=== PATIENT | male | born 1945 | race Caucasian/White ===

== ENCOUNTER 2016-07-24 17:42 | Observation (INO) | payer MEDICARE, BC ==
[2016-07-24] MEDS ORDERED: ASPIRIN 81 MG CHEW PO STA (18:46)
[2016-07-24] MEDS ORDERED: LORazepam 2 MG/ML SYRINGE IV STA (18:46)
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
[2016-07-24 19:08] LABS: ALT 42 U/L (21-72); AST 37 U/L (17-59); Alkaline Phosphatase 90 U/L (38-126); Anion Gap 12 mmol/L; Blood Urea Nitrogen 18 mg/dL (9-20); Carbon Dioxide 24 mmol/L (22-30); Chloride 106 mmol/L (98-107); Glucose 122 mg/dL (74-99); INR 1.2 (<1.1); Magnesium 1.4 mg/dL (1.6-2.3); Non-African American GFR(MDRD) >60 (>60 ml/min/1.73 sqM); Potassium 4.1 mmol/L (3.5-5.1); Prothrombin Time 11.7 sec (9.0-12.0); Sodium 142 mmol/L (137-145); Total Bilirubin 0.6 mg/dL (0.2-1.3); Total Protein 7.5 g/dL (6.3-8.2)
[2016-07-24 19:11] LABS: Basophils % (A) 0 %; CH 30.7; CHCM 35.4; Eosinophils # (A) 0.1 k/uL (0-0.7); Eosinophils % (A) 1 %; HCT 40.1 % (39.0-53.0); HDW 2.95; HGB 13.6 gm/dL (13.0-17.5); Luc # (Auto) 0.12; Luc % (Auto) 2; Lymphocytes # (A) 1.4 k/uL (1.0-4.8); Lymphocytes % (A) 19 %; MCH 29.5 pg (25.0-35.0); MCHC 33.9 g/dL (31.0-37.0); Mean Platelet Volume 6.9; Monocytes # (A) 0.5 k/uL (0-1.0); Monocytes % (A) 6 %; Neutrophils # (A) 5.3 k/uL (1.3-7.7); Neutrophils % (A) 72 %; RBC 4.61 m/uL (4.30-5.90); RDW 15.8 % (11.5-15.5); WBC 7.4 k/uL (3.8-10.6); WBC (Perox) 7.22
--- NOTE | 2016-07-24 19:17 | XR ---
EXAMINATION TYPE: XR chest 2V DATE OF EXAM: 07/24/2016 7:10 PM COMPARISON: Prior chest x-ray first of July 2012 HISTORY: Chest pain and palpitations, COPD TECHNIQUE: Frontal and lateral views of the chest are obtained. FINDINGS: Patient is rotated and the exam is expiratory. Prominence of the central vascularity and i nterstitium is noted. No pneumothorax. Arch size may be accentuated by rotation. There are overlying cardiac leads. IMPRESSION: Expiratory rotated exam. Difficult to exclude pulmonary venous hypertension and intersti tial edema, follow-up as indicated
[2016-07-24 19:24] LABS: Creatine Kinase 36 U/L (55-170)
[2016-07-24 19:37] LABS: Creatine Kinase MB 0.5 ng/mL (0.0-2.4); Troponin I <0.012 ng/mL (0.000-0.034)
[2016-07-24] MEDS ORDERED: NITROGLYCERIN OINT 1 INCH/GM PACKET TOPICAL STA (21:08)
[2016-07-24] MEDS ORDERED: NITROGLYCERIN SL TABS 0.4 MG TAB SUBLINGUAL PRN (21:10)
[2016-07-25] MEDS ORDERED: MAGNESIUM OXIDE 250 MG TAB PO STA (01:06)
[2016-07-25] MEDS: HEPARIN SODIUM,PORCINE 5,000 UNIT/ML 1 ML VIAL SQ SCH ×4 (01:07→23:46)
[2016-07-25 01:23] LABS: Creatine Kinase 34 U/L (55-170)
[2016-07-25] MEDS ORDERED: ONDANSETRON 4 MG/2 ML VIAL IVP STA (01:28)
[2016-07-25] MEDS: MAGNESIUM OXIDE 400 MG TAB PO STA ×2 (01:28→01:30)
[2016-07-25 01:37] LABS: Creatine Kinase MB 0.4 ng/mL (0.0-2.4); Troponin I <0.012 ng/mL (0.000-0.034)
[2016-07-25 07:56] LABS: Cholesterol 131 mg/dL (<200); HDL Cholesterol 43 mg/dL (40-60); Triglycerides 62 mg/dL (<150)
[2016-07-25 08:09] LABS: Creatine Kinase 34 U/L (55-170)
[2016-07-25] MEDS: NITROGLYCERIN OINT 1 INCH/GM PACKET TOPICAL SCH ×5 (08:19→23:46)
[2016-07-25 08:23] LABS: Creatine Kinase MB 0.6 ng/mL (0.0-2.4); Troponin I <0.012 ng/mL (0.000-0.034)
[2016-07-25] MEDS ORDERED: ASPIRIN 325 MG TAB PO SCH (09:00)
--- NOTE | 2016-07-25 09:54 | ECHOF ---
Referral Reason:cp MEASUREMENTS -------- HEIGHT: 180.3 cm WEIGHT: 127.5 kg BP: 116/57 RVIDd: 4.5 cm (< 3.3) IVSd: 1.6 cm (0.6 - 1.1) LVIDd: 4.5 cm (3.9 - 5.3) LVPWd: 1.5 cm (0.6 - 1.1) IVSs: 1.9 cm LVIDs: 2.5 cm LVPWs: 1.9 cm Ao Diam: 2.8 cm (2.0 - 3.7) AV Cusp: 1.5 cm (1.5 - 2.6) LA Diam: 5.0 cm (2.7 - 3.8) MV EXCURSION: 10.412 mm (> 18.000) MV E Roge: 0.62 m/s MV DecT: 277 ms MV A Roge: 0.71 m/s MV E/A Ratio: 0.88 AR PHT: 203 ms RAP: 5.00 mmHg RVSP: 35.64 mmHg FINDINGS -------- Sinus rhythm. This was a technically difficult study with suboptimal views. There is moderate concentric left ventricular hypertrophy. Overall left ventricular systolic function is normal with, an EF between 55 - 60 %. The right ventricle is severely enlarged. The left atrium is mildly dilated. RA appears enlarged. Cannot exclude shunt in the intratrial septum. Dropout seen. Aortic valve is trileaflet and is mildly thickened. There is mild aortic regurgitation. The mitral valve leaflets are mildly thickened. There is trace mitral regurgitation. Mild tricuspid regurgitation present. The right ventricular systolic pressure, as measured by Doppler, is 35.64mmHg. The aortic root size is normal. The pericardium is normal. CONCLUSIONS -------- 1. Sinus rhythm. 2. There is mild aortic regurgitation. 3. The mitral valve leaflets are mildly thickened. 4. There is trace mitral regurgitation. 5. Mild tricuspid regurgitation present. 6. The right ventricular systolic pressure, as measured by Doppler, is 35.64mmHg. 7. The aortic root size is normal. 8. The pericardium is normal. 9. This was a technically difficult study with suboptimal views. 10. There is moderate concentric left ventricular hypertrophy. 11. Overall left ventricular systolic function is normal with, an EF between 55 - 60 %. 12. The right ventricle is severely enlarged. 13. The left atrium is mildly dilated. 14. RA appears enlarged. 15. Cannot exclude shunt in the intratrial septum. Dropout seen. 16. Aortic valve is trileaflet and is mildly thickened. WIDE AREA NETWORK ENGINEER: Dulce Nix RDCS
[2016-07-25] MEDS ORDERED: ALBUTEROL NEBULIZED 2.5 MG/3 ML INHALATION PRN (12:08)
[2016-07-25] MEDS ORDERED: ARTIFICIAL TEARS-HYPROMELLOSE DROPS 15 ML BTL BOTH EYES PRN (12:08)
[2016-07-25] MEDS: PHENYTOIN SODIUM EXTENDED 100 MG CAP PO SCH ×4 (13:07→23:47)
[2016-07-25] MEDS: POTASSIUM CHLORIDE ER 10 MEQ TAB.ER.PRT PO SCH ×2 (13:07→14:05)
[2016-07-25] MEDS: PANTOPRAZOLE 40 MG TABLET PO SCH ×2 (13:07→14:06)
[2016-07-25] MEDS: METHADONE 10 MG TAB PO SCH ×4 (13:07→21:35)
[2016-07-25] MEDS: MELOXICAM 7.5 MG TAB PO SCH ×2 (13:07→14:06)
[2016-07-25] MEDS: CYANOCOBALAMIN 500 MCG TAB PO SCH ×2 (13:08→14:07)
[2016-07-25] MEDS: FERROUS SULFATE 325 MG TAB PO SCH ×2 (13:08→14:06)
[2016-07-25] MEDS: CHOLECALCIFEROL 1,000 UNIT TAB PO SCH ×2 (13:08→14:17)
[2016-07-25] MEDS: FUROSEMIDE 40 MG TAB PO SCH ×3 (13:08→21:36)
[2016-07-25] MEDS: FINASTERIDE 5 MG TAB PO SCH ×2 (13:08→14:06)
[2016-07-25] MEDS: B COMPLEX-VIT C-VIT E-ZINC 1 EACH TAB PO SCH ×2 (13:08→14:06)
[2016-07-25 15:20] VITALS: BMI 38.0
[2016-07-25] MEDS: IPRATROPIUM-ALBUTEROL 3 ML NEB INHALATION SCH ×2 (16:09→19:35)
[2016-07-25 16:56] LABS: Glucose,Whole Blood 124 mg/dL (75-99)
--- NOTE | 2016-07-25 20:29 | CONS ---
DATE OF CONSULTATION: Mr. Sánchez is a 71-year-old male patient who presented with an erratic heartbeat. He is also complaining of vague discomfort in the chest and shakiness. Medications were reviewed and include: 1. Aspirin. 2. Diltiazem. 3. Lasix. 4. Insulin. 5. Isosorbide. 6. Losartan. 7. Meloxicam. 8. Methadone. 9. Pantoprazole. 10. Phenytoin. 11. Potassium. 12. Ipratropium. 13. Albuterol. 14. Cyanocobalamin. 15. Vitamin B. ALLERGIES: He has NUMEROUS ALLERGIES, including GoLYTELY and STEROIDS, METHYLPREDNISOLONE. REVIEW OF SYSTEMS: No fever, chills or rigors. No cough or expectoration. No nausea, vomiting or diarrhea, hematuria or dysuria. No strokes or seizures. No skin lesions or musculoskeletal complaints. PAST MEDICAL HISTORY: Apparently he has coronary artery disease. He has 2 minor heart attacks. We do not have clear-cut documentation of that. He has GERD. He has a history of TIA, diabetes, hypertension, dyslipidemia, prostate problems and sleep apnea, uses BiPAP. On examination, when he came in his blood pressure was 133/81 mmHg. Pulse rate was in the 90s. Head and neck examination was normal. Heart sounds S1, S2 normal. Lungs clear on auscultation. Extremities are warm. No edema. His blood pressure now is 156/67 mmHg. Twelve-lead ECG was reviewed and shows normal sinus rhythm and normal cardiac intervals. No arrhythmias noted. All his ECGs were reviewed, and no arrhythmias are noted. IMPRESSION: Erratic heartbeat and vague chest discomfort in this gentleman with a history of underlying coronary artery disease, hypertension, dyslipidemia, diabetes, adult-onset. SUGGEST: 1. Dobutamine stress echo tomorrow. 2. Hypertension management.
[2016-07-25] MEDS ORDERED: DILTIAZEM CD 240 MG CAP.ER.24H PO SCH (21:00)
[2016-07-25] MEDS ORDERED: INSULIN GLARGINE 100 UNIT/ML 10 ML VIAL SQ SCH (21:00)
[2016-07-25 21:13] LABS: Glucose,Whole Blood 131 mg/dL (75-99)
[2016-07-25] MEDS: ISOSORBIDE MONONITRATE ER 30 MG TAB.ER.24H PO SCH (21:36)
[2016-07-26] MEDS ORDERED: ALPRAZolam 0.5 MG TAB PO PRN (05:35)
[2016-07-26] MEDS: NITROGLYCERIN OINT 1 INCH/GM PACKET TOPICAL SCH ×2 (05:39→12:55)
[2016-07-26] MEDS: PHENYTOIN SODIUM EXTENDED 100 MG CAP PO SCH ×2 (05:46→12:55)
[2016-07-26] MEDS: IPRATROPIUM-ALBUTEROL 3 ML NEB INHALATION SCH ×2 (06:54→13:25)
[2016-07-26] MEDS ORDERED: DOBUTamine DRIP for NUC MED 500 MG in DEXTROSE/WATER 1 250ML.BAG IV ONE (07:00)
[2016-07-26 07:03] LABS: Glucose,Whole Blood 103 mg/dL (75-99)
[2016-07-26] MEDS ORDERED: ASPIRIN 325 MG TAB PO SCH (09:00)
--- NOTE | 2016-07-26 09:15 | HP ---
DATE OF ADMISSION: CHIEF COMPLAINT: Chest pain with irregular heartbeat. HISTORY OF PRESENT ILLNESS: Mr. Sánchez is a 71-year-old male with a known history of coronary artery disease, but no history of PCI, hypertension, hyperlipidemia, diabetes, history of CVA/TIA, and multiple other medical problems including sleep apnea on CPAP machine, came to the hospital with complaints of shakiness and heart beating fast. Patient also felt some chest pain and discomfort and patient also says that he is noted to have low blood pressure as well. Patient is a very poor historian. Patient otherwise denied any recent medical problems. Apparently, patient follows with the [facility]. The patient says that he had cardiac catheterization about 15 years ago, but no stent was placed. The patient is also on methadone and also history of chronic back pain benign prostatic hypertrophy. The patient denied any recent stress test. No recent illnesses. The complete review of systems could not be obtained from patient. Past medical history includes coronary artery disease, COPD, CVA/TIA, diabetes mellitus, GERD, hearing disorder/deafness, hyperlipidemia, hypertension, liver disease, memory impairment, history of NH, BPH, seizure disorder, obstructive sleep apnea on CPAP, hypothyroidism, history of heart murmur. PAST SURGICAL HISTORY: Cardiac catheterization, hernia repair, right great toe joint surgery, right shoulder surgery, right cataract surgery, double hernia repair and hydrocele repair. SOCIAL HISTORY: The patient is a former smoker. Quit smoking approximately 50 years ago. Smoke in the a very short time and little amount. ( ) alcohol. Denied any drugs or IVDU. FAMILY HISTORY: Mother had liver disease, pneumonia and alcoholism. Father had cancer. Allergies include DEPO-MEDROL, GABAPENTIN, POLYETHYLENE GLYCOL, POTASSIUM CHLORIDE FROM [employer], PREGABALIN. Home medication include: 1. Artificial tear drops. 2. Aspirin. 3. Cholecalciferol. 4. Cardizem CD. 5. Ferrous sulfate. 6. Finasteride. 7. Lasix. 8. Lantus. 9. Imdur. 10. Cozaar. 11. Meloxicam. 12. Methadone. 13. Pantoprazole. 14. Phenytoin. 15. Potassium chloride. 16. Combivent. 17. Albuterol inhaler. 18. Cyanocobalamin. 19. Vitamin B complex. PHYSICAL EXAMINATION: A 71-year-old male lying in bed. Awake, alert, oriented x2. Appears to in no apparent distress. VITALS: Blood pressure is 154/82, pulse is 94, respirations 16, temperature afebrile, pulse ox 95% on room air. HEENT: Atraumatic, normocephalic. Neck is supple. No JVD. CVS EXAM: S1, S2 heard. Systolic murmur positive. No gallop. No leg swelling. LUNGS: Bilateral air entry is present. No wheezing. No crackles. Nonlabored breathing. ABDOMEN: Soft, nontender. Bowel sounds present. CONTAINER FINISHING INSPECTOR: Awake, alert and oriented x3. Able to move all his extremities. EXTREMITIES: No edema. Pulses palpable bilaterally. No clubbing or cyanosis. PSYCHIATRIC: Cooperative. LABORATORY DATA: WBC 7.4, hemoglobin 13.6, platelets 105. INR 1.2. Sodium 142, potassium 4.1, chloride 106, bicarb is 24. BUN 18, creatinine 0.95. Magnesium 1.4. Troponin x3 is negative. LDL is 76. EKG showed normal sinus rhythm with sinus arrhythmia. Chest x-ray expiratory rotated exam. Difficult to exclude pulmonary venous hypertension and interstitial edema. Follow up as indicated. IMPRESSION: 1. Feeling of irregular heartbeat with chest discomfort. 2. History of coronary artery disease. 3. Uncontrolled hypertension. 4. Hyperlipidemia. 5. Hypothyroidism. 6. Seizure disorder. 7. Chronic back pain. 8. Insulin-dependent diabetes mellitus type 2. 9. Chronic obstructive pulmonary disease not in exacerbation. 10. Benign prostatic hypertrophy. 11. Deep venous thrombosis prophylaxis. DISCUSSION AND PLAN: Patient will be continued on telemonitoring. Serial EKGs and troponins. Will rule out acute coronary syndrome. Cardiology is planning for stress echo tomorrow. Otherwise, will continue current management. Further recommendations based on the clinical course. Most of the history was taken from medical records and staff.
[2016-07-26] MEDS ORDERED: BISACODYL 5 MG TABLET.DR PO PRN (09:22)
[2016-07-26] MEDS: PANTOPRAZOLE 40 MG TABLET PO SCH (09:24)
[2016-07-26] MEDS: ISOSORBIDE MONONITRATE ER 30 MG TAB.ER.24H PO SCH (09:24)
[2016-07-26] MEDS: FINASTERIDE 5 MG TAB PO SCH (09:24)
[2016-07-26] MEDS: FUROSEMIDE 40 MG TAB PO SCH (09:24)
[2016-07-26] MEDS: POTASSIUM CHLORIDE ER 10 MEQ TAB.ER.PRT PO SCH (09:24)
[2016-07-26] MEDS: METHADONE 10 MG TAB PO SCH ×2 (09:25→12:56)
[2016-07-26] MEDS: HEPARIN SODIUM,PORCINE 5,000 UNIT/ML 1 ML VIAL SQ SCH (09:25)
[2016-07-26] MEDS: MELOXICAM 7.5 MG TAB PO SCH (09:26)
--- NOTE | 2016-07-26 10:47 | ECHOS ---
DATE OF SERVICE: 07/26/2016 AGE: 71Y SEX: M HT: 72" WT: 279 lbs. Protocol Odell: Others: Dobutamine Stress Echo Stage: 2 Dur. of Exercise: 4:45 *Heart Rate Blood Pressure *Rest: 92 Rest: 154/53 * *Max. Achieved: 127 Maximum BP: 186/72 85% PMHR: 127 100% PMHR: 147 *METS: - INDICATIONS: Chest pain. MEDICATIONS: - The test is being done to evaluate symptoms of chest pain and shortness of breath. STRESS DATA: Baseline EKG showed a sinus rhythm with normal OR interval and QRS duration. Blood pressure at rest is 154/53 with a pulse rate of 92. Dobutamine was initiated at 10 mcg and was titrated to 20 mcg achieving a maximum heart rate pressure 127 with blood pressure of 186/72. EKGs taken during and after infusion did not reveal any changes to suggest ischemia. ECHO DATA: Baseline echo images show normal wall motion and thickening. Images taken at low-dose and high-dose of dobutamine showed augmentation of the wall motion thickening in all the segments. FINAL IMPRESSION: 1. Negative dobutamine stress. 2. Negative dobutamine stress echo.
[2016-07-26] MEDS ORDERED: LOSARTAN 50 MG TAB PO SCH (12:00)
[2016-07-26 12:10] LABS: Glucose,Whole Blood 182 mg/dL (75-99)
[2016-07-26 12:23] VITALS: BP 144/66; PULSE 68; RESP 18; TEMP 98
[2016-07-26] MEDS: B COMPLEX-VIT C-VIT E-ZINC 1 EACH TAB PO SCH (12:55)
[2016-07-26] MEDS: CYANOCOBALAMIN 500 MCG TAB PO SCH (12:55)
[2016-07-26] MEDS: FERROUS SULFATE 325 MG TAB PO SCH (12:56)
[2016-07-26] MEDS: CHOLECALCIFEROL 1,000 UNIT TAB PO SCH (12:56)
--- NOTE | 2016-07-27 20:01 | DS ---
DATE OF ADMISSION: 07/24/2016 DATE OF DISCHARGE: 07/26/2016 DISCHARGE DIAGNOSIS(ES): 1. Chest pain s/p negative stress test. Dobutamine stress echo. 2. Feeling of irregular heartbeat, discomfort, ruled out acute coronary syndrome at this time. 3. History of coronary artery disease. 4. Uncontrolled hypertension. 5. Hypertension. 6. Hyperlipidemia. 7. Hypothyroidism. 8. Seizure disorder. 9. Chronic back pain. 10. Insulin-dependent type 2 diabetes mellitus. 11. Chronic obstructive pulmonary disease not in exacerbation . 12. Benign prostatic hypertrophy. 13. Deep venous thrombosis prophylaxis with heparin subcu. DISCUSSION AND Plan: This 71 -year-old male was admitted to the hospital with complaints of shakiness and heart beating fast and also chest discomfort. Otherwise, the patient is a poor historian. The patient able to follow at [facility] in [place]. The patient telemonitored in the hospital. EKG showed normal sinus rhythm and serial troponins are negative. Patient seen by cardiology and recommend dobutamine stress echo which was done today. Dobutamine stress echo showed negative dobutamine stress and negative dobutamine stress echo as well. Otherwise, the patient is stable for discharge from cardiology standpoint and follow with primary care physician at the [facility] in [place]. DISCHARGE PHYSICAL EXAMINATION: 71 -year-old male lying in bed comfortably, awake, alert and oriented times three. Appears to be in no apparent distress. VITALS: Blood pressure is 144/66, pulse is 68, respiratory rate 18, temperature afebrile, pulse ox 94% on room air. LABORATORY DATA: Reviewed. Discharge physical examination done. Discharge medications include: 1. Artificial tears 2 drops both eyes t.i.d. 2. Aspirin 325 mg p.o. daily. 3. Vitamin D3 2000 units p.o. daily. 4. Cardizem CD 240 mg p.o. q.h.s. 5. Ferrous sulfate 325 mg p.o. daily. 6. Proscar 5 mg p.o. daily. 7. Lasix 40 mg p.o. b.i.d. 8. Lantus 45 units subcu at bedtime. 9. Imdur 30 mg p.o. b.i.d. 10. Losartan 100 p.o. at 12 o'clock. 11. Meloxicam 15 mg p.o. daily. 12. Methadone 10 mg p.o. q.i.d. 13. Pantoprazole 40 mg p.o. daily. 14. Phenytoin 100 mg p.o. q.6 hourly. 15. Potassium chloride 10 meq p.o. daily. 16. Combivent 1 puff inhalation t.i.d. 17. Albuterol inhaler 1 to 2 puffs q.6 hourly p.r.n. for short of breath. 18. Vitamin B12 2000 mcg p.o. daily. 19. Vitamin B complex 1 capsule p.o. daily. Patient will be discharged home in stable condition. Activity as tolerate. Heart healthy diet. Follow with the [facility] in [place] and home with self-care. NUVIA
== END 2016-07-26 14:10 | disposition home or self-care (01) ==
LOC: EC 17:42 → 3OBS 21:11
PROVIDERS: ADMIT Internal Medicine; ATTEND Internal Medicine
DX: R00.9 Unspecified abnormalities of heart beat (principal); I25.10 Atherosclerotic heart disease of native coronary artery without angina pectoris; I10 Essential (primary) hypertension; E78.5 Hyperlipidemia, unspecified; E03.9 Hypothyroidism, unspecified; G40.909 Epilepsy, unspecified, not intractable, without status epilepticus; G89.29 Other chronic pain; M54.9 Dorsalgia, unspecified; E11.9 Type 2 diabetes mellitus without complications; J44.9 Chronic obstructive pulmonary disease, unspecified; N40.0 Benign prostatic hyperplasia without lower urinary tract symptoms; I50.9 Heart failure, unspecified; K21.9 Gastro-esophageal reflux disease without esophagitis; I25.2 Old myocardial infarction; G47.30 Sleep apnea, unspecified; G62.9 Polyneuropathy, unspecified; K74.60 Unspecified cirrhosis of liver; R11.0 Nausea; M79.602 Pain in left arm; Z99.81 Dependence on supplemental oxygen; Z87.891 Personal history of nicotine dependence; Z86.73 Personal history of transient ischemic attack (TIA), and cerebral infarction without residual deficits; Z79.82 Long term (current) use of aspirin; Z79.4 Long term (current) use of insulin; Z79.891 Long term (current) use of opiate analgesic; Z79.899 Other long term (current) drug therapy; Z88.8 Allergy status to other drugs, medicaments and biological substances; Z80.9 Family history of malignant neoplasm, unspecified
CPT/HCPCS: 36415; 94640 ×2; 94760; 93005; 93017; 93306; 83880; 80061; 80053; 82550 ×2; 82553 ×2; 83735; 84484 ×2; 85025; 85610; 85730; 71020; 99285; 96374; 96375; 96372 ×2; G0378 ×3; C8928; S0138 ×2; J2060; J1250; J1644 ×2; J2405; Q9957; S0109 ×2; 93350

== ENCOUNTER 2016-08-09 08:12 | Day surgery (SDC) | payer MEDICARE, BC ==
[2016-08-08 12:33] VITALS: BMI 36.9
[~2016-08-09 08:12] MED LIST: LACTATED RINGERS 1,000 ML IV SCH; LIDOCAINE 1% 20 ML VIAL (10MG/ML) FOR IV START INTRADERMA PRN
[2016-08-09 08:57] VITALS: RESP 16; TEMP 98.1
[2016-08-09 09:07] LABS: Glucose,Whole Blood 96 mg/dL (75-99)
[2016-08-09] MEDS ORDERED: LIDOCAINE 1% INJ 10MG/ML (20 ML MDV) ONE (09:11)
[2016-08-09] MEDS ORDERED: PROPOFOL 10 MG/ML 20 ML VIAL IV ONE (09:11)
[2016-08-09 10:10] VITALS: BP 138/73; PULSE 67
--- NOTE | 2016-08-09 10:26 | P.PCN ---
Date of Procedure: 08/09/16 Procedure(s) Performed: Procedure: Esophagogastroduodenoscopy. Preoperative diagnosis: History of cirrhosis of the liver to assess for esophageal varices. Postoperative diagnosis: Small esophageal and gastric varices without stigmata of bleeding. Portal gastropathy. Preparation and sedation: Was provided by anesthesia. Brief clinical history: The patient is a 71-year-old male who was evaluated in the office and scheduled for this evaluation because of history of liver cirrhosis and to assess for esophageal varices. Apparently, he had a prior exam 2 or 3 years ago and he was noted to have small esophageal varices. He indicated to me today that he is having issues with dysphagia as well as. No weight loss bleeding or other alarm symptoms. Procedure: With the patient on his left lateral decubitus position and after informed consent and adequate sedation, I passed the Olympus-GIF 160 video upper endoscope through the cricopharyngeus down the esophagus. GE junction was around 42-43 cm from the incisors. The endoscope was then passed into the stomach which was insufflated with air and inspected in detail including the retroflex view in the cardia. Finally the endoscope was passed to the pylorus into the duodenum. Pyloric channel, duodenal bulb, post bulbar area and descending duodenum appeared within normal limits. The stomach showed mottling erythema and other mucosal changes of portal gastropathy but there was no ulcers or active bleeding. I noted small gastric varices in the fundus with no evidence or stigmata of bleeding. The esophagus did not show any erosions, ulcers, strictures or Cavanaugh's esophagus. The workup. Small short columns of varices without stigmata of bleeding in the distal esophagus. The patient tolerated the procedure well. Plan: The patient was reassured. He will follow up with you as planned, I recommended that he takes beta blockers. I will repeat his EGD in 2-3 years.
== END 2016-08-09 10:24 | disposition home or self-care (01) ==
LOC: ORWHC2ENDO 08:12
DX: K74.60 Unspecified cirrhosis of liver (principal); I85.10 Secondary esophageal varices without bleeding; I86.4 Gastric varices; K76.6 Portal hypertension; K31.89 Other diseases of stomach and duodenum; R13.10 Dysphagia, unspecified; I25.10 Atherosclerotic heart disease of native coronary artery without angina pectoris; I10 Essential (primary) hypertension; G47.33 Obstructive sleep apnea (adult) (pediatric); J44.9 Chronic obstructive pulmonary disease, unspecified; J45.909 Unspecified asthma, uncomplicated; K21.9 Gastro-esophageal reflux disease without esophagitis; I25.2 Old myocardial infarction; Z79.1 Long term (current) use of non-steroidal anti-inflammatories (NSAID); Z79.82 Long term (current) use of aspirin; Z79.4 Long term (current) use of insulin; Z79.899 Other long term (current) drug therapy
CPT/HCPCS: 43235; J2001; J2704; 99153

== ENCOUNTER 2016-08-18 11:12 | Emergency (ER) | payer MEDICARE, BC ==
[2016-08-18 11:24] VITALS: RESP 18
[2016-08-18] MEDS ORDERED: HYDROmorphone 1 MG/ML 1 ML SYRINGE IVP STA (11:56)
[2016-08-18] MEDS ORDERED: SODIUM CHLORIDE 0.9% 1,000 ML IV STA (11:56)
[2016-08-18] MEDS ORDERED: ONDANSETRON 4 MG/2 ML VIAL IVP STA (11:56)
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
[2016-08-18 12:29] LABS: Basophils # (A) 0.1 k/uL (0-0.2); Basophils % (A) 1 %; CH 31.4; CHCM 35.7; Eosinophils # (A) 0.3 k/uL (0-0.7); Eosinophils % (A) 2 %; HCT 42.8 % (39.0-53.0); HDW 3.14; HGB 14.5 gm/dL (13.0-17.5); Luc # (Auto) 0.24; Luc % (Auto) 2; Lymphocytes % (A) 18 %; MCH 29.8 pg (25.0-35.0); MCHC 33.8 g/dL (31.0-37.0); MCV 88.2 fL (80.0-100.0); Monocytes # (A) 0.7 k/uL (0-1.0); Monocytes % (A) 7 %; Neutrophils # (A) 7.6 k/uL (1.3-7.7); Neutrophils % (A) 70 %; RBC 4.85 m/uL (4.30-5.90); RDW 14.7 % (11.5-15.5); WBC 10.8 k/uL (3.8-10.6); WBC (Perox) 10.71
[2016-08-18] MEDS ORDERED: KETOROLAC 30 MG/ML 1 ML VIAL IVP STA (12:38)
[2016-08-18 12:39] LABS: INR 1.2 (<1.1); Prothrombin Time 11.7 sec (9.0-12.0)
[2016-08-18 12:41] LABS: ALT 49 U/L (21-72); AST 48 U/L (17-59); Alkaline Phosphatase 95 U/L (38-126); Anion Gap 15 mmol/L; Blood Urea Nitrogen 17 mg/dL (9-20); Carbon Dioxide 24 mmol/L (22-30); Chloride 105 mmol/L (98-107); Glucose 141 mg/dL (74-99); Magnesium 1.5 mg/dL (1.6-2.3); Non-African American GFR(MDRD) >60 (>60 ml/min/1.73 sqM); Sodium 144 mmol/L (137-145); Total Protein 7.7 g/dL (6.3-8.2)
[2016-08-18 12:59] LABS: Creatine Kinase 97 U/L (55-170)
[2016-08-18 13:12] LABS: Creatine Kinase MB 1.1 ng/mL (0.0-2.4); Troponin I <0.012 ng/mL (0.000-0.034)
--- NOTE | 2016-08-18 13:36 | XR ---
EXAMINATION TYPE: XR chest 2V DATE OF EXAM: 08/18/2016 1:00 PM COMPARISON: 07/24/2016 TECHNIQUE: PA and lateral views submitted. HISTORY: Chest pain FINDINGS: The lungs are clear and there is no pneumothorax, pleural effusion, or focal pneumonia. Heart is en larged. Arthropathy of the shoulder noted on the right. Poor inspiration limits technique. IMPRESSION: 1. No acute process. Stable cardiomegaly
[2016-08-18 14:14] LABS: Appearance,Urine Clear (Clear); Bilirubin,Urine Negative (Negative); Glucose,Urine (UA) Negative (Negative); Ketones,Urine Negative (Negative); Leukocyte Esterase,Urine Negative (Negative); Nitrite,Urine Negative (Negative); PH, Urine 5.5 (5.0-8.0); Protein,Urine Negative (Negative); Specific Gravity,Urine 1.013 (1.001-1.035); UA Billing (MACRO vs. MICRO) CHEM; Urobilinogen,Urine <2.0 mg/dL (<2.0)
[2016-08-18 14:59] VITALS: BP 147/67; PULSE 84; TEMP 96.9
== END 2016-08-18 14:59 | disposition home or self-care (01) ==
LOC: EC 11:12
DX: K52.9 Noninfective gastroenteritis and colitis, unspecified (principal); J44.9 Chronic obstructive pulmonary disease, unspecified; J45.909 Unspecified asthma, uncomplicated; G89.29 Other chronic pain; K74.60 Unspecified cirrhosis of liver; I10 Essential (primary) hypertension; E11.9 Type 2 diabetes mellitus without complications; G40.909 Epilepsy, unspecified, not intractable, without status epilepticus; K21.9 Gastro-esophageal reflux disease without esophagitis; I25.10 Atherosclerotic heart disease of native coronary artery without angina pectoris; Z98.61 Coronary angioplasty status; Z79.82 Long term (current) use of aspirin; Z79.899 Other long term (current) drug therapy; Z79.4 Long term (current) use of insulin; I25.2 Old myocardial infarction; Z86.73 Personal history of transient ischemic attack (TIA), and cerebral infarction without residual deficits; Z87.891 Personal history of nicotine dependence; Z88.8 Allergy status to other drugs, medicaments and biological substances
CPT/HCPCS: 36415; 93005; 80053; 82550; 82553; 83735; 84484; 85025; 85610; 85730; 81003; 71020; 99285; 96374; 96375; 96361; J2405; J1885; J1170

== ENCOUNTER 2016-09-21 09:02 | Inpatient (IN) | payer MEDICARE, BC ==
[2016-09-21] MEDS ORDERED: ASPIRIN 81 MG CHEW PO STA (09:34)
[2016-09-21] MEDS ORDERED: NITROGLYCERIN OINT 1 INCH/GM PACKET TOPICAL STA (09:34)
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
[2016-09-21 09:57] LABS: Basophils # (A) 0.1 k/uL (0-0.2); Basophils % (A) 1 %; CH 31.3; CHCM 35.2; Eosinophils # (A) 0.1 k/uL (0-0.7); Eosinophils % (A) 2 %; HCT 41.4 % (39.0-53.0); HDW 2.77; HGB 14.3 gm/dL (13.0-17.5); Luc # (Auto) 0.18; Luc % (Auto) 2; Lymphocytes # (A) 1.2 k/uL (1.0-4.8); Lymphocytes % (A) 14 %; MCH 30.8 pg (25.0-35.0); MCHC 34.5 g/dL (31.0-37.0); MCV 89.3 fL (80.0-100.0); Mean Platelet Volume 7.8; Monocytes # (A) 0.5 k/uL (0-1.0); Monocytes % (A) 6 %; Neutrophils # (A) 6.4 k/uL (1.3-7.7); Neutrophils % (A) 75 %; RBC 4.63 m/uL (4.30-5.90); RDW 14.1 % (11.5-15.5); WBC 8.5 k/uL (3.8-10.6); WBC (Perox) 8.74
--- NOTE | 2016-09-21 10:07 | XR ---
EXAMINATION TYPE: XR chest 2V DATE OF EXAM: 09/21/2016 10:02 AM COMPARISON: 08/18/2016 TECHNIQUE: PA and lateral views submitted. HISTORY: Chest pain FINDINGS: Heart is enlarged and hyperinflation suggestive of COPD. Hypertrophic change of the spine noted. Subs egmental changes are seen on the lateral view overlying the cardiac silhouette. IMPRESSION: 1. COPD and cardiomegaly. Suspect subsegmental atelectasis or infiltrate in the lateral view likely w ithin the lingular segment left upper lobe.
[2016-09-21 10:10] LABS: Partial Thromboplastin Time 24.3 sec (22.0-30.0)
[2016-09-21 10:17] LABS: Creatine Kinase 36 U/L (55-170)
[2016-09-21 10:20] LABS: ALT 34 U/L (21-72); AST 41 U/L (17-59); Alkaline Phosphatase 85 U/L (38-126); Anion Gap 11 mmol/L; Blood Urea Nitrogen 22 mg/dL (9-20); Calcium 8.9 mg/dL (8.4-10.2); Carbon Dioxide 27 mmol/L (22-30); Chloride 104 mmol/L (98-107); Glucose 102 mg/dL (74-99); Magnesium 1.4 mg/dL (1.6-2.3); Non-African American GFR(MDRD) >60 (>60 ml/min/1.73 sqM); Sodium 142 mmol/L (137-145); Total Bilirubin 0.9 mg/dL (0.2-1.3)
[2016-09-21 10:23] LABS: INR 1.2 (<1.1); Prothrombin Time 11.6 sec (9.0-12.0)
[2016-09-21 10:31] LABS: Creatine Kinase MB 0.6 ng/mL (0.0-2.4); Troponin I <0.012 ng/mL (0.000-0.034)
[2016-09-21] MEDS ORDERED: NITROGLYCERIN SL TABS 0.4 MG TAB SUBLINGUAL PRN (10:45)
[2016-09-21] MEDS ORDERED: MAGNESIUM SULFATE-D5W PMX 1 GM in DEXTROSE/WATER 1 100ML.BAG IVPB ONE (11:00)
[2016-09-21 11:58] LABS: Glucose,Whole Blood 97 mg/dL (75-99)
[2016-09-21] MEDS: NITROGLYCERIN OINT 1 INCH/GM PACKET TOPICAL SCH ×2 (12:00→18:23)
[2016-09-21] MEDS: METHADONE 10 MG TAB PO SCH ×3 (14:11→21:58)
[2016-09-21 15:08] LABS: Glucose,Whole Blood 80 mg/dL (75-99)
[2016-09-21 16:15] LABS: Creatine Kinase 32 U/L (55-170)
[2016-09-21 16:28] LABS: Creatine Kinase MB 0.4 ng/mL (0.0-2.4); Troponin I <0.012 ng/mL (0.000-0.034)
--- NOTE | 2016-09-21 16:52 | P.CRDCN ---
History of Present Illness Consult date: 09/21/16 Consult reason: chest pain History of present illness: 71-year-old gentleman with chronic pain on methadone comes to the hospital complaining of dizziness and low blood pressure and chest pain. His chest discomfort is vague atypical probably noncardiac. He also felt some fluttering in his heart. This symptomatology is very similar to the symptoms he had back in July of this year at that time he was ruled out for myocardial infarction and underwent a dobutamine echo that was negative for ischemia. At the time of my evaluation he appears comfortable at rest and is free of symptoms one set of troponin is negative EKG does not reveal ischemic changes. 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 He does not require invasive angiography. Review of Systems Constitutional: Denies chills. Denies fever. Eyes: Denies blurred vision. Denies pain. Ears, nose, mouth and throat: Denies headache. Denies sore throat. Cardiovascular: Has chest pain. Denies shortness of breath. Respiratory: Denies cough. Gastrointestinal: Denies abdominal pain. Denies diarrhea. Denies nausea. Denies vomiting. Musculoskeletal: Denies myalgias. Patient has joint pains Integumentary: Denies pruritus. Denies rash. Neurological: Denies numbness. Denies weakness. Psychiatric: Denies anxiety. Denies depression. Endocrine: Denies fatigue. Denies weight change. Genitourinary: Denies burning, hematuria, frequency of urination. Hematological: No anemia or excess bleeding. 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 HX PA X2; POSS CVA. hx ulcer, "MEMORY PROB R/T HX head injury" NEUROPATHY AVA FEET, CHRONIC BACK PAIN, occasional cervical pain, no. cpap, ON O2 2L NC AT Night & PRN. DIFF SWALLOWING, constipation, liver-cirrhosis, anemia, enlarged spleen, heart murmur, L cataract , seizures with last seizure-pt thinks last seizure July 2016-states he has "mini-mals-I go out and can't wake up". Last Myocardial Infarction Date:: 1989 History of Any Multi-Drug Resistant Organisms: None Reported Past Surgical History: Heart Catheterization, Hernia Repair, Orthopedic Surgery , Tonsillectomy Additional Past Surgical History / Comment(s): 08/09/16 EGD. Other surgical hx: past EGD/colonoscopy, RT GREAT TOE JOINT, RT SHOULDER rotator cuff repair. rt cataract, bilateral inguinal hernia repairs & hydrocele repair Past Anesthesia/Blood Transfusion Reactions: Motion Sickness, Postoperative Nausea & Vomiting (PONV) Additional Past Anesthesia/Blood Transfusion Reaction / Comment(s): no hx blood transfusion Past Psychological History: No Psychological Hx Reported, Depression Additional Psychological History / Comment(s): Pt has his son and his son's family living with him. They should be moving out soon. He has no home care. He uses a cane to ambulate or a walker or scooter. He drives. 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 Smoking Status: Former smoker Past Alcohol Use History: None Reported Additional Past Alcohol Use History / Comment(s): quit smoking approx 50 yrs ago ,smoked in -very short time and little amount Past Drug Use History: None Reported - Past Family History Mother Family Medical History: Liver Disease, Pneumonia Additional Family Medical History / Comment(s): alcoholism Father Family Medical History: Cancer Additional Family Medical History / Comment(s): Father had lung cancer with mets to brain. He was a nonsmoker but his spouse smoked in the house. Medications and Allergies Home Medications Medication Instructions Recorded Confirmed Type Artificial Tears-Hypromellose 2 drops BOTH EYES TID PRN 04/14/15 09/21/16 History [Artificial Tear Drops] Aspirin EC [Ecotrin] 325 mg PO DAILY 04/14/15 09/21/16 History Cholecalciferol [Vitamin D3] 1,000 unit PO DAILY 04/14/15 09/21/16 History Diltiazem Cd [Cardizem CD] 240 mg PO HS 04/14/15 09/21/16 History Ferrous Sulfate [Feosol] 325 mg PO DAILY 04/14/15 09/21/16 History Finasteride [Proscar] 5 mg PO DAILY 04/14/15 09/21/16 History Furosemide [Lasix] 40 mg PO BID 04/14/15 09/21/16 History Insulin Glargine [Lantus] 45 unit SQ HS 04/14/15 09/21/16 History Isosorbide Mononitrate ER [Imdur] 30 mg PO BID 04/14/15 09/21/16 History Losartan Potassium [Cozaar] 100 mg PO DAILY@1200 04/14/15 09/21/16 History Meloxicam 15 mg PO DAILY 04/14/15 09/21/16 History Methadone [Dolophine] 10 tab PO QID 04/14/15 09/21/16 History Pantoprazole Sodium 40 mg PO DAILY 04/14/15 09/21/16 History Phenytoin Sodium Extended 100 mg PO QID 04/14/15 09/21/16 History [Dilantin] Potassium Chloride [Klor-Con 10] 10 meq PO DAILY 04/14/15 09/21/16 History Ipratropium/Albuterol Sulfate 1 puff INHALATION RT-TID 01/01/16 09/21/16 History [Combivent Respimat Inhaler] Cyanocobalamin (Vitamin B-12) 2,000 mcg PO DAILY 07/24/16 09/21/16 History [Vitamin B-12] Vitamin B Complex 1 cap PO DAILY 07/24/16 09/21/16 History Allergies Allergy/AdvReac Type Severity Reaction Status Date / Time methylprednisolone acetate Allergy Severe face and Verified 09/21/16 10:16 [From Depo-Medrol] throat swelling cephalexin [From Keflex] Allergy Rash/Hives Verified 09/21/16 10:16 gabapentin [From Neurontin] Allergy TREMORS Verified 09/21/16 10:16 polyethylene glycol Allergy Confusion Verified 09/21/16 10:16 [From Golytely] polyethylene glycol 3350 Allergy Confusion Verified 09/21/16 10:16 [From Golytely] potassium chloride Allergy Confusion Verified 09/21/16 10:16 [From Golytely] pregabalin [From Lyrica] Allergy INTENSE Verified 09/21/16 10:16 BURNING THROUGH BODY sodium [From Golytely] Allergy Confusion Verified 09/21/16 10:16 sodium bicarbonate Allergy Confusion Verified 09/21/16 10:16 [From Golytely] sodium chloride Allergy Confusion Verified 09/21/16 10:16 [From Golytely] sodium sulfate Allergy Confusion Verified 09/21/16 10:16 [From Golytely] sodium sulfate anhydrous Allergy Confusion Verified 09/21/16 10:16 [From Golytely] Physical Exam Vitals: Vital Signs Temp Pulse Pulse Resp BP BP Pulse Ox 09/21/16 15:00 97.5 F L 68 18 150/67 94 L 09/21/16 13:45 97.6 F 68 18 121/60 97 09/21/16 12:59 98.0 F 80 16 96 09/21/16 11:56 73 14 149/69 100 09/21/16 10:59 98.1 F 64 14 144/65 99 Intake and Output 09/21/16 09/21/16 09/21/16 06:59 14:59 22:59 Other: Voiding Method Toilet # Voids 1 General: The patient is awake and alert, in no distress, and does not appear acutely ill. Skin: Skin is warm and dry and no rashes or lesions are noted. Eye: Pupils are equal, round and reactive to light, extra-ocular movements are intact; there is normal conjunctiva bilaterally. Ears, nose, mouth and throat: There are moist mucous membranes and no oral lesions. Neck: The neck is supple, there is no tenderness or JVD. Cardiovascular: There is a regular rate and rhythm. No murmur, rub or gallop is appreciated. Respiratory: Lungs are clear to auscultation, respirations are non-labored, breath sounds are equal. Gastrointestinal: Soft, non-distended, non-tender abdomen without masses or organomegaly noted. There is no rebound or guarding present. Bowel sounds are unremarkable. Back: There is no tenderness to palpation in the midline. There is no obvious deformity. Musculoskeletal: Normal ROM, no tenderness, There is no pedal edema. There is no calf tenderness or swelling. Extremities: No edema. Vascular: Femoral pulse is normal. Posterior tibial pulses are normal .Dorsalis pedis is palpable. Neurological: CN II-XII intact. There are no obvious motor or sensory deficits. Speech is normal. Psychiatric: Cooperative, appropriate mood & affect, normal judgment. Results 09/21/16 09:25 09/21/16 09:25 Cardiac Enzymes 09/21/16 Range/Units 15:28 CK-MB (CK-2) 0.4 (0.0-2.4) ng/mL Troponin I <0.012 (0.000-0.034) ng/mL Current Medications Generic Name Dose Route Start Last Admin Trade Name Freq PRN Reason Stop Dose Admin Aspirin 325 mg 09/22/16 09:00 Aspirin PO DAILY [facility] Methadone HCl 10 mg 09/21/16 13:00 09/21/16 14:11 Dolophine PO 10 mg QID [facility] Administration Nitroglycerin 1 inch 09/21/16 12:00 09/21/16 12:00 Nitro-Bid Oint TOPICAL Not Given Q6HR [facility] Nitroglycerin 0.4 mg 09/21/16 10:45 Nitrostat SUBLINGUAL Q5M PRN Chest Pain Intake and Output 09/21/16 09/21/16 09/21/16 06:59 14:59 22:59 Other: Voiding Method Toilet # Voids 1 EKG Interpretations (text) Normal sinus rhythm without acute ST-T wave changes Assessment and Plan Plan: Precordial chest pain Hypertension Patient chest discomfort is atypical I reviewed the dobutamine echo that he had was negative if cardiac enzymes are negative he does not require further cardiac workup at this time.
[2016-09-21 17:10] LABS: Glucose,Whole Blood 109 mg/dL (75-99)
[2016-09-21 21:50] LABS: Glucose,Whole Blood 83 mg/dL (75-99)
[2016-09-21 22:32] LABS: Creatine Kinase 32 U/L (55-170)
[2016-09-21] MEDS ORDERED: ARTIFICIAL TEARS-HYPROMELLOSE DROPS 15 ML BTL BOTH EYES PRN (22:34)
[2016-09-21 22:45] LABS: Creatine Kinase MB 0.4 ng/mL (0.0-2.4); Troponin I <0.012 ng/mL (0.000-0.034)
[2016-09-21] MEDS ORDERED: INSULIN GLARGINE 100 UNIT/ML 10 ML VIAL SQ SCH (22:45)
[2016-09-21] MEDS ORDERED: DILTIAZEM CD 240 MG CAP.ER.24H PO SCH (22:45)
[2016-09-22 01:39] LABS: Glucose,Whole Blood 93 mg/dL (75-99)
[2016-09-22] MEDS: HEPARIN SODIUM,PORCINE 5,000 UNIT/ML 1 ML VIAL SQ SCH ×2 (06:16→08:43)
[2016-09-22] MEDS: NITROGLYCERIN OINT 1 INCH/GM PACKET TOPICAL SCH ×3 (06:17→12:16)
[2016-09-22] MEDS: METHADONE 10 MG TAB PO SCH ×2 (06:26→12:16)
[2016-09-22 07:11] LABS: Magnesium 1.6 mg/dL (1.6-2.3)
[2016-09-22] MEDS: IPRATROPIUM-ALBUTEROL 3 ML NEB INHALATION SCH ×2 (07:19→13:02)
[2016-09-22] MEDS ORDERED: PANTOPRAZOLE 40 MG TABLET PO SCH (07:30)
[2016-09-22 08:42] VITALS: TEMP 98.5
[2016-09-22] MEDS: PHENYTOIN SODIUM EXTENDED 100 MG CAP PO SCH ×2 (08:43→12:17)
[2016-09-22] MEDS ORDERED: Magnesium Replacement Protocol 1 EACH MISC MISCELLANE PRN (08:56)
[2016-09-22] MEDS ORDERED: ISOSORBIDE MONONITRATE ER 30 MG TAB.ER.24H PO SCH (09:00)
[2016-09-22] MEDS ORDERED: CHOLECALCIFEROL 1,000 UNIT TAB PO SCH (09:00)
[2016-09-22] MEDS ORDERED: MELOXICAM 7.5 MG TAB PO SCH (09:00)
[2016-09-22] MEDS ORDERED: NON-FORMULARY DRUG (Aspirin Ec 325 MG) PO SCH (09:00)
[2016-09-22] MEDS ORDERED: METHADONE 10 MG TAB PO SCH (09:00)
[2016-09-22] MEDS ORDERED: FINASTERIDE 5 MG TAB PO SCH (09:00)
[2016-09-22] MEDS ORDERED: ASPIRIN 325 MG TAB PO SCH (09:00)
[2016-09-22] MEDS ORDERED: B COMPLEX-VIT C-VIT E-ZINC 1 EACH TAB PO SCH (09:00)
[2016-09-22] MEDS ORDERED: FERROUS SULFATE 325 MG TAB PO SCH (09:00)
[2016-09-22] MEDS ORDERED: CYANOCOBALAMIN 500 MCG TAB PO SCH (09:00)
[2016-09-22] MEDS ORDERED: FUROSEMIDE 40 MG TAB PO SCH (09:00)
[2016-09-22] MEDS ORDERED: POTASSIUM CHLORIDE ER 10 MEQ TAB.ER.PRT PO SCH (09:00)
--- NOTE | 2016-09-22 09:56 | P.PN ---
Subjective Principal diagnosis: Atypical chest pain This is a 71-year-old gentleman with history of chronic pain, on methadone, who presented to the hospital with symptoms of atypical chest discomfort with some fluttering in his chest. Patient presented with similar symptoms in July of this year at which time a dobutamine echocardiographic study was performed which was negative for any reversible ischemia. On this admission, his enzymes have been negative 3. EKG did not reveal any significant changes. At the time of my examination this morning he denied any further chest discomfort. Objective - Vital Signs Vital signs: Vital Signs Temp 98.5 F 09/22/16 08:40 Pulse 87 09/22/16 08:40 Resp 18 09/22/16 08:40 BP 180/81 09/22/16 08:40 Pulse Ox 92 L 09/22/16 08:40 Intake & Output 09/21/16 09/22/16 09/22/16 18:59 06:59 18:59 Intake Total 0 220 Balance 0 220 Weight 116.5 kg Intake: IV 0 NS 0 Oral 220 Other: Voiding Method Toilet Toilet # Voids 1 - Exam PHYSICAL EXAMINATION: HEENT: Head is atraumatic, normocephalic. Pupils equal, round. Neck is supple. There is no elevated jugular venous pressure. HEART EXAMINATION: Heart S1, S2 normal. No murmur or gallop heard. CHEST EXAMINATION: Lungs are clear to auscultation and precussion. No chest wall tenderness is noted on palpation or with deep breathing. ABDOMEN: Soft, nontender. Bowel sounds are heard. No organomegaly noted. EXTREMITIES: 2+ peripheral pulses with no evidence of peripheral edema and no calf tenderness noted. NEUROLOGIC patient is awake, alert and oriented -3. . - Labs CBC & Chem 7: 09/21/16 09:25 09/21/16 09:25 Labs: Abnormal Lab Results - Last 24 Hours (Table) 09/21/16 09/21/16 09/21/16 Range/Units 15:28 16:50 21:38 POC Glucose (mg/dL) 109 H (75-99) mg/dL Total Creatine Kinase 32 L 32 L (55-170) U/L Assessment and Plan (1) Atypical chest pain Status: Acute (2) HTN (hypertension) Status: Acute (3) COPD (chronic obstructive pulmonary disease) Status: Acute (4) TIA (transient ischemic attack) Status: Acute (5) Chronic pain Status: Acute (6) COPD (chronic obstructive pulmonary disease) Status: Acute (7) Diabetes Status: Acute (8) Sleep apnea Status: Acute (9) Anxiety Status: Acute Plan: From cardiology's perspective, patient may be able to be discharged home once cleared by the primary. He has been recommended to follow-up with his primary care doctor at the [place]. DNP note has been reviewed, I agree with a documented findings and plan of care. Patient was seen and examined.
--- NOTE | 2016-09-22 10:26 | HP ---
DATE OF ADMISSION: CHIEF COMPLAINT: Chest pain and dizziness. HISTORY OF PRESENT ILLNESS: Mr. Sánchez is a 71-year-old male with a known history of coronary artery disease with recent negative stress test/dobutamine echo and chronic pain on methadone 10 mg q.i.d., obstructive sleep apnea, COPD and multiple other medical problems, who came to the hospital with complaints of dizziness and was also found to have low blood pressure when he checked at home. It was 80/90 when he checked at home. His chest discomfort is vague, mainly retrosternal and no radiation, no associated nausea or vomiting. Patient felt dizziness. No diaphoresis. Patient came to the hospital for further elevation. Patient usually follows with [facility]. Patient did have eye injury while he was in the service. Currently, patient is chest pain free. Denied any fever or chills. No recent illnesses. No sick contacts at home. No recent travel. Serial EKGs and troponins have been negative. REVIEW OF SYSTEMS: CONSTITUTIONAL: No fever. No chills. No weakness or malaise. RESPIRATORY: No cough or sputum production. CARDIOVASCULAR: No chest pain now. No short of breath. No leg swelling. ABDOMEN: No nausea or vomiting, abdominal pain. GENITOURINARY: Negative. ENDOCRINE: Negative. PSYCHIATRIC: Anxious. SKIN: Negative. MUSCULOSKELETAL: Negative. All other fourteen-point review of systems negative except as above. PAST MEDICAL HISTORY: Asthma/COPD, coronary artery disease, congestive heart failure, cerebrovascular accident/transient ischemic attack history. No residual weakness. Diabetes mellitus, insulin-dependent type 2. Eye disorder, GERD, memory problems with history of head injury, history of ulcer, history of myocardial infarction x2, obstructive sleep apnea on CPAP, seizure disorder, cataracts, history of liver cirrhosis, diabetic neuropathy bilateral feet, chronic back pain and cervical pain. PAST SURGICAL HISTORY: Cardiac catheterization, hernia repair, orthopedic surgery, tonsillectomy, EGD, colonoscopy, right great toe joint surgery, right shoulder rotator cuff repair, right cataract surgery bilateral inguinal hernia repair and hydrocele repair. PSYCHOSOCIAL HISTORY: None. SOCIAL HISTORY: Patient has his son and his son's family living with him. Uses a cane to ambulate. The patient is a former smoker, quit smoking approximately 50 years ago. Smoked in the a very short time and little amount. FAMILY HISTORY: Mother had liver disease and pneumonia. Alcoholism. Father had lung cancer with metastasis to brain. HOME MEDICATIONS: 1. Artificial tears. 2. Aspirin. 3. Vitamin D3. 4. Cardizem CD. 5. Feosol. 6. Proscar. 7. Lasix. 8. Imdur. 9. Cozaar. 10. Meloxicam. 11. Methadone. 12. Protonix. 13. Dilantin. 14. Potassium chloride. 15. Combivent. 16. Vitamin B12. 17. Vitamin B complex. ALLERGIES: METHYLPREDNISONE ACETATE, DEPO-MEDROL, KEFLEX, GABAPENTIN, GOLYTELY, LYRICA, SODIUM BICARBONATE, SODIUM CHLORIDE, SODIUM SULFATE, SODIUM ( ). PHYSICAL EXAMINATION: A 71-year-old male lying in the bed, awake, alert, oriented x3. Appears to be in no apparent distress. VITALS: Blood pressure is 150/67, pulse is 68, respirations 18, temperature afebrile, pulse ox 94% on room air. HEENT: Atraumatic, normocephalic. Extraocular movement intact. No pallor, no icterus. Neck is supple. No JVD. CVS: S1, S2 heard. No murmurs, no gallop. LUNGS: Bilateral air entry present. No wheezing. No crackles. ABDOMEN: Soft, nontender. Bowel sounds are present. NIBBLER OPERATOR: Awake, alert, oriented x3 anxious. No focal deficit. EXTREMITIES: No edema. Pulses palpable bilaterally. No clubbing or cyanosis. PSYCHIATRIC: Cooperative. LABORATORY DATA: WBC 8.1, hemoglobin 14.3, platelets 124, INR 1.2. Sodium 142, potassium 4.0, chloride 104, bicarb 24, BUN 22, creatinine 1.05, blood sugar 102, magnesium 1.4. Troponin x2 negative. Albumin 3.8. EKG normal sinus rhythm. Chest x-ray: COPD and cardiomegaly. Suspected subsegmental atelectasis or infiltrate in the lateral view like within the lingular segment left upper lobe. IMPRESSION: 1. Atypical chest pain with recent negative Dobutamine echocardiogram. Will rule out acute coronary syndrome. 2. Hypomagnesemia. 3. Hypotension and dizziness. No complaints now. Blood pressure is stable now, improved. 4. Chronic pain syndrome on methadone. 5. History of coronary artery disease. 6. Chronic obstructive pulmonary disease/asthma, not in exacerbation. 7. History of cerebrovascular accident/transient ischemic attack. No residual weakness. 8. Diabetes type 2, insulin-dependent. 9. Hearing disorder. 10. Gastroesophageal reflux disease. 11. Hyperlipidemia. 12. Hypertension. 13. Liver cirrhosis. 14. Memory impairment. 15. History of myocardial infarction. 16. Prostate disorder. 17. Obstructive sleep apnea on CPAP at home. 18. Hypothyroidism. 19. Diabetic neuropathy. 20. History of ulcer. 21. Deep venous thrombosis prophylaxis. DISCUSSION AND PLAN: A 71-year-old male admitted to the hospital with chest pain, rule out ACS. Initially EKGs and troponins are negative. Cardiology saw the patient and will continue the home medications. Follow troponin trend. Further recommendations based on clinical course.
[2016-09-22] MEDS: MAGNESIUM SULFATE-D5W PMX 1 GM in DEXTROSE/WATER 1 100ML.BAG IVPB SCH ×2 (10:39→11:34)
[2016-09-22 11:28] VITALS: BMI 33.8
[2016-09-22] MEDS ORDERED: LOSARTAN 50 MG TAB PO SCH (12:00)
[2016-09-22 12:02] LABS: Glucose,Whole Blood 108 mg/dL (75-99)
[2016-09-22 12:15] VITALS: RESP 16
[2016-09-22 15:02] VITALS: BP 133/72; PULSE 80
--- NOTE | 2016-09-24 07:58 | DS ---
DATE OF ADMISSION: 09/21/2016 DATE OF DISCHARGE: 09/22/2016 DISCHARGE DIAGNOSES: 1. Atypical chest pain, ruled out acute coronary syndrome, recent negative dobutamine stress echo, troponins are negative at this time. 2. Hypomagnesemia. 3. Hypotension, dizziness. Blood pressure has been stable while in the hospital. No complaints now. 4. Chronic pain syndrome on methadone q.i.d.10 mg. 5. History of coronary artery disease. 6. Obstructive sleep apnea. 7. Chronic obstructive pulmonary disease not in exacerbation. 8. History of cerebrovascular accident/transient ischemic attack. No residual weakness. 9. Type 2 diabetes mellitus. 10. Hearing disorder. 11. Gastroesophageal reflux disease. 12. Hyperlipidemia. 13. Hypertension. 14. Liver cirrhosis. 15. Memory impairment. 16. History of myocardial infarction. 17. History of prostate disorder. 18. Obstructive sleep apnea on CPAP. 19. Hypothyroidism. 20. Diabetic neuropathy. 21. History of gastric ulcer. 22. Deep venous thrombosis prophylaxis. HOSPITAL COURSE: Mr. Sánchez is a 71 -year-old male with known history of multiple medical problems and comorbid conditions admitted to the hospital with complaints of dizziness and hypotension and chest pressure. The patient says that he was having low blood pressure with ( ) around 80. While in the hospital, the patient's blood pressure has been stable. The patient was monitored and ruled out acute coronary syndrome. Serial EKGs and troponins have been negative. Had a recent dobutamine stress echo done. Dobutamine stress test was done which was negative as well. The patient was seen by cardiology and recommended no further work-up and troponins are negative and troponins have been negative and blood pressure has been stable and the patient stable to be discharged home and the patient will follow at the [facility] and is on chronic pain management with methadone. Otherwise, patient is asymptomatic and is stable for discharge home today. DISCHARGE PHYSICAL EXAMINATION: A 71-year-old male lying in bed comfortably, awake, alert and oriented times three, appears to be in no apparent distress. VITALS: Blood pressure is 147/73, pulse is 80, respiration 16, temperature afebrile, pulse ox 95% on room air. Orthostatic and negative. Discharge physical examination done. LABORATORY DATA: Reviewed. Discharge medications include: 1. Artificial tears 2 drops 4, in both eyes p.r.n. t.i.d. 2. Aspirin 325 milligrams p.o. daily. 3. Vitamin D3 1000 units p.o. daily. 4. Cardizem CD 240 mg p.o. q.h.s. 5. Ferrous sulfate 320 mg p.o. daily. 6. Proscar 5 mg p.o. daily. 7. Lasix 40 mg p.o. b.i.d. 8. Lantus 45 units subcu at bedtime. 9. Imdur 30 mg p.o. b.i.d. 10. Losartan 100 mg p.o. daily. 11. Meloxicam 30 mg p.o. daily. 12. Methadone 10 mg p.o. q.i.d. 13. Protonix 40 mg p.o. daily. 14. Dilantin 100 mg q.i.d. 15. Potassium chloride 20 meq p.o. daily. 16. Combivent 1 puff inhalation t.i.d. 17. Cyanocobalamin. 18. Vitamin B12 2000 mcg p.o. daily. 19. Vitamin B complex 1 capsule daily. 20. Nitroglycerin 0.4 mg sublingual q.5 minutes p.r.n. for chest pain. Patient will be discharged home in stable condition. Activity as tolerated. Heart healthy diet. Follow-up with the primary care physician. Follow-up with physician at the [facility]. Home with self-care. Cardiac diet. Time taken more than 35 minutes including ( ) and coordinating care.
== END 2016-09-22 15:54 | disposition home or self-care (01) | DRG 313 ==
LOC: EC 09:02 → 6SEL 10:45
PROVIDERS: ADMIT Hospitalist; ATTEND Hospitalist
DX: R07.89 Other chest pain (principal); I25.2 Old myocardial infarction; I95.9 Hypotension, unspecified; I11.0 Hypertensive heart disease with heart failure; E11.40 Type 2 diabetes mellitus with diabetic neuropathy, unspecified; I50.9 Heart failure, unspecified; E83.42 Hypomagnesemia; G40.909 Epilepsy, unspecified, not intractable, without status epilepticus; E03.9 Hypothyroidism, unspecified; E78.5 Hyperlipidemia, unspecified; F41.9 Anxiety disorder, unspecified; G47.33 Obstructive sleep apnea (adult) (pediatric); G89.4 Chronic pain syndrome; H91.90 Unspecified hearing loss, unspecified ear; J44.9 Chronic obstructive pulmonary disease, unspecified; J45.909 Unspecified asthma, uncomplicated; K21.9 Gastro-esophageal reflux disease without esophagitis; K74.60 Unspecified cirrhosis of liver; N42.9 Disorder of prostate, unspecified; R01.1 Cardiac murmur, unspecified; M54.2 Cervicalgia; M54.9 Dorsalgia, unspecified; I25.10 Atherosclerotic heart disease of native coronary artery without angina pectoris; R41.3 Other amnesia; Z79.4 Long term (current) use of insulin; Z79.891 Long term (current) use of opiate analgesic; Z79.899 Other long term (current) drug therapy; Z79.82 Long term (current) use of aspirin; Z88.1 Allergy status to other antibiotic agents; Z88.8 Allergy status to other drugs, medicaments and biological substances; Z87.891 Personal history of nicotine dependence
CPT/HCPCS: 36415; 71020; 80053; 80061; 82550; 82553; 83735; 83880; 84484; 85025; 85610; 85730; 93005; 94640; 96365; 96366; 99291

== ENCOUNTER → 2016-10-12 | Outpatient (CLI) | payer OTHER ==
--- NOTE | 2016-10-13 08:09 | CT ---
EXAMINATION TYPE: CT chest wo con DATE OF EXAM: 10/12/2016 6:39 PM COMPARISON: NONE HISTORY: cough and history of COPD CT DLP: 516.3 mGycm, Automated exposure control for dose reduction was used. CONTRAST: None TECHNIQUE: Axial images were obtained at 5 mm thick sections. Reconstructed images are reviewed on [employer] computer in the coronal plane. FINDINGS: Portion of the thyroid visualized is normal. No suspicious lung nodules or focal infiltrates are present. Emphysematous changes are present. Trent es compatible some pulmonary fibrosis is present punctate densities at the posterior lateral left olivia g base measures 0.4 cm and appears to be a calcified granuloma. There is been progression of the pulm onary fibrosis. No enlarged mediastinal or hilar adenopathy is evident. The ascending aorta diameter at the level o f the main pulmonary artery is 3.8 cm. The main pulmonary artery diameter at the bifurcation is 3.1 cm. Coronary artery calcifications present. Limited CT sections are obtained through the upper abdomen. Abdomen is essentially unremarkable. IMPRESSIONS: 1. Pulmonary fibrosis. 2. COPD
== END | disposition home or self-care (01) ==
LOC: RADCTMAIN 17:59
PROVIDERS: ATTEND Internal Medicine
DX: J84.10 Pulmonary fibrosis, unspecified (principal); J44.9 Chronic obstructive pulmonary disease, unspecified
CPT/HCPCS: 71250

== ENCOUNTER 2016-10-19 22:35 | Emergency (ER) | payer MEDICARE, BC ==
[2016-10-19 22:55] VITALS: TEMP 98.3
[2016-10-20] MEDS ORDERED: KETOROLAC 30 MG/ML 1 ML VIAL IVP STA (00:23)
[2016-10-20 00:49] LABS: Basophils % (A) 0 %; Eosinophils # (A) 0.1 k/uL (0-0.7); Eosinophils % (A) 2 %; HCT 42.2 % (39.0-53.0); HDW 2.64; HGB 14.3 gm/dL (13.0-17.5); Luc # (Auto) 0.13; Luc % (Auto) 2; Lymphocytes # (A) 1.6 k/uL (1.0-4.8); Lymphocytes % (A) 21 %; MCH 31.1 pg (25.0-35.0); MCHC 33.9 g/dL (31.0-37.0); MCV 91.7 fL (80.0-100.0); Mean Platelet Volume 6.9; Monocytes # (A) 0.4 k/uL (0-1.0); Monocytes % (A) 6 %; Neutrophils # (A) 5.4 k/uL (1.3-7.7); Neutrophils % (A) 70 %; RDW 15.3 % (11.5-15.5); WBC 7.8 k/uL (3.8-10.6); WBC (Perox) 7.65
[2016-10-20 00:59] LABS: ALT 42 U/L (21-72); AST 35 U/L (17-59); Alkaline Phosphatase 71 U/L (38-126); Amylase 55 U/L (30-110); Anion Gap 9 mmol/L; Blood Urea Nitrogen 17 mg/dL (9-20); Calcium 9.3 mg/dL (8.4-10.2); Carbon Dioxide 25 mmol/L (22-30); Chloride 109 mmol/L (98-107); Glucose 113 mg/dL (74-99); Non-African American GFR(MDRD) >60 (>60 ml/min/1.73 sqM); Potassium 3.8 mmol/L (3.5-5.1); Sodium 143 mmol/L (137-145); Total Bilirubin 0.6 mg/dL (0.2-1.3); Total Protein 7.2 g/dL (6.3-8.2)
--- NOTE | 2016-10-20 01:09 | CT ---
EXAM: CT Abdomen and Pelvis Without Intravenous Contrast. CLINICAL HISTORY: Reason: Pain TECHNIQUE: Axial computed tomography images of the abdomen and pelvis without intravenous contrast. CTDI is 22.4 mGy and DLP is 1376.4 mGy-cm This CT exam was performed using one or more of the following dose reduction techniques: automated exposure control, adjustment of the mA and/or kV according to patient size, and/or use of iterative reconstruction technique. COMPARISON: 04/22/16 FINDINGS: Lower thorax: No acute findings. ABDOMEN: Liver: Cirrhotic appearance of the liver. Gallbladder and bile ducts: Tiny calcified gallstone is seen within the inferior gallbladder on series 3, image 65. No ductal dilation. Pancreas: Unremarkable. No ductal dilation. Spleen: Mild splenomegaly, unchanged. Adrenals: Unremarkable. No mass. Kidneys and ureters: Unremarkable. No obstructing stones. No hydronephrosis. PELVIS: Bladder: Unremarkable. No stones. Reproductive: Unremarkable as visualized. Appendix: No findings to suggest acute appendicitis. ABDOMEN + PELVIS: Stomach and bowel: Mild sigmoid diverticulosis, without diverticulitis. No obstruction. Peritoneum: Unremarkable. No significant fluid collection. No free air. Abdominal/pelvic wall: Small fat-containing umbilical hernia. Lymph nodes: Unremarkable. No enlarged lymph nodes. Vasculature: Unremarkable. No aortic aneurysm. Bones: No acute fracture. IMPRESSION: 1. Hepatic cirrhosis. 2. Mild splenomegaly, unchanged. 3. Cholelithiasis, without findings of acute cholecystitis.
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
[2016-10-20 02:58] VITALS: BP 151/68; PULSE 89; RESP 16
== END 2016-10-20 02:58 | disposition home or self-care (01) ==
LOC: EC 22:35
DX: S39.011A Strain of muscle, fascia and tendon of abdomen, initial encounter (principal); K74.60 Unspecified cirrhosis of liver; R16.1 Splenomegaly, not elsewhere classified; K80.20 Calculus of gallbladder without cholecystitis without obstruction; R94.31 Abnormal electrocardiogram [ECG] [EKG]; J45.909 Unspecified asthma, uncomplicated; I25.10 Atherosclerotic heart disease of native coronary artery without angina pectoris; I50.9 Heart failure, unspecified; J44.9 Chronic obstructive pulmonary disease, unspecified; E11.9 Type 2 diabetes mellitus without complications; K21.9 Gastro-esophageal reflux disease without esophagitis; E78.5 Hyperlipidemia, unspecified; I11.0 Hypertensive heart disease with heart failure; I25.2 Old myocardial infarction; G40.909 Epilepsy, unspecified, not intractable, without status epilepticus; E07.9 Disorder of thyroid, unspecified; G47.30 Sleep apnea, unspecified; D64.9 Anemia, unspecified; Z86.73 Personal history of transient ischemic attack (TIA), and cerebral infarction without residual deficits; Z95.5 Presence of coronary angioplasty implant and graft; Z88.1 Allergy status to other antibiotic agents; Z88.8 Allergy status to other drugs, medicaments and biological substances; Z79.4 Long term (current) use of insulin; Z79.51 Long term (current) use of inhaled steroids; Z79.82 Long term (current) use of aspirin; Z79.899 Other long term (current) drug therapy; Z87.891 Personal history of nicotine dependence; X58.XXXA Exposure to other specified factors, initial encounter
CPT/HCPCS: 99285 ×2; 96374 ×2; 36415; 93005; 80053; 82150; 83690; 85025; 74176; J1885; 99283

== ENCOUNTER 2016-10-20 19:54 | Emergency (ER) | payer MEDICARE, BC ==
[2016-10-20 20:00] VITALS: TEMP 98.1
[2016-10-20] MEDS ORDERED: SODIUM CHLORIDE 0.9% 500 ML IV STA (20:23)
[2016-10-20] MEDS ORDERED: LORazepam 2 MG/ML SYRINGE IV STA (20:23)
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
[2016-10-20 21:00] VITALS: BP 158/67; PULSE 100; RESP 16
== END 2016-10-20 21:00 | disposition home or self-care (01) ==
LOC: EC 19:54
DX: F41.9 Anxiety disorder, unspecified (principal); J45.909 Unspecified asthma, uncomplicated; I50.9 Heart failure, unspecified; J44.9 Chronic obstructive pulmonary disease, unspecified; I25.10 Atherosclerotic heart disease of native coronary artery without angina pectoris; E11.9 Type 2 diabetes mellitus without complications; K21.9 Gastro-esophageal reflux disease without esophagitis; I10 Essential (primary) hypertension; I25.2 Old myocardial infarction; D64.9 Anemia, unspecified; G40.909 Epilepsy, unspecified, not intractable, without status epilepticus; Z79.82 Long term (current) use of aspirin; Z87.891 Personal history of nicotine dependence; Z79.899 Other long term (current) drug therapy; Z79.4 Long term (current) use of insulin; Z88.1 Allergy status to other antibiotic agents; Z88.8 Allergy status to other drugs, medicaments and biological substances; Z87.438 Personal history of other diseases of male genital organs; Z86.69 Personal history of other diseases of the nervous system and sense organs; Z95.818 Presence of other cardiac implants and grafts
CPT/HCPCS: 99283; 96374; J2060

== ENCOUNTER 2016-12-11 17:22 | Inpatient (IN) | payer MEDICARE, BC ==
[2016-12-11 17:43] LABS: Glucose,Whole Blood 114 mg/dL (75-99)
--- NOTE | 2016-12-11 18:05 | ED ---
General Adult HPI - General Chief complaint: Shortness of Breath Stated complaint: LOKESH Time Seen by Provider: 12/11/16 18:01 Source: patient, family, RN notes reviewed, old records reviewed Mode of arrival: wheelchair Limitations: no limitations - History of Present Illness Initial comments: This is a 71 male to the ED with SOB, R side facial droop and neuro symptoms this all lasted for about past week. Possibly since . Is accompanied by blurred vision slurred speech and inability to close both eyes. Patient also per family is weak on his feet, unable to walk straight, dizzy. Patient himself denies any headache, denies any other complaints or patient's multiple medical coronary disease and multiple cardiac risk factors -: week(s) (1) Location: face Radiation: non-radiation Severity scale (1-10): 3 Improves with: none Worsens with: none Associated Symptoms: confusion - Related Data Home Medications Medication Instructions Recorded Confirmed Artificial Tears-Hypromellose 2 drops BOTH EYES TID PRN 04/14/15 12/11/16 [Artificial Tear Drops] Aspirin EC [Ecotrin] 325 mg PO DAILY 04/14/15 12/11/16 Cholecalciferol [Vitamin D3] 1,000 unit PO DAILY 04/14/15 12/11/16 Diltiazem Cd [Cardizem CD] 240 mg PO HS 04/14/15 12/11/16 Finasteride [Proscar] 5 mg PO DAILY 04/14/15 12/11/16 Furosemide [Lasix] 40 mg PO BID 04/14/15 12/11/16 Insulin Glargine [Lantus] 45 unit SQ HS 04/14/15 12/11/16 Isosorbide Mononitrate ER [Imdur] 30 mg PO DAILY 04/14/15 12/11/16 Losartan Potassium [Cozaar] 100 mg PO DAILY 04/14/15 12/11/16 Meloxicam 15 mg PO DAILY 04/14/15 12/11/16 Pantoprazole Sodium 40 mg PO DAILY 04/14/15 12/11/16 Phenytoin Sodium Extended 100 mg PO QID 04/14/15 12/11/16 [Dilantin] Potassium Chloride [Klor-Con 10] 10 meq PO DAILY 04/14/15 12/11/16 Ipratropium/Albuterol Sulfate 1 puff INHALATION RT-TID PRN 01/01/16 12/11/16 [Combivent Respimat Inhaler] Cyanocobalamin (Vitamin B-12) 2,000 mcg PO DAILY 07/24/16 12/11/16 [Vitamin B-12] Vitamin B Complex 1 cap PO DAILY 07/24/16 12/11/16 Albuterol Sulfate [Proventil Hfa] 1 puff INHALATION RT-QID PRN 12/11/16 12/11/16 Hydrocodone/Acetaminophen [[place] 1 tab PO TID PRN 12/11/16 12/11/16 10-325 Tablet] Magnesium Oxide [Mag-Ox] 400 mg PO DAILY 12/11/16 12/11/16 Ubidecarenone [Co Q-10] 100 mg PO DAILY 12/11/16 12/11/16 Previous Rx's Medication Instructions Recorded Nitroglycerin Sl Tabs [Nitrostat] 0.4 mg SUBLINGUAL Q5M PRN #50 tab 09/22/16 Allergies Allergy/AdvReac Type Severity Reaction Status Date / Time methylprednisolone acetate Allergy Severe Anaphylaxis Verified 12/11/16 18:35 [From Depo-Medrol] cephalexin [From Keflex] Allergy Rash/Hives Verified 12/11/16 17:31 duloxetine [From Cymbalta] AdvReac Intense Verified 12/11/16 19:04 [place] gabapentin [From Neurontin] AdvReac Tremors Verified 12/11/16 18:36 polyethylene glycol AdvReac Confusion Verified 12/11/16 18:35 [From Golytely] polyethylene glycol 3350 AdvReac Confusion Verified 12/11/16 18:35 [From Golytely] potassium chloride AdvReac Confusion Verified 12/11/16 18:35 [From Golytely] pregabalin [From Lyrica] AdvReac Intense Verified 12/11/16 18:36 [place] sodium [From Golytely] AdvReac Confusion Verified 12/11/16 18:35 sodium bicarbonate AdvReac Confusion Verified 12/11/16 18:35 [From Golytely] sodium chloride AdvReac Confusion Verified 12/11/16 18:35 [From Golytely] sodium sulfate AdvReac Confusion Verified 12/11/16 18:35 [From Golytely] sodium sulfate anhydrous AdvReac Confusion Verified 12/11/16 18:35 [From [employer]] Review of Systems ROS Statement: Those systems with pertinent positive or pertinent negative responses have been documented in the HPI. ROS Other: All systems not noted in ROS Statement are negative. Past Medical History Past Medical History: Asthma, Coronary Artery Disease (CAD), Heart Failure, COPD , CVA/TIA, Diabetes Mellitus, Eye Disorder, GERD/Reflux, Hearing Disorder / Deafness, Hyperlipidemia, Hypertension, Liver Disease, Memory Impairment, Myocardial Infarction ([place]), Pneumonia, Prostate Disorder, Seizure Disorder, Sleep Apnea/CPAP/BIPAP, Thyroid Disorder Additional Past Medical History / Comment(s): Pt concerned over wt loss of 50# over past 2 months-states he has an apetite and is eating but losing wt, EYES "BURNED" IN SERVICE-(gas can blew up). HX [place] X2; POSS CVA. hx ulcer, "MEMORY PROB R/T HX head injury" NEUROPATHY AVA FEET, CHRONIC BACK PAIN, occasional cervical pain, no. cpap, ON O2 2L NC AT Night & PRN. DIFF SWALLOWING, constipation, liver-cirrhosis, anemia, enlarged spleen, heart murmur, L cataract , seizures with last seizure-pt thinks last seizure July 2016-states he has "mini-mals-I go out and can't wake up". Last Myocardial Infarction Date:: 1989 History of Any Multi-Drug Resistant Organisms: None Reported Past Surgical History: Heart Catheterization, Hernia Repair, Orthopedic Surgery , Tonsillectomy Additional Past Surgical History / Comment(s): 08/09/16 EGD. Other surgical hx: past EGD/colonoscopy, RT GREAT TOE JOINT, RT SHOULDER rotator cuff repair. rt cataract, bilateral inguinal hernia repairs & hydrocele repair Past Anesthesia/Blood Transfusion Reactions: Motion Sickness, Postoperative Nausea & Vomiting (PONV) Additional Past Anesthesia/Blood Transfusion Reaction / Comment(s): no hx blood transfusion Past Psychological History: No Psychological Hx Reported, Depression Additional Psychological History / Comment(s): Pt has his son and his son's family living with him. They should be moving out soon. He has no home care. He uses a cane to ambulate or a walker or scooter. He drives. 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 Smoking Status: Former smoker Past Alcohol Use History: None Reported Additional Past Alcohol Use History / Comment(s): quit smoking approx 50 yrs ago ,smoked in -very short time and little amount Past Drug Use History: None Reported - Past Family History Mother Family Medical History: Liver Disease, Pneumonia Additional Family Medical History / Comment(s): alcoholism Father Family Medical History: Cancer Additional Family Medical History / Comment(s): Father had lung cancer with mets to brain. He was a nonsmoker but his spouse smoked in the house. General Exam - General Exam Comments Initial Comments: Dysphagia Limitations: no limitations General appearance: alert, in no apparent distress Head exam: Present: atraumatic, normocephalic, normal inspection Eye exam: Present: normal appearance, PERRL, EOMI. Absent: scleral icterus, conjunctival injection, periorbital swelling ENT exam: Present: normal exam, mucous membranes moist Neck exam: Present: normal inspection. Absent: tenderness, meningismus, lymphadenopathy Respiratory exam: Present: normal lung sounds bilaterally, wheezes, decreased breath sounds, prolonged expiratory. Absent: respiratory distress, rales, rhonchi, stridor Cardiovascular Exam: Present: regular rate, normal rhythm, normal heart sounds. Absent: systolic murmur, diastolic murmur, rubs, gallop, clicks GI/Abdominal exam: Present: soft, normal bowel sounds. Absent: distended, tenderness, guarding, rebound, rigid Extremities exam: Present: normal inspection, full ROM, normal capillary refill. Absent: tenderness, pedal edema, joint swelling, calf tenderness Back exam: Present: normal inspection Neurological exam: Present: alert, oriented X3, CN II-XII intact Psychiatric exam: Present: normal affect, normal mood Skin exam: Present: warm, dry, intact, normal color. 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 Process of the think this is new or but again don't know when EKG Findings - EKG Comments: EKG Findings:: EKG shows normal sinus rhythm, rate of 69, qrs of 94, qtc 409 Medical Decision Making - Medical Decision Making 71 year with new onset neurological changes, vision changes, speech changes symptoms since worsening, no known significant sudden onset patient 's continue with slurred speech and inability to close eyes and blurry vision at this time. Patient will be admitted with neurological evaluation, CT CTA is negative for significant acute disease here in the emergency room, patient will have neurological evaluation, not candidate for TPA secondary to nonacute onset her unknown time of onset - Lab Data Result diagrams: 12/11/16 17:50 12/11/16 17:50 Lab Results 12/11/16 12/11/16 12/11/16 Range/Units 17:40 17:50 17:50 WBC 8.9 (3.8-10.6) k/uL RBC 4.53 (4.30-5.90) m/uL Hgb 14.3 (13.0-17.5) gm/dL Hct 42.3 (39.0-53.0) % MCV 93.2 (80.0-100.0) fL MCH 31.5 (25.0-35.0) pg MCHC 33.7 (31.0-37.0) g/dL RDW 14.0 (11.5-15.5) % Plt Count 115 L (150-450) k/uL Neutrophils % 71 % Lymphocytes % 19 % Monocytes % 6 % Eosinophils % 1 % Basophils % 1 % Neutrophils # 6.3 (1.3-7.7) k/uL Lymphocytes # 1.7 (1.0-4.8) k/uL Monocytes # 0.5 (0-1.0) k/uL Eosinophils # 0.1 (0-0.7) k/uL Basophils # 0.1 (0-0.2) k/uL PT (9.0-12.0) sec INR (<1.1) APTT (22.0-30.0) sec Sodium (137-145) mmol/L Potassium (3.5-5.1) mmol/L Chloride (98-107) mmol/L Carbon Dioxide (22-30) mmol/L Anion Gap mmol/L BUN (9-20) mg/dL Creatinine (0.66-1.25) mg/dL Est GFR (MDRD) Af Amer (>60 ml/min/1.73 sqM) Est GFR (MDRD) Non-Af (>60 ml/min/1.73 sqM) Glucose (74-99) mg/dL POC Glucose (mg/dL) 114 H (75-99) mg/dL POC Glu Food Writer Eugenia Braswell Calcium (8.4-10.2) mg/dL Phosphorus (2.5-4.5) mg/dL Magnesium (1.6-2.3) mg/dL Total Bilirubin (0.2-1.3) mg/dL AST (17-59) U/L ALT (21-72) U/L Alkaline Phosphatase (38-126) U/L Total Creatine Kinase 35 L (55-170) U/L CK-MB (CK-2) 0.6 (0.0-2.4) ng/mL CK-MB (CK-2) Rel Index 1.7 Troponin I <0.012 (0.000-0.034) ng/mL Total Protein (6.3-8.2) g/dL Albumin (3.5-5.0) g/dL Urine Color Urine Appearance (Clear) Urine pH (5.0-8.0) Ur Specific [place] (1.001-1.035) Urine Protein (Negative) Urine Glucose (UA) (Negative) Urine Ketones (Negative) Urine Blood (Negative) Urine Nitrite (Negative) Urine Bilirubin (Negative) Urine Urobilinogen (<2.0) mg/dL Ur Leukocyte Esterase (Negative) 12/11/16 12/11/16 12/11/16 Range/Units 17:50 17:50 18:20 WBC (3.8-10.6) k/uL RBC (4.30-5.90) m/uL Hgb (13.0-17.5) gm/dL Hct (39.0-53.0) % MCV (80.0-100.0) fL MCH (25.0-35.0) pg MCHC (31.0-37.0) g/dL RDW (11.5-15.5) % Plt Count (150-450) k/uL Neutrophils % % Lymphocytes % % Monocytes % % Eosinophils % % Basophils % % Neutrophils # (1.3-7.7) k/uL Lymphocytes # (1.0-4.8) k/uL Monocytes # (0-1.0) k/uL Eosinophils # (0-0.7) k/uL Basophils # (0-0.2) k/uL PT 11.4 (9.0-12.0) sec INR 1.1 (<1.1) APTT 24.6 (22.0-30.0) sec Sodium 141 (137-145) mmol/L Potassium 4.6 (3.5-5.1) mmol/L Chloride 107 (98-107) mmol/L Carbon Dioxide 25 (22-30) mmol/L Anion Gap 9 mmol/L BUN 23 H (9-20) mg/dL Creatinine 0.77 (0.66-1.25) mg/dL Est GFR (MDRD) Af Amer >60 (>60 ml/min/1.73 sqM) Est GFR (MDRD) Non-Af >60 (>60 ml/min/1.73 sqM) Glucose 104 H (74-99) mg/dL POC Glucose (mg/dL) (75-99) mg/dL POC Glu Food Writer ID Calcium 9.5 (8.4-10.2) mg/dL Phosphorus 3.4 (2.5-4.5) mg/dL Magnesium 1.4 L (1.6-2.3) mg/dL Total Bilirubin 0.9 (0.2-1.3) mg/dL AST 29 (17-59) U/L ALT 28 (21-72) U/L Alkaline Phosphatase 75 (38-126) U/L Total Creatine Kinase (55-170) U/L CK-MB (CK-2) (0.0-2.4) ng/mL CK-MB (CK-2) Rel Index Troponin I (0.000-0.034) ng/mL Total Protein 7.6 (6.3-8.2) g/dL Albumin 3.9 (3.5-5.0) g/dL Urine Color Light Yellow Urine Appearance Clear (Clear) Urine pH 6.5 (5.0-8.0) Ur Specific [place] 1.006 (1.001-1.035) Urine Protein Negative (Negative) Urine Glucose (UA) Negative (Negative) Urine Ketones Negative (Negative) Urine Blood Negative (Negative) Urine Nitrite Negative (Negative) Urine Bilirubin Negative (Negative) Urine Urobilinogen <2.0 (<2.0) mg/dL Ur Leukocyte Esterase Negative (Negative) Disposition Clinical Impression: CVA (cerebral vascular accident), Dysphasia Disposition: ADMITTED IP TO THIS HOSP Condition: Fair
[2016-12-11] MEDS ORDERED: SODIUM CHLORIDE 0.9% 1,000 ML IV STA (18:16)
[2016-12-11 18:24] LABS: Basophils # (A) 0.1 k/uL (0-0.2); Basophils % (A) 1 %; CH 32.3; CHCM 34.7; Eosinophils # (A) 0.1 k/uL (0-0.7); Eosinophils % (A) 1 %; HCT 42.3 % (39.0-53.0); HDW 2.63; HGB 14.3 gm/dL (13.0-17.5); Luc # (Auto) 0.16; Luc % (Auto) 2; Lymphocytes # (A) 1.7 k/uL (1.0-4.8); Lymphocytes % (A) 19 %; MCH 31.5 pg (25.0-35.0); MCHC 33.7 g/dL (31.0-37.0); MCV 93.2 fL (80.0-100.0); Monocytes # (A) 0.5 k/uL (0-1.0); Monocytes % (A) 6 %; Neutrophils # (A) 6.3 k/uL (1.3-7.7); Neutrophils % (A) 71 %; RBC 4.53 m/uL (4.30-5.90); WBC 8.9 k/uL (3.8-10.6); WBC (Perox) 8.44
--- NOTE | 2016-12-11 18:37 | CT ---
EXAMINATION TYPE: CT brain wo con DATE OF EXAM: 12/11/2016 COMPARISON: 12/21/2011 HISTORY: RIGHT SIDE FACIAL DROOP AND SLURRED SPEECH. CT DLP: 1049 mGycm Automated exposure control for dose reduction was used. FINDINGS: There is mild cerebral cortical atrophy. There is some patchy hypodensity in the periventricular whit e matter. The calvarium is intact. IMPRESSION: Cerebral atrophy and chronic small vessel ischemia. No acute intracranial abnormality. There is some progression of the white matter changes compared to old exam.
[2016-12-11 18:40] LABS: Appearance,Urine Clear (Clear); Bilirubin,Urine Negative (Negative); Glucose,Urine (UA) Negative (Negative); Ketones,Urine Negative (Negative); Leukocyte Esterase,Urine Negative (Negative); Nitrite,Urine Negative (Negative); PH, Urine 6.5 (5.0-8.0); Protein,Urine Negative (Negative); Specific Gravity,Urine 1.006 (1.001-1.035); UA Billing (MACRO vs. MICRO) CHEM; Urobilinogen,Urine <2.0 mg/dL (<2.0)
[2016-12-11 18:41] LABS: ALT 28 U/L (21-72); AST 29 U/L (17-59); Alkaline Phosphatase 75 U/L (38-126); Anion Gap 9 mmol/L; Blood Urea Nitrogen 23 mg/dL (9-20); Calcium 9.5 mg/dL (8.4-10.2); Carbon Dioxide 25 mmol/L (22-30); Chloride 107 mmol/L (98-107); Creatine Kinase 35 U/L (55-170); Glucose 104 mg/dL (74-99); Magnesium 1.4 mg/dL (1.6-2.3); Non-African American GFR(MDRD) >60 (>60 ml/min/1.73 sqM); Phosphorous 3.4 mg/dL (2.5-4.5); Potassium 4.6 mmol/L (3.5-5.1); Sodium 141 mmol/L (137-145); Total Bilirubin 0.9 mg/dL (0.2-1.3); Total Protein 7.6 g/dL (6.3-8.2)
--- NOTE | 2016-12-11 18:48 | XR ---
EXAMINATION TYPE: XR chest 2V DATE OF EXAM: 12/11/2016 COMPARISON: 09/21/2016 HISTORY: Weakness TECHNIQUE: Frontal and lateral views of the chest are obtained. FINDINGS: There is some coarsening of interstitial pulmonary markings. There is no pleural effusion. There is a poor inspiration. IMPRESSION: Interstitial pulmonary infiltrates. Mild heart failure cannot be entirely excluded. Insp iration is worse than last exam.
[2016-12-11 18:52] LABS: Creatine Kinase MB 0.6 ng/mL (0.0-2.4); Troponin I <0.012 ng/mL (0.000-0.034)
[2016-12-11 18:56] LABS: INR 1.1 (<1.1); Partial Thromboplastin Time 24.6 sec (22.0-30.0); Prothrombin Time 11.4 sec (9.0-12.0)
[2016-12-11] MEDS ORDERED: RX INFO: IV CONTRAST WAS GIVEN 1 EACH MISC MISCELLANE PRN (19:04)
[2016-12-11] MEDS ORDERED: ASPIRIN 325 MG TAB PO STA (19:05)
--- NOTE | 2016-12-11 19:52 | CT ---
EXAMINATION TYPE: CT angio head neck DATE OF EXAM: 12/11/2016 7:42 PM COMPARISON: NONE HISTORY: Right side facial droop and slurred speech. CT DLP: 390.8 mGycm Automated exposure control for dose reduction was used. TECHNIQUE: Performed with IV Contrast, patient injected with 65 mL of Omnipaque 350. There are 3-D post processed images.. FINDINGS: There are some atherosclerotic calcifications at the aortic arch. 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 There is bilateral patency of the vertebral arteries. Left vertebral artery is larger than the right. The basilar artery fills mostly from the left side. There is a 1.5 cm low-density area in the right thyroid lobe. There is patency of the common internal and external carotid arteries. There is minimal calcification at the carotid artery bifurcations. There is patency of the anterior middle and posterior cerebral a rteries. There is normal contrast opacification of the venous sinuses. There is no sign of aneurysm o r neovascularity. I see no sign of hemodynamically significant stenosis. There is no mass effect. IMPRESSION: NORMAL CT ANGIOGRAM OF THE BRAIN. MINIMAL ATHEROSCLEROTIC CHANGES IN THE AORTIC ARCH AND CAROTID ARTERIES WITHOUT EVIDENCE OF HEMODYNAM ICALLY SIGNIFICANT STENOSIS. ABERRANT RIGHT SUBCLAVIAN ARTERY. SMALL HYPODENSE RIGHT THYROID LESION I S SOMEWHAT TRIANGULAR AND CONSISTENT WITH A CYST.
[2016-12-11 21:40] LABS: Glucose,Whole Blood 92 mg/dL (75-99)
[2016-12-11] MEDS ORDERED: ARTIFICIAL TEARS-HYPROMELLOSE DROPS 15 ML BTL BOTH EYES PRN (21:44)
[2016-12-11] MEDS ORDERED: Magnesium Replacement Protocol 1 EACH MISC MISCELLANE PRN ×2 (21:49→22:59)
[2016-12-11] MEDS ORDERED: Potassium Replacement Protocol 1 EACH MISC MISCELLANE PRN (21:49)
[2016-12-11] MEDS ORDERED: ALBUTEROL NEBULIZED 2.5 MG/3 ML INHALATION PRN (21:50)
[2016-12-11] MEDS ORDERED: IPRATROPIUM-ALBUTEROL 3 ML NEB INHALATION PRN (21:50)
[2016-12-11] MEDS: SODIUM CHLORIDE 0.9% 1,000 ML IV SCH (23:23)
[2016-12-11] MEDS: PHENYTOIN SODIUM EXTENDED 100 MG CAP PO SCH (23:24)
[2016-12-11] MEDS: FUROSEMIDE 40 MG TAB PO SCH (23:24)
[2016-12-11] MEDS: MAGNESIUM SULFATE-D5W PMX 1 GM in DEXTROSE/WATER 1 100ML.BAG IVPB SCH (23:24)
[2016-12-12] MEDS: MAGNESIUM SULFATE-D5W PMX 1 GM in DEXTROSE/WATER 1 100ML.BAG IVPB SCH ×2 (00:10→01:24)
[2016-12-12] MEDS: HYDROcodone/APAP 10-325MG 1 EACH TAB PO PRN ×3 (00:37→17:22)
[2016-12-12 03:41] LABS: Glucose,Whole Blood 105 mg/dL (75-99)
[2016-12-12 05:57] LABS: Glucose,Whole Blood 105 mg/dL (75-99)
[2016-12-12] MEDS: INSULIN LISPRO (humaLOG) 300 UNIT/3 ML VIAL SQ SCH ×4 (06:17→22:15)
[2016-12-12] MEDS: SODIUM CHLORIDE 0.9% 1,000 ML IV SCH ×2 (06:17→16:24)
[2016-12-12 06:54] LABS: Magnesium 2.1 mg/dL (1.6-2.3)
--- NOTE | 2016-12-12 08:17 | US ---
EXAMINATION TYPE: US carotid duplex BILAT DATE OF EXAM: 12/12/2016 COMPARISON: US CLINICAL HISTORY: Stenosis. Slurred speech, blurred vision EXAM MEASUREMENTS: RIGHT: Peak Systolic Velocity (PSV) cm/sec ----- Right CCA: 53.8 ----- Right ICA: 86.4 ----- Right ECA: 143.1 ICA/CCA ratio: 1.6 RIGHT: End Diastole cm/sec ----- Right CCA: 13.2 ----- Right ICA: 27.0 ----- Right ECA: 0.0 LEFT: Peak Systolic Velocity (PSV) cm/sec ----- Left CCA: 60.0 ----- Left ICA: 93.1 ----- Left ECA: 87.7 ICA/CCA ratio: 1.6 LEFT: End Diastole cm/sec ----- Left CCA: 16.0 ----- Left ICA: 32.9 ----- Left ECA: 9.2 VERTEBRALS (direction of flow): Right Vertebral: Antegrade Left Vertebral: Antegrade Bilateral intimal thickening, minimal plaque bilateral bulb, elevated velocity: right mid ECA, no sig nificant stenosis IMPRESSION: No hemodynamic significant stenosis of the proximal internal carotid arteries bilaterall y by Doppler criteria, and indirect measurement of carotid stenosis
[2016-12-12] MEDS: PHENYTOIN SODIUM EXTENDED 100 MG CAP PO SCH ×4 (08:34→22:27)
[2016-12-12] MEDS: CYANOCOBALAMIN 500 MCG TAB PO SCH (08:35)
[2016-12-12] MEDS: B COMPLEX-VIT C-VIT E-ZINC 1 EACH TAB PO SCH (08:35)
[2016-12-12] MEDS: FINASTERIDE 5 MG TAB PO SCH (08:35)
[2016-12-12] MEDS: PANTOPRAZOLE 40 MG TABLET PO SCH (08:35)
[2016-12-12] MEDS: CHOLECALCIFEROL 1,000 UNIT TAB PO SCH (08:35)
[2016-12-12] MEDS: MAGNESIUM OXIDE 400 MG TAB PO SCH (08:35)
[2016-12-12] MEDS: ASPIRIN 325 MG TAB PO SCH (08:39)
[2016-12-12] MEDS: FUROSEMIDE 40 MG TAB PO SCH ×2 (08:54→22:25)
[2016-12-12] MEDS ORDERED: LORazepam 2 MG/ML SYRINGE IV PRN (08:58)
[2016-12-12 09:20] LABS: Hemoglobin A1C 5.8 % (4.2-6.1)
--- NOTE | 2016-12-12 10:22 | ECHOF ---
Referral Reason:Stroke MEASUREMENTS -------- HEIGHT: 182.9 cm WEIGHT: 111.6 kg BP: 151/100 RVIDd: 3.9 cm (< 3.3) IVSd: 1.4 cm (0.6 - 1.1) LVIDd: 4.8 cm (3.9 - 5.3) LVPWd: 1.4 cm (0.6 - 1.1) IVSs: 1.7 cm LVIDs: 3.3 cm LVPWs: 1.6 cm LA Diam: 4.9 cm (2.7 - 3.8) LAESV Index (A-L): 42.24 ml/m MV EXCURSION: 21.518 mm (> 18.000) MV EF SLOPE: 73 mm/s (70 - 150) EPSS: 0.7 cm MV E Roge: 0.61 m/s MV DecT: 231 ms MV A Roge: 1.03 m/s MV E/A Ratio: 0.59 RAP: 5.00 mmHg RVSP: 17.74 mmHg FINDINGS -------- Undetermined rhythm. This was a techncally difficult study with suboptimal views, , Definity utilized for enhancement of images. There is mild concentric left ventricular hypertrophy. Overall left ventricular systolic function is low-normal with, an EF between 50 - 55 %. The right ventricle is moderately enlarged. LA is severely dilated >40 ml/m2 The right atrial size is normal. 1.5MG OF DEFINITY UTLIZED: 2 OR MORE WALL SEGMENTS NOT VISUALIZED. There is mild aortic valve sclerosis. There is no evidence of aortic regurgitation. Mild mitral annular calcification present. Mild mitral regurgitation is present. Mild tricuspid regurgitation present. There is no evidence of pulmonary hypertension. The right ventricular systolic pressure, as measured by Doppler, is 17.74mmHg. There is no pulmonic regurgitation present. The aortic root size is normal. There is no pericardial effusion. CONCLUSIONS -------- 1. This was a techncally difficult study with suboptimal views, , Definity utilized for enhancement of images. 2. Mild tricuspid regurgitation present. 3. There is no evidence of pulmonary hypertension. 4. The right ventricular systolic pressure, as measured by Doppler, is 17.74mmHg. 5. There is mild concentric left ventricular hypertrophy. 6. Overall left ventricular systolic function is low-normal with, an EF between 50 - 55 %. 7. The right ventricle is moderately enlarged. 8. LA is severely dilated >40 ml/m2 9. 1.5MG OF DEFINITY UTLIZED: 2 OR MORE WALL SEGMENTS NOT VISUALIZED. 10. There is mild aortic valve sclerosis. 11. Mild mitral annular calcification present. 12. Mild mitral regurgitation is present. ARCHIVIST ECONOMIC HISTORY: Cindy Sepulveda RDCS
[2016-12-12 11:45] LABS: Glucose,Whole Blood 117 mg/dL (75-99)
--- NOTE | 2016-12-12 13:07 | FL ---
EXAMINATION TYPE: FL barium swallow w video DATE OF EXAM: 12/12/2016 COMPARISON: NONE HISTORY: Food sticking TECHNIQUE: Fluoroscopy. FINDINGS: Fluoroscopic guidance was provided for the procedure performed in conjunction with the [facility] pathology department. Please see complete report forthcoming from the Speech Pathology departmen t. Various consistencies from thin liquid to solids were administered. Penetration was evident with nectar thick liquids and rare occasional additional consistencies. This was not persistent. No definite aspiration was evident although several episodes of clearing spontane ously by the patient was observed. There is probably within the vallecula. There is free spill from the hypopharynx into the esophagus w ith multiple consistencies. There is weak propulsion of the oral bolus. Please see complete report forthcoming from the speech pathology department. IMPRESSION: 1. Transient penetration with various consistencies. No definite aspiration was evident. 2. Pooling within the vallecula. 3. Poor propulsion of the bolus.
--- NOTE | 2016-12-12 13:12 | HP ---
DATE OF ADMISSION: The chief complaints are right-sided facial droop and as well as diplopia. HISTORY OF PRESENT ILLNESS: This 71-year-old gentleman with a past medical history of multiple medical problems such as asthma, CAD, COPD, CVA, TIA, diabetes mellitus type 2, history of GERD, a hearing disorder, history of hypertension, hyperlipidemia, history of the liver disorders, memory impairment, myocardial infarction, apparently has not been following a primary physician in the outpatient setting. Patient. The patient is noted to have a right-sided facial droop and patient also progressively weak and speech has become slurry and patient also had diplopia. Patient came to [facility], admitted for further evaluation and treatment. In the ER, the patient had a CAT scan of the brain and angiography which did not show any acute abnormality except cerebral atrophy, small vessel ischemia. The progress showed considered. The MRA was ordered. Neurology consult was sought. Patient admitted for further evaluation and treatment. There is no history of fever, chills or rigors. No history of headache, loss of consciousness or seizures. The patient was supposed to follow up with the primary physician in [place] for which the patient has not done. PAST MEDICAL HISTORY: Asthma, CAD, CHF, COPD, CVA, TIA, diabetes mellitus type 2, GERD, hypertension, hyperlipidemia, history of liver disorders, history of memory impairment, history of seizure disorder, sleep apnea, hypothyroidism. The medications prior to admission, the home medications are: 1. Vitamin B12 one p.o. daily. 2. Coenzyme Q 100 mg p.o. daily. 3. Klor-Con 10 mEq p.o. daily. 4. Dilantin 100 mg p.o. q.i.d. 5. Protonix 40 mg. 6. Nitrostat 0.4 sublingual. 7. Meloxicam 15 mg p.o. daily. 8. Magnesium oxide 400 mg daily. 9. Cozaar 100 mg p.o. daily. 10. Imdur 30 mg p.o. daily. 11. Combivent 1 puff t.i.d. p.r.n. 12. Lantus 40 units subQ q.h.s. 13. [place] 1 tablet t.i.d. p.r.n. 14. Lasix 40 mg p.o. b.i.d. 15. Proscar 5 mg p.o. daily. 16. Cardizem CD 240 mg q.h.s. 17. Vitamin B12 two thousand mcg p.o. daily. 18. Vitamin D3 one thousand units daily. 19. Ecotrin 325 mg daily. 20. Artificial tears 2 drops t.i.d. p.r.n. 21. Proventil 1 puff q.i.d. p.r.n. Allergies are multiple allergies DEPO-MEDROL, KEFLEX, CYMBALTA, NEURONTIN, GOLYTELY, LYRICA. FAMILY HISTORY: History of cancer in the family with mets to the brain. SOCIAL HISTORY: Previous history of smoking, no history of alcohol. REVIEW OF SYSTEMS: ENT: As mentioned earlier. CARDIOVASCULAR SYSTEM: No angina or palpitations. RESPIRATORY: As mentioned earlier. GI: No nausea. : No dysuria. NERVOUS SYSTEM: As mentioned earlier. ALLERGY/IMMUNOLOGY: As mentioned earlier. MUSCULOSKELETAL: As mentioned earlier. RHEUMATOLOGY: Negative. ENDOCRINE: As mentioned earlier. CONSTITUTIONAL: As mentioned earlier. DERMATOLOGY: Negative. PSYCHIATRY: As mentioned earlier. PHYSICAL EXAM: The patient is alert and oriented x3. The patient is dysarthric. Pulse 76, blood pressure 179/77, respirations 18, temperature 97 degrees, pulse ox 98% on 2 L. HEENT: Conjunctivae normal, oral mucosal moist. NECK: No jugular venous distention. No carotid bruit. No lymph node enlargement. CARDIOVASCULAR SYSTEM: S1, S2, muffled. RESPIRATORY: Breath sounds diminished at the bases. No rhonchi, no crackles. ABDOMEN: Soft, obese, nontender. No mass palpable. LEGS: No edema. No swelling. NERVOUS SYSTEM: Higher function as mentioned. Cranial nerves the sixth paralysis on the right side present, otherwise, deviation also present. Otherwise, minimal weakness mainly on the right side and some minimal right coordination also noted. SKIN: No ulcer, rash, bleed. LYMPHATICS: No lymph node enlargement in the neck, axillae or groin. JOINTS: No activity noted. LABS: Platelets are 115, glucose 104 and other labs are noted, magnesium 1.4. ASSESSMENT: 1. Diplopia and as well as a right lateral leg paralysis, possible acute stroke; rule out brainstem stroke. 2. Thrombocytopenia. 3. Increased random blood sugar. 4. Hypomagnesemia. 5. History of asthma, chronic obstructive pulmonary disease. 6. History of congestive heart failure. 7. History of coronary artery disease. 8. History of cerebrovascular accident, transient ischemic attack. 9. History of diabetes type 2. 10. History of gastroesophageal reflux disease. 11. Hard of hearing. 12. Hypertension. 13. Hyperlipidemia. 14. History of chronic liver disease. 15. History of memory impairment. 16. History of myocardial infarction. 17. History of seizure disorder. 18. History of sleep apnea on CPAP. 19. Hypothyroidism. 20. History of recent weight loss, about 50 pounds. 21. History of peripheral neuropathy. 22. Chronic hypoxic respiratory failure, on home oxygen nasal cannula. 23. History of seizure disorder. 24. History of prior noncompliance with followup. 25. History of depression, not otherwise specified. 26. Obesity with body mass index of 33.4. 27. Remote history of nicotine dependence. RECOMMENDATION: In this 71-year-old gentleman who presented with multiple complex medical issues, will monitor the patient closely. Continue with the current medication and symptomatic treatment. Continue with the rest of the home medications. Monitor blood sugars closely. Would also recommend MRI and complete neurovascular including 2-D echo and carotid Doppler. Neurology consultation. Guarded prognosis because of multiple complex medical issues. Further recommendations to follow. Also recommended the patient to follow up closely with the primary physician in the outpatient setting, also. Discussed with the patient who understands. NUVIA
--- NOTE | 2016-12-12 15:18 | MR ---
EXAMINATION TYPE: MR brain wo/w con DATE OF EXAM: 12/12/2016 COMPARISON: 04/24/2013 HISTORY: Rt side facial droop, slurred speech, weakness CONTRAST: Performed utilizing 20 mL intravenous MultiHance gadolinium contrast. TECHNIQUE: Multiplanar, multiecho imaging on a 3.0 Tammi magnet is performed through the brain. Stud y is performed within 24 hours of arrival to the hospital. The craniovertebral junction is normal. The pituitary is normal. Diffusion-weighted imaging is performed. No abnormal hyperintensity is present to suggest an acute i ntracranial infarct or acute ischemic change. There are scattered punctate areas of hyperintensity on T2 and Inversion Recovery weighted sequences which are non-specific but can be related to microvascular ischemic changes. Ventricles and sulci are prominent for the patient age. Cerebellar pontine angle and internal auditory canals appear unremarkable. Small amount fluid may be within the mastoid air cells. Correlate for mild mastoiditis. No abnormal enhancement is evident. IMPRESSIONS: 1. Multiple scattered punctate deep white matter changes compatible with chronic appearing white maximino er ischemic changes. Findings are similar to 2013. 2. Mild bilateral mastoiditis
[2016-12-12 15:27] VITALS: BMI 32.8
[2016-12-12 17:11] LABS: Glucose,Whole Blood 110 mg/dL (75-99)
--- NOTE | 2016-12-12 20:48 | PN ---
DATE OF SERVICE: 12/12/2016 This 71-year-old gentleman who was admitted with weakness and as well as right side facial droop and diplopia and dysarthria, is being closely monitored at this time. Multiple evaluations are being carried out. Brain MRA has been done today. Neurology evaluation in progress. MRI showed multiple scattered punctate, deep white matter changes compatible with chronic appearing white matter ischemic changes and mild bilateral mastoiditis with no evidence of any acute stroke. Carotid Doppler showed no hemodynamically significant stenosis. Video fluoroscopic swallow study was done, which showed a . No definite aspiration. Pooling within the vallecula. A 2-D echocardiogram read by cardiology showed severely dilated at 40 mL. Ejection fraction 50% to 55. Past medical history reviewed. REVIEW OF SYSTEMS: CARDIOVASCULAR: No angina or palpitations. RESPIRATORY: As mentioned earlier. GASTROINTESTINAL: As mentioned earlier. GENITOURINARY: No dysuria. CENTRAL NERVOUS SYSTEM: As mentioned earlier. Current medications are reviewed and include: 1. [place] 10 mg daily p.r.n. 3. DuoNeb q.i.d. and p.r.n. 4. Aspirin 320 mg daily. 5. Vitamin D3 1000 daily. 6. Vitamin B12 2000 daily. 7. Proscar 5 mg daily. 8. Lasix 40 mg b.i.d. 9. Humalog scale. 10. Ativan. 11. Magnesium oxide. 12. P.r.n. medications. PHYSICAL EXAMINATION: The patient is alert and oriented times two. Patient is dysarthric. Pulse is 66. Blood pressure 142/67, respirations 18, temperature 97.4, pulse ox 97% on 2 L. HEENT: Conjunctivae normal. Oral mucosa moist. NECK: No jugular venous distention. No carotid bruits. No lymph node enlargement. CARDIOVASCULAR: S1, S2 muffled. No S3, no S4. RESPIRATORY: Breath sounds diminished at the bases. No rhonchi. No crackles. ABDOMEN: Soft, nontender. No mass palpable. LEGS: No edema. No swelling. CENTRAL NERVOUS SYSTEM: Higher functions as mentioned earlier. Cranial nerves 6 n palsy on the right present. Weakness, dysarthria and dysphonia also present. right side and conjugate gaze dysfunction. SKIN: No ulcer, rash or bleeding. LABS: positive . Glucose 105. CBC noted. ASSESSMENT: 1. Diplopia and as well as right lateral gaze paralysis, possible sixth nerve palsy, acute stroke rule out brainstem stroke. 2. Thrombocytopenia. 3. Increased random blood sugar. 4. Hypomagnesemia. 5. History of asthma, chronic obstructive pulmonary disease. 6. History of congestive heart failure. 7. History of coronary artery disease. 8. History of cerebrovascular accident, transient ischemic attack. 9. History of diabetes type 2. 10. History of gastroesophageal reflux disease. 11. Hard of hearing. 12. Hypertension, essential. 13. Hyperlipidemia. 14. History of chronic liver disease. 15. History of memory impairment. 16. History of myocardial infarction. 17. History of seizure disorder. 18. History of sleep apnea on CPAP. 19. Hypothyroidism. 20. History of recent weight loss about 50 pounds. 21. History of peripheral neuropathy. 22. Chronic hypoxic respiratory failure on home oxygen nasal cannula. 23. History of seizure disorder. 24. History of prior noncompliance with follow-up. 25. History of depression, not otherwise specified. 26. Obesity with body mass index 33.5. 27. Remote history of nicotine dependence. RECOMMENDATIONS AND DISCUSSION: Recommend to continue current medications. Continue with monitoring and symptomatic treatment. Otherwise, at this time I would recommend to follow the patient closely, recommend MRI, neurovascular work-up, otherwise antiplatelets agents. Guarded prognosis because of multiple complex medical issues. See orders for further details. MTDD
[2016-12-12 21:01] LABS: Glucose,Whole Blood 123 mg/dL (75-99)
[2016-12-13] MEDS: HYDROcodone/APAP 10-325MG 1 EACH TAB PO PRN ×3 (00:48→17:27)
[2016-12-13 02:15] LABS: Glucose,Whole Blood 86 mg/dL (75-99)
[2016-12-13] MEDS: SODIUM CHLORIDE 0.9% 1,000 ML IV SCH ×3 (04:07→21:57)
--- NOTE | 2016-12-13 05:39 | CONS ---
DATE OF CONSULTATION: 12/12/2016 CHIEF COMPLAINT: Double vision and speech difficulties. HISTORY OF PRESENT ILLNESS: Mr. Sánchez is a pleasant 71-year-old male who is being evaluated by the neurology service per the request of Dr. Villagomez for the above-mentioned complaints. The patient states that he has been having some changes in his vision since . He reports some blurred vision, but also reports that he has been having significant double vision. Over the past few days, he also reports some slurring of his speech and occasional difficulty swallowing. Yesterday, his daughter noticed that his right face was weaker than his left side and this prompted his arrival to the emergency room with concerns of a stroke. In the emergency room, a CT scan of the brain was done, which showed small vessel ischemic changes and generalized atrophy. A CT angiogram of the brain and neck were done, which were normal. An MRI of the brain was done, which showed only small vessel ischemic changes with no acute findings. His carotid Doppler showed no hemodynamically significant stenosis. He did undergo a barium swallow study, which showed no signs of aspiration. His laboratory workup showed a normal fasting lipid panel, cardiac enzymes and comprehensive metabolic profile. His CBC was normal except for thrombocytopenia at 115,000. His urine drug screen was positive for barbiturates and opiates. The patient does take hydrocodone at home for chronic pain. The patient also reports a history of seizure disorder for several years. He reports being maintained on Dilantin. His serum Dilantin level is subtherapeutic at 6.5, although he takes this at 100 mg 4 times daily. He denies missing any doses. At the time of my evaluation, he is lying in his bed and appears to be in no acute distress. He denies any changes in his slurred speech or his double vision since his admission. PAST MEDICAL HISTORY: Chronic pain syndrome, asthma, coronary artery disease, congestive heart failure, chronic obstructive pulmonary disease, strokes, transient ischemic attacks, diabetes, gastroesophageal reflux disease, hypertension, dyslipidemia, seizure disorder, hypothyroidism, sleep apnea. SOCIAL HISTORY: The patient is a former smoker. He denies any alcohol or drug use. FAMILY HISTORY: Positive for cancer. HOME MEDICATIONS: Reviewed in the chart. ALLERGIES: DEPO-MEDROL, KEFLEX, CYMBALTA, NEURONTIN, LYRICA, GOLYTELY. REVIEW OF SYSTEMS: CONSTITUTIONAL: Positive for fatigue. EYES: As mentioned above. ENT: Positive for chronic diminished hearing. CARDIOVASCULAR: As mentioned above. RESPIRATORY: Positive for occasional shortness of breath. NEUROLOGICAL: As mentioned above. GASTROINTESTINAL: Negative. GENITOURINARY: Negative. PSYCHIATRIC: Negative. DERMATOLOGICAL: Negative. ENDOCRINE: Positive for diabetes and hypothyroidism. MUSCULOSKELETAL: Positive for occasional joint pain. PHYSICAL EXAM: Vital signs show a temperature of 97.3, pulse 72, respirations 18, blood pressure 143/76. GENERAL APPEARANCE: The patient is a well-developed, overweight, elderly male who appears to be in no acute distress. HEENT: Normocephalic, atraumatic, no facial asymmetry is seen. Extraocular muscles are intact, but diplopia worsens with right lateral gaze. Mild right eyelid ptosis is noticed. Neck is supple with no masses felt. CARDIOVASCULAR: Regular rate and rhythm. ABDOMEN: Nontender, nondistended. Extremities showed chronic vascular changes in both legs with moderate edema. NEUROLOGICAL EXAM: The patient is awake and oriented x3. Speech is mildly dysarthric. Language testing was normal. Strength is full in all 4 extremities. Cranial nerve testing showed mild right ptosis and diplopia as mentioned above. Diplopia does resolve with closure of either eye. No tremors or seizure-like activity is seen. IMPRESSION: 1. Diplopia. 2. Dysarthria. 3. Dysphagia. 4. Ptosis. 5. History of seizure disorder. 6. Subtherapeutic Dilantin level. RECOMMENDATIONS: The patient's symptoms are not consistent with any acute ischemic event as they have been present for several days now and they have been waxing and waning in intensity. The fact that he has diplopia with dysarthria and ptosis, neuromuscular junction disorder needs to be ruled out. I will order a myasthenia gravis panel. He does complain of generalized weakness, but he believes this is due to his reduced oral intake with his dysphagia. His swallow study was normal showing no aspiration. Speech therapy is following the patient. As for his seizure disorder history, he reports having significant difficulty keeping his Dilantin at a therapeutic a range. I had a lengthy discussion with him regarding switching oral antiepileptic medications. I will start him on Keppra 750 mg b.i.d. Once he has been on this dose for a couple of weeks, I will slowly wean him off of Dilantin. Continue neuro checks. An EEG has been ordered. I will continue to follow with you. Further recommendations to follow. Thank you for allowing me to participate in the care of your patient. If you have any questions, please feel free to contact me.
[2016-12-13 06:24] LABS: Basophils % (A) 1 %; CH 31.8; CHCM 34.2; Eosinophils # (A) 0.1 k/uL (0-0.7); Eosinophils % (A) 2 %; HCT 39.6 % (39.0-53.0); HDW 2.69; HGB 13.1 gm/dL (13.0-17.5); Luc # (Auto) 0.09; Luc % (Auto) 2; Lymphocytes # (A) 1.2 k/uL (1.0-4.8); Lymphocytes % (A) 25 %; MCH 30.9 pg (25.0-35.0); MCHC 33.1 g/dL (31.0-37.0); MCV 93.2 fL (80.0-100.0); Monocytes # (A) 0.3 k/uL (0-1.0); Monocytes % (A) 5 %; Neutrophils # (A) 3.3 k/uL (1.3-7.7); Neutrophils % (A) 66 %; RBC 4.25 m/uL (4.30-5.90); RDW 13.6 % (11.5-15.5); WBC (Perox) 5.26
[2016-12-13 06:32] LABS: Glucose,Whole Blood 95 mg/dL (75-99)
[2016-12-13] MEDS: INSULIN LISPRO (humaLOG) 300 UNIT/3 ML VIAL SQ SCH ×4 (06:34→21:52)
[2016-12-13 06:43] LABS: Anion Gap 8 mmol/L; Blood Urea Nitrogen 14 mg/dL (9-20); Calcium 9.1 mg/dL (8.4-10.2); Carbon Dioxide 24 mmol/L (22-30); Chloride 109 mmol/L (98-107); Cholesterol 143 mg/dL (<200); Glucose 86 mg/dL (74-99); HDL Cholesterol 44 mg/dL (40-60); Non-African American GFR(MDRD) >60 (>60 ml/min/1.73 sqM); Potassium 4.2 mmol/L (3.5-5.1); Sodium 141 mmol/L (137-145); Triglycerides 62 mg/dL (<150)
[2016-12-13 07:46] LABS: Manual Review Performed
[2016-12-13] MEDS: FINASTERIDE 5 MG TAB PO SCH (09:08)
[2016-12-13] MEDS: ASPIRIN 325 MG TAB PO SCH (09:08)
[2016-12-13] MEDS: B COMPLEX-VIT C-VIT E-ZINC 1 EACH TAB PO SCH (09:09)
[2016-12-13] MEDS: FUROSEMIDE 40 MG TAB PO SCH ×2 (09:09→21:56)
[2016-12-13] MEDS: CYANOCOBALAMIN 500 MCG TAB PO SCH (09:09)
[2016-12-13] MEDS: CHOLECALCIFEROL 1,000 UNIT TAB PO SCH (09:09)
[2016-12-13] MEDS: MAGNESIUM OXIDE 400 MG TAB PO SCH (09:10)
[2016-12-13] MEDS: PHENYTOIN SODIUM EXTENDED 100 MG CAP PO SCH ×4 (09:10→21:56)
[2016-12-13] MEDS: PANTOPRAZOLE 40 MG TABLET PO SCH (09:10)
[2016-12-13 11:35] LABS: Glucose,Whole Blood 114 mg/dL (75-99)
--- NOTE | 2016-12-13 15:33 | P.PN ---
Subjective Principal diagnosis: Double vision and dysarthria This is a pleasant 71-year-old male continuing to be evaluated by the neurology service. Since he has been having symptoms of vision changes, speech slurring, and difficulty swallowing. There was some concern before he was brought to the emergency room about some facial weakness on the left side. CT of the brain was done and showed some small vessel ischemic changes and generalized atrophy. But no evidence of acute cerebral infarct. A CTA of the brain and neck were normal. MRI of the brain continues to show only small vessel ischemic changes in no acute findings. His carotid Doppler showed no hemodynamically stable can stenosis. His barium swallow showed no signs of aspiration. He reported a seizure history for several years. He came in with a subtherapeutic Dilantin level. Because of this and for some compliance concerns we did start him on Keppra 750 mg twice a day and after couple weeks he will start weaning off Dilantin he has had no problems since starting Keppra. He denies any side effects. Objective - Vital Signs Vital signs: Vital Signs Temp 97.4 F L 12/13/16 08:00 Pulse 78 12/13/16 08:00 Resp 18 12/13/16 08:00 BP 158/84 12/13/16 08:00 Pulse Ox 94 L 12/13/16 08:00 Intake & Output 12/12/16 12/13/16 12/13/16 18:59 06:59 18:59 Intake Total 920 700 Output Total 400 450 Balance 520 250 Weight 109.8 kg 110 kg Intake: IV 800 700 Sodium Chloride 0.9% 1, 800 700 000 ml @ 100 mls/hr IV . Q10H [facility] Rx#:[id number] Oral 120 Output: Urine 400 450 Other: Voiding Method Urinal Urinal # Voids 2 2 - Constitutional General appearance: Present: average body habitus, cooperative, no acute distress - EENT Eyes: Present: EOMI, ptosis. Absent: abnormal pupil ENT: Present: hearing grossly normal - Neck Neck: Present: normal ROM. Absent: rigidity - Respiratory Respiratory: negative: prolonged expiration, prolonged inspiration - Cardiovascular Rhythm: regular - Gastrointestinal General gastrointestinal: Absent: distended, tenderness - Neurologic Neurologic Comment(s): He is awake alert and oriented 3. Speech is mildly dysarthric, but language is normal. There is no strength or sensory deficit in any extremity. No tremors or seizure-like activities are seen. Subjective diplopia remains, and resolves with closure of either eye. - Labs CBC & Chem 7: 12/13/16 05:55 12/13/16 05:55 Labs: Abnormal Lab Results - Last 24 Hours (Table) 12/12/16 12/12/16 12/13/16 Range/Units 16:48 21:00 05:55 RBC 4.25 L (4.30-5.90) m/uL Plt Count 90 L (150-450) k/uL Chloride (98-107) mmol/L POC Glucose (mg/dL) 110 H 123 H (75-99) mg/dL 12/13/16 12/13/16 Range/Units 05:55 11:34 RBC (4.30-5.90) m/uL Plt Count (150-450) k/uL Chloride 109 H (98-107) mmol/L POC Glucose (mg/dL) 114 H (75-99) mg/dL Microbiology - Last 24 Hours (Table) 12/11/16 18:20 Urine Culture - Final Urine,Clean Catch Assessment and Plan (1) Diplopia Status: Acute (2) Dysarthria Status: Acute (3) Ptosis Status: Acute (4) Seizure disorder Status: Chronic (5) Subtherapeutic serum dilantin level Status: Acute (6) Dysphasia Status: Acute Plan: Again we do not feel that the patient's symptoms are consistent with any cerebrovascular incident. The symptoms are more consistent with neuromuscular junction disorders. Myasthenia gravis would be most likely. We have ordered screening labs for this. Speech therapy will continue to follow the patient. As above we have started him on Keppra and we will likely be weaning off Dilantin in an outpatient setting. An EEG has just been accomplished and we will review those findings. We will continue to follow mostly in an outpatient setting. Barring any unforeseen abnormalities on his EEG he could be discharged. Next I have performed a history and physical on the above patient. I have reviewed the above note, and agree.
--- NOTE | 2016-12-13 16:20 | P.PN ---
Subjective This is a 71-year-old gentleman that comes in to the hospital with generalized weakness and diplopia and dysarthria for 3-4 weeks. Patient states that he has not been feeling well for about 6 months with some right-sided weakness has seen Dr. Amos Barajas who did order a MRI and MRA in the recent few weeks. Since patient states that he has been having worsening vision. Patient does have a right-sided cataract removal thereafter has some residual blindness however as described in the recent weeks has had more double vision. Patient states that his speech is more difficult especially after having a long conversation. Patient did have an MRI which showed scattered deep white matter changes Today continues to have right-sided weakness Denies having any headaches or chest pain difficulty in breathing abdominal pain urinary urgency or frequency or diarrhea. Objective - Vital Signs Vital signs: Vital Signs Temp 97.4 F L 12/13/16 08:00 Pulse 78 12/13/16 08:00 Resp 18 12/13/16 08:00 BP 158/84 12/13/16 08:00 Pulse Ox 94 L 12/13/16 08:00 Intake & Output 12/12/16 12/13/16 12/13/16 18:59 06:59 18:59 Intake Total 920 700 Output Total 400 450 Balance 520 250 Weight 109.8 kg 110 kg Intake: IV 800 700 Sodium [place]loride 0.9% 1, 800 700 000 ml @ 100 mls/hr IV . Q10H [facility] Rx#:[id number] Oral 120 Output: Urine 400 450 Other: Voiding Method Urinal Urinal # Voids 2 2 450 - Exam Physical exam Gen. appearance oriented 3 in no distress Neck is supple no JVD Lungs good air entry clear to auscultation no rhonchi or wheezing Heart S1-S2 heard regular rate and rhythm no murmurs appreciated Abdomen is soft nontender no organomegaly bowel sounds are intact Neurologically extraocular movements are intact. Pupils equal round and reactive light and ablation. Right side upper and lower extremity strength is about 3-5 Left-sided strength is about 5 out of 5 Deep tendon reflexes are within normal limits Patient appears to have a predominant dysarthria which apparently is worse with progressive conversation and double vision. Skin no abnormalities appreciated - Labs CBC & Chem 7: 12/13/16 05:55 12/13/16 05:55 Labs: Abnormal Lab Results - Last 24 Hours (Table) 12/12/16 12/12/16 12/13/16 Range/Units 16:48 21:00 05:55 RBC 4.25 L (4.30-5.90) m/uL Plt Count 90 L (150-450) k/uL [place] (98-107) mmol/L POC Glucose (mg/dL) 110 H 123 H (75-99) mg/dL 12/13/16 12/13/16 Range/Units 05:55 11:34 RBC (4.30-5.90) m/uL Plt Count (150-450) k/uL Chloride 109 H (98-107) mmol/L POC Glucose (mg/dL) 114 H (75-99) mg/dL Microbiology - Last 24 Hours (Table) 12/11/16 18:20 Urine Culture - Final Urine,Clean Catch Assessment and Plan Plan: #1 rule out neuromuscular weakness including myasthenia gravis with progressive worsening of diplopia and dysarthria in the recent times #2 diabetes mellitus type 2 #3 history of CVA #4 CAD #5 history of CHF with preserved EF #6 pulmonary fibrosis #7 dyslipidemia #8 previous history of tobacco use and COPD Plan We'll repeat a CT chest. Patient did undergo a and T acetylcholinesterase antibody test. Patient has a history of smoking if that is negative we'll need to consider looking into any underlying lung lesions look of paraneoplastic syndromes as well as We'll defer to for further testing
[2016-12-13] MEDS: DOCUSATE 100 MG CAP PO SCH ×2 (17:27→21:56)
--- NOTE | 2016-12-13 18:39 | CT ---
EXAMINATION TYPE: CT chest wo con DATE OF EXAM: 12/13/2016 COMPARISON: 10/12/2016 HISTORY: Shortness of breath CT DLP: 765 mGycm Automated exposure control for dose reduction was used. FINDINGS: Airways: There is tracheomegaly and diffuse mild-moderate cylindrical bronchiectasis. Lung parenchyma: There there is attenuation of upper lobe vasculature with hyperinflation and several zones of peripheral end-stage honeycomb lung. There is no groundglass opacity to suggest active alve olitis. No fara lung consolidation or atelectasis. No pulmonary edema. No pulmonary nodules. Pleural and pericardial spaces: Negative Mediastinum: Retroesophageal right subclavian artery noted, congenital variant anatomy. No mediastina l or hilar adenopathy. Pulmonary arterial prominence, which can correlate with pulmonary hypertension . Redemonstrated mild cardiomegaly and prominent coronary arterial calcifications. Visualized subdiaphragmatic structures: Prominent cirrhosis changes noted, in addition to prominent s plenomegaly. IMPRESSION: 1. NO ACUTE PROCESS. 2. PULMONARY FIBROSIS WITH PULMONARY ARTERIAL FINDINGS WHICH CAN CORRELATE WITH PULMONARY HYPERTENSIO N. 3. CORONARY CALCIFICATIONS.
[2016-12-13 21:01] LABS: Glucose,Whole Blood 114 mg/dL (75-99)
[2016-12-14] MEDS: HYDROcodone/APAP 10-325MG 1 EACH TAB PO PRN ×3 (00:45→15:13)
[2016-12-14 04:30] VITALS: TEMP 98.2
[2016-12-14 05:41] LABS: Glucose,Whole Blood 98 mg/dL (75-99)
[2016-12-14] MEDS: INSULIN LISPRO (humaLOG) 300 UNIT/3 ML VIAL SQ SCH ×2 (05:50→12:33)
--- NOTE | 2016-12-14 08:56 | EEG ---
DATE OF SERVICE: 12/13/2016 REASON FOR TESTING: Stroke and history of seizures. AGE: 71Y CURRENT ANTIEPILEPTIC MEDICATIONS: Dilantin and Keppra. DESCRIPTION OF THE PROCEDURE: This EEG was performed using a 21-channel digital electroencephalograph, following the international 10 to 20 system. DESCRIPTION OF THE RECORDING: From the beginning of the tracing, and with the patient's eyes closed, the background rhythm was mostly consisting of 8 Hz alpha frequency in the posterior occipital leads. No obvious asymmetry is seen. Occasional muscle and movement artifacts are noticed. Photic stimulation was performed with a minimal driving response seen. No pathological waves were elicited. Hyperventilation was not performed. The patient remains awake throughout the tracing. No epileptiform discharges were seen. His EKG lead showed an irregularly irregular rhythm. INTERPRETATION: This awake EEG can be considered within normal limits except his EKG lead showed an irregularly irregular rhythm. No epileptiform discharges were seen. The absence of epileptiform discharge does not rule out the diagnosis of epilepsy, therefore, clinical correlation is recommended.
[2016-12-14] MEDS: SODIUM CHLORIDE 0.9% 1,000 ML IV SCH (09:26)
[2016-12-14] MEDS: CHOLECALCIFEROL 1,000 UNIT TAB PO SCH (09:27)
[2016-12-14] MEDS: PANTOPRAZOLE 40 MG TABLET PO SCH (09:27)
[2016-12-14] MEDS: ASPIRIN 325 MG TAB PO SCH (09:27)
[2016-12-14] MEDS: B COMPLEX-VIT C-VIT E-ZINC 1 EACH TAB PO SCH (09:27)
[2016-12-14] MEDS: PHENYTOIN SODIUM EXTENDED 100 MG CAP PO SCH ×2 (09:27→12:47)
[2016-12-14] MEDS: CYANOCOBALAMIN 500 MCG TAB PO SCH (09:27)
[2016-12-14] MEDS: MAGNESIUM OXIDE 400 MG TAB PO SCH (09:27)
[2016-12-14] MEDS: FUROSEMIDE 40 MG TAB PO SCH (09:27)
[2016-12-14] MEDS: DOCUSATE 100 MG CAP PO SCH (09:27)
[2016-12-14] MEDS: FINASTERIDE 5 MG TAB PO SCH (09:28)
[2016-12-14 09:40] VITALS: RESP 16
[2016-12-14 12:41] LABS: Glucose,Whole Blood 102 mg/dL (75-99)
--- NOTE | 2016-12-14 12:44 | P.DS ---
Providers Date of admission: 12/11/16 19:07 Attending physician: Erasto Villagomez Consults: 12/11/16 19:05 Consult Physician Routine Consulting Provider: Nida Buckley Consult Reason/Comments: cva Do you want consulting provider notified?: Yes Primary care physician: Stated None Hospital Course: This is a 71-year-old gentleman that comes in to the hospital with generalized weakness and diplopia and dysarthria for 3-4 weeks. Patient states that he has not been feeling well for about 6 months with some right-sided weakness has seen Dr. Amos Barajas who did order a MRI and MRA in the recent few weeks. Since patient states that he has been having worsening vision. Patient does have a right-sided cataract removal thereafter has some residual blindness however as described in the recent weeks has had more double vision. Patient states that his speech is more difficult especially after having a long conversation. Patient did have an MRI which showed scattered deep white matter changes Today continues to have right-sided weakness Denies having any headaches or chest pain difficulty in breathing abdominal pain urinary urgency or frequency or diarrhea. - Exam Physical exam Gen. appearance oriented 3 in no distress Neck is supple no JVD Lungs good air entry clear to auscultation no rhonchi or wheezing Heart S1-S2 heard regular rate and rhythm no murmurs appreciated Abdomen is soft nontender no organomegaly bowel sounds are intact Neurologically extraocular movements are intact. Pupils equal round and reactive light and ablation. Right side upper and lower extremity strength is about 3-5 Left-sided strength is about 5 out of 5 Deep tendon reflexes are within normal limits Patient appears to have a predominant dysarthria which apparently is worse with progressive conversation and double vision. Skin no abnormalities appreciated \ Assessment and Plan Plan: #1 rule out neuromuscular weakness including myasthenia gravis with progressive worsening of diplopia and dysarthria in the recent times #2 diabetes mellitus type 2 #3 history of CVA #4 CAD #5 history of CHF with preserved EF #6 pulmonary fibrosis #7 dyslipidemia #8 previous history of tobacco use and COPD Plan We'll repeat a CT chest. Patient did undergo a n acetylcholinesterase antibody test. He is noted to have pulmonary fibrosis on the CT of the chest. Is discharged home to follow-up with the cholinesterase antibody test Home with home care walker discussed safety precautions with the patient and the family driving restrictions as patient has diplopia at this time Patient Condition at Discharge: Fair Plan - Discharge Summary New Discharge Prescriptions: New levETIRAcetam [Keppra] 750 mg PO Q12HR #30 tab Continue Artificial Tears-Hypromellose [Artificial Tear Drops] 2 drops BOTH EYES TID PRN PRN Reason: Dry Eye(S) Potassium Chloride [Klor-Con 10] 10 meq PO DAILY Furosemide [Lasix] 40 mg PO BID Aspirin EC [Ecotrin] 325 mg PO DAILY Cholecalciferol [Vitamin D3] 1,000 unit PO DAILY Insulin Glargine [Lantus] 45 unit SQ HS Phenytoin Sodium Extended [Dilantin] 100 mg PO QID Pantoprazole Sodium 40 mg PO DAILY Meloxicam 15 mg PO DAILY Losartan Potassium [Cozaar] 100 mg PO DAILY Diltiazem Cd [Cardizem CD] 240 mg PO HS Isosorbide Mononitrate ER [Imdur] 30 mg PO DAILY Finasteride [Proscar] 5 mg PO DAILY Ipratropium/Albuterol Sulfate [Combivent Respimat Inhaler] 1 puff INHALATION RT-TID PRN PRN Reason: Shortness Of Breath Cyanocobalamin (Vitamin B-12) [Vitamin B-12] 2,000 mcg PO DAILY Vitamin B Complex 1 cap PO DAILY Nitroglycerin Sl Tabs [Nitrostat] 0.4 mg SUBLINGUAL Q5M PRN #50 tab PRN Reason: Chest Pain Albuterol Sulfate [Proventil Hfa] 1 puff INHALATION RT-QID PRN PRN Reason: Shortness Of Breath Ubidecarenone [Co Q-10] 100 mg PO DAILY Magnesium Oxide [Mag-Ox] 400 mg PO DAILY Hydrocodone/Acetaminophen [[place] 10-325 Tablet] 1 tab PO TID PRN PRN Reason: Pain Discharge Medication List Artificial Tears-Hypromellose [Artificial Tear Drops] 2 drops BOTH EYES TID PRN 04/14/15 [History] Aspirin EC [Ecotrin] 325 mg PO DAILY 04/14/15 [History] Cholecalciferol [Vitamin D3] 1,000 unit PO DAILY 04/14/15 [History] Diltiazem Cd [Cardizem CD] 240 mg PO HS 04/14/15 [History] Finasteride [Proscar] 5 mg PO DAILY 04/14/15 [History] Furosemide [Lasix] 40 mg PO BID 04/14/15 [History] Insulin Glargine [Lantus] 45 unit SQ HS 04/14/15 [History] Isosorbide Mononitrate ER [Imdur] 30 mg PO DAILY 04/14/15 [History] Losartan Potassium [Cozaar] 100 mg PO DAILY 04/14/15 [History] Meloxicam 15 mg PO DAILY 04/14/15 [History] Pantoprazole Sodium 40 mg PO DAILY 04/14/15 [History] Phenytoin Sodium Extended [Dilantin] 100 mg PO QID 04/14/15 [History] Potassium Chloride [Klor-Con 10] 10 meq PO DAILY 04/14/15 [History] Ipratropium/Albuterol Sulfate [Combivent Respimat Inhaler] 1 puff INHALATION RT- TID PRN 01/01/16 [History] Cyanocobalamin (Vitamin B-12) [Vitamin B-12] 2,000 mcg PO DAILY 07/24/16 [ History] Vitamin B Complex 1 cap PO DAILY 07/24/16 [History] Nitroglycerin Sl Tabs [Nitrostat] 0.4 mg SUBLINGUAL Q5M PRN #50 tab 09/22/16 [Rx ] Albuterol Sulfate [Proventil Hfa] 1 puff INHALATION RT-QID PRN 12/11/16 [History ] Hydrocodone/Acetaminophen [[place] 10-325 Tablet] 1 tab PO TID PRN 12/11/16 [ History] Magnesium Oxide [Mag-Ox] 400 mg PO DAILY 12/11/16 [History] Ubidecarenone [Co Q-10] 100 mg PO DAILY 12/11/16 [History] levETIRAcetam [Keppra] 750 mg PO Q12HR #30 tab 12/14/16 [Rx] Follow up Appointment(s)/Referral(s): Nida Buckley MD [STAFF PHYSICIAN] - 1 Week None,Stated [Primary Care Provider] - 1-2 days [facility] Visiting Nurse, [NON-STAFF] - Discharge Disposition: HOME WITH HOME HEALTH SERVICES
[2016-12-14 12:54] VITALS: BP 158/76; PULSE 73
--- NOTE | 2016-12-14 16:04 | P.PN ---
Subjective Principal diagnosis: Double vision and dysarthria This is a pleasant 71-year-old male continuing to be evaluated by the neurology service. Since he has been having symptoms of vision changes, speech slurring, and difficulty swallowing. There was some concern before he was brought to the emergency room about some facial weakness on the left side. CT of the brain was done and showed some small vessel ischemic changes and generalized atrophy. But no evidence of acute cerebral infarct. A CTA of the brain and neck were normal. MRI of the brain continues to show only small vessel ischemic changes in no acute findings. His carotid Doppler showed no hemodynamically stable can stenosis. His barium swallow showed no signs of aspiration. He reported a seizure history for several years. He came in with a subtherapeutic Dilantin level. Because of this and for some compliance concerns we did start him on Keppra 750 mg twice a day and after couple weeks he will start weaning off Dilantin he has had no problems since starting Keppra. He denies any side effects. Objective - Vital Signs Vital signs: Vital Signs Temp 98.2 F 12/14/16 04:00 Pulse 73 12/14/16 12:00 Resp 16 12/14/16 12:00 BP 158/76 12/14/16 12:00 Pulse Ox 96 12/14/16 12:00 Intake & Output 12/13/16 12/14/16 12/14/16 18:59 06:59 18:59 Intake Total 1040 240 Output Total 300 2050 Balance -300 -1010 240 Weight 109 kg Intake: IV 800 Sodium Chloride 0.9% 1, 800 000 ml @ 100 mls/hr IV . Q10H [facility] Rx#:[id number] Oral 240 240 Output: Urine 300 2050 Other: Voiding Method Urinal Urinal Urinal # Voids 1 1 1 # Bowel Movements 0 - Constitutional General appearance: Present: average body habitus, cooperative, no acute distress - EENT Eyes: Present: PERRLA, ptosis. Absent: abnormal pupil ENT: Present: hearing grossly normal - Neck Neck: Present: normal ROM. Absent: rigidity - Respiratory Respiratory: negative: prolonged expiration, prolonged inspiration - Cardiovascular Rhythm: regularly irregular - Gastrointestinal General gastrointestinal: Absent: distended, tenderness - Neurologic Neurologic Comment(s): Is alert awake and oriented 3. Speech is mildly dysarthric. Strength is 5 minus in bilateral upper and lower extremities. There is no tremors or seizure- like activity seen. There is some mild ptosis. - Labs CBC & Chem 7: 12/13/16 05:55 12/13/16 05:55 Labs: Abnormal Lab Results - Last 24 Hours (Table) 12/13/16 12/14/16 Range/Units 21:00 12:20 POC Glucose (mg/dL) 114 H 102 H (75-99) mg/dL Assessment and Plan (1) Diplopia Status: Acute (2) Dysarthria Status: Acute (3) Ptosis Status: Acute (4) Seizure disorder Status: Chronic (5) Subtherapeutic serum dilantin level Status: Acute (6) Dysphasia Status: Acute Plan: Again we do not feel that the patient's symptoms are consistent with any cerebrovascular incident. The symptoms are more consistent with neuromuscular junction disorders. Myasthenia gravis would be most likely. We have ordered screening labs for this. Speech therapy will continue to follow the patient. As above we have started him on Keppra and we recommend weaning off Dilantin in an outpatient setting. He told me today that he is actually a patient of Dr. Mckeon And he will follow-up with him. An EEG showed no abnormal activity. I have performed a history and physical on the above patient. I have reviewed the above note, and agree.
[2016-12-14 16:57] LABS: Glucose,Whole Blood 127 mg/dL (75-99)
== END 2016-12-14 18:55 | disposition home health service (06) | DRG 57 ==
LOC: EC 17:22 → 6SEL 19:07
PROVIDERS: ADMIT Hospitalist; ATTEND Hospitalist
DX: G70.00 Myasthenia gravis without (acute) exacerbation (principal); J96.11 Chronic respiratory failure with hypoxia; E11.42 Type 2 diabetes mellitus with diabetic polyneuropathy; D69.6 Thrombocytopenia, unspecified; I11.0 Hypertensive heart disease with heart failure; I50.9 Heart failure, unspecified; J84.10 Pulmonary fibrosis, unspecified; R13.10 Dysphagia, unspecified; E83.42 Hypomagnesemia; J44.9 Chronic obstructive pulmonary disease, unspecified; G40.909 Epilepsy, unspecified, not intractable, without status epilepticus; E03.9 Hypothyroidism, unspecified; E66.9 Obesity, unspecified; E78.5 Hyperlipidemia, unspecified; G47.30 Sleep apnea, unspecified; G89.4 Chronic pain syndrome; H54.0 Blindness, both eyes; H70.93 Unspecified mastoiditis, bilateral; H53.2 Diplopia; H91.90 Unspecified hearing loss, unspecified ear; I25.10 Atherosclerotic heart disease of native coronary artery without angina pectoris; I25.2 Old myocardial infarction; K21.9 Gastro-esophageal reflux disease without esophagitis; K74.60 Unspecified cirrhosis of liver; R47.02 Dysphasia; R29.810 Facial weakness; H02.409 Unspecified ptosis of unspecified eyelid; R47.1 Dysarthria and anarthria; F32.9 Major depressive disorder, single episode, unspecified; R01.1 Cardiac murmur, unspecified; M54.9 Dorsalgia, unspecified; N42.9 Disorder of prostate, unspecified; Z68.33 Body mass index [BMI] 33.0-33.9, adult; Z79.4 Long term (current) use of insulin; Z79.82 Long term (current) use of aspirin; Z79.899 Other long term (current) drug therapy; Z87.891 Personal history of nicotine dependence; Z88.1 Allergy status to other antibiotic agents; Z88.8 Allergy status to other drugs, medicaments and biological substances
CPT/HCPCS: 36415; 70450; 70496; 70498; 70553; 71020; 71250; 74230; 80048; 80053; 80061; 80185; 80306; 81003; 82550; 82553; 83036; 83519; 83735; 84100; 84484; 85025; 85610; 85730; 87086; 93005; 93306; 93880; 95819; 96360; 99285

== ENCOUNTER 2017-04-04 19:57 | Inpatient (IN) | payer MEDICARE, BC ==
[2017-04-04] MEDS ORDERED: ONDANSETRON 4 MG/2 ML VIAL IM STA (20:28)
[2017-04-04] MEDS ORDERED: PANTOPRAZOLE 40 MG/10 ML VIAL IVP STA (20:28)
[2017-04-04] MEDS ORDERED: SODIUM CHLORIDE 0.9% 1,000 ML IV STA (20:28)
[2017-04-04] MEDS ORDERED: HYDROmorphone 0.5 MG/0.5 ML SYRINGE IVP STA (20:28)
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
[2017-04-04] MEDS: RX INFO: IV CONTRAST WAS GIVEN 1 EACH MISC MISCELLANE PRN ×2 (20:58→20:59)
[2017-04-04 21:11] LABS: Basophils % (A) 0 %; CH 29.5; CHCM 32.8; Eosinophils % (A) 1 %; HCT 35.9 % (39.0-53.0); HDW 3.28; HGB 11.8 gm/dL (13.0-17.5); Hypochromasia Slight; Luc # (Auto) 0.11; Luc % (Auto) 3; Lymphocytes # (A) 0.5 k/uL (1.0-4.8); Lymphocytes % (A) 13 %; MCH 29.6 pg (25.0-35.0); MCHC 32.8 g/dL (31.0-37.0); MCV 90.1 fL (80.0-100.0); Mean Platelet Volume 8.1; Monocytes # (A) 0.4 k/uL (0-1.0); Monocytes % (A) 10 %; Neutrophils # (A) 2.8 k/uL (1.3-7.7); Neutrophils % (A) 73 %; RBC 3.99 m/uL (4.30-5.90); RDW 14.9 % (11.5-15.5); WBC 3.8 k/uL (3.8-10.6); WBC (Perox) 3.84
[2017-04-04 21:16] LABS: INR 1.1 (<1.2); Prothrombin Time 11.3 sec (9.0-12.0)
[2017-04-04 21:18] LABS: ALT 42 U/L (21-72); AST 26 U/L (17-59); Alkaline Phosphatase 86 U/L (38-126); Amylase 47 U/L (30-110); Anion Gap 2 mmol/L; Blood Urea Nitrogen 22 mg/dL (9-20); Calcium 8.4 mg/dL (8.4-10.2); Carbon Dioxide 28 mmol/L (22-30); Chloride 104 mmol/L (98-107); Glucose 169 mg/dL (74-99); Non-African American GFR(MDRD) >60 (>60 ml/min/1.73 sqM); Potassium 3.7 mmol/L (3.5-5.1); Sodium 134 mmol/L (137-145); Total Bilirubin 0.5 mg/dL (0.2-1.3); Total Protein 7.7 g/dL (6.3-8.2)
[2017-04-04 21:35] LABS: Partial Thromboplastin Time 21.6 sec (22.0-30.0)
[2017-04-04] MEDS ORDERED: HYDROmorphone 1 MG/ML 1 ML SYRINGE IVP STA (22:52)
--- NOTE | 2017-04-04 23:02 | CT ---
EXAMINATION TYPE: CT abdomen pelvis w con DATE OF EXAM: 04/04/2017 COMPARISON: 10/20/2016 HISTORY: Rectal bleeding today. CT DLP: 1685.1 mGycm Automated exposure control for dose reduction was used. TECHNIQUE: Helical acquisition of images was performed from the lung bases through the pelvis. CONTRAST: Performed without Oral Contrast and with IV Contrast, patient injected with 100 mL of Omnipaque 300. FINDINGS: Lung bases are clear of consolidation. There is no pleural effusion. There is mild subpleural interst itial density. There is a moderate amount of ascites fluid. Spleen is enlarged. Spleen measures 18 cm. Liver is some what irregular consistent with cirrhosis. Gallbladder wall is slightly thickened. Bile ducts are not dilated. There is no sign of a pancreatic mass. There is no adrenal mass. Kidneys have normal size and contour. There is no hydronephrosis. Bladder d istends smoothly. There is no evidence of a pelvic mass. There are some spondylotic changes in the nicolas mbar spine. Abdominal aorta is atheromatous. I see no focal bone destruction. Appendix is not seen. T here is no sign of appendicitis. IMPRESSION: CHANGES IN THE LIVER CONSISTENT WITH CIRRHOSIS. SPLENOMEGALY. THIS IS NOT CHANGED COMPARED TO OLD EXA M. THERE IS NEW MODERATE ASCITES FLUID. THERE IS MINIMAL GALLBLADDER WALL THICKENING. NO DILATED DUCT S. STABLE SMALL UMBILICAL HERNIA CONTAINS OMENTAL FAT. STABLE FIBROTIC CHANGES AT THE LUNG BASES.
[2017-04-04] MEDS ORDERED: ONDANSETRON 4 MG/2 ML VIAL IVP PRN (23:21)
[2017-04-04] MEDS ORDERED: NALOXONE 0.4 MG/ML 1 ML VIAL IV PRN (23:21)
[2017-04-04] MEDS ORDERED: ACETAMINOPHEN TAB 325 MG TAB PO PRN (23:21)
[2017-04-04] MEDS ORDERED: ARTIFICIAL TEARS-HYPROMELLOSE DROPS 15 ML BTL BOTH EYES PRN (23:24)
[2017-04-04] MEDS ORDERED: POLYETHYLENE GLYCOL 3350 17 GM POWD.PACK PO PRN (23:24)
[2017-04-04] MEDS ORDERED: SENNOSIDES 8.6 MG TAB PO PRN (23:24)
[2017-04-04] MEDS ORDERED: NITROGLYCERIN SL TABS 0.4 MG TAB SUBLINGUAL PRN (23:24)
[2017-04-05 00:59] VITALS: BMI 31.6
[2017-04-05] MEDS: PYRIDOSTIGMINE 60 MG TAB PO SCH ×6 (01:07→21:46)
[2017-04-05] MEDS: predniSONE 20 MG TAB PO SCH ×3 (01:40→21:47)
[2017-04-05] MEDS: MORPHINE SULFATE ER 15 MG TABLET PO SCH ×3 (01:40→21:48)
[2017-04-05] MEDS: HYDROmorphone 1 MG/ML 1 ML SYRINGE IV PRN (06:38)
[2017-04-05 07:23] LABS: Glucose,Whole Blood 219 mg/dL (75-99)
[2017-04-05 07:41] LABS: ALT 42 U/L (21-72); AST 25 U/L (17-59); Alkaline Phosphatase 67 U/L (38-126); Anion Gap 2 mmol/L; Blood Urea Nitrogen 19 mg/dL (9-20); Calcium 7.9 mg/dL (8.4-10.2); Carbon Dioxide 28 mmol/L (22-30); Chloride 103 mmol/L (98-107); Glucose 172 mg/dL (74-99); Non-African American GFR(MDRD) >60 (>60 ml/min/1.73 sqM); Sodium 133 mmol/L (137-145); Total Bilirubin 0.8 mg/dL (0.2-1.3)
[2017-04-05 07:56] LABS: Basophils % (A) 0 %; CH 30.2; CHCM 33.2; Eosinophils % (A) 0 %; HCT 35.2 % (39.0-53.0); HDW 3.19; HGB 11.4 gm/dL (13.0-17.5); Luc # (Auto) 0.04; Luc % (Auto) 2; Lymphocytes # (A) 0.4 k/uL (1.0-4.8); Lymphocytes % (A) 17 %; MCH 29.5 pg (25.0-35.0); MCHC 32.3 g/dL (31.0-37.0); MCV 91.2 fL (80.0-100.0); Mean Platelet Volume 7.7; Monocytes # (A) 0.2 k/uL (0-1.0); Monocytes % (A) 8 %; Neutrophils # (A) 1.7 k/uL (1.3-7.7); Neutrophils % (A) 74 %; RBC 3.86 m/uL (4.30-5.90); RDW 15.7 % (11.5-15.5); WBC 2.3 k/uL (3.8-10.6); WBC (Perox) 2.25
[2017-04-05] MEDS ORDERED: ENOXAPARIN 40 MG/0.4 ML SYRINGE SQ SCH (09:00)
[2017-04-05] MEDS ORDERED: predniSONE 20 MG TAB PO SCH (09:00)
[2017-04-05] MEDS ORDERED: MORPHINE SULFATE ER 15 MG TABLET PO SCH (09:00)
[2017-04-05] MEDS ORDERED: FAMOTIDINE 20 MG TAB PO SCH (09:00)
[2017-04-05] MEDS ORDERED: NON-FORMULARY DRUG (Ubidecarenone [Co Q-10] 100 MG) PO SCH (09:00)
[2017-04-05] MEDS: CYANOCOBALAMIN 500 MCG TAB PO SCH (09:50)
[2017-04-05] MEDS: ASPIRIN 325 MG TAB PO SCH ×2 (09:51→12:50)
[2017-04-05] MEDS: B COMPLEX-VIT C-VIT E-ZINC 1 EACH TAB PO SCH (09:52)
[2017-04-05] MEDS: ASCORBIC ACID 500 MG TAB PO SCH (09:52)
[2017-04-05] MEDS: DOCUSATE 100 MG CAP PO SCH ×2 (09:52→21:47)
[2017-04-05] MEDS: CALCIUM CARB-VIT D 500MG-200UN 1 EACH TAB PO SCH ×2 (09:53→21:51)
[2017-04-05] MEDS: FUROSEMIDE 40 MG TAB PO SCH (09:54)
[2017-04-05] MEDS: ISOSORBIDE DINITRATE 10 MG TAB PO SCH ×3 (09:54→21:46)
[2017-04-05] MEDS: FINASTERIDE 5 MG TAB PO SCH (09:54)
[2017-04-05] MEDS: MAGNESIUM OXIDE 400 MG TAB PO SCH (09:55)
[2017-04-05] MEDS: lamoTRIgine 25 MG TAB PO SCH ×2 (09:55→21:47)
[2017-04-05] MEDS: LOSARTAN 50 MG TAB PO SCH (09:55)
[2017-04-05] MEDS: PANTOPRAZOLE 40 MG/10 ML VIAL IV SCH (09:56)
[2017-04-05] MEDS: MELOXICAM 7.5 MG TAB PO SCH (09:56)
[2017-04-05] MEDS: POTASSIUM CHLORIDE ER 10 MEQ TAB.ER.PRT PO SCH ×2 (09:57→21:47)
[2017-04-05] MEDS: MULTIVITAMINS, THERA 1 EACH TAB PO SCH (09:57)
[2017-04-05] MEDS: SULFAMETHOX-TMP 800-160MG 1 EACH TAB PO SCH (09:59)
--- NOTE | 2017-04-05 10:31 | P.CONS ---
History of Present Illness - Reason for Consult Consult date: 04/05/17 GI bleed Requesting physician: Josr Osorio - History of Present Illness 71-year-old gentleman with a history of myasthenia gravis receives IVIG infusions at [facility] since December 2016, esophageal/gastric varices, thrombocytopenia, nonalcoholic liver cirrhosis, ID, diabetes mellitus, hypertension, hyperlipidemia, hypothyroidism. He presents with painless rectal bleeding. 2 days ago patient had increased amount of nonbloody diarrhea. Yesterday he thought he was going to have more diarrhea however he witnessed bright red blood per rectum multiple times without stool. Last bloody movement/ discharge was last night. Admission hemoglobin 11.8 presently 11.4. Platelet 51,000. INR 1.1. MCV 90. BUN 19. Creatinine 0.7. Denies excessive usage of aspirin and antiplatelet or NSAIDs. No alcohol. No history of hepatitis. Previous hemoglobin August-12/20/16 13-14 range. Platelets 106-124. Additionally he reports a 50 pound weight loss over the last several months with intermittent swelling to his lower extremities as well as his abdomen. No history of paracentesis. CT abdomen and pelvis with contrast reported liver consistent with cirrhosis. Splenomegaly. Moderate amount of ascites fluid. Bile ducts not dilated. No pancreatic mass. LFTs amylase lipase within normal limits. Albumin 2.5. EGD evaluation August 2016 for history of liver cirrhosis identified small esophageal and gastric varices without stigmata of bleeding and portal gastropathy. Last colonoscopy performed at the [place] several years ago possible polyp removal. Home medications include but not limited to prednisone twice daily, Zantac twice daily, Mestinon, MS Contin, meloxicam, Lasix 40 mg daily, enteric-coated full strength aspirin. Review of Systems Constitutional: Denies fever, chills, sweats, weight gain, or loss. HEENT: Negative for migraines, blurred vision or loss, earaches, drainage, tinnitus, oral mucosal lesions, dysphagia, or odynophagia. Cardiac: ID. Hypertension. Hyperlipidemia. CHF. Negative for chest pain, arrhythmias, or palpitation. Respiratory: Negative for shortness of breath, hemoptysis, cough, or sputum production. Gastrointestinal: See HPI for pertinent findings. Genitourinary: Negative for hematuria, urgency, frequency, polyuria, dysuria, or penile discharge. Musculoskeletal: Negative for muscle aches, swelling, arthritis, and arthralgias. Neurologic: Myasthenia gravis. Negative for stroke or TIA. Endocrine: Diabetes mellitus. Hypothyroidism. Skin: Negative for rash or itching. Psychiatric: Negative history for depression and anxiety All systems: negative (See HPI) Past Medical History Past Medical History: Asthma, Coronary Artery Disease (CAD), Heart Failure, COPD , CVA/TIA, Diabetes Mellitus, Eye Disorder, GERD/Reflux, Hearing Disorder / Deafness, Hyperlipidemia, Hypertension, Liver Disease, Memory Impairment, Myocardial Infarction (ID), Pneumonia, Prostate Disorder, Seizure Disorder, Sleep Apnea/CPAP/BIPAP, Thyroid Disorder Additional Past Medical History / Comment(s): Pt concerned over wt loss of 50# over past 2 months-states he has an apetite and is eating but losing wt, EYES "BURNED" IN SERVICE-(gas can blew up). HX ID X2; POSS CVA. hx ulcer, "MEMORY PROB R/T HX head injury" NEUROPATHY AVA FEET, CHRONIC BACK PAIN, occasional cervical pain, no. cpap, ON O2 2L NC AT Night & PRN. DIFF SWALLOWING, constipation, liver-cirrhosis, anemia, enlarged spleen, heart murmur, L cataract , seizures with last seizure-pt thinks last seizure July 2016-states he has "mini-mals-I go out and can't wake up". Last Myocardial Infarction Date:: 1989 History of Any Multi-Drug Resistant Organisms: None Reported Past Surgical History: Heart Catheterization, Hernia Repair, Orthopedic Surgery , Tonsillectomy Additional Past Surgical History / Comment(s): 08/09/16 EGD. Other surgical hx: past EGD/colonoscopy, RT GREAT TOE JOINT, RT SHOULDER rotator cuff repair. rt cataract, bilateral inguinal hernia repairs & hydrocele repair Past Anesthesia/Blood Transfusion Reactions: Motion Sickness, Postoperative Nausea & Vomiting (PONV) Additional Past Anesthesia/Blood Transfusion Reaction / Comm: no hx blood transfusion Past Psychological History: Depression Smoking Status: Former smoker Past Alcohol Use History: None Reported Additional Past Alcohol Use History / Comment(s): quit smoking approx 50 yrs ago ,smoked in -very short time and little amount Past Drug Use History: None Reported - Past Family History Mother Family Medical History: Liver Disease, Pneumonia Additional Family Medical History / Comment(s): alcoholism Father Family Medical History: Cancer Additional Family Medical History / Comment(s): Father had lung cancer with mets to brain. He was a nonsmoker but his spouse smoked in the house. Medications and Allergies Home Medications Medication Instructions Recorded Confirmed Type Artificial Tears-Hypromellose 2 drops BOTH EYES TID PRN 04/14/15 04/04/17 History [Artificial Tear Drops] Aspirin EC [Ecotrin] 325 mg PO DAILY 04/14/15 04/04/17 History Diltiazem Cd [Cardizem CD] 240 mg PO HS 04/14/15 04/04/17 History Finasteride [Proscar] 5 mg PO DAILY 04/14/15 04/04/17 History Furosemide [Lasix] 40 mg PO QAM 04/14/15 04/04/17 History Insulin Glargine [Lantus] 45 unit SQ HS 04/14/15 04/04/17 History Meloxicam 15 mg PO DAILY 04/14/15 04/04/17 History Pantoprazole Sodium 40 mg PO DAILY 04/14/15 04/04/17 History Potassium Chloride [Klor-Con 10] 10 meq PO BID 04/14/15 04/04/17 History Cyanocobalamin (Vitamin B-12) 2,000 mcg PO DAILY 07/24/16 04/04/17 History [Vitamin B-12] Vitamin B Complex 1 cap PO DAILY 07/24/16 04/04/17 History Nitroglycerin Sl Tabs [Nitrostat] 0.4 mg SUBLINGUAL Q5M PRN #50 tab 09/22/1609/16 Rx Ubidecarenone [Co Q-10] 100 mg PO DAILY 12/11/16 04/04/17 History levETIRAcetam [Keppra] 750 mg PO Q12HR #30 tab 12/14/16 04/04/17 Rx Ascorbic Acid [Vitamin C] 1,000 mg PO DAILY 04/04/17 04/04/17 History Calcium Carbonate/Vitamin D3 2 tab PO BID 04/04/17 04/04/17 History [Calcium 600-Vit D3 400 Caplet] Docusate [Colace] 100 mg PO BID 04/04/17 04/04/17 History Isosorbide Dinitrate 30 mg PO TID 04/04/17 04/04/17 History Losartan [Cozaar] 50 mg PO DAILY 04/04/17 04/04/17 History Magnesium Oxide [Mag-Ox] 250 mg PO DAILY 04/04/17 04/04/17 History Morphine Sulfate ER [Ms Contin 15 mg PO BID 04/04/17 04/04/17 History 15Mg] Multivitamins, Thera [Multivitamin 1 tab PO DAILY 04/04/17 04/04/17 History (formulary)] Polyethylene Glycol 3350 [Miralax] 17 gm PO TID PRN 04/04/17 04/04/17 History Pyridostigmine [place] [Mestinon] 60 mg PO Q4H 04/04/17 04/04/17 History Ranitidine HCl [Zantac] 150 mg PO BID 04/04/17 04/04/17 History Sennosides [Senna] 17.2 mg PO BID PRN 04/04/17 04/04/17 History Sulfamethox-Tmp 800-160Mg [Bactrim 1 tab PO MOWEFR 04/04/17 04/04/17 History DS 800-160 mg] lamoTRIgine [LaMICtal] 25 mg PO BID 04/04/17 04/04/17 History predniSONE 20 mg PO BID 04/04/17 04/04/17 History Allergies Allergy/AdvReac Type Severity Reaction Status Date / Time methylprednisolone acetate Allergy Severe Anaphylaxis Verified 04/04/17 21:25 [From Depo-Medrol] cephalexin [From Keflex] Allergy Rash/Hives Verified 04/04/17 21:25 duloxetine [From Cymbalta] AdvReac Intense Verified 04/04/17 21:25 Flushing gabapentin [From Neurontin] AdvReac Tremors Verified 04/04/17 21:25 polyethylene glycol AdvReac Confusion Verified 04/04/17 21:25 [From Golytely] polyethylene glycol 3350 AdvReac Confusion Verified 04/04/17 21:25 [From Golytely] potassium chloride AdvReac Confusion Verified 04/04/17 21:25 [From Golytely] pregabalin [From Lyrica] AdvReac Intense Verified 04/04/17 21:25 Flushing sodium [From Golytely] AdvReac Confusion Verified 04/04/17 21:25 sodium bicarbonate AdvReac Confusion Verified 04/04/17 21:25 [From Golytely] sodium chloride AdvReac Confusion Verified 04/04/17 21:25 [From Golytely] sodium sulfate AdvReac Confusion Verified 04/04/17 21:25 [From Golytely] sodium sulfate anhydrous AdvReac Confusion Verified 04/04/17 21:25 [From Golytely] Physical Exam Vitals: Vital Signs Temp Pulse Pulse Resp BP BP Pulse Ox 04/05/17 08:33 98.1 F 60 19 158/78 96 04/05/17 00:33 97.8 F 64 18 144/66 98 04/04/17 23:54 99.0 F 69 22 160/51 98 04/04/17 23:00 66 22 148/70 96 04/04/17 22:00 61 22 153/70 96 04/04/17 21:01 69 20 156/64 95 04/04/17 20:00 99.8 F H 84 20 137/70 97 Intake and Output 04/04/17 04/05/17 04/05/17 22:59 06:59 14:59 Intake Total 1327 Output Total 500 Balance 827 Intake: Oral 1327 Output: Urine 500 Other: Voiding Method Toilet # Voids 200 1 Weight 105.687 kg 108 kg General appearance: The patient is alert, oriented, in no acute distress. HET: Head is normocephalic and atraumatic. Pupils are equal and reactive. Oropharynx is clear without lesions. Neck: Supple without lymphadenopathy. Trachea midline. Heart: S1 S2. Regular rate and rhythm. Lungs: No crackles or wheezes are heard. Abdomen: Soft, distended with mild ascites not tense, nondistended with bowel sounds. No peritoneal signs. No palpable organomegaly or masses. Extremities: Normal skin color and turgor. No cyanosis, rash, ulceration, clubbing, or edema. Radial and pedal pulses are 2/4 bilaterally. Neurological: No focal deficits. Strength and sensation are grossly intact. Rectal: Nonthrombosed external tag. Suspect internal small palpable hemorrhoid. No blood on finger. No palpable masses. Results CBC & Chem 7: 04/05/17 06:54 04/05/17 06:54 Labs: Abnormal Lab Results - Last 24 Hours (Table) 04/04/17 04/04/17 04/04/17 Range/Units 20:45 20:45 20:45 WBC (3.8-10.6) k/uL RBC 3.99 L (4.30-5.90) m/uL Hgb 11.8 L (13.0-17.5) gm/dL Hct 35.9 L (39.0-53.0) % RDW (11.5-15.5) % Plt Count 72 L (150-450) k/uL Lymphocytes # 0.5 L (1.0-4.8) k/uL APTT 21.6 L (22.0-30.0) sec Sodium 134 L (137-145) mmol/L BUN 22 H (9-20) mg/dL Glucose 169 H (74-99) mg/dL POC Glucose (mg/dL) (75-99) mg/dL Calcium (8.4-10.2) mg/dL Albumin 2.8 L (3.5-5.0) g/dL 04/05/17 04/05/17 04/05/17 Range/Units 06:54 06:54 07:18 WBC 2.3 L (3.8-10.6) k/uL RBC 3.86 L (4.30-5.90) m/uL Hgb 11.4 L (13.0-17.5) gm/dL Hct 35.2 L (39.0-53.0) % RDW 15.7 H (11.5-15.5) % Plt Count 51 L (150-450) k/uL Lymphocytes # 0.4 L (1.0-4.8) k/uL APTT (22.0-30.0) sec Sodium 133 L (137-145) mmol/L BUN (9-20) mg/dL Glucose 172 H (74-99) mg/dL POC Glucose (mg/dL) 219 H (75-99) mg/dL Calcium 7.9 L (8.4-10.2) mg/dL Albumin 2.5 L (3.5-5.0) g/dL CT scan - abdomen: report reviewed (Reviewed by Dr. Wilcox) Assessment and Plan (1) GI bleed Narrative/Plan: Suspect perirectal hemorrhoidal in nature exacerbated by thrombocytopenia however colonic possible upper source cannot be entirely excluded. EGD August 2016 identified small esophageal and gastric varices without bleeding and portal gastropathy. Status: Acute (2) Ascites Narrative/Plan: Suspected underlying portal hypertension with history of liver cirrhosis without history of paracentesis Status: Acute (3) Liver cirrhosis Status: Acute (4) Myasthenia gravis Status: Acute (5) Splenomegaly Status: Acute (6) Thrombocytopenia Status: Chronic (7) Esophageal and gastric varices Status: Acute (8) Anemia Narrative/Plan: Acute blood loss component Status: Acute Plan: 1. Upon review of previous medical records and chemistries platelet count has decreased by 50% since December 2016. Possible combination of underlying liver disease platelet sequestration from splenomegaly as well as immunosuppression from myasthenia gravis medications could be contributing to his worsening thrombocytopenia. 2. Will obtain alpha-fetoprotein marker and hepatitis screen for review. Full liquid diet. Requested ultrasound of the abdomen to assess degree of ascites for possible paracentesis with full fluid analysis/cytology. 3. In regards to rectal bleeding and history of small esophageal gastric varices seen via EGD in August 2016 will discuss in further detail timing of inpatient EGD colonoscopy; patient may require platelet transfusion prior to endoscopic evaluation. Patient could benefit from paracentesis for comfort prior to endoscopic evaluation. 4. Protonix 40 mg IV daily. Continue with Lasix 40 mg daily. Will add Aldactone 50 mg daily. Will follow closely with you. Continue to monitor CBC/ BUN/creatinine daily. 5. Case discussed with interventional radiologist Dr. Hagan platelet transfusion will not be needed for paracentesis. Thank you for this kind referral and the opportunity to participate in the care of your patient. This consultation was discussed with Dr. Wilcox. The impression and plan of care have been directed as dictated.
[2017-04-05 11:43] LABS: Glucose,Whole Blood 319 mg/dL (75-99)
--- NOTE | 2017-04-05 13:08 | P.HPIM ---
History of Present Illness H&P Date: 04/05/17 Chief Complaint: Rectal bleeding Mr. Duke Sánchez is a 71-year-old male well-known to my practice who presented to [facility] emergency room with a chief complaint of rectal bleeding. Patient describes large amount of red blood from the rectum for several hours prior to presentation, he states that on the day before he was at [facility] receiving IVIG infusion for myasthenia gravis, after he came back he started having severe diarrhea and on the next day he started having severe rectal bleeding, he presented to emergency room at [facility], hemoglobin was 11.8 he was admitted to medical floor, for further evaluation and treatment. During the emergency room stay patient was complaining of mild diffuse pain in the abdomen he underwent a computed tomography scan of the abdomen and pelvis with contrast that revealed evidence of liver cirrhosis and splenomegaly with evidence of moderate ascites and small stable umbilical hernia. Past Medical History Past Medical History: Asthma, Coronary Artery Disease (CAD), Heart Failure, COPD , CVA/TIA, Diabetes Mellitus, Eye Disorder, GERD/Reflux, Hearing Disorder / Deafness, Hyperlipidemia, Hypertension, Liver Disease, Memory Impairment, Myocardial Infarction ([place]), Pneumonia, Prostate Disorder, Seizure Disorder, Sleep Apnea/CPAP/BIPAP, Thyroid Disorder Additional Past Medical History / Comment(s): Pt concerned over wt loss of 50# over past 2 months-states he has an apetite and is eating but losing wt, EYES "BURNED" IN SERVICE-(gas can blew up). HX TX X2; POSS CVA. hx ulcer, "MEMORY PROB R/T HX head injury" NEUROPATHY AVA FEET, CHRONIC BACK PAIN, occasional cervical pain, no. cpap, ON O2 2L [place] AT Night & PRN. DIFF SWALLOWING, constipation, liver-cirrhosis, anemia, enlarged spleen, heart murmur, L cataract , seizures with last seizure-pt thinks last seizure July 2016-states he has "mini-mals-I go out and can't wake up". Last Myocardial Infarction Date:: 1989 History of Any Multi-Drug Resistant Organisms: None Reported Past Surgical History: Heart Catheterization, Hernia Repair, Orthopedic Surgery , Tonsillectomy Additional Past Surgical History / Comment(s): 08/09/16 EGD. Other surgical hx: past EGD/colonoscopy, RT GREAT TOE JOINT, RT SHOULDER rotator cuff repair. rt cataract, bilateral inguinal hernia repairs & hydrocele repair Past Anesthesia/Blood Transfusion Reactions: Motion Sickness, Postoperative Nausea & Vomiting (PONV) Additional Past Anesthesia/Blood Transfusion Reaction / Comment(s): no hx blood transfusion Past Psychological History: Depression Smoking Status: Former smoker Past Alcohol Use History: None Reported Additional Past Alcohol Use History / Comment(s): quit smoking approx 50 yrs ago ,smoked in -very short time and little amount Past Drug Use History: None Reported - Past Family History Mother Family Medical History: Liver Disease, Pneumonia Additional Family Medical History / Comment(s): alcoholism Father Family Medical History: Cancer Additional Family Medical History / Comment(s): Father had lung cancer with mets to brain. He was a nonsmoker but his spouse smoked in the house. Medications and Allergies Home Medications Medication Instructions Recorded Confirmed Type Artificial Tears-Hypromellose 2 drops BOTH EYES TID PRN 04/14/15 04/04/17 History [Artificial Tear Drops] Aspirin EC [Ecotrin] 325 mg PO DAILY 04/14/15 04/04/17 History Diltiazem Cd [Cardizem CD] 240 mg PO HS 04/14/15 04/04/17 History Finasteride [Proscar] 5 mg PO DAILY 04/14/15 04/04/17 History Furosemide [Lasix] 40 mg PO QAM 04/14/15 04/04/17 History Insulin Glargine [Lantus] 45 unit SQ HS 04/14/15 04/04/17 History Meloxicam 15 mg PO DAILY 04/14/15 04/04/17 History Pantoprazole Sodium 40 mg PO DAILY 04/14/15 04/04/17 History Potassium Chloride [Klor-Con 10] 10 meq PO BID 04/14/15 04/04/17 History Cyanocobalamin (Vitamin B-12) 2,000 mcg PO DAILY 07/24/16 04/04/17 History [Vitamin B-12] Vitamin B Complex 1 cap PO DAILY 07/24/16 04/04/17 History Nitroglycerin Sl Tabs [Nitrostat] 0.4 mg SUBLINGUAL Q5M PRN #50 tab 09/22/1609/16 Rx Ubidecarenone [Co Q-10] 100 mg PO DAILY 12/11/16 04/04/17 History levETIRAcetam [Keppra] 750 mg PO Q12HR #30 tab 12/14/16 04/04/17 Rx Ascorbic Acid [Vitamin C] 1,000 mg PO DAILY 04/04/17 04/04/17 History Calcium Carbonate/Vitamin D3 2 tab PO BID 04/04/17 04/04/17 History [Calcium 600-Vit D3 400 Caplet] Docusate [Colace] 100 mg PO BID 04/04/17 04/04/17 History Isosorbide Dinitrate 30 mg PO TID 04/04/17 04/04/17 History Losartan [Cozaar] 50 mg PO DAILY 04/04/17 04/04/17 History Magnesium Oxide [Mag-Ox] 250 mg PO DAILY 04/04/17 04/04/17 History Morphine Sulfate ER [Ms Contin 15 mg PO BID 04/04/17 04/04/17 History 15Mg] Multivitamins, Thera [Multivitamin 1 tab PO DAILY 04/04/17 04/04/17 History (formulary)] Polyethylene Glycol 3350 [Miralax] 17 gm PO TID PRN 04/04/17 04/04/17 History Pyridostigmine [place] [Mestinon] 60 mg PO Q4H 04/04/17 04/04/17 History Ranitidine HCl [Zantac] 150 mg PO BID 04/04/17 04/04/17 History Sennosides [Senna] 17.2 mg PO BID PRN 04/04/17 04/04/17 History Sulfamethox-Tmp 800-160Mg [Bactrim 1 tab PO MOWEFR 04/04/17 04/04/17 History DS 800-160 mg] lamoTRIgine [LaMICtal] 25 mg PO BID 04/04/17 04/04/17 History predniSONE 20 mg PO BID 04/04/17 04/04/17 History Allergies Allergy/AdvReac Type Severity Reaction Status Date / Time methylprednisolone acetate Allergy Severe Anaphylaxis Verified 04/04/17 21:25 [From Depo-Medrol] cephalexin [From Keflex] Allergy Rash/Hives Verified 04/04/17 21:25 duloxetine [From Cymbalta] AdvReac Intense Verified 04/04/17 21:25 Flushing gabapentin [From Neurontin] AdvReac Tremors Verified 04/04/17 21:25 polyethylene glycol AdvReac Confusion Verified 04/04/17 21:25 [From Golytely] polyethylene glycol 3350 AdvReac Confusion Verified 04/04/17 21:25 [From Golytely] potassium chloride AdvReac Confusion Verified 04/04/17 21:25 [From Golytely] pregabalin [From Lyrica] AdvReac Intense Verified 04/04/17 21:25 Flushing sodium [From Golytely] AdvReac Confusion Verified 04/04/17 21:25 sodium bicarbonate AdvReac Confusion Verified 04/04/17 21:25 [From Golytely] sodium chloride AdvReac Confusion Verified 04/04/17 21:25 [From Golytely] sodium sulfate AdvReac Confusion Verified 04/04/17 21:25 [From Golytely] sodium sulfate anhydrous AdvReac Confusion Verified 04/04/17 21:25 [From Golytely] Physical Exam Vitals: Vital Signs Temp Pulse Pulse Resp BP BP Pulse Ox 04/05/17 10:26 60 04/05/17 08:33 98.1 F 60 19 158/78 96 04/05/17 00:33 97.8 F 64 18 144/66 98 04/04/17 23:54 99.0 F 69 22 160/51 98 04/04/17 23:00 66 22 148/70 96 04/04/17 22:00 61 22 153/70 96 04/04/17 21:01 69 20 156/64 95 04/04/17 20:00 99.8 F H 84 20 137/70 97 Intake and Output 04/04/17 04/05/17 04/05/17 22:59 06:59 14:59 Intake Total 1327 Output Total 500 Balance 827 Intake: Oral 1327 Output: Urine 500 Other: Voiding Method Toilet Toilet Urinal # Voids 200 1 Weight 105.687 kg 108 kg In general patient is alert and oriented in no apparent distress HEENT head normocephalic and atraumatic Neck is supple no JVD no goiter no lymphadenopathy Chest exam reveals a few scattered crackles no wheezing Cardiac exam reveals regular heart sounds no gallops no murmurs Abdomen is soft nontender no organomegaly with normal bowel sounds, abdomen is not tense, there is clinical evidence of mild synovitis Extremity exam reveals 2+ edema with chronic stasis changes and superficial laceration with scab on the left lower pretibial area Results CBC & Chem 7: 04/05/17 06:54 04/05/17 06:54 Labs: Abnormal Lab Results - Last 24 Hours (Table) 04/04/17 04/04/17 04/04/17 Range/Units 20:45 20:45 20:45 WBC (3.8-10.6) k/uL RBC 3.99 L (4.30-5.90) m/uL Hgb 11.8 L (13.0-17.5) gm/dL Hct 35.9 L (39.0-53.0) % RDW (11.5-15.5) % Plt Count 72 L (150-450) k/uL Lymphocytes # 0.5 L (1.0-4.8) k/uL APTT 21.6 L (22.0-30.0) sec Sodium 134 L (137-145) mmol/L BUN 22 H (9-20) mg/dL Glucose 169 H (74-99) mg/dL POC Glucose (mg/dL) (75-99) mg/dL Calcium (8.4-10.2) mg/dL Albumin 2.8 L (3.5-5.0) g/dL 04/05/17 04/05/17 04/05/17 Range/Units 06:54 06:54 07:18 WBC 2.3 L (3.8-10.6) k/uL RBC 3.86 L (4.30-5.90) m/uL Hgb 11.4 L (13.0-17.5) gm/dL Hct 35.2 L (39.0-53.0) % RDW 15.7 H (11.5-15.5) % Plt Count 51 L (150-450) k/uL Lymphocytes # 0.4 L (1.0-4.8) k/uL APTT (22.0-30.0) sec Sodium 133 L (137-145) mmol/L BUN (9-20) mg/dL Glucose 172 H (74-99) mg/dL POC Glucose (mg/dL) 219 H (75-99) mg/dL Calcium 7.9 L (8.4-10.2) mg/dL Albumin 2.5 L (3.5-5.0) g/dL 04/05/17 Range/Units 11:39 WBC (3.8-10.6) k/uL RBC (4.30-5.90) m/uL Hgb (13.0-17.5) gm/dL Hct (39.0-53.0) % RDW (11.5-15.5) % Plt Count (150-450) k/uL Lymphocytes # (1.0-4.8) k/uL APTT (22.0-30.0) sec Sodium (137-145) mmol/L BUN (9-20) mg/dL Glucose (74-99) mg/dL POC Glucose (mg/dL) 319 H (75-99) mg/dL Calcium (8.4-10.2) mg/dL Albumin (3.5-5.0) g/dL Thrombosis Risk Factor Assmnt - Choose All That Apply Any of the Below Risk Factors Present?: Yes Each Factor Represents 1 point: Abnormal pulmonary function (COPD), Obesity ( BMI >25), Swollen legs (current) Other Risk Factors: Yes Each Risk Factor Represents 2 Points: Age 61-74 years Other congenital or acquired thrombophilia - If yes, enter type in comment: No Thrombosis Risk Factor Assessment Total Risk Factor Score: 5 Thrombosis Risk Factor Assessment Level: High Risk Assessment and Plan Plan: #1 gastrointestinal bleeding likely lower GI tract bleeding, per patient last colon[facility] was done [facility] ago #2 evidence of liver cirrhosis with ascites, patient had an EGD in August 2016 that revealed small esophageal and gastric paralysis without bleeding at that time #3 thrombocytopenia, platelet count on presentation 72,000 likely related to medication and splenomegaly #4 underlying history of asthenia gravis #5 anemia At this time patient is admitted to medical floor will monitor hemoglobin closely. Gastroenterology consultation was requested for possible EGD and colonoscopy will follow closely
--- NOTE | 2017-04-05 13:15 | US ---
EXAMINATION TYPE: US abdomen limited DATE OF EXAM: 04/05/2017 COMPARISON: NONE CLINICAL HISTORY: ascites evaluation for paracentesis. Mild to moderate ascites noted. IMPRESSION: Ascites is present.
[2017-04-05] MEDS: INSULIN LISPRO (humaLOG) 300 UNIT/3 ML VIAL SQ SCH ×3 (13:21→21:50)
[2017-04-05 13:38] LABS: Hemoglobin A1C 6.8 % (4.2-6.1)
[2017-04-05 17:07] LABS: Glucose,Whole Blood 226 mg/dL (75-99)
[2017-04-05] MEDS: SPIRONOLACTONE 25 MG TAB PO SCH (17:18)
[2017-04-05 20:21] LABS: Glucose,Whole Blood 228 mg/dL (75-99)
[2017-04-05] MEDS: DILTIAZEM CD 240 MG CAP.ER.24H PO SCH (21:47)
[2017-04-05] MEDS: INSULIN GLARGINE 100 UNIT/ML 10 ML VIAL SQ SCH (21:47)
[2017-04-06] MEDS: PYRIDOSTIGMINE 60 MG TAB PO SCH ×6 (01:25→21:31)
[2017-04-06 07:14] LABS: Glucose,Whole Blood 139 mg/dL (75-99)
[2017-04-06] MEDS: INSULIN LISPRO (humaLOG) 300 UNIT/3 ML VIAL SQ SCH ×4 (07:32→21:32)
[2017-04-06] MEDS: predniSONE 20 MG TAB PO SCH ×2 (07:37→21:33)
[2017-04-06] MEDS: SPIRONOLACTONE 25 MG TAB PO SCH (07:37)
[2017-04-06] MEDS: PANTOPRAZOLE 40 MG/10 ML VIAL IV SCH (07:37)
[2017-04-06] MEDS: CYANOCOBALAMIN 500 MCG TAB PO SCH ×2 (07:38→07:45)
[2017-04-06] MEDS: MULTIVITAMINS, THERA 1 EACH TAB PO SCH (07:39)
[2017-04-06] MEDS: B COMPLEX-VIT C-VIT E-ZINC 1 EACH TAB PO SCH (07:39)
[2017-04-06] MEDS: ASCORBIC ACID 500 MG TAB PO SCH (07:39)
[2017-04-06] MEDS: POTASSIUM CHLORIDE ER 10 MEQ TAB.ER.PRT PO SCH ×2 (07:39→21:33)
[2017-04-06] MEDS: lamoTRIgine 25 MG TAB PO SCH ×2 (07:39→21:33)
[2017-04-06] MEDS: MELOXICAM 7.5 MG TAB PO SCH (07:40)
[2017-04-06] MEDS: FINASTERIDE 5 MG TAB PO SCH (07:40)
[2017-04-06 07:43] LABS: Anisocytosis Slight; Basophils % (A) 0 %; CH 30.3; CHCM 32.7; Eosinophils % (A) 0 %; HCT 38.9 % (39.0-53.0); HDW 3.15; HGB 12.2 gm/dL (13.0-17.5); Hypochromasia Slight; Luc # (Auto) 0.08; Luc % (Auto) 2; Lymphocytes # (A) 0.7 k/uL (1.0-4.8); Lymphocytes % (A) 17 %; MCH 29.3 pg (25.0-35.0); MCHC 31.5 g/dL (31.0-37.0); MCV 93.1 fL (80.0-100.0); Mean Platelet Volume 7.1; Monocytes # (A) 0.3 k/uL (0-1.0); Monocytes % (A) 7 %; Neutrophils % (A) 73 %; RBC 4.18 m/uL (4.30-5.90); RDW 16.2 % (11.5-15.5); WBC 4.1 k/uL (3.8-10.6); WBC (Perox) 4.28
[2017-04-06] MEDS: FUROSEMIDE 40 MG TAB PO SCH (07:43)
[2017-04-06] MEDS: ISOSORBIDE DINITRATE 10 MG TAB PO SCH ×3 (07:44→21:33)
[2017-04-06] MEDS: LOSARTAN 50 MG TAB PO SCH (07:44)
[2017-04-06] MEDS: MAGNESIUM OXIDE 400 MG TAB PO SCH (07:44)
[2017-04-06] MEDS: DOCUSATE 100 MG CAP PO SCH ×2 (07:46→21:32)
[2017-04-06] MEDS: CALCIUM CARB-VIT D 500MG-200UN 1 EACH TAB PO SCH ×2 (07:46→21:32)
[2017-04-06] MEDS: MORPHINE SULFATE ER 15 MG TABLET PO SCH ×2 (07:49→21:31)
[2017-04-06 07:59] LABS: Anion Gap 4 mmol/L; Blood Urea Nitrogen 17 mg/dL (9-20); Calcium 8.9 mg/dL (8.4-10.2); Carbon Dioxide 23 mmol/L (22-30); Chloride 106 mmol/L (98-107); Glucose 125 mg/dL (74-99); Non-African American GFR(MDRD) >60 (>60 ml/min/1.73 sqM); Potassium 4.5 mmol/L (3.5-5.1); Sodium 133 mmol/L (137-145)
--- NOTE | 2017-04-06 10:16 | P.PN ---
Subjective Progress Note Date: 04/06/17 Principal diagnosis: Gi bleed hx of cirrhosis 71-year-old gentleman with a history of myasthenia gravis IVIG infusions, chronic prednisone usage, nonalcoholic liver cirrhosis, gastric and esophageal varices, presents with rectal bleeding. No recurrence of bleeding since admission. Diagnostic paracentesis scheduled today. Platelet 64,000. White count 4.1. Hemoglobin 12.2. BUN 17. Creatinine 0.7. Objective - Vital Signs Vital signs: Vital Signs Temp 97.0 F L 04/06/17 07:00 Pulse 60 04/06/17 07:00 Resp 16 04/06/17 07:00 BP 150/66 04/06/17 07:00 Pulse Ox 97 04/06/17 07:00 Intake & Output 04/05/17 04/06/17 04/06/17 18:59 06:59 18:59 Intake Total 1327 590 Output Total 500 750 Balance 827 -160 Intake: Oral 1327 590 Output: Urine 500 750 Other: Voiding Method Toilet Toilet Toilet Urinal Urinal Urinal # Voids 2 1 # Bowel Movements 1 - Exam General appearance: The patient is alert, oriented, in no acute distress. HET: Head is normocephalic and atraumatic. Pupils are equal and reactive. Oropharynx is clear without lesions. Neck: Supple without lymphadenopathy. Trachea midline. Heart: S1 S2. Regular rate and rhythm. Lungs: No crackles or wheezes are heard. Abdomen: Soft, mildly bloated with ascites with bowel sounds. No peritoneal signs. No palpable organomegaly or masses. Extremities: +2 bilateral lower extremity edema. Neurological: No focal deficits. Strength and sensation are grossly intact. - Labs CBC & Chem 7: 04/06/17 07:10 04/06/17 07:10 Labs: Abnormal Lab Results - Last 24 Hours (Table) 04/05/17 04/05/17 04/05/17 Range/Units 06:54 11:39 17:04 RBC (4.30-5.90) m/uL Hgb (13.0-17.5) gm/dL Hct (39.0-53.0) % RDW (11.5-15.5) % Plt Count (150-450) k/uL Lymphocytes # (1.0-4.8) k/uL Sodium (137-145) mmol/L Glucose (74-99) mg/dL POC Glucose (mg/dL) 319 H 226 H (75-99) mg/dL Hemoglobin A1c 6.8 H (4.2-6.1) % 04/05/17 04/06/17 04/06/17 Range/Units 20:19 07:10 07:10 RBC 4.18 L (4.30-5.90) m/uL Hgb 12.2 L (13.0-17.5) gm/dL Hct 38.9 L (39.0-53.0) % RDW 16.2 H (11.5-15.5) % Plt Count 64 L (150-450) k/uL Lymphocytes # 0.7 L (1.0-4.8) k/uL Sodium 133 L (137-145) mmol/L Glucose 125 H (74-99) mg/dL POC Glucose (mg/dL) 228 H (75-99) mg/dL Hemoglobin A1c (4.2-6.1) % 04/06/17 Range/Units 07:13 RBC (4.30-5.90) m/uL Hgb (13.0-17.5) gm/dL Hct (39.0-53.0) % RDW (11.5-15.5) % Plt Count (150-450) k/uL Lymphocytes # (1.0-4.8) k/uL Sodium (137-145) mmol/L Glucose (74-99) mg/dL POC Glucose (mg/dL) 139 H (75-99) mg/dL Hemoglobin A1c (4.2-6.1) % Assessment and Plan (1) GI bleed Narrative/Plan: Suspect perirectal hemorrhoidal in nature exacerbated by thrombocytopenia however colonic possible upper source cannot be entirely excluded. EGD August 2016 identified small esophageal and gastric varices without bleeding and portal gastropathy. Status: Acute (2) Ascites Narrative/Plan: Suspected underlying portal hypertension with history of liver cirrhosis without history of paracentesis Status: Acute (3) Liver cirrhosis Status: Acute (4) Myasthenia gravis Status: Acute (5) Splenomegaly Status: Acute (6) Thrombocytopenia Status: Chronic (7) Esophageal and gastric varices Status: Acute (8) Anemia Narrative/Plan: Acute blood loss component Status: Acute Plan: 1. Diagnostic paracentesis today. Continue diuretic therapy. 2. We'll proceed with EGD colonoscopy tomorrow afternoon for evaluation of rectal bleeding and re-surveillance epigastric/gastric varices. Dr. Wilcox reviewed CBC this morning; platelet transfusion prior to endoscopic evaluation not indicated at this time. The chilling hood operator has discussed the risks, benefits and alternative therapies for the above-mentioned procedure and for both sedation/analgesia as well as necessary blood product administration, if indicated, as they pertain to this patient. The patient has indicated understanding and acceptance of the risks and procedures discussed. Assessment and plan of care discussed with Dr. Wilcox.
[2017-04-06] MEDS ORDERED: BISACODYL 5 MG TABLET.DR PO STA (10:17)
--- NOTE | 2017-04-06 10:37 | P.PN ---
Subjective Progress Note Date: 04/06/17 Principal diagnosis: Mr. Duke Sánchez is a 71-year-old male well-known to my practice who presented to [facility] emergency room with a chief complaint of rectal bleeding. Patient describes large amount of red blood from the rectum for several hours prior to presentation, he states that on the day before he was at [facility] receiving IVIG infusion for myasthenia gravis, after he came back he started having severe diarrhea and on the next day he started having severe rectal bleeding, he presented to emergency room at [facility], hemoglobin was 11.8 he was admitted to medical floor, for further evaluation and treatment. During the emergency room stay patient was complaining of mild diffuse pain in the abdomen he underwent a computed tomography scan of the abdomen and pelvis with contrast that revealed evidence of liver cirrhosis and splenomegaly with evidence of moderate ascites and small stable umbilical hernia. 04/06/2017 patient is still reporting some fluid in his abdomen as well as shortness of breath. Also having some lower extremity edema. He did have a hard stool yesterday evening and this morning with no blood present. He denies any chest pain. Denies any nausea or vomiting. Denies any burning with urination. Objective - Vital Signs Vital signs: Vital Signs Temp 97.0 F L 04/06/17 07:00 Pulse 60 04/06/17 07:00 Resp 16 04/06/17 07:00 BP 150/66 04/06/17 07:00 Pulse Ox 97 04/06/17 07:00 Intake & Output 04/05/17 04/06/17 04/06/17 18:59 06:59 18:59 Intake Total 1327 590 Output Total 500 750 Balance 827 -160 Intake: Oral 1327 590 Output: Urine 500 750 Other: Voiding Method Toilet Toilet Toilet Urinal Urinal Urinal # Voids 2 1 # Bowel Movements 1 - Exam Head normocephalic Neck supple Lungs clear to auscultation bilaterally no wheezing or crackles Heart regular rate and rhythm S1-S2, no rub or gallop Abdomen is soft nontender nondistended positive bowel sounds fluid wave present Extremities edema bilateral lower extremities Neuro alert and orientated to 3 - Labs CBC & Chem 7: 04/06/17 07:10 04/06/17 07:10 Labs: Abnormal Lab Results - Last 24 Hours (Table) 04/05/17 04/05/17 04/05/17 Range/Units 06:54 11:39 17:04 RBC (4.30-5.90) m/uL Hgb (13.0-17.5) gm/dL Hct (39.0-53.0) % RDW (11.5-15.5) % Plt Count (150-450) k/uL Lymphocytes # (1.0-4.8) k/uL Sodium (137-145) mmol/L Glucose (74-99) mg/dL POC Glucose (mg/dL) 319 H 226 H (75-99) mg/dL Hemoglobin A1c 6.8 H (4.2-6.1) % 04/05/17 04/06/17 04/06/17 Range/Units 20:19 07:10 07:10 RBC 4.18 L (4.30-5.90) m/uL Hgb 12.2 L (13.0-17.5) gm/dL Hct 38.9 L (39.0-53.0) % RDW 16.2 H (11.5-15.5) % Plt Count 64 L (150-450) k/uL Lymphocytes # 0.7 L (1.0-4.8) k/uL Sodium 133 L (137-145) mmol/L Glucose 125 H (74-99) mg/dL POC Glucose (mg/dL) 228 H (75-99) mg/dL Hemoglobin A1c (4.2-6.1) % 04/06/17 Range/Units 07:13 RBC (4.30-5.90) m/uL Hgb (13.0-17.5) gm/dL Hct (39.0-53.0) % RDW (11.5-15.5) % Plt Count (150-450) k/uL Lymphocytes # (1.0-4.8) k/uL Sodium (137-145) mmol/L Glucose (74-99) mg/dL POC Glucose (mg/dL) 139 H (75-99) mg/dL Hemoglobin A1c (4.2-6.1) % Assessment and Plan Plan: 1. Acute GI bleed: Likely secondary to perirectal hemorrhoids exacerbated by thrombocytopenia. EGD August 2016 identified small esophageal and gastric varices without bleeding and portal gastropathy. Bleeding has resolved. Hemoglobin 12.2. GI service is following. Discussed case with GI service. Patient scheduled for EGD and colonoscopy tomorrow 2. Acute blood loss anemia secondary to GI bleed. Hemoglobin is stable. 3. Liver cirrhosis with abdominal ascites with suspected underlying portal hypertension. Patient is scheduled for paracentesis today. Cultures have been ordered of the fluid 4. Thrombocytopenia likely secondary to hepatosplenomegaly and medications. Platelet count is up to 64. 5. History of myasthenia gravis 6. History of esophageal and gastric varices. Patient is scheduled for EGD tomorrow 7. Constipation continue Colace I performed an examination of the patient and discussed their management with the physician Manager Of Selection And Assessment. I have reviewed the Physician Manager Of Selection And Assessment's notes and agree with the documented findings and plan of care
[2017-04-06] MEDS ORDERED: MINERAL OIL-WHITE PETROLATUM 120 GM JAR TOPICAL PRN (10:40)
[2017-04-06 11:14] LABS: Glucose,Whole Blood 156 mg/dL (75-99)
[2017-04-06] MEDS ORDERED: MAGNESIUM CITRATE 296 ML BOTTLE PO ONE (14:00)
--- NOTE | 2017-04-06 15:01 | US ---
EXAMINATION TYPE: US paracentesis abd w/image DATE OF EXAM: 04/06/2017 COMPARISON: NONE HISTORY: Ascites. PROCEDURE: Maximal barrier technique was utilized. The skin overlying a suitable pocket of fluid was localized with ultrasound and the overlying skin was prepped and draped. Ultrasound was utilized with sterile technique. Lidocaine was used for local anesthesia and a skin damaris made with a scalpel. Catheter 5F w as advanced under direct ultrasound guidance into a suitable pocket of fluid and approximately 0.065 liters of serous fluid were removed. Catheter was withdrawn and hemostasis achieved. There is no im mediate complication; the patient is discharged in stable condition. IMPRESSION: STATUS POST ULTRASOUND GUIDED PARACENTESIS FOR DIAGNOSTIC PURPOSES OF ASCITES. THIS PRO CEDURE WAS PERFORMED BY THE UNDERSIGNED.
[2017-04-06] MEDS: HYDROmorphone 1 MG/ML 1 ML SYRINGE IV PRN (15:12)
[2017-04-06 16:55] LABS: RBC, Body Fluid 172 /uL
[2017-04-06 17:10] LABS: Glucose,Whole Blood 133 mg/dL (75-99)
[2017-04-06] MEDS: INSULIN GLARGINE 100 UNIT/ML 10 ML VIAL SQ SCH (21:31)
[2017-04-06 21:32] LABS: Glucose,Whole Blood 120 mg/dL (75-99)
[2017-04-06] MEDS: DILTIAZEM CD 240 MG CAP.ER.24H PO SCH (21:32)
[2017-04-07 00:59] LABS: Glucose, BF Source Ascites
[2017-04-07] MEDS: PYRIDOSTIGMINE 60 MG TAB PO SCH ×6 (03:06→21:52)
[2017-04-07 07:07] LABS: Glucose,Whole Blood 96 mg/dL (75-99)
[2017-04-07] MEDS: INSULIN LISPRO (humaLOG) 300 UNIT/3 ML VIAL SQ SCH ×4 (07:41→21:50)
[2017-04-07 07:52] LABS: Basophils % (A) 0 %; CH 29.4; CHCM 31.9; Eosinophils % (A) 0 %; HCT 38.2 % (39.0-53.0); HDW 3.37; HGB 12.4 gm/dL (13.0-17.5); Hypochromasia Moderate; Luc # (Auto) 0.08; Luc % (Auto) 3; Lymphocytes # (A) 0.7 k/uL (1.0-4.8); Lymphocytes % (A) 21 %; MCH 29.8 pg (25.0-35.0); MCHC 32.3 g/dL (31.0-37.0); MCV 92.2 fL (80.0-100.0); Monocytes # (A) 0.2 k/uL (0-1.0); Monocytes % (A) 6 %; Neutrophils # (A) 2.3 k/uL (1.3-7.7); Neutrophils % (A) 70 %; RBC 4.15 m/uL (4.30-5.90); RDW 15.1 % (11.5-15.5); WBC 3.3 k/uL (3.8-10.6); WBC (Perox) 3.67
[2017-04-07] MEDS: ISOSORBIDE DINITRATE 10 MG TAB PO SCH ×3 (08:09→21:52)
[2017-04-07] MEDS: CALCIUM CARB-VIT D 500MG-200UN 1 EACH TAB PO SCH ×2 (08:12→21:50)
[2017-04-07] MEDS: B COMPLEX-VIT C-VIT E-ZINC 1 EACH TAB PO SCH (08:12)
[2017-04-07] MEDS: ASCORBIC ACID 500 MG TAB PO SCH (08:12)
[2017-04-07] MEDS: DOCUSATE 100 MG CAP PO SCH ×2 (08:13→21:50)
[2017-04-07] MEDS: FINASTERIDE 5 MG TAB PO SCH (08:13)
[2017-04-07] MEDS: MULTIVITAMINS, THERA 1 EACH TAB PO SCH (08:13)
[2017-04-07] MEDS: MAGNESIUM OXIDE 400 MG TAB PO SCH (08:13)
[2017-04-07] MEDS: POTASSIUM CHLORIDE ER 10 MEQ TAB.ER.PRT PO SCH ×2 (08:13→21:50)
[2017-04-07] MEDS: SULFAMETHOX-TMP 800-160MG 1 EACH TAB PO SCH (08:14)
[2017-04-07 08:16] LABS: ALT 44 U/L (21-72); AST 28 U/L (17-59); Alkaline Phosphatase 54 U/L (38-126); Anion Gap 6 mmol/L; Blood Urea Nitrogen 23 mg/dL (9-20); Calcium 8.6 mg/dL (8.4-10.2); Carbon Dioxide 23 mmol/L (22-30); Chloride 105 mmol/L (98-107); Glucose 78 mg/dL (74-99); Non-African American GFR(MDRD) >60 (>60 ml/min/1.73 sqM); Sodium 134 mmol/L (137-145); Total Bilirubin 0.8 mg/dL (0.2-1.3); Total Protein 7.2 g/dL (6.3-8.2)
[2017-04-07] MEDS: PANTOPRAZOLE 40 MG/10 ML VIAL IV SCH (08:17)
[2017-04-07] MEDS: LOSARTAN 50 MG TAB PO SCH ×2 (08:18→08:38)
[2017-04-07] MEDS: lamoTRIgine 25 MG TAB PO SCH ×2 (08:18→21:51)
[2017-04-07] MEDS: predniSONE 20 MG TAB PO SCH ×3 (08:18→21:50)
[2017-04-07] MEDS: FUROSEMIDE 40 MG TAB PO SCH (08:18)
[2017-04-07] MEDS: SPIRONOLACTONE 25 MG TAB PO SCH ×2 (08:18→08:38)
[2017-04-07] MEDS: MORPHINE SULFATE ER 15 MG TABLET PO SCH ×2 (08:19→20:19)
[2017-04-07 12:03] LABS: Glucose,Whole Blood 77 mg/dL (75-99)
[2017-04-07] MEDS ORDERED: IV FLUID CONTINUATION 1,000 ML IV ONE (13:09)
[2017-04-07] MEDS ORDERED: PROPOFOL 10 MG/ML 20 ML VIAL IV ONE (13:16)
--- NOTE | 2017-04-07 13:49 | P.PCN ---
Date of Procedure: 04/07/17 Procedure(s) Performed: Procedures: 1. Esophagogastroduodenoscopy. 2. Total colonoscopy. Preoperative diagnosis: GI bleeding. Postoperative diagnosis: 1. Lisbeth esophagitis. 2. Small distal esophageal and gastric varices without stigmata of bleeding. 3. Grade 2 internal hemorrhoids not bleeding at the time of this exam, otherwise, colonoscopy to the cecum reveals poor preparation but no obvious pathology or bleeding. Preparation: GoLYTELY prep. Sedation: Was provided by anesthesia. Brief clinical history: The patient is a 71-year-old male with history of myasthenia gravis receives IVIG infusions at [facility] since December 2016 , esophageal/gastric varices, thrombocytopenia, nonalcoholic liver cirrhosis, [place] , diabetes mellitus, hypertension, hyperlipidemia, hypothyroidism. He presents with painless rectal bleeding. 2 days prior to admission the patient had increased amount of nonbloody diarrhea. The day prior to admission he thought he was going to have more diarrhea however he witnessed bright red blood per rectum multiple times without stool. Last bloody movement/discharge was last night. Admission hemoglobin 11.8 presently 11.4. Platelet 51,000. INR 1.1. MCV 90. BUN 19. Creatinine 0.7. Denies excessive usage of aspirin and antiplatelet or NSAIDs. No alcohol. No history of hepatitis. Previous hemoglobin August-12/20/16 13-14 range. Platelets 106-124. Additionally he reports a 50 pound weight loss over the last several months with intermittent swelling to his lower extremities as well as his abdomen. No history of paracentesis. CT of the abdomen and pelvis with contrast reported liver consistent with cirrhosis. Splenomegaly. Moderate amount of ascites fluid. Bile ducts not dilated. No pancreatic mass.LFTs amylase lipase within normal limits. Albumin 2.5. EGD evaluation August 2016 for history of liver cirrhosis identified small esophageal and gastric varices without stigmata of bleeding and portal gastropathy. Last colonoscopy performed at the [facility] several years ago possible polyp removal. Home medications include but not limited to prednisone twice daily, Zantac twice daily, Mestinon, MS Contin, meloxicam, Lasix 40 mg daily, enteric-coated full strength aspirin. Other details are summarized in the history and physical and dictated consultations and progress notes. This evaluation is to assess for a source of GI bleeding and to follow up on his gastric and esophageal varices. Procedure: With the patient on his left lateral decubitus position and after informed consent and adequate sedation, I passed the Olympus-GIF 160 video upper endoscope through the cricopharyngeus down the esophagus. GE junction was around 42-43 cm from the incisors. The endoscope was then passed into the stomach which was insufflated with air and inspected in detail including the retroflex view in the cardia. Finally the endoscope was passed to the pylorus into the duodenum. Pyloric channel, duodenal bulb, post bulbar area and descending duodenum appeared within normal limits. The stomach showed minimal mottling and erythema and other mucosal changes of portal gastropathy but there was no ulcers or active bleeding. I noted small gastric varices in the fundus with no evidence or stigmata of bleeding. The esophagus did not show any erosions, ulcers, strictures or Cavanaugh's esophagus. Small short columns of varices without stigmata of bleeding in the distal esophagus. Also noted in the esophagus where scattered sticky white exudates consistent with Lisbeth esophagitis. The endoscope was withdrawn then I proceeded with the colonoscopy. Perianal area did not show any fissures or fistulas. There were no masses felt on digital rectal examination. The Olympus CFQ 160L video colonoscope was then inserted in the rectum and the usual fashion and advanced to the cecum. The preparation was less than ideal and there was significant amount of normal colored fecal material and fecal debris scattered along the length of the bowel wall. Where visualized, the mucosa appeared healthy and there were no polyps or tumors or other obvious diverticular disease. I retroflexed endoscope in the rectum before the endoscope was withdrawn. Somewhat prominent rectal veins were noted and internal hemorrhoids not showing any bleeding. The patient tolerated the procedure well. Plan: The patient was reassured. Will allow diet and start a two-week course of Diflucan 100 mg daily. Discussed dietary measures and local care for hemorrhoids. Further plans based on his course. I will discuss with you and follow with you with interest.
--- NOTE | 2017-04-07 14:36 | P.PN ---
Subjective Mr. Duke Sánchez is a 71-year-old male well-known to my practice who presented to [facility] emergency room with a chief complaint of rectal bleeding. Patient describes large amount of red blood from the rectum for several hours prior to presentation, he states that on the day before he was at [facility] receiving IVIG infusion for myasthenia gravis, after he came back he started having severe diarrhea and on the next day he started having severe rectal bleeding, he presented to emergency room at [facility], hemoglobin was 11.8 he was admitted to medical floor, for further evaluation and treatment. During the emergency room stay patient was complaining of mild diffuse pain in the abdomen he underwent a computed tomography scan of the abdomen and pelvis with contrast that revealed evidence of liver cirrhosis and splenomegaly with evidence of moderate ascites and small stable umbilical hernia. 04/06/2017 patient is still reporting some fluid in his abdomen as well as shortness of breath. Also having some lower extremity edema. He did have a hard stool yesterday evening and this morning with no blood present. He denies any chest pain. Denies any nausea or vomiting. Denies any burning with urination. On 04/07/2017 Patient is alert and oriented in no distress, he underwent EGD and colonoscopy today, results are reviewed, no active bleeding at this time, hemoglobin stable at 12.4 Objective - Vital Signs Vital signs: Vital Signs Temp 97.6 F 04/07/17 07:00 Pulse 59 L 04/07/17 07:00 Resp 20 04/07/17 07:00 BP 148/66 04/07/17 07:00 Pulse Ox 99 04/07/17 07:00 Intake & Output 04/06/17 04/07/17 04/07/17 18:59 06:59 18:59 Intake Total 200 150 Output Total 1 Balance 199 150 Weight 107.2 kg Intake: IV 150 Oral 200 Output: Urine 1 Other: Voiding Method Toilet Toilet Toilet Urinal Urinal Urinal # Voids 4 1 # Bowel Movements 2 3 - Exam HEENT head normocephalic and atraumatic Neck is supple no JVD no goiter no lymphadenopathy Chest exam reveals a few scattered rhonchi bilaterally no wheezing Cardiac exam reveals regular heart sounds S1 and S2 no gallops no murmurs Abdomen soft nontender no organomegaly with normal bowel sounds Extremity exam reveals no edema no cyanosis or clubbing - Labs CBC & Chem 7: 04/07/17 07:24 04/07/17 07:24 Labs: Abnormal Lab Results - Last 24 Hours (Table) 04/06/17 04/06/17 04/07/17 Range/Units 17:04 21:31 07:24 WBC (3.8-10.6) k/uL RBC (4.30-5.90) m/uL Hgb (13.0-17.5) gm/dL Hct (39.0-53.0) % Plt Count (150-450) k/uL Lymphocytes # (1.0-4.8) k/uL Sodium 134 L (137-145) mmol/L BUN 23 H (9-20) mg/dL POC Glucose (mg/dL) 133 H 120 H (75-99) mg/dL Albumin 2.7 L (3.5-5.0) g/dL 04/07/17 Range/Units 07:24 WBC 3.3 L (3.8-10.6) k/uL RBC 4.15 L (4.30-5.90) m/uL Hgb 12.4 L (13.0-17.5) gm/dL Hct 38.2 L (39.0-53.0) % Plt Count 61 L (150-450) k/uL Lymphocytes # 0.7 L (1.0-4.8) k/uL Sodium (137-145) mmol/L BUN (9-20) mg/dL POC Glucose (mg/dL) (75-99) mg/dL Albumin (3.5-5.0) g/dL Microbiology - Last 24 Hours (Table) 04/06/17 14:59 Gram Stain - Preliminary Ascites Fluid Body Fluid Culture - Preliminary 04/06/17 14:59 Anaerobic Culture - Preliminary Ascites Fluid Assessment and Plan Plan: #1 gastrointestinal bleeding likely lower GI tract bleeding, per patient last colonoscopy was done at the [facility] 7 years ago. Patient underwent EGD and colonoscopy today, results were reviewed. #2 evidence of liver cirrhosis with ascites, patient had an EGD in August 2016 that revealed small esophageal and gastric paralysis without bleeding at that time #3 thrombocytopenia, platelet count on presentation 72,000 likely related to medication and splenomegaly #4 underlying history of asthenia gravis #5 anemia Last night patient had significant rectal bleeding most likely related to hemorrhoids., EGD and colonoscopy without any active bleeding Will monitor for 24 more hours if stable possible discharge to home tomorrow
[2017-04-07 17:02] LABS: Glucose,Whole Blood 156 mg/dL (75-99)
[2017-04-07 20:13] LABS: Glucose,Whole Blood 113 mg/dL (75-99)
[2017-04-07] MEDS ORDERED: HYDROCORTISONE SUPPOSITORY 25 MG SUPP RECTAL ONE (21:00)
[2017-04-07] MEDS: DILTIAZEM CD 240 MG CAP.ER.24H PO SCH (21:50)
[2017-04-07] MEDS: INSULIN GLARGINE 100 UNIT/ML 10 ML VIAL SQ SCH (21:51)
[2017-04-08] MEDS: PYRIDOSTIGMINE 60 MG TAB PO SCH ×6 (02:46→20:06)
[2017-04-08 07:01] LABS: Glucose,Whole Blood 118 mg/dL (75-99)
[2017-04-08] MEDS: INSULIN LISPRO (humaLOG) 300 UNIT/3 ML VIAL SQ SCH ×4 (07:37→20:14)
[2017-04-08] MEDS: SPIRONOLACTONE 25 MG TAB PO SCH (07:38)
[2017-04-08] MEDS: FINASTERIDE 5 MG TAB PO SCH (07:38)
[2017-04-08] MEDS: PANTOPRAZOLE 40 MG/10 ML VIAL IV SCH (07:38)
[2017-04-08] MEDS: ASCORBIC ACID 500 MG TAB PO SCH (07:39)
[2017-04-08] MEDS: predniSONE 20 MG TAB PO SCH ×2 (07:39→20:08)
[2017-04-08] MEDS: LOSARTAN 50 MG TAB PO SCH (07:39)
[2017-04-08] MEDS: ISOSORBIDE DINITRATE 10 MG TAB PO SCH ×2 (07:39→18:06)
[2017-04-08] MEDS: FUROSEMIDE 40 MG TAB PO SCH (07:40)
[2017-04-08] MEDS: CALCIUM CARB-VIT D 500MG-200UN 1 EACH TAB PO SCH ×2 (07:40→20:08)
[2017-04-08] MEDS: B COMPLEX-VIT C-VIT E-ZINC 1 EACH TAB PO SCH (07:40)
[2017-04-08] MEDS: CYANOCOBALAMIN 500 MCG TAB PO SCH (07:40)
[2017-04-08] MEDS: FLUCONAZOLE 100 MG TAB PO SCH (07:40)
[2017-04-08 07:41] LABS: Basophils % (A) 0 %; CH 30.4; CHCM 33.2; Eosinophils % (A) 0 %; HCT 36.3 % (39.0-53.0); HDW 3.19; HGB 11.6 gm/dL (13.0-17.5); Luc # (Auto) 0.05; Luc % (Auto) 2; Lymphocytes # (A) 0.4 k/uL (1.0-4.8); Lymphocytes % (A) 19 %; MCH 29.3 pg (25.0-35.0); MCHC 31.9 g/dL (31.0-37.0); MCV 91.9 fL (80.0-100.0); Mean Platelet Volume 7.5; Monocytes # (A) 0.1 k/uL (0-1.0); Monocytes % (A) 6 %; Neutrophils # (A) 1.5 k/uL (1.3-7.7); Neutrophils % (A) 72 %; RBC 3.95 m/uL (4.30-5.90); RDW 15.9 % (11.5-15.5); WBC (Perox) 2.13
[2017-04-08] MEDS: lamoTRIgine 25 MG TAB PO SCH ×2 (07:41→20:07)
[2017-04-08] MEDS: DOCUSATE 100 MG CAP PO SCH ×2 (07:41→20:07)
[2017-04-08] MEDS: MULTIVITAMINS, THERA 1 EACH TAB PO SCH (07:41)
[2017-04-08] MEDS: MAGNESIUM OXIDE 400 MG TAB PO SCH (07:42)
[2017-04-08] MEDS: HYDROmorphone 1 MG/ML 1 ML SYRINGE IV PRN ×4 (07:42→16:30)
[2017-04-08] MEDS: POTASSIUM CHLORIDE ER 10 MEQ TAB.ER.PRT PO SCH ×2 (07:42→20:08)
[2017-04-08 07:44] LABS: ALT 38 U/L (21-72); AST 29 U/L (17-59); Alkaline Phosphatase 56 U/L (38-126); Anion Gap 1 mmol/L; Blood Urea Nitrogen 21 mg/dL (9-20); Calcium 8.3 mg/dL (8.4-10.2); Carbon Dioxide 28 mmol/L (22-30); Chloride 103 mmol/L (98-107); Glucose 105 mg/dL (74-99); Non-African American GFR(MDRD) >60 (>60 ml/min/1.73 sqM); Potassium 4.2 mmol/L (3.5-5.1); Sodium 132 mmol/L (137-145); Total Bilirubin 0.6 mg/dL (0.2-1.3); Total Protein 6.6 g/dL (6.3-8.2)
[2017-04-08] MEDS: MORPHINE SULFATE ER 15 MG TABLET PO SCH ×2 (07:47→20:12)
[2017-04-08 11:38] LABS: Glucose,Whole Blood 299 mg/dL (75-99)
--- NOTE | 2017-04-08 12:38 | P.PN ---
Subjective Mr. Duke Sánchez is a 71-year-old male well-known to my practice who presented to [facility] emergency room with a chief complaint of rectal bleeding. Patient describes large amount of red blood from the rectum for several hours prior to presentation, he states that on the day before he was at [facility] receiving IVIG infusion for myasthenia gravis, after he came back he started having severe diarrhea and on the next day he started having severe rectal bleeding, he presented to emergency room at [facility], hemoglobin was 11.8 he was admitted to medical floor, for further evaluation and treatment. During the emergency room stay patient was complaining of mild diffuse pain in the abdomen he underwent a computed tomography scan of the abdomen and pelvis with contrast that revealed evidence of liver cirrhosis and splenomegaly with evidence of moderate ascites and small stable umbilical hernia. 04/06/2017 patient is still reporting some fluid in his abdomen as well as shortness of breath. Also having some lower extremity edema. He did have a hard stool yesterday evening and this morning with no blood present. He denies any chest pain. Denies any nausea or vomiting. Denies any burning with urination. On 04/07/2017 Patient is alert and oriented in no distress, he underwent EGD and colonoscopy today, results are reviewed, no active bleeding at this time, hemoglobin stable at 12.4 On 04/08/2017 patient was seen and examined he states that he had diarrhea with large amount of blood last night no bleeding today Patient is complaining of abdominal pressure and discomfort, otherwise no complaints, labs are significant for low white blood count of 2.0 and low platelets of 60 Objective - Vital Signs Vital signs: Vital Signs Temp 97.5 F L 04/08/17 07:00 Pulse 69 04/08/17 08:00 Resp 18 04/08/17 08:00 BP 133/67 04/08/17 07:00 Pulse Ox 97 04/08/17 07:00 Intake & Output 04/07/17 04/08/17 04/08/17 18:59 06:59 18:59 Intake Total 150 350 Balance 150 350 Weight 103.8 kg 103.8 kg Intake: IV 150 Oral 350 Other: Voiding Method Toilet Toilet Toilet Urinal Urinal Urinal # Voids 1 1 - Exam HEENT head normocephalic and atraumatic Neck is supple no JVD no goiter no lymphadenopathy Chest exam reveals a few scattered rhonchi bilaterally no wheezing Cardiac exam reveals regular heart sounds S1 and S2 no gallops no murmurs Abdomen soft nontender no organomegaly with normal bowel sounds Extremity exam reveals no edema no cyanosis or clubbing - Labs CBC & Chem 7: 04/08/17 06:57 04/08/17 06:57 Labs: Abnormal Lab Results - Last 24 Hours (Table) 04/07/17 04/07/17 04/08/17 Range/Units 17:00 20:12 06:57 WBC 2.0 L* (3.8-10.6) k/uL RBC 3.95 L (4.30-5.90) m/uL Hgb 11.6 L (13.0-17.5) gm/dL Hct 36.3 L (39.0-53.0) % RDW 15.9 H (11.5-15.5) % Plt Count 60 L (150-450) k/uL Lymphocytes # 0.4 L (1.0-4.8) k/uL Sodium (137-145) mmol/L BUN (9-20) mg/dL Glucose (74-99) mg/dL POC Glucose (mg/dL) 156 H 113 H (75-99) mg/dL Calcium (8.4-10.2) mg/dL Albumin (3.5-5.0) g/dL 04/08/17 04/08/17 04/08/17 Range/Units 06:57 07:00 11:36 WBC (3.8-10.6) k/uL RBC (4.30-5.90) m/uL Hgb (13.0-17.5) gm/dL Hct (39.0-53.0) % RDW (11.5-15.5) % Plt Count (150-450) k/uL Lymphocytes # (1.0-4.8) k/uL Sodium 132 L (137-145) mmol/L BUN 21 H (9-20) mg/dL Glucose 105 H (74-99) mg/dL POC Glucose (mg/dL) 118 H 299 H (75-99) mg/dL Calcium 8.3 L (8.4-10.2) mg/dL Albumin 2.4 L (3.5-5.0) g/dL Microbiology - Last 24 Hours (Table) 04/06/17 14:59 Gram Stain - Preliminary Ascites Fluid Body Fluid Culture - Preliminary Assessment and Plan Plan: #1 gastrointestinal bleeding likely lower GI tract bleeding, per patient last colonoscopy was done at the [place] 7 years ago. Patient underwent EGD and colonoscopy today, results were reviewed. #2 evidence of liver cirrhosis with ascites, patient had an EGD in August 2016 that revealed small esophageal and gastric paralysis without bleeding at that time #3 thrombocytopenia, platelet count on presentation 72,000 likely related to medication and splenomegaly #4 underlying history of asthenia gravis #5 anemia, now with evidence of leukopenia and thrombocytopenia, will consult Dr. WELCH Last night patient had significant rectal bleeding most likely related to hemorrhoids., EGD and colonoscopy without any active bleeding Will monitor for 24 more hours if stable possible discharge to home tomorrow
[2017-04-08 17:20] LABS: Glucose,Whole Blood 220 mg/dL (75-99)
[2017-04-08 19:57] LABS: Glucose,Whole Blood 226 mg/dL (75-99)
[2017-04-08] MEDS: DILTIAZEM CD 240 MG CAP.ER.24H PO SCH (20:07)
[2017-04-08] MEDS: INSULIN GLARGINE 100 UNIT/ML 10 ML VIAL SQ SCH (20:13)
--- NOTE | 2017-04-08 20:13 | CONS ---
CONSULTATION REASON FOR CONSULTATION: Pancytopenia. CHIEF COMPLAINT: Rectal bleeding. HISTORY: Mr. Sánchez is a very pleasant 71 years old gentleman who is known to have myasthenia gravis. He has been treated at [facility] with IVIG infusion. He was admitted to the hospital this time because of an episode of rectal bleeding that started after his last IVIG treatment. He noticed a significant amount of red blood in the stools after a bowel movement, so he presented to the emergency department. He had a hemoglobin of 11.8 g upon admission. He was evaluated by Dr. Wilcox. He underwent upper and lower endoscopy, which revealed evidence of esophageal varices and also internal hemorrhoids without any active bleeding. Upon admission, his total white cells also were 4.1, subsequently they dropped down to 2.0. The patient also had on this admission and ultrasound-guided paracentesis and cytology is still pending. The patient is known to have myasthenia gravis as stated above. Also, he was told before in the past that he has nonalcoholic liver cirrhosis. He feels tired. He has some diplopia from his myasthenia gravis, difficulty swallowing, and generalized weakness. He denies any nausea or vomiting. His appetite is fair and his weight has remained relatively stable. He has exertional dyspnea. No significant cough. No nausea or vomiting. He had an episode of hematochezia. No melena. No hematuria, hemoptysis, hematemesis or epistaxis. No fever or chills. PAST MEDICAL HISTORY: As stated above. He has a history of myasthenia gravis, nonalcoholic liver cirrhosis, and he is diabetic. He has coronary artery disease, heart failure, COPD, CVA, gastroesophageal reflux disease, hyperlipidemia, hypertension, myocardial infarction and hypothyroidism. He had heart caths in the past. Hernia repair. Orthopedic surgery, tonsillectomy, EGD and colonoscopy. He had right shoulder rotator cuff repair, right great toe surgery, bilateral inguinal hernia, hydrocele repair. History of depression. FAMILY HISTORY: Family history for malignancy: his father had brain cancer. REVIEW OF SYSTEMS: As stated above in the history of present illness. MEDICATION: Medication and Allergies are reviewed in his electronic medical record. PHYSICAL EXAMINATION: He is alert. He is oriented x3. Does not appear to be in distress at this time. Well developed, well nourished. His vital signs are temperature 97.5 afebrile, pulse is 69, respiration 18, blood pressure 133/68. HEENT: Normocephalic, atraumatic. No obvious icterus. NECK: Supple. CHEST: Equal expansion bilaterally. LUNGS: Clear to auscultation. HEART: Regular rhythm. ABDOMEN: Soft. He has mild ascites. His spleen is significantly enlarged. EXTREMITIES: Revealed evidence of venostasis and 1+ edema. The left leg is wrapped. LYMPHATIC: No peripheral enlarged cervical supraclavicular node. MUSCULOSKELETAL: No percussion tenderness detected on spine or sternum. LABORATORY DATA: WBC of 2.0, hemoglobin 11.6, hematocrit 36.3, platelets 60. Sodium 132, potassium 4.2, chloride 103, CO2 is 28, BUN is 21, creatinine 0.89. AST and ALT and alkaline phosphatase are within normal limits. Total bilirubin is 0.6. IMPRESSION: 1. Pancytopenia. This is likely related to peripheral sequestration from portal hypertension in this gentleman who is known to have nonalcoholic liver cirrhosis. His pancytopenia has been fluctuating. 2. Liver cirrhosis. 3. Ascites, likely secondary to above. He did undergo a paracentesis during this admission. 4. Myasthenia gravis and other comorbidities. RECOMMENDATION: 1. We will await the cytology from the peritoneal fluid. 2. We will obtain serum B12, folate, and iron studies to make sure there is no evidence of deficiency. 3. Monitor blood count and we will monitor blood count and coags. 4. If his blood counts remain stable he could be released home from hematology- oncology standpoint. The above was discussed with the patient. I have answered all his questions. Thank you very much for asking me to participate in the care of this nice gentleman. MMODL / IJN: [id number] /
[2017-04-09] MEDS: PYRIDOSTIGMINE 60 MG TAB PO SCH ×4 (02:00→12:59)
[2017-04-09] MEDS: ISOSORBIDE DINITRATE 10 MG TAB PO SCH ×2 (02:00→10:17)
[2017-04-09 07:02] LABS: Basophils % (A) 0 %; CHCM 33.4; Eosinophils % (A) 0 %; HCT 32.5 % (39.0-53.0); HDW 3.28; HGB 10.5 gm/dL (13.0-17.5); Luc # (Auto) 0.04; Luc % (Auto) 2; Lymphocytes # (A) 0.3 k/uL (1.0-4.8); Lymphocytes % (A) 16 %; MCH 29.1 pg (25.0-35.0); MCHC 32.5 g/dL (31.0-37.0); MCV 89.7 fL (80.0-100.0); Mean Platelet Volume 7.4; Monocytes # (A) 0.2 k/uL (0-1.0); Monocytes % (A) 9 %; Neutrophils # (A) 1.6 k/uL (1.3-7.7); Neutrophils % (A) 73 %; RBC 3.62 m/uL (4.30-5.90); RDW 15.9 % (11.5-15.5); WBC 2.2 k/uL (3.8-10.6)
[2017-04-09 07:14] LABS: ALT 39 U/L (21-72); AST 24 U/L (17-59); Alkaline Phosphatase 60 U/L (38-126); Anion Gap 1 mmol/L; Blood Urea Nitrogen 21 mg/dL (9-20); Calcium 8.4 mg/dL (8.4-10.2); Carbon Dioxide 26 mmol/L (22-30); Chloride 104 mmol/L (98-107); Glucose 134 mg/dL (74-99); Non-African American GFR(MDRD) >60 (>60 ml/min/1.73 sqM); Potassium 4.6 mmol/L (3.5-5.1); Sodium 131 mmol/L (137-145); Total Bilirubin 0.6 mg/dL (0.2-1.3); Total Protein 6.1 g/dL (6.3-8.2)
[2017-04-09 07:17] LABS: Glucose,Whole Blood 143 mg/dL (75-99)
[2017-04-09] MEDS: INSULIN LISPRO (humaLOG) 300 UNIT/3 ML VIAL SQ SCH ×2 (07:27→12:57)
[2017-04-09] MEDS: HYDROmorphone 1 MG/ML 1 ML SYRINGE IV PRN ×3 (07:28→13:30)
[2017-04-09] MEDS: MORPHINE SULFATE ER 15 MG TABLET PO SCH (07:41)
[2017-04-09 07:55] VITALS: BP 119/59; TEMP 97.8
[2017-04-09] MEDS: ASCORBIC ACID 500 MG TAB PO SCH (10:16)
[2017-04-09] MEDS: MULTIVITAMINS, THERA 1 EACH TAB PO SCH (10:17)
[2017-04-09] MEDS: FINASTERIDE 5 MG TAB PO SCH (10:18)
[2017-04-09] MEDS: SPIRONOLACTONE 25 MG TAB PO SCH (10:18)
[2017-04-09] MEDS: FUROSEMIDE 40 MG TAB PO SCH (10:19)
[2017-04-09] MEDS: B COMPLEX-VIT C-VIT E-ZINC 1 EACH TAB PO SCH (10:19)
[2017-04-09] MEDS: FLUCONAZOLE 100 MG TAB PO SCH (10:19)
[2017-04-09] MEDS: lamoTRIgine 25 MG TAB PO SCH (10:20)
[2017-04-09] MEDS: CALCIUM CARB-VIT D 500MG-200UN 1 EACH TAB PO SCH (10:20)
[2017-04-09] MEDS: LOSARTAN 50 MG TAB PO SCH (10:20)
[2017-04-09] MEDS: predniSONE 20 MG TAB PO SCH (10:20)
[2017-04-09] MEDS: CYANOCOBALAMIN 500 MCG TAB PO SCH (10:21)
[2017-04-09] MEDS: POTASSIUM CHLORIDE ER 10 MEQ TAB.ER.PRT PO SCH (10:21)
[2017-04-09] MEDS: DOCUSATE 100 MG CAP PO SCH (10:21)
[2017-04-09] MEDS: PANTOPRAZOLE 40 MG/10 ML VIAL IV SCH (10:22)
[2017-04-09] MEDS: MAGNESIUM OXIDE 400 MG TAB PO SCH (10:23)
[2017-04-09 11:36] LABS: Glucose,Whole Blood 312 mg/dL (75-99)
[2017-04-09 11:38] VITALS: PULSE 75; RESP 18
--- NOTE | 2017-04-09 14:35 | P.DS ---
Providers Date of admission: 04/04/17 23:21 Expected date of discharge: 04/09/17 Attending physician: Josr Osorio Consults: 04/04/17 23:22 Consult Physician Urgent Consulting Provider: Vazquez Wilcox Consult Reason/Comments: gi bleed, abd pain Do you want consulting provider notified?: Yes 04/08/17 12:23 Consult Physician Routine Consulting Provider: Dwight Vergara Consult Reason/Comments: leukopenia and thrombocytopenia Do you want consulting provider notified?: Yes Primary care physician: [facility] Course: Diagnoses on discharge: #1 gastrointestinal bleeding likely lower GI tract bleeding, per patient last colonoscopy was done at the [place] 7 years ago. Patient underwent EGD and colonoscopy today, results were reviewed. #2 evidence of liver cirrhosis with ascites, patient had an EGD in August 2016 that revealed small esophageal and gastric paralysis without bleeding at that time #3 thrombocytopenia, platelet count on presentation 72,000 likely related to medication and splenomegaly #4 underlying history of myasthenia gravis #5 anemia, now with evidence of leukopenia and thrombocytopenia, Hospital course: Mr. Duke Sánchez is a 71-year-old male well-known to my practice who presented to [facility] emergency room with a chief complaint of rectal bleeding. Patient describes large amount of red blood from the rectum for several hours prior to presentation, he states that on the day before he was at [facility] receiving IVIG infusion for myasthenia gravis, after he came back he started having severe diarrhea and on the next day he started having severe rectal bleeding, he presented to emergency room at [facility], hemoglobin was 11.8 he was admitted to medical floor, for further evaluation and treatment. During the emergency room stay patient was complaining of mild diffuse pain in the abdomen he underwent a computed tomography scan of the abdomen and pelvis with contrast that revealed evidence of liver cirrhosis and splenomegaly with evidence of moderate ascites and small stable umbilical hernia. 04/06/2017 patient is still reporting some fluid in his abdomen as well as shortness of breath. Also having some lower extremity edema. He did have a hard stool yesterday evening and this morning with no blood present. He denies any chest pain. Denies any nausea or vomiting. Denies any burning with urination. On 04/07/2017 Patient is alert and oriented in no distress, he underwent EGD and colonoscopy today, results are reviewed, no active bleeding at this time, hemoglobin stable at 12.4 On 04/08/2017 patient was seen and examined he states that he had diarrhea with large amount of blood last night no bleeding today Patient is complaining of abdominal pressure and discomfort, otherwise no complaints, labs are significant for low white blood count of 2.0 and low platelets of 60 04/09/2017 patient was seen and examined he is alert and oriented 3 no further bleeding since he was seen yesterday patient had a bowel movement this morning that was brown in color without any bleed, white blood count and platelet count remained low, patient was seen by Dr. Hoang, pancytopenia is related to liver cirrhosis and possibly to myasthenia gravis medications, no need for intervention at this point. Patient will be discharged home today he will be followed in our office in 1-2 days will recheck labs in the office as outpatient. Patient was instructed to return to the hospital if having any significant rectal bleeding. Patient Condition at Discharge: Fair Plan - Discharge Summary New Discharge Prescriptions: New Finasteride [Proscar] 5 mg PO DAILY tab Spironolactone [Aldactone] 50 mg PO DAILY tab Continue Artificial Tears-Hypromellose [Artificial Tear Drops] 2 drops BOTH EYES TID PRN PRN Reason: Dry Eye(S) Potassium Chloride [Klor-Con 10] 10 meq PO BID Furosemide [Lasix] 40 mg PO QAM Aspirin EC [Ecotrin] 325 mg PO DAILY Insulin Glargine [Lantus] 45 unit SQ HS Diltiazem Cd [Cardizem CD] 240 mg PO HS Finasteride [Proscar] 5 mg PO DAILY Cyanocobalamin (Vitamin B-12) [Vitamin B-12] 2,000 mcg PO DAILY Vitamin B Complex 1 cap PO DAILY Nitroglycerin Sl Tabs [Nitrostat] 0.4 mg SUBLINGUAL Q5M PRN #50 tab PRN Reason: Chest Pain Ubidecarenone [Co Q-10] 100 mg PO DAILY levETIRAcetam [Keppra] 750 mg PO Q12HR #30 tab predniSONE 20 mg PO BID lamoTRIgine [LaMICtal] 25 mg PO BID Sulfamethox-Tmp 800-160Mg [Bactrim DS 800-160 mg] 1 tab PO MOWEFR Sennosides [Senna] 17.2 mg PO BID PRN PRN Reason: Constipation Ranitidine HCl [Zantac] 150 mg PO BID Pyridostigmine [place] [Mestinon] 60 mg PO Q4H Polyethylene Glycol 3350 [Miralax] 17 gm PO TID PRN PRN Reason: Constipation Multivitamins, Thera [Multivitamin (formulary)] 1 tab PO DAILY Morphine Sulfate ER [Ms Contin] 15 mg PO BID Losartan [Cozaar] 50 mg PO DAILY Isosorbide Dinitrate 30 mg PO TID Docusate [Colace] 100 mg PO BID Calcium Carbonate/Vitamin D3 [Calcium 600-Vit D3 400 Caplet] 2 tab PO BID Magnesium Oxide [Mag-Ox] 250 mg PO DAILY Ascorbic Acid [Vitamin C] 1,000 mg PO DAILY Discontinued Pantoprazole Sodium 40 mg PO DAILY Meloxicam 15 mg PO DAILY Discharge Medication List Artificial Tears-Hypromellose [Artificial Tear Drops] 2 drops BOTH EYES TID PRN 04/14/15 [History] Aspirin EC [Ecotrin] 325 mg PO DAILY 04/14/15 [History] Diltiazem Cd [Cardizem CD] 240 mg PO HS 04/14/15 [History] Finasteride [Proscar] 5 mg PO DAILY 04/14/15 [History] Furosemide [Lasix] 40 mg PO QAM 04/14/15 [History] Insulin Glargine [Lantus] 45 unit SQ HS 04/14/15 [History] Potassium Chloride [Klor-Con 10] 10 meq PO BID 04/14/15 [History] Cyanocobalamin (Vitamin B-12) [Vitamin B-12] 2,000 mcg PO DAILY 07/24/16 [ History] Vitamin B Complex 1 cap PO DAILY 07/24/16 [History] Nitroglycerin Sl Tabs [Nitrostat] 0.4 mg SUBLINGUAL Q5M PRN #50 tab 09/22/16 [Rx ] Ubidecarenone [Co Q-10] 100 mg PO DAILY 12/11/16 [History] levETIRAcetam [Keppra] 750 mg PO Q12HR #30 tab 12/14/16 [Rx] Ascorbic Acid [Vitamin C] 1,000 mg PO DAILY 04/04/17 [History] Calcium Carbonate/Vitamin D3 [Calcium 600-Vit D3 400 Caplet] 2 tab PO BID [History] Docusate [Colace] 100 mg PO BID 04/04/17 [History] Isosorbide Dinitrate 30 mg PO TID 04/04/17 [History] Losartan [Cozaar] 50 mg PO DAILY 04/04/17 [History] Magnesium Oxide [Mag-Ox] 250 mg PO DAILY 04/04/17 [History] Morphine Sulfate ER [Ms Contin] 15 mg PO BID 04/04/17 [History] Multivitamins, Thera [Multivitamin (formulary)] 1 tab PO DAILY 04/04/17 [History ] Polyethylene Glycol 3350 [Miralax] 17 gm PO TID PRN 04/04/17 [History] Pyridostigmine [place] [Mestinon] 60 mg PO Q4H 04/04/17 [History] Ranitidine HCl [Zantac] 150 mg PO BID 04/04/17 [History] Sennosides [Senna] 17.2 mg PO BID PRN 04/04/17 [History] Sulfamethox-Tmp 800-160Mg [Bactrim DS 800-160 mg] 1 tab PO MOWEFR 04/04/17 [ History] lamoTRIgine [LaMICtal] 25 mg PO BID 04/04/17 [History] predniSONE 20 mg PO BID 04/04/17 [History] Finasteride [Proscar] 5 mg PO DAILY tab 04/09/17 [Rx] Spironolactone [Aldactone] 50 mg PO DAILY tab 04/09/17 [Rx] Follow up Appointment(s)/Referral(s): Josr Osorio MD [Primary Care Provider] - 1-2 days [facility] Vis[facility] Nurse, [NON-STAFF] - 1 Week
== END 2017-04-09 16:21 | disposition home or self-care (01) | DRG 378 ==
LOC: EC 19:57 → 5MS5E 23:21
PROVIDERS: ADMIT Internal Medicine; ATTEND Internal Medicine
PROC: 0DJ08ZZ Inspection of Upper Intestinal Tract, Via Natural or Artificial Opening Endoscopic (ICD-10-PCS; principal; 2017-04-04)
PROC: 0DJD8ZZ Inspection of Lower Intestinal Tract, Via Natural or Artificial Opening Endoscopic (ICD-10-PCS; 2017-04-04)
PROC: 0W9G3ZZ Drainage of Peritoneal Cavity, Percutaneous Approach (ICD-10-PCS; 2017-04-04)
DX: K92.2 Gastrointestinal hemorrhage, unspecified (principal); R18.8 Other ascites; D61.818 Other pancytopenia; B37.81 Candidal esophagitis; I11.0 Hypertensive heart disease with heart failure; I50.9 Heart failure, unspecified; K76.6 Portal hypertension; E11.42 Type 2 diabetes mellitus with diabetic polyneuropathy; D69.6 Thrombocytopenia, unspecified; J44.9 Chronic obstructive pulmonary disease, unspecified; R16.1 Splenomegaly, not elsewhere classified; K74.60 Unspecified cirrhosis of liver; D64.9 Anemia, unspecified; I25.10 Atherosclerotic heart disease of native coronary artery without angina pectoris; F32.9 Major depressive disorder, single episode, unspecified; K21.9 Gastro-esophageal reflux disease without esophagitis; H91.90 Unspecified hearing loss, unspecified ear; E78.5 Hyperlipidemia, unspecified; G40.909 Epilepsy, unspecified, not intractable, without status epilepticus; K42.9 Umbilical hernia without obstruction or gangrene; E03.9 Hypothyroidism, unspecified; E11.65 Type 2 diabetes mellitus with hyperglycemia; G47.30 Sleep apnea, unspecified; G70.00 Myasthenia gravis without (acute) exacerbation; I85.00 Esophageal varices without bleeding; I86.4 Gastric varices; K64.1 Second degree hemorrhoids; R63.4 Abnormal weight loss; Z88.8 Allergy status to other drugs, medicaments and biological substances; Z80.8 Family history of malignant neoplasm of other organs or systems; Z86.73 Personal history of transient ischemic attack (TIA), and cerebral infarction without residual deficits; Z80.1 Family history of malignant neoplasm of trachea, bronchus and lung; Z87.891 Personal history of nicotine dependence; Z79.52 Long term (current) use of systemic steroids; Z79.4 Long term (current) use of insulin; Z79.899 Other long term (current) drug therapy; Z79.82 Long term (current) use of aspirin; Z81.1 Family history of alcohol abuse and dependence; Z98.41 Cataract extraction status, right eye; Z87.19 Personal history of other diseases of the digestive system; I25.2 Old myocardial infarction; Z87.01 Personal history of pneumonia (recurrent); Z90.49 Acquired absence of other specified parts of digestive tract
CPT/HCPCS: 36415; 43235; 45378; 49083; 74177; 76705; 80048; 80053; 80074; 82042; 82105; 82150; 82945; 83036; 83690; 85025; 85610; 85730; 86850; 86900; 86901; 87070; 87075; 87205; 88108; 88305; 89050; 93005; 96361; 96372; 96374; 96375; 96376; 99285

== ENCOUNTER 2017-08-02 16:42 | Inpatient (IN) | payer MEDICARE, BC ==
[2017-08-02] MEDS ORDERED: SODIUM CHLORIDE 0.9% 1,000 ML IV STA (17:21)
--- NOTE | 2017-08-02 17:26 | ED ---
General Adult HPI - General Chief complaint: Chest Pain Stated complaint: Chest Pain Time Seen by Provider: 08/02/17 17:21 Source: patient, family, RN notes reviewed, old records reviewed Mode of arrival: wheelchair Limitations: physical limitation - History of Present Illness Initial comments: This is a 72-year-old male the ER for the patient's chest pain. Patient does have severe chest pain anterior chest pain. Heaviness. Patient has history of heart disease history of CAD. Patient denies nausea vomiting, occasional diaphoresis with episodic. Denies fevers. No recent travel history or sick contacts. Patient denies any shortness of breath currently but does still complain of chest pain - Related Data Home Medications Medication Instructions Recorded Confirmed Aspirin EC [Ecotrin] 325 mg PO DAILY 04/14/15 08/02/17 Diltiazem Cd [Cardizem CD] 240 mg PO HS 04/14/15 08/02/17 Finasteride [Proscar] 5 mg PO DAILY 04/14/15 08/02/17 Furosemide [Lasix] 40 mg PO QAM 04/14/15 08/02/17 Insulin Glargine [Lantus] 45 unit SQ HS 04/14/15 08/02/17 Potassium Chloride [Klor-Con 10] 10 meq PO BID 04/14/15 08/02/17 Cyanocobalamin (Vitamin B-12) 2,000 mcg PO DAILY 07/24/16 08/02/17 [Vitamin B-12] Vitamin B Complex 1 cap PO DAILY 07/24/16 08/02/17 Ubidecarenone [Co Q-10] 100 mg PO DAILY 12/11/16 08/02/17 Ascorbic Acid [Vitamin C] 1,000 mg PO DAILY 04/04/17 08/02/17 Calcium Carbonate/Vitamin D3 2 tab PO BID 04/04/17 08/02/17 [Calcium 600-Vit D3 400 Caplet] Docusate [Colace] 100 mg PO BID PRN 04/04/17 08/02/17 Losartan [Cozaar] 50 mg PO DAILY@1400 04/04/17 08/02/17 Morphine Sulfate ER [Ms Contin] 15 mg PO BID 04/04/17 08/02/17 Multivitamins, Thera [Multivitamin 1 tab PO DAILY 04/04/17 08/02/17 (formulary)] Polyethylene Glycol 3350 [Miralax] 17 gm PO TID PRN 04/04/17 08/02/17 Pyridostigmine [place] [Mestinon] 60 mg PO Q4H 04/04/17 08/02/17 Ranitidine HCl [Zantac] 150 mg PO BID 04/04/17 08/02/17 Sennosides [Senna] 8.6 mg PO BID PRN 04/04/17 08/02/17 Isosorbide Mononitrate ER [Imdur] 30 mg PO DAILY 08/02/17 08/02/17 Magnesium Oxide [Mag-Ox] 400 mg PO DAILY 08/02/17 08/02/17 Pantoprazole Sodium [Protonix] 40 mg PO DAILY 08/02/17 08/02/17 Spironolactone [Aldactone] 25 mg PO QID 08/02/17 08/02/17 lamiVUDine [Epivir] 200 mg PO DAILY 08/02/17 08/02/17 lamoTRIgine [LaMICtal] 100 mg PO BID 08/02/17 08/02/17 predniSONE 15 mg PO DAILY 08/02/17 08/02/17 Previous Rx's Medication Instructions Recorded Nitroglycerin Sl Tabs [Nitrostat] 0.4 mg SUBLINGUAL Q5M PRN #50 tab 09/22/16 Allergies Allergy/AdvReac Type Severity Reaction Status Date / Time methylprednisolone acetate Allergy Severe Anaphylaxis Verified 08/02/17 17:32 [From Depo-Medrol] cephalexin [From Keflex] Allergy Rash/Hives Verified 08/02/17 17:32 duloxetine [From Cymbalta] AdvReac Intense Verified 08/02/17 17:32 Flushing gabapentin [From Neurontin] AdvReac Tremors Verified 08/02/17 17:32 polyethylene glycol AdvReac Confusion Verified 08/02/17 17:32 [From Golytely] polyethylene glycol 3350 AdvReac Confusion Verified 08/02/17 17:32 [From Golytely] potassium chloride AdvReac Confusion Verified 08/02/17 17:32 [From Golytely] pregabalin [From Lyrica] AdvReac Intense Verified 08/02/17 17:32 Flushing sodium [From Golytely] AdvReac Confusion Verified 01/31/18 17:32 sodium bicarbonate AdvReac Confusion Verified 08/02/17 17:32 [From Golytely] sodium chloride AdvReac Confusion Verified 08/02/17 17:32 [From Golytely] sodium sulfate AdvReac Confusion Verified 08/02/17 17:32 [From Golytely] sodium sulfate anhydrous AdvReac Confusion Verified 08/02/17 17:32 [From Golytely] Review of Systems ROS Statement: Those systems with pertinent positive or pertinent negative responses have been documented in the HPI. ROS Other: All systems not noted in ROS Statement are negative. Past Medical History Past Medical History: Asthma, Coronary Artery Disease (CAD), Heart Failure, COPD , CVA/TIA, Diabetes Mellitus, Eye Disorder, GERD/Reflux, Hearing Disorder / Deafness, Hyperlipidemia, Hypertension, Liver Disease, Memory Impairment, Myocardial Infarction (DC), Pneumonia, Prostate Disorder, Seizure Disorder, Sleep Apnea/CPAP/BIPAP, Thyroid Disorder Additional Past Medical History / Comment(s): Pt concerned over wt loss of 50# over past 2 months-states he has an apetite and is eating but losing wt, EYES "BURNED" IN SERVICE-(gas can blew up). HX DC X2; POSS CVA. hx ulcer, "MEMORY PROB R/T HX head injury" NEUROPATHY AVA FEET, CHRONIC BACK PAIN, occasional cervical pain, no. cpap, ON O2 2L NC AT Night & PRN. DIFF SWALLOWING, constipation, liver-cirrhosis, anemia, enlarged spleen, heart murmur, L cataract , seizures with last seizure-pt thinks last seizure July 2016-states he has "mini-mals-I go out and can't wake up". Last Myocardial Infarction Date:: 1989 History of Any Multi-Drug Resistant Organisms: None Reported Past Surgical History: Heart Catheterization, Hernia Repair, Orthopedic Surgery , Tonsillectomy Additional Past Surgical History / Comment(s): 08/09/16 EGD. Other surgical hx: past EGD/colonoscopy, RT GREAT TOE JOINT, RT SHOULDER rotator cuff repair. rt cataract, bilateral inguinal hernia repairs & hydrocele repair Past Anesthesia/Blood Transfusion Reactions: Motion Sickness, Postoperative Nausea & Vomiting (PONV) Additional Past Anesthesia/Blood Transfusion Reaction / Comment(s): no hx blood transfusion Past Psychological History: Depression Smoking Status: Former smoker Past Alcohol Use History: None Reported Past Drug Use History: None Reported - Past Family History Mother Family Medical History: Liver Disease, Pneumonia Additional Family Medical History / Comment(s): alcoholism Father Family Medical History: Cancer Additional Family Medical History / Comment(s): Father had lung cancer with mets to brain. He was a nonsmoker but his spouse smoked in the house. General Exam Limitations: physical limitation General appearance: alert, in no apparent distress Head exam: Present: atraumatic, normocephalic, normal inspection Eye exam: Present: normal appearance, PERRL, EOMI. Absent: scleral icterus, conjunctival injection, periorbital swelling ENT exam: Present: normal exam, mucous membranes moist Neck exam: Present: normal inspection. Absent: tenderness, meningismus, lymphadenopathy Respiratory exam: Present: normal lung sounds bilaterally. Absent: respiratory distress, wheezes, rales, rhonchi, stridor Cardiovascular Exam: Present: normal rhythm, tachycardia, normal heart sounds. Absent: systolic murmur, diastolic murmur, rubs, gallop, clicks GI/Abdominal exam: Present: soft, normal bowel sounds. Absent: distended, tenderness, guarding, rebound, rigid Extremities exam: Present: normal inspection, full ROM, normal capillary refill. Absent: tenderness, pedal edema, joint swelling, calf tenderness Back exam: Present: normal inspection Neurological exam: Present: alert, oriented X3, CN II-XII intact Psychiatric exam: Present: normal affect, normal mood Skin exam: Present: warm, dry, intact, normal color. Absent: rash Course Vital Signs 08/02/17 08/02/17 08/02/17 16:49 18:03 18:36 Temperature 98.6 F Pulse Rate 112 H 71 103 H Respiratory 18 16 16 Rate Blood Pressure 131/78 154/75 136/72 O2 Sat by Pulse 97 97 98 Oximetry - Reevaluation(s) Reevaluation #1: 08/02/17 19:32 Patient states he is having continued chest pain here in the emergency room and throughout ER stay EKG Findings - EKG Comments: EKG Findings:: EKG shows sinus rhythm rate of 97, CO 1:30, QRS 92, QTC 411 Medical Decision Making - Medical Decision Making 72 male the ER with history of CAD, no chest pain. Patient has negative chest x -ray negative troponin, EKG normal Patient be admitted for cardiac observation anticoagulation. - Lab Data Result diagrams: 08/02/17 17:40 01/31/18 17:40 Lab Results 08/02/17 08/02/17 08/02/17 Range/Units 17:40 17:40 17:40 WBC 8.4 (3.8-10.6) k/uL RBC 4.25 L (4.30-5.90) m/uL Hgb 11.0 L (13.0-17.5) gm/dL Hct 34.9 L (39.0-53.0) % MCV 82.2 (80.0-100.0) fL MCH 25.8 (25.0-35.0) pg MCHC 31.4 (31.0-37.0) g/dL RDW 18.0 H (11.5-15.5) % Plt Count 133 L (150-450) k/uL Neutrophils % 89 % Lymphocytes % 6 % Monocytes % 4 % Eosinophils % 0 % Basophils % 0 % Neutrophils # 7.4 (1.3-7.7) k/uL Lymphocytes # 0.5 L (1.0-4.8) k/uL Monocytes # 0.4 (0-1.0) k/uL Eosinophils # 0.0 (0-0.7) k/uL Basophils # 0.0 (0-0.2) k/uL Hypochromasia Moderate Poikilocytosis Slight Anisocytosis Slight PT (9.0-12.0) sec INR (<1.2) APTT (22.0-30.0) sec Sodium 132 L (137-145) mmol/L Potassium 4.9 (3.5-5.1) mmol/L Chloride 101 (98-107) mmol/L Carbon Dioxide 24 (22-30) mmol/L Anion Gap 7 mmol/L BUN 14 (9-20) mg/dL Creatinine 0.93 (0.66-1.25) mg/dL Est GFR (MDRD) Af Amer >60 (>60 ml/min/1.73 sqM) Est GFR (MDRD) Non-Af >60 (>60 ml/min/1.73 sqM) Glucose 219 H (74-99) mg/dL Calcium 9.7 (8.4-10.2) mg/dL Magnesium 1.6 (1.6-2.3) mg/dL Total Bilirubin 0.8 (0.2-1.3) mg/dL AST 27 (17-59) U/L ALT 34 (21-72) U/L Alkaline Phosphatase 63 (38-126) U/L Total Creatine Kinase 22 L (55-170) U/L CK-MB (CK-2) 0.7 (0.0-2.4) ng/mL CK-MB (CK-2) Rel Index 3.2 Troponin I <0.012 (0.000-0.034) ng/mL Total Protein 6.7 (6.3-8.2) g/dL Albumin 3.5 (3.5-5.0) g/dL Lipase 52 (23-300) U/L 08/02/17 Range/Units 17:40 WBC (3.8-10.6) k/uL RBC (4.30-5.90) m/uL Hgb (13.0-17.5) gm/dL Hct (39.0-53.0) % MCV (80.0-100.0) fL MCH (25.0-35.0) pg MCHC (31.0-37.0) g/dL RDW (11.5-15.5) % Plt Count (150-450) k/uL Neutrophils % % Lymphocytes % % Monocytes % % Eosinophils % % Basophils % % Neutrophils # (1.3-7.7) k/uL Lymphocytes # (1.0-4.8) k/uL Monocytes # (0-1.0) k/uL Eosinophils # (0-0.7) k/uL Basophils # (0-0.2) k/uL Hypochromasia Poikilocytosis Anisocytosis PT 10.3 (9.0-12.0) sec INR 1.1 (<1.2) APTT 21.0 L (22.0-30.0) sec Sodium (137-145) mmol/L Potassium (3.5-5.1) mmol/L Chloride (98-107) mmol/L Carbon Dioxide (22-30) mmol/L Anion Gap mmol/L BUN (9-20) mg/dL Creatinine (0.66-1.25) mg/dL Est GFR (MDRD) Af Amer (>60 ml/min/1.73 sqM) Est GFR (MDRD) Non-Af (>60 ml/min/1.73 sqM) Glucose (74-99) mg/dL Calcium (8.4-10.2) mg/dL Magnesium (1.6-2.3) mg/dL Total Bilirubin (0.2-1.3) mg/dL AST (17-59) U/L ALT (21-72) U/L Alkaline Phosphatase (38-126) U/L Total Creatine Kinase (55-170) U/L CK-MB (CK-2) (0.0-2.4) ng/mL CK-MB (CK-2) Rel Index Troponin I (0.000-0.034) ng/mL Total Protein (6.3-8.2) g/dL Albumin (3.5-5.0) g/dL Lipase (23-300) U/L - Radiology Data Radiology results: report reviewed (Chest x-rays negative for acute disease), image reviewed Critical Care Time Critical Care Time: Yes Total Critical Care Time: 31 Disposition Clinical Impression: COPD (chronic obstructive pulmonary disease), Chest pain, Unstable angina pectoris Disposition: ADMITTED IP TO THIS [facility] Condition: Undetermined Referrals: Josr Osorio MD [Primary Care Provider] - 1-2 days
[2017-08-02 18:02] LABS: Anisocytosis Slight; Basophils % (A) 0 %; Eosinophils % (A) 0 %; HCT 34.9 % (39.0-53.0); Hypochromasia Moderate; Lymphocytes # (A) 0.5 k/uL (1.0-4.8); Lymphocytes % (A) 6 %; MCH 25.8 pg (25.0-35.0); MCHC 31.4 g/dL (31.0-37.0); MCV 82.2 fL (80.0-100.0); Mean Platelet Volume 7.7; Monocytes # (A) 0.4 k/uL (0-1.0); Monocytes % (A) 4 %; Neutrophils # (A) 7.4 k/uL (1.3-7.7); Neutrophils % (A) 89 %; Platelet Count 133 k/uL (150-450); Poikilocytosis Slight; RBC 4.25 m/uL (4.30-5.90); WBC 8.4 k/uL (3.8-10.6)
[2017-08-02 18:07] LABS: Creatine Kinase 22 U/L (55-170)
[2017-08-02 18:09] LABS: ALT 34 U/L (21-72); AST 27 U/L (17-59); Albumin 3.5 g/dL (3.5-5.0); Alkaline Phosphatase 63 U/L (38-126); Anion Gap 7 mmol/L; Blood Urea Nitrogen 14 mg/dL (9-20); Calcium 9.7 mg/dL (8.4-10.2); Carbon Dioxide 24 mmol/L (22-30); Chloride 101 mmol/L (98-107); Glucose 219 mg/dL (74-99); Lipase 52 U/L (23-300); Magnesium 1.6 mg/dL (1.6-2.3); Potassium 4.9 mmol/L (3.5-5.1); Sodium 132 mmol/L (137-145); Total Bilirubin 0.8 mg/dL (0.2-1.3); Total Protein 6.7 g/dL (6.3-8.2)
[2017-08-02 18:18] LABS: INR 1.1 (<1.2); Prothrombin Time 10.3 sec (9.0-12.0)
[2017-08-02 18:19] LABS: Creatine Kinase MB 0.7 ng/mL (0.0-2.4); Troponin I <0.012 ng/mL (0.000-0.034)
--- NOTE | 2017-08-02 18:21 | XR ---
EXAMINATION TYPE: XR chest 2V DATE OF EXAM: 08/02/2017 COMPARISON: 12/11/2016 HISTORY: Chest pain TECHNIQUE: Frontal and lateral views of the chest are obtained. FINDINGS: There is extensive reticular nodular infiltrates throughout the lungs. Heart size is rosalee l. There is no gross heart failure. There are chest leads. There is suboptimal inspiration. Bony thor ax appears intact. IMPRESSION: Advanced pulmonary fibrosis. Normal heart. No gross heart failure. No significant change compared to last exam.
[2017-08-02] MEDS ORDERED: MORPHINE SULFATE 2 MG/ML SYRINGE IVP STA (18:26)
[2017-08-02] MEDS ORDERED: NITROGLYCERIN SL TABS 0.4 MG TAB SUBLINGUAL PRN ×2 (19:29→22:03)
[2017-08-02] MEDS ORDERED: MORPHINE SULFATE 2 MG/ML SYRINGE IV PRN (19:29)
[2017-08-02] MEDS ORDERED: HEPARIN SODIUM,PORCINE 5,000 UNIT/ML 1 ML VIAL IV PRN (19:29)
[2017-08-02] MEDS ORDERED: HEPARIN SODIUM,PORCINE 5,000 UNIT/ML 1 ML VIAL IV ONE (19:29)
[2017-08-02] MEDS ORDERED: HEPARIN SOD,PORK IN 0.45% NACL 25,000 UNIT in 0.45% NACL 1 500ML.BAG IV SCH (19:30)
[2017-08-02 21:44] LABS: Glucose,Whole Blood 255 mg/dL (75-99)
[2017-08-02] MEDS ORDERED: POLYETHYLENE GLYCOL 3350 17 GM POWD.PACK PO PRN (22:03)
[2017-08-02] MEDS ORDERED: SENNOSIDES 8.6 MG TAB PO PRN (22:03)
[2017-08-02] MEDS ORDERED: DOCUSATE 100 MG CAP PO PRN (22:03)
[2017-08-02] MEDS ORDERED: INSULIN DETEMIR 100 UNIT/ML 10 ML VIAL SQ SCH (22:15)
[2017-08-02] MEDS ORDERED: INSULIN ASPART 100 UNIT/ML 1 ML 10 ML VIAL SQ ONE (23:09)
[2017-08-02] MEDS: POTASSIUM CHLORIDE ER 10 MEQ TAB.ER.PRT PO SCH (23:29)
[2017-08-02] MEDS: DILTIAZEM CD 240 MG CAP.ER.24H PO SCH (23:29)
[2017-08-02] MEDS: FAMOTIDINE 20 MG TAB PO SCH (23:29)
[2017-08-02] MEDS: MULTIVITAMINS, THERA 1 EACH TAB PO SCH (23:29)
[2017-08-02] MEDS: SPIRONOLACTONE 25 MG TAB PO SCH (23:29)
[2017-08-02] MEDS: lamoTRIgine 100 MG TAB PO SCH (23:29)
[2017-08-02] MEDS: METOPROLOL TARTRATE 25 MG TAB PO SCH (23:32)
[2017-08-02] MEDS: MORPHINE SULFATE ER 15 MG TABLET PO SCH (23:39)
[2017-08-03 00:04] LABS: Creatine Kinase 21 U/L (55-170)
[2017-08-03 00:17] LABS: Creatine Kinase MB 0.7 ng/mL (0.0-2.4); Troponin I <0.012 ng/mL (0.000-0.034)
[2017-08-03 05:44] LABS: Mean Platelet Volume 7.6; Platelet Count 126 k/uL (150-450)
[2017-08-03 05:52] LABS: Cholesterol 144 mg/dL (<200); HDL Cholesterol 69 mg/dL (40-60); LDL Cholesterol,Calculated 66 mg/dL (0-99); Triglycerides 46 mg/dL (<150)
[2017-08-03 06:03] LABS: Glucose,Whole Blood 69 mg/dL (75-99)
[2017-08-03 06:06] LABS: Creatine Kinase <20 U/L (55-170)
[2017-08-03 06:19] LABS: Creatine Kinase MB 0.5 ng/mL (0.0-2.4); Troponin I <0.012 ng/mL (0.000-0.034)
[2017-08-03 06:28] LABS: Glucose,Whole Blood 128 mg/dL (75-99)
[2017-08-03] MEDS ORDERED: REGADENOSON 0.4 MG/5 ML SYRINGE IV ONE (08:22)
[2017-08-03] MEDS ORDERED: AMINOPHYLLINE 500 MG/20 ML VIAL IV PRN (08:22)
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
[2017-08-03] MEDS: INSULIN ASPART 100 UNIT/ML 1 ML 10 ML VIAL SQ SCH ×7 (08:35→21:53)
[2017-08-03] MEDS: MORPHINE SULFATE ER 15 MG TABLET PO SCH ×2 (08:49→23:48)
[2017-08-03] MEDS ORDERED: ASPIRIN 325 MG TAB PO SCH (09:00)
--- NOTE | 2017-08-03 10:30 | P.HPIM ---
History of Present Illness H&P Date: 08/03/17 Chief Complaint: Chest pain This is a 72-year-old male with a known history of myocardial infarction, coronary artery disease, congestive heart failure, COPD, CVA, diabetes mellitus , hyperlipidemia, hypertension, liver cirrhosis and myasthenia gravis. Patient presents to the emergency room with complaints of chest pain and palpitations on the left side of his chest that radiated into his left shoulder and down his arm. Also was diaphoretic and short of breath. Patient reports that pain had woken up during the night. Patient had been admitted to the observation floor for and cardiology was consulted for chest pain. EKG had shown sinus rhythm with frequent PVCs. Troponins were negative 3 sets. Patient is scheduled for stress test. Patient reports he had a heart catheterization about 10 years ago and was told he did have some coronary artery disease but no stents were placed. Patient also reports having a fall in his bath about 3 weeks ago and complaining of lower back pain that radiates into the right side. X-ray of the lumbar spine has been ordered. Patient also having epigastric discomfort. Lipase was normal at 52 and LFTs are within normal range. Patient had EGD and colonoscopy completed on April 2017 showing candidiasis esophagitis, small distal esophageal and gastric varices without bleeding. And grade 2 internal hemorrhoids. Review of Systems Please refer to HPI otherwise unremarkable Past Medical History Past Medical History: Asthma, Coronary Artery Disease (CAD), Heart Failure, COPD , CVA/TIA, Diabetes Mellitus, Eye Disorder, GERD/Reflux, Hearing Disorder / Deafness, Hyperlipidemia, Hypertension, Liver Disease, Memory Impairment, Myocardial Infarction (NH), Pneumonia, Prostate Disorder, Seizure Disorder, Sleep Apnea/CPAP/BIPAP, Thyroid Disorder Additional Past Medical History / Comment(s): Pt concerned over wt loss of 50# over past 2 months-states he has an apetite and is eating but losing wt, EYES "BURNED" IN SERVICE-(gas can blew up). HX NH X2; POSS CVA. hx ulcer, "MEMORY PROB R/T HX head injury" NEUROPATHY AVA FEET, CHRONIC BACK PAIN, occasional cervical pain, no. cpap, ON O2 2L NC AT Night & PRN. DIFF SWALLOWING, constipation, liver-cirrhosis, anemia, enlarged spleen, heart murmur, L cataract , seizures with last seizure-pt thinks last seizure July 2016-states he has "mini-mals-I go out and can't wake up". Last Myocardial Infarction Date:: 1989 History of Any Multi-Drug Resistant Organisms: None Reported Past Surgical History: Heart Catheterization, Hernia Repair, Orthopedic Surgery , Tonsillectomy Additional Past Surgical History / Comment(s): 08/09/16 EGD. Other surgical hx: past EGD/colonoscopy 05/19, RT GREAT TOE JOINT, RT SHOULDER rotator cuff repair. rt cataract, bilateral inguinal hernia repairs & hydrocele repair Past Anesthesia/Blood Transfusion Reactions: Motion Sickness, Postoperative Nausea & Vomiting (PONV) Additional Past Anesthesia/Blood Transfusion Reaction / Comment(s): no hx blood transfusion Past Psychological History: Depression Additional Psychological History / Comment(s): Pt lives alone. He uses a cane to ambulate or a walker or scooter. He drives. 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 Smoking Status: Former smoker Past Alcohol Use History: None Reported Additional Past Alcohol Use History / Comment(s): quit smoking approx 50 yrs ago ,smoked in -very short time and little amount Past Drug Use History: None Reported - Past Family History Mother Family Medical History: Liver Disease, Pneumonia Additional Family Medical History / Comment(s): alcoholism Father Family Medical History: Cancer Additional Family Medical History / Comment(s): Father had lung cancer with mets to brain. He was a nonsmoker but his spouse smoked in the house. Medications and Allergies Home Medications Medication Instructions Recorded Confirmed Type Aspirin EC [Ecotrin] 325 mg PO DAILY 04/14/15 08/02/17 History Diltiazem Cd [Cardizem CD] 240 mg PO HS 04/14/15 08/02/17 History Finasteride [Proscar] 5 mg PO DAILY 04/14/15 08/02/17 History Furosemide [Lasix] 40 mg PO QAM 04/14/15 08/02/17 History Insulin Glargine [Lantus] 45 unit SQ HS 04/14/15 08/02/17 History Potassium Chloride [Klor-Con 10] 10 meq PO BID 04/14/15 08/02/17 History Cyanocobalamin (Vitamin B-12) 2,000 mcg PO DAILY 07/24/16 08/02/17 History [Vitamin B-12] Vitamin B Complex 1 cap PO DAILY 07/24/16 08/02/17 History Nitroglycerin Sl Tabs [Nitrostat] 0.4 mg SUBLINGUAL Q5M PRN #50 tab 09/22/16 Rx Ubidecarenone [Co Q-10] 100 mg PO DAILY 12/11/16 08/02/17 History Ascorbic Acid [Vitamin C] 1,000 mg PO DAILY 04/04/17 08/02/17 History Calcium Carbonate/Vitamin D3 2 tab PO BID 04/04/17 08/02/17 History [Calcium 600-Vit D3 400 Caplet] Docusate [Colace] 100 mg PO BID PRN 04/04/17 08/02/17 History Losartan [Cozaar] 50 mg PO DAILY@1400 04/04/17 08/02/17 History Morphine Sulfate ER [Ms Contin] 15 mg PO BID 04/04/17 08/02/17 History Multivitamins, Thera [Multivitamin 1 tab PO DAILY 04/04/17 08/02/17 History (formulary)] Polyethylene Glycol 3350 [Miralax] 17 gm PO TID PRN 04/04/17 08/02/17 History Pyridostigmine [place] [Mestinon] 60 mg PO Q4H 04/04/17 08/02/17 History Ranitidine HCl [Zantac] 150 mg PO BID 04/04/17 08/02/17 History Sennosides [Senna] 8.6 mg PO BID PRN 04/04/17 08/02/17 History Insulin Aspart [NovoLOG] See Protocol SQ ACHS 08/02/17 08/02/17 History Insulin Aspart [Novolog] 3 unit SQ PC-TID 08/02/17 08/02/17 History Isosorbide Mononitrate ER [Imdur] 30 mg PO DAILY 08/02/17 08/02/17 History Magnesium Oxide [Mag-Ox] 400 mg PO DAILY 08/02/17 08/02/17 History Pantoprazole Sodium [Protonix] 40 mg PO DAILY 08/02/17 08/02/17 History Spironolactone [Aldactone] 25 mg PO QID 08/02/17 08/02/17 History lamiVUDine [Epivir] 200 mg PO DAILY 08/02/17 08/02/17 History lamoTRIgine [LaMICtal] 100 mg PO BID 08/02/17 08/02/17 History predniSONE 15 mg PO DAILY 08/02/17 08/02/17 History Allergies Allergy/AdvReac Type Severity Reaction Status Date / Time methylprednisolone acetate Allergy Severe Anaphylaxis Verified 08/02/17 21:21 [From Depo-Medrol] cephalexin [From Keflex] Allergy Rash/Hives Verified 08/02/17 21:21 duloxetine [From Cymbalta] AdvReac Intense Verified 08/02/17 21:21 Flushing gabapentin [From Neurontin] AdvReac Tremors Verified 08/02/17 21:21 polyethylene glycol AdvReac Confusion Verified 08/02/17 21:21 [From Golytely] polyethylene glycol 3350 AdvReac Confusion Verified 08/02/17 21:21 [From Golytely] potassium chloride AdvReac Confusion Verified 08/02/17 21:21 [From Golytely] pregabalin [From Lyrica] AdvReac Intense Verified 08/02/17 21:21 [place] sodium [From Golytely] AdvReac Confusion Verified 08/02/17 21:21 sodium bicarbonate AdvReac Confusion Verified 08/02/17 21:21 [From Golytely] sodium chloride AdvReac Confusion Verified 08/02/17 21:21 [From Golytely] sodium sulfate AdvReac Confusion Verified 08/02/17 21:21 [From Golytely] sodium sulfate anhydrous AdvReac Confusion Verified 08/02/17 21:21 [From Golytely] Physical Exam Vitals: Vital Signs Temp Pulse Pulse Resp BP BP Pulse Ox 08/03/17 07:33 97.7 F 56 L 16 117/57 99 08/03/17 04:00 64 16 08/03/17 03:49 98.2 F 63 16 105/52 99 08/03/17 00:00 95 16 08/02/17 23:27 98.5 F 95 16 121/58 92 L 08/02/17 20:45 88 16 08/02/17 20:37 97.7 F 88 16 157/74 99 08/02/17 20:12 68 18 137/60 98 08/02/17 18:36 103 H 16 136/72 98 08/02/17 18:03 71 16 154/75 97 08/02/17 16:49 98.6 F 112 H 18 131/78 97 Intake and Output 08/02/17 08/03/17 08/03/17 22:59 06:59 14:59 Intake Total 480 1007.469 Balance 480 1007.469 Intake: Intake, IV Titration 480 457.469 Amount Heparin Sod,Pork in 0.45% 80 357.469 NaCl 25,000 unit In 0.45 % NaCl 1 500ml.bag @ 9.58 UNITS/KG/HR 19.98 mls/hr IV .Q24H MOISES Rx#: [id number] Sodium Chloride 0.9% 1, 400 100 000 ml @ 100 mls/hr IV . Q10H STA Rx#:[id number] Oral 550 Other: Voiding Method Toilet Toilet Toilet # Voids 3 Weight 102.92 kg Head normocephalic Neck supple Lungs clear to auscultation bilaterally no wheezing or crackles Heart regular rate and rhythm S1-S2, no rub or gallop Abdomen is soft epigastric tenderness nondistended positive bowel sounds no hepatosplenomegaly Extremities no edema Neuro alert and orientated to 3 Back: Tender with palpation of the lumbar muscles along the right side of the spine. No tenderness with palpation of the actual spine. No bruising or discoloration noted Results CBC & Chem 7: 08/03/17 05:17 08/02/17 17:40 Labs: Abnormal Lab Results - Last 24 Hours (Table) 08/02/17 08/02/17 08/02/17 Range/Units 17:40 17:40 17:40 RBC 4.25 L (4.30-5.90) m/uL Hgb 11.0 L (13.0-17.5) gm/dL Hct 34.9 L (39.0-53.0) % RDW 18.0 H (11.5-15.5) % Plt Count 133 L (150-450) k/uL Lymphocytes # 0.5 L (1.0-4.8) k/uL APTT (22.0-30.0) sec Sodium 132 L (137-145) mmol/L Glucose 219 H (74-99) mg/dL POC Glucose (mg/dL) (75-99) mg/dL Total Creatine Kinase 22 L (55-170) U/L HDL Cholesterol (40-60) mg/dL 08/02/17 08/02/17 08/02/17 Range/Units 17:40 21:42 23:19 RBC (4.30-5.90) m/uL Hgb (13.0-17.5) gm/dL Hct (39.0-53.0) % RDW (11.5-15.5) % Plt Count (150-450) k/uL Lymphocytes # (1.0-4.8) k/uL APTT 21.0 L (22.0-30.0) sec Sodium (137-145) mmol/L Glucose (74-99) mg/dL POC Glucose (mg/dL) 255 H (75-99) mg/dL Total Creatine Kinase 21 L (55-170) U/L HDL Cholesterol (40-60) mg/dL 08/03/17 08/03/17 08/03/17 Range/Units 05:17 05:17 05:17 RBC (4.30-5.90) m/uL Hgb (13.0-17.5) gm/dL Hct (39.0-53.0) % RDW (11.5-15.5) % Plt Count 126 L (150-450) k/uL Lymphocytes # (1.0-4.8) k/uL APTT (22.0-30.0) sec Sodium (137-145) mmol/L Glucose (74-99) mg/dL POC Glucose (mg/dL) (75-99) mg/dL Total Creatine Kinase <20 L (55-170) U/L HDL Cholesterol 69 H (40-60) mg/dL 08/03/17 08/03/17 08/03/17 Range/Units 05:17 05:48 06:24 RBC (4.30-5.90) m/uL Hgb (13.0-17.5) gm/dL Hct (39.0-53.0) % RDW (11.5-15.5) % Plt Count (150-450) k/uL Lymphocytes # (1.0-4.8) k/uL APTT 32.1 H (22.0-30.0) sec Sodium (137-145) mmol/L Glucose (74-99) mg/dL POC Glucose (mg/dL) 69 L 128 H (75-99) mg/dL Total Creatine Kinase (55-170) U/L HDL Cholesterol (40-60) mg/dL Thrombosis Risk Factor Assmnt - Choose All That Apply Each Factor Represents 1 point: Abnormal pulmonary function (COPD), Swollen legs (current) Each Risk Factor Represents 2 Points: Age 61-74 years Thrombosis Risk Factor Assessment Total Risk Factor Score: 4 Thrombosis Risk Factor Assessment Level: Moderate Risk Assessment and Plan Assessment: 1. Chest pain: Patient scheduled for stress test today by cardiology. Troponins were negative 3 sets. EKG showing a sinus rhythm with PVCs. Chest x -ray shows advanced pulmonary fibrosis no acute changes. Also check a d-dimer 2. History of myasthenia gravis 3. Epigastric abdominal pain. Lipase and LFTs are normal. Patient had EGD and colonoscopy April 2017. Results show leno esophagitis and small distal esophageal and gastric varices without bleeding. Patient is on Pepcid at home 20 mg twice a day 4. History of coronary artery disease and previous myocardial infarction 5. Essential hypertension 6. Diabetes mellitus, insulin-dependent 7. Hyponatremia on admission sodium 132. Repeat sodium level ordered 8. History of CVA 9. Thrombocytopenia: Platelets of 126. Prostatic chronic for patient. He does have a known history of liver cirrhosis patient reports due to medications and fatty liver. Monitor closely patient on IV heparin GI prophylaxis Pepcid and DVT prophylaxis IV heparin Time with Patient: Greater than 30 (Greater than 50% of the total time spent in counseling and coordination of care. I performed an examination of the patient and discussed their management with the physician Bilingual Teacher Assistant. I have reviewed the Physician Bilingual Teacher Assistant's notes and agree with the documented findings and plan of care)
[2017-08-03 11:01] LABS: ALT 26 U/L (21-72); AST 24 U/L (17-59); Albumin 2.9 g/dL (3.5-5.0); Alkaline Phosphatase 53 U/L (38-126); Anion Gap 5 mmol/L; Blood Urea Nitrogen 17 mg/dL (9-20); Calcium 9.3 mg/dL (8.4-10.2); Carbon Dioxide 26 mmol/L (22-30); Chloride 103 mmol/L (98-107); Glucose 66 mg/dL (74-99); Potassium 4.4 mmol/L (3.5-5.1); Sodium 134 mmol/L (137-145); Total Bilirubin 0.8 mg/dL (0.2-1.3); Total Protein 5.9 g/dL (6.3-8.2)
[2017-08-03 11:22] VITALS: BMI 30.6
--- NOTE | 2017-08-03 11:54 | NM ---
EXAMINATION TYPE: NM stress lexiscan cardiolite DATE OF EXAM: 08/03/2017 COMPARISON: NONE HISTORY: Chest pain TECHNIQUE: After the intravenous administration of 11 mCi Tc 99m Sestamibi - Cardiolite resting SPEC T images acquired 45 minutes post injection. The patient received 0.4mg Lexiscan, 30 mCi Tc 99m Sestamibi - Stress images obtained 30 minutes post injection FINDINGS: Review of stress and rest SPECT images demonstrates a small single segment defect within the apical l ateral segment on rest images with mild increase in intensity and extension into an additional latera l wall segment (2 segments total) on the stress images. Gated analysis shows normal wall motion with an estimated left ventricular ejection fraction of 70 %. TID of 1.15. IMPRESSION: 1. Small single segment fixed defect of the lateral wall with minimal increase in size and intensity on stress images suggestive of minimal keke-infarct ischemia. 2. Estimated left ventricular ejection fraction of 70%.
[2017-08-03 12:02] LABS: Anisocytosis Slight; Basophils % (A) 0 %; Eosinophils # (A) 0.1 k/uL (0-0.7); Eosinophils % (A) 0 %; HCT 36.2 % (39.0-53.0); HGB 10.9 gm/dL (13.0-17.5); Hypochromasia Moderate; Lymphocytes # (A) 1.7 k/uL (1.0-4.8); Lymphocytes % (A) 15 %; MCH 25.7 pg (25.0-35.0); MCV 85.5 fL (80.0-100.0); Mean Platelet Volume 7.7; Monocytes # (A) 0.8 k/uL (0-1.0); Monocytes % (A) 7 %; Neutrophils % (A) 76 %; Platelet Count 148 k/uL (150-450); Poikilocytosis Slight; RBC 4.24 m/uL (4.30-5.90); RDW 18.5 % (11.5-15.5); WBC 11.9 k/uL (3.8-10.6)
[2017-08-03] MEDS: ASPIRIN 325 MG TAB PO SCH (12:05)
[2017-08-03] MEDS: CALCIUM CARB-VIT D 500MG-200UN 1 EACH TAB PO SCH ×2 (12:06→21:28)
[2017-08-03] MEDS: ATORVASTATIN 80 MG TAB PO SCH (12:06)
[2017-08-03] MEDS: FAMOTIDINE 20 MG TAB PO SCH ×2 (12:06→21:28)
[2017-08-03] MEDS: CYANOCOBALAMIN 500 MCG TAB PO SCH (12:06)
[2017-08-03] MEDS: FINASTERIDE 5 MG TAB PO SCH (12:07)
[2017-08-03] MEDS: ASCORBIC ACID 500 MG TAB PO SCH (12:07)
[2017-08-03] MEDS: PANTOPRAZOLE 40 MG TABLET PO SCH (12:07)
[2017-08-03] MEDS: B COMPLEX-VIT C-VIT E-ZINC 1 EACH TAB PO SCH (12:07)
[2017-08-03] MEDS: SPIRONOLACTONE 25 MG TAB PO SCH ×4 (12:07→21:55)
[2017-08-03 12:08] LABS: Glucose,Whole Blood 76 mg/dL (75-99)
[2017-08-03] MEDS: MULTIVITAMINS, THERA 1 EACH TAB PO SCH (12:08)
[2017-08-03] MEDS: FUROSEMIDE 40 MG TAB PO SCH (12:08)
[2017-08-03] MEDS: ISOSORBIDE MONONITRATE ER 30 MG TAB.ER.24H PO SCH (12:08)
[2017-08-03] MEDS: METOPROLOL TARTRATE 25 MG TAB PO SCH ×2 (12:08→21:28)
[2017-08-03] MEDS: lamoTRIgine 100 MG TAB PO SCH ×2 (12:08→21:28)
[2017-08-03] MEDS: MAGNESIUM OXIDE 400 MG TAB PO SCH (12:09)
[2017-08-03] MEDS: predniSONE 5 MG TAB PO SCH (12:09)
[2017-08-03] MEDS: POTASSIUM CHLORIDE ER 10 MEQ TAB.ER.PRT PO SCH ×2 (12:09→21:55)
[2017-08-03] MEDS: LAMIVUDINE PO SCH (13:08)
[2017-08-03] MEDS: NON-FORMULARY DRUG (Ubidecarenone [Co Q-10] 100 MG) PO SCH (13:08)
[2017-08-03] MEDS ORDERED: ASPIRIN 325 MG TAB PO STA (13:14)
[2017-08-03] MEDS ORDERED: ALPRAZolam 0.5 MG TAB PO PRN (13:14)
[2017-08-03] MEDS ORDERED: ATORVASTATIN 80 MG TAB PO STA (13:14)
[2017-08-03] MEDS ORDERED: NITROGLYCERIN SL TABS 0.4 MG TAB SUBLINGUAL PRN (13:14)
[2017-08-03] MEDS ORDERED: ALPRAZolam 0.25 MG TAB PO PRN (13:14)
[2017-08-03] MEDS ORDERED: SODIUM CHLORIDE 0.9% 1,000 ML in EMPTY BAG 1 BAG IV ONE (13:14)
--- NOTE | 2017-08-03 13:47 | XR ---
Lumbar spine HISTORY: Back pain 3 views of the lumbar spine correlated to previous exam 05/30/2016 There is a levoscoliosis centered at L3. Loss of disc height present at the intervertebral levels, va cuum phenomenon again noted at L2-3, L3-4. Lumbar vertebral bodies show preserved height. Bone minera lization is stable. There is multilevel spondylosis. Sclerosis present in the posterior elements comp atible with facet arthropathy. Atherosclerotic vascular calcifications noted in the aorta. Suspect in terstitial lung disease at the lung bases. IMPRESSION: Scoliosis, degenerative disc disease, facet arthropathy. Interstitial lung disease. Perip heral vascular disease.
[2017-08-03] MEDS: PYRIDOSTIGMINE 60 MG TAB PO SCH ×3 (14:37→21:56)
[2017-08-03] MEDS: LOSARTAN 50 MG TAB PO SCH (14:37)
[2017-08-03 17:26] LABS: Glucose,Whole Blood 233 mg/dL (75-99)
[2017-08-03 20:48] LABS: Glucose,Whole Blood 214 mg/dL (75-99)
[2017-08-03] MEDS: DILTIAZEM CD 240 MG CAP.ER.24H PO SCH (21:28)
[2017-08-03] MEDS: INSULIN DETEMIR 100 UNIT/ML 10 ML VIAL SQ SCH (21:43)
[2017-08-04] MEDS: PYRIDOSTIGMINE 60 MG TAB PO SCH ×6 (03:19→23:59)
[2017-08-04 06:57] LABS: Glucose,Whole Blood 116 mg/dL (75-99)
[2017-08-04 07:41] LABS: Mean Platelet Volume 7.8; Platelet Count 155 k/uL (150-450)
[2017-08-04] MEDS: INSULIN ASPART 100 UNIT/ML 1 ML 10 ML VIAL SQ SCH ×7 (08:28→21:10)
[2017-08-04] MEDS: ASPIRIN 325 MG TAB PO SCH (08:29)
[2017-08-04] MEDS: lamoTRIgine 100 MG TAB PO SCH ×2 (08:29→21:08)
[2017-08-04] MEDS: predniSONE 5 MG TAB PO SCH (08:29)
[2017-08-04] MEDS: POTASSIUM CHLORIDE ER 10 MEQ TAB.ER.PRT PO SCH ×2 (08:29→23:59)
[2017-08-04] MEDS: ISOSORBIDE MONONITRATE ER 30 MG TAB.ER.24H PO SCH (08:30)
[2017-08-04] MEDS: FAMOTIDINE 20 MG TAB PO SCH ×2 (08:30→21:08)
[2017-08-04] MEDS: SPIRONOLACTONE 25 MG TAB PO SCH ×3 (08:30→17:20)
[2017-08-04] MEDS: METOPROLOL TARTRATE 25 MG TAB PO SCH ×2 (08:31→21:08)
[2017-08-04] MEDS: FINASTERIDE 5 MG TAB PO SCH (08:31)
[2017-08-04] MEDS: ATORVASTATIN 80 MG TAB PO SCH (08:32)
[2017-08-04] MEDS: FUROSEMIDE 40 MG TAB PO SCH (08:33)
[2017-08-04] MEDS: MAGNESIUM OXIDE 400 MG TAB PO SCH (08:33)
[2017-08-04] MEDS: PANTOPRAZOLE 40 MG TABLET PO SCH (08:35)
[2017-08-04 08:36] LABS: Anisocytosis Slight; Basophils % (A) 0 %; Eosinophils # (A) 0.1 k/uL (0-0.7); Eosinophils % (A) 1 %; HCT 34.7 % (39.0-53.0); HGB 10.6 gm/dL (13.0-17.5); Hypochromasia Moderate; Lymphocytes # (A) 1.4 k/uL (1.0-4.8); Lymphocytes % (A) 15 %; MCH 25.7 pg (25.0-35.0); MCHC 30.5 g/dL (31.0-37.0); MCV 84.2 fL (80.0-100.0); Mean Platelet Volume 7.3; Monocytes # (A) 0.6 k/uL (0-1.0); Monocytes % (A) 6 %; Neutrophils # (A) 7.4 k/uL (1.3-7.7); Neutrophils % (A) 77 %; Platelet Count 155 k/uL (150-450); Poikilocytosis Slight; RBC 4.12 m/uL (4.30-5.90); RDW 17.5 % (11.5-15.5); WBC 9.7 k/uL (3.8-10.6)
[2017-08-04] MEDS: MORPHINE SULFATE ER 15 MG TABLET PO SCH ×2 (08:43→21:19)
[2017-08-04 08:49] LABS: ALT 29 U/L (21-72); AST 21 U/L (17-59); Albumin 3.2 g/dL (3.5-5.0); Alkaline Phosphatase 59 U/L (38-126); Anion Gap 8 mmol/L; Blood Urea Nitrogen 21 mg/dL (9-20); Carbon Dioxide 25 mmol/L (22-30); Chloride 100 mmol/L (98-107); Glucose 103 mg/dL (74-99); Potassium 4.6 mmol/L (3.5-5.1); Sodium 133 mmol/L (137-145); Total Bilirubin 0.8 mg/dL (0.2-1.3); Total Protein 6.4 g/dL (6.3-8.2)
--- NOTE | 2017-08-04 10:09 | P.PN ---
Subjective Progress Note Date: 08/04/17 Mr. Sánchez is a pleasant 72-year-old male being seen today in follow- up for initial consultation for complaints of chest pain. He states he has had no further episodes of chest pain since admission. Lexiscan stress test was performed yesterday reveals a small single segment fixed defect of the lateral wall with minimal increase in size and intensity on stress images suggestive of minimal keke-infarct ischemia. These results have been discussed with the patient in detail and cardiac catheterization has been recommended. I have discussed the risks, benefits and alternative therapies for the above-mentioned procedure and for both sedation/analgesia as well as necessary blood product administration, if indicated, as they pertain to this patient. The patient has indicated understanding and acceptance of the risks and procedures discussed. Creatinine 1.12. Has been NPO since midnight. Objective - Vital Signs Vital signs: Vital Signs Temp 98.0 F 08/04/17 07:47 Pulse 63 08/04/17 07:47 Resp 18 08/04/17 07:47 BP 119/51 08/04/17 07:47 Pulse Ox 96 08/04/17 07:47 Intake & Output 08/03/17 08/04/17 08/04/17 18:59 06:59 18:59 Intake Total 450 Balance 450 Weight 102.512 kg 102.512 kg Intake: Oral 450 Other: Voiding Method Toilet Toilet Toilet # Voids 1 - Exam Blood pressure 119/51 heart rate 63 afebrile GENERAL: This is a 72-year-old male in no apparent distress at the time of my examination. HEENT: Head is atraumatic, normocephalic. Pupils are equal, round. Sclerae anicteric. Conjunctivae are clear. Mucous membranes of the mouth are moist. Neck is supple. There is no jugular venous distention. No carotid bruit is heard. LUNGS: Clear to auscultation no wheezes, rales or rhonchi. No chest wall tenderness is noted on palpation or with deep breathing. HEART: Regular rate and rhythm with systolic ejection murmur, no rubs or gallops. S1 and S2 heard. ABDOMEN: Soft, nontender. Bowel sounds are heard. No organomegaly noted. EXTREMITIES: No evidence of peripheral edema and no calf tenderness noted. VASCULAR: Radial and dorsalis pedis pulses palpated, no evidence of clubbing. NEUROLOGIC: Patient is awake, alert and oriented x3. - Labs CBC & Chem 7: 08/04/17 06:12 08/04/17 06:12 Labs: Abnormal Lab Results - Last 24 Hours (Table) 08/02/17 08/03/17 08/03/17 Range/Units 23:19 05:17 11:47 WBC 11.9 H (3.8-10.6) k/uL RBC 4.24 L (4.30-5.90) m/uL Hgb 10.9 L (13.0-17.5) gm/dL Hct 36.2 L (39.0-53.0) % MCHC 30.0 L (31.0-37.0) g/dL RDW 18.5 H (11.5-15.5) % Plt Count 148 L (150-450) k/uL Neutrophils # 9.0 H (1.3-7.7) k/uL Sodium 134 L (137-145) mmol/L BUN (9-20) mg/dL Glucose 66 L (74-99) mg/dL POC Glucose (mg/dL) (75-99) mg/dL Hemoglobin A1c 8.0 H (4.0-6.0) % Total Protein 5.9 L (6.3-8.2) g/dL Albumin 2.9 L (3.5-5.0) g/dL HDL Cholesterol 69 H (40-60) mg/dL 08/03/17 08/03/17 08/04/17 Range/Units 17:22 20:46 06:12 WBC (3.8-10.6) k/uL RBC (4.30-5.90) m/uL Hgb (13.0-17.5) gm/dL Hct (39.0-53.0) % MCHC (31.0-37.0) g/dL RDW (11.5-15.5) % Plt Count (150-450) k/uL Neutrophils # (1.3-7.7) k/uL Sodium 133 L (137-145) mmol/L BUN 21 H (9-20) mg/dL Glucose 103 H (74-99) mg/dL POC Glucose (mg/dL) 233 H 214 H (75-99) mg/dL Hemoglobin A1c (4.0-6.0) % Total Protein (6.3-8.2) g/dL Albumin 3.2 L (3.5-5.0) g/dL HDL Cholesterol (40-60) mg/dL 08/04/17 08/04/17 Range/Units 06:12 06:56 WBC (3.8-10.6) k/uL RBC 4.12 L (4.30-5.90) m/uL Hgb 10.6 L (13.0-17.5) gm/dL Hct 34.7 L (39.0-53.0) % MCHC 30.5 L (31.0-37.0) g/dL RDW 17.5 H (11.5-15.5) % Plt Count (150-450) k/uL Neutrophils # (1.3-7.7) k/uL Sodium (137-145) mmol/L BUN (9-20) mg/dL Glucose (74-99) mg/dL POC Glucose (mg/dL) 116 H (75-99) mg/dL Hemoglobin A1c (4.0-6.0) % Total Protein (6.3-8.2) g/dL Albumin (3.5-5.0) g/dL HDL Cholesterol (40-60) mg/dL Assessment and Plan Assessment: ASSESSMENT 1. Chest pain, atypical 2. History of known coronary artery disease 3. HYpertension 4. Dyslipidemia 5. Diabetes mellitus 6. COPD 7. Dyslipidemia PLAN Proceed with cardiac catheterization as was discussed with the patient. Questions have been answered appropriately and he is in agreement to move forward. Further recommendations will be based upon clinical course. Nurse Practitioner note has been reviewed, I agree with a documented findings and plan of care. Patient was seen and examined.
[2017-08-04 12:07] LABS: Glucose,Whole Blood 163 mg/dL (75-99)
--- NOTE | 2017-08-04 12:30 | P.PN ---
Subjective Progress Note Date: 08/04/17 This is a 72-year-old male with a known history of myocardial infarction, coronary artery disease, congestive heart failure, COPD, CVA, diabetes mellitus , hyperlipidemia, hypertension, liver cirrhosis and myasthenia gravis. Patient presents to the emergency room with complaints of chest pain and palpitations on the left side of his chest that radiated into his left shoulder and down his arm. Also was diaphoretic and short of breath. Patient reports that pain had woken up during the night. Patient had been admitted to the observation floor for and cardiology was consulted for chest pain. EKG had shown sinus rhythm with frequent PVCs. Troponins were negative 3 sets. Patient is scheduled for stress test. Patient reports he had a heart catheterization about 10 years ago and was told he did have some coronary artery disease but no stents were placed. Patient also reports having a fall in his bath about 3 weeks ago and complaining of lower back pain that radiates into the right side. X-ray of the lumbar spine has been ordered. Patient also having epigastric discomfort. Lipase was normal at 52 and LFTs are within normal range. Patient had EGD and colonoscopy completed on April 2017 showing candidiasis esophagitis, small distal esophageal and gastric varices without bleeding. And grade 2 internal hemorrhoids. 08/04/2017 patient had abnormal stress test yesterday. He is scheduled heart catheterization today. He denies any further episodes of chest pain. Did admit to having some dizziness earlier today when To use the restroom. That has now resolved. Objective - Vital Signs Vital signs: Vital Signs Temp 97.7 F 08/04/17 11:48 Pulse 54 L 08/04/17 11:48 Resp 18 08/04/17 11:48 BP 120/57 08/04/17 11:48 Pulse Ox 94 L 08/04/17 11:48 Intake & Output 08/03/17 08/04/17 08/04/17 18:59 06:59 18:59 Intake Total 450 Balance 450 Weight 102.512 kg 102.512 kg Intake: Oral 450 Other: Voiding Method Toilet Toilet Toilet # Voids 1 - Exam Head normocephalic Neck supple Lungs clear to auscultation bilaterally no wheezing or crackles Heart regular rate and rhythm S1-S2, no rub or gallop Abdomen is soft mild epigastric tenderness nondistended positive bowel sounds no hepatosplenomegaly Extremities no edema Neuro alert and orientated to 3 - Labs CBC & Chem 7: 08/04/17 06:12 08/04/17 06:12 Labs: Abnormal Lab Results - Last 24 Hours (Table) 08/02/17 08/03/17 08/03/17 Range/Units 23:19 17:22 20:46 RBC (4.30-5.90) m/uL Hgb (13.0-17.5) gm/dL Hct (39.0-53.0) % MCHC (31.0-37.0) g/dL RDW (11.5-15.5) % Sodium (137-145) mmol/L BUN (9-20) mg/dL Glucose (74-99) mg/dL POC Glucose (mg/dL) 233 H 214 H (75-99) mg/dL Hemoglobin A1c 8.0 H (4.0-6.0) % Albumin (3.5-5.0) g/dL 08/04/17 08/04/17 08/04/17 Range/Units 06:12 06:12 06:56 RBC 4.12 L (4.30-5.90) m/uL Hgb 10.6 L (13.0-17.5) gm/dL Hct 34.7 L (39.0-53.0) % MCHC 30.5 L (31.0-37.0) g/dL RDW 17.5 H (11.5-15.5) % Sodium 133 L (137-145) mmol/L BUN 21 H (9-20) mg/dL Glucose 103 H (74-99) mg/dL POC Glucose (mg/dL) 116 H (75-99) mg/dL Hemoglobin A1c (4.0-6.0) % Albumin 3.2 L (3.5-5.0) g/dL 08/04/17 Range/Units 12:05 RBC (4.30-5.90) m/uL Hgb (13.0-17.5) gm/dL Hct (39.0-53.0) % MCHC (31.0-37.0) g/dL RDW (11.5-15.5) % Sodium (137-145) mmol/L BUN (9-20) mg/dL Glucose (74-99) mg/dL POC Glucose (mg/dL) 163 H (75-99) mg/dL Hemoglobin A1c (4.0-6.0) % Albumin (3.5-5.0) g/dL Assessment and Plan Assessment: 1. Chest pain: Positive stress test. Patient scheduled for heart catheterization today. Troponins were negative 3 sets. EKG showing a sinus rhythm with PVCs. Chest x-ray shows advanced pulmonary fibrosis no acute changes. D-dimer normal range. 2. History of myasthenia gravis 3. Epigastric abdominal pain. Appears to be improving. Continue with his pepcid. Lipase and LFTs are normal. Patient had EGD and colonoscopy April 2017. Results show leno esophagitis and small distal esophageal and gastric varices without bleeding. Patient is on Pepcid at home 20 mg twice a day 4. History of coronary artery disease and previous myocardial infarction 5. Essential hypertension 6. Diabetes mellitus, insulin-dependent 7. Hyponatremia on admission sodium 132. slowly improving sodium level 133 8. History of CVA 9. Thrombocytopenia: Platelets 126 now up to 155. appears to be chronic for patient. He does have a known history of liver cirrhosis patient reports due to medications and fatty liver.
--- NOTE | 2017-08-04 13:47 | EST ---
EXERCISE STRESS DATE OF SERVICE: 08/03/2017 AGE: 72 SEX: Male HT: 6' WT: 226 pounds PROTOCOL: LEXISCAN CARDIOLITE STAGE: DURATION OF EXERCISE: HEART RATE REST: 62 BLOOD PRESSURE REST: 102/51 MAXIMUM HEART RATE ACHIEVED: 70 MAXIMUM BLOOD PRESSURE: 123/51 85% MPHR: 126 100% MPHR: 148 METS: INDICATION OF THE STUDY: Chest pain. CLINICAL INFORMATION: STRESS DATA: Pretesting physical examination showed a heart rate of 62, pressure is 102/51 mmHg. Baseline EKG showed sinus rhythm. A 0.4 mg of Lexiscan was given physician for 15 seconds per protocol. The max heart rate was 62 beats per minute and maximum pressure was 102/51 mmHg. Clinically the patient developed chest pressure and back discomfort as well. The EKG did not show any significant ST or T-wave abnormalities consistent with ischemia. CONCLUSION: 1. Nondiagnostic electrocardiogram stress testing in response to Lexiscan. 2. Please follow up on the Cardiolite portion on separate report from radiology department. MMODL / IJN: [id number] /
[2017-08-04] MEDS: LAMIVUDINE PO SCH (17:03)
[2017-08-04 17:09] LABS: Glucose,Whole Blood 247 mg/dL (75-99)
[2017-08-04] MEDS: ASCORBIC ACID 500 MG TAB PO SCH (17:16)
[2017-08-04] MEDS: CYANOCOBALAMIN 500 MCG TAB PO SCH (17:16)
[2017-08-04] MEDS: CALCIUM CARB-VIT D 500MG-200UN 1 EACH TAB PO SCH ×2 (17:17→21:09)
[2017-08-04] MEDS: MULTIVITAMINS, THERA 1 EACH TAB PO SCH (17:17)
[2017-08-04] MEDS: B COMPLEX-VIT C-VIT E-ZINC 1 EACH TAB PO SCH (17:18)
[2017-08-04] MEDS: LOSARTAN 50 MG TAB PO SCH (17:19)
[2017-08-04] MEDS: NON-FORMULARY DRUG (Ubidecarenone [Co Q-10] 100 MG) PO SCH (20:24)
[2017-08-04 21:06] LABS: Glucose,Whole Blood 160 mg/dL (75-99)
[2017-08-04] MEDS: DILTIAZEM CD 240 MG CAP.ER.24H PO SCH (21:10)
[2017-08-04] MEDS: INSULIN DETEMIR 100 UNIT/ML 10 ML VIAL SQ SCH (21:11)
[2017-08-05 05:48] VITALS: RESP 18
[2017-08-05 06:49] LABS: Glucose,Whole Blood 75 mg/dL (75-99)
[2017-08-05 07:17] LABS: Glucose,Whole Blood 90 mg/dL (75-99)
[2017-08-05 07:26] LABS: Platelet Count 156 k/uL (150-450)
[2017-08-05] MEDS: MORPHINE SULFATE ER 15 MG TABLET PO SCH (08:29)
[2017-08-05] MEDS: ASPIRIN 325 MG TAB PO SCH (08:30)
[2017-08-05] MEDS: lamoTRIgine 100 MG TAB PO SCH (08:31)
[2017-08-05] MEDS: ISOSORBIDE MONONITRATE ER 30 MG TAB.ER.24H PO SCH (08:31)
[2017-08-05] MEDS: ATORVASTATIN 80 MG TAB PO SCH (08:31)
[2017-08-05] MEDS: METOPROLOL TARTRATE 25 MG TAB PO SCH (08:31)
[2017-08-05] MEDS: SPIRONOLACTONE 25 MG TAB PO SCH ×3 (08:33→12:54)
[2017-08-05] MEDS: predniSONE 5 MG TAB PO SCH (08:33)
[2017-08-05] MEDS: INSULIN ASPART 100 UNIT/ML 1 ML 10 ML VIAL SQ SCH ×4 (08:38→14:23)
[2017-08-05 09:31] VITALS: TEMP 97.7
[2017-08-05] MEDS ORDERED: LIDOCAINE 2% INJ 20 MG/ML (20 ML MDV) ONE (09:44)
[2017-08-05] MEDS ORDERED: MIDAZOLAM 2 MG/2 ML VIAL ONE (09:44)
[2017-08-05] MEDS ORDERED: HEPARIN SODIUM 1,000 UN/ML (10ML VL) ONE (09:44)
[2017-08-05] MEDS ORDERED: VERAPAMIL 2.5 MG/ML 2 ML AMP ONE (09:44)
[2017-08-05] MEDS ORDERED: IV FLUID CONTINUATION 1,000 ML IV ONE (09:53)
[2017-08-05] MEDS: MIDAZOLAM 2 MG/2 ML VIAL IV ONE ×2 (09:54→09:58)
[2017-08-05] MEDS ORDERED: HEPARIN SODIUM 1,000 UN/ML (10ML VL) IV ONE (10:11)
[2017-08-05] MEDS ORDERED: IOHEXOL 350 MG/ML 125ML BOTTLE INJ ONE (10:22)
[2017-08-05] MEDS ORDERED: RX INFO: IV CONTRAST WAS GIVEN 1 EACH MISC MISCELLANE PRN (10:28)
[2017-08-05] MEDS ORDERED: SODIUM CHLORIDE 0.9% 1,000 ML IV SCH (10:30)
--- NOTE | 2017-08-05 10:46 | LTR ---
DATE OF SERVICE: 08/05/[address] Osorio: Mr. Duke Sánchez underwent heart catheterization and view of abnormal stress test. The heart catheterization revealed normal coronaries. I want to thank you for allowing us to participate in his care. Sincerely, VIPUL / MALDONADO: [id number] /
--- NOTE | 2017-08-05 10:52 | CC ---
CARDIAC CATHETERIZATION REPORT DATE OF SERVICE: 08/05/2017 PERFORMING PHYSICIAN: Nicholas Garcia MD, snap attacher. PROCEDURE PERFORMED: 1. Selective right and left coronary angiogram. 2. Left heart catheterization. INDICATION: This is a pleasant 72-year-old gentleman who sees Dr. Osorio as an outpatient and does not follow with any chapter relations administrator who presented to the hospital with chest discomfort and underwent myocardial perfusion imaging stress test and that revealed ischemia. In view of that, a heart catheterization was recommended. APPROACH: Right radial artery. COMPLICATION: None. LEVEL OF SEDATION: Moderate with sedation length of 14 minutes. PROCEDURE DESCRIPTION: After obtaining an informed consent, the patient was brought to the cardiac incinerator plant laborer. The right radial artery was cannulated using micropuncture technique, and the micropuncture wire passed easily then I placed a 6-Moroccan sheath in the right radial artery. Subsequently I gave the patient 2 mg of verapamil IA and 10,000 units of heparin IV. After that I did selective right and left coronary angiogram using JR4 and JL3.5 catheters. I did also left heart catheterization using 6-Moroccan pigtail catheter. The procedure was completed without any complication. SELECTIVE CORONARY ANGIOGRAM: 1. The RCA is a large caliber vessel, and it is a dominant vessel. The RCA is angiographically normal. It distally bifurcates into PDA and PLV branches, both are angiographically normal. 2. The left main is angiographically normal. It bifurcates into left circumflex, ramus intermedius, and left anterior descending artery. 3. The left circumflex is a large caliber vessel. It is a nondominant vessel. The left circumflex system is normal. In the midportion, it gives rise into a large OM branch which seems to be angiographically normal. 4. The ramus intermedius is a large caliber vessel and seems to be angiographically normal. 5. The LAD; the proximal LAD is angiographically normal. It gives rise into the first diagonal branch which seems to be normal. The mid LAD is normal and the LAD distally is normal as well. HEMODYNAMICS: The left ventricular end-diastolic pressure was 12 mmHg and no gradient was identified across the aortic valve. CONCLUSION: 1. Normal coronary angiogram. 2. Normal left ventricular end-diastolic pressure. POSTPROCEDURE MANAGEMENT: Maximize medical treatment and follow up with the patient. MMODL / IJN: [id number] /
--- NOTE | 2017-08-05 11:25 | P.DS ---
Providers Date of admission: 08/03/17 16:11 Attending physician: Josr Osorio Consults: 08/02/17 19:29 Consult Physician Urgent Consulting Provider: Iveth Handley Consult Reason/Comments: cp Do you want consulting provider notified?: Yes Primary care physician: Josr [facility] Course: 1. Chest pain: Positive stress test by left heart catheterization showed normal coronary arteries. Troponins were negative 3 sets. EKG showing a sinus rhythm with PVCs. Chest x -ray shows advanced pulmonary fibrosis no acute changes. D-dimer normal range. 2. History of myasthenia gravis 3. Epigastric abdominal pain. Appears to be improving. Continue with his pepcid. Lipase and LFTs are normal. Patient had EGD and colonoscopy April 2017. Results show leno esophagitis and small distal esophageal and gastric varices without bleeding. Patient is on Pepcid at home 20 mg twice a day 4. History of coronary artery disease and previous myocardial infarction 5. Essential hypertension 6. Diabetes mellitus, insulin-dependent 7. Hyponatremia on admission sodium 132. slowly improving sodium level 133 8. History of CVA Patient will be discharged home in a stable condition. Follow-up with his PCP in 2-3 days. Patient Condition at Discharge: Undetermined Plan - Discharge Summary Discharge Rx Participant: No New Discharge Prescriptions: No Action Potassium Chloride [Klor-Con 10] 10 meq PO BID Furosemide [Lasix] 40 mg PO QAM Aspirin EC [Ecotrin] 325 mg PO DAILY Insulin Glargine [Lantus] 45 unit SQ HS Diltiazem Cd [Cardizem CD] 240 mg PO HS Finasteride [Proscar] 5 mg PO DAILY Cyanocobalamin (Vitamin B-12) [Vitamin B-12] 2,000 mcg PO DAILY Vitamin B Complex 1 cap PO DAILY Nitroglycerin Sl Tabs [Nitrostat] 0.4 mg SUBLINGUAL Q5M PRN #50 tab PRN Reason: Chest Pain Ubidecarenone [Co Q-10] 100 mg PO DAILY Sennosides [Senna] 8.6 mg PO BID PRN PRN Reason: Constipation Ranitidine HCl [Zantac] 150 mg PO BID Pyridostigmine [place] [Mestinon] 60 mg PO Q4H Polyethylene Glycol 3350 [Miralax] 17 gm PO TID PRN PRN Reason: Constipation Multivitamins, Thera [Multivitamin (formulary)] 1 tab PO DAILY Morphine Sulfate ER [Ms Contin] 15 mg PO BID Losartan [Cozaar] 50 mg PO DAILY@1400 Docusate [Colace] 100 mg PO BID PRN PRN Reason: Constipation Calcium Carbonate/Vitamin D3 [Calcium 600-Vit D3 400 Caplet] 2 tab PO BID Ascorbic Acid [Vitamin C] 1,000 mg PO DAILY Isosorbide Mononitrate ER [Imdur] 30 mg PO DAILY lamiVUDine [Epivir] 200 mg PO DAILY Magnesium Oxide [Mag-Ox] 400 mg PO DAILY Pantoprazole Sodium [Protonix] 40 mg PO DAILY predniSONE 15 mg PO DAILY Spironolactone [Aldactone] 25 mg PO QID lamoTRIgine [LaMICtal] 100 mg PO BID Insulin Aspart [NovoLOG] See Protocol SQ ACHS Insulin Aspart [Novolog] 3 unit SQ PC-TID Discharge Medication List Aspirin EC [Ecotrin] 325 mg PO DAILY 04/14/15 [History] Diltiazem Cd [Cardizem CD] 240 mg PO HS 04/14/15 [History] Finasteride [Proscar] 5 mg PO DAILY 04/14/15 [History] Furosemide [Lasix] 40 mg PO QAM 04/14/15 [History] Insulin Glargine [Lantus] 45 unit SQ HS 04/14/15 [History] Potassium Chloride [Klor-Con 10] 10 meq PO BID 04/14/15 [History] Cyanocobalamin (Vitamin B-12) [Vitamin B-12] 2,000 mcg PO DAILY 07/24/16 [ History] Vitamin B Complex 1 cap PO DAILY 07/24/16 [History] Nitroglycerin Sl Tabs [Nitrostat] 0.4 mg SUBLINGUAL Q5M PRN #50 tab 09/22/16 [Rx ] Ubidecarenone [Co Q-10] 100 mg PO DAILY 12/11/16 [History] Ascorbic Acid [Vitamin C] 1,000 mg PO DAILY 04/04/17 [History] Calcium Carbonate/Vitamin D3 [Calcium 600-Vit D3 400 Caplet] 2 tab PO BID [History] Docusate [Colace] 100 mg PO BID PRN 04/04/17 [History] Losartan [Cozaar] 50 mg PO DAILY@1400 04/04/17 [History] Morphine Sulfate ER [Ms Contin] 15 mg PO BID 04/04/17 [History] Multivitamins, Thera [Multivitamin (formulary)] 1 tab PO DAILY 04/04/17 [History ] Polyethylene Glycol 3350 [Miralax] 17 gm PO TID PRN 04/04/17 [History] Pyridostigmine [place] [Mestinon] 60 mg PO Q4H 04/04/17 [History] Ranitidine HCl [Zantac] 150 mg PO BID 04/04/17 [History] Sennosides [Senna] 8.6 mg PO BID PRN 04/04/17 [History] Insulin Aspart [NovoLOG] See Protocol SQ ACHS 08/02/17 [History] Insulin Aspart [Novolog] 3 unit SQ PC-TID 08/02/17 [History] Isosorbide Mononitrate ER [Imdur] 30 mg PO DAILY 08/02/17 [History] Magnesium Oxide [Mag-Ox] 400 mg PO DAILY 08/02/17 [History] Pantoprazole Sodium [Protonix] 40 mg PO DAILY 08/02/17 [History] Spironolactone [Aldactone] 25 mg PO QID 08/02/17 [History] lamiVUDine [Epivir] 200 mg PO DAILY 08/02/17 [History] lamoTRIgine [LaMICtal] 100 mg PO BID 08/02/17 [History] predniSONE 15 mg PO DAILY 08/02/17 [History] Follow up Appointment(s)/Referral(s): Nicholas Garcia MD [STAFF PHYSICIAN] - 3 Weeks Josr Osorio MD [Primary Care Provider] - 1-2 days
[2017-08-05] MEDS: LAMIVUDINE PO SCH (11:50)
[2017-08-05] MEDS: NON-FORMULARY DRUG (Ubidecarenone [Co Q-10] 100 MG) PO SCH (11:51)
[2017-08-05] MEDS: MULTIVITAMINS, THERA 1 EACH TAB PO SCH (11:52)
[2017-08-05] MEDS: ASCORBIC ACID 500 MG TAB PO SCH (11:52)
[2017-08-05] MEDS: FUROSEMIDE 40 MG TAB PO SCH (11:52)
[2017-08-05] MEDS: FAMOTIDINE 20 MG TAB PO SCH (11:52)
[2017-08-05] MEDS: POTASSIUM CHLORIDE ER 10 MEQ TAB.ER.PRT PO SCH (11:52)
[2017-08-05] MEDS: B COMPLEX-VIT C-VIT E-ZINC 1 EACH TAB PO SCH (11:52)
[2017-08-05] MEDS: MAGNESIUM OXIDE 400 MG TAB PO SCH (11:52)
[2017-08-05] MEDS: CYANOCOBALAMIN 500 MCG TAB PO SCH (11:52)
[2017-08-05] MEDS: CALCIUM CARB-VIT D 500MG-200UN 1 EACH TAB PO SCH (11:52)
[2017-08-05] MEDS: PYRIDOSTIGMINE 60 MG TAB PO SCH ×3 (11:53→14:26)
[2017-08-05] MEDS: FINASTERIDE 5 MG TAB PO SCH (11:53)
[2017-08-05 11:59] LABS: Glucose,Whole Blood 186 mg/dL (75-99)
[2017-08-05] MEDS: PANTOPRAZOLE 40 MG TABLET PO SCH (12:26)
[2017-08-05 13:43] VITALS: BP 119/58; PULSE 63
[2017-08-05] MEDS: LOSARTAN 50 MG TAB PO SCH (14:26)
[2017-08-05 17:05] LABS: Glucose,Whole Blood 165 mg/dL (75-99)
== END 2017-08-05 17:13 | disposition home or self-care (01) | DRG 287 ==
LOC: EC 16:42 → 3OBS 19:29 → OBSVTOIN 08-03 16:11
PROVIDERS: ADMIT Internal Medicine; ATTEND Internal Medicine
PROC: B2111ZZ Fluoroscopy of Multiple Coronary Arteries using Low Osmolar Contrast (ICD-10-PCS; 2017-08-05)
PROC: 4A023N7 Measurement of Cardiac Sampling and Pressure, Left Heart, Percutaneous Approach (ICD-10-PCS; principal; 2017-08-05 09:30)
DX: R07.89 Other chest pain (principal); E87.1 Hypo-osmolality and hyponatremia; I85.00 Esophageal varices without bleeding; D69.6 Thrombocytopenia, unspecified; E11.42 Type 2 diabetes mellitus with diabetic polyneuropathy; G70.00 Myasthenia gravis without (acute) exacerbation; I11.0 Hypertensive heart disease with heart failure; I50.9 Heart failure, unspecified; J84.10 Pulmonary fibrosis, unspecified; I25.10 Atherosclerotic heart disease of native coronary artery without angina pectoris; G40.909 Epilepsy, unspecified, not intractable, without status epilepticus; E78.5 Hyperlipidemia, unspecified; F32.9 Major depressive disorder, single episode, unspecified; G47.30 Sleep apnea, unspecified; H91.90 Unspecified hearing loss, unspecified ear; I25.2 Old myocardial infarction; I49.3 Ventricular premature depolarization; I86.4 Gastric varices; J44.9 Chronic obstructive pulmonary disease, unspecified; K21.9 Gastro-esophageal reflux disease without esophagitis; K64.1 Second degree hemorrhoids; K74.60 Unspecified cirrhosis of liver; N42.9 Disorder of prostate, unspecified; R01.1 Cardiac murmur, unspecified; R63.4 Abnormal weight loss; M54.5 Low back pain; R94.39 Abnormal result of other cardiovascular function study; G89.29 Other chronic pain; R41.3 Other amnesia; Z79.4 Long term (current) use of insulin; Z79.82 Long term (current) use of aspirin; Z79.899 Other long term (current) drug therapy; Z79.52 Long term (current) use of systemic steroids; Z87.891 Personal history of nicotine dependence; Z86.73 Personal history of transient ischemic attack (TIA), and cerebral infarction without residual deficits; Z88.1 Allergy status to other antibiotic agents; Z88.8 Allergy status to other drugs, medicaments and biological substances
CPT/HCPCS: 36415; 71046; 72100; 78452; 80053; 80061; 82550; 82553; 83036; 83690; 83735; 84484; 85025; 85049; 85379; 85610; 85730; 93005; 93017; 93458; 96361; 96365; 96375; 96376; 99291

== ENCOUNTER 2018-04-29 18:35 | Emergency (ER) | payer MEDICARE, BC ==
[2018-04-29 18:52] VITALS: BP 130/67; PULSE 74; RESP 18; TEMP 98.1
[2018-04-29] MEDS ORDERED: ORPHENADRINE 30 MG/ML 2 ML VIAL IM STA (19:14)
[2018-04-29] MEDS ORDERED: HYDROmorphone 1 MG/ML 1 ML SYRINGE IM STA (19:15)
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
--- NOTE | 2018-04-29 19:53 | XR ---
EXAMINATION TYPE: XR lumbar spine 2 or 3V DATE OF EXAM: 04/29/2018 COMPARISON: August 03, 2017 HISTORY: Pain after falling TECHNIQUE: 3 views FINDINGS: There is mild levoscoliosis. There is degenerative disc space narrowing from L2 to L5 with spurring and vacuum disc. There is no compression fracture. Posterior elements are intact. Sacroiliac joints are intact. IMPRESSION: Spondylotic changes with mild levoscoliosis. No fracture. No change.
--- NOTE | 2018-04-29 19:54 | XR ---
EXAMINATION TYPE: XR thoracic spine 2V DATE OF EXAM: 04/29/2018 COMPARISON: NONE HISTORY: Pain TECHNIQUE: 3 views FINDINGS: Thoracic vertebra have normal alignment. Posterior elements are intact. There is no paraspi nal mass. Thoracic aorta is atheromatous. There is no compression fracture. IMPRESSION: Negative thoracic spine exam. No fracture.
--- NOTE | 2018-04-29 19:55 | XR ---
EXAMINATION TYPE: XR pelvis AP view DATE OF EXAM: 04/29/2018 COMPARISON: 07/29/2013 HISTORY: Pain TECHNIQUE: Single view FINDINGS: Pelvic ring is intact. Proximal femurs and hip joints appear normal. Sacroiliac joints are intact. IMPRESSION: Negative exam. No fracture.
== END 2018-04-29 21:00 | disposition home or self-care (01) ==
LOC: EC 18:35
DX: G89.29 Other chronic pain (principal); M54.5 Low back pain; M51.36 Other intervertebral disc degeneration, lumbar region; M43.16 Spondylolisthesis, lumbar region; R01.1 Cardiac murmur, unspecified; M79.604 Pain in right leg; M79.605 Pain in left leg; J44.9 Chronic obstructive pulmonary disease, unspecified; H91.90 Unspecified hearing loss, unspecified ear; I25.2 Old myocardial infarction; E11.42 Type 2 diabetes mellitus with diabetic polyneuropathy; I11.0 Hypertensive heart disease with heart failure; I50.9 Heart failure, unspecified; N42.9 Disorder of prostate, unspecified; I25.10 Atherosclerotic heart disease of native coronary artery without angina pectoris; K21.9 Gastro-esophageal reflux disease without esophagitis; G40.909 Epilepsy, unspecified, not intractable, without status epilepticus; F32.9 Major depressive disorder, single episode, unspecified; Z87.891 Personal history of nicotine dependence; Z88.1 Allergy status to other antibiotic agents; Z88.8 Allergy status to other drugs, medicaments and biological substances; Z79.4 Long term (current) use of insulin; Z79.52 Long term (current) use of systemic steroids; Z79.82 Long term (current) use of aspirin; Z79.891 Long term (current) use of opiate analgesic; Z79.899 Other long term (current) drug therapy; Z99.81 Dependence on supplemental oxygen; Z95.9 Presence of cardiac and vascular implant and graft, unspecified; W19.XXXA Unspecified fall, initial encounter
CPT/HCPCS: 99284; 96372 ×2; 72070; 72100; 72170; J2360; J1170

== ENCOUNTER 2018-08-29 17:23 | Emergency (ER) | payer MEDICARE, BC ==
[2018-08-29] MEDS ORDERED: HYDROmorphone 2 MG/ML 1 ML SYRINGE IM STA (18:01)
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
--- NOTE | 2018-08-29 18:29 | XR ---
EXAMINATION TYPE: XR foot complete RT DATE OF EXAM: 08/29/2018 COMPARISON: NONE HISTORY: Foot pain TECHNIQUE: 3 views FINDINGS: There is a plantar calcaneal spur. There is soft tissue swelling of the forefoot. Metatarsa ls appear intact. I see no fracture. The toes appear intact. IMPRESSION: Soft tissue swelling. No fracture seen.
--- NOTE | 2018-08-29 18:31 | XR ---
EXAMINATION TYPE: XR ankle complete RT DATE OF EXAM: 08/29/2018 COMPARISON: NONE HISTORY: Pain after falling TECHNIQUE: 3 views FINDINGS: Ankle mortise is anatomic. There is mild soft tissue swelling around the ankle. There is no ndisplaced oblique fracture distal fibula. There is a plantar calcaneal spur. IMPRESSION: Acute nondisplaced fracture distal fibula.
[2018-08-29 19:47] VITALS: BP 124/52; PULSE 73; RESP 18; TEMP 98
== END 2018-08-29 19:47 | disposition home or self-care (01) ==
LOC: EC 17:23
DX: S82.831A Other fracture of upper and lower end of right fibula, initial encounter for closed fracture (principal); I25.10 Atherosclerotic heart disease of native coronary artery without angina pectoris; I11.0 Hypertensive heart disease with heart failure; I50.9 Heart failure, unspecified; K21.9 Gastro-esophageal reflux disease without esophagitis; I25.2 Old myocardial infarction; G40.909 Epilepsy, unspecified, not intractable, without status epilepticus; E11.40 Type 2 diabetes mellitus with diabetic neuropathy, unspecified; N40.0 Benign prostatic hyperplasia without lower urinary tract symptoms; G47.30 Sleep apnea, unspecified; Z99.89 Dependence on other enabling machines and devices; Z87.891 Personal history of nicotine dependence; Z86.73 Personal history of transient ischemic attack (TIA), and cerebral infarction without residual deficits; Z95.818 Presence of other cardiac implants and grafts; Z96.698 Presence of other orthopedic joint implants; Z79.4 Long term (current) use of insulin; Z79.52 Long term (current) use of systemic steroids; Z79.899 Other long term (current) drug therapy; Z88.8 Allergy status to other drugs, medicaments and biological substances; Z88.1 Allergy status to other antibiotic agents; W01.0XXA Fall on same level from slipping, tripping and stumbling without subsequent striking against object, initial encounter
CPT/HCPCS: 73610; 73630; 99283; 29515; 96372; J1170

== ENCOUNTER 2018-10-25 10:45 | Inpatient (IN) | payer MEDICARE, BC ==
[2018-10-25] MEDS ORDERED: IPRATROPIUM-ALBUTEROL 3 ML NEB INHALATION STA (11:09)
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
[2018-10-25 11:28] LABS: Anisocytosis Slight; Basophils % (A) 0 %; Eosinophils # (A) 0.1 k/uL (0-0.7); Eosinophils % (A) 1 %; HCT 32.6 % (39.0-53.0); HGB 9.9 gm/dL (13.0-17.5); Hypochromasia Moderate; Lymphocytes # (A) 0.5 k/uL (1.0-4.8); Lymphocytes % (A) 3 %; MCH 23.7 pg (25.0-35.0); MCHC 30.2 g/dL (31.0-37.0); MCV 78.3 fL (80.0-100.0); Mean Platelet Volume 7.7; Microcytosis Slight; Monocytes # (A) 0.5 k/uL (0-1.0); Monocytes % (A) 3 %; Neutrophils # (A) 13.6 k/uL (1.3-7.7); Neutrophils % (A) 92 %; Platelet Count 151 k/uL (150-450); RBC 4.17 m/uL (4.30-5.90); RDW 18.2 % (11.5-15.5); WBC 14.8 k/uL (3.8-10.6)
[2018-10-25 11:39] LABS: Albumin 3.6 g/dL (3.5-5.0); Calcium 9.5 mg/dL (8.4-10.2); Total Bilirubin 1.4 mg/dL (0.2-1.3); Total Protein 6.5 g/dL (6.3-8.2)
[2018-10-25 11:48] LABS: Magnesium 1.3 mg/dL (1.6-2.3); Potassium 5.7 mmol/L (3.5-5.1)
--- NOTE | 2018-10-25 12:00 | XR ---
EXAMINATION TYPE: XR chest 2V DATE OF EXAM: 10/25/2018 COMPARISON: Prior chest x-ray 05/13/2018 HISTORY: Difficulty breathing TECHNIQUE: Frontal and lateral views of the chest are obtained. FINDINGS: The interstitium is increased as on prior exam. No pneumothorax or pleural effusion. Cardi ac mediastinal silhouette, pulmonary vascularity and eyad are stable. There are overlying cardiac soledad ds. Retrocardiac increased density is suspected. IMPRESSION: Suspect interstitial lung disease. Difficult to exclude basilar pneumonia.
[2018-10-25 12:01] LABS: Prothrombin Time 10.4 sec (9.0-12.0)
[2018-10-25 12:11] LABS: Partial Thromboplastin Time 19.9 sec (22.0-30.0)
[2018-10-25] MEDS ORDERED: MAGNESIUM SULFATE-D5W PMX 1 GM in DEXTROSE/WATER 1 100ML.BAG IVPB ONE (12:16)
[2018-10-25] MEDS ORDERED: PNEUMONIA PROTOCOL UTILIZED 1 EACH MISC PO PRN (12:18)
[2018-10-25] MEDS ORDERED: LEVOFLOXACIN 750MG-D5W PMX 750 MG in DEXTROSE/WATER 1 150ML.BAG IVPB STA (12:18)
[2018-10-25] MEDS ORDERED: IPRATROPIUM-ALBUTEROL 3 ML NEB INHALATION PRN (12:18)
[2018-10-25] MEDS: SODIUM CHLORIDE 0.9% 1,000 ML IV SCH ×2 (12:38→21:08)
[2018-10-25] MEDS ORDERED: NITROGLYCERIN SL TABS 0.4 MG TAB SUBLINGUAL PRN (14:08)
[2018-10-25] MEDS ORDERED: diphenhydrAMINE 25 MG CAP PO PRN (14:08)
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
[2018-10-25] MEDS: IPRATROPIUM-ALBUTEROL 3 ML NEB INHALATION SCH ×2 (15:18→19:28)
[2018-10-25] MEDS: MORPHINE PAIN PUMP INTRATHECA SCH (15:28)
[2018-10-25] MEDS: PYRIDOSTIGMINE 60 MG TAB PO SCH ×2 (16:17→20:26)
[2018-10-25] MEDS: ARTIFICIAL TEARS-HYPROMELLOSE DROPS 15 ML BTL BOTH EYES SCH ×2 (16:17→21:07)
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
[2018-10-25 16:48] LABS: Glucose,Whole Blood 269 mg/dL (75-99)
[2018-10-25 17:34] LABS: Appearance,Urine Clear (Clear); Bilirubin,Urine Negative (Negative); Blood,Urine Negative (Negative); Color,Urine Yellow; Glucose,Urine (UA) Negative (Negative); Ketones,Urine Negative (Negative); Leukocyte Esterase,Urine Negative (Negative); Nitrite,Urine Negative (Negative); PH, Urine 5.5 (5.0-8.0); Protein,Urine Negative (Negative); Specific Gravity,Urine 1.015 (1.001-1.035); Urobilinogen,Urine <2.0 mg/dL (<2.0)
[2018-10-25] MEDS: INSULIN ASPART (NovoLOG) 100 UNIT/ML VIAL SQ SCH ×2 (17:36→21:06)
[2018-10-25] MEDS ORDERED: SODIUM CHLORIDE 0.9% 500 ML 250 ML IV ONE (17:40)
[2018-10-25] MEDS: predniSONE 20 MG TAB PO SCH (17:45)
[2018-10-25] MEDS ORDERED: methylPREDNISolone SOD SUCCI 125 MG/2 ML VIAL IV SCH (18:00)
[2018-10-25 19:49] LABS: Iron Saturation 0.31 (15.00-50.00)
[2018-10-25 20:30] LABS: Glucose,Whole Blood 157 mg/dL (75-99)
[2018-10-25] MEDS ORDERED: predniSONE 10 MG TAB PO SCH (21:00)
[2018-10-25] MEDS ORDERED: INSULIN DETEMIR (LEVEMIR) 100 UNIT/ML SYR SQ SCH (21:00)
[2018-10-25] MEDS ORDERED: SPIRONOLACTONE 25 MG TAB PO SCH (21:00)
[2018-10-25] MEDS: guaiFENesin 600 MG TABLET.ER PO SCH (21:05)
[2018-10-25] MEDS: FAMOTIDINE 20 MG TAB PO SCH (21:05)
[2018-10-25] MEDS: CALCIUM CARB-VIT D 500MG-200UN 1 EACH TAB PO SCH (21:05)
[2018-10-25] MEDS: lamoTRIgine 100 MG TAB PO SCH (21:07)
[2018-10-26] MEDS: PYRIDOSTIGMINE 60 MG TAB PO SCH ×6 (00:05→21:40)
[2018-10-26] MEDS ORDERED: guaiFENesin-DM 100-10MG/5ML 10 ML CUP PO PRN (05:43)
[2018-10-26 07:26] LABS: Glucose,Whole Blood 305 mg/dL (75-99)
[2018-10-26] MEDS: INSULIN ASPART (NovoLOG) 100 UNIT/ML VIAL SQ SCH ×4 (08:24→21:39)
[2018-10-26] MEDS: ENOXAPARIN 40 MG/0.4 ML SYRINGE SQ SCH (08:25)
[2018-10-26] MEDS: predniSONE 20 MG TAB PO SCH (08:27)
[2018-10-26] MEDS: PANTOPRAZOLE 40 MG TABLET PO SCH (08:27)
[2018-10-26] MEDS: FINASTERIDE 5 MG TAB PO SCH (08:27)
[2018-10-26] MEDS: CHOLECALCIFEROL 1,000 UNIT TAB PO SCH (08:27)
[2018-10-26] MEDS: ASPIRIN 325 MG TAB PO SCH (08:27)
[2018-10-26] MEDS: MAGNESIUM OXIDE 400 MG TAB PO SCH (08:27)
[2018-10-26] MEDS: SENNOSIDES 8.6 MG TAB PO SCH (08:27)
[2018-10-26] MEDS: CALCIUM CARB-VIT D 500MG-200UN 1 EACH TAB PO SCH ×2 (08:27→21:40)
[2018-10-26] MEDS: LOSARTAN 50 MG TAB PO SCH (08:27)
[2018-10-26] MEDS: FAMOTIDINE 20 MG TAB PO SCH ×2 (08:27→21:40)
[2018-10-26] MEDS: ARTIFICIAL TEARS-HYPROMELLOSE DROPS 15 ML BTL BOTH EYES SCH ×3 (08:28→21:40)
[2018-10-26] MEDS: LEVOFLOXACIN 750 MG TAB PO SCH (08:29)
[2018-10-26] MEDS: LAMIVUDINE 300 MG PO SCH (08:31)
[2018-10-26] MEDS: guaiFENesin 600 MG TABLET.ER PO SCH ×2 (08:37→21:40)
[2018-10-26] MEDS: ISOSORBIDE MONONITRATE ER 30 MG TAB.ER.24H PO SCH (08:37)
[2018-10-26] MEDS: lamoTRIgine 100 MG TAB PO SCH ×2 (08:37→21:40)
[2018-10-26] MEDS: FUROSEMIDE 40 MG TAB PO SCH (08:37)
[2018-10-26] MEDS: SODIUM CHLORIDE 0.9% 1,000 ML IV SCH ×2 (08:38→16:57)
[2018-10-26] MEDS ORDERED: NON-FORMULARY DRUG (Vitamin B Complex [Vitamin B Complex] 1 CAP) PO SCH (09:00)
[2018-10-26] MEDS ORDERED: NON-FORMULARY DRUG (Ubidecarenone [Co Q-10] 100 MG) PO SCH (09:00)
--- NOTE | 2018-10-26 09:04 | XR ---
EXAMINATION TYPE: XR chest 2V DATE OF EXAM: 10/26/2018 COMPARISON: Prior chest x-ray 10/25/2018 HISTORY: Pneumonia TECHNIQUE: Frontal and lateral views of the chest are obtained. FINDINGS: Findings are similar to prior exam. Patient is rotated. Cardiac mediastinal silhouette, pu lmonary vascularity and eyad are stable. Interstitium is increased. No focal airspace disease, pneumo thorax, or pleural effusion is evident. IMPRESSION: There is some improved aeration at the posterior costophrenic angles.
[2018-10-26] MEDS: IPRATROPIUM-ALBUTEROL 3 ML NEB INHALATION SCH ×4 (09:06→20:29)
[2018-10-26 09:49] LABS: ALT 33 U/L (21-72); AST 33 U/L (17-59); Albumin 3.7 g/dL (3.5-5.0); Alkaline Phosphatase 84 U/L (38-126); Anion Gap 11 mmol/L; Blood Urea Nitrogen 22 mg/dL (9-20); Calcium 9.4 mg/dL (8.4-10.2); Carbon Dioxide 21 mmol/L (22-30); Chloride 99 mmol/L (98-107); Glucose 280 mg/dL (74-99); Magnesium 1.5 mg/dL (1.6-2.3); Potassium 5.4 mmol/L (3.5-5.1); Sodium 131 mmol/L (137-145); Total Bilirubin 0.8 mg/dL (0.2-1.3); Total Protein 6.5 g/dL (6.3-8.2)
[2018-10-26 10:11] LABS: Anisocytosis Slight; HCT 33.3 % (39.0-53.0); HGB 9.9 gm/dL (13.0-17.5); Hypochromasia Marked; MCHC 29.7 g/dL (31.0-37.0); MCV 80.9 fL (80.0-100.0); Platelet Count 162 k/uL (150-450); RBC 4.12 m/uL (4.30-5.90); RDW 17.5 % (11.5-15.5); WBC 10.5 k/uL (3.8-10.6)
[2018-10-26 10:48] LABS: Lymphocytes # (M) 0.32 k/uL (1.0-4.8); Monocytes # (M) 0.11 k/uL (0-1.0); Neutrophils # (M) 10.08 k/uL (1.3-7.7); Neutrophils % (M) 96 %; Nucleated Red Blood Cells 0 /100 WBC (0-0); Total Cells Counted 100
[2018-10-26 11:54] LABS: Glucose,Whole Blood 170 mg/dL (75-99)
[2018-10-26] MEDS ORDERED: SODIUM POLYSTYRENE SULFONATE 15 GM/60 ML BOTTLE PO STA (11:59)
--- NOTE | 2018-10-26 12:14 | P.PN ---
Subjective Progress Note Date: 10/26/18 This is a 73-year-old male with a known past medical history of myasthenia gravis, interstitial lung disease, CVA, diabetes mellitus, liver cirrhosis, stomach ulcers, myocardial infarction, hypothyroidism, obstructive sleep apnea and memory impairment. Patient presents to the ER with complaints of shortness of breath and productive cough. He is coughing up thick yellowish to green sputum for about a week. Patient did have a low-grade temp of 99.5. Patient also reports worsening shortness of breath. EKG had shown sinus tachycardia with a heart rate of 103 chest x-ray report suspected interstitial lung disease difficult to exclude pneumonia. WBC elevated at 14.8. Hemoglobin 9.9 sodium 132 potassium is 5.7 BUN 22 creatinine 1.17 blood sugar 229 lactic acid 2.4 magnesium is 1.3 influenza screen negative. Patient started on Levaquin for possible pneumonia. Patient also complaining of diarrhea. He had 3 watery stools yesterday with lower abdominal discomfort. Check stool for C. diff. aniceto may reports having fevers chills and sweats. Also reporting nausea. Also worsening heartburn symptoms. Troponin was negative. Denies any burning with urination. Pulmonary services on consult. 10/26/2018 patient is complaining of productive cough. Sputum culture pending. Still having elevated lactic acid of 3.8. Did receive a fluid bolus yesterday for the elevated lactic acid. Chest x-ray did show some improved aeration. He currently remains on Levaquin and has been placed on prednisone by pulmonary service. Patient's white count has normalized from 14.8-10.5. Did have elevated blood sugar earlier this morning likely steroid related. Potassium is 5.4 magnesium is 1.5 and iron level is less than 2. Per nursing staff stools are formed and unable to collect stool for C. diff. patient reports that his chronic pain is better Objective - Vital Signs Vital signs: Vital Signs Temp 98 F 10/26/18 07:00 Pulse 80 10/26/18 09:23 Resp 12 10/26/18 07:00 BP 140/47 10/26/18 07:00 Pulse Ox 99 10/26/18 07:00 Intake & Output 10/25/18 10/26/18 10/26/18 18:59 06:59 18:59 Intake Total 1580 Balance 1580 Weight 111.13 kg Intake: Intake, IV Titration 600 Amount Sodium Chloride 0.9% 1, 600 000 ml @ 100 mls/hr IV . Q10H [facility] Rx#:[id number] Oral 980 Other: Voiding Method Toilet Urinal # Voids 1 3 - Exam Head normocephalic Neck supple Lungs coarse breath sounds and wheezing with crackles at bases Heart regular rate and rhythm S1-S2, no rub or gallop Abdomen is soft nontender nondistended positive bowel sounds no hepatosplenomegaly Extremities right foot in boot. Left leg chronic stasis changes. Cellulitis changes have improved Neuro alert and orientated to 3 - Labs CBC & Chem 7: 10/26/18 08:52 10/26/18 08:52 Labs: Abnormal Lab Results - Last 24 Hours (Table) 10/25/18 10/25/18 10/25/18 Range/Units 11:10 11:10 12:30 RBC (4.30-5.90) m/uL Hgb (13.0-17.5) gm/dL Hct (39.0-53.0) % MCH (25.0-35.0) pg MCHC (31.0-37.0) g/dL RDW (11.5-15.5) % Neutrophils # (Manual) (1.3-7.7) k/uL Lymphocytes # (Manual) (1.0-4.8) k/uL APTT 19.9 L (22.0-30.0) sec Sodium (137-145) mmol/L Potassium (3.5-5.1) mmol/L Carbon Dioxide (22-30) mmol/L BUN (9-20) mg/dL Glucose (74-99) mg/dL POC Glucose (mg/dL) (75-99) mg/dL Plasma Lactic Acid Pawan 2.4 H* (0.7-2.0) mmol/L Magnesium (1.6-2.3) mg/dL Iron <2 L (65-175) ug/dL Iron Saturation 0.31 L (15.00-50.00) 10/25/18 10/25/18 10/25/18 Range/Units 16:14 16:47 20:11 RBC (4.30-5.90) m/uL Hgb (13.0-17.5) gm/dL Hct (39.0-53.0) % MCH (25.0-35.0) pg MCHC (31.0-37.0) g/dL RDW (11.5-15.5) % Neutrophils # (Manual) (1.3-7.7) k/uL Lymphocytes # (Manual) (1.0-4.8) k/uL APTT (22.0-30.0) sec Sodium (137-145) mmol/L Potassium (3.5-5.1) mmol/L Carbon Dioxide (22-30) mmol/L BUN (9-20) mg/dL Glucose (74-99) mg/dL POC Glucose (mg/dL) 269 H 157 H (75-99) mg/dL Plasma Lactic Acid Pawan 2.8 H* (0.7-2.0) mmol/L Magnesium (1.6-2.3) mg/dL Iron (65-175) ug/dL Iron Saturation (15.00-50.00) 10/26/18 10/26/18 10/26/18 Range/Units 07:15 08:52 08:52 RBC 4.12 L (4.30-5.90) m/uL Hgb 9.9 L (13.0-17.5) gm/dL Hct 33.3 L (39.0-53.0) % MCH 24.0 L (25.0-35.0) pg MCHC 29.7 L (31.0-37.0) g/dL RDW 17.5 H (11.5-15.5) % Neutrophils # (Manual) 10.08 H (1.3-7.7) k/uL Lymphocytes # (Manual) 0.32 L (1.0-4.8) k/uL APTT (22.0-30.0) sec Sodium 131 L (137-145) mmol/L Potassium 5.4 H (3.5-5.1) mmol/L Carbon Dioxide 21 L (22-30) mmol/L BUN 22 H (9-20) mg/dL Glucose 280 H (74-99) mg/dL POC Glucose (mg/dL) 305 H (75-99) mg/dL Plasma Lactic Acid Pawan (0.7-2.0) mmol/L Magnesium 1.5 L (1.6-2.3) mg/dL Iron (65-175) ug/dL Iron Saturation (15.00-50.00) 10/26/18 10/26/18 Range/Units 08:52 11:52 RBC (4.30-5.90) m/uL Hgb (13.0-17.5) gm/dL Hct (39.0-53.0) % MCH (25.0-35.0) pg MCHC (31.0-37.0) g/dL RDW (11.5-15.5) % Neutrophils # (Manual) (1.3-7.7) k/uL Lymphocytes # (Manual) (1.0-4.8) k/uL APTT (22.0-30.0) sec Sodium (137-145) mmol/L Potassium (3.5-5.1) mmol/L Carbon Dioxide (22-30) mmol/L BUN (9-20) mg/dL Glucose (74-99) mg/dL POC Glucose (mg/dL) 170 H (75-99) mg/dL Plasma Lactic Acid Pawan 3.8 H* (0.7-2.0) mmol/L Magnesium (1.6-2.3) mg/dL Iron (65-175) ug/dL Iron Saturation (15.00-50.00) Microbiology - Last 24 Hours (Table) 10/25/18 11:10 Gram Stain - Preliminary Sputum Assessment and Plan Assessment: 1. Cough with shortness of breath possibly related to community-acquired pneumonia: Chest x-ray shows suspected interstitial lung disease. Difficult to exclude pneumonia. Patient did have a temp of 99.5 white count 14.8 and his been started on Levaquin in the ER. Influenza screen negative. Continue nebulizer treatments. Pulmonary service following. Chest x-ray showing improvement 2. Sepsis present on admission likely due to pneumonia patient does have elevated white count, tachycardic, lactic acid elevated at 2.4. Blood cultures pending. Lactic acid remains elevated at 3.8. Consult infectious disease. 3. Chronic hypoxemic respiratory failure home O2 dependent. With known history of interstitial lung disease and pulmonary fibrosis 4. Iron deficiency anemia: Iron levels low less than 2. Start patient on oral iron 5. Hyperkalemia : Potassium level remains elevated even though Aldactone is been discontinued. We'll give Kayexalate 15 g by mouth 1 6. Hyponatremia sodium 132. Continue with IV fluid hydration 7. Mild dehydration BUN elevated at 22 continue IV fluids 8. Hypomagnesemia magnesium 1.3 on admission. Patient receiving magnesium supplement. Repeat labs in a.m. 9. Mild Left leg cellulitis: Resolved with antibiotics 10. Old Right leg fracture. Currently in an orthopedic boot. [facility] outpatient 11. History of myasthenia gravis 12. History of interstitial lung disease 13. History of nonalcoholic liver cirrhosis And esophageal varices 14. Diabetes mellitus type 2: Patient has had a few elevated blood sugars. The highest is 305. Patient has been placed on prednisone likely contributing factor to elevated blood sugars. We will increase the Levemir to 47 units and continue sliding scale coverage. Check A1c. Last blood sugar 170 15. Chronic pain syndrome continue with morphine pump 16. History of obstructive sleep apnea 17. Hypomagnesemia: Magnesium 1.5. Give magnesium supplement 18. Diarrhea resolved. Unable to collect stool for C. diff. GI prophylaxis Pepcid and DVT prophylaxis Lovenox
[2018-10-26] MEDS: FERROUS SULFATE 325 MG TAB PO SCH ×2 (12:19→21:40)
[2018-10-26] MEDS: MORPHINE PAIN PUMP INTRATHECA SCH (12:19)
[2018-10-26] MEDS ORDERED: MAGNESIUM SULFATE-D5W PMX 1 GM in DEXTROSE/WATER 1 100ML.BAG IVPB ONE (13:00)
--- NOTE | 2018-10-26 14:05 | PN ---
PROGRESS NOTE DATE OF SERVICE: 10/26/2018 This is a 73-year-old male that we saw yesterday in consultation. DIAGNOSES: Including interstitial lung disease with purulent tracheobronchitis and possible bronchopneumonia, chronic respiratory failure secondary to interstitial lung disease, a prior history of tobacco use, CAD, chronic congestive heart failure, CVA, diabetes, hypertension, myocardial infarction, sleep apnea syndrome maintained on CPAP, chronic back pain, chronic liver disease, esophageal varices, seizure disorder, and a previous history of VRE infection. . Today, the patient was doing a bit better. Still very short of breath, lots of chest congestion and cough. He is not producing a lot of phlegm. The patient was maintained on appropriate medications. His influenza screen was negative. The patient apparently sees a tobacco sprayer in [place] at the [place]. Current vital signs are reviewed, temperature 98, heart rate 88, respiratory rate 12, blood pressure 140/47 mean 78, 2 L saturation 99%. Appears in no acute distress. HEENT: Examination is grossly unremarkable. Mucous membranes are moist. No oral lesions. NECK: Supple. Full range of motion. No adenopathy or thyromegaly. Neck veins are flat. CARDIOVASCULAR: Examination reveals a regular rhythm and rate. Heart rate 80. S1, S2 normal. No S3, S4, or murmur. Heart sounds are distant. LUNGS: Reveal some diffuse coarse rhonchi and crackles. Breath sounds are diminished. He is restricted in his breathing. No wheezes. ABDOMEN: Soft. Bowel sounds are heard. EXTREMITIES: Reveal a boot on the right foot. The left lower extremity has some edema with pitting. It is mildly erythematous. LABS: Reviewed. White count 10.5, hemoglobin 9.9, hematocrit 33.3, platelet count 262,000. Sodium 131, potassium 5.4, chloride 99, CO2 of 21, anion gap is 11, BUN and creatinine were 22 and 0.89. His calcium was 9.4. Lactic acid was 3.8, and his magnesium was 1.5. Urine was negative. Microbiology is negative. MEDICATIONS: Reviewed. The patient is on appropriate medications including cough syrup with codeine and Tessalon Perles. In addition, the patient is receiving Levaquin as an antibiotic and also receiving prednisone 40 mg a day. He is also on breathing treatments with albuterol and Atrovent q.i.d. and p.r.n. ASSESSMENT: 1. Acute hypoxemic respiratory failure secondary to underlying interstitial lung disease/pulmonary fibrosis, complicated by acute purulent tracheobronchitis and/or bronchopneumonia. 2. History of interstitial lung disease/pulmonary fibrosis with chronic hypoxemic respiratory failure. 3. Previous history of tobacco use. 4. History of coronary artery disease. 5. History of chronic congestive heart failure. 6. Cerebrovascular accident. 7. Diabetes mellitus type 2 with diabetic neuropathy. 8. Hypertension. 9. Hyperlipidemia. 10.History of myocardial infarction. 11.History of sleep apnea syndrome, maintained on CPAP. 12.Chronic back pain. 13.History of chronic liver disease with esophageal varices. 14.History of seizure disorder. 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 PLAN: The patient is on appropriate medications. He is getting breathing treatments, prednisone and also cough medications. He is also getting antibiotics. Will continue to follow. Prognosis is guarded. The patient will follow up with his private tobacco sprayer once he gets discharged from the hospital. MMODL / IJN: [id number] /
[2018-10-26] MEDS: PROMETHAZ-COD 6.25-10 MG/5 ML 5 ML CUP PO PRN (14:28)
[2018-10-26] MEDS ORDERED: SODIUM FERRIC GLUCONAT-SUCROSE 125 MG in SODIUM CHLORIDE 0.9% 100 ML IVPB ONE (16:00)
[2018-10-26 17:12] LABS: Glucose,Whole Blood 198 mg/dL (75-99)
[2018-10-26] MEDS: BENZONATATE 100 MG CAP PO SCH ×2 (17:14→21:40)
[2018-10-26 18:35] LABS: Hemoglobin A1C 7.9 % (4.0-6.0)
[2018-10-26 20:37] LABS: Glucose,Whole Blood 221 mg/dL (75-99)
[2018-10-26] MEDS: INSULIN DETEMIR (LEVEMIR) 100 UNIT/ML SYR SQ SCH (21:40)
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
[2018-10-27] MEDS: PYRIDOSTIGMINE 60 MG TAB PO SCH ×6 (00:55→20:32)
[2018-10-27] MEDS: SODIUM CHLORIDE 0.9% 1,000 ML IV SCH ×2 (04:54→13:42)
[2018-10-27] MEDS: PROMETHAZ-COD 6.25-10 MG/5 ML 5 ML CUP PO PRN ×2 (06:23→20:35)
[2018-10-27 07:29] LABS: Glucose,Whole Blood 85 mg/dL (75-99)
[2018-10-27 08:21] LABS: Anisocytosis Slight; Basophils % (A) 0 %; Eosinophils % (A) 0 %; HCT 30.8 % (39.0-53.0); HGB 9.2 gm/dL (13.0-17.5); Hypochromasia Marked; Lymphocytes # (A) 0.9 k/uL (1.0-4.8); Lymphocytes % (A) 9 %; MCH 23.7 pg (25.0-35.0); MCHC 29.8 g/dL (31.0-37.0); MCV 79.7 fL (80.0-100.0); Mean Platelet Volume 7.1; Microcytosis Slight; Monocytes # (A) 0.5 k/uL (0-1.0); Monocytes % (A) 5 %; Neutrophils # (A) 8.1 k/uL (1.3-7.7); Neutrophils % (A) 85 %; Platelet Count 178 k/uL (150-450); RBC 3.87 m/uL (4.30-5.90); RDW 18.4 % (11.5-15.5); WBC 9.6 k/uL (3.8-10.6)
[2018-10-27] MEDS: INSULIN ASPART (NovoLOG) 100 UNIT/ML VIAL SQ SCH ×4 (08:24→21:59)
[2018-10-27 08:32] LABS: ALT 31 U/L (21-72); AST 24 U/L (17-59); Albumin 3.3 g/dL (3.5-5.0); Alkaline Phosphatase 75 U/L (38-126); Anion Gap 3 mmol/L; Blood Urea Nitrogen 26 mg/dL (9-20); Calcium 10.1 mg/dL (8.4-10.2); Carbon Dioxide 29 mmol/L (22-30); Chloride 104 mmol/L (98-107); Glucose 68 mg/dL (74-99); Magnesium 1.7 mg/dL (1.6-2.3); Potassium 5.2 mmol/L (3.5-5.1); Sodium 136 mmol/L (137-145); Total Bilirubin 0.5 mg/dL (0.2-1.3)
[2018-10-27] MEDS: ASPIRIN 325 MG TAB PO SCH (08:33)
[2018-10-27] MEDS: PANTOPRAZOLE 40 MG TABLET PO SCH (08:34)
[2018-10-27] MEDS: ISOSORBIDE MONONITRATE ER 30 MG TAB.ER.24H PO SCH (08:34)
[2018-10-27] MEDS: FAMOTIDINE 20 MG TAB PO SCH ×2 (08:34→21:59)
[2018-10-27] MEDS: guaiFENesin 600 MG TABLET.ER PO SCH ×2 (08:34→21:59)
[2018-10-27] MEDS: CHOLECALCIFEROL 1,000 UNIT TAB PO SCH (08:34)
[2018-10-27] MEDS: BENZONATATE 100 MG CAP PO SCH ×3 (08:35→22:00)
[2018-10-27] MEDS: SENNOSIDES 8.6 MG TAB PO SCH (08:35)
[2018-10-27] MEDS: LOSARTAN 50 MG TAB PO SCH (08:35)
[2018-10-27] MEDS: predniSONE 20 MG TAB PO SCH (08:35)
[2018-10-27] MEDS: lamoTRIgine 100 MG TAB PO SCH ×2 (08:35→21:59)
[2018-10-27] MEDS: FUROSEMIDE 40 MG TAB PO SCH (08:36)
[2018-10-27] MEDS: FERROUS SULFATE 325 MG TAB PO SCH ×2 (08:36→21:59)
[2018-10-27] MEDS: MAGNESIUM OXIDE 400 MG TAB PO SCH (08:36)
[2018-10-27] MEDS: FINASTERIDE 5 MG TAB PO SCH (08:36)
[2018-10-27] MEDS: CALCIUM CARB-VIT D 500MG-200UN 1 EACH TAB PO SCH ×2 (08:36→21:59)
[2018-10-27] MEDS: ENOXAPARIN 40 MG/0.4 ML SYRINGE SQ SCH (08:39)
[2018-10-27] MEDS: LEVOFLOXACIN 750 MG TAB PO SCH (08:40)
[2018-10-27] MEDS: ARTIFICIAL TEARS-HYPROMELLOSE DROPS 15 ML BTL BOTH EYES SCH ×3 (08:46→22:04)
[2018-10-27] MEDS: IPRATROPIUM-ALBUTEROL 3 ML NEB INHALATION SCH ×4 (09:04→21:09)
[2018-10-27 11:43] LABS: Glucose,Whole Blood 137 mg/dL (75-99)
--- NOTE | 2018-10-27 11:53 | P.PN ---
Subjective Progress Note Date: 10/27/18 This is a 73-year-old male with a known past medical history of myasthenia gravis, interstitial lung disease, CVA, diabetes mellitus, liver cirrhosis, stomach ulcers, myocardial infarction, hypothyroidism, obstructive sleep apnea and memory impairment. Patient presents to the ER with complaints of shortness of breath and productive cough. He is coughing up thick yellowish to green sputum for about a week. Patient did have a low-grade temp of 99.5. Patient also reports worsening shortness of breath. EKG had shown sinus tachycardia with a heart rate of 103 chest x-ray report suspected interstitial lung disease difficult to exclude pneumonia. WBC elevated at 14.8. Hemoglobin 9.9 sodium 132 potassium is 5.7 BUN 22 creatinine 1.17 blood sugar 229 lactic acid 2.4 magnesium is 1.3 influenza screen negative. Patient started on Levaquin for possible pneumonia. Patient also complaining of diarrhea. He had 3 watery stools yesterday with lower abdominal discomfort. Check stool for C. diff. aniceto may reports having fevers chills and sweats. Also reporting nausea. Also worsening heartburn symptoms. Troponin was negative. Denies any burning with urination. Pulmonary services on consult. 10/26/2018 patient is complaining of productive cough. Sputum culture pending. Still having elevated lactic acid of 3.8. Did receive a fluid bolus yesterday for the elevated lactic acid. Chest x-ray did show some improved aeration. He currently remains on Levaquin and has been placed on prednisone by pulmonary service. Patient's white count has normalized from 14.8-10.5. Did have elevated blood sugar earlier this morning likely steroid related. Potassium is 5.4 magnesium is 1.5 and iron level is less than 2. Per nursing staff stools are formed and unable to collect stool for C. diff. patient reports that his chronic pain is better On 10/27/2018 patient was seen and examined on the medical floor medication and lab results were reviewed, he is alert and oriented 3 in no apparent distress he is still complaining of cough and shortness of breath otherwise he denies any complaints there is no fever or chills no headache or dizziness no chest pain no nausea or vomiting no abdominal pain no diarrhea no burning with urination no frequency or urgency and no hematuria. Objective - Vital Signs Vital signs: Vital Signs Temp 98.1 F 10/27/18 07:00 Pulse 69 10/27/18 09:15 Resp 17 10/27/18 08:40 BP 118/67 10/27/18 07:00 Pulse Ox 100 10/27/18 07:00 Intake & Output 10/26/18 10/27/18 10/27/18 18:59 06:59 18:59 Other: Voiding Method Toilet Toilet Urinal # Voids 2 2 # Bowel Movements 1 - Exam Head normocephalic and atraumatic Neck supple no JVD no goiter Lungs coarse breath sounds and wheezing with crackles at bases Heart regular rate and rhythm S1-S2, no rub or gallop Abdomen is soft nontender nondistended positive bowel sounds no hepatosplenomegaly Extremities right foot in boot. Left leg chronic stasis changes. Cellulitis changes have improved Neuro alert and orientated to 3 no gross focal deficit - Labs CBC & Chem 7: 10/27/18 07:28 10/27/18 07:28 Labs: Abnormal Lab Results - Last 24 Hours (Table) 10/26/18 10/26/18 10/26/18 Range/Units 08:52 11:52 16:50 RBC (4.30-5.90) m/uL Hgb (13.0-17.5) gm/dL Hct (39.0-53.0) % MCV (80.0-100.0) fL MCH (25.0-35.0) pg MCHC (31.0-37.0) g/dL RDW (11.5-15.5) % Neutrophils # (1.3-7.7) k/uL Lymphocytes # (1.0-4.8) k/uL Sodium (137-145) mmol/L Potassium (3.5-5.1) mmol/L BUN (9-20) mg/dL Glucose (74-99) mg/dL POC Glucose (mg/dL) 170 H 198 H (75-99) mg/dL Hemoglobin A1c 7.9 H (4.0-6.0) % Total Protein (6.3-8.2) g/dL Albumin (3.5-5.0) g/dL 10/26/18 10/27/18 10/27/18 Range/Units 20:25 07:28 07:28 RBC 3.87 L (4.30-5.90) m/uL Hgb 9.2 L (13.0-17.5) gm/dL Hct 30.8 L (39.0-53.0) % MCV 79.7 L (80.0-100.0) fL MCH 23.7 L (25.0-35.0) pg MCHC 29.8 L (31.0-37.0) g/dL RDW 18.4 H (11.5-15.5) % Neutrophils # 8.1 H (1.3-7.7) k/uL Lymphocytes # 0.9 L (1.0-4.8) k/uL Sodium 136 L (137-145) mmol/L Potassium 5.2 H (3.5-5.1) mmol/L BUN 26 H (9-20) mg/dL Glucose 68 L (74-99) mg/dL POC Glucose (mg/dL) 221 H (75-99) mg/dL Hemoglobin A1c (4.0-6.0) % Total Protein 6.0 L (6.3-8.2) g/dL Albumin 3.3 L (3.5-5.0) g/dL 10/27/18 Range/Units 11:41 RBC (4.30-5.90) m/uL Hgb (13.0-17.5) gm/dL Hct (39.0-53.0) % MCV (80.0-100.0) fL MCH (25.0-35.0) pg MCHC (31.0-37.0) g/dL RDW (11.5-15.5) % Neutrophils # (1.3-7.7) k/uL Lymphocytes # (1.0-4.8) k/uL Sodium (137-145) mmol/L Potassium (3.5-5.1) mmol/L BUN (9-20) mg/dL Glucose (74-99) mg/dL POC Glucose (mg/dL) 137 H (75-99) mg/dL Hemoglobin A1c (4.0-6.0) % Total Protein (6.3-8.2) g/dL Albumin (3.5-5.0) g/dL Microbiology - Last 24 Hours (Table) 10/25/18 11:10 Gram Stain - Final Sputum Sputum Culture - Final 10/25/18 11:10 Blood Culture - Preliminary Blood No Growth after 24 hours Assessment and Plan Plan: 1. Cough with shortness of breath possibly related to community-acquired pneumonia: Chest x-ray shows suspected interstitial lung disease. Difficult to exclude pneumonia. Patient did have a temp of 99.5 white count 14.8 and his been started on Levaquin in the ER. Influenza screen negative. Continue nebulizer treatments. Pulmonary service following. Chest x-ray showing improvement 2. Sepsis present on admission likely due to pneumonia patient does have elevated white count, tachycardic, lactic acid elevated at 2.4. Blood cultures pending. Lactic acid remains elevated at 3.8. Consult infectious disease. 3. Chronic hypoxemic respiratory failure home O2 dependent. With known history of interstitial lung disease and pulmonary fibrosis 4. Iron deficiency anemia: Iron levels low less than 2. Start patient on oral iron, also given a dose of IV iron will arrange for EGD and colonoscopy as outpatient after the end of this acute illness. 5. Hyperkalemia : Potassium level remains elevated even though Aldactone is been discontinued. We'll give Kayexalate 15 g by mouth 1 6. Hyponatremia sodium 132. Continue with IV fluid hydration 7. Mild dehydration BUN elevated at 22 continue IV fluids 8. Hypomagnesemia magnesium 1.3 on admission. Patient receiving magnesium supplement. Repeat labs in a.m. 9. Mild Left leg cellulitis: Resolved with antibiotics 10. Old Right leg fracture. Currently in an orthopedic boot. [facility] outpatient 11. History of myasthenia gravis, diagnosed here by Dr. Buckley and also seen in [place] in that regard 12. History of interstitial lung disease 13. History of nonalcoholic liver cirrhosis And esophageal varices 14. Diabetes mellitus type 2: Patient has had a few elevated blood sugars. The highest is 305. Patient has been placed on prednisone likely contributing factor to elevated blood sugars. We will increase the Levemir to 47 units and continue sliding scale coverage. Check A1c. Last blood sugar 170 15. Chronic pain syndrome continue with morphine pump 16. History of obstructive sleep apnea 17. Hypomagnesemia: Magnesium 1.5. Give magnesium supplement 18. Diarrhea resolved. Unable to collect stool for C. diff.
[2018-10-27] MEDS ORDERED: SODIUM FERRIC GLUCONAT-SUCROSE 125 MG in SODIUM CHLORIDE 0.9% 100 ML IVPB ONE (12:00)
[2018-10-27] MEDS: LAMIVUDINE 300 MG PO SCH (12:36)
[2018-10-27] MEDS: MORPHINE PAIN PUMP INTRATHECA SCH (13:42)
--- NOTE | 2018-10-27 13:55 | PN ---
PROGRESS NOTE DATE OF SERVICE: 10/27/2018 This is a very pleasant 73-year-old gentleman who was seen a couple days ago in consultation. He has a history of interstitial lung disease as well as purulent tracheobronchitis, possible bronchopneumonia, chronic respiratory failure, prior history of tobacco use, CAD, chronic congestive heart failure, CVA, diabetes, hypertension, myocardial infarction, sleep apnea syndrome, and esophageal varices among other things. The patient is doing a bit better. Much less short of breath. The patient is still complaining of cough. His cough is being controlled with a combination of codeine-containing cough syrup, corticosteroids, breathing treatments, and Tessalon Perles. Current vital signs are reviewed. His temperature is 98.1, heart rate 69, respiratory rate is 17, blood pressure is 118/67 mean 84 and room air saturation is 100%. Appears in no acute distress. HEENT: Examination is grossly unremarkable. Mucous membranes are moist. No oral lesions. NECK: Supple. Full range of motion. No adenopathy or thyromegaly. Neck veins are flat. CARDIOVASCULAR: Examination reveals regular rhythm and rate. Heart rate 69. Heart sounds are distant. S1, S2 normal. Lungs reveal coarse bibasilar crackles. He is restricted in his breathing. There is diffuse coarse bilateral rhonchi as well. ABDOMEN: Soft. Bowel sounds are heard. EXTREMITIES: Intact. There is no cyanosis or clubbing. There is a boot on the right foot. There is some edema of the left lower extremity. LABS: Reviewed. White count 9.6, hemoglobin 9.2, hematocrit 30.8, platelet count 178,000. Sodium, potassium are 136 and 5.2 respectively. Chloride is 104, CO2 is 29, and anion gap is 3. BUN and creatinine were 26 and 0.91. Albumin 3.3. Microbiology is noted. Blood and sputum were negative. No recent x-ray to report. The last chest x-ray was done on 10/26. It shows some improvement in aeration. ASSESSMENT: 1. Acute hypoxemic respiratory failure secondary to underlying interstitial lung disease/pulmonary fibrosis complicated by acute purulent tracheobronchitis and/or bronchopneumonia. 2. Chronic hypoxemic respiratory failure secondary to pulmonary fibrosis. 3. Previous history of tobacco use. 4. History of coronary artery disease. 5. History of chronic congestive heart failure. 6. Cerebrovascular accident. 7. Diabetes mellitus, type 2, with diabetic neuropathy. 8. Hypertension. 9. Hyperlipidemia. 10.History of myocardial infarction. 11.History of sleep apnea syndrome, maintained on CPAP. 12.Chronic back pain. 13.History of chronic liver disease with esophageal varices. 14.History of seizure disorder. 15.Urinary tract infection in the past, secondary to vancomycin-resistant enterococci. PLAN: The patient is doing relatively well. His major complaint is still that of cough. He is producing a small amount of phlegm. Generally speaking, he does feel better though. He remains on oxygen, bronchodilators, steroids, antibiotics and antitussives. Will continue to follow. MMODL / IJN: [id number] /
--- NOTE | 2018-10-27 15:07 | PN ---
PROGRESS NOTE DATE OF SERVICE: 10/27/2018. REASON FOR FOLLOWUP: Pneumonia. INTERVAL HISTORY: The patient is currently afebrile. The patient has been breathing more comfortably. The patient did have a significant sputum production. No hemoptysis. Denies having any chest pain. No abdominal pain and no diarrhea. EXAMINATION: Blood pressure is 118/57 with a pulse of 60, temperature 98.1. He is 100% on room air. General description is an elderly male lying in bed in no distress. Respiratory system: Unlabored breathing. Clear to auscultation anteriorly. Heart S1, S2. Regular rate and rhythm. Abdomen soft, no tenderness. LABS: Hemoglobin 9.1, white count 9.3, BUN of 26, creatinine 0.91. Sputum has been usual respiratory brian. DIAGNOSTIC IMPRESSION AND PLAN: Patient admitted to the hospital with difficulty breathing in this patient did have a bibasilar infiltrate, elevated lactic acid, more likely community-acquired pneumonia. Sputum has been negative for resistant pathogen. Patient is currently on Levaquin to continue ten day course of therapy. Continue supportive care. MMODL / IJN: [id number] /
[2018-10-27 16:44] LABS: Glucose,Whole Blood 261 mg/dL (75-99)
[2018-10-27 20:30] LABS: Glucose,Whole Blood 170 mg/dL (75-99)
[2018-10-27] MEDS: INSULIN DETEMIR (LEVEMIR) 100 UNIT/ML SYR SQ SCH (22:00)
[2018-10-28] MEDS: PYRIDOSTIGMINE 60 MG TAB PO SCH ×6 (01:11→19:24)
[2018-10-28] MEDS: SODIUM CHLORIDE 0.9% 1,000 ML IV SCH ×3 (01:12→21:34)
[2018-10-28 06:50] LABS: Glucose,Whole Blood 89 mg/dL (75-99)
[2018-10-28] MEDS: INSULIN ASPART (NovoLOG) 100 UNIT/ML VIAL SQ SCH ×5 (07:28→23:19)
[2018-10-28 07:53] LABS: Albumin 3.7 g/dL (3.5-5.0); Calcium 10.4 mg/dL (8.4-10.2); Magnesium 1.5 mg/dL (1.6-2.3); Potassium 4.9 mmol/L (3.5-5.1); Total Bilirubin 0.5 mg/dL (0.2-1.3); Total Protein 6.4 g/dL (6.3-8.2)
[2018-10-28] MEDS: ASPIRIN 325 MG TAB PO SCH (08:13)
[2018-10-28] MEDS: ENOXAPARIN 40 MG/0.4 ML SYRINGE SQ SCH (08:14)
[2018-10-28] MEDS: BENZONATATE 100 MG CAP PO SCH ×3 (08:18→23:12)
[2018-10-28] MEDS: PANTOPRAZOLE 40 MG TABLET PO SCH (08:19)
[2018-10-28] MEDS: ISOSORBIDE MONONITRATE ER 30 MG TAB.ER.24H PO SCH (08:19)
[2018-10-28] MEDS: predniSONE 20 MG TAB PO SCH (08:19)
[2018-10-28] MEDS: CALCIUM CARB-VIT D 500MG-200UN 1 EACH TAB PO SCH ×2 (08:19→23:10)
[2018-10-28] MEDS: FERROUS SULFATE 325 MG TAB PO SCH ×2 (08:19→23:10)
[2018-10-28] MEDS: FAMOTIDINE 20 MG TAB PO SCH ×2 (08:19→23:10)
[2018-10-28] MEDS: lamoTRIgine 100 MG TAB PO SCH ×2 (08:19→23:11)
[2018-10-28] MEDS: MAGNESIUM OXIDE 400 MG TAB PO SCH (08:20)
[2018-10-28] MEDS: guaiFENesin 600 MG TABLET.ER PO SCH ×2 (08:20→23:10)
[2018-10-28] MEDS: LOSARTAN 50 MG TAB PO SCH (08:20)
[2018-10-28] MEDS: FUROSEMIDE 40 MG TAB PO SCH (08:20)
[2018-10-28] MEDS: FINASTERIDE 5 MG TAB PO SCH (08:21)
[2018-10-28] MEDS: SENNOSIDES 8.6 MG TAB PO SCH (08:21)
[2018-10-28] MEDS: LAMIVUDINE 300 MG PO SCH (08:22)
[2018-10-28] MEDS: CHOLECALCIFEROL 1,000 UNIT TAB PO SCH (08:27)
[2018-10-28] MEDS: LEVOFLOXACIN 750 MG TAB PO SCH (08:28)
[2018-10-28] MEDS: ARTIFICIAL TEARS-HYPROMELLOSE DROPS 15 ML BTL BOTH EYES SCH ×3 (08:29→23:13)
[2018-10-28 08:33] LABS: Anisocytosis Slight; Basophils % (A) 0 %; Eosinophils % (A) 0 %; HCT 34.4 % (39.0-53.0); HGB 10.1 gm/dL (13.0-17.5); Hypochromasia Marked; Lymphocytes # (A) 0.9 k/uL (1.0-4.8); Lymphocytes % (A) 9 %; MCH 23.5 pg (25.0-35.0); MCHC 29.3 g/dL (31.0-37.0); MCV 80.3 fL (80.0-100.0); Mean Platelet Volume 6.9; Microcytosis Slight; Monocytes # (A) 0.5 k/uL (0-1.0); Monocytes % (A) 5 %; Neutrophils # (A) 8.9 k/uL (1.3-7.7); Neutrophils % (A) 85 %; Platelet Count 201 k/uL (150-450); RBC 4.28 m/uL (4.30-5.90); RDW 17.9 % (11.5-15.5); WBC 10.5 k/uL (3.8-10.6)
[2018-10-28] MEDS: IPRATROPIUM-ALBUTEROL 3 ML NEB INHALATION SCH ×4 (09:07→20:48)
[2018-10-28 11:21] LABS: Glucose,Whole Blood 169 mg/dL (75-99)
--- NOTE | 2018-10-28 11:53 | P.PN ---
Subjective Progress Note Date: 10/28/18 Principal diagnosis: Shortness of breath, coughing, yellow phlegm production, chills This is 73-year-old white male patient of Dr. Osorio, with past medical history of interstitial lung disease/pulmonary fibrosis, with chronic hypoxemic respiratory failure we goes to the [place] [facility] for healthcare, and patient was evaluated at the [facility] for his underlying interstitial lung disease. He never had a lung biopsy done, but based on his PFT he was told he has a severe restrictive defect, and no evidence of COPD. Medical history includes a coronary artery disease, chronic congestive heart failure, diabetes mellitus, GERD, hypertension, hyperlipidemia, previous history of myocardial infarction, seizure disorder, obstructive sleep apnea on CPAP therapy, and patient is a former smoker. Patient presented to the hospital on 10/25/2018 with complaints of increased difficulty in breathing, coughing, production of yellow phlegm, chills, but no fevers, patient had been sick for approximately 2 weeks. No chest pain or hemoptysis, he is feeling more fa tigued, and is complaining of increased swelling in his lower extremities. Chest x-ray was completed and showed aspect of interstitial lung disease increased interstitium, basilar pneumonia was difficult to exclude. Patient has been afebrile, he is on 3 L of oxygen with a pulse ox of 95%, hemodynamically patient is stable, lung sounds reveal coarse rhonchi, and wheezes. Lab work showed a white blood cell count of 14.8, hemoglobin of 9.9, sodium of 132, potassium is 5.7, chloride is 102, BUN was 22 and creatinine was 1.17, asthma lactic acid was slightly elevated at 2.4, wheezing level was 1.3, AST was 67, ALT was 39, alkaline phosphatase was 72, troponin was negative 1. Patient was started on Levaquin for antibiotic coverage, nebulized bronchodilators, he is on maintenance prednisone dose of 10 mg at bedtime. We were asked to see the patient in consultation for dyspnea likely related to underlying tracheobronchitis, and underlying pneumonia was difficult to exclude. On 10/28/2018 patient is seen in follow-up on medical surgical floor. Today he seen sitting up in the recliner, in no acute distress, he states he still coughs a lot especially when he is laying down, and he is bringing up some yellow phlegm, but overall she sounds last bronchospastic on today's exam, and he s tates he is feeling better. Remains on 2 L of oxygen. Pulse ox is 97%, he is afebrile, hemodynamically stable, lung sounds reveal some scattered expiratory wheezes, and some rhonchi, but less congested and bronchospastic, pneumatic coverage in the form of Levaquin, no fever or chills. Objective - Vital Signs Vital signs: Vital Signs Temp 98.1 F 10/28/18 07:00 Pulse 73 10/28/18 11:43 Resp 15 10/28/18 08:32 BP 110/63 10/28/18 07:00 Pulse Ox 97 10/28/18 07:00 Intake & Output 10/27/18 10/28/18 10/28/18 18:59 06:59 18:59 Intake Total 280 490 Balance 280 490 Intake: Intake, IV Titration 100 Amount Sodium Ferric Gluconat- 100 Sucrose 125 mg In Sodium Chloride 0.9% 100 ml @ 100 mls/hr IVPB ONCE ONE Rx#:[id number] Oral 180 490 Other: Voiding Method Toilet # Voids 3 3 - Exam GENERAL EXAM: Alert, pleasant, 73-year-old white male on 3 L of oxygen, comfortable in no apparent distress. HEAD: Normocephalic/atraumatic. EYES: Normal reaction of pupils, equal size. Conjunctiva pink, sclera white. NOSE: Clear with pink turbinates. THROAT: No erythema or exudates. NECK: No masses, no JVD, no thyroid enlargement, no adenopathy. CHEST: No chest wall deformity. Symmetrical expansion. LUNGS: Equal air entry with diffuse rhonchi and wheezes CVS: Regular rate and rhythm, normal S1 and S2, no gallops, no murmurs, no rubs ABDOMEN: Soft, nontender. No hepatosplenomegaly, normal bowel sounds, no guarding or rigidity. EXTREMITIES: No clubbing, no edema, no cyanosis, 2+ pulses and upper and lower extremities. MUSCULOSKELETAL: Muscle strength and tone normal. SPINE: No scoliosis or deformity SKIN: No rashes CENTRAL NERVOUS SYSTEM: Alert and oriented -3. No focal deficits, tone is normal in all 4 extremities. PSYCHIATRIC: Alert and oriented -3. Appropriate affect. Intact judgment and insight. - Labs CBC & Chem 7: 10/28/18 07:19 10/28/18 07:19 Labs: Abnormal Lab Results - Last 24 Hours (Table) 10/27/18 10/27/18 10/28/18 Range/Units 16:43 20:28 07:19 RBC 4.28 L (4.30-5.90) m/uL Hgb 10.1 L (13.0-17.5) gm/dL Hct 34.4 L (39.0-53.0) % MCH 23.5 L (25.0-35.0) pg MCHC 29.3 L (31.0-37.0) g/dL RDW 17.9 H (11.5-15.5) % Neutrophils # 8.9 H (1.3-7.7) k/uL Lymphocytes # 0.9 L (1.0-4.8) k/uL Sodium (137-145) mmol/L BUN (9-20) mg/dL POC Glucose (mg/dL) 261 H 170 H (75-99) mg/dL Calcium (8.4-10.2) mg/dL Magnesium (1.6-2.3) mg/dL 10/28/18 10/28/18 Range/Units 07:19 11:20 RBC (4.30-5.90) m/uL Hgb (13.0-17.5) gm/dL Hct (39.0-53.0) % MCH (25.0-35.0) pg MCHC (31.0-37.0) g/dL RDW (11.5-15.5) % Neutrophils # (1.3-7.7) k/uL Lymphocytes # (1.0-4.8) k/uL Sodium 134 L (137-145) mmol/L BUN 25 H (9-20) mg/dL POC Glucose (mg/dL) 169 H (75-99) mg/dL Calcium 10.4 H (8.4-10.2) mg/dL Magnesium 1.5 L (1.6-2.3) mg/dL Microbiology - Last 24 Hours (Table) 10/25/18 11:10 Blood Culture - Preliminary Blood No Growth after 48 hours 10/25/18 11:10 Gram Stain - Final Sputum Sputum Culture - Final Assessment and Plan Plan: Assessment: #1. Acute purulent tracheobronchitis, chest x-ray showed interstitial changes, basilar pneumonia is difficult to exclude, community acquired pneumonia #2. History of interstitial lung disease/pulmonary fibrosis with history of chronic hypoxemic respiratory failure #3. Former history of smoking #4. History of coronary artery disease #5. History of chronic congestive heart failure, unspecified #6. CVA/TIA #7. Diabetes mellitus type 2 with diabetic neuropathy #8. Hypertension, hyperlipidemia #9. History of myocardial infarction #10. Obstructive sleep apnea on CPAP therapy #11. Chronic back pain #12. History of chronic liver disease, and esophageal varices #13. Seizure disorder #14. 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 History of myasthenia gravis, on [place] Plan: Continue current antibiotic coverage, cultures remain negative thus far, no fever or chills, patient still bronchospastic and congested, and tinea with oral prednisone, and nebulized treatments, encouraged patient to sit up in the chair, ambulate, we'll obtain a follow-up chest x-ray for tomorrow morning, continue to follow. I performed a history & physical examination of the patient and discussed their management with my nurse practitioner, Livier Barnard. I reviewed the nurse practitioner's note and agree with the documented findings and plan of care. Lung sounds are positive for diffuse wheezes and rhonchi throughout the lung avalos. The findings and the impression was discussed with the patient. I attest to the documentation by the nurse practitioner. Time with Patient: Less than 30
[2018-10-28] MEDS: MORPHINE PAIN PUMP INTRATHECA SCH (13:17)
[2018-10-28] MEDS ORDERED: SODIUM FERRIC GLUCONAT-SUCROSE 125 MG in SODIUM CHLORIDE 0.9% 100 ML IVPB ONE (13:56)
--- NOTE | 2018-10-28 14:00 | P.PN ---
Subjective Progress Note Date: 10/28/18 This is a 73-year-old male with a known past medical history of myasthenia gravis, interstitial lung disease, CVA, diabetes mellitus, liver cirrhosis, stomach ulcers, myocardial infarction, hypothyroidism, obstructive sleep apnea and memory impairment. Patient presents to the ER with complaints of shortness of breath and productive cough. He is coughing up thick yellowish to green sputum for about a week. Patient did have a low-grade temp of 99.5. Patient also reports worsening shortness of breath. EKG had shown sinus tachycardia with a heart rate of 103 chest x-ray report suspected interstitial lung disease difficult to exclude pneumonia. WBC elevated at 14.8. Hemoglobin 9.9 sodium 132 potassium is 5.7 BUN 22 creatinine 1.17 blood sugar 229 lactic acid 2.4 magnesium is 1.3 influenza screen negative. Patient started on Levaquin for possible pneumonia. Patient also complaining of diarrhea. He had 3 watery stools yesterday with lower abdominal discomfort. Check stool for C. diff. aniceto may reports having fevers chills and sweats. Also reporting nausea. Also worsening heartburn symptoms. Troponin was negative. Denies any burning with urination. Pulmonary services on consult. 10/26/2018 patient is complaining of productive cough. Sputum culture pending. Still having elevated lactic acid of 3.8. Did receive a fluid bolus yesterday for the elevated lactic acid. Chest x-ray did show some improved aeration. He currently remains on Levaquin and has been placed on prednisone by pulmonary service. Patient's white count has normalized from 14.8-10.5. Did have elevated blood sugar earlier this morning likely steroid related. Potassium is 5.4 magnesium is 1.5 and iron level is less than 2. Per nursing staff stools are formed and unable to collect stool for C. diff. patient reports that his chronic pain is better On 10/27/2018 patient was seen and examined on the medical floor medication and lab results were reviewed, he is alert and oriented 3 in no apparent distress he is still complaining of cough and shortness of breath otherwise he denies any complaints there is no fever or chills no headache or dizziness no chest pain no nausea or vomiting no abdominal pain no diarrhea no burning with urination no frequency or urgency and no hematuria. On 10/28/2018 patient was seen and examined on the medical floor, he is alert and oriented 3 in no apparent distress he is still complaining of severe cough and shortness of breath otherwise he denies any complaints there is no fever or chills no headache or dizziness no chest pain no nausea or vomiting no abdominal pain no diarrhea no burning with urination no frequency or urgency and no hematuria. Objective - Vital Signs Vital signs: Vital Signs Temp 98.1 F 10/28/18 07:00 Pulse 75 10/28/18 11:55 Resp 15 10/28/18 08:32 BP 110/63 10/28/18 07:00 Pulse Ox 97 10/28/18 07:00 Intake & Output 10/27/18 10/28/18 10/28/18 18:59 06:59 18:59 Intake Total 280 490 Balance 280 490 Intake: Intake, IV Titration 100 Amount Sodium Ferric Gluconat- 100 Sucrose 125 mg In Sodium Chloride 0.9% 100 ml @ 100 mls/hr IVPB ONCE ONE Rx#:[id number] Oral 180 490 Other: Voiding Method Toilet # Voids 3 3 2 # Bowel Movements 2 - Exam Head normocephalic and atraumatic Neck supple no JVD no goiter Lungs coarse breath sounds and wheezing with crackles at bases Heart regular rate and rhythm S1-S2, no rub or gallop Abdomen is soft nontender nondistended positive bowel sounds no hepatosplenomegaly Extremities right foot in boot. Left leg chronic stasis changes. Cellulitis changes have improved Neuro alert and orientated to 3 no gross focal deficit - Labs CBC & Chem 7: 10/28/18 07:19 10/28/18 07:19 Labs: Abnormal Lab Results - Last 24 Hours (Table) 10/27/18 10/27/18 10/28/18 Range/Units 16:43 20:28 07:19 RBC 4.28 L (4.30-5.90) m/uL Hgb 10.1 L (13.0-17.5) gm/dL Hct 34.4 L (39.0-53.0) % MCH 23.5 L (25.0-35.0) pg MCHC 29.3 L (31.0-37.0) g/dL RDW 17.9 H (11.5-15.5) % Neutrophils # 8.9 H (1.3-7.7) k/uL Lymphocytes # 0.9 L (1.0-4.8) k/uL Sodium (137-145) mmol/L BUN (9-20) mg/dL POC Glucose (mg/dL) 261 H 170 H (75-99) mg/dL Calcium (8.4-10.2) mg/dL Magnesium (1.6-2.3) mg/dL 10/28/18 10/28/18 Range/Units 07:19 11:20 RBC (4.30-5.90) m/uL Hgb (13.0-17.5) gm/dL Hct (39.0-53.0) % MCH (25.0-35.0) pg MCHC (31.0-37.0) g/dL RDW (11.5-15.5) % Neutrophils # (1.3-7.7) k/uL Lymphocytes # (1.0-4.8) k/uL Sodium 134 L (137-145) mmol/L BUN 25 H (9-20) mg/dL POC Glucose (mg/dL) 169 H (75-99) mg/dL Calcium 10.4 H (8.4-10.2) mg/dL Magnesium 1.5 L (1.6-2.3) mg/dL Microbiology - Last 24 Hours (Table) 10/25/18 11:10 Blood Culture - Preliminary Blood No Growth after 72 hours Assessment and Plan Plan: 1. Cough with shortness of breath possibly related to community-acquired pneumonia: Chest x-ray shows suspected interstitial lung disease. Difficult to exclude pneumonia. Patient did have a temp of 99.5 white count 14.8 and his been started on Levaquin in the ER. Influenza screen negative. Continue nebulizer treatments. Pulmonary service following. Chest x-ray showing improvement 2. Sepsis present on admission likely due to pneumonia patient does have elevated white count, tachycardic, lactic acid elevated at 2.4. Blood cultures pending. Lactic acid remains elevated at 3.8. Consult infectious disease. 3. Chronic hypoxemic respiratory failure home O2 dependent. With known history of interstitial lung disease and pulmonary fibrosis 4. Iron deficiency anemia: Iron levels low less than 2. Start patient on oral iron, also given a dose of IV iron will arrange for EGD and colonoscopy as outpatient after the end of this acute illness. 5. Hyperkalemia : Potassium level remains elevated even though Aldactone is been discontinued. We'll give Kayexalate 15 g by mouth 1 6. Hyponatremia sodium 132. Continue with IV fluid hydration 7. Mild dehydration BUN elevated at 22 continue IV fluids 8. Hypomagnesemia magnesium 1.3 on admission. Patient receiving magnesium supplement. Repeat labs in a.m. 9. Mild Left leg cellulitis: Resolved with antibiotics 10. Old Right leg fracture. Currently in an orthopedic boot. [facility] outpatient 11. History of myasthenia gravis, diagnosed here by Dr. Buckley and also seen in [place] in that regard 12. History of interstitial lung disease 13. History of nonalcoholic liver cirrhosis And esophageal varices 14. Diabetes mellitus type 2: Patient has had a few elevated blood sugars. The highest is 305. Patient has been placed on prednisone likely contributing factor to elevated blood sugars. We will increase the Levemir to 47 units and continue sliding scale coverage. Check A1c. Last blood sugar 170 15. Chronic pain syndrome continue with morphine pump 16. History of obstructive sleep apnea 17. Hypomagnesemia: Magnesium 1.5. Give magnesium supplement 18. Diarrhea resolved. Unable to collect stool for C. diff.
[2018-10-28] MEDS: PROMETHAZ-COD 6.25-10 MG/5 ML 5 ML CUP PO PRN ×2 (15:34→23:12)
[2018-10-28 16:48] LABS: Glucose,Whole Blood 304 mg/dL (75-99)
[2018-10-28] MEDS: BENZOCAINE/MENTHOL LOZENG 1 EACH LOZENGE MUCOUS MEM PRN (19:27)
[2018-10-28 20:35] LABS: Glucose,Whole Blood 315 mg/dL (75-99)
[2018-10-28 22:17] LABS: Anisocytosis Slight; Basophils % (A) 0 %; Eosinophils % (A) 0 %; HCT 30.3 % (39.0-53.0); HGB 8.9 gm/dL (13.0-17.5); Hypochromasia Marked; Lymphocytes # (A) 0.3 k/uL (1.0-4.8); Lymphocytes % (A) 4 %; MCH 24.5 pg (25.0-35.0); MCHC 29.5 g/dL (31.0-37.0); Mean Platelet Volume 7.4; Monocytes # (A) 0.4 k/uL (0-1.0); Monocytes % (A) 5 %; Neutrophils # (A) 8.2 k/uL (1.3-7.7); Neutrophils % (A) 90 %; Platelet Count 160 k/uL (150-450); RBC 3.65 m/uL (4.30-5.90); RDW 17.8 % (11.5-15.5); WBC 9.1 k/uL (3.8-10.6)
--- NOTE | 2018-10-28 22:34 | PN ---
PROGRESS NOTE DATE OF SERVICE: 10/28/2018. REASON FOR FOLLOWUP: Pneumonia. INTERVAL HISTORY: The patient is currently afebrile. The patient has been breathing comfortably. The patient did have occasional coughing spells. However has been mostly dry. No chest pain. No nausea, vomiting. No abdominal pain or any diarrhea. PHYSICAL EXAMINATION: Blood pressure is 110/62 with a pulse of 95, temperature 98.4. He is 99% on 2 L nasal cannula. General description is an elderly female lying in a chair in no distress. Respiratory system: Unlabored breathing with decreased breath sounds in the base, with no wheeze. Heart S1, S2. Regular rate and rhythm. ABDOMEN: Soft, no tenderness. LABS: Hemoglobin is 10.8, white count 10.5 BUN of 25, creatinine 0.97. Electrolytes have been normal. DIAGNOSTIC IMPRESSION AND PLAN: Patient admitted to the hospital with pneumonia likely community acquired. Sputum has been negative for resistant pathogen. The patient did have KEFLEX ALLERGY, overall doing well on Levaquin. He will continue to finish his course of therapy. Continue supportive care. MMODL / IJN: [id number] /
[2018-10-28] MEDS: INSULIN DETEMIR (LEVEMIR) 100 UNIT/ML SYR SQ SCH (23:11)
[2018-10-28] MEDS: BENZOCAINE 20% HEMORRHOIDAL OINT 28GM RECTAL PRN (23:23)
[2018-10-29] MEDS ORDERED: BENZOCAINE 20% HEMORRHOIDAL OINT 28GM RECTAL SCH
[2018-10-29] MEDS: PYRIDOSTIGMINE 60 MG TAB PO SCH ×6 (01:19→19:30)
[2018-10-29] MEDS: BENZOCAINE/MENTHOL LOZENG 1 EACH LOZENGE MUCOUS MEM PRN ×2 (01:22→19:30)
[2018-10-29 03:41] LABS: Anisocytosis Slight; Basophils % (A) 0 %; Eosinophils % (A) 0 %; HCT 29.7 % (39.0-53.0); HGB 8.7 gm/dL (13.0-17.5); Hypochromasia Marked; Lymphocytes # (A) 0.7 k/uL (1.0-4.8); Lymphocytes % (A) 8 %; MCH 23.5 pg (25.0-35.0); MCHC 29.4 g/dL (31.0-37.0); MCV 79.9 fL (80.0-100.0); Mean Platelet Volume 7.3; Microcytosis Slight; Monocytes # (A) 0.5 k/uL (0-1.0); Monocytes % (A) 5 %; Neutrophils % (A) 86 %; Platelet Count 172 k/uL (150-450); RBC 3.72 m/uL (4.30-5.90); RDW 18.2 % (11.5-15.5); WBC 9.3 k/uL (3.8-10.6)
[2018-10-29 03:50] LABS: ALT 34 U/L (21-72); AST 23 U/L (17-59); Alkaline Phosphatase 90 U/L (38-126); Anion Gap 6 mmol/L; Blood Urea Nitrogen 23 mg/dL (9-20); Calcium 9.9 mg/dL (8.4-10.2); Carbon Dioxide 25 mmol/L (22-30); Chloride 102 mmol/L (98-107); Glucose 221 mg/dL (74-99); Potassium 4.6 mmol/L (3.5-5.1); Sodium 133 mmol/L (137-145); Total Bilirubin 0.3 mg/dL (0.2-1.3); Total Protein 5.5 g/dL (6.3-8.2)
[2018-10-29] MEDS: SODIUM CHLORIDE 0.9% 1,000 ML IV SCH ×2 (05:37→17:16)
[2018-10-29 07:48] LABS: Glucose,Whole Blood 188 mg/dL (75-99)
[2018-10-29 07:54] LABS: Anisocytosis Slight; Basophils % (A) 0 %; Eosinophils % (A) 0 %; HCT 32.2 % (39.0-53.0); HGB 9.5 gm/dL (13.0-17.5); Hypochromasia Marked; Lymphocytes % (A) 10 %; MCH 24.2 pg (25.0-35.0); MCHC 29.6 g/dL (31.0-37.0); MCV 81.7 fL (80.0-100.0); Mean Platelet Volume 7.4; Monocytes # (A) 0.4 k/uL (0-1.0); Monocytes % (A) 4 %; Neutrophils # (A) 8.7 k/uL (1.3-7.7); Neutrophils % (A) 85 %; Platelet Count 205 k/uL (150-450); RBC 3.95 m/uL (4.30-5.90); WBC 10.3 k/uL (3.8-10.6)
[2018-10-29] MEDS: IPRATROPIUM-ALBUTEROL 3 ML NEB INHALATION SCH ×4 (08:43→20:26)
--- NOTE | 2018-10-29 08:45 | XR ---
EXAMINATION TYPE: XR chest 2V DATE OF EXAM: 10/29/2018 COMPARISON: 10/26/2018 TECHNIQUE: PA and lateral views submitted. HISTORY: Possible pneumonia FINDINGS: A coarsened interstitium is stable. There is left lower lobe infiltrate. Heart is enlarged. Arthropat hy of the shoulders. No pneumothorax. Atherosclerotic change aorta. IMPRESSION: 1. Left lower lobe infiltrate with findings suggestive of chronic interstitial lung disease. Superimp osed pneumonitis not excluded correlate clinically.
[2018-10-29] MEDS: FAMOTIDINE 20 MG TAB PO SCH ×2 (09:00→20:27)
[2018-10-29] MEDS: FINASTERIDE 5 MG TAB PO SCH (09:00)
[2018-10-29] MEDS: FERROUS SULFATE 325 MG TAB PO SCH ×2 (09:00→20:26)
[2018-10-29] MEDS: CALCIUM CARB-VIT D 500MG-200UN 1 EACH TAB PO SCH ×2 (09:01→20:27)
[2018-10-29] MEDS: guaiFENesin 600 MG TABLET.ER PO SCH ×2 (09:01→20:27)
[2018-10-29] MEDS: SENNOSIDES 8.6 MG TAB PO SCH (09:01)
[2018-10-29] MEDS: lamoTRIgine 100 MG TAB PO SCH ×2 (09:01→20:26)
[2018-10-29] MEDS: PANTOPRAZOLE 40 MG TABLET PO SCH (09:01)
[2018-10-29] MEDS: CHOLECALCIFEROL 1,000 UNIT TAB PO SCH (09:01)
[2018-10-29] MEDS: LOSARTAN 50 MG TAB PO SCH (09:02)
[2018-10-29] MEDS: BENZONATATE 100 MG CAP PO SCH ×3 (09:02→20:26)
[2018-10-29] MEDS: FUROSEMIDE 40 MG TAB PO SCH (09:02)
[2018-10-29] MEDS: predniSONE 20 MG TAB PO SCH (09:02)
[2018-10-29] MEDS: BENZOCAINE 20% HEMORRHOIDAL OINT 28GM RECTAL PRN (09:02)
[2018-10-29] MEDS: ISOSORBIDE MONONITRATE ER 30 MG TAB.ER.24H PO SCH (09:02)
[2018-10-29] MEDS: INSULIN ASPART (NovoLOG) 100 UNIT/ML VIAL SQ SCH ×4 (09:03→21:35)
[2018-10-29] MEDS: LAMIVUDINE 300 MG PO SCH (09:04)
[2018-10-29] MEDS: ASPIRIN 325 MG TAB PO SCH (09:04)
[2018-10-29] MEDS: ENOXAPARIN 40 MG/0.4 ML SYRINGE SQ SCH (09:05)
[2018-10-29] MEDS: ARTIFICIAL TEARS-HYPROMELLOSE DROPS 15 ML BTL BOTH EYES SCH ×3 (09:10→20:26)
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
[2018-10-29] MEDS: PROMETHAZ-COD 6.25-10 MG/5 ML 5 ML CUP PO PRN ×2 (11:11→19:30)
[2018-10-29] MEDS ORDERED: HYDROCORTISONE SUPPOSITORY 25 MG SUPP RECTAL SCH ×2 (11:15→21:00)
--- NOTE | 2018-10-29 11:41 | P.PN ---
Subjective Progress Note Date: 10/29/18 This is a 73-year-old male with a known past medical history of myasthenia gravis, interstitial lung disease, CVA, diabetes mellitus, liver cirrhosis, stomach ulcers, myocardial infarction, hypothyroidism, obstructive sleep apnea and memory impairment. Patient presents to the ER with complaints of shortness of breath and productive cough. He is coughing up thick yellowish to green sputum for about a week. Patient did have a low-grade temp of 99.5. Patient also reports worsening shortness of breath. EKG had shown sinus tachycardia with a heart rate of 103 chest x-ray report suspected interstitial lung disease difficult to exclude pneumonia. WBC elevated at 14.8. Hemoglobin 9.9 sodium 132 potassium is 5.7 BUN 22 creatinine 1.17 blood sugar 229 lactic acid 2.4 magnesium is 1.3 influenza screen negative. Patient started on Levaquin for possible pneumonia. Patient also complaining of diarrhea. He had 3 watery stools yesterday with lower abdominal discomfort. Check stool for C. diff. aniceto may reports having fevers chills and sweats. Also reporting nausea. Also worsening heartburn symptoms. Troponin was negative. Denies any burning with urination. Pulmonary services on consult. 10/26/2018 patient is complaining of productive cough. Sputum culture pending. Still having elevated lactic acid of 3.8. Did receive a fluid bolus yesterday for the elevated lactic acid. Chest x-ray did show some improved aeration. He currently remains on Levaquin and has been placed on prednisone by pulmonary service. Patient's white count has normalized from 14.8-10.5. Did have elevated blood sugar earlier this morning likely steroid related. Potassium is 5.4 magnesium is 1.5 and iron level is less than 2. Per nursing staff stools are formed and unable to collect stool for C. diff. patient reports that his chronic pain is better On 10/27/2018 patient was seen and examined on the medical floor medication and lab results were reviewed, he is alert and oriented 3 in no apparent distress he is still complaining of cough and shortness of breath otherwise he denies any complaints there is no fever or chills no headache or dizziness no chest pain no nausea or vomiting no abdominal pain no diarrhea no burning with urination no frequency or urgency and no hematuria. On 10/28/2018 patient was seen and examined on the medical floor, he is alert and oriented 3 in no apparent distress he is still complaining of severe cough and shortness of breath otherwise he denies any complaints there is no fever or chills no headache or dizziness no chest pain no nausea or vomiting no abdominal pain no diarrhea no burning with urination no frequency or urgency and no hematuria. 10/29/2018 patient reporting today still having a cough. He's had some improvement in his breathing. Also complaining of rectal bleeding. Was seen by surgical service. They've added Anusol for hemorrhoids. The patient is refusing any endoscopy. Hemoglobin is stable at 9.5. He did receive a dose of IV iron during this admission. Patient denies any chest pain. Denies any nausea or vomiting. Denies any burning with urination. Objective - Vital Signs Vital signs: Vital Signs Temp 97.7 F 10/29/18 07:00 Pulse 84 10/29/18 08:00 Resp 16 10/29/18 08:00 BP 125/69 10/29/18 07:00 Pulse Ox 99 10/29/18 07:00 Intake & Output 10/28/18 10/29/18 10/29/18 18:59 06:59 18:59 Intake Total 930 960 Balance 930 960 Intake: Oral 930 960 Other: Voiding Method Toilet Toilet # Voids 2 4 # Bowel Movements 2 2 - Exam Head normocephalic Neck supple Lungs coarse breath sounds and wheezing with crackles at bases Heart regular rate and rhythm S1-S2, no rub or gallop Abdomen is soft nontender nondistended positive bowel sounds no hepatosplenomegaly Extremities right foot in boot. Left leg chronic stasis changes. Cellulitis changes have improved Neuro alert and orientated to 3 - Labs CBC & Chem 7: 10/29/18 07:38 10/29/18 03:19 Labs: Abnormal Lab Results - Last 24 Hours (Table) 10/28/18 10/28/18 10/28/18 Range/Units 16:47 20:29 22:04 RBC 3.65 L (4.30-5.90) m/uL Hgb 8.9 L (13.0-17.5) gm/dL Hct 30.3 L (39.0-53.0) % MCV (80.0-100.0) fL MCH 24.5 L (25.0-35.0) pg MCHC 29.5 L (31.0-37.0) g/dL RDW 17.8 H (11.5-15.5) % Neutrophils # 8.2 H (1.3-7.7) k/uL Lymphocytes # 0.3 L (1.0-4.8) k/uL Sodium (137-145) mmol/L BUN (9-20) mg/dL Glucose (74-99) mg/dL POC Glucose (mg/dL) 304 H 315 H (75-99) mg/dL Total Protein (6.3-8.2) g/dL Albumin (3.5-5.0) g/dL 10/29/18 10/29/18 10/29/18 Range/Units 03:19 03:19 07:31 RBC 3.72 L (4.30-5.90) m/uL Hgb 8.7 L (13.0-17.5) gm/dL Hct 29.7 L (39.0-53.0) % MCV 79.9 L (80.0-100.0) fL MCH 23.5 L (25.0-35.0) pg MCHC 29.4 L (31.0-37.0) g/dL RDW 18.2 H (11.5-15.5) % Neutrophils # 8.0 H (1.3-7.7) k/uL Lymphocytes # 0.7 L (1.0-4.8) k/uL Sodium 133 L (137-145) mmol/L BUN 23 H (9-20) mg/dL Glucose 221 H (74-99) mg/dL POC Glucose (mg/dL) 188 H (75-99) mg/dL Total Protein 5.5 L (6.3-8.2) g/dL Albumin 3.0 L (3.5-5.0) g/dL 10/29/18 Range/Units 07:38 RBC 3.95 L (4.30-5.90) m/uL Hgb 9.5 L (13.0-17.5) gm/dL Hct 32.2 L (39.0-53.0) % MCV (80.0-100.0) fL MCH 24.2 L (25.0-35.0) pg MCHC 29.6 L (31.0-37.0) g/dL RDW 18.0 H (11.5-15.5) % Neutrophils # 8.7 H (1.3-7.7) k/uL Lymphocytes # (1.0-4.8) k/uL Sodium (137-145) mmol/L BUN (9-20) mg/dL Glucose (74-99) mg/dL POC Glucose (mg/dL) (75-99) mg/dL Total Protein (6.3-8.2) g/dL Albumin (3.5-5.0) g/dL Microbiology - Last 24 Hours (Table) 10/25/18 11:10 Blood Culture - Preliminary Blood No Growth after 72 hours Assessment and Plan Assessment: 1. Cough with shortness of breath possibly related to community-acquired pneumonia: Chest x-ray shows suspected interstitial lung disease. Difficult to exclude pneumonia. Patient did have a temp of 99.5 white count 14.8 and his been started on Levaquin in the ER. Influenza screen negative. Continue nebulizer treatments. Pulmonary service following. Chest x-ray from this morning shows left lower lobe infiltrate with interstitial lung disease. Sputum culture normal respiratory brian 2. Sepsis present on admission likely due to pneumonia patient does have elevated white count, tachycardic, lactic acid elevated at 2.4. Lactic acid remains elevated at 3.8. . Blood culture negative 3. Chronic hypoxemic respiratory failure home O2 dependent. With known history of interstitial lung disease and pulmonary fibrosis 4. Iron deficiency anemia: Iron levels low less than 2. Patient did receive a dose of IV iron. Continue oral iron 5. Hyperkalemia : Aldactone is been discontinued during this admission. Potassium level improved 6. Hyponatremia sodium 132. Continue with IV fluid hydration 7. Mild dehydration BUN elevated at 22 continue IV fluids 8. Hypomagnesemia magnesium 1.3 on admission. Patient receiving magnesium supplement. Repeat labs in a.m. 9. Mild Left leg cellulitis: Resolved with antibiotics 10. Old Right leg fracture. Currently in an orthopedic boot. [facility] 11. History of myasthenia gravis 12. History of interstitial lung disease 13. History of nonalcoholic liver cirrhosis And esophageal varices 14. Diabetes mellitus type 2: Patient has had a few elevated blood sugars. The highest is 305. Patient has been placed on prednisone likely contributing factor to elevated blood sugars. We will increase the Levemir to 47 units and continue sliding scale coverage. A1c 7.9 last blood sugar 188 15. Chronic pain syndrome continue with morphine pump 16. History of obstructive sleep apnea 17. Hypomagnesemia: Magnesium 1.5. Will increase oral magnesium to twice a day. Recheck magnesium level in a.m. 18. Diarrhea resolved. Unable to collect stool for C. diff. 19. Rectal bleeding likely related to hemorrhoids. Has been evaluated by surgical service they have added Anusol suppositories. Hemoglobin remains stable. Patient has refused any endoscopy at this time Consult PT OT GI prophylaxis Pepcid and DVT prophylaxis Lovenox I performed an examination of the patient and discussed their management with the physician Air Director. I have reviewed the Physician Air Director's notes and agree with the documented findings and plan of care
[2018-10-29 11:56] LABS: Glucose,Whole Blood 78 mg/dL (75-99)
[2018-10-29] MEDS: LEVOFLOXACIN 750 MG TAB PO SCH (12:47)
[2018-10-29] MEDS: MORPHINE PAIN PUMP INTRATHECA SCH (12:49)
--- NOTE | 2018-10-29 15:41 | P.PN ---
Subjective Progress Note Date: 10/29/18 Principal diagnosis: Shortness of breath, coughing, yellow phlegm production, chills This is 73-year-old white male patient of Dr. Osorio, with past medical history of interstitial lung disease/pulmonary fibrosis, with chronic hypoxemic respiratory failure we goes to the [facility], and patient was evaluated at the [facility] for his underlying interstitial lung disease. He never had a lung biopsy done, but based on his PFT he was told he has a severe restrictive defect, and no evidence of COPD. Medical history includes a coronary artery disease, chronic congestive heart failure, diabetes mellitus, GERD, hypertension, hyperlipidemia, previous history of myocardial infarction, seizure disorder, obstructive sleep apnea on CPAP therapy, and patient is a former smoker. Patient presented to the hospital on 10/25/2018 with complaints of increased difficulty in breathing, coughing, production of yellow phlegm, chills, but no fevers, patient had been sick for approximately 2 weeks. No chest pain or hemoptysis, he is feeling more fa tigued, and is complaining of increased swelling in his lower extremities. Chest x-ray was completed and showed aspect of interstitial lung disease increased interstitium, basilar pneumonia was difficult to exclude. Patient has been afebrile, he is on 3 L of oxygen with a pulse ox of 95%, hemodynamically patient is stable, lung sounds reveal coarse rhonchi, and wheezes. Lab work showed a white blood cell count of 14.8, hemoglobin of 9.9, sodium of 132, potassium is 5.7, chloride is 102, BUN was 22 and creatinine was 1.17, asthma lactic acid was slightly elevated at 2.4, wheezing level was 1.3, AST was 67, ALT was 39, alkaline phosphatase was 72, troponin was negative 1. Patient was started on Levaquin for antibiotic coverage, nebulized bronchodilators, he is on maintenance prednisone dose of 10 mg at bedtime. We were asked to see the patient in consultation for dyspnea likely related to underlying tracheobronchitis, and underlying pneumonia was difficult to exclude. On 10/28/2018 patient is seen in follow-up on medical surgical floor. Today he seen sitting up in the recliner, in no acute distress, he states he still coughs a lot especially when he is laying down, and he is bringing up some yellow phlegm, but overall she sounds last bronchospastic on today's exam, and he s tates he is feeling better. Remains on 2 L of oxygen. Pulse ox is 97%, he is afebrile, hemodynamically stable, lung sounds reveal some scattered expiratory wheezes, and some rhonchi, but less congested and bronchospastic, pneumatic coverage in the form of Levaquin, no fever or chills. On 10/29/2018 patient is seen in follow-up on medical surgical floor. She is sitting up in the recliner, in no acute distress, lung sounds are positive for coarse rales at the bases, with some scattered wheezes, oral last bronchospastic, he is on 2 L of oxygen his pulse ox is 99%, still has some coughing spells, not bringing up any phlegm. Repeat chest x-ray showed left lower lobe infiltrate. Patient is on Levaquin, blood and sputum culture showed no growth. Today's blood work showed a white blood cell count of 10.3, hemoglobin of 9.5, BMP was unremarkable. He developed some dark red blood per rectum, apparently has a history of hemorrhoids with previous colonoscopy, surgery is following, hemoglobin is stable, hemodynamically patient is stable, he declined any endoscopic studies, will continue with current medical treatment, continue with IV steroids antibiotics and breathing treatments. Over all patient is stable, he is improving from pulmonary perspective Objective - Vital Signs Vital signs: Vital Signs Temp 97.7 F 10/29/18 07:00 Pulse 112 H 10/29/18 12:13 Resp 16 10/29/18 08:00 BP 125/69 10/29/18 07:00 Pulse Ox 99 10/29/18 07:00 Intake & Output 10/28/18 10/29/18 10/29/18 18:59 06:59 18:59 Intake Total 930 960 Balance 930 960 Intake: Oral 930 960 Other: Voiding Method Toilet Toilet # Voids 2 4 # Bowel Movements 2 2 - Exam GENERAL EXAM: Alert, pleasant, 73-year-old white male on 2 L of oxygen, comfortable in no apparent distress. HEAD: Normocephalic/atraumatic. EYES: Normal reaction of pupils, equal size. Conjunctiva pink, sclera white. NOSE: Clear with pink turbinates. THROAT: No erythema or exudates. NECK: No masses, no JVD, no thyroid enlargement, no adenopathy. CHEST: No chest wall deformity. Symmetrical expansion. LUNGS: Equal air entry with diffuse rhonchi and wheezes CVS: Regular rate and rhythm, normal S1 and S2, no gallops, no murmurs, no rubs ABDOMEN: Soft, nontender. No hepatosplenomegaly, normal bowel sounds, no guarding or rigidity. EXTREMITIES: No clubbing, no edema, no cyanosis, 2+ pulses and upper and lower extremities. MUSCULOSKELETAL: Muscle strength and tone normal. SPINE: No scoliosis or deformity SKIN: No rashes CENTRAL NERVOUS SYSTEM: Alert and oriented -3. No focal deficits, tone is normal in all 4 extremities. PSYCHIATRIC: Alert and oriented -3. Appropriate affect. Intact judgment and insight. - Labs CBC & Chem 7: 10/29/18 07:38 10/29/18 03:19 Labs: Abnormal Lab Results - Last 24 Hours (Table) 10/28/18 10/28/18 10/28/18 Range/Units 16:47 20:29 22:04 RBC 3.65 L (4.30-5.90) m/uL Hgb 8.9 L (13.0-17.5) gm/dL Hct 30.3 L (39.0-53.0) % MCV (80.0-100.0) fL MCH 24.5 L (25.0-35.0) pg MCHC 29.5 L (31.0-37.0) g/dL RDW 17.8 H (11.5-15.5) % Neutrophils # 8.2 H (1.3-7.7) k/uL Lymphocytes # 0.3 L (1.0-4.8) k/uL Sodium (137-145) mmol/L BUN (9-20) mg/dL Glucose (74-99) mg/dL POC Glucose (mg/dL) 304 H 315 H (75-99) mg/dL Total Protein (6.3-8.2) g/dL Albumin (3.5-5.0) g/dL 10/29/18 10/29/18 10/29/18 Range/Units 03:19 03:19 07:31 RBC 3.72 L (4.30-5.90) m/uL Hgb 8.7 L (13.0-17.5) gm/dL Hct 29.7 L (39.0-53.0) % MCV 79.9 L (80.0-100.0) fL MCH 23.5 L (25.0-35.0) pg MCHC 29.4 L (31.0-37.0) g/dL RDW 18.2 H (11.5-15.5) % Neutrophils # 8.0 H (1.3-7.7) k/uL Lymphocytes # 0.7 L (1.0-4.8) k/uL Sodium 133 L (137-145) mmol/L BUN 23 H (9-20) mg/dL Glucose 221 H (74-99) mg/dL POC Glucose (mg/dL) 188 H (75-99) mg/dL Total Protein 5.5 L (6.3-8.2) g/dL Albumin 3.0 L (3.5-5.0) g/dL 10/29/18 Range/Units 07:38 RBC 3.95 L (4.30-5.90) m/uL Hgb 9.5 L (13.0-17.5) gm/dL Hct 32.2 L (39.0-53.0) % MCV (80.0-100.0) fL MCH 24.2 L (25.0-35.0) pg MCHC 29.6 L (31.0-37.0) g/dL RDW 18.0 H (11.5-15.5) % Neutrophils # 8.7 H (1.3-7.7) k/uL Lymphocytes # (1.0-4.8) k/uL Sodium (137-145) mmol/L BUN (9-20) mg/dL Glucose (74-99) mg/dL POC Glucose (mg/dL) (75-99) mg/dL Total Protein (6.3-8.2) g/dL Albumin (3.5-5.0) g/dL Microbiology - Last 24 Hours (Table) 10/25/18 11:10 Blood Culture - Preliminary Blood No Growth after 96 hours Assessment and Plan Plan: Assessment: #1. Acute purulent tracheobronchitis, chest x-ray showed interstitial changes, basilar pneumonia is difficult to exclude, community acquired pneumonia #2. History of interstitial lung disease/pulmonary fibrosis with history of chronic hypoxemic respiratory failure #3. Former history of smoking #4. History of coronary artery disease #5. History of chronic congestive heart failure, unspecified #6. CVA/TIA #7. Diabetes mellitus type 2 with diabetic neuropathy #8. Hypertension, hyperlipidemia #9. History of myocardial infarction #10. Obstructive sleep apnea on CPAP therapy #11. Chronic back pain #12. History of chronic liver disease, and esophageal varices #13. Seizure disorder #14. 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 History of myasthenia gravis, on M[place]on Plan: Continue current medical treatment, current antibiotics, culture data has been reviewed and remains negative, patient is less bronchospastic, he is ambulating to the bathroom, tolerating activity fairly well, hemodynamically stable, did have a couple episodes of dark red bloods per rectum, possibly related to hemorrhoids. Follow-up chest x-ray has been reviewed with Dr. Khan shows a left lower lobe infiltrate background of chronic interstitial lung disease. Clinically patient is improving I performed a history & physical examination of the patient and discussed their management with my nurse practitioner, Livier Barnard. I reviewed the nurse practitioner's note and agree with the documented findings and plan of care. Lung sounds are positive for diffuse wheezes and rhonchi throughout the lung avalos. The findings and the impression was discussed with the patient. I attest to the documentation by the nurse practitioner. Time with Patient: Less than 30
[2018-10-29 16:49] LABS: Glucose,Whole Blood 267 mg/dL (75-99)
[2018-10-29 17:48] LABS: Anisocytosis Slight; HCT 30.7 % (39.0-53.0); HGB 9.1 gm/dL (13.0-17.5); Hypochromasia Marked; MCH 24.5 pg (25.0-35.0); MCHC 29.8 g/dL (31.0-37.0); MCV 82.3 fL (80.0-100.0); Mean Platelet Volume 6.7; Platelet Count 204 k/uL (150-450); RBC 3.73 m/uL (4.30-5.90); RDW 19.1 % (11.5-15.5); WBC 13.1 k/uL (3.8-10.6)
[2018-10-29] MEDS: MAGNESIUM OXIDE 400 MG TAB PO SCH (20:27)
[2018-10-29 21:04] LABS: Glucose,Whole Blood 349 mg/dL (75-99)
[2018-10-29] MEDS: INSULIN DETEMIR (LEVEMIR) 100 UNIT/ML SYR SQ SCH (21:36)
--- NOTE | 2018-10-29 23:49 | PN ---
PROGRESS NOTE DATE OF SERVICE: 10/29/2018. REASON FOR FOLLOWUP: Pneumonia. INTERVAL HISTORY: The patient is currently afebrile, has been breathing comfortably. Denies any chest pain. He did have some cough not bringing up sputum, no abdominal pain. Did have some bright red blood with bowel movement. EXAMINATION: Blood pressure is 108/53 with a pulse of 109. Temperature 97.9. He is 94% on 2 L nasal cannula. General description is an elderly male lying in bed in no distress. Respiratory system: Unlabored breathing. Decreased breath sounds in the bases. No wheeze. Heart S1, S2. Regular rate and rhythm. Abdomen soft, no tenderness. LABS: Hemoglobin is 9.1, white count of 13.1. DIAGNOSTIC IMPRESSION AND PLAN: Patient with difficulty breathing, cough, concern for pneumonia, possibly community acquired. Sputum has negative for resistant pathogen. Currently covered with Levaquin to finish his course of therapy. Continue supportive care. MMODL / IJN: [id number] /
[2018-10-30] MEDS: PYRIDOSTIGMINE 60 MG TAB PO SCH ×6 (00:21→21:37)
[2018-10-30] MEDS: SODIUM CHLORIDE 0.9% 1,000 ML IV SCH ×2 (03:06→13:08)
[2018-10-30 07:22] LABS: Glucose,Whole Blood 141 mg/dL (75-99)
[2018-10-30 07:58] LABS: Anisocytosis Slight; Basophils % (A) 0 %; Eosinophils % (A) 0 %; HCT 28.6 % (39.0-53.0); HGB 8.5 gm/dL (13.0-17.5); Hypochromasia Marked; Lymphocytes % (A) 8 %; MCH 24.2 pg (25.0-35.0); MCHC 29.7 g/dL (31.0-37.0); MCV 81.4 fL (80.0-100.0); Mean Platelet Volume 7.2; Microcytosis Slight; Monocytes # (A) 0.5 k/uL (0-1.0); Monocytes % (A) 4 %; Neutrophils # (A) 11.3 k/uL (1.3-7.7); Neutrophils % (A) 87 %; Platelet Count 202 k/uL (150-450); RBC 3.52 m/uL (4.30-5.90); WBC 13.1 k/uL (3.8-10.6)
[2018-10-30 08:19] LABS: Magnesium 1.4 mg/dL (1.6-2.3); Potassium 4.5 mmol/L (3.5-5.1); Total Bilirubin 0.4 mg/dL (0.2-1.3); Total Protein 5.4 g/dL (6.3-8.2)
[2018-10-30] MEDS: PANTOPRAZOLE 40 MG TABLET PO SCH (08:45)
[2018-10-30] MEDS: MAGNESIUM OXIDE 400 MG TAB PO SCH ×2 (08:45→21:38)
[2018-10-30] MEDS: predniSONE 20 MG TAB PO SCH (08:45)
[2018-10-30] MEDS: lamoTRIgine 100 MG TAB PO SCH ×2 (08:45→21:39)
[2018-10-30] MEDS: SENNOSIDES 8.6 MG TAB PO SCH (08:46)
[2018-10-30] MEDS: BENZONATATE 100 MG CAP PO SCH ×3 (08:46→21:38)
[2018-10-30] MEDS: INSULIN ASPART (NovoLOG) 100 UNIT/ML VIAL SQ SCH ×6 (08:46→21:40)
[2018-10-30] MEDS: FAMOTIDINE 20 MG TAB PO SCH ×2 (08:46→21:39)
[2018-10-30] MEDS: guaiFENesin 600 MG TABLET.ER PO SCH ×2 (08:46→21:38)
[2018-10-30] MEDS: FERROUS SULFATE 325 MG TAB PO SCH ×2 (08:46→21:39)
[2018-10-30] MEDS: FINASTERIDE 5 MG TAB PO SCH (08:46)
[2018-10-30] MEDS: LOSARTAN 50 MG TAB PO SCH (08:46)
[2018-10-30] MEDS: CALCIUM CARB-VIT D 500MG-200UN 1 EACH TAB PO SCH ×2 (08:46→21:47)
[2018-10-30] MEDS: ISOSORBIDE MONONITRATE ER 30 MG TAB.ER.24H PO SCH (08:46)
[2018-10-30] MEDS: CHOLECALCIFEROL 1,000 UNIT TAB PO SCH (08:46)
[2018-10-30] MEDS: FUROSEMIDE 40 MG TAB PO SCH (08:46)
[2018-10-30] MEDS: ASPIRIN 325 MG TAB PO SCH (08:50)
[2018-10-30] MEDS: ENOXAPARIN 40 MG/0.4 ML SYRINGE SQ SCH (08:50)
[2018-10-30] MEDS: LAMIVUDINE 300 MG PO SCH (08:53)
[2018-10-30] MEDS: ARTIFICIAL TEARS-HYPROMELLOSE DROPS 15 ML BTL BOTH EYES SCH ×3 (08:54→21:41)
[2018-10-30] MEDS: IPRATROPIUM-ALBUTEROL 3 ML NEB INHALATION SCH ×4 (10:49→21:26)
[2018-10-30 11:49] LABS: Glucose,Whole Blood 195 mg/dL (75-99)
--- NOTE | 2018-10-30 12:04 | P.PN ---
<Ethel Chou - Last Filed: 10/30/18 12:02> Subjective Progress Note Date: 10/30/18 CHIEF COMPLAINT: Rectal bleeding HISTORY OF PRESENT ILLNESS: Patient examined at the bedside. He reports an episode of bright red blood this morning in the toilet a few hours prior to my examination. He also reports recent bowel movement with no blood. Denies abdominal pain. Hemoglobin yesterday 9.5. Repeat 9.1 and 8.5. Patient refusing aspirin and lovenox. Patient unable to take Anusol due to allergy. He continues to use topical cream. PHYSICAL EXAM: VITAL SIGNS: Reviewed. GENERAL: Well-developed in no acute distress. HEENT: No sclera icterus. Extraocular movements grossly intact. Moist buccal mucosa. Head is atraumatic, normocephalic. ABDOMEN: Soft. Nondistended. Nontender. NEUROLOGIC: Alert and oriented. Cranial nerves II through XII grossly intact. ASSESSMENT: 1. Rectal bleeding, suspect secondary to hemorrhoids PLAN: 1. Patient states he is not interested in having any endoscopic studies at this time 2. Continue current diet 3. Monitor hemoglobin 4. Patient unable to take Anusol. Continue topical cream Nurse practitioner note has been reviewed by physician. Signing provider agrees with the documented findings, assessment, and plan of care. Objective - Vital Signs Vital signs: Vital Signs Temp 97.5 F L 10/30/18 08:05 Pulse 96 10/30/18 11:02 Resp 16 10/30/18 08:05 BP 103/61 10/30/18 08:05 Pulse Ox 97 10/30/18 08:05 Intake & Output 10/29/18 10/30/18 10/30/18 18:59 06:59 18:59 Intake Total 700 Balance 700 Weight 112.9 kg Intake: Oral 700 Other: Voiding Method Toilet Toilet # Voids 3 2 1 # Bowel Movements 2 1 - Labs CBC & Chem 7: 10/30/18 05:10 10/30/18 07:27 Labs: Abnormal Lab Results - Last 24 Hours (Table) 10/29/18 10/29/18 10/29/18 Range/Units 16:47 17:26 21:03 WBC 13.1 H (3.8-10.6) k/uL RBC 3.73 L (4.30-5.90) m/uL Hgb 9.1 L (13.0-17.5) gm/dL Hct 30.7 L (39.0-53.0) % MCH 24.5 L (25.0-35.0) pg MCHC 29.8 L (31.0-37.0) g/dL RDW 19.1 H (11.5-15.5) % Neutrophils # (1.3-7.7) k/uL Sodium (137-145) mmol/L BUN (9-20) mg/dL Glucose (74-99) mg/dL POC Glucose (mg/dL) 267 H 349 H (75-99) mg/dL Magnesium (1.6-2.3) mg/dL Total Protein (6.3-8.2) g/dL Albumin (3.5-5.0) g/dL 10/30/18 10/30/18 10/30/18 Range/Units 05:10 07:14 07:27 WBC 13.1 H (3.8-10.6) k/uL RBC 3.52 L (4.30-5.90) m/uL Hgb 8.5 L (13.0-17.5) gm/dL Hct 28.6 L (39.0-53.0) % MCH 24.2 L (25.0-35.0) pg MCHC 29.7 L (31.0-37.0) g/dL RDW 19.0 H (11.5-15.5) % Neutrophils # 11.3 H (1.3-7.7) k/uL Sodium 132 L (137-145) mmol/L BUN 30 H (9-20) mg/dL Glucose 103 H (74-99) mg/dL POC Glucose (mg/dL) 141 H (75-99) mg/dL Magnesium 1.4 L (1.6-2.3) mg/dL Total Protein 5.4 L (6.3-8.2) g/dL Albumin 3.0 L (3.5-5.0) g/dL 10/30/18 Range/Units 11:47 WBC (3.8-10.6) k/uL RBC (4.30-5.90) m/uL Hgb (13.0-17.5) gm/dL Hct (39.0-53.0) % MCH (25.0-35.0) pg MCHC (31.0-37.0) g/dL RDW (11.5-15.5) % Neutrophils # (1.3-7.7) k/uL Sodium (137-145) mmol/L BUN (9-20) mg/dL Glucose (74-99) mg/dL POC Glucose (mg/dL) 195 H (75-99) mg/dL Magnesium (1.6-2.3) mg/dL Total Protein (6.3-8.2) g/dL Albumin (3.5-5.0) g/dL Microbiology - Last 24 Hours (Table) 10/25/18 11:10 Blood Culture - Preliminary Blood No Growth after 96 hours <Natanael Garrido - Last Filed: 10/30/18 16:53> Subjective Patient had bleeding once again today. He states that usually when he is coughing while having a bowel movement. I stressed to the patient that he spend as little time on the toilet as possible. Continue topical cream. No surgical intervention planned at this time. We'll sign off. Follow-up as outpatient. Objective - Vital Signs Vital signs: Vital Signs Temp 98.4 F 10/30/18 15:12 Pulse 84 10/30/18 15:49 Resp 18 10/30/18 15:12 BP 100/53 10/30/18 15:12 Pulse Ox 98 10/30/18 15:12 Intake & Output 10/29/18 10/30/18 10/30/18 18:59 06:59 18:59 Intake Total 700 240 Balance 700 240 Weight 112.9 kg 112.9 kg Intake: Oral 700 240 Other: Voiding Method Toilet Toilet # Voids 3 2 3 # Bowel Movements 2 3 - Labs CBC & Chem 7: 10/30/18 05:10 10/30/18 07:27 Labs: Abnormal Lab Results - Last 24 Hours (Table) 10/29/18 10/29/18 10/30/18 Range/Units 17:26 21:03 05:10 WBC 13.1 H 13.1 H (3.8-10.6) k/uL RBC 3.73 L 3.52 L (4.30-5.90) m/uL Hgb 9.1 L 8.5 L (13.0-17.5) gm/dL Hct 30.7 L 28.6 L (39.0-53.0) % MCH 24.5 L 24.2 L (25.0-35.0) pg MCHC 29.8 L 29.7 L (31.0-37.0) g/dL RDW 19.1 H 19.0 H (11.5-15.5) % Neutrophils # 11.3 H (1.3-7.7) k/uL Sodium (137-145) mmol/L BUN (9-20) mg/dL Glucose (74-99) mg/dL POC Glucose (mg/dL) 349 H (75-99) mg/dL Magnesium (1.6-2.3) mg/dL Total Protein (6.3-8.2) g/dL Albumin (3.5-5.0) g/dL 10/30/18 10/30/18 10/30/18 Range/Units 07:14 07:27 11:47 WBC (3.8-10.6) k/uL RBC (4.30-5.90) m/uL Hgb (13.0-17.5) gm/dL Hct (39.0-53.0) % MCH (25.0-35.0) pg MCHC (31.0-37.0) g/dL RDW (11.5-15.5) % Neutrophils # (1.3-7.7) k/uL Sodium 132 L (137-145) mmol/L BUN 30 H (9-20) mg/dL Glucose 103 H (74-99) mg/dL POC Glucose (mg/dL) 141 H 195 H (75-99) mg/dL Magnesium 1.4 L (1.6-2.3) mg/dL Total Protein 5.4 L (6.3-8.2) g/dL Albumin 3.0 L (3.5-5.0) g/dL Microbiology - Last 24 Hours (Table) 10/25/18 11:10 Blood Culture - Preliminary Blood No Growth after 120 hours
--- NOTE | 2018-10-30 12:40 | P.PN ---
Subjective Progress Note Date: 10/30/18 This is a 73-year-old male with a known past medical history of myasthenia gravis, interstitial lung disease, CVA, diabetes mellitus, liver cirrhosis, stomach ulcers, myocardial infarction, hypothyroidism, obstructive sleep apnea and memory impairment. Patient presents to the ER with complaints of shortness of breath and productive cough. He is coughing up thick yellowish to green sputum for about a week. Patient did have a low-grade temp of 99.5. Patient also reports worsening shortness of breath. EKG had shown sinus tachycardia with a heart rate of 103 chest x-ray report suspected interstitial lung disease difficult to exclude pneumonia. WBC elevated at 14.8. Hemoglobin 9.9 sodium 132 potassium is 5.7 BUN 22 creatinine 1.17 blood sugar 229 lactic acid 2.4 magnesium is 1.3 influenza screen negative. Patient started on Levaquin for possible pneumonia. Patient also complaining of diarrhea. He had 3 watery stools yesterday with lower abdominal discomfort. Check stool for C. diff. aniceto may reports having fevers chills and sweats. Also reporting nausea. Also worsening heartburn symptoms. Troponin was negative. Denies any burning with urination. Pulmonary services on consult. 10/26/2018 patient is complaining of productive cough. Sputum culture pending. Still having elevated lactic acid of 3.8. Did receive a fluid bolus yesterday for the elevated lactic acid. Chest x-ray did show some improved aeration. He currently remains on Levaquin and has been placed on prednisone by pulmonary service. Patient's white count has normalized from 14.8-10.5. Did have elevated blood sugar earlier this morning likely steroid related. Potassium is 5.4 magnesium is 1.5 and iron level is less than 2. Per nursing staff stools are formed and unable to collect stool for C. diff. patient reports that his chronic pain is better On 10/27/2018 patient was seen and examined on the medical floor medication and lab results were reviewed, he is alert and oriented 3 in no apparent distress he is still complaining of cough and shortness of breath otherwise he denies any complaints there is no fever or chills no headache or dizziness no chest pain no nausea or vomiting no abdominal pain no diarrhea no burning with urination no frequency or urgency and no hematuria. On 10/28/2018 patient was seen and examined on the medical floor, he is alert and oriented 3 in no apparent distress he is still complaining of severe cough and shortness of breath otherwise he denies any complaints there is no fever or chills no headache or dizziness no chest pain no nausea or vomiting no abdominal pain no diarrhea no burning with urination no frequency or urgency and no hematuria. 10/29/2018 patient reporting today still having a cough. He's had some improvement in his breathing. Also complaining of rectal bleeding. Was seen by surgical service. They've added Anusol for hemorrhoids. The patient is refusing any endoscopy. Hemoglobin is stable at 9.5. He did receive a dose of IV iron during this admission. Patient denies any chest pain. Denies any nausea or vomiting. Denies any burning with urination. 10/30/2018 patient still reporting cough and not feeling well. Patient still coughing up yellowish to clear sputum. Shortness of breath with activity. Still requiring oxygen. At home he reports that he is just the oxygen as needed. Denies any chest pain. Denies any nausea or vomiting. Did report a bowel movement with some blood earlier today. I cannot tolerate the Anusol suppositories. He is currently using hemorrhoid cream. Patient also requesting that his vitamin B12 and vitamin C be restarted Objective - Vital Signs Vital signs: Vital Signs Temp 97.5 F L 10/30/18 08:05 Pulse 96 10/30/18 11:02 Resp 16 10/30/18 08:05 BP 103/61 10/30/18 08:05 Pulse Ox 97 10/30/18 08:05 Intake & Output 10/29/18 10/30/18 10/30/18 18:59 06:59 18:59 Intake Total 700 Balance 700 Weight 112.9 kg Intake: Oral 700 Other: Voiding Method Toilet Toilet # Voids 3 2 1 # Bowel Movements 2 1 - Exam Head normocephalic Neck supple Lungs coarse breath sounds Heart regular rate and rhythm S1-S2, no rub or gallop Abdomen is soft nontender nondistended positive bowel sounds no hepatosple nomegaly Extremities right foot in boot. Left leg chronic stasis changes. Cellulitis changes have improved Neuro alert and orientated to 3 - Labs CBC & Chem 7: 10/30/18 05:10 10/30/18 07:27 Labs: Abnormal Lab Results - Last 24 Hours (Table) 10/29/18 10/29/18 10/29/18 Range/Units 16:47 17:26 21:03 WBC 13.1 H (3.8-10.6) k/uL RBC 3.73 L (4.30-5.90) m/uL Hgb 9.1 L (13.0-17.5) gm/dL Hct 30.7 L (39.0-53.0) % MCH 24.5 L (25.0-35.0) pg MCHC 29.8 L (31.0-37.0) g/dL RDW 19.1 H (11.5-15.5) % Neutrophils # (1.3-7.7) k/uL Sodium (137-145) mmol/L BUN (9-20) mg/dL Glucose (74-99) mg/dL POC Glucose (mg/dL) 267 H 349 H (75-99) mg/dL Magnesium (1.6-2.3) mg/dL Total Protein (6.3-8.2) g/dL Albumin (3.5-5.0) g/dL 10/30/18 10/30/18 10/30/18 Range/Units 05:10 07:14 07:27 WBC 13.1 H (3.8-10.6) k/uL RBC 3.52 L (4.30-5.90) m/uL Hgb 8.5 L (13.0-17.5) gm/dL Hct 28.6 L (39.0-53.0) % MCH 24.2 L (25.0-35.0) pg MCHC 29.7 L (31.0-37.0) g/dL RDW 19.0 H (11.5-15.5) % Neutrophils # 11.3 H (1.3-7.7) k/uL Sodium 132 L (137-145) mmol/L BUN 30 H (9-20) mg/dL Glucose 103 H (74-99) mg/dL POC Glucose (mg/dL) 141 H (75-99) mg/dL Magnesium 1.4 L (1.6-2.3) mg/dL Total Protein 5.4 L (6.3-8.2) g/dL Albumin 3.0 L (3.5-5.0) g/dL 10/30/18 Range/Units 11:47 WBC (3.8-10.6) k/uL RBC (4.30-5.90) m/uL Hgb (13.0-17.5) gm/dL Hct (39.0-53.0) % MCH (25.0-35.0) pg MCHC (31.0-37.0) g/dL RDW (11.5-15.5) % Neutrophils # (1.3-7.7) k/uL Sodium (137-145) mmol/L BUN (9-20) mg/dL Glucose (74-99) mg/dL POC Glucose (mg/dL) 195 H (75-99) mg/dL Magnesium (1.6-2.3) mg/dL Total Protein (6.3-8.2) g/dL Albumin (3.5-5.0) g/dL Microbiology - Last 24 Hours (Table) 10/25/18 11:10 Blood Culture - Preliminary Blood No Growth after 96 hours Assessment and Plan Assessment: 1. Cough with shortness of breath possibly related to community-acquired pneumonia: Chest x-ray shows suspected interstitial lung disease. Difficult to exclude pneumonia. Patient did have a temp of 99.5 white count 14.8 and his been started on Levaquin in the ER. Influenza screen negative. Continue nebulizer treatments. Pulmonary service following. Chest x-ray from this morning shows left lower lobe infiltrate with interstitial lung disease. Sputum culture normal respiratory brian 2. Sepsis present on admission likely due to pneumonia patient does have elevated white count, tachycardic, lactic acid elevated at 2.4. Lactic acid remains elevated at 3.8. . Blood culture negative 3. Chronic hypoxemic respiratory failure home O2 dependent. With known history of interstitial lung disease and pulmonary fibrosis 4. Iron deficiency anemia: Iron levels low less than 2. Patient did receive a dose of IV iron. Continue oral iron 5. Hyperkalemia : Aldactone is been discontinued during this admission. Potassium level improved 6. Hyponatremia sodium 132. Continue with IV fluid hydration 7. Mild dehydration BUN elevated at 22. Improved 9. Mild Left leg cellulitis: Resolved with antibiotics 10. Old Right leg fracture. Currently in an orthopedic boot. [facility] 11. History of myasthenia gravis 12. History of interstitial lung disease 13. History of nonalcoholic liver cirrhosis And esophageal varices 14. Diabetes mellitus type 2: Patient has had a few elevated blood sugars. The highest is 305. Patient has been placed on prednisone likely contributing factor to elevated blood sugars. We will increase the Levemir to 47 units and continue sliding scale coverage. A1c 7.9 last blood sugar 188 15. Chronic pain syndrome continue with morphine pump 16. History of obstructive sleep apnea 17. Hypomagnesemia: Magnesium 1.5. Will increase oral magnesium to twice a day. Recheck magnesium level in a.m. 18. Diarrhea resolved. Unable to collect stool for C. diff. 19. Rectal bleeding likely related to hemorrhoids. Patient seen by surgical service. Has ALLERGY to Anusol suppositories. Continue with topical hemorrhoid cream. Patient has refused any endoscopy at this time 20. Resume patient's vitamin B12 and vitamin C supplements Consult PT OT GI prophylaxis Pepcid and DVT prophylaxis Lovenox I performed an examination of the patient and discussed their management with [facility] Plater Helper. I have reviewed the Physician Plater Helper's notes and agree with the documented findings and plan of care
[2018-10-30] MEDS: PROMETHAZ-COD 6.25-10 MG/5 ML 5 ML CUP PO PRN ×2 (13:07→21:51)
[2018-10-30] MEDS: LEVOFLOXACIN 750 MG TAB PO SCH (13:12)
[2018-10-30] MEDS: MORPHINE PAIN PUMP INTRATHECA SCH (13:28)
--- NOTE | 2018-10-30 13:55 | P.PN ---
Subjective Progress Note Date: 10/30/18 Principal diagnosis: Shortness of breath, coughing, yellow phlegm production, chills This is 73-year-old white male patient of Dr. Osorio, with past medical history of interstitial lung disease/pulmonary fibrosis, with chronic hypoxemic respiratory failure we goes to the [place] system for healthcare, and patient was evaluated at the [facility] for his underlying interstitial lung disease. He never had a lung biopsy done, but based on his PFT he was told he has a severe restrictive defect, and no evidence of COPD. Medical history includes a coronary artery disease, chronic congestive heart failure, diabetes mellitus, GERD, hypertension, hyperlipidemia, previous history of myocardial infarction, seizure disorder, obstructive sleep apnea on CPAP therapy, and patient is a former smoker. Patient presented to the hospital on 10/25/2018 with complaints of increased difficulty in breathing, coughing, production of yellow phlegm, chills, but no fevers, patient had been sick for approximately 2 weeks. No chest pain or hemoptysis, he is feeling more fa tigued, and is complaining of increased swelling in his lower extremities. Chest x-ray was completed and showed aspect of interstitial lung disease increased interstitium, basilar pneumonia was difficult to exclude. Patient has been afebrile, he is on 3 L of oxygen with a pulse ox of 95%, hemodynamically patient is stable, lung sounds reveal coarse rhonchi, and wheezes. Lab work showed a white blood cell count of 14.8, hemoglobin of 9.9, sodium of 132, potassium is 5.7, chloride is 102, BUN was 22 and creatinine was 1.17, asthma lactic acid was slightly elevated at 2.4, wheezing level was 1.3, AST was 67, ALT was 39, alkaline phosphatase was 72, troponin was negative 1. Patient was started on Levaquin for antibiotic coverage, nebulized bronchodilators, he is on maintenance prednisone dose of 10 mg at bedtime. We were asked to see the patient in consultation for dyspnea likely related to underlying tracheobronchitis, and underlying pneumonia was difficult to exclude. On 10/28/2018 patient is seen in follow-up on medical surgical floor. Today he seen sitting up in the recliner, in no acute distress, he states he still coughs a lot especially when he is laying down, and he is bringing up some yellow phlegm, but overall she sounds last bronchospastic on today's exam, and he s tates he is feeling better. Remains on 2 L of oxygen. Pulse ox is 97%, he is afebrile, hemodynamically stable, lung sounds reveal some scattered expiratory wheezes, and some rhonchi, but less congested and bronchospastic, pneumatic coverage in the form of Levaquin, no fever or chills. On 10/29/2018 patient is seen in follow-up on medical surgical floor. She is sitting up in the recliner, in no acute distress, lung sounds are positive for coarse rales at the bases, with some scattered wheezes, oral last bronchospastic, he is on 2 L of oxygen his pulse ox is 99%, still has some coughing spells, not bringing up any phlegm. Repeat chest x-ray showed left lower lobe infiltrate. Patient is on Levaquin, blood and sputum culture showed no growth. Today's blood work showed a white blood cell count of 10.3, hemoglobin of 9.5, BMP was unremarkable. He developed some dark red blood per rectum, apparently has a history of hemorrhoids with previous colonoscopy, surgery is following, hemoglobin is stable, hemodynamically patient is stable, he declined any endoscopic studies, will continue with current medical treatment, continue with IV steroids antibiotics and breathing treatments. Over all patient is stable, he is improving from pulmonary perspective On 10/30/2018 patient is seen in follow-up on medical surgical floor. He is up in the chair, in no acute distress, his breathing continues to improve, patient is coughing less. Less dyspneic. Vital signs are stable, patient's hemoglobin is trending down, down to 8.5 from 9.1 on yesterday's labs. No fever or chills. Lung sounds reveal some scattered expiratory wheezes, some coarse crackles at the bases. Patient did have an episode of bright red blood this morning in the toilet surgeries following. Objective - Vital Signs Vital signs: Vital Signs Temp 97.5 F L 10/30/18 08:05 Pulse 96 10/30/18 11:02 Resp 16 10/30/18 08:05 BP 103/61 10/30/18 08:05 Pulse Ox 97 10/30/18 08:05 Intake & Output 10/29/18 10/30/18 10/30/18 18:59 06:59 18:59 Intake Total 700 Balance 700 Weight 112.9 kg Intake: Oral 700 Other: Voiding Method Toilet Toilet # Voids 3 2 1 # Bowel Movements 2 1 - Exam GENERAL EXAM: Alert, pleasant, 73-year-old white male on 2 L of oxygen, comfortable in no apparent distress. HEAD: Normocephalic/atraumatic. EYES: Normal reaction of pupils, equal size. Conjunctiva pink, sclera white. NOSE: Clear with pink turbinates. THROAT: No erythema or exudates. NECK: No masses, no JVD, no thyroid enlargement, no adenopathy. CHEST: No chest wall deformity. Symmetrical expansion. LUNGS: Equal air entry with diffuse rhonchi and wheezes CVS: Regular rate and rhythm, normal S1 and S2, no gallops, no murmurs, no rubs ABDOMEN: Soft, nontender. No hepatosplenomegaly, normal bowel sounds, no guarding or rigidity. EXTREMITIES: No clubbing, no edema, no cyanosis, 2+ pulses and upper and lower extremities. MUSCULOSKELETAL: Muscle strength and tone normal. SPINE: No scoliosis or deformity SKIN: No rashes CENTRAL NERVOUS SYSTEM: Alert and oriented -3. No focal deficits, tone is normal in all 4 extremities. PSYCHIATRIC: Alert and oriented -3. Appropriate affect. Intact judgment and insight. - Labs CBC & Chem 7: 10/30/18 05:10 10/30/18 07:27 Labs: Abnormal Lab Results - Last 24 Hours (Table) 10/29/18 10/29/18 10/29/18 Range/Units 16:47 17:26 21:03 WBC 13.1 H (3.8-10.6) k/uL RBC 3.73 L (4.30-5.90) m/uL Hgb 9.1 L (13.0-17.5) gm/dL Hct 30.7 L (39.0-53.0) % MCH 24.5 L (25.0-35.0) pg MCHC 29.8 L (31.0-37.0) g/dL RDW 19.1 H (11.5-15.5) % Neutrophils # (1.3-7.7) k/uL Sodium (137-145) mmol/L BUN (9-20) mg/dL Glucose (74-99) mg/dL POC Glucose (mg/dL) 267 H 349 H (75-99) mg/dL Magnesium (1.6-2.3) mg/dL Total Protein (6.3-8.2) g/dL Albumin (3.5-5.0) g/dL 10/30/18 10/30/18 10/30/18 Range/Units 05:10 07:14 07:27 WBC 13.1 H (3.8-10.6) k/uL RBC 3.52 L (4.30-5.90) m/uL Hgb 8.5 L (13.0-17.5) gm/dL Hct 28.6 L (39.0-53.0) % MCH 24.2 L (25.0-35.0) pg MCHC 29.7 L (31.0-37.0) g/dL RDW 19.0 H (11.5-15.5) % Neutrophils # 11.3 H (1.3-7.7) k/uL Sodium 132 L (137-145) mmol/L BUN 30 H (9-20) mg/dL Glucose 103 H (74-99) mg/dL POC Glucose (mg/dL) 141 H (75-99) mg/dL Magnesium 1.4 L (1.6-2.3) mg/dL Total Protein 5.4 L (6.3-8.2) g/dL Albumin 3.0 L (3.5-5.0) g/dL 10/30/18 Range/Units 11:47 WBC (3.8-10.6) k/uL RBC (4.30-5.90) m/uL Hgb (13.0-17.5) gm/dL Hct (39.0-53.0) % MCH (25.0-35.0) pg MCHC (31.0-37.0) g/dL RDW (11.5-15.5) % Neutrophils # (1.3-7.7) k/uL Sodium (137-145) mmol/L BUN (9-20) mg/dL Glucose (74-99) mg/dL POC Glucose (mg/dL) 195 H (75-99) mg/dL Magnesium (1.6-2.3) mg/dL Total Protein (6.3-8.2) g/dL Albumin (3.5-5.0) g/dL Microbiology - Last 24 Hours (Table) 10/25/18 11:10 Blood Culture - Preliminary Blood No Growth after 120 hours Assessment and Plan Plan: Assessment: #1. Acute purulent tracheobronchitis, chest x-ray showed interstitial changes, basilar pneumonia is difficult to exclude, community acquired pneumonia #2. History of interstitial lung disease/pulmonary fibrosis with history of chronic hypoxemic respiratory failure #3. Former history of smoking #4. History of coronary artery disease #5. History of chronic congestive heart failure, unspecified #6. CVA/TIA #7. Diabetes mellitus type 2 with diabetic neuropathy #8. Hypertension, hyperlipidemia #9. History of myocardial infarction #10. Obstructive sleep apnea on CPAP therapy #11. Chronic back pain #12. History of chronic liver disease, and esophageal varices #13. Seizure disorder #14. 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 History of myasthenia gravis, on Mestinon Plan: Continue with breathing treatments, oral prednisone, and antibiotics. From pulmonary perspective patient is improving, less coughing, less wheezing, less dyspnea. Vital signs are stable. Sputum culture showed normal respiratory brian. Patient is having some rectal bleeding, surgery is following. I performed a history & physical examination of the patient and discussed their management with my nurse practitioner, Livier Barnard. I reviewed the nurse practitioner's note and agree with the documented findings and plan of care. Lung sounds are positive for diffuse wheezes and rhonchi throughout the lung avalos. The findings and the impression was discussed with the patient. I attest to the documentation by the nurse practitioner. Time with Patient: Less than 30
[2018-10-30] MEDS ORDERED: MAGNESIUM SULFATE-D5W PMX 1 GM in DEXTROSE/WATER 1 100ML.BAG IVPB ONE (15:00)
[2018-10-30 15:48] VITALS: BMI 33.7
[2018-10-30 17:09] LABS: Glucose,Whole Blood 289 mg/dL (75-99)
[2018-10-30 20:43] LABS: Glucose,Whole Blood 268 mg/dL (75-99)
[2018-10-30] MEDS: INSULIN DETEMIR (LEVEMIR) 100 UNIT/ML SYR SQ SCH (21:39)
--- NOTE | 2018-10-30 23:01 | PN ---
PROGRESS NOTE DATE OF SERVICE: 10/30/2018. REASON FOR FOLLOWUP: Pneumonia. INTERVAL HISTORY: The patient is currently afebrile, has been breathing slightly comfortably. He continues to have a cough with green sputum. No nausea. No abdominal pain. Did have some bleeding per rectum. On examination, blood pressure 103/60 with a pulse of 84, temperature is 97.8. He is 99% on 2 L nasal cannula. General description is an elderly male up in the bed in no distress. Respiratory system: Unlabored breathing. Some coarse breath sounds bilaterally. No wheeze. Heart S1, S2. Regular rate and rhythm. Abdomen soft, no tenderness. LABS: BUN of 30, creatinine is 1.11. Blood cultures and sputum cultures have been negative. DIAGNOSTIC IMPRESSION AND PLAN: Patient admitted to the hospital with difficulty in breathing. Did have a component of pneumonia likely community acquired. Currently on continue finish course of therapy. Monitor clinical course closely. Continue supportive care. MMODL / IJN: [id number] /
[2018-10-31] MEDS: PYRIDOSTIGMINE 60 MG TAB PO SCH ×6 (00:34→20:59)
[2018-10-31] MEDS: BENZOCAINE/MENTHOL LOZENG 1 EACH LOZENGE MUCOUS MEM PRN ×2 (00:35→19:24)
[2018-10-31] MEDS: BENZOCAINE 20% HEMORRHOIDAL OINT 28GM RECTAL PRN (05:45)
[2018-10-31 07:14] LABS: Glucose,Whole Blood 81 mg/dL (75-99)
[2018-10-31] MEDS: FAMOTIDINE 20 MG TAB PO SCH ×2 (07:44→20:59)
[2018-10-31] MEDS: ISOSORBIDE MONONITRATE ER 30 MG TAB.ER.24H PO SCH (07:44)
[2018-10-31] MEDS: lamoTRIgine 100 MG TAB PO SCH ×2 (07:44→21:08)
[2018-10-31] MEDS: FERROUS SULFATE 325 MG TAB PO SCH ×2 (07:44→20:59)
[2018-10-31] MEDS: LOSARTAN 50 MG TAB PO SCH (07:44)
[2018-10-31] MEDS: MAGNESIUM OXIDE 400 MG TAB PO SCH ×2 (07:45→20:59)
[2018-10-31] MEDS: CALCIUM CARB-VIT D 500MG-200UN 1 EACH TAB PO SCH ×2 (07:45→20:59)
[2018-10-31] MEDS: FUROSEMIDE 40 MG TAB PO SCH (07:45)
[2018-10-31] MEDS: ASPIRIN 325 MG TAB PO SCH (07:45)
[2018-10-31] MEDS: ASCORBIC ACID 500 MG TAB PO SCH (07:45)
[2018-10-31] MEDS: CHOLECALCIFEROL 1,000 UNIT TAB PO SCH (07:45)
[2018-10-31] MEDS: FINASTERIDE 5 MG TAB PO SCH (07:45)
[2018-10-31] MEDS: PANTOPRAZOLE 40 MG TABLET PO SCH (07:45)
[2018-10-31] MEDS: guaiFENesin 600 MG TABLET.ER PO SCH ×2 (07:45→20:59)
[2018-10-31] MEDS: ENOXAPARIN 40 MG/0.4 ML SYRINGE SQ SCH (07:46)
[2018-10-31] MEDS: BENZONATATE 100 MG CAP PO SCH ×3 (07:46→21:08)
[2018-10-31] MEDS: SENNOSIDES 8.6 MG TAB PO SCH (07:46)
[2018-10-31] MEDS: predniSONE 20 MG TAB PO SCH (07:46)
[2018-10-31] MEDS: CYANOCOBALAMIN 500 MCG TAB PO SCH (07:46)
[2018-10-31] MEDS: LAMIVUDINE 300 MG PO SCH (07:47)
[2018-10-31] MEDS: LEVOFLOXACIN 750 MG TAB PO SCH (07:47)
[2018-10-31] MEDS: INSULIN ASPART (NovoLOG) 100 UNIT/ML VIAL SQ SCH ×8 (07:48→21:00)
[2018-10-31] MEDS: ARTIFICIAL TEARS-HYPROMELLOSE DROPS 15 ML BTL BOTH EYES SCH ×3 (07:48→21:01)
[2018-10-31] MEDS: IPRATROPIUM-ALBUTEROL 3 ML NEB INHALATION SCH ×4 (08:57→21:30)
[2018-10-31 09:49] LABS: Anisocytosis Moderate; Basophils % (A) 0 %; Eosinophils # (A) 0.1 k/uL (0-0.7); Eosinophils % (A) 1 %; HCT 27.5 % (39.0-53.0); HGB 8.4 gm/dL (13.0-17.5); Hypochromasia Marked; Lymphocytes % (A) 9 %; MCH 24.7 pg (25.0-35.0); MCHC 30.6 g/dL (31.0-37.0); MCV 80.9 fL (80.0-100.0); Microcytosis Slight; Monocytes # (A) 0.4 k/uL (0-1.0); Monocytes % (A) 4 %; Neutrophils # (A) 8.9 k/uL (1.3-7.7); Neutrophils % (A) 86 %; Platelet Count 188 k/uL (150-450); RBC 3.39 m/uL (4.30-5.90); RDW 20.4 % (11.5-15.5); WBC 10.4 k/uL (3.8-10.6)
[2018-10-31 10:18] LABS: Calcium 9.4 mg/dL (8.4-10.2); Magnesium 1.5 mg/dL (1.6-2.3); Potassium 4.1 mmol/L (3.5-5.1); Total Bilirubin 0.5 mg/dL (0.2-1.3); Total Protein 5.3 g/dL (6.3-8.2)
[2018-10-31 11:31] LABS: Glucose,Whole Blood 118 mg/dL (75-99)
[2018-10-31] MEDS ORDERED: Magnesium Replacement Protocol 1 EACH MISC MISCELLANE PRN (11:38)
[2018-10-31] MEDS: MAGNESIUM SULFATE-D5W PMX 1 GM in DEXTROSE/WATER 1 100ML.BAG IVPB SCH ×2 (11:51→13:43)
--- NOTE | 2018-10-31 11:53 | P.PN ---
Subjective Progress Note Date: 10/31/18 This is a 73-year-old male with a known past medical history of myasthenia gravis, interstitial lung disease, CVA, diabetes mellitus, liver cirrhosis, stomach ulcers, myocardial infarction, hypothyroidism, obstructive sleep apnea and memory impairment. Patient presents to the ER with complaints of shortness of breath and productive cough. He is coughing up thick yellowish to green sputum for about a week. Patient did have a low-grade temp of 99.5. Patient also reports worsening shortness of breath. EKG had shown sinus tachycardia with a heart rate of 103 chest x-ray report suspected interstitial lung disease difficult to exclude pneumonia. WBC elevated at 14.8. Hemoglobin 9.9 sodium 132 potassium is 5.7 BUN 22 creatinine 1.17 blood sugar 229 lactic acid 2.4 magnesium is 1.3 influenza screen negative. Patient started on Levaquin for possible pneumonia. Patient also complaining of diarrhea. He had 3 watery stools yesterday with lower abdominal discomfort. Check stool for C. diff. aniceto may reports having fevers chills and sweats. Also reporting nausea. Also worsening heartburn symptoms. Troponin was negative. Denies any burning with urination. Pulmonary services on consult. 10/26/2018 patient is complaining of productive cough. Sputum culture pending. Still having elevated lactic acid of 3.8. Did receive a fluid bolus yesterday for the elevated lactic acid. Chest x-ray did show some improved aeration. He currently remains on Levaquin and has been placed on prednisone by pulmonary service. Patient's white count has normalized from 14.8-10.5. Did have elevated blood sugar earlier this morning likely steroid related. Potassium is 5.4 magnesium is 1.5 and iron level is less than 2. Per nursing staff stools are formed and unable to collect stool for C. diff. patient reports that his chronic pain is better On 10/27/2018 patient was seen and examined on the medical floor medication and lab results were reviewed, he is alert and oriented 3 in no apparent distress he is still complaining of cough and shortness of breath otherwise he denies any complaints there is no fever or chills no headache or dizziness no chest pain no nausea or vomiting no abdominal pain no diarrhea no burning with urination no frequency or urgency and no hematuria. On 10/28/2018 patient was seen and examined on the medical floor, he is alert and oriented 3 in no apparent distress he is still complaining of severe cough and shortness of breath otherwise he denies any complaints there is no fever or chills no headache or dizziness no chest pain no nausea or vomiting no abdominal pain no diarrhea no burning with urination no frequency or urgency and no hematuria. 10/29/2018 patient reporting today still having a cough. He's had some improvement in his breathing. Also complaining of rectal bleeding. Was seen by surgical service. They've added Anusol for hemorrhoids. The patient is refusing any endoscopy. Hemoglobin is stable at 9.5. He did receive a dose of IV iron during this admission. Patient denies any chest pain. Denies any nausea or vomiting. Denies any burning with urination. 10/30/2018 patient still reporting cough and not feeling well. Patient still coughing up yellowish to clear sputum. Shortness of breath with activity. Still requiring oxygen. At home he reports that he is just the oxygen as needed. Denies any chest pain. Denies any nausea or vomiting. Did report a bowel movement with some blood earlier today. I cannot tolerate the Anusol suppositories. He is currently using hemorrhoid cream. Patient also requesting that his vitamin B12 and vitamin C be restarted On 10/31/2018 patient is still reporting cough not feeling well. Patient is alert and oriented 3. Patient reports that he doesn't feel quite ready to go home. remains on Levaquin and prednisone. Hemoglobin 8.4. Surgical services are following for hemorrhoids. At this time patient denies chest pain. Patient is still having some shortness of breath. Patient denies nausea vomiting or diarrhea. Patient denies any urinary burning or frequency. Objective - Vital Signs Vital signs: Vital Signs Temp 97.7 F 10/31/18 07:49 Pulse 84 10/31/18 09:07 Resp 16 10/31/18 02:10 BP 132/52 10/31/18 07:49 Pulse Ox 99 10/31/18 07:49 Intake & Output 10/30/18 10/31/18 10/31/18 18:59 06:59 18:59 Intake Total 240 Balance 240 Weight 112.9 kg 114 kg Intake: Oral 240 Other: Voiding Method Toilet Toilet # Voids 3 4 3 # Bowel Movements 3 2 - Exam Head normocephalic Neck supple Lungs coarse breath sounds Heart regular rate and rhythm S1-S2, no rub or gallop Abdomen is soft nontender nondistended positive bowel sounds no hepatosplenomegaly Extremities right foot in boot. Left leg chronic stasis changes. Cellulitis changes have improved Neuro alert and orientated to 3 - Labs CBC & Chem 7: 10/31/18 09:09 10/31/18 09:09 Labs: Abnormal Lab Results - Last 24 Hours (Table) 10/30/18 10/30/18 10/30/18 Range/Units 11:47 16:48 20:41 RBC (4.30-5.90) m/uL Hgb (13.0-17.5) gm/dL Hct (39.0-53.0) % MCH (25.0-35.0) pg MCHC (31.0-37.0) g/dL RDW (11.5-15.5) % Neutrophils # (1.3-7.7) k/uL Sodium (137-145) mmol/L BUN (9-20) mg/dL POC Glucose (mg/dL) 195 H 289 H 268 H (75-99) mg/dL Magnesium (1.6-2.3) mg/dL Total Protein (6.3-8.2) g/dL Albumin (3.5-5.0) g/dL 10/31/18 10/31/18 10/31/18 Range/Units 09:09 09:09 11:30 RBC 3.39 L (4.30-5.90) m/uL Hgb 8.4 L (13.0-17.5) gm/dL Hct 27.5 L (39.0-53.0) % MCH 24.7 L (25.0-35.0) pg MCHC 30.6 L (31.0-37.0) g/dL RDW 20.4 H (11.5-15.5) % Neutrophils # 8.9 H (1.3-7.7) k/uL Sodium 134 L (137-145) mmol/L BUN 35 H (9-20) mg/dL POC Glucose (mg/dL) 118 H (75-99) mg/dL Magnesium 1.5 L (1.6-2.3) mg/dL Total Protein 5.3 L (6.3-8.2) g/dL Albumin 3.0 L (3.5-5.0) g/dL Microbiology - Last 24 Hours (Table) 10/25/18 11:10 Blood Culture - Preliminary Blood No Growth after 120 hours Assessment and Plan Assessment: 1. Cough with shortness of breath possibly related to community-acquired pneumonia: Chest x-ray shows suspected interstitial lung disease. Difficult to exclude pneumonia. Patient did have a temp of 99.5 white count 14.8 and his been started on Levaquin in the ER. Influenza screen negative. Continue nebulizer treatments. Pulmonary service following. Chest x-ray from this morning shows left lower lobe infiltrate with interstitial lung disease. Sputum culture normal respiratory brian 2. Sepsis present on admission likely due to pneumonia patient does have elevated white count, tachycardic, lactic acid elevated at 2.4. Lactic acid remains elevated at 3.8. . Blood culture negative 3. Chronic hypoxemic respiratory failure home O2 dependent. With known history of interstitial lung disease and pulmonary fibrosis 4. Iron deficiency anemia: Iron levels low less than 2. Patient did receive a dose of IV iron. Continue oral iron. hemoglobin 8.4. We'll continue to monitor. 5. Hyperkalemia : Aldactone is been discontinued during this admission. Potassium level improved 6. Hyponatremia sodium 132. Continue with IV fluid hydration 7. Mild dehydration BUN elevated at 22. Improved 9. Mild Left leg cellulitis: Resolved with antibiotics 10. Old Right leg fracture. Currently in an orthopedic boot. [facility] outpatient 11. History of myasthenia gravis 12. History of interstitial lung disease 13. History of nonalcoholic liver cirrhosis And esophageal varices 14. Diabetes mellitus type 2: Patient has had a few elevated blood sugars. The highest is 305. Patient has been placed on prednisone likely contributing factor to elevated blood sugars. We will increase the Levemir to 47 units and continue sliding scale coverage. A1c 7.9 last blood sugar 188 15. Chronic pain syndrome continue with morphine pump 16. History of obstructive sleep apnea 17. Hypomagnesemia: Magnesium 1.5. Will increase oral magnesium to twice a day. Recheck magnesium level in a.m. 18. Diarrhea resolved. Unable to collect stool for C. diff. 19. Rectal bleeding likely related to hemorrhoids. Patient seen by surgical service. Has ALLERGY to Anusol suppositories. Continue with topical hemorrhoid cream. Patient has refused any endoscopy at this time, 20. Resume patient's vitamin B12 and vitamin C supplements Consult PT OT GI prophylaxis Pepcid and DVT prophylaxis Lovenox I performed an examination of the patient and discussed their management with the Nurse Practitioner. I have reviewed the Nurse Practitioner's notes and agree with the documented findings and plan of care
[2018-10-31] MEDS: MORPHINE PAIN PUMP INTRATHECA SCH (13:45)
--- NOTE | 2018-10-31 14:00 | PN ---
PROGRESS NOTE DATE OF SERVICE: 10/31/2018. REASON FOR FOLLOWUP: Pneumonia. INTERVAL HISTORY: The patient is currently afebrile. Patient has been breathing comfortably. Denies having any chest pain. Occasional cough. No abdominal pain or any worsening bleeding per rectum. PHYSICAL EXAMINATION: Blood pressure is 132/52 with a pulse of 80, temperature 97.3, 99% on room air. General description is an elderly male, up in the bed in no distress. RESPIRATORY SYSTEM: Unlabored breathing. Some coarse breath sounds at the bases, no wheeze. HEART: S1, S2. Regular rate and rhythm. ABDOMEN: Soft, no tenderness. LABS: Hemoglobin 8.4, white count 10.4, BUN of 35, creatinine 1.10. DIAGNOSTIC IMPRESSION AND PLAN: Patient within the hospital with pneumonia, community-acquired. His sputum has been negative for resistant pathogen. Currently on Levaquin because of his cephalexin allergy to finish a course of therapy. Continue supportive care. MMODL / IJN: [id number] /
[2018-10-31] MEDS: PROMETHAZ-COD 6.25-10 MG/5 ML 5 ML CUP PO PRN (15:10)
[2018-10-31 17:05] LABS: Glucose,Whole Blood 269 mg/dL (75-99)
--- NOTE | 2018-10-31 19:00 | P.PN ---
Subjective Progress Note Date: 10/31/18 Principal diagnosis: Acute purulent tracheobronchitis. This is 73-year-old white male patient of Dr. Osorio, with past medical history of interstitial lung disease/pulmonary fibrosis, with chronic hypoxemic respiratory failure we goes to the [place] [facility] for healthcare, and patient was evaluated at the [facility] for his underlying interstitial lung disease. He never had a lung biopsy done, but based on his PFT he was told he has a severe restrictive defect, and no evidence of COPD. Medical history includes a coronary artery disease, chronic congestive heart failure, diabetes mellitus, GERD, hypertension, hyperlipidemia, previous history of myocardial infarction, seizure disorder, obstructive sleep apnea on CPAP therapy, and patient is a former smoker. Patient presented to the hospital on 10/25/2018 with complaints of increased difficulty in breathing, coughing, production of yellow phlegm, chills, but no fevers, patient had been sick for approximately 2 weeks. No chest pain or hemoptysis, he is feeling more fatigued, and is complaining of increased swelling in his lower extremities. Chest x-ray was completed and showed aspect of interstitial lung disease increased interstitium, basilar pneumonia was difficult to exclude. Patient has been afebrile, he is on 3 L of oxygen with a pulse ox of 95%, hemodynamically patient is stable, lung sounds reveal coarse rhonchi, and wheezes. Lab work showed a white blood cell count of 14.8, hemoglobin of 9.9, sodium of 132, potassium is 5.7, chloride is 102, BUN was 22 and creatinine was 1.17, asthma lactic acid was slightly elevated at 2.4, wheezing level was 1.3, AST was 67, ALT was 39, alkaline phosphatase was 72, troponin was negative 1. Patient was started on Levaquin for antibiotic coverage, nebulized bronchodilators, he is on maintenance prednisone dose of 10 mg at bedtime. We were asked to see the patient in consultation for dyspnea likely related to underlying tracheobronch itis, and underlying pneumonia was difficult to exclude. On 10/28/2018 patient is seen in follow-up on medical surgical floor. Today he seen sitting up in the recliner, in no acute distress, he states he still coughs a lot especially when he is laying down, and he is bringing up some yellow phlegm, but overall she sounds last bronchospastic on today's exam, and he states he is feeling better. Remains on 2 L of oxygen. Pulse ox is 97%, he is afebrile, hemodynamically stable, lung sounds reveal some scattered expiratory wheezes, and some rhonchi, but less congested and bronchospastic, pneumatic coverage in the form of Levaquin, no fever or chills. On 10/29/2018 patient is seen in follow-up on medical surgical floor. She is sitting up in the recliner, in no acute distress, lung sounds are positive for coarse rales at the bases, with some scattered wheezes, oral last bronchospastic, he is on 2 L of oxygen his pulse ox is 99%, still has some coughing spells, not bringing up any phlegm. Repeat chest x-ray showed left lower lobe infiltrate. Patient is on Levaquin, blood and sputum culture showed no growth. Today's blood work showed a white blood cell count of 10.3, hemoglobin of 9.5, BMP was unremarkable. He developed some dark red blood per rectum, apparently has a history of hemorrhoids with previous colonoscopy, surgery is following, hemoglobin is stable, hemodynamically patient is stable, he declined any endoscopic studies, will continue with current medical treatment, continue with IV steroids antibiotics and breathing treatments. Overall patient is stable, he is improving from pulmonary perspective On 10/30/2018 patient is seen in follow-up on medical surgical floor. He is up in the chair, in no acute distress, his breathing continues to improve, patient is coughing less. Less dyspneic. Vital signs are stable, patient's hemoglobin is trending down, down to 8.5 from 9.1 on yesterday's labs. No fever or chills. Lung sounds reveal some scattered expiratory wheezes, some coarse crackles at the bases. Patient did have an episode of bright red blood this morning in the toilet surgeries following. The patient is seen today the first 2018 in follow-up on the regular medical floor. He is currently sitting up in a chair at the bedside. Awake and alert in no acute distress. He states he is still not quite back to his baseline. Continues with significant coughing. He is maintaining good O2 saturations in the 90s on 2 L/m per nasal cannula. He has been afebrile. Hemodynamically stable. White count 10.4. Hemoglobin 8.4. Creatinine 1.10. He is continued on bronchodilators, prednisone, promethazine with codeine, Tessalon Perles. He has completed his course of antibiotics. Objective - Vital Signs Vital signs: Vital Signs Temp 97.6 F 10/31/18 13:48 Pulse 90 10/31/18 16:38 Resp 16 10/31/18 02:10 BP 125/63 10/31/18 13:48 Pulse Ox 97 10/31/18 13:48 Intake & Output 10/30/18 10/31/18 10/31/18 18:59 06:59 18:59 Intake Total 240 Balance 240 Weight 112.9 kg 114 kg Intake: Oral 240 Other: Voiding Method Toilet Toilet # Voids 3 4 3 # Bowel Movements 3 2 - Exam GENERAL EXAM: Alert, pleasant, 73-year-old white male on 2 L of oxygen, comfortable in no apparent distress. HEAD: Normocephalic/atraumatic. EYES: Normal reaction of pupils, equal size. Conjunctiva pink, sclera white. NOSE: Clear with pink turbinates. THROAT: No erythema or exudates. NECK: No masses, no JVD, no thyroid enlargement, no adenopathy. CHEST: No chest wall deformity. Symmetrical expansion. LUNGS: Equal air entry with few scattered rhonchi and wheezes CVS: Regular rate and rhythm, normal S1 and S2, no gallops, no murmurs, no rubs ABDOMEN: Soft, nontender. No hepatosplenomegaly, normal bowel sounds, no guarding or rigidity. EXTREMITIES: No clubbing, no edema, no cyanosis, 2+ pulses and upper and lower extremities. MUSCULOSKELETAL: Muscle strength and tone normal. SPINE: No scoliosis or deformity SKIN: No rashes CENTRAL NERVOUS SYSTEM: No focal deficits, tone is normal in all 4 extremities. PSYCHIATRIC: Alert and oriented -3. Appropriate affect. Intact judgment and insight. - Labs CBC & Chem 7: 10/31/18 09:09 10/31/18 09:09 Labs: Abnormal Lab Results - Last 24 Hours (Table) 10/30/18 10/31/18 10/31/18 Range/Units 20:41 09:09 09:09 RBC 3.39 L (4.30-5.90) m/uL Hgb 8.4 L (13.0-17.5) gm/dL Hct 27.5 L (39.0-53.0) % MCH 24.7 L (25.0-35.0) pg MCHC 30.6 L (31.0-37.0) g/dL RDW 20.4 H (11.5-15.5) % Neutrophils # 8.9 H (1.3-7.7) k/uL Sodium 134 L (137-145) mmol/L BUN 35 H (9-20) mg/dL POC Glucose (mg/dL) 268 H (75-99) mg/dL Magnesium 1.5 L (1.6-2.3) mg/dL Total Protein 5.3 L (6.3-8.2) g/dL Albumin 3.0 L (3.5-5.0) g/dL 10/31/18 10/31/18 Range/Units 11:30 17:03 RBC (4.30-5.90) m/uL Hgb (13.0-17.5) gm/dL Hct (39.0-53.0) % MCH (25.0-35.0) pg MCHC (31.0-37.0) g/dL RDW (11.5-15.5) % Neutrophils # (1.3-7.7) k/uL Sodium (137-145) mmol/L BUN (9-20) mg/dL POC Glucose (mg/dL) 118 H 269 H (75-99) mg/dL Magnesium (1.6-2.3) mg/dL Total Protein (6.3-8.2) g/dL Albumin (3.5-5.0) g/dL Microbiology - Last 24 Hours (Table) 10/25/18 11:10 Blood Culture - Final Blood No Growth after 144 hours Assessment and Plan Assessment: Assessment: #1. Acute purulent tracheobronchitis, chest x-ray showed interstitial changes, basilar pneumonia is difficult to exclude, community acquired pneumonia #2. History of interstitial lung disease/pulmonary fibrosis with history of chronic hypoxemic respiratory failure #3. Former history of smoking #4. History of coronary artery disease #5. History of chronic congestive heart failure, unspecified #6. CVA/TIA #7. Diabetes mellitus type 2 with diabetic neuropathy #8. Hypertension, hyperlipidemia #9. History of myocardial infarction #10. Obstructive sleep apnea on CPAP therapy #11. Chronic back pain #12. History of chronic liver disease, and esophageal varices #13. Seizure disorder #14. 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 History of myasthenia gravis, on Mestinon Plan: The patient was seen and evaluated by Dr. Khan. He is improved today as compared to yesterday. The patient is feeling as though he is not back to his baseline. He is somewhat reluctant to be discharged with concerns he will return. We'll see how the next 24 hours ago. We'll continue with the current treatment plans. He's completed his course of antibiotics. We'll continue to follow and make further recommendations based on his clinical status. I, the cosigning physician, performed a history & physical examination of the patient. Lungs sounds with few scattered rhonchi, end extremity wheezing. Maintaining good O2 saturations in the 90s on 2 L/m per nasal cannula. I discussed the assessment and plan of care with my nurse practitioner, Damaris Britt. I attest to the above note as dictated by her.
[2018-10-31 20:48] LABS: Glucose,Whole Blood 230 mg/dL (75-99)
[2018-10-31] MEDS: INSULIN DETEMIR (LEVEMIR) 100 UNIT/ML SYR SQ SCH (21:00)
[2018-11-01] MEDS: PYRIDOSTIGMINE 60 MG TAB PO SCH ×7 (00:30→23:23)
[2018-11-01] MEDS: BENZOCAINE/MENTHOL LOZENG 1 EACH LOZENGE MUCOUS MEM PRN ×3 (00:31→20:42)
[2018-11-01 07:08] LABS: Glucose,Whole Blood 72 mg/dL (75-99)
[2018-11-01] MEDS: IPRATROPIUM-ALBUTEROL 3 ML NEB INHALATION SCH ×4 (08:27→20:49)
[2018-11-01] MEDS: INSULIN ASPART (NovoLOG) 100 UNIT/ML VIAL SQ SCH ×7 (08:51→20:43)
[2018-11-01] MEDS: CYANOCOBALAMIN 500 MCG TAB PO SCH (09:46)
[2018-11-01] MEDS: CHOLECALCIFEROL 1,000 UNIT TAB PO SCH (09:46)
[2018-11-01] MEDS: CALCIUM CARB-VIT D 500MG-200UN 1 EACH TAB PO SCH ×2 (09:46→20:42)
[2018-11-01] MEDS: ASPIRIN 325 MG TAB PO SCH (09:46)
[2018-11-01] MEDS: PROMETHAZ-COD 6.25-10 MG/5 ML 5 ML CUP PO PRN ×2 (09:46→16:59)
[2018-11-01] MEDS: BENZONATATE 100 MG CAP PO SCH ×3 (09:46→20:42)
[2018-11-01 09:49] LABS: Anisocytosis Moderate; Basophils % (A) 0 %; Eosinophils % (A) 0 %; HCT 27.8 % (39.0-53.0); HGB 8.6 gm/dL (13.0-17.5); Hypochromasia Moderate; Lymphocytes % (A) 10 %; MCH 25.1 pg (25.0-35.0); MCHC 30.8 g/dL (31.0-37.0); MCV 81.4 fL (80.0-100.0); Mean Platelet Volume 6.6; Microcytosis Slight; Monocytes # (A) 0.5 k/uL (0-1.0); Monocytes % (A) 5 %; Neutrophils # (A) 8.2 k/uL (1.3-7.7); Neutrophils % (A) 84 %; Platelet Count 180 k/uL (150-450); RBC 3.42 m/uL (4.30-5.90); RDW 21.3 % (11.5-15.5); WBC 9.8 k/uL (3.8-10.6)
[2018-11-01 09:58] LABS: Albumin 3.1 g/dL (3.5-5.0); Calcium 9.4 mg/dL (8.4-10.2); Magnesium 1.7 mg/dL (1.6-2.3); Potassium 4.1 mmol/L (3.5-5.1); Total Bilirubin 0.4 mg/dL (0.2-1.3); Total Protein 5.5 g/dL (6.3-8.2)
[2018-11-01] MEDS: ENOXAPARIN 40 MG/0.4 ML SYRINGE SQ SCH (10:07)
[2018-11-01] MEDS: ISOSORBIDE MONONITRATE ER 30 MG TAB.ER.24H PO SCH (10:08)
[2018-11-01] MEDS: FUROSEMIDE 40 MG TAB PO SCH (10:08)
[2018-11-01] MEDS: guaiFENesin 600 MG TABLET.ER PO SCH ×2 (10:08→20:42)
[2018-11-01] MEDS: LAMIVUDINE 300 MG PO SCH (10:08)
[2018-11-01] MEDS: LOSARTAN 50 MG TAB PO SCH (10:08)
[2018-11-01] MEDS: lamoTRIgine 100 MG TAB PO SCH ×2 (10:08→20:42)
[2018-11-01] MEDS: FERROUS SULFATE 325 MG TAB PO SCH ×2 (10:08→20:43)
[2018-11-01] MEDS: FINASTERIDE 5 MG TAB PO SCH (10:08)
[2018-11-01] MEDS: FAMOTIDINE 20 MG TAB PO SCH ×2 (10:08→20:42)
[2018-11-01] MEDS: SENNOSIDES 8.6 MG TAB PO SCH (10:09)
[2018-11-01] MEDS: MAGNESIUM OXIDE 400 MG TAB PO SCH ×2 (10:09→20:42)
[2018-11-01] MEDS: predniSONE 20 MG TAB PO SCH (10:15)
[2018-11-01] MEDS: ARTIFICIAL TEARS-HYPROMELLOSE DROPS 15 ML BTL BOTH EYES SCH ×3 (10:17→20:44)
[2018-11-01 11:50] LABS: Glucose,Whole Blood 152 mg/dL (75-99)
--- NOTE | 2018-11-01 13:11 | P.PN ---
Subjective Progress Note Date: 11/01/18 This is a 73-year-old male with a known past medical history of myasthenia gravis, interstitial lung disease, CVA, diabetes mellitus, liver cirrhosis, stomach ulcers, myocardial infarction, hypothyroidism, obstructive sleep apnea and memory impairment. Patient presents to the ER with complaints of shortness of breath and productive cough. He is coughing up thick yellowish to green sputum for about a week. Patient did have a low-grade temp of 99.5. Patient also reports worsening shortness of breath. EKG had shown sinus tachycardia with a heart rate of 103 chest x-ray report suspected interstitial lung disease difficult to exclude pneumonia. WBC elevated at 14.8. Hemoglobin 9.9 sodium 132 potassium is 5.7 BUN 22 creatinine 1.17 blood sugar 229 lactic acid 2.4 magnesium is 1.3 influenza screen negative. Patient started on Levaquin for possible pneumonia. Patient also complaining of diarrhea. He had 3 watery stools yesterday with lower abdominal discomfort. Check stool for C. diff. aniceto may reports having fevers chills and sweats. Also reporting nausea. Also worsening heartburn symptoms. Troponin was negative. Denies any burning with urination. Pulmonary services on consult. 10/26/2018 patient is complaining of productive cough. Sputum culture pending. Still having elevated lactic acid of 3.8. Did receive a fluid bolus yesterday for the elevated lactic acid. Chest x-ray did show some improved aeration. He currently remains on Levaquin and has been placed on prednisone by pulmonary service. Patient's white count has normalized from 14.8-10.5. Did have elevated blood sugar earlier this morning likely steroid related. Potassium is 5.4 magnesium is 1.5 and iron level is less than 2. Per nursing staff stools are formed and unable to collect stool for C. diff. patient reports that his chronic pain is better On 10/27/2018 patient was seen and examined on the medical floor medication and lab results were reviewed, he is alert and oriented 3 in no apparent distress he is still complaining of cough and shortness of breath otherwise he denies any complaints there is no fever or chills no headache or dizziness no chest pain no nausea or vomiting no abdominal pain no diarrhea no burning with urination no frequency or urgency and no hematuria. On 10/28/2018 patient was seen and examined on the medical floor, he is alert and oriented 3 in no apparent distress he is still complaining of severe cough and shortness of breath otherwise he denies any complaints there is no fever or chills no headache or dizziness no chest pain no nausea or vomiting no abdominal pain no diarrhea no burning with urination no frequency or urgency and no hematuria. 10/29/2018 patient reporting today still having a cough. He's had some improvement in his breathing. Also complaining of rectal bleeding. Was seen by surgical service. They've added Anusol for hemorrhoids. The patient is refusing any endoscopy. Hemoglobin is stable at 9.5. He did receive a dose of IV iron during this admission. Patient denies any chest pain. Denies any nausea or vomiting. Denies any burning with urination. 10/30/2018 patient still reporting cough and not feeling well. Patient still coughing up yellowish to clear sputum. Shortness of breath with activity. Still requiring oxygen. At home he reports that he is just the oxygen as needed. Denies any chest pain. Denies any nausea or vomiting. Did report a bowel movement with some blood earlier today. I cannot tolerate the Anusol suppositories. He is currently using hemorrhoid cream. Patient also requesting that his vitamin B12 and vitamin C be restarted On 10/31/2018 patient is still reporting cough not feeling well. Patient is alert and oriented 3. Patient reports that he doesn't feel quite ready to go h ome. remains on Levaquin and prednisone. Hemoglobin 8.4. Surgical services are following for hemorrhoids. At this time patient denies chest pain. Patient is still having some shortness of breath. Patient denies nausea vomiting or diarrhea. Patient denies any urinary burning or frequency. 11/01/2018 patient stating that he does not feel ready for discharge. Still having productive cough some shortness of breath. Blood sugar was 77. Insulin has been adjusted. Patient requesting a B12 level be checked due to his low energy level. Patient now refusing to walk due to his right leg injury. He reports that he was supposed to see Dr. Houston in the outpatient setting and had missed the appointment due to his hospitalization. Dr. Houston will be consulted. Patient is complaining of bilateral lower leg pain. Venous Dopplers will be ordered. Also note patient is still reporting some blood spotting in his stool. Objective - Vital Signs Vital signs: Vital Signs Temp 97.7 F 11/01/18 07:33 Pulse 82 11/01/18 12:12 Resp 15 11/01/18 07:33 BP 144/66 11/01/18 07:33 Pulse Ox 99 11/01/18 07:33 Intake & Output 10/31/18 11/01/18 11/01/18 18:59 06:59 18:59 Intake Total 240 1020 Output Total 1000 Balance -760 1020 Weight 115 kg Intake: Oral 240 1020 Output: Urine 1000 Other: Voiding Method Toilet # Voids 3 2 - Exam Head normocephalic Neck supple Lungs coarse breath sounds Heart regular rate and rhythm S1-S2, no rub or gallop Abdomen is soft nontender nondistended positive bowel sounds no hepatosplenomegaly Extremities chronic stasis changes bilateral lower extremities. Bilateral lower extremity edema. Neuro alert and orientated to 3 - Labs CBC & Chem 7: 11/01/18 09:19 11/01/18 09:19 Labs: Abnormal Lab Results - Last 24 Hours (Table) 10/31/18 10/31/18 11/01/18 Range/Units 17:03 20:45 07:06 RBC (4.30-5.90) m/uL Hgb (13.0-17.5) gm/dL Hct (39.0-53.0) % MCHC (31.0-37.0) g/dL RDW (11.5-15.5) % Neutrophils # (1.3-7.7) k/uL Sodium (137-145) mmol/L BUN (9-20) mg/dL Glucose (74-99) mg/dL POC Glucose (mg/dL) 269 H 230 H 72 L (75-99) mg/dL Total Protein (6.3-8.2) g/dL Albumin (3.5-5.0) g/dL 11/01/18 11/01/18 11/01/18 Range/Units 09:19 09:19 11:49 RBC 3.42 L (4.30-5.90) m/uL Hgb 8.6 L (13.0-17.5) gm/dL Hct 27.8 L (39.0-53.0) % MCHC 30.8 L (31.0-37.0) g/dL RDW 21.3 H (11.5-15.5) % Neutrophils # 8.2 H (1.3-7.7) k/uL Sodium 133 L (137-145) mmol/L BUN 30 H (9-20) mg/dL Glucose 132 H (74-99) mg/dL POC Glucose (mg/dL) 152 H (75-99) mg/dL Total Protein 5.5 L (6.3-8.2) g/dL Albumin 3.1 L (3.5-5.0) g/dL Microbiology - Last 24 Hours (Table) 10/25/18 11:10 Blood Culture - Final Blood No Growth after 144 hours Assessment and Plan Assessment: 1. Community-acquired pneumonia with cough and shortness of breath: Chest x-ray shows suspected interstitial lung disease. Difficult to exclude pneumonia. Patient did have a temp of 99.5 white count 14.8 and his been started on Levaquin in the ER. Influenza screen negative. Continue nebulizer treatments. Sputum culture normal respiratory brian. continue Levaquin. Infectious dise ase following 2. Sepsis present on admission likely due to pneumonia patient does have elevated white count, tachycardic, lactic acid elevated at 2.4. Lactic acid remains elevated at 3.8. . Blood culture negative 3. Chronic hypoxemic respiratory failure home O2 dependent. With known history of interstitial lung disease and pulmonary fibrosis 4. Iron deficiency anemia: Iron levels low less than 2. Patient did receive a dose of IV iron. Continue oral iron 5. Hyperkalemia : Potassium level improved. Resume patient's Aldactone 6. Hyponatremia sodium 132. Continue with IV fluid hydration 7. Mild dehydration BUN elevated at 22. Improved 9. Mild Left leg cellulitis: Resolved with antibiotics 10. Old Right leg fracture. Currently in an orthopedic boot. [facility] outpatient 11. History of myasthenia gravis 12. History of interstitial lung disease 13. History of nonalcoholic liver cirrhosis And esophageal varices 14. Diabetes mellitus type 2: Patient has had a few elevated blood sugars. The highest is 305. Patient has been placed on prednisone likely contributing factor to elevated blood sugars. We will increase the Levemir to 47 units and continue sliding scale coverage. A1c 7.9. episodes of hypoglycemia. discontinue patient's 3 units at bedtime. Decrease his Levemir from 47-45 units. Continue to monitor 15. Chronic pain syndrome continue with morphine pump 16. History of obstructive sleep apnea 17. Hypomagnesemia: Magnesium level I.7 continue with his oral magnesium. 18. Diarrhea resolved. Unable to collect stool for C. diff. 19. Rectal bleeding likely related to hemorrhoids. Patient seen by surgical service. Has ALLERGY to Anusol suppositories. Continue with topical hemorrhoid cream. Patient has refused any endoscopy at this time Plan Consult Dr. Houston regarding patient's right leg fracture. Await his recommendations regarding activity level Check venous Doppler for lower extremity edema. Resume patient's Aldactone 50 mg twice a day Check vitamin B12 level Insulin adjusted for hypoglycemia GI prophylaxis Pepcid and DVT prophylaxis Lovenox I performed an examination of the patient and discussed their management with the physician Patient Accounts Coordinator. I have reviewed the Physician Patient Accounts Coordinator's notes and agree with the documented findings and plan of care
[2018-11-01] MEDS: PANTOPRAZOLE 40 MG TABLET PO SCH (13:13)
[2018-11-01] MEDS: ASCORBIC ACID 500 MG TAB PO SCH (13:13)
--- NOTE | 2018-11-01 14:47 | XR ---
Right ankle HISTORY: Fracture 3 views of the right ankle correlated to previous exam 08/29/2017 Oblique distal metaphyseal right fibular fracture is noted as on prior exam. Persistent lucency may r epresent nonunion. There is soft tissue swelling present. No dislocation. There is a plantar calcanea l spur. IMPRESSION: Distal fibular fracture, soft tissue swelling.
--- NOTE | 2018-11-01 14:51 | XR ---
Right knee HISTORY: Fibular fracture 4 views of the right knee, comparison prior exam dated 11/06/2013 Mild osteoarthritic changes present with marginal spurring in the medial compartment, patellofemoral joint. Alignment, bone mineralization are maintained. Small suprapatellar joint effusion is suspected . Joint space loss at the patellofemoral joint. IMPRESSION: Osteoarthritis.
--- NOTE | 2018-11-01 15:31 | PN ---
PROGRESS NOTE DATE OF SERVICE: 11/01/2018 REASON FOR FOLLOWUP: Pneumonia. INTERVAL HISTORY: The patient is currently afebrile, has been breathing comfortably. Denies having any chest pain or any cough. No abdominal pain, no diarrhea. PHYSICAL EXAMINATION: Blood pressure is 144/56, pulse of 71 temperature 97.7, he is 99% on room air. The patient is an elderly male, up in the bed in no distress. RESPIRATORY SYSTEM: Unlabored breathing, occasional wheeze. HEART: S1, S2. Regular rate and rhythm. ABDOMEN: Soft, on tenderness. LABS: Hemoglobin 8.4 with a white count of 9.2, BUN of 30, creatinine 1.03. DIAGNOSTIC IMPRESSION AND PLAN: Patient admitted to the hospital with pneumonia. This patient did have underlying obstructive lung disease. Sputum has been resistant pathogen. Did have KEFLEX allergy. Currently on Levaquin to continue for another 3 days to finish a 10-day course of therapy. Continue supportive care. MMODL / IJN: [id number] /
[2018-11-01 16:59] LABS: Glucose,Whole Blood 381 mg/dL (75-99)
[2018-11-01] MEDS: LEVOFLOXACIN 500 MG TAB PO SCH (16:59)
[2018-11-01] MEDS: MORPHINE PAIN PUMP INTRATHECA SCH (17:31)
--- NOTE | 2018-11-01 17:49 | P.PN ---
Subjective Progress Note Date: 11/01/18 Principal diagnosis: Shortness of breath, coughing, yellow phlegm production, chills This is 73-year-old white male patient of Dr. Osorio, with past medical history of interstitial lung disease/pulmonary fibrosis, with chronic hypoxemic respiratory failure we goes [facility], and patient was evaluated at the [facility] for his underlying interstitial lung disease. He never had a lung biopsy done, but based on his PFT he was told he has a severe restrictive defect, and no evidence of COPD. Medical history includes a coronary artery disease, chronic congestive heart failure, diabetes mellitus, GERD, hypertension, hyperlipidemia, previous history of myocardial infarction, seizure disorder, obstructive sleep apnea on CPAP therapy, and patient is a former smoker. Patient presented to the hospital on 10/25/2018 with complaints of increased difficulty in breathing, coughing, production of yellow phlegm, chills, but no fevers, patient had been sick for approximately 2 weeks. No chest pain or hemoptysis, he is feeling more fa tigued, and is complaining of increased swelling in his lower extremities. Chest x-ray was completed and showed aspect of interstitial lung disease increased interstitium, basilar pneumonia was difficult to exclude. Patient has been afebrile, he is on 3 L of oxygen with a pulse ox of 95%, hemodynamically patient is stable, lung sounds reveal coarse rhonchi, and wheezes. Lab work showed a white blood cell count of 14.8, hemoglobin of 9.9, sodium of 132, potassium is 5.7, chloride is 102, BUN was 22 and creatinine was 1.17, asthma lactic acid was slightly elevated at 2.4, wheezing level was 1.3, AST was 67, ALT was 39, alkaline phosphatase was 72, troponin was negative 1. Patient was started on Levaquin for antibiotic coverage, nebulized bronchodilators, he is on maintenance prednisone dose of 10 mg at bedtime. We were asked to see the patient in consultation for dyspnea likely related to underlying tracheobronchitis, and underlying pneumonia was difficult to exclude. On 10/28/2018 patient is seen in follow-up on medical surgical floor. Today he seen sitting up in the recliner, in no acute distress, he states he still coughs a lot especially when he is laying down, and he is bringing up some yellow phlegm, but overall she sounds last bronchospastic on today's exam, and he s tates he is feeling better. Remains on 2 L of oxygen. Pulse ox is 97%, he is afebrile, hemodynamically stable, lung sounds reveal some scattered expiratory wheezes, and some rhonchi, but less congested and bronchospastic, pneumatic coverage in the form of Levaquin, no fever or chills. On 10/29/2018 patient is seen in follow-up on medical surgical floor. She is sitting up in the recliner, in no acute distress, lung sounds are positive for coarse rales at the bases, with some scattered wheezes, oral last bronchospastic, he is on 2 L of oxygen his pulse ox is 99%, still has some coughing spells, not bringing up any phlegm. Repeat chest x-ray showed left lower lobe infiltrate. Patient is on Levaquin, blood and sputum culture showed no growth. Today's blood work showed a white blood cell count of 10.3, hemoglobin of 9.5, BMP was unremarkable. He developed some dark red blood per rectum, apparently has a history of hemorrhoids with previous colonoscopy, surgery is following, hemoglobin is stable, hemodynamically patient is stable, he declined any endoscopic studies, will continue with current medical treatment, continue with IV steroids antibiotics and breathing treatments. Over all patient is stable, he is improving from pulmonary perspective On 10/30/2018 patient is seen in follow-up on medical surgical floor. He is up in the chair, in no acute distress, his breathing continues to improve, patient is coughing less. Less dyspneic. Vital signs are stable, patient's hemoglobin is trending down, down to 8.5 from 9.1 on yesterday's labs. No fever or chills. Lung sounds reveal some scattered expiratory wheezes, some coarse crackles at the bases. Patient did have an episode of bright red blood this morning in the toilet surgeries following. On 11/01/2018 patient seen in follow-up on medical surgical floor. He sitting up in the recliner, in no acute distress, he states he still has some residual chest congestion, he is able to bring up some whitish colored sputum, with some dark specks in it, but no overt hemoptysis. He is on 2 L of oxygen with a pulse ox of 96%, afebrile, hemodynamically stable, lung sounds are positive for some coarse rhonchi, blood and sputum cultures have shown no growth so far. Patient is on antibiotic coverage, including Levaquin. No fever or chills Objective - Vital Signs Vital signs: Vital Signs Temp 97.3 F L 11/01/18 15:07 Pulse 76 11/01/18 16:29 Resp 18 11/01/18 16:29 BP 99/52 11/01/18 15:07 Pulse Ox 96 11/01/18 15:07 Intake & Output 10/31/18 11/01/18 11/01/18 18:59 06:59 18:59 Intake Total 240 1020 Output Total 1000 Balance -760 1020 Weight 115 kg Intake: Oral 240 1020 Output: Urine 1000 Other: Voiding Method Toilet # Voids 3 2 # Bowel Movements 1 - Exam GENERAL EXAM: Alert, pleasant, 73-year-old white male on 2 L of oxygen, comfortable in no apparent distress. HEAD: Normocephalic/atraumatic. EYES: Normal reaction of pupils, equal size. Conjunctiva pink, sclera white. NOSE: Clear with pink turbinates. THROAT: No erythema or exudates. NECK: No masses, no JVD, no thyroid enlargement, no adenopathy. CHEST: No chest wall deformity. Symmetrical expansion. LUNGS: Equal air entry with diffuse rhonchi CVS: Regular rate and rhythm, normal S1 and S2, no gallops, no murmurs, no rubs ABDOMEN: Soft, nontender. No hepatosplenomegaly, normal bowel sounds, no guarding or rigidity. EXTREMITIES: No clubbing, no edema, no cyanosis, 2+ pulses and upper and lower extremities. MUSCULOSKELETAL: Muscle strength and tone normal. SPINE: No scoliosis or deformity SKIN: No rashes CENTRAL NERVOUS SYSTEM: Alert and oriented -3. No focal deficits, tone is normal in all 4 extremities. PSYCHIATRIC: Alert and oriented -3. Appropriate affect. Intact judgment and insight. - Labs CBC & Chem 7: 11/01/18 09:19 11/01/18 09:19 Labs: Abnormal Lab Results - Last 24 Hours (Table) 10/31/18 11/01/18 11/01/18 Range/Units 20:45 07:06 09:19 RBC 3.42 L (4.30-5.90) m/uL Hgb 8.6 L (13.0-17.5) gm/dL Hct 27.8 L (39.0-53.0) % MCHC 30.8 L (31.0-37.0) g/dL RDW 21.3 H (11.5-15.5) % Neutrophils # 8.2 H (1.3-7.7) k/uL Sodium (137-145) mmol/L BUN (9-20) mg/dL Glucose (74-99) mg/dL POC Glucose (mg/dL) 230 H 72 L (75-99) mg/dL Total Protein (6.3-8.2) g/dL Albumin (3.5-5.0) g/dL 11/01/18 11/01/18 11/01/18 Range/Units 09:19 11:49 16:58 RBC (4.30-5.90) m/uL Hgb (13.0-17.5) gm/dL Hct (39.0-53.0) % MCHC (31.0-37.0) g/dL RDW (11.5-15.5) % Neutrophils # (1.3-7.7) k/uL Sodium 133 L (137-145) mmol/L BUN 30 H (9-20) mg/dL Glucose 132 H (74-99) mg/dL POC Glucose (mg/dL) 152 H 381 H (75-99) mg/dL Total Protein 5.5 L (6.3-8.2) g/dL Albumin 3.1 L (3.5-5.0) g/dL Assessment and Plan Plan: Assessment: #1. Acute purulent tracheobronchitis, chest x-ray showed interstitial changes, basilar pneumonia is difficult to exclude, community acquired pneumonia #2. History of interstitial lung disease/pulmonary fibrosis with history of chronic hypoxemic respiratory failure #3. Former history of smoking #4. History of coronary artery disease #5. History of chronic congestive heart failure, unspecified #6. CVA/TIA #7. Diabetes mellitus type 2 with diabetic neuropathy #8. Hypertension, hyperlipidemia #9. History of myocardial infarction #10. Obstructive sleep apnea on CPAP therapy #11. Chronic back pain #12. History of chronic liver disease, and esophageal varices #13. Seizure disorder #14. 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 History of myasthenia gravis, on M[place]on Plan: Continue with current antibiotic coverage, oral prednisone, nebulized bronchodilators, Mucinex, hemodynamically patient is stable, no fever or chills, cultures have been reviewed. We'll add a flutter valve, from pulmonary perspective patient is improving, follow on as needed basis. I performed a history & physical examination of the patient and discussed their management with my nurse practitioner, Livier Barnard. I reviewed the nurse jannie poe's note and agree with the documented findings and plan of care. Lung sounds are positive for diffuse wheezes and rhonchi throughout the lung avalos. The findings and the impression was discussed with the patient. I attest to the documentation by the nurse practitioner. Time with Patient: Less than 30
--- NOTE | 2018-11-01 18:40 | US ---
EXAMINATION TYPE: US venous doppler duplex LE BI DATE OF EXAM: 11/01/2018 6:15 PM COMPARISON: NONE CLINICAL HISTORY: leg edema and pain. Pain and edema. SIDE PERFORMED: Bilateral TECHNIQUE: The lower extremity deep venous system is examined utilizing real time linear array sonog javier with graded compression, doppler sonography and color-flow sonography. VESSELS IMAGED: External Iliac Vein (EIV) Common Femoral Vein Deep Femoral Vein Greater Saphenous Vein * Femoral Vein Popliteal Vein Small Saphenous Vein * Proximal Calf Veins (* superficial vessels) Right Leg: Negative for DVT Left Leg: Negative for DVT No evidence of DVT bilateral legs. Patient unable to tolerate compression at right distal femoral vei n. IMPRESSION: No evidence of deep venous thrombosis in both legs.
[2018-11-01 20:15] LABS: Glucose,Whole Blood 273 mg/dL (75-99)
[2018-11-01] MEDS: SPIRONOLACTONE 25 MG TAB PO SCH (20:43)
[2018-11-01] MEDS ORDERED: INSULIN DETEMIR (LEVEMIR) 100 UNIT/ML SYR SQ SCH (21:00)
[2018-11-02] MEDS: PYRIDOSTIGMINE 60 MG TAB PO SCH ×5 (05:24→20:21)
[2018-11-02] MEDS: BENZOCAINE/MENTHOL LOZENG 1 EACH LOZENGE MUCOUS MEM PRN ×2 (05:26→20:20)
[2018-11-02 06:53] LABS: Glucose,Whole Blood 70 mg/dL (75-99)
[2018-11-02] MEDS: IPRATROPIUM-ALBUTEROL 3 ML NEB INHALATION SCH ×4 (07:57→19:09)
[2018-11-02 08:47] LABS: Anisocytosis Moderate; Basophils % (A) 0 %; Eosinophils % (A) 0 %; HCT 27.6 % (39.0-53.0); HGB 8.4 gm/dL (13.0-17.5); Hypochromasia Marked; Lymphocytes # (A) 0.9 k/uL (1.0-4.8); Lymphocytes % (A) 10 %; MCH 25.2 pg (25.0-35.0); MCHC 30.5 g/dL (31.0-37.0); MCV 82.7 fL (80.0-100.0); Microcytosis Slight; Monocytes # (A) 0.5 k/uL (0-1.0); Monocytes % (A) 5 %; Neutrophils # (A) 7.6 k/uL (1.3-7.7); Neutrophils % (A) 84 %; Platelet Count 179 k/uL (150-450); RBC 3.34 m/uL (4.30-5.90); WBC 9.1 k/uL (3.8-10.6)
[2018-11-02 08:59] LABS: Albumin 3.1 g/dL (3.5-5.0); Calcium 9.5 mg/dL (8.4-10.2); Magnesium 1.6 mg/dL (1.6-2.3); Potassium 4.2 mmol/L (3.5-5.1); Total Bilirubin 0.5 mg/dL (0.2-1.3); Total Protein 5.4 g/dL (6.3-8.2)
[2018-11-02] MEDS: INSULIN ASPART (NovoLOG) 100 UNIT/ML VIAL SQ SCH ×6 (09:09→20:21)
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
[2018-11-02] MEDS: guaiFENesin 600 MG TABLET.ER PO SCH ×2 (09:21→20:21)
[2018-11-02] MEDS: predniSONE 20 MG TAB PO SCH (09:21)
[2018-11-02] MEDS: FINASTERIDE 5 MG TAB PO SCH (09:21)
[2018-11-02] MEDS: MAGNESIUM OXIDE 400 MG TAB PO SCH ×2 (09:21→20:20)
[2018-11-02] MEDS: ASCORBIC ACID 500 MG TAB PO SCH (09:21)
[2018-11-02] MEDS: FERROUS SULFATE 325 MG TAB PO SCH ×2 (09:22→20:21)
[2018-11-02] MEDS: SPIRONOLACTONE 25 MG TAB PO SCH ×2 (09:22→20:20)
[2018-11-02] MEDS: ASPIRIN 325 MG TAB PO SCH (09:22)
[2018-11-02] MEDS: SENNOSIDES 8.6 MG TAB PO SCH (09:22)
[2018-11-02] MEDS: PANTOPRAZOLE 40 MG TABLET PO SCH (09:22)
[2018-11-02] MEDS: FUROSEMIDE 40 MG TAB PO SCH (09:22)
[2018-11-02] MEDS: FAMOTIDINE 20 MG TAB PO SCH ×2 (09:22→20:21)
[2018-11-02] MEDS: LOSARTAN 50 MG TAB PO SCH (09:22)
[2018-11-02] MEDS: ISOSORBIDE MONONITRATE ER 30 MG TAB.ER.24H PO SCH (09:22)
[2018-11-02] MEDS: CHOLECALCIFEROL 1,000 UNIT TAB PO SCH (09:22)
[2018-11-02] MEDS: CYANOCOBALAMIN 500 MCG TAB PO SCH (09:23)
[2018-11-02] MEDS: BENZONATATE 100 MG CAP PO SCH ×3 (09:23→20:20)
[2018-11-02] MEDS: CALCIUM CARB-VIT D 500MG-200UN 1 EACH TAB PO SCH ×2 (09:23→20:21)
[2018-11-02] MEDS: lamoTRIgine 100 MG TAB PO SCH ×2 (09:23→20:20)
[2018-11-02] MEDS: ENOXAPARIN 40 MG/0.4 ML SYRINGE SQ SCH (09:25)
[2018-11-02] MEDS: LAMIVUDINE 300 MG PO SCH (09:26)
[2018-11-02] MEDS: ARTIFICIAL TEARS-HYPROMELLOSE DROPS 15 ML BTL BOTH EYES SCH ×3 (09:29→20:22)
--- NOTE | 2018-11-02 11:41 | P.PN ---
Subjective Progress Note Date: 11/02/18 This is a 73-year-old male with a known past medical history of myasthenia gravis, interstitial lung disease, CVA, diabetes mellitus, liver cirrhosis, stomach ulcers, myocardial infarction, hypothyroidism, obstructive sleep apnea and memory impairment. Patient presents to the ER with complaints of shortness of breath and productive cough. He is coughing up thick yellowish to green sputum for about a week. Patient did have a low-grade temp of 99.5. Patient also reports worsening shortness of breath. EKG had shown sinus tachycardia with a heart rate of 103 chest x-ray report suspected interstitial lung disease difficult to exclude pneumonia. WBC elevated at 14.8. Hemoglobin 9.9 sodium 132 potassium is 5.7 BUN 22 creatinine 1.17 blood sugar 229 lactic acid 2.4 magnesium is 1.3 influenza screen negative. Patient started on Levaquin for possible pneumonia. Patient also complaining of diarrhea. He had 3 watery stools yesterday with lower abdominal discomfort. Check stool for C. diff. aniceto may reports having fevers chills and sweats. Also reporting nausea. Also worsening heartburn symptoms. Troponin was negative. Denies any burning with urination. Pulmonary services on consult. 10/26/2018 patient is complaining of productive cough. Sputum culture pending. Still having elevated lactic acid of 3.8. Did receive a fluid bolus yesterday for the elevated lactic acid. Chest x-ray did show some improved aeration. He currently remains on Levaquin and has been placed on prednisone by pulmonary service. Patient's white count has normalized from 14.8-10.5. Did have elevated blood sugar earlier this morning likely steroid related. Potassium is 5.4 magnesium is 1.5 and iron level is less than 2. Per nursing staff stools are formed and unable to collect stool for C. diff. patient reports that his chronic pain is better On 10/27/2018 patient was seen and examined on the medical floor medication and lab results were reviewed, he is alert and oriented 3 in no apparent distress he is still complaining of cough and shortness of breath otherwise he denies any complaints there is no fever or chills no headache or dizziness no chest pain no nausea or vomiting no abdominal pain no diarrhea no burning with urination no frequency or urgency and no hematuria. On 10/28/2018 patient was seen and examined on the medical floor, he is alert and oriented 3 in no apparent distress he is still complaining of severe cough and shortness of breath otherwise he denies any complaints there is no fever or chills no headache or dizziness no chest pain no nausea or vomiting no abdominal pain no diarrhea no burning with urination no frequency or urgency and no hematuria. 10/29/2018 patient reporting today still having a cough. He's had some improvement in his breathing. Also complaining of rectal bleeding. Was seen by surgical service. They've added Anusol for hemorrhoids. The patient is refusing any endoscopy. Hemoglobin is stable at 9.5. He did receive a dose of IV iron during this admission. Patient denies any chest pain. Denies any nausea or vomiting. Denies any burning with urination. 10/30/2018 patient still reporting cough and not feeling well. Patient still coughing up yellowish to clear sputum. Shortness of breath with activity. Still requiring oxygen. At home he reports that he is just the oxygen as needed. Denies any chest pain. Denies any nausea or vomiting. Did report a bowel movement with some blood earlier today. I cannot tolerate the Anusol suppositories. He is currently using hemorrhoid cream. Patient also requesting that his vitamin B12 and vitamin C be restarted On 10/31/2018 patient is still reporting cough not feeling well. Patient is alert and oriented 3. Patient reports that he doesn't feel quite ready to go h ome. remains on Levaquin and prednisone. Hemoglobin 8.4. Surgical services are following for hemorrhoids. At this time patient denies chest pain. Patient is still having some shortness of breath. Patient denies nausea vomiting or diarrhea. Patient denies any urinary burning or frequency. 11/01/2018 patient stating that he does not feel ready for discharge. Still having productive cough some shortness of breath. Blood sugar was 77. Insulin has been adjusted. Patient requesting a B12 level be checked due to his low energy level. Patient now refusing to walk due to his right leg injury. He reports that he was supposed to see Dr. Houston in the outpatient setting and had missed the appointment due to his hospitalization. Dr. Houston will be consulted. Patient is complaining of bilateral lower leg pain. Venous Dopplers will be ordered. Also note patient is still reporting some blood spotting in his stool. 11/02/2018 patient still complaining of productive cough with yellowish phlegm. Still having some spotting of blood in his bowel movements. He was seen by orthopedics regarding his right leg fracture. The recommending that he follows up with Dr. Houston in 3-4 weeks. Venous Doppler was negative for DVT bilaterally. Orthostatic did repeat x-rays a ankle x-ray on the right shows a distal fibular fracture and soft tissue swelling which is normal for the patient. The recommending the patient continues using his walking boot. Hemoglobin 8.4. Patient did have hypoglycemia this morning with a blood sugar in the 70s. He denies any chest pain or nausea or vomiting. Reports that he is not ready for discharge. Pulmonary has signed Objective - Vital Signs Vital signs: Vital Signs Temp 98.1 F 11/02/18 07:12 Pulse 83 11/02/18 08:55 Resp 16 11/02/18 00:54 BP 118/55 11/02/18 07:12 Pulse Ox 97 11/02/18 07:12 Intake & Output 11/01/18 11/02/18 11/02/18 18:59 06:59 18:59 Intake Total 1020 1560 Balance 1020 1560 Weight 115.5 kg Intake: Oral 1020 1560 Other: # Voids 2 # Bowel Movements 1 - Exam Head normocephalic Neck supple Lungs coarse breath sounds with mild wheezing Heart regular rate and rhythm S1-S2, no rub or gallop Abdomen is soft nontender nondistended positive bowel sounds no hepatosplenomegaly Extremities chronic stasis changes bilateral lower extremities. Bilateral lower extremity edema. Neuro alert and orientated to 3 - Labs CBC & Chem 7: 11/02/18 08:04 11/02/18 08:04 Labs: Abnormal Lab Results - Last 24 Hours (Table) 11/01/18 11/01/18 11/01/18 Range/Units 11:49 16:58 20:14 RBC (4.30-5.90) m/uL Hgb (13.0-17.5) gm/dL Hct (39.0-53.0) % MCHC (31.0-37.0) g/dL RDW (11.5-15.5) % Lymphocytes # (1.0-4.8) k/uL Sodium (137-145) mmol/L BUN (9-20) mg/dL POC Glucose (mg/dL) 152 H 381 H 273 H (75-99) mg/dL Total Protein (6.3-8.2) g/dL Albumin (3.5-5.0) g/dL 11/02/18 11/02/18 11/02/18 Range/Units 06:52 08:04 08:04 RBC 3.34 L (4.30-5.90) m/uL Hgb 8.4 L (13.0-17.5) gm/dL Hct 27.6 L (39.0-53.0) % MCHC 30.5 L (31.0-37.0) g/dL RDW 22.0 H (11.5-15.5) % Lymphocytes # 0.9 L (1.0-4.8) k/uL Sodium 134 L (137-145) mmol/L BUN 31 H (9-20) mg/dL POC Glucose (mg/dL) 70 L (75-99) mg/dL Total Protein 5.4 L (6.3-8.2) g/dL Albumin 3.1 L (3.5-5.0) g/dL Assessment and Plan Assessment: 1. Community-acquired pneumonia with cough and shortness of breath: Chest x-ray shows suspected interstitial lung disease. Difficult to exclude pneumonia. Patient did have a temp of 99.5 white count 14.8 and his been started on Levaquin in the ER. Influenza screen negative. Continue nebulizer treatments. Sputum culture normal respiratory brian. continue Levaquin. Infectious diseas e following. Pulmonary has signed off 2. Sepsis present on admission likely due to pneumonia patient does have elevated white count, tachycardic, lactic acid elevated at 2.4. Lactic acid remains elevated at 3.8. . Blood culture negative 3. Chronic hypoxemic respiratory failure home O2 dependent. With known history of interstitial lung disease and pulmonary fibrosis 4. Iron deficiency anemia: Iron levels low less than 2. Patient did receive a dose of IV iron. Continue oral iron 5. Hyperkalemia : Potassium level improved. Resume patient's Aldactone 6. Hyponatremia sodium 132. Continue with IV fluid hydration 7. Mild dehydration BUN elevated at 22. Improved 9. Mild Left leg cellulitis: Resolved with antibiotics 10. Right distal fibular fracture: Followed by orthopedics. Patient's follow- up with Dr. Houston in 3-4 weeks. Continue with walking boot. 11. History of myasthenia gravis 12. History of interstitial lung disease 13. History of nonalcoholic liver cirrhosis And esophageal varices 14. Diabetes mellitus type 2: Patient is having fluctuating blood sugars. And episodes of hypoglycemia. discontinue the novolog 3 units with each meal 15. Chronic pain syndrome continue with morphine pump 16. History of obstructive sleep apnea 17. Hypomagnesemia: Magnesium level I.7 continue with his oral magnesium. 18. Rectal bleeding likely related to hemorrhoids. Patient seen by surgical service. Has ALLERGY to Anusol suppositories. Continue with topical hemorrhoid cream. Patient has refused any endoscopy at this time 19. Moderate protein calorie malnutrition add Glucerna shakes. This should help also with patient's lower extremity edema. 20. Bilateral lower extremity edema. Venous Dopplers were negative for DVTs bilaterally. Aldactone was restarted yesterday. Again we'll be adding Glucerna shakes. And continue to keep legs elevated. GI prophylaxis Pepcid and DVT prophylaxis Lovenox I performed an examination of the patient and discussed their management with the physician Medical Record Assistant. I have reviewed the Physician Medical Record Assistant's notes and agree with the documented findings and plan of care
[2018-11-02 11:44] LABS: Glucose,Whole Blood 127 mg/dL (75-99)
[2018-11-02] MEDS: MORPHINE PAIN PUMP INTRATHECA SCH (11:50)
[2018-11-02] MEDS: LEVOFLOXACIN 500 MG TAB PO SCH (12:13)
[2018-11-02] MEDS: PROMETHAZ-COD 6.25-10 MG/5 ML 5 ML CUP PO PRN (12:21)
--- NOTE | 2018-11-02 14:38 | PN ---
PROGRESS NOTE DATE OF SERVICE: 11/02/2018 REASON FOR FOLLOWUP: Pneumonia. INTERVAL HISTORY: The patient is currently afebrile, has been breathing comfortably. Patient denies having any chest pain. He did have some cough with some sputum production. No hemoptysis. No nausea, vomiting and no diarrhea. PHYSICAL EXAMINATION: Blood pressure 118/55 with a pulse of 80, temperature 98.1, he is 97% on 2 L nasal cannula. General description is an elderly male, up in the chair in no distress. RESPIRATORY SYSTEM: Unlabored breathing, coarse breath sounds bilaterally. HEART: S1, S2. Regular rate and rhythm. ABDOMEN: Soft, no tenderness. LABS: Hemoglobin 8.4, white count 9.1, BUN of 31, creatinine 1.02. Sputum has been negative. Blood culture negative. DIAGNOSTIC IMPRESSION AND PLAN: Patient admitted to the hospital with chronic obstructive pulmonary disease exacerbation with underlying pneumonia. Patient is currently covered with Levaquin to finish a total 10-week course of therapy because of his underlying COPD and structural lung disease. Continue supportive care. MMODL / IJN: [id number] /
[2018-11-02 17:13] LABS: Glucose,Whole Blood 248 mg/dL (75-99)
[2018-11-02 20:15] LABS: Glucose,Whole Blood 284 mg/dL (75-99)
[2018-11-02] MEDS ORDERED: INSULIN DETEMIR (LEVEMIR) 100 UNIT/ML SYR SQ SCH (21:00)
[2018-11-03] MEDS: BENZOCAINE 20% HEMORRHOIDAL OINT 28GM RECTAL PRN
[2018-11-03] MEDS: PYRIDOSTIGMINE 60 MG TAB PO SCH ×4 (00:02→12:49)
[2018-11-03] MEDS: BENZOCAINE/MENTHOL LOZENG 1 EACH LOZENGE MUCOUS MEM PRN ×2 (04:48→13:33)
[2018-11-03 05:51] LABS: Glucose,Whole Blood 77 mg/dL (75-99)
[2018-11-03 07:13] LABS: Glucose,Whole Blood 88 mg/dL (75-99)
[2018-11-03] MEDS: IPRATROPIUM-ALBUTEROL 3 ML NEB INHALATION SCH ×2 (08:12→11:45)
[2018-11-03 08:38] VITALS: BP 147/66; RESP 16; TEMP 97.9
--- NOTE | 2018-11-03 08:51 | XR ---
EXAMINATION TYPE: XR chest 2V DATE OF EXAM: 11/03/2018 HISTORY: pneumonia. REFERENCE: Previous study dated 10/29/2018. FINDINGS: There continues to be some left lower lobe airspace disease. This has improved. The right l katina is clear. Pleural spaces are clear. The heart is not enlarged. IMPRESSION: IMPROVING LEFT LOWER LOBE INFILTRATE.
[2018-11-03] MEDS: INSULIN ASPART (NovoLOG) 100 UNIT/ML VIAL SQ SCH ×4 (09:34→12:49)
[2018-11-03] MEDS: BENZONATATE 100 MG CAP PO SCH (09:35)
[2018-11-03] MEDS: FERROUS SULFATE 325 MG TAB PO SCH (09:35)
[2018-11-03] MEDS: CHOLECALCIFEROL 1,000 UNIT TAB PO SCH (09:35)
[2018-11-03] MEDS: PANTOPRAZOLE 40 MG TABLET PO SCH (09:35)
[2018-11-03] MEDS: ASPIRIN 325 MG TAB PO SCH (09:36)
[2018-11-03] MEDS: SENNOSIDES 8.6 MG TAB PO SCH (09:36)
[2018-11-03] MEDS: SPIRONOLACTONE 25 MG TAB PO SCH (09:36)
[2018-11-03] MEDS: ASCORBIC ACID 500 MG TAB PO SCH (09:36)
[2018-11-03] MEDS: CYANOCOBALAMIN 500 MCG TAB PO SCH (09:36)
[2018-11-03] MEDS: CALCIUM CARB-VIT D 500MG-200UN 1 EACH TAB PO SCH (09:36)
[2018-11-03] MEDS: MAGNESIUM OXIDE 400 MG TAB PO SCH (09:37)
[2018-11-03] MEDS: LAMIVUDINE 300 MG PO SCH (09:37)
[2018-11-03] MEDS: ISOSORBIDE MONONITRATE ER 30 MG TAB.ER.24H PO SCH (09:37)
[2018-11-03] MEDS: FUROSEMIDE 40 MG TAB PO SCH (09:37)
[2018-11-03] MEDS: FINASTERIDE 5 MG TAB PO SCH (09:37)
[2018-11-03] MEDS: FAMOTIDINE 20 MG TAB PO SCH (09:37)
[2018-11-03] MEDS: guaiFENesin 600 MG TABLET.ER PO SCH (09:38)
[2018-11-03] MEDS: LOSARTAN 50 MG TAB PO SCH (09:38)
[2018-11-03] MEDS: predniSONE 20 MG TAB PO SCH (09:38)
[2018-11-03] MEDS: lamoTRIgine 100 MG TAB PO SCH (09:38)
[2018-11-03] MEDS: ARTIFICIAL TEARS-HYPROMELLOSE DROPS 15 ML BTL BOTH EYES SCH (09:44)
[2018-11-03] MEDS: ENOXAPARIN 40 MG/0.4 ML SYRINGE SQ SCH (09:45)
[2018-11-03 11:48] VITALS: PULSE 84
[2018-11-03 11:54] LABS: Glucose,Whole Blood 122 mg/dL (75-99)
--- NOTE | 2018-11-03 12:38 | P.DS ---
Providers Date of admission: 10/25/18 12:18 Expected date of discharge: 11/03/18 Attending physician: Josr Osorio Consults: 10/25/18 14:46 Consult Physician Routine Consulting Provider: David Zarco Consult Reason/Comments: possible pneumonia Do you want consulting provider notified?: Yes 10/26/18 10:40 Consult Physician Routine Consulting Provider: Emma Ron Consult Reason/Comments: lactic acid 3.8 Do you want consulting provider notified?: Yes 10/28/18 21:57 Consult Physician Routine Consulting Provider: Natanael Garrido Consult Reason/Comments: rectal bleeding, possibly from hemorrhoids Do you want consulting provider notified?: Yes, Notify in am 11/01/18 12:54 Consult Physician Routine Consulting Provider: Scotty Houston Consult Reason/Comments: knows patient and old right leg fracture Do you want consulting provider notified?: Yes Primary care physician: [facility] Course: Diagnosis on discharge: 1. Community-acquired pneumonia with cough and shortness of breath: Chest x-ray shows suspected interstitial lung disease. Difficult to exclude pneumonia. Patient did have a temp of 99.5 white count 14.8 and his been started on Levaquin in the ER. Influenza screen negative. Continue nebulizer treatments. Sputum culture normal respiratory brian. continue Levaquin. Infectious disease following. Pulmonary has signed off 2. Sepsis present on admission likely due to pneumonia patient does have elevated white count, tachycardic, lactic acid elevated at 2.4. Lactic acid remains elevated at 3.8. . Blood culture negative 3. Chronic hypoxemic respiratory failure home O2 dependent. With known history of interstitial lung disease and pulmonary fibrosis 4. Iron deficiency anemia: Iron levels low less than 2. Patient did receive a dose of IV iron. Continue oral iron 5. Hyperkalemia : Potassium level improved. Resume patient's Aldactone 6. Hyponatremia sodium 132. Continue with IV fluid hydration 7. Mild dehydration BUN elevated at 22. Improved 9. Mild Left leg cellulitis: Resolved with antibiotics 10. Right distal fibular fracture: Followed by orthopedics. Patient's follow- up with Dr. Houston in 3-4 weeks. Continue with walking boot. 11. History of myasthenia gravis 12. History of interstitial lung disease 13. History of nonalcoholic liver cirrhosis And esophageal varices 14. Diabetes mellitus type 2: Patient is having fluctuating blood sugars. And episodes of hypoglycemia. discontinue the novolog 3 units with each meal 15. Chronic pain syndrome continue with morphine pump 16. History of obstructive sleep apnea 17. Hypomagnesemia: Magnesium level I.7 continue with his oral magnesium. 18. Rectal bleeding likely related to hemorrhoids. Patient seen by surgical service. Has ALLERGY to Anusol suppositories. Continue with topical hemorrhoid cream. Patient has refused any endoscopy at this time 19. Moderate protein calorie malnutrition add Glucerna shakes. This should help also with patient's lower extremity edema. 20. Bilateral lower extremity edema. Venous Dopplers were negative for DVTs bilaterally. Aldactone was restarted yesterday. Again we'll be adding Glucerna shakes. And continue to keep legs elevated. Hospital course: This is a 73-year-old male with a known past medical history of myasthenia gravis, interstitial lung disease, CVA, diabetes mellitus, liver cirrhosis, stomach ulcers, myocardial infarction, hypothyroidism, obstructive sleep apnea and memory impairment. Patient presents to the ER with complaints of shortness of breath and productive cough. He is coughing up thick yellowish to green sputum for about a week. Patient did have a low-grade temp of 99.5. Patient also reports worsening shortness of breath. EKG had shown sinus tachycardia with a heart rate of 103 chest x-ray report suspected interstitial lung disease difficult to exclude pneumonia. WBC elevated at 14.8. Hemoglobin 9.9 sodium 132 potassium is 5.7 BUN 22 creatinine 1.17 blood sugar 229 lactic acid 2.4 magnesium is 1.3 influenza screen negative. Patient started on Levaquin for possible pneumonia. Patient also complaining of diarrhea. He had 3 watery stools yesterday with lower abdominal discomfort. Check stool for C. diff. patient reports having fevers chills and sweats. Also reporting nausea. Also worsening heartburn symptoms. Troponin was negative. Denies any burning with urination. Pulmonary services on consult. 10/26/2018 patient is complaining of productive cough. Sputum culture pending. Still having elevated lactic acid of 3.8. Did receive a fluid bolus yesterday for the elevated lactic acid. Chest x-ray did show some improved aeration. He currently remains on Levaquin and has been placed on prednisone by pulmonary service. Patient's white count has normalized from 14.8-10.5. Did have elevated blood sugar earlier this morning likely steroid related. Potassium is 5.4 magnesium is 1.5 and iron level is less than 2. Per nursing staff stools are formed and unable to collect stool for C. diff. patient reports that his chronic pain is better On 10/27/2018 patient was seen and examined on the medical floor medication and lab results were reviewed, he is alert and oriented 3 in no apparent distress he is still complaining of cough and shortness of breath otherwise he denies any complaints there is no fever or chills no headache or dizziness no chest pain no nausea or vomiting no abdominal pain no diarrhea no burning with urination no frequency or urgency and no hematuria. On 10/28/2018 patient was seen and examined on the medical floor, he is alert and oriented 3 in no apparent distress he is still complaining of severe cough and shortness of breath otherwise he denies any complaints there is no fever or chills no headache or dizziness no chest pain no nausea or vomiting no abdominal pain no diarrhea no burning with urination no frequency or urgency and no hematuria. 10/29/2018 patient reporting today still having a cough. He's had some improvement in his breathing. Also complaining of rectal bleeding. Was seen by surgical service. They've added Anusol for hemorrhoids. The patient is refusing any endoscopy. Hemoglobin is stable at 9.5. He did receive a dose of IV iron during this admission. Patient denies any chest pain. Denies any nausea or vomiting. Denies any burning with urination. 10/30/2018 patient still reporting cough and not feeling well. Patient still coughing up yellowish to clear sputum. Shortness of breath with activity. Still requiring oxygen. At home he reports that he is just the oxygen as needed. Denies any chest pain. Denies any nausea or vomiting. Did report a bowel movement with some blood earlier today. I cannot tolerate the Anusol suppositories. He is currently using hemorrhoid cream. Patient also requesting that his vitamin B12 and vitamin C be restarted On 10/31/2018 patient is still reporting cough not feeling well. Patient is alert and oriented 3. Patient reports that he doesn't feel quite ready to go home. remains on Levaquin and prednisone. Hemoglobin 8.4. Surgical services are following for hemorrhoids. At this time patient denies chest pain. Patient is still having some shortness of breath. Patient denies nausea vomiting or diarrhea. Patient denies any urinary burning or frequency. 11/01/2018 patient stating that he does not feel ready for discharge. Still having productive cough some shortness of breath. Blood sugar was 77. Insulin has been adjusted. Patient requesting a B12 level be checked due to his low energy level. Patient now refusing to walk due to his right leg injury. He reports that he was supposed to see Dr. Houston in the outpatient setting and had missed the appointment due to his hospitalization. Dr. Houston will be consulted. Patient is complaining of bilateral lower leg pain. Venous Dopplers will be ordered. Also note patient is still reporting some blood spotting in his stool. 11/02/2018 patient still complaining of productive cough with yellowish phlegm. Still having some spotting of blood in his bowel movements. He was seen by orthopedics regarding his right leg fracture. The recommending that he follows up with Dr. Houston in 3-4 weeks. Venous Doppler was negative for DVT bilaterally. Orthostatic did repeat x-rays a ankle x-ray on the right shows a distal fibular fracture and soft tissue swelling which is normal for the patient. The recommending the patient continues using his walking boot. Hemoglobin 8.4. Patient did have hypoglycemia this morning with a blood sugar in the 70s. He denies any chest pain or nausea or vomiting. Reports that he is not ready for discharge. Pulmonary has signed On 11/03/2018 patient was seen and examined on the medical floor he is alert and oriented 3 in no apparent distress he is still complaining of cough and some shortness of breath otherwise no complaints at this time there is no fever or chills no headache or dizziness no chest pain no nausea or vomiting no abdominal pain no burning was urination no frequency or urgency and no hematuria, patient has some diarrhea. He feels ready to go home patient will be discharged home today he was given a prescription for prednisone taper and for Levaquin for 5 more days he will be seen in our office on Monday for further evaluation and treatment Plan - Discharge Summary Discharge Rx Participant: No New Discharge Prescriptions: New Ipratropium-Albuterol Nebulize [Duoneb 0.5 mg-3 mg/3 ml Soln] 3 ml INHALATION RT-QID ampul.neb Ferrous Sulfate [Iron (65 MG Elemental)] 325 mg PO BID tab Levofloxacin [Levaquin] 500 mg PO Q24H tab Diphenoxylate HCl/Atropine [Lomotil 2.5-0.025 mg Tablet] 1 tab PO QID 3 Days #15 tab guaiFENesin [Mucinex] 1,200 mg PO Q12HR tablet.er INSULIN ASPART (NovoLOG) [NovoLOG (formulary)] 3 unit SQ AC-TID vial predniSONE 40 mg PO DAILY tab Cyanocobalamin [Vitamin B-12] 500 mcg PO DAILY@1200 tab Ascorbic Acid [Vitamin C] 500 mg PO DAILY@1200 tab Continue Furosemide [Lasix] 40 mg PO QAM Insulin Glargine [Lantus] 45 unit SQ HS Finasteride [Proscar] 5 mg PO DAILY Nitroglycerin Sl Tabs [Nitrostat] 0.4 mg SUBLINGUAL Q5M PRN #50 tab PRN Reason: Chest Pain Ubidecarenone [Co Q-10] 100 mg PO DAILY Sennosides [Senna] 8.6 mg PO DAILY Ranitidine HCl [Zantac] 150 mg PO BID Pyridostigmine [place] [Mestinon] 60 mg PO Q4H Losartan [Cozaar] 50 mg PO DAILY Calcium Carbonate/Vitamin D3 [Calcium 600-Vit D3 400 Caplet] 2 tab PO BID Isosorbide Mononitrate ER [Imdur] 90 mg PO DAILY Magnesium Oxide [Mag-Ox] 400 mg PO DAILY Pantoprazole Sodium [Protonix] 40 mg PO DAILY lamoTRIgine [LaMICtal] 100 mg PO BID Insulin Aspart [NovoLOG] See Protocol SQ AC-TID Garlic 1 tab PO DAILY Spironolactone 50 mg PO BID Cholecalciferol [Vitamin D3 (25 Mcg = 1000 Iu)] 1,000 unit PO DAILY Albuterol Sulfate [Proair Hfa] 1 - 2 puff INHALATION RT-QID PRN PRN Reason: Shortness Of Breath lamiVUDine [Lamivudine] 300 mg PO DAILY Lidocaine 5% Patch [Lidoderm 5% Patch] 1 patch TRANSDERM DAILY PRN PRN Reason: Pain Docusate [Colace] 100 mg PO DAILY diphenhydrAMINE [Benadryl] 25 mg PO TID PRN PRN Reason: Allergy Symptoms Aspirin 325 mg PO DAILY Artificial Tears-Hypromellose [Artificial Tear Drops] 2 drops BOTH EYES TID Morphine Pain Pump 1 dose INTRATHECA DIRECTED Vitamin B Complex 1 cap PO DAILY Discontinued predniSONE 10 mg PO HS Discharge Medication List Finasteride [Proscar] 5 mg PO DAILY 04/14/15 [History] Furosemide [Lasix] 40 mg PO QAM 04/14/15 [History] Insulin Glargine [Lantus] 45 unit SQ HS 04/14/15 [History] Nitroglycerin Sl Tabs [Nitrostat] 0.4 mg SUBLINGUAL Q5M PRN #50 tab 09/22/16 [Rx] Ubidecarenone [Co Q-10] 100 mg PO DAILY 12/11/16 [History] Calcium Carbonate/Vitamin D3 [Calcium 600-Vit D3 400 Caplet] 2 tab PO BID 04/04/17 [History] Losartan [Cozaar] 50 mg PO DAILY 04/04/17 [History] Pyridostigmine [place] [Mestinon] 60 mg PO Q4H 04/04/17 [History] Ranitidine HCl [Zantac] 150 mg PO BID 04/04/17 [History] Sennosides [Senna] 8.6 mg PO DAILY 04/04/17 [History] Insulin Aspart [NovoLOG] See Protocol SQ AC-TID 08/02/17 [History] Isosorbide Mononitrate ER [Imdur] 90 mg PO DAILY 08/02/17 [History] Magnesium Oxide [Mag-Ox] 400 mg PO DAILY 08/02/17 [History] Pantoprazole Sodium [Protonix] 40 mg PO DAILY 08/02/17 [History] lamoTRIgine [LaMICtal] 100 mg PO BID 08/02/17 [History] Garlic 1 tab PO DAILY 05/09/18 [History] Spironolactone 50 mg PO BID 08/29/18 [History] Albuterol Sulfate [Proair Hfa] 1 - 2 puff INHALATION RT-QID PRN 10/25/18 [History] Artificial Tears-Hypromellose [Artificial Tear Drops] 2 drops BOTH EYES TID 10/25/18 [History] Aspirin 325 mg PO DAILY 10/25/18 [History] Cholecalciferol [Vitamin D3 (25 Mcg = 1000 Iu)] 1,000 unit PO DAILY 10/25/18 [History] Docusate [Colace] 100 mg PO DAILY 10/25/18 [History] Lidocaine 5% Patch [Lidoderm 5% Patch] 1 patch TRANSDERM DAILY PRN 10/25/18 [History] Morphine Pain Pump 1 dose INTRATHECA DIRECTED 10/25/18 [History] Vitamin B Complex 1 cap PO DAILY 10/25/18 [History] diphenhydrAMINE [Benadryl] 25 mg PO TID PRN 10/25/18 [History] lamiVUDine [Lamivudine] 300 mg PO DAILY 10/25/18 [History] Ascorbic Acid [Vitamin C] 500 mg PO DAILY@1200 tab 11/03/18 [Rx] Cyanocobalamin [Vitamin B-12] 500 mcg PO DAILY@1200 tab 11/03/18 [Rx] Diphenoxylate HCl/Atropine [Lomotil 2.5-0.025 mg Tablet] 1 tab PO QID 3 Days #15 tab 11/03/18 [Rx] Ferrous Sulfate [Iron (65 MG Elemental)] 325 mg PO BID tab 11/03/18 [Rx] INSULIN ASPART (NovoLOG) [NovoLOG (formulary)] 3 unit SQ AC-TID vial 11/03/18 [Rx] Ipratropium-Albuterol Nebulize [Duoneb 0.5 mg-3 mg/3 ml Soln] 3 ml INHALATION RT-QID ampul.neb 11/03/18 [Rx] Levofloxacin [Levaquin] 500 mg PO Q24H tab 11/03/18 [Rx] guaiFENesin [Mucinex] 1,200 mg PO Q12HR tablet.er 11/03/18 [Rx] predniSONE 40 mg PO DAILY tab 11/03/18 [Rx] Follow up Appointment(s)/Referral(s): Natanael Garrido MD [Medical Doctor] - 3 Weeks David Zarco DO [Doctor of Osteopathic Medicine] - 11/20/18 1:45 pm Josr Osorio MD [Primary Care Provider] - 1-2 days Patient Instructions/Handouts: Heart Failure (DC), Type 2 Diabetes in Adults: New Diagnosis (DC), COPD (Chronic Obstructive Pulmonary Disease) (DC) Activity/Diet/Wound Care/Special Instructions: [place] [facility] #[phone] Pt has home meds in [email or web address]
[2018-11-03] MEDS ORDERED: DIPHENOX-ATROP 2.5-0.025 MG 1 EACH TAB PO STA (13:12)
[2018-11-03] MEDS: LEVOFLOXACIN 500 MG TAB PO SCH (13:35)
== END 2018-11-03 15:30 | disposition home or self-care (01) | DRG 871 ==
LOC: EC 10:45 → 3NMEDONC 12:18 → 4SSUR 14:20
PROVIDERS: ADMIT Internal Medicine; ATTEND Internal Medicine
DX: A41.9 Sepsis, unspecified organism (principal); J18.9 Pneumonia, unspecified organism; J96.21 Acute and chronic respiratory failure with hypoxia; E44.0 Moderate protein-calorie malnutrition; E87.1 Hypo-osmolality and hyponatremia; J44.0 Chronic obstructive pulmonary disease with (acute) lower respiratory infection; J44.1 Chronic obstructive pulmonary disease with (acute) exacerbation; J96.11 Chronic respiratory failure with hypoxia; L03.116 Cellulitis of left lower limb; I85.00 Esophageal varices without bleeding; E11.40 Type 2 diabetes mellitus with diabetic neuropathy, unspecified; E11.649 Type 2 diabetes mellitus with hypoglycemia without coma; E11.65 Type 2 diabetes mellitus with hyperglycemia; E87.5 Hyperkalemia; G70.00 Myasthenia gravis without (acute) exacerbation; I11.0 Hypertensive heart disease with heart failure; E83.42 Hypomagnesemia; E86.0 Dehydration; G40.909 Epilepsy, unspecified, not intractable, without status epilepticus; D50.9 Iron deficiency anemia, unspecified; E03.9 Hypothyroidism, unspecified; E78.5 Hyperlipidemia, unspecified; F32.9 Major depressive disorder, single episode, unspecified; G47.33 Obstructive sleep apnea (adult) (pediatric); G89.4 Chronic pain syndrome; H91.90 Unspecified hearing loss, unspecified ear; I25.10 Atherosclerotic heart disease of native coronary artery without angina pectoris; I25.2 Old myocardial infarction; I50.9 Heart failure, unspecified; J84.10 Pulmonary fibrosis, unspecified; K21.9 Gastro-esophageal reflux disease without esophagitis; K64.8 Other hemorrhoids; K74.60 Unspecified cirrhosis of liver; T38.0X5A Adverse effect of glucocorticoids and synthetic analogues, initial encounter; R01.1 Cardiac murmur, unspecified; M54.9 Dorsalgia, unspecified; R19.7 Diarrhea, unspecified; J20.9 Acute bronchitis, unspecified; N40.0 Benign prostatic hyperplasia without lower urinary tract symptoms; S82.831D Other fracture of upper and lower end of right fibula, subsequent encounter for closed fracture with routine healing; S82.61XD Displaced fracture of lateral malleolus of right fibula, subsequent encounter for closed fracture with routine healing; Z79.4 Long term (current) use of insulin; Z79.82 Long term (current) use of aspirin; Z79.899 Other long term (current) drug therapy; Z88.1 Allergy status to other antibiotic agents; Z88.8 Allergy status to other drugs, medicaments and biological substances; Z87.11 Personal history of peptic ulcer disease; Z87.440 Personal history of urinary (tract) infections; Z87.891 Personal history of nicotine dependence; Z99.81 Dependence on supplemental oxygen; Z87.01 Personal history of pneumonia (recurrent); Z86.73 Personal history of transient ischemic attack (TIA), and cerebral infarction without residual deficits; Z98.42 Cataract extraction status, left eye; Z98.41 Cataract extraction status, right eye; Z96.1 Presence of intraocular lens; Z80.1 Family history of malignant neoplasm of trachea, bronchus and lung; Z80.8 Family history of malignant neoplasm of other organs or systems; Z83.79 Family history of other diseases of the digestive system
CPT/HCPCS: 36415; 71046; 80053; 81003; 82607; 82728; 83036; 83540; 83550; 83605; 83735; 84132; 84484; 85025; 85027; 85610; 85730; 87040; 87070; 87205; 87502; 93005; 93970; 94640; 94667; 94760; 96365; 96367; 99285

== ENCOUNTER → 2018-12-24 | Outpatient (CLI) | payer MEDICARE, BC ==
--- NOTE | 2018-12-24 12:13 | US ---
EXAMINATION TYPE: US venous doppler duplex LE RT DATE OF EXAM: 12/24/2018 10:31 AM COMPARISON: US 2019 CLINICAL HISTORY: pain right knee M25.561. Right leg pain and swelling x 5 months SIDE PERFORMED: Right TECHNIQUE: The lower extremity deep venous system is examined utilizing real time linear array sonog javier with graded compression, doppler sonography and color-flow sonography. VESSELS IMAGED: External Iliac Vein (EIV) Common Femoral Vein Deep Femoral Vein Greater Saphenous Vein * Femoral Vein Popliteal Vein Small Saphenous Vein * Proximal Calf Veins (* superficial vessels) Grayscale, color doppler, spectral doppler imaging performed of the deep veins of the right lower ext remity. There is normal flow, compressibility, vascular waveforms. Right Leg: Appears negative for DVT IMPRESSION: No sonographic evidence of deep venous thrombosis within the right lower extremity. Resul ts called to [place] at [facility] at end of exam. 11:10am
== END | disposition home or self-care (01) ==
LOC: RADUSWWP 10:28
PROVIDERS: ATTEND Orthopaedic Surgery
DX: M79.662 Pain in left lower leg (principal); M17.11 Unilateral primary osteoarthritis, right knee

== ENCOUNTER → 2019-04-17 | Outpatient (CLI) | payer MEDICARE, BC ==
--- NOTE | 2019-04-17 14:42 | XR ---
EXAMINATION TYPE: XR chest 2V DATE OF EXAM: 04/17/2019 COMPARISON: Prior chest x-ray 11/03/2018 HISTORY: Cough and shortness of breath TECHNIQUE: Frontal and lateral views of the chest are obtained. FINDINGS: Interstitium is increased. Reticular densities are again noted especially at the left lung base. There is persistent elevation of right hemidiaphragm. Aorta is dense and appears ectatic. Patie nt is rotated. There is no focal air space opacity, pleural effusion, or pneumothorax seen. The card iac silhouette size is stable. The osseous structures are intact. IMPRESSION: Findings are similar to prior exam. Findings consistent with interstitial lung disease. Additional findings above.
== END | disposition home or self-care (01) ==
LOC: RADXRMAIN 13:30
PROVIDERS: ATTEND Internal Medicine
DX: J98.4 Other disorders of lung (principal)
CPT/HCPCS: 71046

== ENCOUNTER 2019-05-09 18:28 | Inpatient (IN) | payer MEDICARE, BC ==
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
[2019-05-09 19:28] LABS: Albumin 3.7 g/dL (3.5-5.0); Magnesium 1.3 mg/dL (1.6-2.3); Potassium 4.6 mmol/L (3.5-5.1); Total Bilirubin 0.8 mg/dL (0.2-1.3); Total Protein 6.4 g/dL (6.3-8.2)
--- NOTE | 2019-05-09 19:28 | XR ---
EXAMINATION TYPE: XR chest 2V DATE OF EXAM: 05/09/2019 COMPARISON: 04/17/2019 HISTORY: Difficulty breathing TECHNIQUE: Frontal and lateral views of the chest are obtained. FINDINGS: There is general coarsening interstitial infiltrate throughout the lungs. Heart size is no rmal. There is no pleural effusion. There are chest leads. IMPRESSION: Moderate pulmonary interstitial fibrosis unchanged. Normal heart.
[2019-05-09 19:43] LABS: Partial Thromboplastin Time 25.4 sec (22.0-30.0)
[2019-05-09 19:54] LABS: Anisocytosis Slight; Basophils % (A) 0 %; Eosinophils % (A) 1 %; HCT 29.3 % (39.0-53.0); HGB 8.8 gm/dL (13.0-17.5); Hypochromasia Marked; Lymphocytes # (A) 0.9 k/uL (1.0-4.8); Lymphocytes % (A) 13 %; MCH 23.2 pg (25.0-35.0); MCHC 29.9 g/dL (31.0-37.0); MCV 77.8 fL (80.0-100.0); Mean Platelet Volume 7.5; Microcytosis Slight; Monocytes # (A) 0.5 k/uL (0-1.0); Monocytes % (A) 7 %; Neutrophils # (A) 5.2 k/uL (1.3-7.7); Neutrophils % (A) 76 %; Platelet Count 114 k/uL (150-450); RBC 3.77 m/uL (4.30-5.90); WBC 6.9 k/uL (3.8-10.6)
[2019-05-09] MEDS ORDERED: SODIUM CHLORIDE 0.9% 1,000 ML IV ONE (20:28)
[2019-05-09] MEDS: MAGNESIUM SULFATE-D5W PMX 1 GM in DEXTROSE/WATER 1 100ML.BAG IVPB SCH ×2 (20:51→22:13)
[2019-05-09 21:38] LABS: Glucose,Whole Blood 197 mg/dL (75-99)
[2019-05-09] MEDS ORDERED: NITROGLYCERIN SL TABS 0.4 MG TAB SUBLINGUAL PRN (23:45)
[2019-05-10] MEDS ORDERED: IPRATROPIUM-ALBUTEROL 3 ML NEB INHALATION PRN (00:03)
[2019-05-10] MEDS: PYRIDOSTIGMINE 60 MG TAB PO SCH ×7 (00:30→23:25)
[2019-05-10] MEDS: INSULIN DETEMIR (LEVEMIR) 100 UNIT/ML SYR SQ SCH ×2 (00:30→20:10)
[2019-05-10] MEDS: ACETAMINOPHEN TAB 500 MG TAB PO PRN ×2 (00:32→20:09)
[2019-05-10 06:59] LABS: Glucose,Whole Blood 149 mg/dL (75-99)
[2019-05-10] MEDS: ALBUTEROL NEBULIZED 2.5 MG/3 ML INHALATION PRN (07:18)
[2019-05-10] MEDS: CYANOCOBALAMIN 500 MCG TAB PO SCH (07:26)
[2019-05-10] MEDS: CHOLECALCIFEROL 1,000 UNIT TAB PO SCH (07:26)
[2019-05-10] MEDS: FAMOTIDINE 20 MG TAB PO SCH ×2 (07:26→20:09)
[2019-05-10] MEDS: SPIRONOLACTONE 25 MG TAB PO SCH (07:26)
[2019-05-10] MEDS: ISOSORBIDE MONONITRATE ER 30 MG TAB.ER.24H PO SCH (07:26)
[2019-05-10] MEDS: LOSARTAN 50 MG TAB PO SCH (07:26)
[2019-05-10] MEDS: PANTOPRAZOLE 40 MG TABLET PO SCH (07:26)
[2019-05-10] MEDS: MULTIVITAMINS, THERA 1 EACH TAB PO SCH (07:27)
[2019-05-10] MEDS: FINASTERIDE 5 MG TAB PO SCH (07:27)
[2019-05-10] MEDS: MAGNESIUM OXIDE 400 MG TAB PO SCH (07:27)
[2019-05-10] MEDS: FUROSEMIDE 40 MG TAB PO SCH ×2 (07:27→20:09)
[2019-05-10] MEDS: INSULIN ASPART (NovoLOG) 100 UNIT/ML VIAL SQ SCH ×6 (07:27→17:37)
[2019-05-10] MEDS: lamoTRIgine 100 MG TAB PO SCH ×2 (07:27→20:10)
[2019-05-10] MEDS: Lamivudine [Lamivudine] 300 MG PO SCH (07:34)
[2019-05-10] MEDS ORDERED: VITAMIN E 1000 UNIT PO SCH (09:00)
[2019-05-10] MEDS ORDERED: predniSONE 10 MG TAB PO SCH (09:00)
[2019-05-10 10:04] LABS: Anisocytosis Slight; Basophils % (A) 0 %; Eosinophils % (A) 1 %; HCT 26.6 % (39.0-53.0); HGB 7.7 gm/dL (13.0-17.5); Hypochromasia Marked; Lymphocytes # (A) 0.6 k/uL (1.0-4.8); Lymphocytes % (A) 12 %; MCH 22.8 pg (25.0-35.0); MCV 78.7 fL (80.0-100.0); Mean Platelet Volume 7.3; Microcytosis Slight; Monocytes # (A) 0.4 k/uL (0-1.0); Monocytes % (A) 8 %; Neutrophils # (A) 3.6 k/uL (1.3-7.7); Neutrophils % (A) 76 %; RBC 3.38 m/uL (4.30-5.90); RDW 16.5 % (11.5-15.5); WBC 4.8 k/uL (3.8-10.6)
[2019-05-10 10:11] LABS: ALT 21 U/L (21-72); AST 28 U/L (17-59); African American GFR (CKD) >90 (>60 ml/min/1.73 sqM); Albumin 3.1 g/dL (3.5-5.0); Alkaline Phosphatase 67 U/L (38-126); Anion Gap 5 mmol/L; Blood Urea Nitrogen 21 mg/dL (9-20); Calcium 8.6 mg/dL (8.4-10.2); Carbon Dioxide 30 mmol/L (22-30); Chloride 99 mmol/L (98-107); Glucose 165 mg/dL (74-99); Non-African American GFR(CKD) 80 (>60 ml/min/1.73 sqM); Potassium 3.8 mmol/L (3.5-5.1); Sodium 134 mmol/L (137-145); Total Bilirubin 0.7 mg/dL (0.2-1.3); Total Protein 5.5 g/dL (6.3-8.2)
[2019-05-10 11:00] LABS: Platelet Count 93 k/uL (150-450)
[2019-05-10 11:07] LABS: Hypersegmented Neutrophils Present; Poikilocytosis (M) Present
[2019-05-10 11:08] LABS: Toxic Granulation Present
[2019-05-10 11:25] LABS: Glucose,Whole Blood 194 mg/dL (75-99)
[2019-05-10] MEDS: SODIUM CHLORIDE 0.9% 1,000 ML IV SCH (11:48)
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
[2019-05-10] MEDS: LEVOFLOXACIN 500MG-D5W PMX 500 MG in DEXTROSE/WATER 1 100ML.BAG IVPB SCH (11:57)
[2019-05-10] MEDS: guaiFENesin 600 MG TABLET.ER PO PRN (14:30)
--- NOTE | 2019-05-10 14:56 | P.CNPUL ---
History of Present Illness Consult date: 05/10/19 Reason for consult: dyspnea, pulmonary fibrosis History of present illness: 73-year-old male patient with pulmonary fibrosis and chronic hypoxic respiratory failure was not wearing oxygen on and off at home at 2 L per minute nasal cannula. He also has multiple medical problems and comorbidities including history of myasthenia gravis. The patient was last seen by our services back in October 2018 for shortness of breath and cough and sputum production and that time he was diagnosed having an acute stroke a bronchitis/pneumonia. He was treated and he was discharged home. He comes in with similar complaints of worsening shortness of breath a few weeks duration. His lungs are quite congested this point in time. He is still wearing oxygen 2 L per minute nasal cannula. He did express some chills at home. No documented fever. No nausea or vomiting. He felt weak. His chronic increased edema lower extremities bilaterally. He is a nonsmoker for now. 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 He has had also multiple other comorbidities including obstructive sleep apnea. He has a preserved LV function with an ejection fraction of 50-55% and the patient has normal coronaries. Diabetes mellitus and hypertension and hyperlipidemia among his chronic medical problems and comorbidities. He has been diagnosed having obstructive sleep apnea, yet he has not used his CPAP treatment for many years. His chest x-ray showing chronic ILD. Superimposed pneumonia is hard to exclude. Currently the patient is on Levaquin. He is also on a 10 mg of prednisone which she has been taking for many years. He is ALLERGIC to systemic steroids in the form of IV or IM steroid injections. Review of Systems Constitutional: Denies chills, Denies fever, the patient endorses some chills at the level recommended fever. No weight loss. Eyes: denies blurred vision, denies pain, the patient's photophobia and the pa tient is wearing glasses. Ears, nose, mouth and throat: Denies headache, Denies sore throat, the patient has impaired hearing Cardiovascular: Denies chest pain, Denies shortness of breath Respiratory: Reports congestion, Reports cough with sputum, Reports dyspnea, Reports home oxygen, Reports respiratory infections, Reports wheezing, Denies cough Gastrointestinal: Denies abdominal pain, Denies diarrhea, Denies nausea, Denies vomiting, the patient has chronic liver disease and cirrhosis, drug induced and the patient has been diagnosed having gastric ulcers and small gastric status with serial bases. Musculoskeletal: Denies myalgias, the patient is chronic muscle weakness rates to myasthenia gravis, the patient also has chronic back pain and he has a pain pump inserted. Cervical pain and the patient has had heel and fracture of the L hip Integumentary: Denies pruritus, Denies rash Neurological: Denies numbness, chronic muscle weakness rates to myasthenia gravis and occasional difficulties with swallowing and memory impairment, has issues with gait and mobility and balance. Psychiatric: Denies anxiety, Denies depression Endocrine: Denies fatigue, Denies weight change Past Medical History Past Medical History: COPD, CVA/TIA, Diabetes Mellitus, Eye Disorder, GERD/Reflux, Hearing Disorder / Deafness, Hyperlipidemia, Hypertension, Liver Disease, Memory Impairment, Pneumonia, Prostate Disorder, Seizure Disorder, Sleep Apnea/CPAP/BIPAP, Thyroid Disorder Additional Past Medical History / Comment(s): Pulmonary fibrosis, COPD, diabetes mellitus, photophobia, impaired hearing, hyperlipidemia, hypertension, liver cirrhosis, BPH, peripheral neuropathy, chronic back pain, chronic cervical pain, difficulty with swallowing, myasthenia gravis, chronic constipation, chronic anemia, history of esophageal and gastric varices related to chronic liver disease, splenomegaly, obstructive sleep apnea and the patient has not been utilizing CPAP treatment. Last Myocardial Infarction Date:: 1989 History of Any Multi-Drug Resistant Organisms: VRE Date of last positivie culture/infection: 05/09/18 MDRO Source:: VRE URINE Past Surgical History: Heart Catheterization, Hernia Repair, Orthopedic Surgery, Tonsillectomy Additional Past Surgical History / Comment(s): EGDs/colonoscopies, RT GREAT TOE JOINT replaced, RT SHOULDER rotator cuff repair. rt and left cataract removals with lens implants, bilateral inguinal hernia repairs & hydrocele repair Past Anesthesia/Blood Transfusion Reactions: Motion Sickness Additional Past Anesthesia/Blood Transfusion Reaction / Comment(s): no hx blood transfusion Past Psychological History: Depression Additional Psychological History / Comment(s): Pt now has his son and son's spouse and 6 children living with him. He uses a cane to ambulate or a walker or scooter. He drives but his car is broken down. He has his son push him in a wheelchair to [employer]. 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 He has home o xygen and a glucometer. Smoking Status: Former smoker Past Alcohol Use History: None Reported Additional Past Alcohol Use History / Comment(s): quit smoking approx 50 yrs ago,smoked in -very short time and little amount Past Drug Use History: None Reported - Past Family History Mother Family Medical History: Liver Disease, Pneumonia Additional Family Medical History / Comment(s): alcoholism Father Family Medical History: Cancer Additional Family Medical History / Comment(s): Father had lung cancer with mets to brain. He was a nonsmoker but his spouse smoked in the house. Medications and Allergies Home Medications Medication Instructions Recorded Confirmed Type Finasteride [Proscar] 5 mg PO DAILY 04/14/15 05/09/19 History Furosemide [Lasix] 40 mg PO BID 04/14/15 05/09/19 History Insulin Glargine [Lantus] 45 unit SQ HS 04/14/15 05/09/19 History Nitroglycerin Sl Tabs [Nitrostat] 0.4 mg SUBLINGUAL Q5M PRN #50 tab 09/22/16 05/09/19 Rx Losartan [Cozaar] 50 mg PO DAILY 04/04/17 05/09/19 History Pyridostigmine [place] [Mestinon] 60 mg PO Q4H 04/04/17 05/09/19 History Ranitidine HCl [Zantac] 150 mg PO BID 04/04/17 05/09/19 History Insulin Aspart [NovoLOG] See Protocol SQ AC-TID 08/02/17 05/09/19 History Isosorbide Mononitrate ER [Imdur] 90 mg PO DAILY 08/02/17 05/09/19 History Magnesium Oxide [Mag-Ox] 400 mg PO DAILY 08/02/17 05/09/19 History Pantoprazole Sodium [Protonix] 40 mg PO DAILY 08/02/17 05/09/19 History lamoTRIgine [LaMICtal] 100 mg PO BID 08/02/17 05/09/19 History Spironolactone 75 mg PO DAILY 08/29/18 05/09/19 History Albuterol Sulfate [Proair Hfa] 1 puff INHALATION RT-Q4H PRN 10/25/18 05/09/19 History Cholecalciferol [Vitamin D3 (25 1,000 unit PO DAILY 10/25/18 05/09/19 History Mcg = 1000 Iu)] Morphine Pain Pump 1 dose INTRATHECA CONTINUOUS 10/25/18 05/09/19 History lamiVUDine [Lamivudine] 300 mg PO DAILY 10/25/18 05/09/19 History INSULIN ASPART (NovoLOG) [NovoLOG 3 unit SQ AC-TID vial 11/03/18 05/09/19 Rx (formulary)] Cyanocobalamin [Vitamin B-12] 500 mcg PO DAILY 05/09/19 05/09/19 History Loperamide [Imodium] 4 mg PO TID PRN 05/09/19 05/09/19 History Multivitamins, Thera [Multivitamin 1 tab PO DAILY 05/09/19 05/09/19 History (formulary)] Vitamin E 1,000 unit PO DAILY 05/09/19 05/09/19 History predniSONE 10 mg PO DAILY 05/09/19 05/09/19 History Allergies Allergy/AdvReac Type Severity Reaction Status Date / Time methylprednisolone acetate Allergy Severe Anaphylaxis Verified 05/09/19 21:21 [From Depo-Medrol] cephalexin [From Keflex] Allergy Rash/Hives Verified 05/09/19 21:21 cyclobenzaprine Allergy Unknown Verified 05/09/19 21:21 [From Flexeril] metformin Allergy Unknown Verified 05/09/19 21:21 methylprednisolone Allergy Rash/Hives Verified 05/09/19 21:21 [From Depo-Medrol] tolterodine [From Detrol] Allergy Unknown Verified 05/09/19 21:21 duloxetine [From Cymbalta] AdvReac Intense Verified 05/09/19 21:21 Flushing gabapentin [From Neurontin] AdvReac Tremors Verified 05/09/19 21:21 polyethylene glycol AdvReac Confusion Verified 05/09/19 21:21 [From Golytely] polyethylene glycol 3350 AdvReac Confusion Verified 05/09/19 21:21 [From Golytely] potassium chloride AdvReac Confusion Verified 05/09/19 21:21 [From Golytely] pregabalin [From Lyrica] AdvReac Intense Verified 05/09/19 21:21 Flushing sodium [From Golytely] AdvReac Confusion Verified 05/09/19 21:21 sodium bicarbonate AdvReac Confusion Verified 05/09/19 21:21 [From Golytely] sodium chloride AdvReac Confusion Verified 05/09/19 21:21 [From Golytely] sodium sulfate AdvReac Confusion Verified 05/09/19 21:21 [From Golytely] sodium sulfate anhydrous AdvReac Confusion Verified 05/09/19 21:21 [From Golytely] Physical Exam Vitals: Vital Signs Temp Pulse Pulse Pulse Pulse Pulse Pulse 05/10/19 13:33 77 97 114 H 05/10/19 11:42 98 F 93 05/10/19 07:43 100 05/10/19 07:33 100 05/10/19 04:42 97.9 F 105 H 05/09/19 22:31 98.3 F 76 05/09/19 20:40 88 05/09/19 19:30 80 05/09/19 18:30 97.8 F 79 Resp BP BP Pulse Ox Pulse Ox Pulse Ox Pulse Ox 05/10/19 13:33 99 93 L 87 L 05/10/19 11:42 16 107/52 98 05/10/19 07:43 05/10/19 07:33 05/10/19 04:42 18 155/67 94 L 05/09/19 22:31 18 143/65 96 05/09/19 20:40 18 128/61 98 05/09/19 19:30 18 128/61 97 05/09/19 18:30 22 135/53 97 Intake and Output 05/09/19 05/10/19 05/10/19 22:59 06:59 14:59 Intake Total 783 024 5724 Output Total 450 1900 Balance -150 800 20 Intake: Intake, IV Titration 300 800 340 Amount Levofloxacin 500Mg-D5w 100 Pmx 500 mg In Dextrose/ Water 1 100ml.bag @ 100 mls/hr IVPB Q24H [facility] Rx#: [id number] Magnesium Sulfate-D5w Pmx 200 1 gm In Dextrose/Water 1 100ml.bag @ 100 mls/hr IVPB Q1H [facility] Rx#: [id number] Sodium Chloride 0.9% 1, 100 800 000 ml @ 100 mls/hr IV . Q10H ONE Rx#:[id number] Sodium Chloride 0.9% 1, 240 000 ml @ 20 mls/hr IV . Q24H [facility] Rx#:[id number] Oral 1580 Output: Urine 450 1900 Other: Voiding Method Toilet Toilet Urinal Urinal # Voids 1 3 Weight 119.748 kg GENERAL EXAM: Alert, pleasant, 73-year-old white male on 3 L of oxygen, comfortable in no apparent distress. HEAD: Normocephalic/atraumatic. EYES: Normal reaction of pupils, equal size. Conjunctiva pink, sclera white. NOSE: Clear with pink turbinates. THROAT: No erythema or exudates. NECK: No masses, no JVD, no thyroid enlargement, no adenopathy. CHEST: No chest wall deformity. Symmetrical expansion. LUNGS: Equal air entry with diffuse rhonchi and wheezes CVS: Regular rate and rhythm, normal S1 and S2, no gallops, no murmurs, no rubs ABDOMEN: Soft, nontender. No hepatosplenomegaly, normal bowel sounds, no guarding or rigidity. EXTREMITIES: No clubbing, no edema, no cyanosis, 2+ pulses and upper and lower extremities. MUSCULOSKELETAL: Muscle strength and tone normal. SPINE: No scoliosis or deformity SKIN: No rashes CENTRAL NERVOUS SYSTEM: Alert and oriented -3. No focal deficits, tone is normal in all 4 extremities. PSYCHIATRIC: Alert and oriented -3. Appropriate affect. Intact judgment and insight. Results - Laboratory Findings CBC and BMP: 05/10/19 09:34 05/10/19 09:34 PT/INR, D-dimer PT 11.0 sec (9.0-12.0) 05/09/19 17:06 INR 1.0 (<1.2) 05/09/19 17:06 Abnormal lab findings: Abnormal Labs 05/09/19 05/09/19 05/09/19 17:06 17:06 21:37 RBC 3.77 L Hgb 8.8 L Hct 29.3 L MCV 77.8 L MCH 23.2 L MCHC 29.9 L RDW 17.0 H Plt Count 114 L Lymphocytes # 0.9 L Sodium 133 L BUN 24 H Glucose 161 H POC Glucose (mg/dL) 197 H Magnesium 1.3 L ALT 20 L Total Protein Albumin 05/10/19 05/10/19 05/10/19 06:57 09:34 09:34 RBC 3.38 L Hgb 7.7 L Hct 26.6 L MCV 78.7 L MCH 22.8 L MCHC 29.0 L RDW 16.5 H Plt Count 93 L Lymphocytes # 0.6 L Sodium 134 L BUN 21 H Glucose 165 H POC Glucose (mg/dL) 149 H Magnesium ALT Total Protein 5.5 L Albumin 3.1 L 05/10/19 11:24 RBC Hgb Hct MCV MCH MCHC RDW Plt Count Lymphocytes # Sodium BUN Glucose POC Glucose (mg/dL) 194 H Magnesium ALT Total Protein Albumin - Diagnostic Findings Chest x-ray: image reviewed Assessment and Plan Plan: #1. Acute shortness of breath secondary to an acute tracheobronchitis on top of chronic pulmonary fibrosis which is possibly in the form of an IPF. A superimposed pneumonia is hard to exclude as the patient's chronic interstitial changes related to pulmonary fibrosis. #2. IPF with chronic hypoxic respiratory failure #3. COPD #4. Normal coronaries based on a cardiac catheterization #5. History of chronic congestive heart failure, unspecified, likely of a diastolic dysfunction #6. CVA/TIA #7. Diabetes mellitus type 2 with diabetic neuropathy #8. Hypertension #9. Hyperlipidemia #10. Obstructive sleep apnea not on CPAP therapy #11. Chronic back pain #12. History of chronic liver disease, and esophageal varices #13. Seizure disorder #14. 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 Continue Levaquin. Continue bronchodilators. We'll continue to follow and make further recommendations based on his progress. Sputum Culture was collected.
--- NOTE | 2019-05-10 15:13 | P.CNPUL ---
History of Present Illness Consult date: 05/10/19 Reason for consult: dyspnea, chest pain, hypoxemia, pneumonia, obstructive sleep apnea Chief complaint: Shortness of breath History of present illness: This is a 73-year-old morbidly obese male with history of obstructive sleep apnea and myasthenia gravis, patient has a history of pulmonary fibrosis and chronic hypoxic respiratory failure has been on oxygen 2 L nasal cannula, he has chronic lower extremity edema, came into the hospital with progressive shortness of breath for last 2 days getting worse symptoms actually started more than a week ago and lower extremity edema was getting worse does have thick sputum production which is still issues green in color his chest x-ray revealed bilateral pulmonary fibrosis occult pneumonia cannot be excluded patient is on broad-spectrum antibiotics breathing treatment and steroids feels slightly better than before Review of Systems All systems: negative Past Medical History Past Medical History: COPD, CVA/TIA, Diabetes Mellitus, Eye Disorder, GERD/Reflux, Hearing Disorder / Deafness, Hyperlipidemia, Hypertension, Liver Disease, Memory Impairment, Pneumonia, Prostate Disorder, Seizure Disorder, Sleep Apnea/CPAP/BIPAP, Thyroid Disorder Additional Past Medical History / Comment(s): Pulmonary fibrosis, COPD, diabetes mellitus, photophobia, impaired hearing, hyperlipidemia, hypertension, liver cirrhosis, BPH, peripheral neuropathy, chronic back pain, chronic cervical pain, difficulty with swallowing, myasthenia gravis, chronic constipation, chronic anemia, history of esophageal and gastric varices related to chronic liver disease, splenomegaly, obstructive sleep apnea and the patient has not been utilizing CPAP treatment. Last Myocardial Infarction Date:: 1989 History of Any Multi-Drug Resistant Organisms: VRE Date of last positivie culture/infection: 05/09/18 MDRO Source:: VRE URINE Past Surgical History: Heart Catheterization, Hernia Repair, Orthopedic Surgery, Tonsillectomy Additional Past Surgical History / Comment(s): EGDs/colonoscopies, RT GREAT TOE JOINT replaced, RT SHOULDER rotator cuff repair. rt and left cataract removals with lens implants, bilateral inguinal hernia repairs & hydrocele repair Past Anesthesia/Blood Transfusion Reactions: Motion Sickness Additional Past Anesthesia/Blood Transfusion Reaction / Comment(s): no hx blood transfusion Past Psychological History: Depression Additional Psychological History / Comment(s): Pt now has his son and son's spouse and 6 children living with him. He uses a cane to ambulate or a walker or scooter. He drives but his car is broken down. He has his son push him in a wheelchair to appts. 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 He has home oxygen and a glucometer. Smoking Status: Former smoker Past Alcohol Use History: None Reported Additional Past Alcohol Use History / Comment(s): quit smoking approx 50 yrs ago,smoked in -very short time and little amount Past Drug Use History: None Reported - Past Family History Mother Family Medical History: Liver Disease, Pneumonia Additional Family Medical History / Comment(s): alcoholism Father Family Medical History: Cancer Additional Family Medical History / Comment(s): Father had lung cancer with mets to brain. He was a nonsmoker but his spouse smoked in the house. Medications and Allergies Home Medications Medication Instructions Recorded Confirmed Type Finasteride [Proscar] 5 mg PO DAILY 04/14/15 05/09/19 History Furosemide [Lasix] 40 mg PO BID 04/14/15 05/09/19 History Insulin Glargine [Lantus] 45 unit SQ HS 04/14/15 05/09/19 History Nitroglycerin Sl Tabs [Nitrostat] 0.4 mg SUBLINGUAL Q5M PRN #50 tab 09/22/16 05/09/19 Rx Losartan [Cozaar] 50 mg PO DAILY 04/04/17 05/09/19 History Pyridostigmine [place] [Mestinon] 60 mg PO Q4H 04/04/17 05/09/19 History Ranitidine HCl [Zantac] 150 mg PO BID 04/04/17 05/09/19 History Insulin Aspart [NovoLOG] See Protocol SQ AC-TID 08/02/17 05/09/19 History Isosorbide Mononitrate ER [Imdur] 90 mg PO DAILY 08/02/17 05/09/19 History Magnesium Oxide [Mag-Ox] 400 mg PO DAILY 08/02/17 05/09/19 History Pantoprazole Sodium [Protonix] 40 mg PO DAILY 08/02/17 05/09/19 History lamoTRIgine [LaMICtal] 100 mg PO BID 08/02/17 05/09/19 History Spironolactone 75 mg PO DAILY 08/29/18 05/09/19 History Albuterol Sulfate [Proair Hfa] 1 puff INHALATION RT-Q4H PRN 10/25/18 05/09/19 History Cholecalciferol [Vitamin D3 (25 1,000 unit PO DAILY 10/25/18 05/09/19 History Mcg = 1000 Iu)] Morphine Pain Pump 1 dose INTRATHECA CONTINUOUS 10/25/18 05/09/19 History lamiVUDine [Lamivudine] 300 mg PO DAILY 10/25/18 05/09/19 History INSULIN ASPART (NovoLOG) [NovoLOG 3 unit SQ AC-TID vial 11/03/18 05/09/19 Rx (formulary)] Cyanocobalamin [Vitamin B-12] 500 mcg PO DAILY 05/09/19 05/09/19 History Loperamide [Imodium] 4 mg PO TID PRN 05/09/19 05/09/19 History Multivitamins, Thera [Multivitamin 1 tab PO DAILY 05/09/19 05/09/19 History (formulary)] Vitamin E 1,000 unit PO DAILY 05/09/19 05/09/19 History predniSONE 10 mg PO DAILY 05/09/19 05/09/19 History Allergies Allergy/AdvReac Type Severity Reaction Status Date / Time methylprednisolone acetate Allergy Severe Anaphylaxis Verified 05/09/19 21:21 [From Depo-Medrol] cephalexin [From Keflex] Allergy Rash/Hives Verified 05/09/19 21:21 cyclobenzaprine Allergy Unknown Verified 05/09/19 21:21 [From Flexeril] metformin Allergy Unknown Verified 05/09/19 21:21 methylprednisolone Allergy Rash/Hives Verified 05/09/19 21:21 [From Depo-Medrol] tolterodine [From Detrol] Allergy Unknown Verified 05/09/19 21:21 duloxetine [From Cymbalta] AdvReac Intense Verified 05/09/19 21:21 Flushing gabapentin [From Neurontin] AdvReac Tremors Verified 05/09/19 21:21 polyethylene glycol AdvReac Confusion Verified 05/09/19 21:21 [From Golytely] polyethylene glycol 3350 AdvReac Confusion Verified 05/09/19 21:21 [From Golytely] potassium chloride AdvReac Confusion Verified 05/09/19 21:21 [From Golytely] pregabalin [From Lyrica] AdvReac Intense Verified 05/09/19 21:21 Flushing sodium [From Golytely] AdvReac Confusion Verified 05/09/19 21:21 sodium bicarbonate AdvReac Confusion Verified 05/09/19 21:21 [From Golytely] sodium chloride AdvReac Confusion Verified 05/09/19 21:21 [From Golytely] sodium sulfate AdvReac Confusion Verified 05/09/19 21:21 [From Golytely] sodium sulfate anhydrous AdvReac Confusion Verified 05/09/19 21:21 [From Golytely] Physical Exam Vitals: Vital Signs Temp Pulse Pulse Pulse Pulse Pulse Pulse 05/10/19 13:33 77 97 114 H 05/10/19 11:42 98 F 93 05/10/19 07:43 100 05/10/19 07:33 100 05/10/19 04:42 97.9 F 105 H 05/09/19 22:31 98.3 F 76 05/09/19 20:40 88 05/09/19 19:30 80 05/09/19 18:30 97.8 F 79 Resp BP BP Pulse Ox Pulse Ox Pulse Ox Pulse Ox 05/10/19 13:33 99 93 L 87 L 05/10/19 11:42 16 107/52 98 05/10/19 07:43 05/10/19 07:33 05/10/19 04:42 18 155/67 94 L 05/09/19 22:31 18 143/65 96 05/09/19 20:40 18 128/61 98 05/09/19 19:30 18 128/61 97 05/09/19 18:30 22 135/53 97 Intake and Output 05/10/19 05/10/19 05/10/19 06:59 14:59 22:59 Intake Total 800 1920 Output Total 1900 Balance 800 20 Intake: Intake, IV Titration 800 340 Amount Levofloxacin 500Mg-D5w 100 Pmx 500 mg In Dextrose/ Water 1 100ml.bag @ 100 mls/hr IVPB Q24H [facility] Rx#: [id number] Sodium Chloride 0.9% 1, 800 000 ml @ 100 mls/hr IV . Q10H ONE Rx#:[id number] Sodium Chloride 0.9% 1, 240 000 ml @ 20 mls/hr IV . Q24H [facility] Rx#:[id number] Oral 1580 Output: Urine 1900 Other: Voiding Method Toilet Toilet Urinal Urinal # Voids 3 - Constitutional General appearance: cooperative, disheveled, mild distress, morbidly obese, no acute distress - EENT Eyes: PERRLA, poor dentition Ears: bilateral: normal - Neck Carotids: bilateral: upstroke normal - Respiratory Respiratory: bilateral: diminished, rales (Bilateral dry), negative: CTA, dullness, rhonchi, wheezing, prolonged expiration - Cardiovascular Rhythm: regular Heart sounds: normal: S1, S2 - Gastrointestinal General gastrointestinal: absent bowel sounds - Integumentary Integumentary: normal turgor - Neurologic Neurologic: CNII-XII intact - Musculoskeletal Musculoskeletal: gait normal, generalized weakness, strength equal bilaterally - Psychiatric Psychiatric: A&O x's 3, appropriate affect, intact judgment & insight Results - Laboratory Findings CBC and BMP: 05/10/19 09:34 05/10/19 09:34 PT/INR, D-dimer PT 11.0 sec (9.0-12.0) 05/09/19 17:06 INR 1.0 (<1.2) 05/09/19 17:06 Abnormal lab findings: Abnormal Labs 05/09/19 05/09/19 05/09/19 17:06 17:06 21:37 RBC 3.77 L Hgb 8.8 L Hct 29.3 L MCV 77.8 L MCH 23.2 L MCHC 29.9 L RDW 17.0 H Plt Count 114 L Lymphocytes # 0.9 L Sodium 133 L BUN 24 H Glucose 161 H POC Glucose (mg/dL) 197 H Magnesium 1.3 L ALT 20 L Total Protein Albumin 05/10/19 05/10/19 05/10/19 06:57 09:34 09:34 RBC 3.38 L Hgb 7.7 L Hct 26.6 L MCV 78.7 L MCH 22.8 L MCHC 29.0 L RDW 16.5 H Plt Count 93 L Lymphocytes # 0.6 L Sodium 134 L BUN 21 H Glucose 165 H POC Glucose (mg/dL) 149 H Magnesium ALT Total Protein 5.5 L Albumin 3.1 L 05/10/19 11:24 RBC Hgb Hct MCV MCH MCHC RDW Plt Count Lymphocytes # Sodium BUN Glucose POC Glucose (mg/dL) 194 H Magnesium ALT Total Protein Albumin - Diagnostic Findings Chest x-ray: report reviewed, image reviewed Assessment and Plan Assessment: Acute on chronic hypoxic respiratory failure Pulmonary fibrosis Purulent tracheobronchitis Bilateral lower extremity edema Diastolic heart failure acute on chronic Morbid obesity Obstructive sleep apnea Myasthenia gravis stable on Pyridostigmine Hypertension hypertensive cardiovascular disease Thrombocytopenia History of chronic liver disease Plan: Continue prednisone Gentle diuresis Broad-spectrum antibiotics Continue supportive care Breathing treatments Other recommendations pending plan of care as per clinical response of the patient Time with Patient: Greater than 30
[2019-05-10] MEDS: predniSONE 20 MG TAB PO SCH (16:15)
[2019-05-10 16:56] LABS: % Iron Saturation 2.37 (15.00-50.00); Ferritin 15.1 ng/mL (22.0-322.0)
[2019-05-10 17:27] LABS: Glucose,Whole Blood 183 mg/dL (75-99)
[2019-05-10 19:53] LABS: Glucose,Whole Blood 303 mg/dL (75-99)
[2019-05-11] MEDS: PYRIDOSTIGMINE 60 MG TAB PO SCH ×6 (04:53→23:49)
[2019-05-11 07:00] LABS: Glucose,Whole Blood 193 mg/dL (75-99)
[2019-05-11 07:50] LABS: ALT 25 U/L (21-72); AST 36 U/L (17-59); African American GFR (CKD) >90 (>60 ml/min/1.73 sqM); Albumin 3.8 g/dL (3.5-5.0); Alkaline Phosphatase 77 U/L (38-126); Anion Gap 6 mmol/L; Blood Urea Nitrogen 24 mg/dL (9-20); Calcium 9.6 mg/dL (8.4-10.2); Carbon Dioxide 29 mmol/L (22-30); Chloride 99 mmol/L (98-107); Glucose 156 mg/dL (74-99); Non-African American GFR(CKD) 83 (>60 ml/min/1.73 sqM); Potassium 4.8 mmol/L (3.5-5.1); Sodium 134 mmol/L (137-145); Total Protein 6.5 g/dL (6.3-8.2)
[2019-05-11 08:05] LABS: Anisocytosis Slight; Basophils % (A) 0 %; Eosinophils % (A) 0 %; Hypochromasia Marked; Lymphocytes # (A) 0.7 k/uL (1.0-4.8); Lymphocytes % (A) 8 %; MCH 23.5 pg (25.0-35.0); MCHC 30.7 g/dL (31.0-37.0); MCV 76.4 fL (80.0-100.0); Microcytosis Slight; Monocytes # (A) 0.4 k/uL (0-1.0); Monocytes % (A) 5 %; Neutrophils # (A) 7.6 k/uL (1.3-7.7); Neutrophils % (A) 85 %; Platelet Count 116 k/uL (150-450); RBC 4.06 m/uL (4.30-5.90)
[2019-05-11 08:18] LABS: HGB 9.5 gm/dL (13.0-17.5)
[2019-05-11] MEDS: Lamivudine [Lamivudine] 300 MG PO SCH (08:33)
[2019-05-11] MEDS: ISOSORBIDE MONONITRATE ER 30 MG TAB.ER.24H PO SCH (08:34)
[2019-05-11] MEDS: FUROSEMIDE 40 MG TAB PO SCH ×2 (08:34→22:49)
[2019-05-11] MEDS: CYANOCOBALAMIN 500 MCG TAB PO SCH (08:34)
[2019-05-11] MEDS: predniSONE 20 MG TAB PO SCH (08:34)
[2019-05-11] MEDS: INSULIN ASPART (NovoLOG) 100 UNIT/ML VIAL SQ SCH ×6 (08:35→17:39)
[2019-05-11] MEDS: lamoTRIgine 100 MG TAB PO SCH ×2 (08:36→22:50)
[2019-05-11] MEDS: FINASTERIDE 5 MG TAB PO SCH (08:36)
[2019-05-11] MEDS: SPIRONOLACTONE 25 MG TAB PO SCH (08:38)
[2019-05-11] MEDS: LOSARTAN 50 MG TAB PO SCH (08:38)
[2019-05-11] MEDS: MAGNESIUM OXIDE 400 MG TAB PO SCH (08:38)
[2019-05-11] MEDS: FAMOTIDINE 20 MG TAB PO SCH ×2 (08:38→22:49)
[2019-05-11] MEDS: PANTOPRAZOLE 40 MG TABLET PO SCH (08:38)
[2019-05-11] MEDS: MULTIVITAMINS, THERA 1 EACH TAB PO SCH (08:38)
[2019-05-11] MEDS: CHOLECALCIFEROL 1,000 UNIT TAB PO SCH (08:40)
--- NOTE | 2019-05-11 10:08 | P.CONS ---
History of Present Illness - Reason for Consult Consult date: 05/10/19 Bilateral cellulitis and multiple antibiotic ALLERGY Requesting physician: Josr Osorio - Chief Complaint Shortness of breath worsening over the last 1 week - History of Present Illness Patient is a 73 year male with a past medical history significant for pulmonary fibrosis patient is currently on home O2 at 2 L/m patient presenting to the ER at [facility] she complained of increasing shortness of breath patient to have a chronic difficulty breathing however the last 4 days the patient has been more short of breath with minimal exertion and even at rest the patient also have a mild to moderate cough and bring up some yellowish sputum and no hemoptysis patient denies having any chest pain denies any high- grade fever rigors or chills no nausea no vomiting no choking of food abdominal pain or any diarrhea with these symptoms for the patient presented to the ER, on presentation the patient was if the Remeron and remains to be afebrile patient did have a normal white count, the patient did have a chest x-ray shows moderate pulmonary is to treat fibrosis unchanged normal heart the patient had been started on her Levaquin patient also noticed to have more swelling in bilateral lower extremity with some erythema to the right leg with concern for bilateral extremity cellulitis patient to do have history of some malaise and ALLERGY inf ection it was consulted for further recommendation regarding antibiotic therapy patient becomes a little swelling in his lower extremity symptoms chronic for him with some recent worsening patient did have mild aching pain in the leg more of a dull aching about 5-10 and no radiation, currently with no open wound or any drainage Review of Systems Positive point has been mentioned in the HPI rest of the systems are negative Past Medical History Past Medical History: COPD, CVA/TIA, Diabetes Mellitus, Eye Disorder, GERD/Reflux, Hearing Disorder / Deafness, Hyperlipidemia, Hypertension, Liver Disease, Memory Impairment, Pneumonia, Prostate Disorder, Seizure Disorder, Sleep Apnea/CPAP/BIPAP, Thyroid Disorder Additional Past Medical History / Comment(s): Pulmonary fibrosis, COPD, diabetes mellitus, photophobia, impaired hearing, hyperlipidemia, hypertension, liver cirrhosis, BPH, peripheral neuropathy, chronic back pain, chronic cervical pain, difficulty with swallowing, myasthenia gravis, chronic constipation, chronic anemia, history of esophageal and gastric varices related to chronic liver di sease, splenomegaly, obstructive sleep apnea and the patient has not been utilizing CPAP treatment. Last Myocardial Infarction Date:: 1989 History of Any Multi-Drug Resistant Organisms: VRE Year Discovered:: 05/09/18 MDRO Source:: VRE URINE Past Surgical History: Heart Catheterization, Hernia Repair, Orthopedic Surgery, Tonsillectomy Additional Past Surgical History / Comment(s): EGDs/colonoscopies, RT GREAT TOE JOINT replaced, RT SHOULDER rotator cuff repair. rt and left cataract removals with lens implants, bilateral inguinal hernia repairs & hydrocele repair Past Anesthesia/Blood Transfusion Reactions: Motion Sickness Additional Past Anesthesia/Blood Transfusion Reaction / Comm: no hx blood transfusion Past Psychological History: Depression Additional Psychological History / Comment(s): Pt now has his son and son's spouse and 6 children living with him. He uses a cane to ambulate or a walker or scooter. He drives but his car is broken down. He has his son push him in a wheelchair to appts. 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 He has home oxygen and a glucometer. Smoking Status: Former smoker Past Alcohol Use History: None Reported Additional Past Alcohol Use History / Comment(s): quit smoking approx 50 yrs ago,smoked in [employer]-very short time and little amount Past Drug Use History: None Reported - Past Family History Mother Family Medical History: Liver Disease, Pneumonia Additional Family Medical History / Comment(s): alcoholism Father Family Medical History: Cancer Additional Family Medical History / Comment(s): Father had lung cancer with mets to brain. He was a nonsmoker but his spouse smoked in the house. Medications and Allergies Home Medications Medication Instructions Recorded Confirmed Type Finasteride [Proscar] 5 mg PO DAILY 04/14/15 05/09/19 History Furosemide [Lasix] 40 mg PO BID 04/14/15 05/09/19 History Insulin Glargine [Lantus] 45 unit SQ HS 04/14/15 05/09/19 History Nitroglycerin Sl Tabs [Nitrostat] 0.4 mg SUBLINGUAL Q5M PRN #50 tab 09/22/16 05/09/19 Rx Losartan [Cozaar] 50 mg PO DAILY 04/04/17 05/09/19 History Pyridostigmine [place] [Mestinon] 60 mg PO Q4H 04/04/17 05/09/19 History Ranitidine HCl [Zantac] 150 mg PO BID 04/04/17 05/09/19 History Insulin Aspart [NovoLOG] See Protocol SQ AC-TID 08/02/17 05/09/19 History Isosorbide Mononitrate ER [Imdur] 90 mg PO DAILY 08/02/17 05/09/19 History Magnesium Oxide [Mag-Ox] 400 mg PO DAILY 08/02/17 05/09/19 History Pantoprazole Sodium [Protonix] 40 mg PO DAILY 08/02/17 05/09/19 History lamoTRIgine [LaMICtal] 100 mg PO BID 08/02/17 05/09/19 History Spironolactone 75 mg PO DAILY 08/29/18 05/09/19 History Albuterol Sulfate [Proair Hfa] 1 puff INHALATION RT-Q4H PRN 10/25/18 05/09/19 History Cholecalciferol [Vitamin D3 (25 1,000 unit PO DAILY 10/25/18 05/09/19 History Mcg = 1000 Iu)] Morphine Pain Pump 1 dose INTRATHECA CONTINUOUS 10/25/18 05/09/19 History lamiVUDine [Lamivudine] 300 mg PO DAILY 10/25/18 05/09/19 History INSULIN ASPART (NovoLOG) [NovoLOG 3 unit SQ AC-TID vial 11/03/18 05/09/19 Rx (formulary)] Cyanocobalamin [Vitamin B-12] 500 mcg PO DAILY 05/09/19 05/09/19 History Loperamide [Imodium] 4 mg PO TID PRN 05/09/19 05/09/19 History Multivitamins, Thera [Multivitamin 1 tab PO DAILY 05/09/19 05/09/19 History (formulary)] Vitamin E 1,000 unit PO DAILY 05/09/19 05/09/19 History predniSONE 10 mg PO DAILY 05/09/19 05/09/19 History Allergies Allergy/AdvReac Type Severity Reaction Status Date / Time methylprednisolone acetate Allergy Severe Anaphylaxis Verified 05/09/19 21:21 [From Depo-Medrol] cephalexin [From Keflex] Allergy Rash/Hives Verified 05/09/19 21:21 cyclobenzaprine Allergy Unknown Verified 05/09/19 21:21 [From Flexeril] metformin Allergy Unknown Verified 05/09/19 21:21 methylprednisolone Allergy Rash/Hives Verified 05/09/19 21:21 [From Depo-Medrol] tolterodine [From Detrol] Allergy Unknown Verified 05/09/19 21:21 duloxetine [From Cymbalta] AdvReac Intense Verified 05/09/19 21:21 Flushing gabapentin [From Neurontin] AdvReac Tremors Verified 05/09/19 21:21 polyethylene glycol AdvReac Confusion Verified 05/09/19 21:21 [From Golytely] polyethylene glycol 3350 AdvReac Confusion Verified 05/09/19 21:21 [From Golytely] potassium chloride AdvReac Confusion Verified 05/09/19 21:21 [From Golytely] pregabalin [From Lyrica] AdvReac Intense Verified 05/09/19 21:21 Flushing sodium [From Golytely] AdvReac Confusion Verified 05/09/19 21:21 sodium bicarbonate AdvReac Confusion Verified 05/09/19 21:21 [From Golytely] sodium chloride AdvReac Confusion Verified 05/09/19 21:21 [From Golytely] sodium sulfate AdvReac Confusion Verified 05/09/19 21:21 [From Golytely] sodium sulfate anhydrous AdvReac Confusion Verified 05/09/19 21:21 [From Golytely] Physical Exam Vitals: Vital Signs Temp Pulse Pulse Pulse Pulse Pulse Pulse 05/11/19 05:15 97.9 F 84 05/10/19 21:09 97.8 F 68 05/10/19 16:00 91 93 05/10/19 13:33 77 97 91 114 H 05/10/19 11:42 98 F 93 Resp BP Pulse Ox Pulse Ox Pulse Ox Pulse Ox Pulse Ox 05/11/19 05:15 20 111/55 95 05/10/19 21:09 18 129/63 97 05/10/19 16:00 16 05/10/19 13:33 99 93 L 93 L 87 L 05/10/19 11:42 16 107/52 98 Intake and Output 05/10/19 05/11/19 05/11/19 22:59 06:59 14:59 Output Total 700 800 Balance -700 -800 Output: Urine 700 800 Other: Voiding Method Toilet Toilet Urinal Urinal # Voids 2 GENERAL DESCRIPTION: Elderly male up in the chair no distress. No tachypnea or accessory muscle of respiration use. HEENT: Shows Pallor , no scleral icterus. Oral mucous membrane is dry. No pharyngeal erythema or thrush NECK: Trachea central, no thyromegaly. LUNGS: Unlabored breathing. Decreased breath on the base. No wheeze or crackle. HEART: S1, S2, regular rate and rhythm. No loud murmur ABDOMEN: Soft, no tenderness , guarding or rigidity, no organomegaly EXTREMITIES: Bilaterally symmetric diffuse swelling minimal redness slightly warm to touch SKIN: No rash, no masses palpable. NEUROLOGICAL: The patient is awake, alert, oriented x3, mood and affect normal. Results CBC & Chem 7: 05/11/19 07:25 05/11/19 07:25 Labs: Abnormal Lab Results - Last 24 Hours (Table) 05/10/19 05/10/19 05/10/19 Range/Units 09:34 09:34 09:34 RBC 3.38 L (4.30-5.90) m/uL Hgb 7.7 L (13.0-17.5) gm/dL Hct 26.6 L (39.0-53.0) % MCV 78.7 L (80.0-100.0) fL MCH 22.8 L (25.0-35.0) pg MCHC 29.0 L (31.0-37.0) g/dL RDW 16.5 H (11.5-15.5) % Plt Count 93 L (150-450) k/uL Lymphocytes # 0.6 L (1.0-4.8) k/uL Sodium 134 L (137-145) mmol/L BUN 21 H (9-20) mg/dL Glucose 165 H (74-99) mg/dL POC Glucose (mg/dL) (75-99) mg/dL Hemoglobin A1c (4.0-6.0) % Iron 8 L (65-175) ug/dL % Saturation 2.37 L (15.00-50.00) Ferritin 15.1 L (22.0-322.0) ng/mL Total Protein 5.5 L (6.3-8.2) g/dL Albumin 3.1 L (3.5-5.0) g/dL 05/10/19 05/10/19 05/10/19 Range/Units 09:34 11:24 17:26 RBC (4.30-5.90) m/uL Hgb (13.0-17.5) gm/dL Hct (39.0-53.0) % MCV (80.0-100.0) fL MCH (25.0-35.0) pg MCHC (31.0-37.0) g/dL RDW (11.5-15.5) % Plt Count (150-450) k/uL Lymphocytes # (1.0-4.8) k/uL Sodium (137-145) mmol/L BUN (9-20) mg/dL Glucose (74-99) mg/dL POC Glucose (mg/dL) 194 H 183 H (75-99) mg/dL Hemoglobin A1c 8.0 H (4.0-6.0) % Iron (65-175) ug/dL % Saturation (15.00-50.00) Ferritin (22.0-322.0) ng/mL Total Protein (6.3-8.2) g/dL Albumin (3.5-5.0) g/dL 05/10/19 05/11/19 05/11/19 Range/Units 19:51 06:58 07:25 RBC 4.06 L (4.30-5.90) m/uL Hgb 9.5 L D (13.0-17.5) gm/dL Hct 31.0 L (39.0-53.0) % MCV 76.4 L (80.0-100.0) fL MCH 23.5 L (25.0-35.0) pg MCHC 30.7 L (31.0-37.0) g/dL RDW 17.0 H (11.5-15.5) % Plt Count 116 L (150-450) k/uL Lymphocytes # 0.7 L (1.0-4.8) k/uL Sodium (137-145) mmol/L BUN (9-20) mg/dL Glucose (74-99) mg/dL POC Glucose (mg/dL) 303 H 193 H (75-99) mg/dL Hemoglobin A1c (4.0-6.0) % Iron (65-175) ug/dL % Saturation (15.00-50.00) Ferritin (22.0-322.0) ng/mL Total Protein (6.3-8.2) g/dL Albumin (3.5-5.0) g/dL 05/11/19 Range/Units 07:25 RBC (4.30-5.90) m/uL Hgb (13.0-17.5) gm/dL Hct (39.0-53.0) % MCV (80.0-100.0) fL MCH (25.0-35.0) pg MCHC (31.0-37.0) g/dL RDW (11.5-15.5) % Plt Count (150-450) k/uL Lymphocytes # (1.0-4.8) k/uL Sodium 134 L (137-145) mmol/L BUN 24 H (9-20) mg/dL Glucose 156 H (74-99) mg/dL POC Glucose (mg/dL) (75-99) mg/dL Hemoglobin A1c (4.0-6.0) % Iron (65-175) ug/dL % Saturation (15.00-50.00) Ferritin (22.0-322.0) ng/mL Total Protein (6.3-8.2) g/dL Albumin (3.5-5.0) g/dL Assessment and Plan Assessment: 1-patient presented to hospital with increased shortness of breath with minimal exertion this patient did have a mild cough bringing up some yellow sputum however x-rays were negative for any acute infiltrate in this patient who did have history of pulmonary fibrosis with concern for possible tracheobronchitis, underlying pneumonia less likely in view of patient with no fever or elevated white count 2-patient with diffuse swelling in both lower extremity with mild erythema to the right leg likely related to Fluid overload underlying cellulitis is less likely but not entirely excluded 3-Patient with multiple antibiotic ALLERGIES that would limit the number of a ntibiotic safe to use (1) Bilateral lower leg cellulitis Current Visit: Yes Status: Acute Code(s): L03.116 - CELLULITIS OF LEFT LOWER LIMB; L03.115 - CELLULITIS OF RIGHT LOWER LIMB SNOMED Code(s): 303746097 Plan: 1-we will add clindamycin 600 g IV every 8 hours 2-Levaquin 500 one daily for underlying trigger bronchitis 3-Michael wrap to the leg from just above the toe to below the knee 4-add probiotic We will follow on clinical condition and cultures to further adjust medication if needed Thank you for this consultation will follow this patient with you Time with Patient: Greater than 30
[2019-05-11 11:40] LABS: Glucose,Whole Blood 297 mg/dL (75-99)
[2019-05-11] MEDS: LEVOFLOXACIN 500MG-D5W PMX 500 MG in DEXTROSE/WATER 1 100ML.BAG IVPB SCH (12:16)
--- NOTE | 2019-05-11 12:41 | PN ---
PROGRESS NOTE DATE OF SERVICE: 05/11/2019 REASON FOR FOLLOWUP: Possible tracheobronchitis and lower extremity cellulitis. INTERVAL HISTORY: The patient is currently afebrile. The patient is breathing comfortably. The patient denies having any chest pain. Still has shortness of breath and cough with occasional sputum. No hemoptysis. Swelling of the leg has slightly decreased. No pain in the leg. PHYSICAL EXAMINATION: Blood pressure 111/55 with a pulse of 84, temperature 97.9. He is 95% on room air. General description is an elderly male up in the bed in no distress. Respiratory system: Unlabored breathing. Coarse breath sounds bilaterally. No wheeze. Heart S1, S2. Regular rate and rhythm. Abdomen: Distant bowel sounds. Legs do have swelling with minimal redness. No open wound or any drainage. LABS: Hemoglobin 9.5, white count of 9.0, BUN of 24, creatinine 0.91. IMPRESSION/PLAN: 1. Admitted hospital with increasing shortness of breath and the patient did have some cough, bringing up some sputum, possible tracheobronchitis. X-rays were negative for any pneumonia. Currently covered with Levaquin. 2. Left lower extremity swelling with concern for possible cellulitis. The patient is currently covered with clindamycin along with Michael wrap to keep the swelling down. Continue supportive care. MMODL / IJN: [id number] /
--- NOTE | 2019-05-11 12:52 | P.PN ---
Subjective Progress Note Date: 05/11/19 This is a 73-year-old male patient of Dr. Osorio who presents with worsening shortness of breath over the last couple days. He does mention that he noticed symptoms weeks ago but the last few days have been especially worse. Patient states that the shortness breath is exacerbated by exertion, he has some relief at rest. Patient has had a productive cough, with thick, yellow sputum. He states that he used [id number] cough suppressant which did give him some relief. Today he is sitting up in chair, in no acute distress. He is wearing 2 L of oxygen and states that he wears this at home as needed. He reports having chills at home and states that he has to wear several blankets at night. He also thinks he might have had a low-grade temp but has been afebrile since admission. He denies any chest pain, palpitations. He denies any nausea, vomiting, diarrhea. He denies any urinary frequency or burning. Past medical history includes: Myasthenia gravis, interstitial lung disease, CVA/TIA, diabetes mellitus, liver cirrhosis, myocardial infarction, hypothyroidism, obstructive sleep apnea, GERD with reflux, hearing disorder/deafness, hypertension hyperlipidemia, seizure disorder. On 05/11/2019 patient was seen and examined on the medical floor he is alert and oriented 3 in no apparent distress he is complaining of pain in his upper back, lower back, and both legs. He has a pain pump implanted however he states that his pain is not well controlled he is also still complaining of cough and shortness of breath especially with activity otherwise he denies any complaints there is no fever or chills no headache or dizziness no chest pain no nausea or vomiting no abdominal pain no diarrhea no burning was urination no frequency or urgency no hematuria. Objective - Vital Signs Vital signs: Vital Signs Temp 97.9 F 05/11/19 05:15 Pulse 84 05/11/19 05:15 Resp 20 05/11/19 05:15 BP 111/55 05/11/19 05:15 Pulse Ox 95 05/11/19 05:15 Intake & Output 05/10/19 05/11/19 05/11/19 18:59 06:59 18:59 Intake Total 1920 Output Total 1900 1500 Balance 20 -1500 Intake: Intake, IV Titration 340 Amount Levofloxacin 500Mg-D5w 100 Pmx 500 mg In Dextrose/ Water 1 100ml.bag @ 100 mls/hr IVPB Q24H MOISES Rx#: [id number] Sodium Chloride 0.9% 1, 240 000 ml @ 20 mls/hr IV . Q24H MOISES Rx#:[id number] Oral 1580 Output: Urine 1900 1500 Other: Voiding Method Toilet Toilet Toilet Urinal Urinal Urinal # Voids 3 2 - Exam In general patient is alert and oriented 3 in no apparent distress HEENT head normocephalic and atraumatic Neck is supple no JVD no goiter no lymphadenopathy Chest exam reveals a few scattered crackles no wheezing Cardiac exam reveals regular heart sounds no gallops no murmurs Abdomen is soft nontender no organomegaly with normal bowel sounds Extremity exam reveals 2+ edema with mild erythema and warmth in the pretibial areas Neurological examination reveals no gross focal deficit - Labs CBC & Chem 7: 05/11/19 07:25 05/11/19 07:25 Labs: Abnormal Lab Results - Last 24 Hours (Table) 05/10/19 05/10/19 05/10/19 Range/Units 09:34 09:34 17:26 RBC (4.30-5.90) m/uL Hgb (13.0-17.5) gm/dL Hct (39.0-53.0) % MCV (80.0-100.0) fL MCH (25.0-35.0) pg MCHC (31.0-37.0) g/dL RDW (11.5-15.5) % Plt Count (150-450) k/uL Lymphocytes # (1.0-4.8) k/uL Sodium (137-145) mmol/L BUN (9-20) mg/dL Glucose (74-99) mg/dL POC Glucose (mg/dL) 183 H (75-99) mg/dL Hemoglobin A1c 8.0 H (4.0-6.0) % Iron 8 L (65-175) ug/dL % Saturation 2.37 L (15.00-50.00) Ferritin 15.1 L (22.0-322.0) ng/mL 05/10/19 05/11/19 05/11/19 Range/Units 19:51 06:58 07:25 RBC 4.06 L (4.30-5.90) m/uL Hgb 9.5 L D (13.0-17.5) gm/dL Hct 31.0 L (39.0-53.0) % MCV 76.4 L (80.0-100.0) fL MCH 23.5 L (25.0-35.0) pg MCHC 30.7 L (31.0-37.0) g/dL RDW 17.0 H (11.5-15.5) % Plt Count 116 L (150-450) k/uL Lymphocytes # 0.7 L (1.0-4.8) k/uL Sodium (137-145) mmol/L BUN (9-20) mg/dL Glucose (74-99) mg/dL POC Glucose (mg/dL) 303 H 193 H (75-99) mg/dL Hemoglobin A1c (4.0-6.0) % Iron (65-175) ug/dL % Saturation (15.00-50.00) Ferritin (22.0-322.0) ng/mL 05/11/19 05/11/19 Range/Units 07:25 11:39 RBC (4.30-5.90) m/uL Hgb (13.0-17.5) gm/dL Hct (39.0-53.0) % MCV (80.0-100.0) fL MCH (25.0-35.0) pg MCHC (31.0-37.0) g/dL RDW (11.5-15.5) % Plt Count (150-450) k/uL Lymphocytes # (1.0-4.8) k/uL Sodium 134 L (137-145) mmol/L BUN 24 H (9-20) mg/dL Glucose 156 H (74-99) mg/dL POC Glucose (mg/dL) 297 H (75-99) mg/dL Hemoglobin A1c (4.0-6.0) % Iron (65-175) ug/dL % Saturation (15.00-50.00) Ferritin (22.0-322.0) ng/mL Assessment and Plan Plan: 1. Dyspnea related to acute exacerbation of interstitial lung disease. Pulmonary service was consulted. Patient is on prednisone due to ALLERGY to Solu-Medrol. Chest x-ray obtained in ER, impression is moderate pulmonary interstitial fibrosis is unchanged. 2. Acute tracheobronchitis. Will start Levaquin. Sputum ordered. Mucinex added. 3. Lateral lower extremity cellulitis. Consulted ID services. Will wait for recommendations 4. History of interstitial lung disease/pulmonary fibrosis history of chronic hypoxemic respiratory failure. Patient is maintained on home O2 5. Iron deficiency anemia. Will order iron studies. Patient has required IV iron transfusions in the past 6. History of diastolic congestive heart failure. Last echo completed December 2016. EF between 50 and 55%. Patient maintained on Lasix and Aldactone. 7. History of CAD. Patient underwent cardiac catheterization in August 2017, conclusion normal coronary artery angiogram, normal left ventricle end-diastolic pressure. 8. History of myasthenia gravis. Maintained on pyridostigmine. Follows with neurology outpatient. 9. History of diabetes mellitus type 2. Last hemoglobin A1c of 7.9 (from 10/26/18). Resume home insulin. Add sliding scale coverage 10. Hypertension essential. Resume home medications with parameters. 11. History of nonalcoholic liver cirrhosis 12. Chronic pain syndrome with morphine pump. Patient follows with Dr. Jernigan 13. History of obstructive sleep apnea. Unable to tolerate home CPAP, patient wears 2 L O2 as needed at home 14. History of seizure disorder. Maintain on Lamictal. Last seizure 2018 per patient. 15. History of GERD with reflux. Maintained on Pepcid and Protonix 16. History of former smoker 17. thrombocytopenia likely secondary to history of liver cirrhosis. Platelet count 94 18. Patient is complaining of uncontrolled pain in his upper back lower back and bilateral lower extremities at this time will add [place], patient should return to his pain specialist as outpatient for adjustment of his pain pump or further management of his chronic pain. DVT prophylaxis SCDs due to thrombocytopenia and anemia. GI prophylaxis Pepcid Protonix
[2019-05-11] MEDS: SODIUM CHLORIDE 0.9% 1,000 ML IV SCH (14:43)
[2019-05-11] MEDS: CLINDAMYCIN 600 MG in DEXTROSE 5% IN WATER 50 ML IVPB SCH ×6 (14:44→23:50)
--- NOTE | 2019-05-11 15:50 | PN ---
PROGRESS NOTE DATE OF SERVICE: 05/11/2019 He continues to have shortness of breath at this time. He has a cough with some wheezing. PHYSICAL EXAMINATION: Blood pressure is 122/58, respiratory rate is 16, pulse rate of 74, temperature 98.2 degrees Fahrenheit. HEENT is unremarkable. Chest reveals expiratory wheeze. Cardiovascular system reveals an S1, S2. Abdomen is soft. There is no pedal edema. White count is 9, hemoglobin of 9.5, sodium 134, potassium 4.8, chloride 99, bicarb 29, BUN 24, creatinine 0.91. IMPRESSION: 1. Interstitial lung disease with chronic respiratory failure with acute exacerbation. 2. Myasthenia gravis. 3. Possible occult asthma. 4. Obstructive sleep apnea. 5. Seizure disorder. 6. Congestive heart failure and coronary artery disease. At this point in time, would continue bronchodilators, clindamycin, oral steroids and Levaquin. Depending on how he does we should make further changes to his care. MMODL / IJN: [id number] /
[2019-05-11] MEDS: HYDROcodone/APAP 7.5-325MG 1 EACH TAB PO PRN ×2 (16:07→23:49)
[2019-05-11 17:38] LABS: Glucose,Whole Blood 283 mg/dL (75-99)
[2019-05-11] MEDS: LOPERAMIDE 2 MG CAP PO PRN (17:41)
[2019-05-11 19:40] LABS: Glucose,Whole Blood 268 mg/dL (75-99)
[2019-05-11] MEDS: INSULIN DETEMIR (LEVEMIR) 100 UNIT/ML SYR SQ SCH (22:49)
[2019-05-12] MEDS: PYRIDOSTIGMINE 60 MG TAB PO SCH ×5 (04:17→21:43)
[2019-05-12 06:59] LABS: Glucose,Whole Blood 85 mg/dL (75-99)
[2019-05-12] MEDS: INSULIN ASPART (NovoLOG) 100 UNIT/ML VIAL SQ SCH ×6 (07:36→17:49)
[2019-05-12] MEDS: CLINDAMYCIN 600 MG in DEXTROSE 5% IN WATER 50 ML IVPB SCH ×4 (08:03→15:22)
[2019-05-12] MEDS: MAGNESIUM OXIDE 400 MG TAB PO SCH (08:04)
[2019-05-12] MEDS: MULTIVITAMINS, THERA 1 EACH TAB PO SCH (08:04)
[2019-05-12] MEDS: CYANOCOBALAMIN 500 MCG TAB PO SCH (08:04)
[2019-05-12] MEDS: ISOSORBIDE MONONITRATE ER 30 MG TAB.ER.24H PO SCH (08:04)
[2019-05-12] MEDS: LOSARTAN 50 MG TAB PO SCH (08:04)
[2019-05-12] MEDS: FUROSEMIDE 40 MG TAB PO SCH ×2 (08:04→21:42)
[2019-05-12] MEDS: predniSONE 20 MG TAB PO SCH (08:04)
[2019-05-12] MEDS: PANTOPRAZOLE 40 MG TABLET PO SCH (08:04)
[2019-05-12] MEDS: CHOLECALCIFEROL 1,000 UNIT TAB PO SCH (08:04)
[2019-05-12] MEDS: Lamivudine [Lamivudine] 300 MG PO SCH (08:05)
[2019-05-12] MEDS: FAMOTIDINE 20 MG TAB PO SCH ×2 (08:05→21:42)
[2019-05-12] MEDS: FINASTERIDE 5 MG TAB PO SCH (08:05)
[2019-05-12] MEDS: SPIRONOLACTONE 25 MG TAB PO SCH (08:05)
[2019-05-12] MEDS: lamoTRIgine 100 MG TAB PO SCH ×2 (08:11→21:42)
[2019-05-12 08:45] LABS: Anisocytosis Slight; Basophils % (A) 0 %; Eosinophils % (A) 0 %; HGB 8.2 gm/dL (13.0-17.5); Hypochromasia Marked; Lymphocytes # (A) 1.1 k/uL (1.0-4.8); Lymphocytes % (A) 16 %; MCHC 30.2 g/dL (31.0-37.0); MCV 76.4 fL (80.0-100.0); Mean Platelet Volume 5.9; Microcytosis Slight; Monocytes # (A) 0.5 k/uL (0-1.0); Monocytes % (A) 7 %; Neutrophils % (A) 73 %; Platelet Count 106 k/uL (150-450); RBC 3.54 m/uL (4.30-5.90); RDW 16.7 % (11.5-15.5); WBC 6.9 k/uL (3.8-10.6)
[2019-05-12 09:01] LABS: Albumin 3.1 g/dL (3.5-5.0); Calcium 9.4 mg/dL (8.4-10.2); Potassium 4.2 mmol/L (3.5-5.1); Total Bilirubin 0.7 mg/dL (0.2-1.3); Total Protein 5.6 g/dL (6.3-8.2)
[2019-05-12 10:56] LABS: Glucose,Whole Blood 251 mg/dL (75-99)
[2019-05-12] MEDS: LEVOFLOXACIN 500MG-D5W PMX 500 MG in DEXTROSE/WATER 1 100ML.BAG IVPB SCH (12:39)
[2019-05-12] MEDS: HYDROcodone/APAP 7.5-325MG 1 EACH TAB PO PRN (12:42)
--- NOTE | 2019-05-12 12:48 | P.PN ---
Subjective Progress Note Date: 05/12/19 This is a 73-year-old male patient of Dr. Osorio who presents with worsening shortness of breath over the last couple days. He does mention that he noticed symptoms weeks ago but the last few days have been especially worse. Patient states that the shortness breath is exacerbated by exertion, he has some relief at rest. Patient has had a productive cough, with thick, yellow sputum. He states that he used [id number] cough suppressant which did give him some relief. Today he is sitting up in chair, in no acute distress. He is wearing 2 L of oxygen and states that he wears this at home as needed. He reports having chills at home and states that he has to wear several blankets at night. He also thinks he might have had a low-grade temp but has been afebrile since admission. He denies any chest pain, palpitations. He denies any nausea, vomiting, diarrhea. He denies any urinary frequency or burning. Past medical history includes: Myasthenia gravis, interstitial lung disease, CVA/TIA, diabetes mellitus, liver cirrhosis, myocardial infarction, hypothyroidism, obstructive sleep apnea, GERD with reflux, hearing disorder/deafness, hypertension hyperlipidemia, seizure disorder. On 05/11/2019 patient was seen and examined on the medical floor he is alert and oriented 3 in no apparent distress he is complaining of pain in his upper back, lower back, and both legs. He has a pain pump implanted however he states that his pain is not well controlled he is also still complaining of cough and shortness of breath especially with activity otherwise he denies any complaints there is no fever or chills no headache or dizziness no chest pain no nausea or vomiting no abdominal pain no diarrhea no burning was urination no frequency or urgency no hematuria.. On 05/12/2019 patient was seen and examined on the medical floor he is complaining of rectal bleeding that he relates to hemorrhoids he is complaining of back pain and he is still complaining of cough and shortness of breath and wheezing. Otherwise he denies any complaints there is no fever or chills no headache or dizziness no chest pain nausea or vomiting no abdominal pain no diarrhea no burning was urination no frequency or urgency no hematuria. Objective - Vital Signs Vital signs: Vital Signs Temp 97.7 F 05/12/19 11:00 Pulse 71 05/12/19 11:00 Resp 16 05/12/19 11:00 BP 103/54 05/12/19 11:00 Pulse Ox 95 05/12/19 11:00 Intake & Output 05/11/19 05/12/19 05/12/19 18:59 06:59 18:59 Intake Total 520 Output Total 400 Balance 520 -400 Intake: Intake, IV Titration 100 Amount Clindamycin 600 mg In 100 Dextrose 5% in Water 50 ml @ 50 mls/hr IVPB Q8HR [facility] Rx#:[id number] Oral 420 Output: Urine 400 Other: Voiding Method Toilet Toilet Urinal Urinal # Voids 2 420 # Bowel Movements 2 - Exam In general patient is alert and oriented 3 in no apparent distress HEENT head normocephalic and atraumatic Neck is supple no JVD no goiter no lymphadenopathy Chest exam reveals a few scattered crackles no wheezing Cardiac exam reveals regular heart sounds no gallops no murmurs Abdomen is soft nontender no organomegaly with normal bowel sounds Extremity exam reveals 2+ edema with mild erythema and warmth in the pretibial areas Neurological examination reveals no gross focal deficit - Labs CBC & Chem 7: 05/12/19 07:47 05/12/19 07:47 Labs: Abnormal Lab Results - Last 24 Hours (Table) 05/11/19 05/11/19 05/12/19 Range/Units 17:22 19:39 07:47 RBC 3.54 L (4.30-5.90) m/uL Hgb 8.2 L (13.0-17.5) gm/dL Hct 27.0 L (39.0-53.0) % MCV 76.4 L (80.0-100.0) fL MCH 23.0 L (25.0-35.0) pg MCHC 30.2 L (31.0-37.0) g/dL RDW 16.7 H (11.5-15.5) % Plt Count 106 L (150-450) k/uL Sodium (137-145) mmol/L BUN (9-20) mg/dL Glucose (74-99) mg/dL POC Glucose (mg/dL) 283 H 268 H (75-99) mg/dL Total Protein (6.3-8.2) g/dL Albumin (3.5-5.0) g/dL 11/10/19 11/10/19 Range/Units 07:47 10:54 RBC (4.30-5.90) m/uL Hgb (13.0-17.5) gm/dL Hct (39.0-53.0) % MCV (80.0-100.0) fL MCH (25.0-35.0) pg MCHC (31.0-37.0) g/dL RDW (11.5-15.5) % Plt Count (150-450) k/uL Sodium 134 L (137-145) mmol/L BUN 33 H (9-20) mg/dL Glucose 64 L (74-99) mg/dL POC Glucose (mg/dL) 251 H (75-99) mg/dL Total Protein 5.6 L (6.3-8.2) g/dL Albumin 3.1 L (3.5-5.0) g/dL Assessment and Plan Plan: 1. Dyspnea related to acute exacerbation of interstitial lung disease. Pulmonary service was consulted. Patient is on prednisone due to ALLERGY to Solu-Medrol. Chest x-ray obtained in ER, impression is moderate pulmonary interstitial fibrosis is unchanged. 2. Acute tracheobronchitis. Will start Levaquin. Sputum ordered. Mucinex added. 3. Lateral lower extremity cellulitis. Consulted ID services. Will wait for recommendations 4. History of interstitial lung disease/pulmonary fibrosis history of chronic hypoxemic respiratory failure. Patient is maintained on home O2 5. Iron deficiency anemia. Will order iron studies. Patient has required IV iron transfusions in the past, patient is having rectal bleeding at this time, which is mild and he relates it to hemorrhoids, will give local treatment, patient had a colonoscopy 2 weeks ago at the [facility] in [place] will try to obtain records. 6. History of diastolic congestive heart failure. Last echo completed December 2016. EF between 50 and 55%. Patient maintained on Lasix and Aldactone. 7. History of CAD. Patient underwent cardiac catheterization in August 2017, conclusion normal coronary artery angiogram, normal left ventricle end-diastolic pressure. 8. History of myasthenia gravis. Maintained on pyridostigmine. Follows with neurology outpatient. 9. History of diabetes mellitus type 2. Last hemoglobin A1c of 7.9 (from 10/26/18). Resume home insulin. Add sliding scale coverage 10. Hypertension essential. Resume home medications with parameters. 11. History of nonalcoholic liver cirrhosis 12. Chronic pain syndrome with morphine pump. Patient follows with Dr. Jernigan 13. History of obstructive sleep apnea. Unable to tolerate home CPAP, patient wears 2 L O2 as needed at home 14. History of seizure disorder. Maintain on Lamictal. Last seizure 2018 per patient. 15. History of GERD with reflux. Maintained on Pepcid and Protonix 16. History of former smoker 17. thrombocytopenia likely secondary to history of liver cirrhosis. Platelet count 94 18. Patient is complaining of uncontrolled pain in his upper back lower back and bilateral lower extremities at this time will add [place], patient should return to his pain specialist as outpatient for adjustment of his pain pump or further management of his chronic pain. DVT prophylaxis SCDs due to thrombocytopenia and anemia. GI prophylaxis Pepcid Protonix
[2019-05-12] MEDS: guaiFENesin 600 MG TABLET.ER PO PRN (12:52)
[2019-05-12] MEDS: SODIUM CHLORIDE 0.9% 1,000 ML IV SCH (13:52)
[2019-05-12] MEDS: HYDROCORTISONE 2.5% RECTAL CREAM 30 GM TUBE RECTAL SCH ×2 (13:54→21:43)
[2019-05-12] MEDS: ALBUTEROL NEBULIZED 2.5 MG/3 ML INHALATION PRN (15:54)
--- NOTE | 2019-05-12 17:39 | PN ---
PROGRESS NOTE DATE OF SERVICE: 05/12/2019 REASON FOR FOLLOW UP: Lower extremity cellulitis and tracheobronchitis. INTERVAL HISTORY: The patient is currently afebrile. The patient seems to be breathing more comfortably. The patient's cough has decreased in intensity and has been mostly dry in nature now. No nausea, vomiting, abdominal pain and no diarrhea. PHYSICAL EXAMINATION: Blood pressure is 103/54, pulse of 71, temperature 97.7, he is 95% on 2 L nasal cannula. General description is an elderly male up in the bed in no distress. Respiratory system: Unlabored breathing with decreased intensity in the breath sounds. No wheeze. Heart is S1, S2 regular rate and rhythm. Abdomen soft. No tenderness. Legs did have swelling and redness that has improved. LABS: Hemoglobin 8.1 with a white count of 6.9, BUN of 33, creatinine 1.01. DIAGNOSTIC IMPRESSION AND PLAN: 1. Patient admitted to the hospital with difficulty breathing in this patient who did have a component of chronic obstructive pulmonary disease associated with tracheobronchitis. negative for any pneumonia. Currently covered with Levaquin, steroids and bronchodilators and overall improvement in respiratory symptoms. 2. Lower extremity cellulitis, currently covered with of a CEPHALEXIN ALLERGY to continue along with Michael wrap for compression. 3. Continue supportive care. MMODL / IJN: [id number] /
[2019-05-12 17:45] LABS: Glucose,Whole Blood 179 mg/dL (75-99)
[2019-05-12] MEDS: LOPERAMIDE 2 MG CAP PO PRN (17:48)
--- NOTE | 2019-05-12 21:26 | PN ---
PROGRESS NOTE DATE OF VISIT: May 12, 2019. He continues to have some shortness of breath, but is less short of breath. Overall, he is sleeping and easily arousable. On physical examination his blood pressure 103/54, respiratory rate of 16, pulse rate of 71, temperature 97.7, O2 saturation on 2 L by nasal cannula is 95%. HEENT is unremarkable. Chest reveals scattered crackles. Cardiovascular system reveals an S1, S2. Abdomen is soft. There is no pedal edema. LABORATORY DATA: White count of 6.9, hemoglobin of 8.2. Sodium 134, potassium 4.2, chloride 103, bicarb 27, BUN 33, creatinine 1.01. IMPRESSION: At this time is: 1. Interstitial lung disease with chronic respiratory failure with an acute exacerbation. 2. Myasthenia gravis. 3. Obstructive sleep apnea. 4. Seizure disorder. 5. Congestive heart failure and coronary artery disease. Continue bronchodilators, antibiotics, steroids, Levaquin, increase his activity level. His prognosis is fair. MMODL / IJN: [id number] /
[2019-05-12] MEDS: LACTOBACILLUS ACIDOPH & BULGAR 1 EACH PACKET PO SCH (21:43)
[2019-05-12] MEDS: INSULIN DETEMIR (LEVEMIR) 100 UNIT/ML SYR SQ SCH (21:54)
[2019-05-12 22:03] LABS: Glucose,Whole Blood 208 mg/dL (75-99)
[2019-05-13] MEDS: CLINDAMYCIN 600 MG in DEXTROSE 5% IN WATER 50 ML IVPB SCH ×6 (01:16→16:13)
[2019-05-13] MEDS: PYRIDOSTIGMINE 60 MG TAB PO SCH ×6 (01:16→21:30)
[2019-05-13] MEDS: guaiFENesin 600 MG TABLET.ER PO PRN ×3 (01:16→21:30)
[2019-05-13] MEDS: HYDROcodone/APAP 7.5-325MG 1 EACH TAB PO PRN ×2 (01:17→09:05)
[2019-05-13 06:50] LABS: Glucose,Whole Blood 169 mg/dL (75-99)
[2019-05-13] MEDS: INSULIN ASPART (NovoLOG) 100 UNIT/ML VIAL SQ SCH ×6 (07:59→17:43)
[2019-05-13] MEDS: ISOSORBIDE MONONITRATE ER 30 MG TAB.ER.24H PO SCH (07:59)
[2019-05-13] MEDS: LOSARTAN 50 MG TAB PO SCH (08:00)
[2019-05-13] MEDS: predniSONE 20 MG TAB PO SCH (08:00)
[2019-05-13] MEDS: LACTOBACILLUS ACIDOPH & BULGAR 1 EACH PACKET PO SCH ×2 (08:00→23:47)
[2019-05-13] MEDS: SPIRONOLACTONE 25 MG TAB PO SCH (08:00)
[2019-05-13] MEDS: MAGNESIUM OXIDE 400 MG TAB PO SCH (08:00)
[2019-05-13] MEDS: FINASTERIDE 5 MG TAB PO SCH (08:00)
[2019-05-13] MEDS: MULTIVITAMINS, THERA 1 EACH TAB PO SCH (08:01)
[2019-05-13] MEDS: FAMOTIDINE 20 MG TAB PO SCH ×2 (08:01→21:30)
[2019-05-13] MEDS: PANTOPRAZOLE 40 MG TABLET PO SCH (08:01)
[2019-05-13] MEDS: CHOLECALCIFEROL 1,000 UNIT TAB PO SCH (08:01)
[2019-05-13] MEDS: FUROSEMIDE 40 MG TAB PO SCH ×2 (08:02→21:30)
[2019-05-13] MEDS: lamoTRIgine 100 MG TAB PO SCH ×2 (08:02→21:30)
[2019-05-13] MEDS: Lamivudine [Lamivudine] 300 MG PO SCH (08:02)
[2019-05-13] MEDS: CYANOCOBALAMIN 500 MCG TAB PO SCH (08:56)
[2019-05-13] MEDS: HYDROCORTISONE 2.5% RECTAL CREAM 30 GM TUBE RECTAL SCH ×2 (09:00→21:37)
[2019-05-13 09:31] LABS: Anisocytosis Slight; Basophils % (A) 0 %; Eosinophils % (A) 0 %; HCT 28.9 % (39.0-53.0); HGB 8.4 gm/dL (13.0-17.5); Hypochromasia Marked; Lymphocytes # (A) 0.8 k/uL (1.0-4.8); Lymphocytes % (A) 14 %; MCH 22.4 pg (25.0-35.0); MCHC 29.2 g/dL (31.0-37.0); MCV 76.8 fL (80.0-100.0); Mean Platelet Volume 6.8; Microcytosis Slight; Monocytes # (A) 0.4 k/uL (0-1.0); Monocytes % (A) 7 %; Neutrophils # (A) 4.2 k/uL (1.3-7.7); Neutrophils % (A) 76 %; Platelet Count 113 k/uL (150-450); RBC 3.76 m/uL (4.30-5.90); WBC 5.6 k/uL (3.8-10.6)
[2019-05-13 09:44] LABS: Albumin 3.4 g/dL (3.5-5.0); Calcium 9.4 mg/dL (8.4-10.2); Potassium 4.9 mmol/L (3.5-5.1); Total Bilirubin 0.7 mg/dL (0.2-1.3); Total Protein 5.9 g/dL (6.3-8.2)
--- NOTE | 2019-05-13 10:40 | P.PN ---
<Stephania West P - Last Filed: 05/13/19 10:27> Subjective Progress Note Date: 05/13/19 This is a 73-year-old male patient of Dr. Osorio who presents with worsening shortness of breath over the last couple days. He does mention that he noticed symptoms weeks ago but the last few days have been especially worse. Patient states that the shortness breath is exacerbated by exertion, he has some relief at rest. Patient has had a productive cough, with thick, yellow sputum. He states that he used [id number] cough suppressant which did give him some relief. Today he is sitting up in chair, in no acute distress. He is wearing 2 L of oxygen and states that he wears this at home as needed. He reports having chills at home and states that he has to wear several blankets at night. He also thinks he might have had a low-grade temp but has been afebrile since admission. He denies any chest pain, palpitations. He denies any nausea, vomiting, diarrhea. He denies any urinary frequency or burning. Past medical history includes: Myasthenia gravis, interstitial lung disease, CVA/TIA, diabetes mellitus, liver cirrhosis, myocardial infarction, hypothyroidism, obstructive sleep apnea, GERD with reflux, hearing disorder/deafness, hypertension hyperlipidemia, seizure disorder. On 05/11/2019 patient was seen and examined on the medical floor he is alert and oriented 3 in no apparent distress he is complaining of pain in his upper back, lower back, and both legs. He has a pain pump implanted however he states that his pain is not well controlled he is also still complaining of cough and shortness of breath especially with activity otherwise he denies any complaints there is no fever or chills no headache or dizziness no chest pain no nausea or vomiting no abdominal pain no diarrhea no burning was urination no frequency or urgency no hematuria.. On 05/12/2019 patient was seen and examined on the medical floor he is complaining of rectal bleeding that he relates to hemorrhoids he is complaining of back pain and he is still complaining of cough and shortness of breath and wheezing. Otherwise he denies any complaints there is no fever or chills no headache or dizziness no chest pain nausea or vomiting no abdominal pain no diarrhea no burning was urination no frequency or urgency no hematuria. On 05/13/2019 patient is feeling slightly improved today. Patient still complaining of some shortness of breath and cough. Patient maintained on Mucinex. Patient is alert and oriented 3. Stool for occult blood has been ordered. Patient having cough with positive sputum production. Patient denies chest pain. Patient denies nausea vomiting or diarrhea. Patient denies any urinary burning or frequency Objective - Vital Signs Vital signs: Vital Signs Temp 97.6 F 05/13/19 05:34 Pulse 67 05/13/19 05:34 Resp 16 05/13/19 05:34 BP 106/88 05/13/19 05:34 Pulse Ox 100 05/13/19 05:34 Intake & Output 05/12/19 05/13/19 05/13/19 18:59 06:59 18:59 Intake Total 150 50 Output Total 400 700 Balance -250 -650 Intake: Intake, IV Titration 150 50 Amount Clindamycin 600 mg In 50 50 Dextrose 5% in Water 50 ml @ 50 mls/hr IVPB Q8HR [facility] Rx#:[id number] Levofloxacin 500Mg-D5w 100 Pmx 500 mg In Dextrose/ Water 1 100ml.bag @ 100 mls/hr IVPB Q24H [facility] Rx#: [id number] Output: Urine 400 700 Other: Voiding Method Toilet Toilet Urinal Urinal # Voids 2 2 # Bowel Movements 2 - Exam In general patient is alert and oriented 3 in no apparent distress HEENT head normocephalic and atraumatic Neck is supple no JVD no goiter no lymphadenopathy Chest exam reveals a few scattered crackles no wheezing Cardiac exam reveals regular heart sounds no gallops no murmurs Abdomen is soft nontender no organomegaly with normal bowel sounds Extremity exam reveals 2+ edema with mild erythema and warmth in the pretibial areas Neurological examination reveals no gross focal deficit - Labs CBC & Chem 7: 05/13/19 08:41 05/13/19 08:41 Labs: Abnormal Lab Results - Last 24 Hours (Table) 05/12/19 05/12/19 05/12/19 Range/Units 10:54 17:34 21:55 RBC (4.30-5.90) m/uL Hgb (13.0-17.5) gm/dL Hct (39.0-53.0) % MCV (80.0-100.0) fL MCH (25.0-35.0) pg MCHC (31.0-37.0) g/dL RDW (11.5-15.5) % Plt Count (150-450) k/uL Lymphocytes # (1.0-4.8) k/uL Sodium (137-145) mmol/L BUN (9-20) mg/dL Creatinine (0.66-1.25) mg/dL Glucose (74-99) mg/dL POC Glucose (mg/dL) 251 H 179 H 208 H (75-99) mg/dL Total Protein (6.3-8.2) g/dL Albumin (3.5-5.0) g/dL 05/13/19 05/13/19 05/13/19 Range/Units 06:48 08:41 08:41 RBC 3.76 L (4.30-5.90) m/uL Hgb 8.4 L (13.0-17.5) gm/dL Hct 28.9 L (39.0-53.0) % MCV 76.8 L (80.0-100.0) fL MCH 22.4 L (25.0-35.0) pg MCHC 29.2 L (31.0-37.0) g/dL RDW 17.0 H (11.5-15.5) % Plt Count 113 L (150-450) k/uL Lymphocytes # 0.8 L (1.0-4.8) k/uL Sodium 134 L (137-145) mmol/L BUN 39 H (9-20) mg/dL Creatinine 1.37 H (0.66-1.25) mg/dL Glucose 148 H (74-99) mg/dL POC Glucose (mg/dL) 169 H (75-99) mg/dL Total Protein 5.9 L (6.3-8.2) g/dL Albumin 3.4 L (3.5-5.0) g/dL Microbiology - Last 24 Hours (Table) 05/12/19 20:39 Gram Stain - Preliminary Sputum Sputum Culture - Preliminary Assessment and Plan Assessment: 1. Dyspnea related to acute exacerbation of interstitial lung disease. Pulmonary service was consulted. Patient is on prednisone due to ALLERGY to Solu-Medrol. Chest x-ray obtained in ER, impression is moderate pulmonary interstitial fibrosis is unchanged. 2. Acute tracheobronchitis. Will start Levaquin. Sputum ordered. Mucinex added. 3. Lateral lower extremity cellulitis. Consulted ID services. Will wait for recommendations. Per ID patient has been started on clindamycin 4. History of interstitial lung disease/pulmonary fibrosis history of chronic hypoxemic respiratory failure. Patient is maintained on home O2 5. Iron deficiency anemia. Will order iron studies. Patient has required IV iron transfusions in the past. patient is having rectal bleeding at this time, which is mild and he relates it to hemorrhoids, will give local treatment, patient had a colonoscopy 2 weeks ago at the [facility] in [place] will try to obtain records. 6. History of diastolic congestive heart failure. Last echo completed December 2016. EF between 50 and 55%. Patient maintained on Lasix and Aldactone. 7. History of CAD. Patient underwent cardiac catheterization in August 2017, conclusion normal coronary artery angiogram, normal left ventricle end-diastolic pressure. 8. History of myasthenia gravis. Maintained on pyridostigmine. Follows with neurology outpatient. 9. History of diabetes mellitus type 2. Last hemoglobin A1c of 7.9 (from 10/26/18). Resume home insulin. Add sliding scale coverage 10. Hypertension essential. Resume home medications with parameters. 11. History of nonalcoholic liver cirrhosis 12. Chronic pain syndrome with morphine pump. Patient follows with Dr. Jernigan 13. History of obstructive sleep apnea. Unable to tolerate home CPAP, patient wears 2 L O2 as needed at home 14. History of seizure disorder. Maintain on Lamictal. Last seizure 2018 per patient. 15. History of GERD with reflux. Maintained on Pepcid and Protonix 16. History of former smoker 17. thrombocytopenia likely secondary to history of liver cirrhosis. Platelet count 94 18. Patient is complaining of uncontrolled pain in his upper back lower back and bilateral lower extremities at this time will add [place], patient should return to his pain specialist as outpatient for adjustment of his pain pump or f urther management of his chronic pain. 18. Acute kidney injury. Creatinine elevated at 1.37 we'll continue to monitor at this time DVT prophylaxis SCDs due to thrombocytopenia and anemia. GI prophylaxis Pepcid Protonix I performed an examination of the patient and discussed their management with the Nurse Practitioner. I have reviewed the Nurse Practitioner's notes and agree with the documented findings and plan of care <Josr Osorio - Last Filed: 05/16/19 10:03> Objective - Vital Signs Vital signs: Vital Signs Temp 98.4 F 05/16/19 04:31 Pulse 66 05/16/19 04:31 Resp 16 05/16/19 04:31 BP 127/61 05/16/19 04:31 Pulse Ox 100 05/16/19 04:31 Intake & Output 05/15/19 05/16/19 05/16/19 18:59 06:59 18:59 Intake Total 1080 1080 Output Total 700 Balance 380 1080 Intake: Oral 1080 1080 Output: Urine 700 Other: Voiding Method Toilet Toilet Toilet Urinal Urinal Urinal # Voids 4 3 # Bowel Movements 2 - Labs CBC & Chem 7: 05/16/19 07:20 05/16/19 02:24 Labs: Abnormal Lab Results - Last 24 Hours (Table) 05/15/19 05/15/19 05/15/19 Range/Units 11: 17:17 20:32 RBC (4.30-5.90) m/uL Hgb (13.0-17.5) gm/dL Hct (39.0-53.0) % MCV (80.0-100.0) fL MCH (25.0-35.0) pg MCHC (31.0-37.0) g/dL RDW (11.5-15.5) % Plt Count (150-450) k/uL Lymphocytes # (1.0-4.8) k/uL Sodium (137-145) mmol/L Chloride (98-107) mmol/L BUN (9-20) mg/dL Glucose (74-99) mg/dL POC Glucose (mg/dL) 312 H 262 H 309 H (75-99) mg/dL Total Protein (6.3-8.2) g/dL 05/16/19 05/16/19 05/16/19 Range/Units 02:24 02:24 06:57 RBC 3.66 L (4.30-5.90) m/uL Hgb 8.3 L (13.0-17.5) gm/dL Hct 28.5 L (39.0-53.0) % MCV 77.9 L (80.0-100.0) fL MCH 22.8 L (25.0-35.0) pg MCHC 29.3 L (31.0-37.0) g/dL RDW 16.3 H (11.5-15.5) % Plt Count 120 L (150-450) k/uL Lymphocytes # 0.4 L (1.0-4.8) k/uL Sodium 129 L (137-145) mmol/L Chloride 97 L (98-107) mmol/L BUN 47 H (9-20) mg/dL Glucose 250 H (74-99) mg/dL POC Glucose (mg/dL) 244 H (75-99) mg/dL Total Protein 6.1 L (6.3-8.2) g/dL 05/16/19 Range/Units 07:20 RBC 3.77 L (4.30-5.90) m/uL Hgb 8.2 L (13.0-17.5) gm/dL Hct 28.4 L (39.0-53.0) % MCV 75.4 L (80.0-100.0) fL MCH 21.8 L (25.0-35.0) pg MCHC 28.9 L (31.0-37.0) g/dL RDW 16.8 H (11.5-15.5) % Plt Count 117 L (150-450) k/uL Lymphocytes # 0.4 L (1.0-4.8) k/uL Sodium (137-145) mmol/L Chloride (98-107) mmol/L BUN (9-20) mg/dL Glucose (74-99) mg/dL POC Glucose (mg/dL) (75-99) mg/dL Total Protein (6.3-8.2) g/dL Assessment and Plan Assessment: continue hydrocortisone cream for hemorrhoids
[2019-05-13 11:05] LABS: Glucose,Whole Blood 193 mg/dL (75-99)
[2019-05-13] MEDS: LEVOFLOXACIN 500MG-D5W PMX 500 MG in DEXTROSE/WATER 1 100ML.BAG IVPB SCH (12:31)
[2019-05-13] MEDS: LOPERAMIDE 2 MG CAP PO PRN ×2 (13:21→23:48)
--- NOTE | 2019-05-13 15:17 | PN ---
PROGRESS NOTE DATE OF SERVICE: 05/13/2019 REASON FOR FOLLOWUP: 1. Possible tracheobronchitis. 2. Lower extremity cellulitis. INTERVAL HISTORY: The patient is currently afebrile. The patient is breathing comfortably. Cough has decreased in intensity and is less now. No chest pain. No nausea, vomiting, abdominal pain. Still has swelling in the leg. The patient refused his Michael wrap as apparently it was hurting him. PHYSICAL EXAMINATION: Blood pressure 109/55 with a pulse of 61, temperature 98.4, he is 96% on room air. General description is an elderly male, up in the chair in no distress. RESPIRATORY SYSTEM: Unlabored breathing, coarse breath sounds, bilaterally, occasional wheeze. HEART: S1, S2. Regular rate and rhythm. ABDOMEN: Soft. Bilateral leg with swelling, minimal redness, slightly warm to touch. No open wound or drainage. LABS: Hemoglobin 8.4, white count of 5.6, BUN of 39, creatinine is 1.37. DIAGNOSTIC IMPRESSION AND PLAN: 1. Patient in the hospital with difficulty breathing, which is likely multifactorial, possible tracheobronchitis. The patient is currently covered with steroids, bronchodilators and Levaquin. 2. Patient with lower extremity cellulitis, mild. Currently covered with daptomycin because of his allergy. Will monitor his clinical course closely. Continue supportive care. MMODL / IJN: [id number] /
[2019-05-13] MEDS: SODIUM CHLORIDE 0.9% 1,000 ML IV SCH (15:41)
[2019-05-13 17:06] LABS: Glucose,Whole Blood 308 mg/dL (75-99)
[2019-05-13 20:35] LABS: Glucose,Whole Blood 224 mg/dL (75-99)
[2019-05-13] MEDS: INSULIN DETEMIR (LEVEMIR) 100 UNIT/ML SYR SQ SCH (21:29)
[2019-05-14] MEDS: PYRIDOSTIGMINE 60 MG TAB PO SCH ×7 (00:43→23:49)
[2019-05-14] MEDS: CLINDAMYCIN 600 MG in DEXTROSE 5% IN WATER 50 ML IVPB SCH ×6 (00:43→16:18)
[2019-05-14] MEDS: HYDROcodone/APAP 7.5-325MG 1 EACH TAB PO PRN ×2 (03:11→13:26)
[2019-05-14 06:44] LABS: Glucose,Whole Blood 139 mg/dL (75-99)
[2019-05-14 07:51] LABS: Anisocytosis Slight; Basophils % (A) 1 %; Eosinophils % (A) 0 %; HCT 29.7 % (39.0-53.0); HGB 8.7 gm/dL (13.0-17.5); Hypochromasia Marked; Lymphocytes # (A) 0.9 k/uL (1.0-4.8); Lymphocytes % (A) 14 %; MCH 22.5 pg (25.0-35.0); MCHC 29.4 g/dL (31.0-37.0); MCV 76.6 fL (80.0-100.0); Mean Platelet Volume 6.3; Microcytosis Slight; Monocytes # (A) 0.5 k/uL (0-1.0); Monocytes % (A) 8 %; Neutrophils # (A) 4.8 k/uL (1.3-7.7); Neutrophils % (A) 75 %; Platelet Count 108 k/uL (150-450); RBC 3.88 m/uL (4.30-5.90); RDW 16.9 % (11.5-15.5); WBC 6.5 k/uL (3.8-10.6)
[2019-05-14 08:02] LABS: Albumin 3.7 g/dL (3.5-5.0); Calcium 9.7 mg/dL (8.4-10.2); Potassium 4.9 mmol/L (3.5-5.1); Total Bilirubin 0.9 mg/dL (0.2-1.3); Total Protein 6.4 g/dL (6.3-8.2)
[2019-05-14] MEDS: INSULIN ASPART (NovoLOG) 100 UNIT/ML VIAL SQ SCH ×6 (08:36→18:06)
[2019-05-14] MEDS: PANTOPRAZOLE 40 MG TABLET PO SCH (08:37)
[2019-05-14] MEDS: ISOSORBIDE MONONITRATE ER 30 MG TAB.ER.24H PO SCH (08:37)
[2019-05-14] MEDS: MAGNESIUM OXIDE 400 MG TAB PO SCH (08:38)
[2019-05-14] MEDS: FUROSEMIDE 40 MG TAB PO SCH ×2 (08:38→21:55)
[2019-05-14] MEDS: predniSONE 20 MG TAB PO SCH (08:38)
[2019-05-14] MEDS: SPIRONOLACTONE 25 MG TAB PO SCH (08:39)
[2019-05-14] MEDS: MULTIVITAMINS, THERA 1 EACH TAB PO SCH (08:39)
[2019-05-14] MEDS: FAMOTIDINE 20 MG TAB PO SCH ×2 (08:39→21:56)
[2019-05-14] MEDS: CYANOCOBALAMIN 500 MCG TAB PO SCH (08:41)
[2019-05-14] MEDS: LACTOBACILLUS ACIDOPH & BULGAR 1 EACH PACKET PO SCH ×2 (08:42→21:57)
[2019-05-14] MEDS: FINASTERIDE 5 MG TAB PO SCH (08:42)
[2019-05-14] MEDS: lamoTRIgine 100 MG TAB PO SCH ×2 (08:43→21:57)
[2019-05-14] MEDS: CHOLECALCIFEROL 1,000 UNIT TAB PO SCH (08:44)
[2019-05-14] MEDS: LOSARTAN 50 MG TAB PO SCH (08:44)
[2019-05-14] MEDS: Lamivudine [Lamivudine] 300 MG PO SCH (08:44)
[2019-05-14] MEDS: HYDROCORTISONE 2.5% RECTAL CREAM 30 GM TUBE RECTAL SCH ×2 (08:47→21:00)
--- NOTE | 2019-05-14 09:45 | CDI ---
Documentation Clarification Form Date: 05/14/2019 9:29:10 AM From: Genevieve JOYCELYN Fernandez, CCDS Admit Date: 05/11/2019 5:13:00 PM Patient Name: Duke Sánchez Visit Number: [id number] Discharge Date: ATTENTION: The Clinical Documentation Specialists (CDI) and [facility] Coding Staff appreciate your assistance in clarifying documentation. Please respond to the clarification below the line at the bottom and electronically sign. The CDI & [facility] Coding staff will review the response and follow-up if needed. Please note: Queries are made part of the Legal Health Record. If you have any questions, please contact the author of this message via ITS. Dr. Josr Osorio: There is conflicting documentation regarding the acuity of CHF. Per the History & Physical: "History of diastolic congestive heart failure." Per the Pulmonary consult: "Diastolic heart failure acute on chronic." History/Risk Factors: Chronic hypoxic respiratory failure, Pulmonary fibrosis, Chronic Diastolic CHF, Morbid obesity, TALIA, Myasthenia gravis, Hypertension & Hypertensive cardiovascular disease, Chronic liver disease. Clinical Indicators: Presented with SOB, productive cough with thick, yellow sputum, Bilateral lower extremities 4+ edema. Diagnosed with pulmonary fibrosis, Acute on chronic hypoxic respiratory failure & Acute bronchitis. Wears 2L O2 at home prn VS: P 79, R 22 (cough), BP 135/53, PO 97 RA - 97 2Lnc BNP: 241 Echocardiogram Results: No current. Previous from 12/12/2016: EF 50-55%, systolic low normal, Mild aortic valve sclerosis, Mild MR. Chest X Ray 05/09: Moderate pulmonary interstitial fibrosis, unchanged, normal heart. Treatment: po Lasix 40 mg 05/10. IV antibiotics: Levaquin, Clindamycin. INH Albuterol, O2 2Lnc, IV MagSulfate. In your professional opinion, can you please clarify the acuity of the patient's documented diastolic CHF if known? Acute Chronic Acute on Chronic Unable to Determine Other, please specify (Last Revision: October 2017) chronic diastolic CHF MTDD
--- NOTE | 2019-05-14 09:51 | P.PN ---
<Stephania West P - Last Filed: 05/14/19 09:48> Subjective Progress Note Date: 05/14/19 This is a 73-year-old male patient of Dr. Osorio who presents with worsening shortness of breath over the last couple days. He does mention that he noticed symptoms weeks ago but the last few days have been especially worse. Patient states that the shortness breath is exacerbated by exertion, he has some relief at rest. Patient has had a productive cough, with thick, yellow sputum. He states that he used [id number] cough suppressant which did give him some relief. Today he is sitting up in chair, in no acute distress. He is wearing 2 L of oxygen and states that he wears this at home as needed. He reports having chills at home and states that he has to wear several blankets at night. He also thinks he might have had a low-grade temp but has been afebrile since admission. He denies any chest pain, palpitations. He denies any nausea, vomiting, diarrhea. He denies any urinary frequency or burning. Past medical history includes: Myasthenia gravis, interstitial lung disease, CVA/TIA, diabetes mellitus, liver cirrhosis, myocardial infarction, hypothyroidism, obstructive sleep apnea, GERD with reflux, hearing disorder/deafness, hypertension hyperlipidemia, seizure disorder. On 05/11/2019 patient was seen and examined on the medical floor he is alert and oriented 3 in no apparent distress he is complaining of pain in his upper back, lower back, and both legs. He has a pain pump implanted however he states that his pain is not well controlled he is also still complaining of cough and shortness of breath especially with activity otherwise he denies any complaints there is no fever or chills no headache or dizziness no chest pain no nausea or vomiting no abdominal pain no diarrhea no burning was urination no frequency or urgency no hematuria.. On 05/12/2019 patient was seen and examined on the medical floor he is complaining of rectal bleeding that he relates to hemorrhoids he is complaining of back pain and he is still complaining of cough and shortness of breath and wheezing. Otherwise he denies any complaints there is no fever or chills no headache or dizziness no chest pain nausea or vomiting no abdominal pain no diarrhea no burning was urination no frequency or urgency no hematuria. On 05/13/2019 patient is feeling slightly improved today. Patient still complaining of some shortness of breath and cough. Patient maintained on Mucinex. Patient is alert and oriented 3. Stool for occult blood has been ordered. Patient having cough with positive sputum production. Patient denies chest pain. Patient denies nausea vomiting or diarrhea. Patient denies any urinary burning or frequency 05/14/2019 patient is still having some shortness of breath with sputum produc tion. Patient reports that he is having some blood in stool likely from hemorrhoids. Patient reports he had colonoscopy approximately 3 weeks ago [place]. Stool for occult blood have been ordered. Patient remains on antibiotics per ID and pulmonary services following. Patient denies chest pain. Patient denies any nausea or vomiting. Patient denies any urinary burning or frequency Objective - Vital Signs Vital signs: Vital Signs Temp 98.0 F 05/14/19 04:58 Pulse 69 05/14/19 04:58 Resp 20 05/14/19 04:58 BP 153/69 05/14/19 04:58 Pulse Ox 99 05/14/19 04:58 Intake & Output 05/13/19 05/14/19 05/14/19 18:59 06:59 18:59 Intake Total 150 530 Balance 150 530 Intake: Intake, IV Titration 150 50 Amount Clindamycin 600 mg In 50 50 Dextrose 5% in Water 50 ml @ 50 mls/hr IVPB Q8HR [facility] Rx#:[id number] Levofloxacin 500Mg-D5w 100 Pmx 500 mg In Dextrose/ Water 1 100ml.bag @ 100 mls/hr IVPB Q24H [facility] Rx#: [id number] Oral 480 Other: Voiding Method Toilet Toilet Urinal Urinal # Voids 3 4 # Bowel Movements 1 4 - Exam In general patient is alert and oriented 3 in no apparent distress HEENT head normocephalic and atraumatic Neck is supple no JVD no goiter no lymphadenopathy Chest exam reveals a few scattered crackles no wheezing Cardiac exam reveals regular heart sounds no gallops no murmurs Abdomen is soft nontender no organomegaly with normal bowel sounds Extremity exam reveals 2+ edema with mild erythema and warmth in the pretibial areas Neurological examination reveals no gross focal deficit - Labs CBC & Chem 7: 05/14/19 06:43 05/14/19 06:43 Labs: Abnormal Lab Results - Last 24 Hours (Table) 05/13/19 05/13/19 05/13/19 Range/Units 11:04 17:03 20:33 RBC (4.30-5.90) m/uL Hgb (13.0-17.5) gm/dL Hct (39.0-53.0) % MCV (80.0-100.0) fL MCH (25.0-35.0) pg MCHC (31.0-37.0) g/dL RDW (11.5-15.5) % Plt Count (150-450) k/uL Lymphocytes # (1.0-4.8) k/uL Sodium (137-145) mmol/L BUN (9-20) mg/dL Creatinine (0.66-1.25) mg/dL Glucose (74-99) mg/dL POC Glucose (mg/dL) 193 H 308 H 224 H (75-99) mg/dL 05/14/19 05/14/19 05/14/19 Range/Units 06:42 06:43 06:43 RBC 3.88 L (4.30-5.90) m/uL Hgb 8.7 L (13.0-17.5) gm/dL Hct 29.7 L (39.0-53.0) % MCV 76.6 L (80.0-100.0) fL MCH 22.5 L (25.0-35.0) pg MCHC 29.4 L (31.0-37.0) g/dL RDW 16.9 H (11.5-15.5) % Plt Count 108 L (150-450) k/uL Lymphocytes # 0.9 L (1.0-4.8) k/uL Sodium 134 L (137-145) mmol/L BUN 47 H (9-20) mg/dL Creatinine 1.32 H (0.66-1.25) mg/dL Glucose 111 H (74-99) mg/dL POC Glucose (mg/dL) 139 H (75-99) mg/dL Microbiology - Last 24 Hours (Table) 05/12/19 20:39 Gram Stain - Final Sputum Sputum Culture - Final Assessment and Plan Assessment: 1. Dyspnea related to acute exacerbation of interstitial lung disease and acute tracheobronchitis. Pulmonary service was consulted. Patient is on prednisone due to ALLERGY to Solu-Medrol. Chest x-ray obtained in ER, impression is moderate pulmonary interstitial fibrosis is unchanged. Urinary services following 2. Acute tracheobronchitis. Will start Levaquin. Sputum ordered. Mucinex added. 3. Lateral lower extremity cellulitis. Consulted ID services. Will wait for recommendations. Per ID patient has been started on clindamycin 4. History of interstitial lung disease/pulmonary fibrosis history of chronic hypoxemic respiratory failure. Patient is maintained on home O2 5. Iron deficiency anemia with blood in stool noted per patient. Will order iron studies. Patient has required IV iron transfusions in the past. patient is having rectal bleeding at this time, which is mild and he relates it to hemorrhoids, will give local treatment, patient had a colonoscopy 2 weeks ago [place] the [place] will try to obtain records. 6. History of diastolic congestive heart failure. Last echo completed December 2016. EF between 50 and 55%. Patient maintained on Lasix and Aldactone. 7. History of CAD. Patient underwent cardiac catheterization in August 2017, conclusion normal coronary artery angiogram, normal left ventricle end-diastolic pressure. 8. History of myasthenia gravis. Maintained on pyridostigmine. Follows with neurology outpatient. 9. History of diabetes mellitus type 2. Last hemoglobin A1c of 7.9 (from 10/26/18). Resume home insulin. Add sliding scale coverage 10. Hypertension essential. Resume home medications with parameters. 11. History of nonalcoholic liver cirrhosis 12. Chronic pain syndrome with morphine pump. Patient follows with Dr. Jernigan 13. History of obstructive sleep apnea. Unable to tolerate home CPAP, patient wears 2 L O2 as needed at home 14. History of seizure disorder. Maintain on Lamictal. Last seizure 2017 per patient. 15. History of GERD with reflux. Maintained on Pepcid and Protonix 16. History of former smoker 17. thrombocytopenia likely secondary to history of liver cirrhosis. 18. Patient is complaining of uncontrolled pain in his upper back lower back and bilateral lower extremities at this time will add [place], patient should return to his pain specialist as outpatient for adjustment of his pain pump or further management of his chronic pain. 18. Acute kidney injury. Creatinine elevated at 1.37 we'll continue to monitor at this time. Creatinine trending down DVT prophylaxis SCDs due blood in stool and anemia. GI prophylaxis Pepcid Protonix I performed an examination of the patient and discussed their management with the Nurse Practitioner. I have reviewed the Nurse Practitioner's notes and agree with the documented findings and plan of care <Namrata Osoriod - Last Filed: 05/16/19 09:43> Objective - Vital Signs Vital signs: Vital Signs Temp 98.4 F 05/16/19 04:31 Pulse 66 05/16/19 04:31 Resp 16 05/16/19 04:31 BP 127/61 05/16/19 04:31 Pulse Ox 100 05/16/19 04:31 Intake & Output 05/15/19 05/16/19 05/16/19 18:59 06:59 18:59 Intake Total 1080 1080 Output Total 700 Balance 380 1080 Intake: Oral 1080 1080 Output: Urine 700 Other: Voiding Method Toilet Toilet Toilet Urinal Urinal Urinal # Voids 4 3 # Bowel Movements 2 - Labs CBC & Chem 7: 05/16/19 07:20 05/16/19 02:24 Labs: Abnormal Lab Results - Last 24 Hours (Table) 05/15/19 05/15/19 05/15/19 Range/Units : 17:17 20:32 RBC (4.30-5.90) m/uL Hgb (13.0-17.5) gm/dL Hct (39.0-53.0) % MCV (80.0-100.0) fL MCH (25.0-35.0) pg MCHC (31.0-37.0) g/dL RDW (11.5-15.5) % Plt Count (150-450) k/uL Lymphocytes # (1.0-4.8) k/uL Sodium (137-145) mmol/L Chloride (98-107) mmol/L BUN (9-20) mg/dL Glucose (74-99) mg/dL POC Glucose (mg/dL) 312 H 262 H 309 H (75-99) mg/dL Total Protein (6.3-8.2) g/dL 05/16/19 05/16/19 05/16/19 Range/Units 02:24 02:24 06:57 RBC 3.66 L (4.30-5.90) m/uL Hgb 8.3 L (13.0-17.5) gm/dL Hct 28.5 L (39.0-53.0) % MCV 77.9 L (80.0-100.0) fL MCH 22.8 L (25.0-35.0) pg MCHC 29.3 L (31.0-37.0) g/dL RDW 16.3 H (11.5-15.5) % Plt Count 120 L (150-450) k/uL Lymphocytes # 0.4 L (1.0-4.8) k/uL Sodium 129 L (137-145) mmol/L Chloride 97 L (98-107) mmol/L BUN 47 H (9-20) mg/dL Glucose 250 H (74-99) mg/dL POC Glucose (mg/dL) 244 H (75-99) mg/dL Total Protein 6.1 L (6.3-8.2) g/dL 05/16/19 Range/Units 07:20 RBC 3.77 L (4.30-5.90) m/uL Hgb 8.2 L (13.0-17.5) gm/dL Hct 28.4 L (39.0-53.0) % MCV 75.4 L (80.0-100.0) fL MCH 21.8 L (25.0-35.0) pg MCHC 28.9 L (31.0-37.0) g/dL RDW 16.8 H (11.5-15.5) % Plt Count 117 L (150-450) k/uL Lymphocytes # 0.4 L (1.0-4.8) k/uL Sodium (137-145) mmol/L Chloride (98-107) mmol/L BUN (9-20) mg/dL Glucose (74-99) mg/dL POC Glucose (mg/dL) (75-99) mg/dL Total Protein (6.3-8.2) g/dL Assessment and Plan Assessment: Patient has known allergy to solumedrol maintained on prednisone, pulmonary services following
[2019-05-14 11:32] LABS: Glucose,Whole Blood 220 mg/dL (75-99)
[2019-05-14] MEDS: SODIUM CHLORIDE 0.9% 1,000 ML IV SCH (12:42)
[2019-05-14] MEDS: LEVOFLOXACIN 500MG-D5W PMX 500 MG in DEXTROSE/WATER 1 100ML.BAG IVPB SCH (12:56)
--- NOTE | 2019-05-14 13:28 | PN ---
PROGRESS NOTE He was seen on 05/14/2019. He has some increase in his shortness of breath. PHYSICAL EXAMINATION: On physical examination, his respiratory rate is 17, pulse rate of 71, temperature 97.1, blood pressure 124/58, O2 saturation on 2 L by nasal cannula is 96%. HEENT is unremarkable. Chest reveals expiratory wheeze. Cardiovascular system reveals an S1, S2. Abdomen is soft. There is no edema. IMPRESSION AT THIS TIME: 1. Lung fibrosis. 2. Bronchospasm secondary to asthma and chronic obstructive pulmonary disease with acute exacerbation. 3. Myasthenia gravis. May need to give him 2 extra doses of Solu-Medrol today. Continue his prednisone. Increase his activity level. Depending on how he does, we should make further changes to his care. VIPUL / CLARISAN: [id number] /
[2019-05-14] MEDS: LOPERAMIDE 2 MG CAP PO PRN (16:25)
[2019-05-14 17:17] LABS: Glucose,Whole Blood 293 mg/dL (75-99)
[2019-05-14] MEDS ORDERED: methylPREDNISolone SOD SUCCI 125 MG/2 ML VIAL IV SCH (18:00)
[2019-05-14 19:50] LABS: Glucose,Whole Blood 371 mg/dL (75-99)
[2019-05-14] MEDS: INSULIN DETEMIR (LEVEMIR) 100 UNIT/ML SYR SQ SCH (21:57)
[2019-05-14] MEDS: guaiFENesin 600 MG TABLET.ER PO PRN (22:23)
--- NOTE | 2019-05-14 23:31 | P.CONS ---
History of Present Illness - Reason for Consult Consult date: 05/14/19 Blood per rectum Requesting physician: Josr Osorio - Chief Complaint Shortness of breath - History of Present Illness 73-year-old male with multiple medical comorbidities including myasthenia gravis, interstitial lung disease, CVA, diabetes mellitus, liver disease, myocar dial infarction, hypothyroidism, obstructive sleep apnea, GERD, hearing impairment, hypertension, hyperlipidemia and seizure disorder who presented to the hospital due to worsening shortness of breath. Currently the patient is receiving treatment for an acute tracheobronchitis an exacerbation of his interstitial lung disease. During his hospitalization the patient has reported some bright red blood per rectum. The patient reports intermittent episodes of blood per rectum which going on for years. Previously he had undergone EGD and colonoscopy at this hospital with colonoscopy significant for internal hemorrhoids and a poor prep and EGD significant for Lisbeth esophagitis and varices in 2017. Approximate 2 weeks ago at the [facility] in [place] the patient underwent a colonoscopy significant for polypectomy performed for diarrhea. He reports that he suffers from chronic diarrhea at baseline. He will use multiple tabs of Imodium as needed for treatment of his diarrhea with improvement in his bowel consistency with the Imodium. He also states that during exacerbations of his episodes of blood per rectum he will use Preparation H. Review of Systems REVIEW OF SYSTEMS: CONSTITUTIONAL: Denies any fevers, chills, weight change or fatigue. CARDIOVASCULAR: Denies any chest pain, palpitations high or low blood pressures RESPIRATORY: Reports shortness of breath with cough and sputum production. GENITOURINARY: No dysuria or hematuria. MUSCULOSKELETAL: No weakness reported. SKIN: Denies any new rashes or lesions, jaundice or pallor. PSYCHIATRIC: Denies any depression or anxiety. NEUROLOGY: Denies headache, denies any new focal deficits have a history of myasthenia gravis. EARS/NOSE/THROAT: No recent hearing change but he is hard of hearing at baseline, congestion, nasal discharge or sore throat. EYES: No pain in eyes, discharge or change in vision. GASTROINTESTINAL: As per HPI. Past Medical History Past Medical History: COPD, CVA/TIA, Diabetes Mellitus, Eye Disorder, G ERD/Reflux, Hearing Disorder / Deafness, Hyperlipidemia, Hypertension, Liver Disease, Memory Impairment, Pneumonia, Prostate Disorder, Seizure Disorder, Sleep Apnea/CPAP/BIPAP, Thyroid Disorder Additional Past Medical History / Comment(s): Pulmonary fibrosis, COPD, diabetes mellitus, photophobia, impaired hearing, hyperlipidemia, hypertension, liver cirrhosis, BPH, peripheral neuropathy, chronic back pain, chronic cervical pain, difficulty with swallowing, myasthenia gravis, chronic constipation, chronic anemia, history of esophageal and gastric varices related to chronic liver disease, splenomegaly, obstructive sleep apnea and the patient has not been utilizing CPAP treatment. Last Myocardial Infarction Date:: 1989 History of Any Multi-Drug Resistant Organisms: VRE Year Discovered:: 05/09/18 MDRO Source:: VRE URINE Past Surgical History: Heart Catheterization, Hernia Repair, Orthopedic Surgery, Tonsillectomy Additional Past Surgical History / Comment(s): EGDs/colonoscopies, RT GREAT TOE JOINT replaced, RT SHOULDER rotator cuff repair. rt and left cataract removals with lens implants, bilateral inguinal hernia repairs & hydrocele repair Past Anesthesia/Blood Transfusion Reactions: Motion Sickness Additional Past Anesthesia/Blood Transfusion Reaction / Comm: no hx blood transfusion Past Psychological History: Depression Additional Psychological History / Comment(s): Pt now has his son and son's spouse and 6 children living with him. He uses a cane to ambulate or a walker or scooter. He drives but his car is broken down. He has his son push him in a wheelchair to appts. 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 He has home oxygen and a glucometer. Smoking Status: Former smoker Past Alcohol Use History: None Reported Additional Past Alcohol Use History / Comment(s): quit smoking approx 50 yrs ago,smoked in -very short time and little amount Past Drug Use History: None Reported - Past Family History Mother Family Medical History: Liver Disease, Pneumonia Additional Family Medical History / Comment(s): alcoholism Father Family Medical History: Cancer Additional Family Medical History / Comment(s): Father had lung cancer with mets to brain. He was a nonsmoker but his spouse smoked in the house. Medications and Allergies Home Medications Medication Instructions Recorded Confirmed Type Finasteride [Proscar] 5 mg PO DAILY 04/14/15 05/09/19 History Furosemide [Lasix] 40 mg PO BID 04/14/15 05/09/19 History Insulin Glargine [Lantus] 45 unit SQ HS 04/14/15 05/09/19 History Nitroglycerin Sl Tabs [Nitrostat] 0.4 mg SUBLINGUAL Q5M PRN #50 tab 09/22/16 05/09/19 Rx Losartan [Cozaar] 50 mg PO DAILY 04/04/17 05/09/19 History Pyridostigmine [place] [Mestinon] 60 mg PO Q4H 04/04/17 05/09/19 History Ranitidine HCl [Zantac] 150 mg PO BID 04/04/17 05/09/19 History Insulin Aspart [NovoLOG] See Protocol SQ AC-TID 08/02/17 05/09/19 History Isosorbide Mononitrate ER [Imdur] 90 mg PO DAILY 08/02/17 05/09/19 History Magnesium Oxide [Mag-Ox] 400 mg PO DAILY 08/02/17 05/09/19 History Pantoprazole Sodium [Protonix] 40 mg PO DAILY 08/02/17 05/09/19 History lamoTRIgine [LaMICtal] 100 mg PO BID 08/02/17 05/09/19 History Spironolactone 75 mg PO DAILY 08/29/18 05/09/19 History Albuterol Sulfate [Proair Hfa] 1 puff INHALATION RT-Q4H PRN 10/25/18 05/09/19 History Cholecalciferol [Vitamin D3 (25 1,000 unit PO DAILY 10/25/18 05/09/19 History Mcg = 1000 Iu)] Morphine Pain Pump 1 dose INTRATHECA CONTINUOUS 10/25/18 05/09/19 History lamiVUDine [Lamivudine] 300 mg PO DAILY 10/25/18 05/09/19 History INSULIN ASPART (NovoLOG) [NovoLOG 3 unit SQ AC-TID vial 11/03/18 05/09/19 Rx (formulary)] Cyanocobalamin [Vitamin B-12] 500 mcg PO DAILY 05/09/19 05/09/19 History Loperamide [Imodium] 4 mg PO TID PRN 05/09/19 05/09/19 History Multivitamins, Thera [Multivitamin 1 tab PO DAILY 05/09/19 05/09/19 History (formulary)] Vitamin E 1,000 unit PO DAILY 05/09/19 05/09/19 History predniSONE 10 mg PO DAILY 05/09/19 05/09/19 History Allergies Allergy/AdvReac Type Severity Reaction Status Date / Time methylprednisolone acetate Allergy Severe Anaphylaxis Verified 05/09/19 21:21 [From Depo-Medrol] cephalexin [From Keflex] Allergy Rash/Hives Verified 05/09/19 21:21 cyclobenzaprine Allergy Unknown Verified 05/09/19 21:21 [From Flexeril] metformin Allergy Unknown Verified 05/09/19 21:21 methylprednisolone Allergy Rash/Hives Verified 05/09/19 21:21 [From Depo-Medrol] tolterodine [From Detrol] Allergy Unknown Verified 05/09/19 21:21 duloxetine [From Cymbalta] AdvReac Intense Verified 05/09/19 21:21 [place]ushing gabapentin [From Neurontin] AdvReac Tremors Verified 05/09/19 21:21 polyethylene glycol AdvReac Confusion Verified 05/09/19 21:21 [From Golytely] polyethylene glycol 3350 AdvReac Confusion Verified 05/09/19 21:21 [From Golytely] potassium chloride AdvReac Confusion Verified 05/09/19 21:21 [From Golytely] pregabalin [From Lyrica] AdvReac Intense Verified 05/09/19 21:21 [place] sodium [From Golytely] AdvReac Confusion Verified 05/09/19 21:21 sodium bicarbonate AdvReac Confusion Verified 05/09/19 21:21 [From Golytely] sodium chloride AdvReac Confusion Verified 05/09/19 21:21 [From Golytely] sodium sulfate AdvReac Confusion Verified 05/09/19 21:21 [From Golytely] sodium sulfate anhydrous AdvReac Confusion Verified 05/09/19 21:21 [From Golytely] Physical Exam Vitals: Vital Signs Temp Pulse Pulse Resp BP Pulse Ox 05/14/19 12:08 97.1 F L 71 17 124/58 96 05/14/19 04:58 98.0 F 69 20 153/69 99 05/13/19 21:00 97.4 F L 73 18 129/56 99 Intake and Output 05/14/19 05/14/19 05/14/19 06:59 14:59 22:59 Intake Total 530 Balance 530 Intake: Intake, IV Titration 50 Amount Clindamycin 600 mg In 50 Dextrose 5% in Water 50 ml @ 50 mls/hr IVPB Q8HR [facility] Rx#:[id number] Oral 480 Other: Voiding Method Toilet Urinal # Voids 4 # Bowel Movements 4 On physical examination, patient appears comfortable in no apparent distress. HEAD: Normocephalic, atraumatic. EYES: No scleral icterus. No conjunctival injection. MOUTH: No lesions, tongue midline. NECK: Trachea midline, no gross abnormalities. CHEST: Decreased air entry in all lung avalos. HEART: S1-S2 appreciated. ABDOMEN: Soft, obese. Bowel sounds are positive. No organomegaly. No guarding or rigidity. EXTREMITIES: No pedal edema. SKIN: No rashes, no jaundice. NEUROLOGIC: Alert and oriented x3. Results CBC & Chem 7: 05/14/19 06:43 05/14/19 06:43 Labs: Abnormal Lab Results - Last 24 Hours (Table) 05/13/19 05/13/19 05/14/19 Range/Units 17:03 20:33 06:42 RBC (4.30-5.90) m/uL Hgb (13.0-17.5) gm/dL Hct (39.0-53.0) % MCV (80.0-100.0) fL MCH (25.0-35.0) pg MCHC (31.0-37.0) g/dL RDW (11.5-15.5) % Plt Count (150-450) k/uL Lymphocytes # (1.0-4.8) k/uL Sodium (137-145) mmol/L BUN (9-20) mg/dL Creatinine (0.66-1.25) mg/dL Glucose (74-99) mg/dL POC Glucose (mg/dL) 308 H 224 H 139 H (75-99) mg/dL 05/14/19 05/14/19 05/14/19 Range/Units 06:43 06:43 11:30 RBC 3.88 L (4.30-5.90) m/uL Hgb 8.7 L (13.0-17.5) gm/dL Hct 29.7 L (39.0-53.0) % MCV 76.6 L (80.0-100.0) fL MCH 22.5 L (25.0-35.0) pg MCHC 29.4 L (31.0-37.0) g/dL RDW 16.9 H (11.5-15.5) % Plt Count 108 L (150-450) k/uL Lymphocytes # 0.9 L (1.0-4.8) k/uL Sodium 134 L (137-145) mmol/L BUN 47 H (9-20) mg/dL Creatinine 1.32 H (0.66-1.25) mg/dL Glucose 111 H (74-99) mg/dL POC Glucose (mg/dL) 220 H (75-99) mg/dL Microbiology - Last 24 Hours (Table) 05/12/19 20:39 Gram Stain - Final Sputum Sputum Culture - Final Assessment and Plan (1) Rectal bleeding Narrative/Plan: 73-year-old male with multiple medical comorbidities who presented to the hospital due to shortness of breath and is currently receiving treatment for acute tracheobronchitis an exacerbation of underlying interstitial lung disease. The patient reports episodes of rectal bleeding which have been chronic in nature in the past. At home he has used Preparation H therapy for treatment. Recent colonoscopy 2 weeks ago at the [facility] in [place] for evaluation of chronic diarrhea with significant for polypectomy. Previously he has undergone EGD and colonoscopy in 2017 with findings of Lisbeth esophagitis, varices and internal hemorrhoids. At this time suspicion is for perirectal disease secondary to hemorrhoids were previously seen on endoscopic evaluation and agree with the patient's local treatment. Current Visit: Yes Status: Acute Code(s): K62.5 - HEMORRHAGE OF ANUS AND RECTUM SNOMED Code(s): 70345446 (2) Microcytic anemia Narrative/Plan: Microcytic anemia likely multifactorial due to chronic disease with multiple medical comorbidities, cannot exclude a component of blood loss with the patient reported frequent rectal bleeding from hemorrhoids. No other acute signs or symptoms of GI bleeding such as melena or hematochezia reported. Current Visit: Yes Status: Acute Code(s): D50.9 - IRON DEFICIENCY ANEMIA, UNSPECIFIED SNOMED Code(s): 113671910 Plan: Supportive care Okay for diet Continue to monitor hemoglobin and transfuse as needed Agree with laboratory evaluation for iron deficiency and Okay to start iron supplementation is deficiency is found Extensive endoscopic history for evaluation of symptoms of rectal bleeding and chronic diarrhea in the past with EGD and colonoscopy in 2017 and recent colonoscopy 2 weeks ago at the [facility] in [place] No plans for endoscopic evaluation at this time Hydrocortisone topical therapy added for local hemorrhoidal treatment Continue current medical management of acute tracheobronchitis Continue Imodium as needed for chronic diarrhea Thank you for allowing us to participate in the care of the patient, the GI service will stand by, please call us back with any questions or concerns
--- NOTE | 2019-05-14 23:32 | PN ---
PROGRESS NOTE DATE OF SERVICE: 05/14/2019 REASON FOR FOLLOWUP: 1. Tracheobronchitis. 2. Lower extremity cellulitis. INTERVAL HISTORY: The patient is currently afebrile. The patient has been breathing comfortably. The patient did have some cough but was not bringing up any sputum. No nausea, no vomiting, no abdominal pain. Leg swelling persists. Redness has improved. PHYSICAL EXAMINATION: Blood pressure 112/53 with a pulse of 66, temperature 96.2. He is 98% on 2 L nasal cannula. General description is an elderly male up in the chair in no distress. RESPIRATORY SYSTEM: Unlabored breathing. Coarse breath sounds bilaterally. No wheeze. HEART: S1, S2. Regular rate and rhythm. ABDOMEN: Soft. No tenderness. Legs are currently wrapped up. No obvious drainage on the dressing. LABS: Hemoglobin 8.7, white count 6.5. BUN of 47, creatinine 1.32. Sputum has been usual respiratory brian. DIAGNOSTIC IMPRESSION AND PLAN: 1. Patient admitted to hospital with difficulty breathing in this patient who did have pulmonary fibrosis with concern for possible tracheobronchitis. Sputum has been usual respiratory brian and the patient is currently covered with Levaquin. 2. Patient with lower extremity swelling and concern for cellulitis, adequately treated, as overall redness has resolved. We will discontinue the clindamycin and continue with Michael wrap to keep the swelling down. Continue with supportive care. MMODL / IJN: [id number] /
[2019-05-15] MEDS: PYRIDOSTIGMINE 60 MG TAB PO SCH ×6 (04:07→23:39)
[2019-05-15 06:57] LABS: Glucose,Whole Blood 131 mg/dL (75-99)
[2019-05-15 07:49] LABS: Anisocytosis Slight; Basophils % (A) 0 %; Eosinophils % (A) 0 %; HCT 27.2 % (39.0-53.0); Hypochromasia Marked; Lymphocytes # (A) 0.9 k/uL (1.0-4.8); Lymphocytes % (A) 15 %; MCH 22.4 pg (25.0-35.0); MCHC 29.5 g/dL (31.0-37.0); MCV 75.8 fL (80.0-100.0); Mean Platelet Volume 7.5; Microcytosis Slight; Monocytes # (A) 0.4 k/uL (0-1.0); Monocytes % (A) 7 %; Neutrophils # (A) 4.7 k/uL (1.3-7.7); Neutrophils % (A) 76 %; Platelet Count 105 k/uL (150-450); RBC 3.59 m/uL (4.30-5.90); RDW 16.8 % (11.5-15.5); WBC 6.1 k/uL (3.8-10.6)
[2019-05-15 08:02] LABS: Albumin 3.3 g/dL (3.5-5.0); Calcium 9.4 mg/dL (8.4-10.2); Potassium 4.6 mmol/L (3.5-5.1); Total Bilirubin 0.8 mg/dL (0.2-1.3); Total Protein 5.7 g/dL (6.3-8.2)
[2019-05-15] MEDS: CHOLECALCIFEROL 1,000 UNIT TAB PO SCH (08:22)
[2019-05-15] MEDS: FUROSEMIDE 40 MG TAB PO SCH ×2 (08:22→20:39)
[2019-05-15] MEDS: ISOSORBIDE MONONITRATE ER 30 MG TAB.ER.24H PO SCH (08:22)
[2019-05-15] MEDS: FINASTERIDE 5 MG TAB PO SCH (08:22)
[2019-05-15] MEDS: FAMOTIDINE 20 MG TAB PO SCH ×2 (08:22→20:40)
[2019-05-15] MEDS: SPIRONOLACTONE 25 MG TAB PO SCH (08:23)
[2019-05-15] MEDS: MAGNESIUM OXIDE 400 MG TAB PO SCH (08:23)
[2019-05-15] MEDS: predniSONE 20 MG TAB PO SCH (08:23)
[2019-05-15] MEDS: LOSARTAN 50 MG TAB PO SCH (08:23)
[2019-05-15] MEDS: CYANOCOBALAMIN 500 MCG TAB PO SCH (08:23)
[2019-05-15] MEDS: INSULIN ASPART (NovoLOG) 100 UNIT/ML VIAL SQ SCH ×6 (08:24→17:32)
[2019-05-15] MEDS: MULTIVITAMINS, THERA 1 EACH TAB PO SCH (08:24)
[2019-05-15] MEDS: LEVOFLOXACIN 500 MG TAB PO SCH (08:24)
[2019-05-15] MEDS: lamoTRIgine 100 MG TAB PO SCH ×2 (08:24→20:40)
[2019-05-15] MEDS: LACTOBACILLUS ACIDOPH & BULGAR 1 EACH PACKET PO SCH ×2 (08:25→20:39)
[2019-05-15] MEDS: HYDROCORTISONE 1% CREAM 454 GM JAR TOPICAL SCH ×2 (08:25→20:59)
[2019-05-15] MEDS: PANTOPRAZOLE 40 MG TABLET PO SCH (08:27)
[2019-05-15] MEDS: HYDROCORTISONE 2.5% RECTAL CREAM 30 GM TUBE RECTAL SCH ×2 (08:28→20:39)
--- NOTE | 2019-05-15 10:31 | P.PN ---
<Stephania West P - Last Filed: 05/15/19 10:01> Subjective Progress Note Date: 05/15/19 This is a 73-year-old male patient of Dr. Osorio who presents with worsening shortness of breath over the last couple days. He does mention that he noticed symptoms weeks ago but the last few days have been especially worse. Patient states that the shortness breath is exacerbated by exertion, he has some relief at rest. Patient has had a productive cough, with thick, yellow sputum. He states that he used [id number] cough suppressant which did give him some relief. Today he is sitting up in chair, in no acute distress. He is wearing 2 L of oxygen and states that he wears this at home as needed. He reports having chills at home and states that he has to wear several blankets at night. He also thinks he might have had a low-grade temp but has been afebrile since admission. He denies any chest pain, palpitations. He denies any nausea, vomiting, diarrhea. He denies any urinary frequency or burning. Past medical history includes: Myasthenia gravis, interstitial lung disease, CVA/TIA, diabetes mellitus, liver cirrhosis, myocardial infarction, hypothyroidism, obstructive sleep apnea, GERD with reflux, hearing disorder/deafness, hypertension hyperlipidemia, seizure disorder. On 05/11/2019 patient was seen and examined on the medical floor he is alert and oriented 3 in no apparent distress he is complaining of pain in his upper back, lower back, and both legs. He has a pain pump implanted however he states that his pain is not well controlled he is also still complaining of cough and shortness of breath especially with activity otherwise he denies any complaints there is no fever or chills no headache or dizziness no chest pain no nausea or vomiting no abdominal pain no diarrhea no burning was urination no frequency or urgency no hematuria.. On 05/12/2019 patient was seen and examined on the medical floor he is complaining of rectal bleeding that he relates to hemorrhoids he is complaining of back pain and he is still complaining of cough and shortness of breath and wheezing. Otherwise he denies any complaints there is no fever or chills no headache or dizziness no chest pain nausea or vomiting no abdominal pain no diarrhea no burning was urination no frequency or urgency no hematuria. On 05/13/2019 patient is feeling slightly improved today. Patient still complaining of some shortness of breath and cough. Patient maintained on Mucinex. Patient is alert and oriented 3. Stool for occult blood has been ordered. Patient having cough with positive sputum production. Patient denies chest pain. Patient denies nausea vomiting or diarrhea. Patient denies any urinary burning or frequency 05/14/2019 patient is still having some shortness of breath with sputum produc tion. Patient reports that he is having some blood in stool likely from hemorrhoids. Patient reports he had colonoscopy approximately 3 weeks ago at [facility]. Stool for occult blood have been ordered. Patient remains on antibiotics per ID and pulmonary services following. Patient denies chest pain. Patient denies any nausea or vomiting. Patient denies any urinary burning or frequency On 05/15/2019 patient is sitting up at site of bed reporting that his shortness of breath has not improved. Antibiotics maintained. Mucinex as needed. He is still complaining of loose stools this morning with irritation secondary to hemorrhoids. Will continue Imodium. Hydrocortisone topical added for local treatment per GI. No plans for endoscopic evaluation. Patient denies chest pain. Patient denies any nausea or vomiting patient denies any urinary frequency. Objective - Vital Signs Vital signs: Vital Signs Temp 97.5 F L 05/15/19 04:59 Pulse 78 05/15/19 04:59 Resp 16 05/15/19 04:59 BP 128/65 05/15/19 04:59 Pulse Ox 92 L 05/15/19 04:59 Intake & Output 05/14/19 05/15/19 05/15/19 18:59 06:59 18:59 Intake Total 150 Balance 150 Intake: Intake, IV Titration 150 Amount Clindamycin 600 mg In 50 Dextrose 5% in Water 50 ml @ 50 mls/hr IVPB Q8HR MOISES Rx#:[id number] Levofloxacin 500Mg-D5w 100 Pmx 500 mg In Dextrose/ Water 1 100ml.bag @ 100 mls/hr IVPB Q24H MOISES Rx#: [id number] Other: Voiding Method Toilet Toilet Urinal # Voids 1 # Bowel Movements 3 - Exam In general patient is alert and oriented 3 in no apparent distress HEENT head normocephalic and atraumatic Neck is supple no JVD no goiter no lymphadenopathy Chest exam reveals a few scattered rhonchi, no wheezing Cardiac exam reveals regular heart sounds no gallops no murmurs Abdomen is soft nontender no organomegaly with normal bowel sounds Extremity exam reveals 2+ edema with mild erythema, legs wrapped in shakila bandage Neurological examination reveals no gross focal deficit - Labs CBC & Chem 7: 05/15/19 07:18 05/15/19 07:18 Labs: Abnormal Lab Results - Last 24 Hours (Table) 05/14/19 05/14/19 05/14/19 Range/Units 11:30 17:16 19:46 RBC (4.30-5.90) m/uL Hgb (13.0-17.5) gm/dL Hct (39.0-53.0) % MCV (80.0-100.0) fL MCH (25.0-35.0) pg MCHC (31.0-37.0) g/dL RDW (11.5-15.5) % Plt Count (150-450) k/uL Lymphocytes # (1.0-4.8) k/uL Sodium (137-145) mmol/L Carbon Dioxide (22-30) mmol/L BUN (9-20) mg/dL POC Glucose (mg/dL) 220 H 293 H 371 H (75-99) mg/dL Total Protein (6.3-8.2) g/dL Albumin (3.5-5.0) g/dL 05/15/19 05/15/19 05/15/19 Range/Units 06:56 07:18 07:18 RBC 3.59 L (4.30-5.90) m/uL Hgb 8.0 L (13.0-17.5) gm/dL Hct 27.2 L (39.0-53.0) % MCV 75.8 L (80.0-100.0) fL MCH 22.4 L (25.0-35.0) pg MCHC 29.5 L (31.0-37.0) g/dL RDW 16.8 H (11.5-15.5) % Plt Count 105 L (150-450) k/uL Lymphocytes # 0.9 L (1.0-4.8) k/uL Sodium 135 L (137-145) mmol/L Carbon Dioxide 32 H (22-30) mmol/L BUN 40 H (9-20) mg/dL POC Glucose (mg/dL) 131 H (75-99) mg/dL Total Protein 5.7 L (6.3-8.2) g/dL Albumin 3.3 L (3.5-5.0) g/dL Microbiology - Last 24 Hours (Table) 05/12/19 20:39 Gram Stain - Final Sputum Sputum Culture - Final Assessment and Plan Assessment: 1. Dyspnea related to acute exacerbation of interstitial lung disease and acute tracheobronchitis. Pulmonary service was consulted. Patient is on prednisone due to ALLERGY to Solu-Medrol. Chest x-ray obtained in ER, impression is moderate pulmonary interstitial fibrosis is unchanged. Pulmonary services following 2. Acute tracheobronchitis. Levaquin continued. Sputum sample negative. Mucinex added. 3. Lateral lower extremity cellulitis. Consulted ID services. Clindamycin discontinued per ID. 4. History of interstitial lung disease/pulmonary fibrosis history of chronic hypoxemic respiratory failure. Patient is maintained on home O2 5. Iron deficiency anemia with blood in stool noted per patient. Patient has required IV iron transfusions in the past. Patient is having rectal bleeding at this time, which is mild and he relates it to hemorrhoids. Patient had a colonoscopy 2 weeks ago at the [facility] in [place] will try to obtain records. Per GI services, no plans for endoscopic evaluation of time. Hydrocortisone topical therapy for local hemorrhoid. Will start patient on ferrous sulfate given low iron studies. 6. History of chronic diastolic congestive heart failure. Last echo completed December 2016. EF between 50 and 55%. Patient maintained on Lasix and Aldactone. 7. History of CAD. Patient underwent cardiac catheterization in August 2017, conclusion normal coronary artery angiogram, normal left ventricle end-diastolic pressure. 8. History of myasthenia gravis. Maintained on pyridostigmine. Follows with neurology outpatient. 9. History of diabetes mellitus type 2. Last hemoglobin A1c of 7.9 (from 10/26/18). Resume home insulin. Add sliding scale coverage 10. Hypertension essential. Resume home medications with parameters. 11. History of nonalcoholic liver cirrhosis 12. Chronic pain syndrome with morphine pump. Patient follows with Dr. Jernigan 13. History of obstructive sleep apnea. Unable to tolerate home CPAP, patient wears 2 L O2 as needed at home 14. History of seizure disorder. Maintain on Lamictal. Last seizure 2018 per patient. 15. History of GERD with reflux. Maintained on Pepcid and Protonix 16. History of former smoker 17. thrombocytopenia likely secondary to history of liver cirrhosis. Platelet 105 18. Patient is complaining of uncontrolled pain in his upper back lower back and bilateral lower extremities at this time will add [place], patient should return to his pain specialist as outpatient for adjustment of his pain pump or further management of his chronic pain. 19. Acute kidney injury. Creatinine elevated at 1.37 we'll continue to monitor at this time. Creatinine trending down, 1.20. 20. Diarrhea. Patient has had loose stools for 2 days. Patient mentions having chronic diarrhea at home and maintains on Imodium. He completed a colonoscopy 2 weeks ago at the [facility] in [place]. Will check C. diff at this time. Continue Imodium as needed. Probiotic ordered per GI. DVT prophylaxis SCDs due blood in stool and anemia. GI prophylaxis Pepcid Protonix I performed an examination of the patient and discussed their management with the Nurse Practitioner. I have reviewed the Nurse Practitioner's notes and agree with the documented findings and plan of care <Josr Osorio - Last Filed: 05/16/19 09:31> Objective - Vital Signs Vital signs: Vital Signs Temp 98.4 F 05/16/19 04:31 Pulse 66 05/16/19 04:31 Resp 16 05/16/19 04:31 BP 127/61 05/16/19 04:31 Pulse Ox 100 05/16/19 04:31 Intake & Output 05/15/19 05/16/19 05/16/19 18:59 06:59 18:59 Intake Total 1080 1080 Output Total 700 Balance 380 1080 Intake: Oral 1080 1080 Output: Urine 700 Other: Voiding Method Toilet Toilet Toilet Urinal Urinal Urinal # Voids 4 3 # Bowel Movements 2 - Labs CBC & Chem 7: 05/16/19 07:20 05/16/19 02:24 Labs: Abnormal Lab Results - Last 24 Hours (Table) 05/15/19 05/15/19 05/15/19 Range/Units : 17:17 20:32 RBC (4.30-5.90) m/uL Hgb (13.0-17.5) gm/dL Hct (39.0-53.0) % MCV (80.0-100.0) fL MCH (25.0-35.0) pg MCHC (31.0-37.0) g/dL RDW (11.5-15.5) % Plt Count (150-450) k/uL Lymphocytes # (1.0-4.8) k/uL Sodium (137-145) mmol/L Chloride (98-107) mmol/L BUN (9-20) mg/dL Glucose (74-99) mg/dL POC Glucose (mg/dL) 312 H 262 H 309 H (75-99) mg/dL Total Protein (6.3-8.2) g/dL 05/16/19 05/16/19 05/16/19 Range/Units 02:24 02:24 06:57 RBC 3.66 L (4.30-5.90) m/uL Hgb 8.3 L (13.0-17.5) gm/dL Hct 28.5 L (39.0-53.0) % MCV 77.9 L (80.0-100.0) fL MCH 22.8 L (25.0-35.0) pg MCHC 29.3 L (31.0-37.0) g/dL RDW 16.3 H (11.5-15.5) % Plt Count 120 L (150-450) k/uL Lymphocytes # 0.4 L (1.0-4.8) k/uL Sodium 129 L (137-145) mmol/L Chloride 97 L (98-107) mmol/L BUN 47 H (9-20) mg/dL Glucose 250 H (74-99) mg/dL POC Glucose (mg/dL) 244 H (75-99) mg/dL Total Protein 6.1 L (6.3-8.2) g/dL 05/16/19 Range/Units 07:20 RBC 3.77 L (4.30-5.90) m/uL Hgb 8.2 L (13.0-17.5) gm/dL Hct 28.4 L (39.0-53.0) % MCV 75.4 L (80.0-100.0) fL MCH 21.8 L (25.0-35.0) pg MCHC 28.9 L (31.0-37.0) g/dL RDW 16.8 H (11.5-15.5) % Plt Count 117 L (150-450) k/uL Lymphocytes # 0.4 L (1.0-4.8) k/uL Sodium (137-145) mmol/L Chloride (98-107) mmol/L BUN (9-20) mg/dL Glucose (74-99) mg/dL POC Glucose (mg/dL) (75-99) mg/dL Total Protein (6.3-8.2) g/dL Assessment and Plan Assessment: Patient continuing to have wheezing continue current treatment plan, pulmonary following
[2019-05-15] MEDS: SODIUM CHLORIDE 0.9% 1,000 ML IV SCH (10:54)
[2019-05-15] MEDS: Lamivudine [Lamivudine] 300 MG PO SCH (10:59)
[2019-05-15 11:21] LABS: Glucose,Whole Blood 312 mg/dL (75-99)
[2019-05-15] MEDS ORDERED: LEVOFLOXACIN 500 MG TAB PO SCH (12:00)
[2019-05-15] MEDS: guaiFENesin 600 MG TABLET.ER PO PRN (12:25)
[2019-05-15] MEDS: HYDROcodone/APAP 7.5-325MG 1 EACH TAB PO PRN ×2 (12:25→20:47)
--- NOTE | 2019-05-15 14:06 | PN ---
PROGRESS NOTE DATE OF SERVICE: 05/15/2019 REASON FOR FOLLOWUP: 1. Tracheobronchitis. 2. Lower extremity cellulitis. 3. Diarrhea. INTERVAL HISTORY: The patient is currently afebrile. The patient has been breathing comfortably. Still complaining of some shortness of breath with cough with a just sputum. No hemoptysis. No chest pain. No abdominal pain. Has been complaining of diarrhea with multiple loose stool with occasional bleeding for which GI has been consulted. PHYSICAL EXAMINATION: Blood pressure 117/63 with a pulse of 74, temperature 97.9, he is 100% on 2 L nasal cannula. General description is an elderly male, up in the bed in no distress. RESPIRATORY SYSTEM: Unlabored breathing, coarse breath sounds bilaterally, no wheeze. HEART: S1, S2. Regular rate and rhythm. ABDOMEN: Soft, no tenderness. Legs are currently wrapped up. No obvious drainage on the dressing. LABS: Hemoglobin 8, white count 6.1, BUN of 14, creatinine 1.20. DIAGNOSTIC IMPRESSION/PLAN: 1. Patient admitted to the hospital with difficulty in breathing. This patient did have evidence of tracheobronchitis with underlying pulmonary fibrosis and there was no evidence of any pneumonia, fever. Continue with Levaquin. Probable per Pulmonary. 2. Lower extremity cellulitis, adequately treated, currently of antibiotic. 3. Diarrhea. Will check stool for C. diff. If deemed positive, clinical suspicion is low for underlying C difficile colitis in a patient with no fever or elevated white count. Plan of care was discussed with the nurse practitioner for admitting. MMJOSELINL / CLARISAN: [id number] /
--- NOTE | 2019-05-15 16:48 | PN ---
PROGRESS NOTE This patient was seen again on 05/15/2019. He has been having worsening dyspnea as well as wheezing. He was not given his Solu-Medrol yesterday, as it was canceled by Pharmacy. He was sitting in a chair and was short of breath. On physical examination, blood pressure is 117/63, respiratory rate 18, pulse rate 74, temperature 97.9. Oxygen saturation on 2 L by nasal cannula is 100%. HEENT is unremarkable. Chest reveals expiratory wheeze. Cardiovascular system is in S1, S2. Abdomen is soft. There is trace pedal edema. IMPRESSION AT THIS TIME: 1. Asthma with acute exacerbation. 2. Interstitial fibrosis. 3. Myasthenia gravis. 4. Obesity. 5. Congestive heart failure. Would give him extra doses of systemic steroids. Will change his Solu-Medrol to Decadron for 3 doses and follow him closely. Depending on how he does, we shall make further changes to his care. He was counseled regarding his condition and this approach. MMODL / IJN: [id number] /
[2019-05-15 17:18] LABS: Glucose,Whole Blood 262 mg/dL (75-99)
[2019-05-15] MEDS: DEXAMETHASONE SOD PHOSPHATE 4 MG/ML 1 ML VIAL IV SCH ×2 (17:32→23:45)
[2019-05-15] MEDS ORDERED: methylPREDNISolone SOD SUCCI 125 MG/2 ML VIAL IV SCH (18:00)
[2019-05-15] MEDS: LOPERAMIDE 2 MG CAP PO PRN (19:56)
[2019-05-15 20:34] LABS: Glucose,Whole Blood 309 mg/dL (75-99)
[2019-05-15] MEDS: FERROUS SULFATE 325 MG TAB PO SCH (20:40)
[2019-05-15] MEDS: INSULIN DETEMIR (LEVEMIR) 100 UNIT/ML SYR SQ SCH (20:41)
[2019-05-16 03:19] LABS: Anisocytosis Slight; Basophils % (A) 0 %; Eosinophils % (A) 0 %; HCT 28.5 % (39.0-53.0); HGB 8.3 gm/dL (13.0-17.5); Hypochromasia Marked; Lymphocytes # (A) 0.4 k/uL (1.0-4.8); Lymphocytes % (A) 5 %; MCH 22.8 pg (25.0-35.0); MCHC 29.3 g/dL (31.0-37.0); MCV 77.9 fL (80.0-100.0); Mean Platelet Volume 6.4; Microcytosis Slight; Monocytes # (A) 0.2 k/uL (0-1.0); Monocytes % (A) 3 %; Neutrophils # (A) 6.1 k/uL (1.3-7.7); Neutrophils % (A) 91 %; Platelet Count 120 k/uL (150-450); RBC 3.66 m/uL (4.30-5.90); RDW 16.3 % (11.5-15.5); WBC 6.7 k/uL (3.8-10.6)
[2019-05-16 03:24] LABS: Albumin 3.7 g/dL (3.5-5.0); Calcium 9.2 mg/dL (8.4-10.2); Potassium 5.1 mmol/L (3.5-5.1); Total Bilirubin 0.6 mg/dL (0.2-1.3); Total Protein 6.1 g/dL (6.3-8.2)
[2019-05-16] MEDS: PYRIDOSTIGMINE 60 MG TAB PO SCH ×6 (03:29→23:51)
[2019-05-16] MEDS: DEXAMETHASONE SOD PHOSPHATE 4 MG/ML 1 ML VIAL IV SCH ×4 (05:23→23:51)
[2019-05-16 06:58] LABS: Glucose,Whole Blood 244 mg/dL (75-99)
[2019-05-16 07:39] LABS: Anisocytosis Slight; Basophils % (A) 0 %; Eosinophils % (A) 0 %; HCT 28.4 % (39.0-53.0); HGB 8.2 gm/dL (13.0-17.5); Hypochromasia Marked; Lymphocytes # (A) 0.4 k/uL (1.0-4.8); Lymphocytes % (A) 7 %; MCH 21.8 pg (25.0-35.0); MCHC 28.9 g/dL (31.0-37.0); MCV 75.4 fL (80.0-100.0); Mean Platelet Volume 6.8; Microcytosis Slight; Monocytes # (A) 0.2 k/uL (0-1.0); Monocytes % (A) 4 %; Neutrophils # (A) 5.4 k/uL (1.3-7.7); Neutrophils % (A) 88 %; Platelet Count 117 k/uL (150-450); RBC 3.77 m/uL (4.30-5.90); RDW 16.8 % (11.5-15.5); WBC 6.1 k/uL (3.8-10.6)
[2019-05-16] MEDS: INSULIN ASPART (NovoLOG) 100 UNIT/ML VIAL SQ SCH ×6 (07:50→17:21)
[2019-05-16] MEDS: ISOSORBIDE MONONITRATE ER 30 MG TAB.ER.24H PO SCH (07:51)
[2019-05-16] MEDS: PANTOPRAZOLE 40 MG TABLET PO SCH (07:51)
[2019-05-16] MEDS: MULTIVITAMINS, THERA 1 EACH TAB PO SCH (07:51)
[2019-05-16] MEDS: MAGNESIUM OXIDE 400 MG TAB PO SCH (07:51)
[2019-05-16] MEDS: lamoTRIgine 100 MG TAB PO SCH ×2 (07:51→21:12)
[2019-05-16] MEDS: FERROUS SULFATE 325 MG TAB PO SCH ×2 (07:52→21:10)
[2019-05-16] MEDS: FUROSEMIDE 40 MG TAB PO SCH (07:52)
[2019-05-16] MEDS: FINASTERIDE 5 MG TAB PO SCH (07:52)
[2019-05-16] MEDS: predniSONE 20 MG TAB PO SCH (07:52)
[2019-05-16] MEDS: LOSARTAN 50 MG TAB PO SCH (07:52)
[2019-05-16] MEDS: CHOLECALCIFEROL 1,000 UNIT TAB PO SCH (07:52)
[2019-05-16] MEDS: SPIRONOLACTONE 25 MG TAB PO SCH (07:52)
[2019-05-16] MEDS: LEVOFLOXACIN 500 MG TAB PO SCH (07:52)
[2019-05-16] MEDS: LACTOBACILLUS ACIDOPH & BULGAR 1 EACH PACKET PO SCH ×2 (07:53→21:11)
[2019-05-16] MEDS: FAMOTIDINE 20 MG TAB PO SCH ×2 (07:53→21:10)
[2019-05-16] MEDS: CYANOCOBALAMIN 500 MCG TAB PO SCH (07:53)
[2019-05-16] MEDS: Lamivudine [Lamivudine] 300 MG PO SCH (07:54)
[2019-05-16] MEDS: HYDROCORTISONE 2.5% RECTAL CREAM 30 GM TUBE RECTAL SCH ×2 (07:54→21:10)
[2019-05-16] MEDS: HYDROCORTISONE 1% CREAM 454 GM JAR TOPICAL SCH ×2 (08:03→21:10)
--- NOTE | 2019-05-16 08:56 | CDI ---
Documentation Clarification Form Date: 05/16/2019 8:43:28 AM From: Genevieve ErazoFernandezJOYCELYN, CCDS Admit Date: 05/11/2019 5:13:00 PM Patient Name: Duke Sánchez Visit Number: [id number] Discharge Date: ATTENTION: The Clinical Documentation Specialists (CDI) and [facility] Coding Staff appreciate your assistance in clarifying documentation. Please respond to the clarification below the line at the bottom and electronically sign. The CDI & [facility] Coding staff will review the response and follow-up if needed. Please note: Queries are made part of the Legal Health Record. If you have any questions, please contact the author of this message via ITS. Dr. Wilton Walker: Per the 05/11 pulmonary progress note: "Possible occult asthma." Per the 05/14 pulmonary progress note: "Bronchospasm secondary to asthma and chronic obstructive pulmonary disease with acute exacerbation." Per the 05/15 pulmonary progress note: "Asthma with acute exacerbation." History: Pulmonary fibrosis, Chronic diastolic CHF, CVA, CAD, [place] x2, Myasthenia gravis, DM II, COPD, Hypertension, Hyperlipidemia, Sleep apnea & Former smoker. Home O2 2Lnc. Clinical Indicators: Presented with SOB. Cough with thick, yellow sputum. Low grade temp. Diagnosed with acute exacerbation of interstitial lung disease & acute tracheobronchitis, Acute on chronic hypoxic respiratory failure, Bilateral lower extremity cellulitis. Chronic diastolic CHF & Lower extremity cellulitis. Vital signs: T 97.8, P 79, R 22, BP 135/53, PO 97 RA - 97 2Lnc. RAD: CXR 05/09: Moderate pulmonary interstitial fibrosis unchanged, normal heart. Treatment: IV fluid 100, IV MagSulf, INH Albuterol, po Lasix, po Prednisone, po Aldactone, po Mucinex, IV Clindamycin, po Levaquin & IV Solumedrol. In your professional opinion, can you please further specify the patient's asthma, if known? Severity o Mild intermittent o Mild persistent o Moderate persistent o Severe persistent o Other, please specify ____ o Unable to determine Form or Type o Cough variant o Childhood o Exercise induced bronchospasm o Extrinsic allergic o Idiosyncratic o Intrinsic nonallergic o Late-onset o Mixed o Other, please specify____ o Unable to determine (Last Revision: October 2017) MTDD
--- NOTE | 2019-05-16 09:43 | P.PN ---
Subjective Progress Note Date: 05/16/19 This is a 73-year-old male patient of Dr. Osorio who presents with worsening shortness of breath over the last couple days. He does mention that he noticed symptoms weeks ago but the last few days have been especially worse. Patient states that the shortness breath is exacerbated by exertion, he has some relief at rest. Patient has had a productive cough, with thick, yellow sputum. He states that he used [id number] cough suppressant which did give him some relief. Today he is sitting up in chair, in no acute distress. He is wearing 2 L of oxygen and states that he wears this at home as needed. He reports having chills at home and states that he has to wear several blankets at night. He also thinks he might have had a low-grade temp but has been afebrile since admission. He denies any chest pain, palpitations. He denies any nausea, vomiting, diarrhea. He denies any urinary frequency or burning. Past medical history includes: Myasthenia gravis, interstitial lung disease, CVA/TIA, diabetes mellitus, liver cirrhosis, myocardial infarction, hypothyroidism, obstructive sleep apnea, GERD with reflux, hearing disorder/deafness, hypertension hyperlipidemia, seizure disorder. On 05/11/2019 patient was seen and examined on the medical floor he is alert and oriented 3 in no apparent distress he is complaining of pain in his upper back, lower back, and both legs. He has a pain pump implanted however he states that his pain is not well controlled he is also still complaining of cough and shortness of breath especially with activity otherwise he denies any complaints there is no fever or chills no headache or dizziness no chest pain no nausea or vomiting no abdominal pain no diarrhea no burning was urination no frequency or urgency no hematuria.. On 05/12/2019 patient was seen and examined on the medical floor he is complaining of rectal bleeding that he relates to hemorrhoids he is complaining of back pain and he is still complaining of cough and shortness of breath and wheezing. Otherwise he denies any complaints there is no fever or chills no headache or dizziness no chest pain nausea or vomiting no abdominal pain no diarrhea no burning was urination no frequency or urgency no hematuria. On 05/13/2019 patient is feeling slightly improved today. Patient still complaining of some shortness of breath and cough. Patient maintained on Mucinex. Patient is alert and oriented 3. Stool for occult blood has been ordered. Patient having cough with positive sputum production. Patient denies chest pain. Patient denies nausea vomiting or diarrhea. Patient denies any urinary burning or frequency 05/14/2019 patient is still having some shortness of breath with sputum production. Patient reports that he is having some blood in stool likely from h emorrhoids. Patient reports he had colonoscopy approximately 3 weeks ago at [facility]. Stool for occult blood have been ordered. Patient remains on antibiotics per ID and pulmonary services following. Patient denies chest pain. Patient denies any nausea or vomiting. Patient denies any urinary burning or frequency On 05/15/2019 patient is sitting up at site of bed reporting that his shortness of breath has not improved. Antibiotics maintained. Mucinex as needed. He is still complaining of loose stools this morning with irritation secondary to hemorrhoids. Will continue Imodium. Hydrocortisone topical added for local treatment per GI. No plans for endoscopic evaluation. Patient denies chest pain. Patient denies any nausea or vomiting patient denies any urinary frequency. On 05/16/2019 Patient is up moving around the room. Reports feeling worse today. Patient shortness of breath has not improved and is complaining of lower back pain. Creatinine 1.23 from 1.20. Antibiotics maintained. Per Dr. Walker, patient will receive Decadron 3 doses. Overnight he had one episode of bleeding with bowel movement. Hemoglobin stable. Continue topical management for hemorrhoids. Patient denies chest pain. Patient denies any nausea vomiting or urinary burning or frequency. Objective - Vital Signs Vital signs: Vital Signs Temp 98.4 F 05/16/19 04:31 Pulse 66 05/16/19 04:31 Resp 16 05/16/19 04:31 BP 127/61 05/16/19 04:31 Pulse Ox 100 05/16/19 04:31 Intake & Output 05/15/19 05/16/19 05/16/19 18:59 06:59 18:59 Intake Total 1080 1080 Output Total 700 Balance 380 1080 Intake: Oral 1080 1080 Output: Urine 700 Other: Voiding Method Toilet Toilet Toilet Urinal Urinal Urinal # Voids 4 3 # Bowel Movements 2 - Exam In general patient is alert and oriented 3 in no apparent distress HEENT head normocephalic and atraumatic Neck is supple no JVD no goiter no lymphadenopathy Chest exam reveals a few scattered rhonchi, expiratory wheezes Cardiac exam reveals regular heart sounds no gallops no murmurs Abdomen is soft nontender no organomegaly with normal bowel sounds. Low back pain bilaterally reproducible to palpation. Extremity exam reveals 3+ edema with mild erythema Neurological examination reveals no gross focal deficit - Labs CBC & Chem 7: 05/16/19 07:20 05/16/19 02:24 Labs: Abnormal Lab Results - Last 24 Hours (Table) 05/15/19 05/15/19 05/15/19 Range/Units 11: 17:17 20:32 RBC (4.30-5.90) m/uL Hgb (13.0-17.5) gm/dL Hct (39.0-53.0) % MCV (80.0-100.0) fL MCH (25.0-35.0) pg MCHC (31.0-37.0) g/dL RDW (11.5-15.5) % Plt Count (150-450) k/uL Lymphocytes # (1.0-4.8) k/uL Sodium (137-145) mmol/L Chloride (98-107) mmol/L BUN (9-20) mg/dL Glucose (74-99) mg/dL POC Glucose (mg/dL) 312 H 262 H 309 H (75-99) mg/dL Total Protein (6.3-8.2) g/dL 05/16/19 05/16/19 05/16/19 Range/Units 02:24 02:24 06:57 RBC 3.66 L (4.30-5.90) m/uL Hgb 8.3 L (13.0-17.5) gm/dL Hct 28.5 L (39.0-53.0) % MCV 77.9 L (80.0-100.0) fL MCH 22.8 L (25.0-35.0) pg MCHC 29.3 L (31.0-37.0) g/dL RDW 16.3 H (11.5-15.5) % Plt Count 120 L (150-450) k/uL Lymphocytes # 0.4 L (1.0-4.8) k/uL Sodium 129 L (137-145) mmol/L Chloride 97 L (98-107) mmol/L BUN 47 H (9-20) mg/dL Glucose 250 H (74-99) mg/dL POC Glucose (mg/dL) 244 H (75-99) mg/dL Total Protein 6.1 L (6.3-8.2) g/dL 05/16/19 Range/Units 07:20 RBC 3.77 L (4.30-5.90) m/uL Hgb 8.2 L (13.0-17.5) gm/dL Hct 28.4 L (39.0-53.0) % MCV 75.4 L (80.0-100.0) fL MCH 21.8 L (25.0-35.0) pg MCHC 28.9 L (31.0-37.0) g/dL RDW 16.8 H (11.5-15.5) % Plt Count 117 L (150-450) k/uL Lymphocytes # 0.4 L (1.0-4.8) k/uL Sodium (137-145) mmol/L Chloride (98-107) mmol/L BUN (9-20) mg/dL Glucose (74-99) mg/dL POC Glucose (mg/dL) (75-99) mg/dL Total Protein (6.3-8.2) g/dL Assessment and Plan Assessment: 1. Dyspnea related to acute exacerbation of interstitial lung disease and acute tracheobronchitis. Pulmonary service was consulted. Patient is on prednisone due to ALLERGY to Solu-Medrol. Chest x-ray obtained in ER, impression is moderate pulmonary interstitial fibrosis is unchanged. Per Pulmonary, 3 doses of Decadron. 2. Acute tracheobronchitis. Levaquin continued. Sputum sample negative. Mucinex added. 3. Lateral lower extremity cellulitis. Consulted ID services. Clindamycin discontinued per ID. 4. History of interstitial lung disease/pulmonary fibrosis history of chronic hypoxemic respiratory failure. Patient is maintained on home O2 5. Iron deficiency anemia with blood in stool noted per patient. Patient has required IV iron transfusions in the past. Patient is having rectal bleeding at this time, which is mild and he relates it to hemorrhoids. Patient had a colonoscopy 2 weeks ago at the [facility] in [place] will try to obtain records. Per GI services, no plans for endoscopic evaluation of time. Hydrocortisone topica l therapy for local hemorrhoid. Will start patient on ferrous sulfate given low iron studies. 6. History of chronic diastolic congestive heart failure. Last echo completed December 2016. EF between 50 and 55%. Patient maintained on Lasix and Aldactone. 7. History of CAD. Patient underwent cardiac catheterization in August 2017, conclusion normal coronary artery angiogram, normal left ventricle end-diastolic pressure. 8. History of myasthenia gravis. Maintained on pyridostigmine. Follows with neurology outpatient. 9. History of diabetes mellitus type 2. Last hemoglobin A1c of 7.9 (from 10/26/18). Resume home insulin. Add sliding scale coverage. Educated about the importance of a low carb diet. 10. Hypertension essential. Resume home medications with parameters. 11. History of nonalcoholic liver cirrhosis 12. Chronic pain syndrome with morphine pump. Patient follows with Dr. Jernigan 13. History of obstructive sleep apnea. Unable to tolerate home CPAP, patient wears 2 L O2 as needed at home 14. History of seizure disorder. Maintain on Lamictal. Last seizure 2018 per patient. 15. History of GERD with reflux. Maintained on Pepcid and Protonix 16. History of former smoker 17. thrombocytopenia likely secondary to history of liver cirrhosis. Platelet 105 18. Patient is complaining of uncontrolled pain in his upper back lower back and bilateral lower extremities at this time will add Kingsley, patient should return to his pain specialist as outpatient for adjustment of his pain pump or further management of his chronic pain. 19. Acute kidney injury. Creatinine elevated at 1.37 we'll continue to monitor at this time. Creatinine down trending 1.23 20. Diarrhea. Patient has had loose stools for 2 days. Patient mentions having chronic diarrhea at home and maintains on Imodium. He completed a colonoscopy 2 weeks ago at the [facility] in [place]. Awaiting C. diff collection, patient only had 1 bowel movement overnight with blood present. Continue Imodium as needed. Probiotic ordered per GI. 21. Hyponatremia. Sodium 129. We'll hold Aldactone today and repeat labs tomorrow. DVT prophylaxis SCDs due blood in stool and anemia. GI prophylaxis Pepcid Protonix I performed an examination of the patient and discussed their management with the Nurse Practitioner. I have reviewed the Nurse Practitioner's notes and agree with the documented findings and plan of care
[2019-05-16 12:02] LABS: Glucose,Whole Blood 275 mg/dL (75-99)
--- NOTE | 2019-05-16 13:22 | P.PN ---
Subjective Progress Note Date: 05/16/19 Principal diagnosis: Acute on chronic hypoxic respiratory failure Pulmonary fibrosis Purulent tracheobronchitis Bilateral lower extremity edema Diastolic heart failure acute on chronic Morbid obesity Obstructive sleep apnea Myasthenia gravis stable on Pyridostigmine Hypertension hypertensive cardiovascular disease Thrombocytopenia History of chronic liver disease 05/16/2019, patient seen eval examined during the rounds breathing relatively more comfortably has more of a back pain that's is however chronic denies any chest pain labs reviewed medications reviewed, patient has been on Decadron This is a 73-year-old morbidly obese male with history of obstructive sleep apnea and myasthenia gravis, patient has a history of pulmonary fibrosis and chronic hypoxic respiratory failure has been on oxygen 2 L nasal cannula, he has chronic lower extremity edema, came into the hospital with progressive shortness of breath for last 2 days getting worse symptoms actually started more than a week ago and lower extremity edema was getting worse does have thick sputum production which is still issues green in color his chest x-ray revealed bilateral pulmonary fibrosis occult pneumonia cannot be excluded patient is on broad-spectrum antibiotics breathing treatment and steroids feels slightly better than before Objective - Vital Signs Vital signs: Vital Signs Temp 98 F 05/16/19 13:00 Pulse 79 05/16/19 13:00 Resp 22 05/16/19 13:00 BP 122/67 05/16/19 13:00 Pulse Ox 95 05/16/19 13:00 Intake & Output 05/15/19 05/16/19 05/16/19 18:59 06:59 18:59 Intake Total 1080 1080 Output Total 700 Balance 380 1080 Intake: Oral 1080 1080 Output: Urine 700 Other: Voiding Method Toilet Toilet Toilet Urinal Urinal Urinal # Voids 4 3 # Bowel Movements 2 - Exam - Constitutional General appearance: cooperative, disheveled, mild distress, morbidly obese, no acute distress - EENT Eyes: PERRLA, poor dentition Ears: bilateral: normal - Neck Carotids: bilateral: upstroke normal - Respiratory Respiratory: bilateral: diminished, rales (Bilateral dry), negative: CTA, dullness, rhonchi, wheezing, prolonged expiration - Cardiovascular Rhythm: regular Heart sounds: normal: S1, S2 - Gastrointestinal General gastrointestinal: absent bowel sounds - Integumentary Integumentary: normal turgor - Neurologic Neurologic: CNII-XII intact - Musculoskeletal Musculoskeletal: gait normal, generalized weakness, strength equal bilaterally - Psychiatric Psychiatric: A&O x's 3, appropriate affect, intact judgment & insight - Labs CBC & Chem 7: 05/16/19 07:20 05/16/19 02:24 Labs: Abnormal Lab Results - Last 24 Hours (Table) 05/15/19 05/15/19 05/16/19 Range/Units 17:17 20:32 02:24 RBC (4.30-5.90) m/uL Hgb (13.0-17.5) gm/dL Hct (39.0-53.0) % MCV (80.0-100.0) fL MCH (25.0-35.0) pg MCHC (31.0-37.0) g/dL RDW (11.5-15.5) % Plt Count (150-450) k/uL Lymphocytes # (1.0-4.8) k/uL Sodium 129 L (137-145) mmol/L Chloride 97 L (98-107) mmol/L BUN 47 H (9-20) mg/dL Glucose 250 H (74-99) mg/dL POC Glucose (mg/dL) 262 H 309 H (75-99) mg/dL Total Protein 6.1 L (6.3-8.2) g/dL 05/16/19 05/16/19 05/16/19 Range/Units 02:24 06:57 07:20 RBC 3.66 L 3.77 L (4.30-5.90) m/uL Hgb 8.3 L 8.2 L (13.0-17.5) gm/dL Hct 28.5 L 28.4 L (39.0-53.0) % MCV 77.9 L 75.4 L (80.0-100.0) fL MCH 22.8 L 21.8 L (25.0-35.0) pg MCHC 29.3 L 28.9 L (31.0-37.0) g/dL RDW 16.3 H 16.8 H (11.5-15.5) % Plt Count 120 L 117 L (150-450) k/uL Lymphocytes # 0.4 L 0.4 L (1.0-4.8) k/uL Sodium (137-145) mmol/L Chloride (98-107) mmol/L BUN (9-20) mg/dL Glucose (74-99) mg/dL POC Glucose (mg/dL) 244 H (75-99) mg/dL Total Protein (6.3-8.2) g/dL 05/16/19 Range/Units 11:50 RBC (4.30-5.90) m/uL Hgb (13.0-17.5) gm/dL Hct (39.0-53.0) % MCV (80.0-100.0) fL MCH (25.0-35.0) pg MCHC (31.0-37.0) g/dL RDW (11.5-15.5) % Plt Count (150-450) k/uL Lymphocytes # (1.0-4.8) k/uL Sodium (137-145) mmol/L Chloride (98-107) mmol/L BUN (9-20) mg/dL Glucose (74-99) mg/dL POC Glucose (mg/dL) 275 H (75-99) mg/dL Total Protein (6.3-8.2) g/dL Assessment and Plan Assessment: Acute on chronic hypoxic respiratory failure Pulmonary fibrosis Purulent tracheobronchitis Bilateral lower extremity edema Diastolic heart failure acute on chronic Morbid obesity Obstructive sleep apnea Myasthenia gravis stable on Pyridostigmine Hypertension hypertensive cardiovascular disease Thrombocytopenia History of chronic liver disease Plan: Continue short course of Decadron Gentle diuresis Broad-spectrum antibiotics Continue supportive care Breathing treatments Other recommendations pending plan of care as per clinical response of the patient Time with Patient: Greater than 30
[2019-05-16] MEDS: HYDROcodone/APAP 7.5-325MG 1 EACH TAB PO PRN (14:13)
[2019-05-16] MEDS: LOPERAMIDE 2 MG CAP PO PRN (14:13)
[2019-05-16] MEDS: SODIUM CHLORIDE 0.9% 1,000 ML IV SCH (15:55)
[2019-05-16 17:18] LABS: Glucose,Whole Blood 231 mg/dL (75-99)
[2019-05-16 20:11] LABS: Glucose,Whole Blood 337 mg/dL (75-99)
[2019-05-16] MEDS: INSULIN DETEMIR (LEVEMIR) 100 UNIT/ML SYR SQ SCH (21:11)
[2019-05-16] MEDS: guaiFENesin 600 MG TABLET.ER PO PRN (21:12)
--- NOTE | 2019-05-16 23:35 | PN ---
PROGRESS NOTE DATE OF SERVICE: 05/16/2019 REASON FOR FOLLOWUP: 1. Tracheobronchitis. 2. Lower extremity cellulitis. 3. Diarrhea. INTERVAL HISTORY: The patient is currently afebrile. The patient is still complaining of shortness of breath and cough with sputum production. No nausea, no vomiting. No abdominal pain. The patient's diarrhea has resolved. Denies any worsening pain to the leg. PHYSICAL EXAMINATION: Blood pressure 122/67 with a pulse of 79, temperature 98. He is 95% on room air. General description is an elderly male up in the chair in no distress. RESPIRATORY SYSTEM: Unlabored breathing with coarse crackles bilaterally. Occasional wheeze. HEART: S1, S2. Regular rate and rhythm. ABDOMEN: Soft. No tenderness. LEGS: Some swelling but no redness. LABS: Hemoglobin 8.2, white count 6.1. BUN of 47. Creatinine is 1.23. DIAGNOSTIC IMPRESSION AND PLAN: 1. Patient admitted to hospital with difficulty in breathing, which is likely multifactorial in this patient who did have a cough with evidence of tracheobronchitis. Chest x-rays were negative for any acute infiltrate. Patient is currently covered with Levaquin bronchodilator per Pulmonary. 2. Lower extremity cellulitis, adequately treated. 3. Antibiotic-associated diarrhea, improved after discontinuation of clindamycin. Continue with supportive care. MMODL / IJN: [id number] /
[2019-05-17] MEDS: PYRIDOSTIGMINE 60 MG TAB PO SCH ×5 (04:40→20:44)
[2019-05-17] MEDS: LOPERAMIDE 2 MG CAP PO PRN (04:40)
[2019-05-17] MEDS: DEXAMETHASONE SOD PHOSPHATE 4 MG/ML 1 ML VIAL IV SCH ×3 (05:25→17:37)
[2019-05-17 07:05] LABS: Glucose,Whole Blood 261 mg/dL (75-99)
[2019-05-17 08:04] LABS: Albumin 3.7 g/dL (3.5-5.0); Calcium 9.6 mg/dL (8.4-10.2); Potassium 5.3 mmol/L (3.5-5.1); Total Protein 6.4 g/dL (6.3-8.2)
[2019-05-17 08:20] LABS: Anisocytosis Slight; Basophils % (A) 0 %; Eosinophils % (A) 0 %; HCT 28.4 % (39.0-53.0); HGB 8.3 gm/dL (13.0-17.5); Hypochromasia Marked; Lymphocytes # (A) 0.4 k/uL (1.0-4.8); Lymphocytes % (A) 4 %; MCH 22.2 pg (25.0-35.0); MCHC 29.3 g/dL (31.0-37.0); MCV 75.7 fL (80.0-100.0); Mean Platelet Volume 7.3; Microcytosis Slight; Monocytes # (A) 0.6 k/uL (0-1.0); Monocytes % (A) 6 %; Neutrophils # (A) 9.1 k/uL (1.3-7.7); Neutrophils % (A) 88 %; Platelet Count 175 k/uL (150-450); RBC 3.76 m/uL (4.30-5.90); WBC 10.4 k/uL (3.8-10.6)
[2019-05-17] MEDS: PANTOPRAZOLE 40 MG TABLET PO SCH (08:49)
[2019-05-17] MEDS: guaiFENesin 600 MG TABLET.ER PO PRN ×2 (08:49→20:44)
[2019-05-17] MEDS: MAGNESIUM OXIDE 400 MG TAB PO SCH (08:50)
[2019-05-17] MEDS: FAMOTIDINE 20 MG TAB PO SCH ×2 (08:50→20:45)
[2019-05-17] MEDS: MULTIVITAMINS, THERA 1 EACH TAB PO SCH (08:50)
[2019-05-17] MEDS: LOSARTAN 50 MG TAB PO SCH (08:50)
[2019-05-17] MEDS: FERROUS SULFATE 325 MG TAB PO SCH ×2 (08:50→20:45)
[2019-05-17] MEDS: CYANOCOBALAMIN 500 MCG TAB PO SCH (08:50)
[2019-05-17] MEDS: CHOLECALCIFEROL 1,000 UNIT TAB PO SCH (08:50)
[2019-05-17] MEDS: ISOSORBIDE MONONITRATE ER 30 MG TAB.ER.24H PO SCH (08:50)
[2019-05-17] MEDS: FINASTERIDE 5 MG TAB PO SCH (08:51)
[2019-05-17] MEDS: Lamivudine [Lamivudine] 300 MG PO SCH (08:51)
[2019-05-17] MEDS: LACTOBACILLUS ACIDOPH & BULGAR 1 EACH PACKET PO SCH ×2 (08:51→20:44)
[2019-05-17] MEDS: lamoTRIgine 100 MG TAB PO SCH ×2 (08:52→20:44)
[2019-05-17] MEDS: INSULIN ASPART (NovoLOG) 100 UNIT/ML VIAL SQ SCH ×6 (08:52→17:37)
[2019-05-17] MEDS: LEVOFLOXACIN 500 MG TAB PO SCH (08:52)
[2019-05-17] MEDS: HYDROCORTISONE 2.5% RECTAL CREAM 30 GM TUBE RECTAL SCH ×2 (08:53→20:52)
[2019-05-17] MEDS: SODIUM CHLORIDE 0.9% 1,000 ML IV SCH (08:54)
[2019-05-17] MEDS: predniSONE 20 MG TAB PO SCH (08:54)
[2019-05-17] MEDS: HYDROCORTISONE 1% CREAM 454 GM JAR TOPICAL SCH ×2 (08:54→20:53)
[2019-05-17] MEDS: HYDROcodone/APAP 7.5-325MG 1 EACH TAB PO PRN ×2 (09:01→20:44)
[2019-05-17 11:29] LABS: Glucose,Whole Blood 344 mg/dL (75-99)
--- NOTE | 2019-05-17 13:58 | P.PN ---
Subjective Progress Note Date: 05/17/19 This is a 73-year-old male patient of Dr. Osorio who presents with worsening shortness of breath over the last couple days. He does mention that he noticed symptoms weeks ago but the last few days have been especially worse. Patient states that the shortness breath is exacerbated by exertion, he has some relief at rest. Patient has had a productive cough, with thick, yellow sputum. He states that he used [id number] cough suppressant which did give him some relief. Today he is sitting up in chair, in no acute distress. He is wearing 2 L of oxygen and states that he wears this at home as needed. He reports having chills at home and states that he has to wear several blankets at night. He also thinks he might have had a low-grade temp but has been afebrile since admission. He denies any chest pain, palpitations. He denies any nausea, vomiting, diarrhea. He denies any urinary frequency or burning. Past medical history includes: Myasthenia gravis, interstitial lung disease, CVA/TIA, diabetes mellitus, liver cirrhosis, myocardial infarction, hypothyroidism, obstructive sleep apnea, GERD with reflux, hearing disorder/deafness, hypertension hyperlipidemia, seizure disorder. On 05/11/2019 patient was seen and examined on the medical floor he is alert and oriented 3 in no apparent distress he is complaining of pain in his upper back, lower back, and both legs. He has a pain pump implanted however he states that his pain is not well controlled he is also still complaining of cough and shortness of breath especially with activity otherwise he denies any complaints there is no fever or chills no headache or dizziness no chest pain no nausea or vomiting no abdominal pain no diarrhea no burning was urination no frequency or urgency no hematuria.. On 05/12/2019 patient was seen and examined on the medical floor he is complaining of rectal bleeding that he relates to hemorrhoids he is complaining of back pain and he is still complaining of cough and shortness of breath and wheezing. Otherwise he denies any complaints there is no fever or chills no headache or dizziness no chest pain nausea or vomiting no abdominal pain no diarrhea no burning was urination no frequency or urgency no hematuria. On 05/13/2019 patient is feeling slightly improved today. Patient still complaining of some shortness of breath and cough. Patient maintained on Mucinex. Patient is alert and oriented 3. Stool for occult blood has been ordered. Patient having cough with positive sputum production. Patient denies chest pain. Patient denies nausea vomiting or diarrhea. Patient denies any urinary burning or frequency 05/14/2019 patient is still having some shortness of breath with sputum production. Patient reports that he is having some blood in stool likely from h emorrhoids. Patient reports he had colonoscopy approximately 3 weeks ago at [facility]. Stool for occult blood have been ordered. Patient remains on antibiotics per ID and pulmonary services following. Patient denies chest pain. Patient denies any nausea or vomiting. Patient denies any urinary burning or frequency On 05/15/2019 patient is sitting up at site of bed reporting that his shortness of breath has not improved. Antibiotics maintained. Mucinex as needed. He is still complaining of loose stools this morning with irritation secondary to hemorrhoids. Will continue Imodium. Hydrocortisone topical added for local treatment per GI. No plans for endoscopic evaluation. Patient denies chest pain. Patient denies any nausea or vomiting patient denies any urinary frequency. On 05/16/2019 Patient is up moving around the room. Reports feeling worse today. Patient shortness of breath has not improved and is complaining of lower back pain. Creatinine 1.23 from 1.20. Antibiotics maintained. Per Dr. Walker, patient will receive Decadron 3 doses. Overnight he had one episode of bleeding with bowel movement. Hemoglobin stable. Continue topical management for hemorrhoids. Patient denies chest pain. Patient denies any nausea vomiting or urinary burning or frequency. On 05/17/2019 patient alert and oriented 3. Patient's lung sounds sound slightly improved compared to yesterday. Patient remains on Decadron. Patient's sodium also at 128. Patient placed on fluid restriction due to this issue. Hemoglobin remained stable. Blood sugars elevated due to Decadron and noncompliance with diabetic diet. Patient denies chest pain. Patient is complaining of lower back pain that is chronic for him. Patient does have morphine pain pump along with [place] for breakthrough pain. Objective - Vital Signs Vital signs: Vital Signs Temp 97.7 F 05/17/19 12:02 Pulse 70 05/17/19 12:02 Resp 18 05/17/19 12:02 BP 103/51 05/17/19 12:02 Pulse Ox 99 05/17/19 12:02 Intake & Output 05/16/19 05/17/19 05/17/19 18:59 06:59 18:59 Intake Total 1340 Balance 1340 Intake: Oral 1340 Other: Voiding Method Toilet Toilet Toilet Urinal Urinal Urinal # Voids 3 3 # Bowel Movements 2 3 - Exam In general patient is alert and oriented 3 in no apparent distress HEENT head normocephalic and atraumatic Neck is supple no JVD no goiter no lymphadenopathy Chest exam reveals a few scattered rhonchi, expiratory wheezes Cardiac exam reveals regular heart sounds no gallops no murmurs Abdomen is soft nontender no organomegaly with normal bowel sounds. Low back pain bilaterally reproducible to palpation. Extremity exam reveals 3+ edema with mild erythema Neurological examination reveals no gross focal deficit - Labs CBC & Chem 7: 05/17/19 07:27 05/17/19 07:27 Labs: Abnormal Lab Results - Last 24 Hours (Table) 05/16/19 05/16/19 05/17/19 Range/Units 17:16 20:09 07:04 RBC (4.30-5.90) m/uL Hgb (13.0-17.5) gm/dL Hct (39.0-53.0) % MCV (80.0-100.0) fL MCH (25.0-35.0) pg MCHC (31.0-37.0) g/dL RDW (11.5-15.5) % Neutrophils # (1.3-7.7) k/uL Lymphocytes # (1.0-4.8) k/uL Sodium (137-145) mmol/L Potassium (3.5-5.1) mmol/L BUN (9-20) mg/dL Glucose (74-99) mg/dL POC Glucose (mg/dL) 231 H 337 H 261 H (75-99) mg/dL 05/17/19 05/17/19 05/17/19 Range/Units 07:27 07:27 11:19 RBC 3.76 L (4.30-5.90) m/uL Hgb 8.3 L (13.0-17.5) gm/dL Hct 28.4 L (39.0-53.0) % MCV 75.7 L (80.0-100.0) fL MCH 22.2 L (25.0-35.0) pg MCHC 29.3 L (31.0-37.0) g/dL RDW 17.0 H (11.5-15.5) % Neutrophils # 9.1 H (1.3-7.7) k/uL Lymphocytes # 0.4 L (1.0-4.8) k/uL Sodium 128 L (137-145) mmol/L Potassium 5.3 H (3.5-5.1) mmol/L BUN 51 H (9-20) mg/dL Glucose 207 H (74-99) mg/dL POC Glucose (mg/dL) 344 H (75-99) mg/dL Assessment and Plan Assessment: 1. Dyspnea related to acute exacerbation of interstitial lung disease and acute tracheobronchitis. Pulmonary service was consulted. Patient is on prednisone due to ALLERGY to Solu-Medrol. Chest x-ray obtained in ER, impression is moderate pulmonary interstitial fibrosis is unchanged. Per Pulmonary echo done has been ordered 2. Acute tracheobronchitis. Levaquin continued. Sputum sample negative. Mucinex added. 3. Bilateral lower extremity cellulitis. Consulted ID services. Clindamycin discontinued per ID. 4. History of interstitial lung disease/pulmonary fibrosis history of chronic hypoxemic respiratory failure. Patient is maintained on home O2 5. Iron deficiency anemia with blood in stool noted per patient. Patient has required IV iron transfusions in the past. Patient is having rectal bleeding at this time, which is mild and he relates it to hemorrhoids. Patient had a colonoscopy 2 weeks ago at the [facility] in [place] will try to obtain records. Per GI services, no plans for endoscopic evaluation of time. Hydrocortisone topical therapy for local hemorrhoid. Will start patient on ferrous sulfate given low iron studies. 6. History of chronic diastolic congestive heart failure. Last echo completed December 2016. EF between 50 and 55%. Patient maintained on Lasix and Aldactone. 7. History of CAD. Patient underwent cardiac catheterization in August 2017, conclusion normal coronary artery angiogram, normal left ventricle end-diastolic pressure. 8. History of myasthenia gravis. Maintained on pyridostigmine. Follows with neurology outpatient. 9. History of diabetes mellitus type 2. Last hemoglobin A1c of 7.9 (from 10/26/18). Resume home insulin. Add sliding scale coverage. Educated about the importance of a low carb diet. 10. Hypertension essential. Resume home medications with parameters. 11. History of nonalcoholic liver cirrhosis 12. Chronic pain syndrome with morphine pump. Patient follows with Dr. Jernigan 13. History of obstructive sleep apnea. Unable to tolerate home CPAP, patient wears 2 L O2 as needed at home 14. History of seizure disorder. Maintain on Lamictal. Last seizure 2018 per patient. 15. History of GERD with reflux. Maintained on Pepcid and Protonix 16. History of former smoker 17. thrombocytopenia likely secondary to history of liver cirrhosis. Platelet 105 18. Patient is complaining of uncontrolled pain in his upper back lower back and bilateral lower extremities at this time will add [place], patient should return to his pain specialist as outpatient for adjustment of his pain pump or further management of his chronic pain. 19. Acute kidney injury. Creatinine elevated at 1.37 we'll continue to monitor at this time. Creatinine down trending 1.23 20. Diarrhea. Patient has had loose stools for 2 days. Patient mentions having chronic diarrhea at home and maintains on Imodium. He completed a colonoscopy 2 weeks ago at the NH in [place]. Awaiting C. diff collection, patient only had 1 bowel movement overnight with blood present. Continue Imodium as needed. Probiotic ordered per GI. 21. Hyponatremia. Sodium 129. We'll hold Aldactone and Lasix today and repeat labs tomorrow. Patient placed on fluid restriction DVT prophylaxis SCDs due blood in stool and anemia. GI prophylaxis Pepcid Protonix I performed an examination of the patient and discussed their management with the Nurse Practitioner. I have reviewed the Nurse Practitioner's notes and agree with the documented findings and plan of care
--- NOTE | 2019-05-17 15:23 | PN ---
PROGRESS NOTE DATE OF SERVICE: 05/17/2019 REASON FOR FOLLOWUP: 1. Tracheobronchitis. 2. Lower extremity cellulitis. INTERVAL HISTORY: The patient is currently afebrile. Patient is complaining of water restriction and that his throat is dry, wanted to have more watery. The patient denies having any chest pain. Breathing has improved. Occasional cough. No abdominal pain, diarrhea has resolved. Lower extremity swelling has improved and no redness. PHYSICAL EXAMINATION: Blood pressure 103/51 with a pulse of 70, temperature 97.7, he is 99% on 2 L nasal cannula. General description is an elderly male, up in the chair in no distress. RESPIRATORY SYSTEM: Unlabored breathing, decreased breath sounds, no wheeze. HEART: S1, S2. Regular rate and rhythm. ABDOMEN: Soft, no tenderness. Legs with swelling, improved, no redness. LABS: Hemoglobin 8.1, white count 10.4, BUN of 51, creatinine 1.24. DIAGNOSTIC IMPRESSION/PLAN: 1. Patient admitted to hospital with difficulty breathing likely possible tracheobronchitis with more likely pulmonary fibrosis on admission. Patient is being managed by Pulmonary on Levaquin and bronchodilator. 2. resolved. MMODL / IJN: [id number] /
[2019-05-17 17:03] LABS: Glucose,Whole Blood 217 mg/dL (75-99)
[2019-05-17 19:58] LABS: Glucose,Whole Blood 265 mg/dL (75-99)
[2019-05-17] MEDS: INSULIN DETEMIR (LEVEMIR) 100 UNIT/ML SYR SQ SCH (20:53)
[2019-05-18] MEDS: DEXAMETHASONE SOD PHOSPHATE 4 MG/ML 1 ML VIAL IV SCH ×4 (01:15→17:24)
[2019-05-18] MEDS: PYRIDOSTIGMINE 60 MG TAB PO SCH ×6 (01:15→20:30)
[2019-05-18] MEDS ORDERED: FUROSEMIDE 10 MG/ML 2 ML VIAL IV STA (01:32)
[2019-05-18] MEDS: LOPERAMIDE 2 MG CAP PO PRN ×2 (01:58→20:33)
[2019-05-18 05:53] LABS: Anisocytosis Slight; HCT 26.6 % (39.0-53.0); HGB 7.8 gm/dL (13.0-17.5); Hypochromasia Marked; MCHC 29.2 g/dL (31.0-37.0); MCV 75.2 fL (80.0-100.0); Mean Platelet Volume 6.8; Microcytosis Slight; Platelet Count 132 k/uL (150-450); RBC 3.53 m/uL (4.30-5.90); WBC 8.3 k/uL (3.8-10.6)
[2019-05-18 06:06] LABS: Band Neutrophils % 2 %; Lymphocytes # (M) 0.42 k/uL (1.0-4.8); Monocytes # (M) 0.83 k/uL (0-1.0); Neutrophils % (M) 83 %; Nucleated Red Blood Cells 0 /100 WBC (0-0); Total Cells Counted 100
[2019-05-18 06:07] LABS: Albumin 3.3 g/dL (3.5-5.0); Anisocytosis (M) Present; Calcium 9.2 mg/dL (8.4-10.2); Ovalocytes Present; Poikilocytosis (M) Present; Potassium 4.8 mmol/L (3.5-5.1); RBC Fragments Present; Total Bilirubin 0.9 mg/dL (0.2-1.3); Total Protein 5.7 g/dL (6.3-8.2)
[2019-05-18 07:07] LABS: Glucose,Whole Blood 215 mg/dL (75-99)
[2019-05-18] MEDS: Lamivudine [Lamivudine] 300 MG PO SCH (08:40)
[2019-05-18] MEDS: lamoTRIgine 100 MG TAB PO SCH ×2 (08:43→20:31)
[2019-05-18] MEDS: PANTOPRAZOLE 40 MG TABLET PO SCH (08:43)
[2019-05-18] MEDS: predniSONE 20 MG TAB PO SCH (08:43)
[2019-05-18] MEDS: MAGNESIUM OXIDE 400 MG TAB PO SCH (08:43)
[2019-05-18] MEDS: ISOSORBIDE MONONITRATE ER 30 MG TAB.ER.24H PO SCH (08:43)
[2019-05-18] MEDS: MULTIVITAMINS, THERA 1 EACH TAB PO SCH (08:43)
[2019-05-18] MEDS: FERROUS SULFATE 325 MG TAB PO SCH ×2 (08:44→20:30)
[2019-05-18] MEDS: LOSARTAN 50 MG TAB PO SCH (08:44)
[2019-05-18] MEDS: CHOLECALCIFEROL 1,000 UNIT TAB PO SCH (08:44)
[2019-05-18] MEDS: FINASTERIDE 5 MG TAB PO SCH (08:44)
[2019-05-18] MEDS: CYANOCOBALAMIN 500 MCG TAB PO SCH (08:44)
[2019-05-18] MEDS: FAMOTIDINE 20 MG TAB PO SCH ×2 (08:44→20:30)
[2019-05-18] MEDS: LEVOFLOXACIN 500 MG TAB PO SCH (08:44)
[2019-05-18] MEDS: LACTOBACILLUS ACIDOPH & BULGAR 1 EACH PACKET PO SCH ×2 (08:45→20:31)
[2019-05-18] MEDS: INSULIN ASPART (NovoLOG) 100 UNIT/ML VIAL SQ SCH ×6 (08:45→17:24)
[2019-05-18] MEDS: HYDROCORTISONE 2.5% RECTAL CREAM 30 GM TUBE RECTAL SCH ×2 (08:49→20:30)
[2019-05-18] MEDS: SODIUM CHLORIDE 0.9% 1,000 ML IV SCH ×2 (09:05→20:32)
[2019-05-18 11:24] LABS: Glucose,Whole Blood 295 mg/dL (75-99)
[2019-05-18] MEDS: HYDROCORTISONE 1% CREAM 454 GM JAR TOPICAL SCH ×2 (12:15→20:30)
--- NOTE | 2019-05-18 14:11 | P.PN ---
Subjective Progress Note Date: 05/18/19 This is a 73-year-old male patient of Dr. Osorio who presents with worsening shortness of breath over the last couple days. He does mention that he noticed symptoms weeks ago but the last few days have been especially worse. Patient states that the shortness breath is exacerbated by exertion, he has some relief at rest. Patient has had a productive cough, with thick, yellow sputum. He states that he used [id number] cough suppressant which did give him some relief. Today he is sitting up in chair, in no acute distress. He is wearing 2 L of oxygen and states that he wears this at home as needed. He reports having chills at home and states that he has to wear several blankets at night. He also thinks he might have had a low-grade temp but has been afebrile since admission. He denies any chest pain, palpitations. He denies any nausea, vomiting, diarrhea. He denies any urinary frequency or burning. Past medical history includes: Myasthenia gravis, interstitial lung disease, CVA/TIA, diabetes mellitus, liver cirrhosis, myocardial infarction, hypothyroidism, obstructive sleep apnea, GERD with reflux, hearing disorder/deafness, hypertension hyperlipidemia, seizure disorder. On 05/11/2019 patient was seen and examined on the medical floor he is alert and oriented 3 in no apparent distress he is complaining of pain in his upper back, lower back, and both legs. He has a pain pump implanted however he states that his pain is not well controlled he is also still complaining of cough and shortness of breath especially with activity otherwise he denies any complaints there is no fever or chills no headache or dizziness no chest pain no nausea or vomiting no abdominal pain no diarrhea no burning was urination no frequency or urgency no hematuria.. On 05/12/2019 patient was seen and examined on the medical floor he is complaining of rectal bleeding that he relates to hemorrhoids he is complaining of back pain and he is still complaining of cough and shortness of breath and wheezing. Otherwise he denies any complaints there is no fever or chills no headache or dizziness no chest pain nausea or vomiting no abdominal pain no diarrhea no burning was urination no frequency or urgency no hematuria. On 05/13/2019 patient is feeling slightly improved today. Patient still complaining of some shortness of breath and cough. Patient maintained on Mucinex. Patient is alert and oriented 3. Stool for occult blood has been ordered. Patient having cough with positive sputum production. Patient denies chest pain. Patient denies nausea vomiting or diarrhea. Patient denies any urinary burning or frequency 05/14/2019 patient is still having some shortness of breath with sputum production. Patient reports that he is having some blood in stool likely from h emorrhoids. Patient reports he had colonoscopy approximately 3 weeks ago [facility]. Stool for occult blood have been ordered. Patient remains on antibiotics per ID and pulmonary services following. Patient denies chest pain. Patient denies any nausea or vomiting. Patient denies any urinary burning or frequency On 05/15/2019 patient is sitting up at site of bed reporting that his shortness of breath has not improved. Antibiotics maintained. Mucinex as needed. He is still complaining of loose stools this morning with irritation secondary to hemorrhoids. Will continue Imodium. Hydrocortisone topical added for local treatment per GI. No plans for endoscopic evaluation. Patient denies chest pain. Patient denies any nausea or vomiting patient denies any urinary frequency. On 05/16/2019 Patient is up moving around the room. Reports feeling worse today. Patient shortness of breath has not improved and is complaining of lower back pain. Creatinine 1.23 from 1.20. Antibiotics maintained. Per Dr. Walker, patient will receive Decadron 3 doses. Overnight he had one episode of bleeding with bowel movement. Hemoglobin stable. Continue topical management for hemorrhoids. Patient denies chest pain. Patient denies any nausea vomiting or urinary burning or frequency. On 05/17/2019 patient alert and oriented 3. Patient's lung sounds sound slightly improved compared to yesterday. Patient remains on Decadron. Patient's sodium also at 128. Patient placed on fluid restriction due to this issue. Hemoglobin remained stable. Blood sugars elevated due to Decadron and noncompliance with diabetic diet. Patient denies chest pain. Patient is complaining of lower back pain that is chronic for him. Patient does have morphine pain pump along with [place] for breakthrough pain. On 05/18/2019 patient was seen and examined on the medical floor he is complaining of low water intake however his sodium level is down to 127 he has been off diuretics at this time will restart IV fluid normal saline at 50 mL an hour. Patient also is complaining of diarrhea and blood in the stool, we are still awaiting stool sample for C. diff. He is still complaining of cough shortness of breath and wheezing Otherwise he denies any complaints there is no fever or chills no headache or dizziness no chest pain no nausea or vomiting no abdominal pain no burning was urination no frequency or urgency and no hematuria Objective - Vital Signs Vital signs: Vital Signs Temp 96.9 F L 05/18/19 11:24 Pulse 77 05/18/19 11:24 Resp 18 05/18/19 11:24 BP 102/53 05/18/19 11:24 Pulse Ox 97 05/18/19 11:24 Intake & Output 05/17/19 05/18/19 05/18/19 18:59 06:59 18:59 Intake Total 1036 Balance 1036 Weight 120.565 kg 119.2 kg Intake: Oral 1036 Other: Voiding Method Toilet Toilet Toilet Urinal Urinal Urinal # Voids 3 3 # Bowel Movements 2 1 - Exam In general patient is alert and oriented 3 in no apparent distress HEENT head normocephalic and atraumatic Neck is supple no JVD no goiter no lymphadenopathy Chest exam reveals a few scattered crackles no wheezing Cardiac exam reveals regular heart sounds no gallops no murmurs Abdomen is soft nontender no organomegaly with normal bowel sounds Extremity exam reveals 2+ edema with mild erythema and warmth in the pretibial areas Neurological examination reveals no gross focal deficit - Labs CBC & Chem 7: 05/18/19 05:08 05/18/19 05:08 Labs: Abnormal Lab Results - Last 24 Hours (Table) 05/17/19 05/17/19 05/18/19 Range/Units 17:01 19:56 05:08 RBC 3.53 L (4.30-5.90) m/uL Hgb 7.8 L (13.0-17.5) gm/dL Hct 26.6 L (39.0-53.0) % MCV 75.2 L (80.0-100.0) fL MCH 22.0 L (25.0-35.0) pg MCHC 29.2 L (31.0-37.0) g/dL RDW 17.0 H (11.5-15.5) % Plt Count 132 L (150-450) k/uL Lymphocytes # (Manual) 0.42 L (1.0-4.8) k/uL Sodium (137-145) mmol/L Chloride (98-107) mmol/L BUN (9-20) mg/dL Creatinine (0.66-1.25) mg/dL Glucose (74-99) mg/dL POC Glucose (mg/dL) 217 H 265 H (75-99) mg/dL Total Protein (6.3-8.2) g/dL Albumin (3.5-5.0) g/dL 05/18/19 05/18/19 05/18/19 Range/Units 05:08 07:06 11:22 RBC (4.30-5.90) m/uL Hgb (13.0-17.5) gm/dL Hct (39.0-53.0) % MCV (80.0-100.0) fL MCH (25.0-35.0) pg MCHC (31.0-37.0) g/dL RDW (11.5-15.5) % Plt Count (150-450) k/uL Lymphocytes # (Manual) (1.0-4.8) k/uL Sodium 127 L (137-145) mmol/L Chloride 97 L (98-107) mmol/L BUN 64 H (9-20) mg/dL Creatinine 1.39 H (0.66-1.25) mg/dL Glucose 210 H (74-99) mg/dL POC Glucose (mg/dL) 215 H 295 H (75-99) mg/dL Total Protein 5.7 L (6.3-8.2) g/dL Albumin 3.3 L (3.5-5.0) g/dL Assessment and Plan Plan: 1. Dyspnea related to acute exacerbation of interstitial lung disease and acute tracheobronchitis. Pulmonary service was consulted. Patient is on prednisone due to ALLERGY to Solu-Medrol. Chest x-ray obtained in ER, impression is moder ate pulmonary interstitial fibrosis is unchanged. Per Pulmonary echo done has been ordered 2. Acute tracheobronchitis. Levaquin continued. Sputum sample negative. Mucinex added. 3. Bilateral lower extremity cellulitis. Consulted ID services. Clindamycin discontinued per ID. 4. History of interstitial lung disease/pulmonary fibrosis history of chronic hypoxemic respiratory failure. Patient is maintained on home O2 5. Iron deficiency anemia with blood in stool noted per patient. Patient has required IV iron transfusions in the past. Patient is having rectal bleeding at this time, which is mild and he relates it to hemorrhoids. Patient had a colonoscopy 2 weeks ago at the [facility] in [place] will try to obtain records. Per GI services, no plans for endoscopic evaluation of time. Hydrocortisone topical therapy for local hemorrhoid. Will start patient on ferrous sulfate given low iron studies. 6. History of chronic diastolic congestive heart failure. Last echo completed December 2016. EF between 50 and 55%. Patient maintained on Lasix and Aldactone. 7. History of CAD. Patient underwent cardiac catheterization in August 2017, conclusion normal coronary artery angiogram, normal left ventricle end-diastolic pressure. 8. History of myasthenia gravis. Maintained on pyridostigmine. Follows with neurology outpatient. 9. History of diabetes mellitus type 2. Last hemoglobin A1c of 7.9 (from 10/26/18). Resume home insulin. Add sliding scale coverage. Educated about the importance of a low carb diet. 10. Hypertension essential. Resume home medications with parameters. 11. History of nonalcoholic liver cirrhosis 12. Chronic pain syndrome with morphine pump. Patient follows with Dr. Jernigan 13. History of obstructive sleep apnea. Unable to tolerate home CPAP, patient wears 2 L O2 as needed at home 14. History of seizure disorder. Maintain on Lamictal. Last seizure 2017 per patient. 15. History of GERD with reflux. Maintained on Pepcid and Protonix 16. History of former smoker 17. thrombocytopenia likely secondary to history of liver cirrhosis. Platelet 105 18. Patient is complaining of uncontrolled pain in his upper back lower back and bilateral lower extremities at this time will add [place], patient should return to his pain specialist as outpatient for adjustment of his pain pump or further management of his chronic pain. 19. Acute kidney injury. Creatinine elevated at 1.37 we'll continue to monitor at this time. Creatinine down trending 1.23 20. Diarrhea. Patient has had loose stools for 2 days. Patient mentions having chronic diarrhea at home and maintains on Imodium. He completed a colonoscopy 2 weeks ago at the [facility] in [place]. Awaiting C. diff collection, patient only had 1 bowel movement overnight with blood present. Continue Imodium as needed. Probiotic ordered per GI. 21. Hyponatremia. Sodium 127. We'll hold Aldactone and Lasix today and repeat labs tomorrow. Patient placed on fluid restriction DVT prophylaxis SCDs due blood in stool and anemia. GI prophylaxis Pepcid Protonix At this time will add nephrology consult will add normal saline at 50 mL an hour recheck labs and follow-up in a.m.
[2019-05-18 17:02] LABS: Glucose,Whole Blood 267 mg/dL (75-99)
[2019-05-18] MEDS: HYDROcodone/APAP 7.5-325MG 1 EACH TAB PO PRN (17:24)
[2019-05-18 20:30] LABS: Glucose,Whole Blood 386 mg/dL (75-99)
[2019-05-18] MEDS: INSULIN DETEMIR (LEVEMIR) 100 UNIT/ML SYR SQ SCH (20:31)
[2019-05-18] MEDS: guaiFENesin 600 MG TABLET.ER PO PRN (20:33)
[2019-05-19] MEDS: PYRIDOSTIGMINE 60 MG TAB PO SCH ×7 (00:54→22:55)
[2019-05-19] MEDS: DEXAMETHASONE SOD PHOSPHATE 4 MG/ML 1 ML VIAL IV SCH ×4 (00:56→17:19)
[2019-05-19] MEDS: HYDROcodone/APAP 7.5-325MG 1 EACH TAB PO PRN ×3 (00:57→21:20)
--- NOTE | 2019-05-19 01:25 | P.PN ---
Subjective Progress Note Date: 05/18/19 Principal diagnosis: Acute on chronic hypoxic respiratory failure Pulmonary fibrosis Purulent tracheobronchitis Bilateral lower extremity edema Diastolic heart failure acute on chronic Morbid obesity Obstructive sleep apnea Myasthenia gravis stable on Pyridostigmine Hypertension hypertensive cardiovascular disease Thrombocytopenia History of chronic liver disease 05/18/2019, patient seen and evaluated examined during the rounds labs reviewed medications reviewed care plan discussed with the patient and staff at length, still have ongoing intermittent diarrhea and hematochezia GI is following, labs reviewed sodium is 127 patient is on IV fluids with normal saline respiratory status stable denies any shortness of breath, sputum or chest pain 05/16/2019, patient seen eval examined during the rounds breathing relatively more comfortably has more of a back pain that's is however chronic denies any chest pain labs reviewed medications reviewed, patient has been on Decadron This is a 73-year-old morbidly obese male with history of obstructive sleep apnea and myasthenia gravis, patient has a history of pulmonary fibrosis and chronic hypoxic respiratory failure has been on oxygen 2 L nasal cannula, he has chronic lower extremity edema, came into the hospital with progressive shortness of breath for last 2 days getting worse symptoms actually started more than a week ago and lower extremity edema was getting worse does have thick sputum production which is still issues green in color his chest x-ray revealed bilateral pulmonary fibrosis occult pneumonia cannot be excluded patient is on broad-spectrum antibiotics breathing treatment and steroids feels slightly better than before Objective - Vital Signs Vital signs: Vital Signs Temp 96.9 F L 05/18/19 11:24 Pulse 77 05/18/19 11:24 Resp 18 05/18/19 11:24 BP 102/53 05/18/19 11:24 Pulse Ox 97 05/18/19 11:24 Intake & Output 05/17/19 05/18/19 05/18/19 18:59 06:59 18:59 Intake Total 1036 Output Total 400 Balance 1036 -400 Weight 120.565 kg 119.2 kg Intake: Oral 1036 Output: Urine 400 Other: Voiding Method Toilet Toilet Toilet Urinal Urinal Urinal # Voids 3 3 2 # Bowel Movements 2 1 - Exam - Constitutional General appearance: cooperative, disheveled, mild distress, morbidly obese, no acute distress - EENT Eyes: PERRLA, poor dentition Ears: bilateral: normal - Neck Carotids: bilateral: upstroke normal - Respiratory Respiratory: bilateral: diminished, rales (Bilateral dry), negative: CTA, dullness, rhonchi, wheezing, prolonged expiration - Cardiovascular Rhythm: regular Heart sounds: normal: S1, S2 - Gastrointestinal General gastrointestinal: absent bowel sounds - Integumentary Integumentary: normal turgor - Neurologic Neurologic: CNII-XII intact - Musculoskeletal Musculoskeletal: gait normal, generalized weakness, strength equal bilaterally - Psychiatric Psychiatric: A&O x's 3, appropriate affect, intact judgment & insight - Labs CBC & Chem 7: 05/18/19 05:08 05/18/19 05:08 Labs: Abnormal Lab Results - Last 24 Hours (Table) 05/17/19 05/18/19 05/18/19 Range/Units 19:56 05:08 05:08 RBC 3.53 L (4.30-5.90) m/uL Hgb 7.8 L (13.0-17.5) gm/dL Hct 26.6 L (39.0-53.0) % MCV 75.2 L (80.0-100.0) fL MCH 22.0 L (25.0-35.0) pg MCHC 29.2 L (31.0-37.0) g/dL RDW 17.0 H (11.5-15.5) % Plt Count 132 L (150-450) k/uL Lymphocytes # (Manual) 0.42 L (1.0-4.8) k/uL Sodium 127 L (137-145) mmol/L Chloride 97 L (98-107) mmol/L BUN 64 H (9-20) mg/dL Creatinine 1.39 H (0.66-1.25) mg/dL Glucose 210 H (74-99) mg/dL POC Glucose (mg/dL) 265 H (75-99) mg/dL Total Protein 5.7 L (6.3-8.2) g/dL Albumin 3.3 L (3.5-5.0) g/dL 05/18/19 05/18/19 05/18/19 Range/Units 07:06 11:22 17:01 RBC (4.30-5.90) m/uL Hgb (13.0-17.5) gm/dL Hct (39.0-53.0) % MCV (80.0-100.0) fL MCH (25.0-35.0) pg MCHC (31.0-37.0) g/dL RDW (11.5-15.5) % Plt Count (150-450) k/uL Lymphocytes # (Manual) (1.0-4.8) k/uL Sodium (137-145) mmol/L Chloride (98-107) mmol/L BUN (9-20) mg/dL Creatinine (0.66-1.25) mg/dL Glucose (74-99) mg/dL POC Glucose (mg/dL) 215 H 295 H 267 H (75-99) mg/dL Total Protein (6.3-8.2) g/dL Albumin (3.5-5.0) g/dL Assessment and Plan Assessment: Hyponatremia Hematochezia Ongoing intermittent diarrhea Acute on chronic hypoxic respiratory failure Pulmonary fibrosis Purulent tracheobronchitis Bilateral lower extremity edema Diastolic heart failure acute on chronic Morbid obesity Obstructive sleep apnea Myasthenia gravis stable on Pyridostigmine Hypertension hypertensive cardiovascular disease Thrombocytopenia History of chronic liver disease Plan: Continue gentle rehydration Awaiting further recommendation from GI services Monitor off of short course of Decadron Gentle diuresis Broad-spectrum antibiotics with Levaquin which can be discontinued after one or 2 days and monitor off of antibiotics Continue supportive care Breathing treatments Other recommendations pending plan of care as per clinical response of the patient Time with Patient: Greater than 30
[2019-05-19 06:52] LABS: Calcium 8.9 mg/dL (8.4-10.2); Potassium 4.9 mmol/L (3.5-5.1); Total Bilirubin 0.6 mg/dL (0.2-1.3); Total Protein 5.2 g/dL (6.3-8.2)
[2019-05-19 07:03] LABS: Anisocytosis Slight; Basophils % (A) 0 %; Eosinophils % (A) 0 %; HCT 23.4 % (39.0-53.0); Hypochromasia Marked; Lymphocytes # (A) 0.3 k/uL (1.0-4.8); Lymphocytes % (A) 4 %; MCH 22.4 pg (25.0-35.0); MCHC 29.1 g/dL (31.0-37.0); MCV 77.1 fL (80.0-100.0); Mean Platelet Volume 6.2; Microcytosis Slight; Monocytes # (A) 0.2 k/uL (0-1.0); Monocytes % (A) 3 %; Neutrophils # (A) 6.5 k/uL (1.3-7.7); Neutrophils % (A) 92 %; Platelet Count 120 k/uL (150-450); RBC 3.03 m/uL (4.30-5.90); RDW 16.6 % (11.5-15.5)
[2019-05-19 07:13] LABS: HGB 6.8 gm/dL (13.0-17.5)
[2019-05-19 07:14] LABS: Glucose,Whole Blood 193 mg/dL (75-99)
[2019-05-19] MEDS: INSULIN ASPART (NovoLOG) 100 UNIT/ML VIAL SQ SCH ×6 (07:56→17:19)
[2019-05-19] MEDS: LACTOBACILLUS ACIDOPH & BULGAR 1 EACH PACKET PO SCH ×2 (07:57→21:20)
[2019-05-19] MEDS: Lamivudine [Lamivudine] 300 MG PO SCH (07:57)
[2019-05-19] MEDS: ISOSORBIDE MONONITRATE ER 30 MG TAB.ER.24H PO SCH (07:57)
[2019-05-19] MEDS: FINASTERIDE 5 MG TAB PO SCH (07:58)
[2019-05-19] MEDS: CHOLECALCIFEROL 1,000 UNIT TAB PO SCH (07:58)
[2019-05-19] MEDS: FERROUS SULFATE 325 MG TAB PO SCH ×2 (07:58→21:20)
[2019-05-19] MEDS: guaiFENesin 600 MG TABLET.ER PO PRN ×2 (07:58→21:20)
[2019-05-19] MEDS: predniSONE 20 MG TAB PO SCH (07:58)
[2019-05-19] MEDS: FAMOTIDINE 20 MG TAB PO SCH ×2 (07:58→21:20)
[2019-05-19] MEDS: MULTIVITAMINS, THERA 1 EACH TAB PO SCH (07:58)
[2019-05-19] MEDS: PANTOPRAZOLE 40 MG TABLET PO SCH (07:58)
[2019-05-19] MEDS: lamoTRIgine 100 MG TAB PO SCH ×2 (07:58→21:20)
[2019-05-19] MEDS: CYANOCOBALAMIN 500 MCG TAB PO SCH (07:59)
[2019-05-19] MEDS: MAGNESIUM OXIDE 400 MG TAB PO SCH (07:59)
[2019-05-19] MEDS: LEVOFLOXACIN 500 MG TAB PO SCH (07:59)
[2019-05-19] MEDS: LOSARTAN 50 MG TAB PO SCH (07:59)
[2019-05-19 08:06] LABS: Ovalocytes Present
[2019-05-19 08:07] LABS: Poikilocytosis (M) Present
[2019-05-19 08:08] LABS: Polychromasia Present
[2019-05-19] MEDS: HYDROCORTISONE 2.5% RECTAL CREAM 30 GM TUBE RECTAL SCH ×2 (08:10→22:58)
[2019-05-19] MEDS: HYDROCORTISONE 1% CREAM 454 GM JAR TOPICAL SCH ×2 (08:10→21:20)
--- NOTE | 2019-05-19 10:50 | PN ---
PROGRESS NOTE DATE OF SERVICE: 05/19/2019. REASON FOR THE RECONSULTATION: Bloody diarrhea. HISTORY OF PRESENTING ILLNESS: The patient is a 73-year-old white male with history of myasthenia gravis, chronic hepatitis B infection with liver cirrhosis, follows by gasket maker at the [facility]. He has history of COPD and history of interstitial lung disease, was admitted to hospital with severe tracheobronchitis requiring antibiotics. While in the hospital, he has been complaining of intermittent rectal bleeding on and off for the last few months duration. Two weeks ago, he had a colonoscopy done at the [facility] in [place] and according to the patient, he was noted to have a large polyp that was biopsied and also was noted to have diverticulosis and internal hemorrhoids. Since then, he has been having intermittent rectal bleeding. Often bright red blood that happens once or twice a week. However, for the last 2 days he has been having more frequent bleeding. Last night, he had 4 bowel movements, 2 of which had bright red blood per rectum. He also continues to have diarrhea. He dropped his hemoglobin to 6.7 g/dL and receiving 1 unit of PRBC today. He reports no abdominal pain. No nausea, vomiting. His last upper endoscopy was in 2017, was noted to have small gastric and esophageal varices. PHYSICAL EXAMINATION: He appears comfortable. No apparent distress. Vital signs are stable. Blood pressure is 117/66, pulse rate is 73, temperature 97.9. HEENT examination: Unremarkable. Conjunctivae pink. Sclerae anicteric. Oral cavity no lesions. NECK: No JVD or lymph node enlargement. Chest was clear to auscultation. HEART: Regular rate and rhythm. ABDOMEN: Soft. Bowel sounds are positive. No organomegaly. Extremities no pedal edema. Skin no rashes. Neurological: He is alert and oriented x3. No focal deficits. LABS: WBC 7, hemoglobin 6.8, platelets 120, ALT and AST, T-bilirubin and alkaline phosphatase are within normal limits. BUN is 66 and creatinine is 1.19. IMPRESSION: 1. Chronic intermittent diarrhea with intermittent rectal bleeding on and off for the last 1 month duration. However, for the last 2 days, he has been having more frequent bowel movements with bright red blood per rectum. Occasionally has been dark. He dropped his hemoglobin from 8-6.8 g/dL and receiving 1 unit of PRBC transfusion. The patient states that he had a colonoscopy 2 weeks ago at the [facility] in [place] and was noted to have a large colon polyp that was biopsied but could not be removed and small internal hemorrhoids as well as diverticulosis. 2. Chronic hepatitis B infection with liver cirrhosis diagnosed 2 years ago presently maintained on lamivudine and follows with a gasket maker at the [facility] in [place]. 3. History of gastric and esophageal varices noted on upper endoscopy in [address] Wilcox. 4. Acute tracheobronchitis. Patient presently on broad-spectrum antibiotics. RECOMMENDATIONS: 1. Agree with PRBC transfusion. 2. CBC q.12 hours. 3. We will obtain the recent colonoscopy report from the [facility]. 4. With the rising BUN, possibility an upper GI source of bleeding also needs to be considered. He may benefit from an upper endoscopy during this hospitalization, but we will await endoscopy reports prior to scheduling this. 5. Continue with Protonix 40 mg daily. Thank you for this consultation. MMODL / IJN: [id number] /
[2019-05-19 11:13] LABS: Glucose,Whole Blood 339 mg/dL (75-99)
--- NOTE | 2019-05-19 12:11 | P.PN ---
Subjective Progress Note Date: 05/19/19 This is a 73-year-old male patient of Dr. Osorio who presents with worsening shortness of breath over the last couple days. He does mention that he noticed symptoms weeks ago but the last few days have been especially worse. Patient states that the shortness breath is exacerbated by exertion, he has some relief at rest. Patient has had a productive cough, with thick, yellow sputum. He states that he used [id number] cough suppressant which did give him some relief. Today he is sitting up in chair, in no acute distress. He is wearing 2 L of oxygen and states that he wears this at home as needed. He reports having chills at home and states that he has to wear several blankets at night. He also thinks he might have had a low-grade temp but has been afebrile since admission. He denies any chest pain, palpitations. He denies any nausea, vomiting, diarrhea. He denies any urinary frequency or burning. Past medical history includes: Myasthenia gravis, interstitial lung disease, CVA/TIA, diabetes mellitus, liver cirrhosis, myocardial infarction, hypothyroidism, obstructive sleep apnea, GERD with reflux, hearing disorder/deafness, hypertension hyperlipidemia, seizure disorder. On 05/11/2019 patient was seen and examined on the medical floor he is alert and oriented 3 in no apparent distress he is complaining of pain in his upper back, lower back, and both legs. He has a pain pump implanted however he states that his pain is not well controlled he is also still complaining of cough and shortness of breath especially with activity otherwise he denies any complaints there is no fever or chills no headache or dizziness no chest pain no nausea or vomiting no abdominal pain no diarrhea no burning was urination no frequency or urgency no hematuria.. On 05/12/2019 patient was seen and examined on the medical floor he is complaining of rectal bleeding that he relates to hemorrhoids he is complaining of back pain and he is still complaining of cough and shortness of breath and wheezing. Otherwise he denies any complaints there is no fever or chills no headache or dizziness no chest pain nausea or vomiting no abdominal pain no diarrhea no burning was urination no frequency or urgency no hematuria. On 05/13/2019 patient is feeling slightly improved today. Patient still complaining of some shortness of breath and cough. Patient maintained on Mucinex. Patient is alert and oriented 3. Stool for occult blood has been ordered. Patient having cough with positive sputum production. Patient denies chest pain. Patient denies nausea vomiting or diarrhea. Patient denies any urinary burning or frequency 05/14/2019 patient is still having some shortness of breath with sputum production. Patient reports that he is having some blood in stool likely from h emorrhoids. Patient reports he had colonoscopy approximately 3 weeks ago at [facility]. Stool for occult blood have been ordered. Patient remains on antibiotics per ID and pulmonary services following. Patient denies chest pain. Patient denies any nausea or vomiting. Patient denies any urinary burning or frequency On 05/15/2019 patient is sitting up at site of bed reporting that his shortness of breath has not improved. Antibiotics maintained. Mucinex as needed. He is still complaining of loose stools this morning with irritation secondary to hemorrhoids. Will continue Imodium. Hydrocortisone topical added for local treatment per GI. No plans for endoscopic evaluation. Patient denies chest pain. Patient denies any nausea or vomiting patient denies any urinary frequency. On 05/16/2019 Patient is up moving around the room. Reports feeling worse today. Patient shortness of breath has not improved and is complaining of lower back pain. Creatinine 1.23 from 1.20. Antibiotics maintained. Per Dr. Walker, patient will receive Decadron 3 doses. Overnight he had one episode of bleeding with bowel movement. Hemoglobin stable. Continue topical management for hemorrhoids. Patient denies chest pain. Patient denies any nausea vomiting or urinary burning or frequency. On 05/17/2019 patient alert and oriented 3. Patient's lung sounds sound slightly improved compared to yesterday. Patient remains on Decadron. Patient's sodium also at 128. Patient placed on fluid restriction due to this issue. Hemoglobin remained stable. Blood sugars elevated due to Decadron and noncompliance with diabetic diet. Patient denies chest pain. Patient is complaining of lower back pain that is chronic for him. Patient does have morphine pain pump along with Oberlin for breakthrough pain. On 05/18/2019 patient was seen and examined on the medical floor he is complaining of low water intake however his sodium level is down to 127 he has been off diuretics at this time will restart IV fluid normal saline at 50 mL an hour. Patient also is complaining of diarrhea and blood in the stool, we are still awaiting stool sample for C. diff. He is still complaining of cough shortness of breath and wheezing Otherwise he denies any complaints there is no fever or chills no headache or dizziness no chest pain no nausea or vomiting no abdominal pain no burning was urination no frequency or urgency and no hematuria On 05/19/2019 patient is still complaining of diarrhea he is complaining of blood in his stools. He is still complaining of cough and shortness of breath, otherwise he denies any complaints there is no fever or chills no headache or dizziness no chest pain no nausea or vomiting no abdominal pain, no burning with urination no frequency or urgency and no hematuria Objective - Vital Signs Vital signs: Vital Signs Temp 98 F 05/19/19 11: Pulse 79 05/19/19 11:19 Resp 17 05/19/19 11:19 BP 120/58 05/19/19 11:19 Pulse Ox 99 05/19/19 11:19 Intake & Output 05/18/19 05/19/19 05/19/19 18:59 06:59 18:59 Intake Total 400 Output Total 400 Balance -400 400 Weight 120 kg Intake: Intake, IV Titration 400 Amount Sodium Chloride 0.9% 1, 400 000 ml @ 50 mls/hr IV . Q20H [facility] Rx#:[id number] Output: Urine 400 Other: Voiding Method Toilet Toilet Toilet Urinal Urinal Urinal # Voids 2 1 - Exam In general patient is alert and oriented 3 in no apparent distress HEENT head normocephalic and atraumatic Neck is supple no JVD no goiter no lymphadenopathy Chest exam reveals a few scattered crackles no wheezing Cardiac exam reveals regular heart sounds no gallops no murmurs Abdomen is soft nontender no organomegaly with normal bowel sounds Extremity exam reveals 2+ edema with mild erythema and warmth in the pretibial areas Neurological examination reveals no gross focal deficit - Labs CBC & Chem 7: 05/19/19 06:12 05/19/19 06:12 Labs: Abnormal Lab Results - Last 24 Hours (Table) 05/18/19 05/18/19 05/19/19 Range/Units 17:01 20:27 06:12 RBC 3.03 L (4.30-5.90) m/uL Hgb 6.8 L* (13.0-17.5) gm/dL Hct 23.4 L (39.0-53.0) % MCV 77.1 L (80.0-100.0) fL MCH 22.4 L (25.0-35.0) pg MCHC 29.1 L (31.0-37.0) g/dL RDW 16.6 H (11.5-15.5) % Plt Count 120 L (150-450) k/uL Lymphocytes # 0.3 L (1.0-4.8) k/uL Sodium (137-145) mmol/L BUN (9-20) mg/dL Glucose (74-99) mg/dL POC Glucose (mg/dL) 267 H 386 H (75-99) mg/dL Total Protein (6.3-8.2) g/dL Albumin (3.5-5.0) g/dL Crossmatch 05/19/19 05/19/19 05/19/19 Range/Units 06:12 07:12 09:40 RBC (4.30-5.90) m/uL Hgb (13.0-17.5) gm/dL Hct (39.0-53.0) % MCV (80.0-100.0) fL MCH (25.0-35.0) pg MCHC (31.0-37.0) g/dL RDW (11.5-15.5) % Plt Count (150-450) k/uL Lymphocytes # (1.0-4.8) k/uL Sodium 127 L (137-145) mmol/L BUN 66 H (9-20) mg/dL Glucose 169 H (74-99) mg/dL POC Glucose (mg/dL) 193 H (75-99) mg/dL Total Protein 5.2 L (6.3-8.2) g/dL Albumin 3.0 L (3.5-5.0) g/dL Crossmatch See Detail 05/19/19 Range/Units 11:11 RBC (4.30-5.90) m/uL Hgb (13.0-17.5) gm/dL Hct (39.0-53.0) % MCV (80.0-100.0) fL MCH (25.0-35.0) pg MCHC (31.0-37.0) g/dL RDW (11.5-15.5) % Plt Count (150-450) k/uL Lymphocytes # (1.0-4.8) k/uL Sodium (137-145) mmol/L BUN (9-20) mg/dL Glucose (74-99) mg/dL POC Glucose (mg/dL) 339 H (75-99) mg/dL Total Protein (6.3-8.2) g/dL Albumin (3.5-5.0) g/dL Crossmatch Assessment and Plan Plan: 1. Dyspnea related to acute exacerbation of interstitial lung disease and acute tracheobronchitis. Pulmonary service was consulted. Patient is on prednisone due to ALLERGY to Solu-Medrol. Chest x-ray obtained in ER, impression is moderate pulmonary interstitial fibrosis is unchanged. Per Pulmonary echo done has been ordered 2. Acute tracheobronchitis. Levaquin continued. Sputum sample negative. Mucinex added. 3. Bilateral lower extremity cellulitis. Consulted ID services. Clindamycin discontinued per ID. 4. History of interstitial lung disease/pulmonary fibrosis history of chronic hypoxemic respiratory failure. Patient is maintained on home O2 5. Iron deficiency anemia with blood in stool noted per patient. Patient has required IV iron transfusions in the past. Patient is having rectal bleeding at this time, which is mild and he relates it to hemorrhoids. Patient had a colonoscopy 2 weeks ago at the [facility] in [place] will try to obtain records. Per GI services, no plans for endoscopic evaluation of time. Hydrocortisone topical therapy for local hemorrhoid. Will start patient on ferrous sulfate given low iron studies. 6. History of chronic diastolic congestive heart failure. Last echo completed December 2016. EF between 50 and 55%. Patient maintained on Lasix and Aldactone. 7. History of CAD. Patient underwent cardiac catheterization in August 2017, conclusion normal coronary artery angiogram, normal left ventricle end-diastolic pressure. 8. History of myasthenia gravis. Maintained on pyridostigmine. Follows with neurology outpatient. 9. History of diabetes mellitus type 2. Last hemoglobin A1c of 7.9 (from 10/26/18). Resume home insulin. Add sliding scale coverage. Educated about the importance of a low carb diet. 10. Hypertension essential. Resume home medications with parameters. 11. History of nonalcoholic liver cirrhosis 12. Chronic pain syndrome with morphine pump. Patient follows with Dr. Jernigan 13. History of obstructive sleep apnea. Unable to tolerate home CPAP, patient wears 2 L O2 as needed at home 14. History of seizure disorder. Maintain on Lamictal. Last seizure 2018 per patient. 15. History of GERD with reflux. Maintained on Pepcid and Protonix 16. History of former smoker 17. thrombocytopenia likely secondary to history of liver cirrhosis. Platelet 105 18. Patient is complaining of uncontrolled pain in his upper back lower back and bilateral lower extremities at this time will add Oberlin, patient should return to his pain specialist as outpatient for adjustment of his pain pump or further management of his chronic pain. 19. Acute kidney injury. Creatinine elevated at 1.37 we'll continue to monitor at this time. Creatinine down trending 1.23 20. Diarrhea. Patient has had loose stools for 2 days. Patient mentions having chronic diarrhea at home and maintains on Imodium. He completed a colonoscopy 2 weeks ago at the [facility] in [place]. Awaiting C. diff collection, patient only had 1 bowel movement overnight with blood present. Continue Imodium as needed. Probiotic ordered per GI. 21. Hyponatremia. Sodium 127. We'll hold Aldactone and Lasix today and repeat labs tomorrow. Patient placed on fluid restriction DVT prophylaxis SCDs due blood in stool and anemia. GI prophylaxis Pepcid Protonix At this time will add nephrology consult will add normal saline at 50 mL an hour recheck labs and follow-up in a.m. Case was discussed in details with transportation museum helper Dr. Yennifer Gayle, awaiting records of colonoscopy from the [facility] 1 unit of red blood cells was given today, possible repeat colonoscopy in the next 1-2 days, possible EGD if patient continues to be
--- NOTE | 2019-05-19 12:24 | P.NPCON ---
History of Present Illness - Reason for Consult Consult date: 05/19/19 acute renal failure - Chief Complaint Acute kidney injury with edema - History of Present Illness This is a 73-year-old male seen in consultation because of acute kidney injury and severe edema He is known with myasthenia gravis, pulmonary fibrosis, obstructive sleep apnea, chronic liver disease and thrombocytopenia. He came in with worsening shortness of breath. His edema also was worse. In the hospital he was started on Lasix IV and because of acute kidney injury and creatinine going up to 1.37 from a baseline of about 1 his diuretics have been held. His creatinine improved to 1.19 as of this morning. He remains edema this and wants his diuretics were resumed. He does have dizziness on standing up occasionally. He has significant orthostatic changes blood pressure was 124/49 with a heart rate of 76 on standing up blood pressure went down to 104/39 with a heart rate of 121 but he was asymptomatic. No nausea vomiting bowel movements are normal. No fever chills. He is on 2 L nasal cannula In the past she's had cardiac catheterization which are normal on 08/03/2017. Past Medical History Past Medical History: COPD, CVA/TIA, Diabetes Mellitus, Eye Disorder, GERD/Reflux, Hearing Disorder / Deafness, Hyperlipidemia, Hypertension, Liver Disease, Memory Impairment, Pneumonia, Prostate Disorder, Seizure Disorder, Sleep Apnea/CPAP/BIPAP, Thyroid Disorder Additional Past Medical History / Comment(s): Pulmonary fibrosis, COPD, diabetes mellitus, photophobia, impaired hearing, hyperlipidemia, hypertension, liver cirrhosis, BPH, peripheral neuropathy, chronic back pain, chronic cervical pain, difficulty with swallowing, myasthenia gravis, chronic constipation, chronic anemia, history of esophageal and gastric varices related to chronic liver disease, splenomegaly, obstructive sleep apnea and the patient has not been utilizing CPAP treatment. Last Myocardial Infarction Date:: 1989 History of Any Multi-Drug Resistant Organisms: VRE Date of last positivie culture/infection: 05/09/18 MDRO Source:: VRE URINE Past Surgical History: Heart Catheterization, Hernia Repair, Orthopedic Surgery, Tonsillectomy Additional Past Surgical History / Comment(s): EGDs/colonoscopies, RT GREAT TOE JOINT replaced, RT SHOULDER rotator cuff repair. rt and left cataract removals with lens implants, bilateral inguinal hernia repairs & hydrocele repair Past Anesthesia/Blood Transfusion Reactions: Motion Sickness Additional Past Anesthesia/Blood Transfusion Reaction / Comment(s): no hx blood transfusion Past Psychological History: Depression Additional Psychological History / Comment(s): Pt now has his son and son's spouse and 6 children living with him. He uses a cane to ambulate or a walker or scooter. He drives but his car is broken down. He has his son push him in a wheelchair to appts. 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. He has home oxygen and a glucometer. Smoking Status: Former smoker Past Alcohol Use History: None Reported Additional Past Alcohol Use History / Comment(s): quit smoking approx 50 yrs ago,smoked in [place]-very short time and little amount Past Drug Use History: None Reported - Past Family History Mother Family Medical History: Liver Disease, Pneumonia Additional Family Medical History / Comment(s): alcoholism Father Family Medical History: Cancer Additional Family Medical History / Comment(s): Father had lung cancer with mets to brain. He was a nonsmoker but his spouse smoked in the house. Medications and Allergies Home Medications Medication Instructions Recorded Confirmed Type Finasteride [Proscar] 5 mg PO DAILY 04/14/15 05/09/19 History Furosemide [Lasix] 40 mg PO BID 04/14/15 05/09/19 History Insulin Glargine [Lantus] 45 unit SQ HS 04/14/15 05/09/19 History Nitroglycerin Sl Tabs [Nitrostat] 0.4 mg SUBLINGUAL Q5M PRN #50 tab 09/22/16 05/09/19 Rx Losartan [Cozaar] 50 mg PO DAILY 04/04/17 05/09/19 History Pyridostigmine [place] [Mestinon] 60 mg PO Q4H 04/04/17 05/09/19 History Ranitidine HCl [Zantac] 150 mg PO BID 04/04/17 05/09/19 History Insulin Aspart [NovoLOG] See Protocol SQ AC-TID 08/02/17 05/09/19 History Isosorbide Mononitrate ER [Imdur] 90 mg PO DAILY 08/02/17 05/09/19 History Magnesium Oxide [Mag-Ox] 400 mg PO DAILY 08/02/17 05/09/19 History Pantoprazole Sodium [Protonix] 40 mg PO DAILY 08/02/17 05/09/19 History lamoTRIgine [LaMICtal] 100 mg PO BID 08/02/17 05/09/19 History Spironolactone 75 mg PO DAILY 08/29/18 05/09/19 History Albuterol Sulfate [Proair Hfa] 1 puff INHALATION RT-Q4H PRN 10/25/18 05/09/19 History Cholecalciferol [Vitamin D3 (25 1,000 unit PO DAILY 10/25/18 05/09/19 History Mcg = 1000 Iu)] Morphine Pain Pump 1 dose INTRATHECA CONTINUOUS 10/25/18 05/09/19 History lamiVUDine [Lamivudine] 300 mg PO DAILY 10/25/18 05/09/19 History INSULIN ASPART (NovoLOG) [NovoLOG 3 unit SQ AC-TID vial 11/03/18 05/09/19 Rx (formulary)] Cyanocobalamin [Vitamin B-12] 500 mcg PO DAILY 05/09/19 05/09/19 History Loperamide [Imodium] 4 mg PO TID PRN 05/09/19 05/09/19 History Multivitamins, Thera [Multivitamin 1 tab PO DAILY 05/09/19 05/09/19 History (formulary)] Vitamin E 1,000 unit PO DAILY 05/09/19 05/09/19 History predniSONE 10 mg PO DAILY 05/09/19 05/09/19 History Allergies Allergy/AdvReac Type Severity Reaction Status Date / Time methylprednisolone acetate Allergy Severe Anaphylaxis Verified 05/09/19 21:21 [From Depo-Medrol] cephalexin [From Keflex] Allergy Rash/Hives Verified 05/09/19 21:21 cyclobenzaprine Allergy Unknown Verified 05/09/19 21:21 [From Flexeril] metformin Allergy Unknown Verified 05/09/19 21:21 methylprednisolone Allergy Rash/Hives Verified 05/09/19 21:21 [From Depo-Medrol] tolterodine [From Detrol] Allergy Unknown Verified 05/09/19 21:21 duloxetine [From Cymbalta] AdvReac Intense Verified 05/09/19 21:21 Flushing gabapentin [From Neurontin] AdvReac Tremors Verified 05/09/19 21:21 polyethylene glycol AdvReac Confusion Verified 05/09/19 21:21 [From Golytely] polyethylene glycol 3350 AdvReac Confusion Verified 05/09/19 21:21 [From Golytely] potassium chloride AdvReac Confusion Verified 05/09/19 21:21 [From Golytely] pregabalin [From Lyrica] AdvReac Intense Verified 05/09/19 21:21 Flushing sodium [From Golytely] AdvReac Confusion Verified 05/09/19 21:21 sodium bicarbonate AdvReac Confusion Verified 05/09/19 21:21 [From Golytely] sodium chloride AdvReac Confusion Verified 05/09/19 21:21 [From Golytely] sodium sulfate AdvReac Confusion Verified 05/09/19 21:21 [From Golytely] sodium sulfate anhydrous AdvReac Confusion Verified 05/09/19 21:21 [From Golytely] Physical Exam Vitals: Vital Signs Temp Pulse Resp BP Pulse Ox 05/19/19 11:19 98 F 79 17 120/58 99 05/19/19 04:06 97.9 F 73 18 117/66 100 05/18/19 21:00 97.7 F 77 18 117/61 100 Intake and Output 05/18/19 05/19/19 05/19/19 22:59 06:59 14:59 Intake Total 400 0 Output Total 400 Balance -400 400 0 Intake: Intake, IV Titration 400 Amount Sodium Chloride 0.9% 1, 400 000 ml @ 50 mls/hr IV . Q20H [facility], [facility] Rx#:[id number] Blood Product 0 Rc As-1 Unit 0 [id number] Output: Urine 400 Other: Voiding Method Toilet Toilet Urinal Urinal # Voids 1 Weight 120 kg Exam she is awake alert oriented comfortable on 2 L of nasal cannula HEENT exam no JVP neck is supple no facial asymmetry no lymphadenopathy Lungs are significant for occasional coarse crackle at bases not clear but cough Heart sounds are significant for a grade 1-2 systolic ejection murmur. Abdomen soft nontender no organomegaly noted Extremity exam was 2-3+ edema Neurologically awake alert oriented Results - Lab Results Most recent lab results Calcium 8.9 mg/dL (8.4-10.2) 05/19/19 06:12 Magnesium 1.8 mg/dL (1.6-2.3) 05/10/19 09:34 05/19/19 06:12 05/19/19 06:12 Assessment and Plan Assessment: Impression 1. Acute kidney injury secondary to intravascular volume depletion from di uresis improving with discontinuation of the same and on IV normal saline. Significant orthostatic change blood pressure 121/49 with a heart rate of 76 supine, on standing up blood pressure is 104/39 with heart rate of 121 2. Hyponatremia with sodium of 127 secondary to acute kidney injury and di uresis 3. Severe edema secondary to pulmonary hypertension. A urinalysis most recently done is dated 10/25/2018 with no protein. Albumin is 3. Liver function tests are normal. No recent Doppler of the leg vessels have been done but one in 2017 was unremarkable. 4. Myasthenia gravis stable 45. Pulmonary fibrosis, cause of some shortness of breath 6. Severe anemia, hemoglobin 6.8, chronically he is running in the 7-8 range, he has iron deficiency saturation is 2.3% on 05/10/2019. He needs to have GI bleeding ruled out 7. Chronic thrombocytopenia, platelet counts 120,000. Cause not clear Recommendation 1. Agree with holding the diuretics for right now and maintaining small amount of IV fluids normal saline at 50 an hour 2. Expect the sodium to improve IV normal saline 3. Agree with transfusion of 1 unit of blood which might improve his fatigue and shortness of breath as well as the orthostatic changes 4. We will have to resume the diuretics. Next 1-2 days but some smaller doses. Will be assessed tomorrow with orthostatic changes and make a determination Thank you for this consultation we'll continue to follow closely
[2019-05-19 16:33] LABS: Glucose,Whole Blood 234 mg/dL (75-99)
[2019-05-19] MEDS: SODIUM CHLORIDE 0.9% 1,000 ML IV SCH (17:19)
[2019-05-19 20:17] LABS: Glucose,Whole Blood 274 mg/dL (75-99)
[2019-05-19] MEDS: INSULIN DETEMIR (LEVEMIR) 100 UNIT/ML SYR SQ SCH (21:20)
[2019-05-19] MEDS: LOPERAMIDE 2 MG CAP PO PRN (22:55)
[2019-05-20] MEDS: DEXAMETHASONE SOD PHOSPHATE 4 MG/ML 1 ML VIAL IV SCH ×5 (00:47→23:56)
[2019-05-20] MEDS: PYRIDOSTIGMINE 60 MG TAB PO SCH ×6 (03:16→23:56)
--- NOTE | 2019-05-20 05:36 | PN ---
PROGRESS NOTE DATE OF SERVICE: 05/19/2019 REASON FOR FOLLOWUP: 1. Possible tracheobronchitis. 2. Lower extremity cellulitis. 3. Diarrhea. INTERVAL HISTORY: The patient is currently afebrile. The patient has been breathing comfortably. The patient denies having any chest pain. Did have some cough but no worsening. No nausea or vomiting. No abdominal pain. Denies having any worsening diarrhea. PHYSICAL EXAMINATION: Blood pressure is 114/57 with a pulse of 80, temperature of 97.4. He is 99% on room air. General description is an elderly male lying in bed in no distress. RESPIRATORY SYSTEM: Unlabored breathing, decreased breath sounds. No wheeze. HEART: S1, S2. Regular rate and rhythm. ABDOMEN: Soft, no tenderness. LABS: Hemoglobin 6.8, white count 7.0. BUN of 66, creatinine 1.19. DIAGNOSTIC IMPRESSION AND PLAN: 1. Patient admitted to hospital with difficulty breathing which is likely multifactorial in this patient and likely pulmonary fibrosis with possible tracheobronchitis. No evidence of pneumonia. Sputum cultures have been negative. 2. Patient with lower extremity cellulitis, adequately treated. 3. Diarrhea. clinical suspicion of underlying Clostridium difficile. Monitor the patient's clinical course closely. Continue supportive care. MMODL / IJN: [id number] /
[2019-05-20 07:07] LABS: Glucose,Whole Blood 277 mg/dL (75-99)
[2019-05-20] MEDS: INSULIN ASPART (NovoLOG) 100 UNIT/ML VIAL SQ SCH ×6 (07:38→17:40)
[2019-05-20] MEDS: CHOLECALCIFEROL 1,000 UNIT TAB PO SCH (07:39)
[2019-05-20] MEDS: predniSONE 20 MG TAB PO SCH (07:39)
[2019-05-20] MEDS: FAMOTIDINE 20 MG TAB PO SCH ×2 (07:40→21:47)
[2019-05-20] MEDS: FINASTERIDE 5 MG TAB PO SCH (07:40)
[2019-05-20] MEDS: FERROUS SULFATE 325 MG TAB PO SCH ×2 (07:40→21:47)
[2019-05-20] MEDS: ISOSORBIDE MONONITRATE ER 30 MG TAB.ER.24H PO SCH (07:40)
[2019-05-20] MEDS: MULTIVITAMINS, THERA 1 EACH TAB PO SCH (07:41)
[2019-05-20] MEDS: LACTOBACILLUS ACIDOPH & BULGAR 1 EACH PACKET PO SCH ×2 (07:41→21:48)
[2019-05-20] MEDS: CYANOCOBALAMIN 500 MCG TAB PO SCH (07:41)
[2019-05-20] MEDS: LEVOFLOXACIN 500 MG TAB PO SCH (07:41)
[2019-05-20] MEDS: PANTOPRAZOLE 40 MG TABLET PO SCH (07:41)
[2019-05-20] MEDS: MAGNESIUM OXIDE 400 MG TAB PO SCH (07:41)
[2019-05-20] MEDS: LOSARTAN 50 MG TAB PO SCH (07:41)
[2019-05-20] MEDS: lamoTRIgine 100 MG TAB PO SCH ×2 (07:41→21:48)
[2019-05-20] MEDS: HYDROCORTISONE 2.5% RECTAL CREAM 30 GM TUBE RECTAL SCH ×2 (07:43→21:48)
[2019-05-20] MEDS: Lamivudine [Lamivudine] 300 MG PO SCH (07:43)
[2019-05-20] MEDS: HYDROCORTISONE 1% CREAM 454 GM JAR TOPICAL SCH ×2 (07:43→21:48)
[2019-05-20] MEDS: guaiFENesin 600 MG TABLET.ER PO PRN ×2 (07:50→21:49)
--- NOTE | 2019-05-20 08:02 | CDI ---
Documentation Clarification Form Date: 05/16/2019 8:43:00 AM From: Genevieve ErazoFernandezJOYCELYN morrow, CCDS Admit Date: 05/11/2019 5:13:00 PM Patient Name: Duke Sánchez Visit Number: [id number] Discharge Date: ATTENTION: The Clinical Documentation Specialists (CDI) and [facility] Coding Staff appreciate your assistance in clarifying documentation. Please respond to the clarification below the line at the bottom and electronically sign. The CDI & [facility] Coding staff will review the response and follow-up if needed. Please note: Queries are made part of the Legal Health Record. If you have any questions, please contact the author of this message via ITS. Dr. Wilton Walker: Please respond to this query prior to signing, thank you. Per the 05/11 pulmonary progress note: "Possible occult asthma." Per the 05/14 pulmonary progress note: "Bronchospasm secondary to asthma and chronic obstructive pulmonary disease with acute exacerbation." Per the 05/15 pulmonary progress note: "Asthma with acute exacerbation." History/risk factors: Pulmonary fibrosis, Chronic diastolic CHF, CVA, CAD, [place] x2, Myasthenia gravis, DM II, COPD, Hypertension, Hyperlipidemia, Sleep apnea & Former smoker. Home O2 2Lnc. Clinical Indicators: Presented with SOB. Cough with thick, yellow sputum. Low grade temp. Diagnosed with acute exacerbation of interstitial lung disease & acute tracheobronchitis, Acute on chronic hypoxic respiratory failure, Bilateral lower extremity cellulitis. Chronic diastolic CHF & Lower extremity cellulitis. Vital signs: T 97.8, P 79, R 22, BP 135/53, PO 97 RA - 97 2Lnc. RAD: CXR 05/09: Moderate pulmonary interstitial fibrosis unchanged, normal heart. Treatment: IV fluid 100, IV MagSulf, INH Albuterol, po Lasix, po Prednisone, po Aldactone, po Mucinex, IV Clindamycin, po Levaquin & IV Solumedrol. In your professional opinion, can you please further specify the patient's asthma, if known? Severity o Mild intermittent o Mild persistent o Moderate persistent o Severe persistent o Other, please specify ____ o Unable to determine Form or Type o Cough variant o Childhood o Exercise induced bronchospasm o Extrinsic allergic o Idiosyncratic o Intrinsic nonallergic o Late-onset o Mixed o Other, please specify____ o Unable to determine (Last Revision: October 2017) MTDD
--- NOTE | 2019-05-20 09:57 | P.PN ---
Subjective Patient is seen in follow-up for acute kidney injury. Creatinine 1.19 as of yesterday. Oral intake is good. Denies vomiting or diarrhea. He has been voiding. Hemodynamically stable. Vital signs are stable. General: The patient appeared well nourished and normally developed. HEENT: Head exam is unremarkable. Neck is without jugular venous distension. LUNGS: Lungs are clear to auscultation and percussion. Breath sounds decreased. HEART: Rate and Rhythm are regular. First and second heart sounds normal. No murmurs, rubs or gallops. ABDOMEN: Abdominal exam reveals normal bowel sounds. Non-tender and non- distended. No evidence of peritonitis. EXTREMITITES: 1+ edema. Objective - Vital Signs Vital signs: Vital Signs Temp 97.7 F 05/20/19 04:50 Pulse 76 05/20/19 04:50 Resp 20 05/20/19 04:50 BP 121/58 05/20/19 04:50 Pulse Ox 100 05/20/19 04:50 Intake & Output 05/19/19 05/20/19 05/20/19 18:59 06:59 18:59 Intake Total 310 237 Balance 310 237 Intake: Oral 237 Blood Product 310 Rc As-1 Unit 310 [id number] Other: Voiding Method Toilet Toilet Urinal # Voids 4 1 # Bowel Movements 1 1 - Labs CBC & Chem 7: 05/19/19 06:12 05/19/19 06:12 Labs: Abnormal Lab Results - Last 24 Hours (Table) 05/19/19 05/19/19 05/19/19 Range/Units 09:40 11:11 16:32 POC Glucose (mg/dL) 339 H 234 H (75-99) mg/dL Crossmatch See Detail 05/19/19 05/20/19 Range/Units 20:16 07:06 POC Glucose (mg/dL) 274 H 277 H (75-99) mg/dL Crossmatch Assessment and Plan Plan: Assessment: 1. Acute kidney injury mostly prerenal secondary to intravascular volume depletion secondary to diuresis and diarrhea. Improved. Creatinine 1.19 as of yesterday. No proteinuria on UA from March 2019. 2. Hypovolemic hyponatremia. Now appears euvolemic. 3. Acute blood loss anemia status post blood transfusion this admission. Patient had recent colonoscopy done at the [facility]. 4. Chronic hepatitis B with liver cirrhosis. GI following. 5. Benign hypertension. Controlled. 6. Insulin-dependent diabetes mellitus. 7. Acute tracheobronchitis maintain on antibiotics. Infectious disease following. Plan: Hep-Lock IV fluids. Follow-up morning labs. 1200 mL fluid restriction. Encourage oral intake. Avoid nephrotoxins. Can likely resume diuretics in the next 1-2 days. Hold Cozaar if systolic blood pressure less than 120.
[2019-05-20 10:14] LABS: Albumin 3.3 g/dL (3.5-5.0); Anisocytosis Slight; Basophils % (A) 0 %; Calcium 9.1 mg/dL (8.4-10.2); Eosinophils % (A) 0 %; HCT 27.4 % (39.0-53.0); HGB 8.2 gm/dL (13.0-17.5); Hypochromasia Marked; Lymphocytes # (A) 0.2 k/uL (1.0-4.8); Lymphocytes % (A) 2 %; MCH 23.2 pg (25.0-35.0); MCV 77.3 fL (80.0-100.0); Mean Platelet Volume 7.2; Microcytosis Slight; Monocytes # (A) 0.4 k/uL (0-1.0); Monocytes % (A) 4 %; Neutrophils # (A) 9.6 k/uL (1.3-7.7); Neutrophils % (A) 94 %; Platelet Count 136 k/uL (150-450); Poikilocytosis Slight; Potassium 4.8 mmol/L (3.5-5.1); RBC 3.54 m/uL (4.30-5.90); RDW 16.7 % (11.5-15.5); Total Bilirubin 1.1 mg/dL (0.2-1.3); Total Protein 5.6 g/dL (6.3-8.2); WBC 10.3 k/uL (3.8-10.6)
[2019-05-20 11:11] LABS: Glucose,Whole Blood 242 mg/dL (75-99)
--- NOTE | 2019-05-20 11:22 | P.PN ---
Subjective Progress Note Date: 05/20/19 This is a 73-year-old male patient of Dr. Osorio who presents with worsening shortness of breath over the last couple days. He does mention that he noticed symptoms weeks ago but the last few days have been especially worse. Patient states that the shortness breath is exacerbated by exertion, he has some relief at rest. Patient has had a productive cough, with thick, yellow sputum. He states that he used [id number] cough suppressant which did give him some relief. Today he is sitting up in chair, in no acute distress. He is wearing 2 L of oxygen and states that he wears this at home as needed. He reports having chills at home and states that he has to wear several blankets at night. He also thinks he might have had a low-grade temp but has been afebrile since admission. He denies any chest pain, palpitations. He denies any nausea, vomiting, diarrhea. He denies any urinary frequency or burning. Past medical history includes: Myasthenia gravis, interstitial lung disease, CVA/TIA, diabetes mellitus, liver cirrhosis, myocardial infarction, hypothyroidism, obstructive sleep apnea, GERD with reflux, hearing disorder/deafness, hypertension hyperlipidemia, seizure disorder. On 05/11/2019 patient was seen and examined on the medical floor he is alert and oriented 3 in no apparent distress he is complaining of pain in his upper back, lower back, and both legs. He has a pain pump implanted however he states that his pain is not well controlled he is also still complaining of cough and shortness of breath especially with activity otherwise he denies any complaints there is no fever or chills no headache or dizziness no chest pain no nausea or vomiting no abdominal pain no diarrhea no burning was urination no frequency or urgency no hematuria.. On 05/12/2019 patient was seen and examined on the medical floor he is complaining of rectal bleeding that he relates to hemorrhoids he is complaining of back pain and he is still complaining of cough and shortness of breath and wheezing. Otherwise he denies any complaints there is no fever or chills no headache or dizziness no chest pain nausea or vomiting no abdominal pain no diarrhea no burning was urination no frequency or urgency no hematuria. On 05/13/2019 patient is feeling slightly improved today. Patient still complaining of some shortness of breath and cough. Patient maintained on Mucinex. Patient is alert and oriented 3. Stool for occult blood has been ordered. Patient having cough with positive sputum production. Patient denies chest pain. Patient denies nausea vomiting or diarrhea. Patient denies any urinary burning or frequency 05/14/2019 patient is still having some shortness of breath with sputum production. Patient reports that he is having some blood in stool likely from hemorrhoids. Patient reports he had colonoscopy approximately 3 weeks ago at [facility]. Stool for occult blood have been ordered. Patient remains on antibiotics per ID and pulmonary services following. Patient denies chest pain. Patient denies any nausea or vomiting. Patient denies any urinary burning or frequency On 05/15/2019 patient is sitting up at site of bed reporting that his shortness of breath has not improved. Antibiotics maintained. Mucinex as needed. He is still complaining of loose stools this morning with irritation secondary to hemorrhoids. Will continue Imodium. Hydrocortisone topical added for local treatment per GI. No plans for endoscopic evaluation. Patient denies chest pain. Patient denies any nausea or vomiting patient denies any urinary frequency. On 05/16/2019 Patient is up moving around the room. Reports feeling worse today. Patient shortness of breath has not improved and is complaining of lower back pain. Creatinine 1.23 from 1.20. Antibiotics maintained. Per Dr. Walker, patient will receive Decadron 3 doses. Overnight he had one episode of bleeding with bowel movement. Hemoglobin stable. Continue topical management for hemorrhoids. Patient denies chest pain. Patient denies any nausea vomiting or urinary burning or frequency. On 05/17/2019 patient alert and oriented 3. Patient's lung sounds sound slightly improved compared to yesterday. Patient remains on Decadron. Patient's sodium also at 128. Patient placed on fluid restriction due to this issue. Hemoglobin remained stable. Blood sugars elevated due to Decadron and noncompliance with diabetic diet. Patient denies chest pain. Patient is complaining of lower back pain that is chronic for him. Patient does have morphine pain pump along with [place] for breakthrough pain. On 05/18/2019 patient was seen and examined on the medical floor he is complaining of low water intake however his sodium level is down to 127 he has been off diuretics at this time will restart IV fluid normal saline at 50 mL an hour. Patient also is complaining of diarrhea and blood in the stool, we are still awaiting stool sample for C. diff. He is still complaining of cough shortness of breath and wheezing Otherwise he denies any complaints there is no fever or chills no headache or dizziness no chest pain no nausea or vomiting no abdominal pain no burning was urination no frequency or urgency and no hematuria On 05/19/2019 patient is still complaining of diarrhea he is complaining of blood in his stools. He is still complaining of cough and shortness of breath, otherwise he denies any complaints there is no fever or chills no headache or dizziness no chest pain no nausea or vomiting no abdominal pain, no burning with urination no frequency or urgency and no hematuria On 05/20/2019 patient is alert and oriented 3. Patient is still having some diarrhea with bleeding from hemorrhoids. Hemoglobin improving to 8.2. GI services following. Patient is still short of breath with activity patient remains on Decadron. Sodium improving to 129. Nephrology services following. Patient denies chest pain. Patient denies nausea or vomiting. Patient denies any urinary burning frequency. C. diff sample has been ordered. Discussed with nursing staff Objective - Vital Signs Vital signs: Vital Signs Temp 97.7 F 05/20/19 04:50 Pulse 76 05/20/19 04:50 Resp 20 05/20/19 04:50 BP 121/58 05/20/19 04:50 Pulse Ox 100 05/20/19 04:50 Intake & Output 05/19/19 05/20/19 05/20/19 18:59 06:59 18:59 Intake Total 310 237 Balance 310 237 Intake: Oral 237 Blood Product 310 Rc As-1 Unit 310 [id number] Other: Voiding Method Toilet Toilet Urinal # Voids 4 1 # Bowel Movements 1 1 - Exam In general patient is alert and oriented 3 in no apparent distress HEENT head normocephalic and atraumatic Neck is supple no JVD no goiter no lymphadenopathy Chest exam reveals a few scattered crackles no wheezing Cardiac exam reveals regular heart sounds no gallops no murmurs Abdomen is soft nontender no organomegaly with normal bowel sounds Extremity exam reveals 2+ edema with mild erythema and warmth in the pretibial areas Neurological examination reveals no gross focal deficit - Labs CBC & Chem 7: 05/20/19 09:05 05/20/19 09:05 Labs: Abnormal Lab Results - Last 24 Hours (Table) 05/19/19 05/19/19 05/19/19 Range/Units 09:40 16:32 20:16 RBC (4.30-5.90) m/uL Hgb (13.0-17.5) gm/dL Hct (39.0-53.0) % MCV (80.0-100.0) fL MCH (25.0-35.0) pg MCHC (31.0-37.0) g/dL RDW (11.5-15.5) % Plt Count (150-450) k/uL Sodium (137-145) mmol/L BUN (9-20) mg/dL Glucose (74-99) mg/dL POC Glucose (mg/dL) 234 H 274 H (75-99) mg/dL Total Protein (6.3-8.2) g/dL Albumin (3.5-5.0) g/dL Crossmatch See Detail 05/20/19 05/20/19 05/20/19 Range/Units 07:06 09:05 09:05 RBC 3.54 L (4.30-5.90) m/uL Hgb 8.2 L (13.0-17.5) gm/dL Hct 27.4 L (39.0-53.0) % MCV 77.3 L (80.0-100.0) fL MCH 23.2 L (25.0-35.0) pg MCHC 30.0 L (31.0-37.0) g/dL RDW 16.7 H (11.5-15.5) % Plt Count 136 L (150-450) k/uL Sodium 129 L (137-145) mmol/L BUN 48 H (9-20) mg/dL Glucose 207 H (74-99) mg/dL POC Glucose (mg/dL) 277 H (75-99) mg/dL Total Protein 5.6 L (6.3-8.2) g/dL Albumin 3.3 L (3.5-5.0) g/dL Crossmatch 05/20/19 Range/Units 11:09 RBC (4.30-5.90) m/uL Hgb (13.0-17.5) gm/dL Hct (39.0-53.0) % MCV (80.0-100.0) fL MCH (25.0-35.0) pg MCHC (31.0-37.0) g/dL RDW (11.5-15.5) % Plt Count (150-450) k/uL Sodium (137-145) mmol/L BUN (9-20) mg/dL Glucose (74-99) mg/dL POC Glucose (mg/dL) 242 H (75-99) mg/dL Total Protein (6.3-8.2) g/dL Albumin (3.5-5.0) g/dL Crossmatch Assessment and Plan Assessment: 1. Dyspnea related to acute exacerbation of interstitial lung disease and acute tracheobronchitis. Pulmonary service was consulted. Patient is on prednisone due to ALLERGY to Solu-Medrol. Chest x-ray obtained in ER, impression is moderate pulmonary interstitial fibrosis is unchanged. Per Pulmonary patient maintained on Decadron 2. Acute tracheobronchitis. Levaquin continued. Sputum sample negative. Mucinex added. 3. Bilateral lower extremity cellulitis. Consulted ID services. Clindamycin discontinued per ID. 4. History of interstitial lung disease/pulmonary fibrosis history of chronic hypoxemic respiratory failure. Patient is maintained on home O2 5. Iron deficiency anemia with blood in stool noted per patient. Patient has required IV iron transfusions in the past. Patient is having rectal bleeding at this time, which is mild and he relates it to hemorrhoids. Patient had a colonoscopy 2 weeks ago at the [facility] in [place] will try to obtain records. Per GI services, Hydrocortisone topical therapy for local hemorrhoid. Will start patient on ferrous sulfate given low iron studies. 1 unit of PRBCs given. Per GI services awaiting records of colonoscopy from [facility] possible repeat colonoscopy and EGD 6. History of chronic diastolic congestive heart failure. Last echo completed December 2016. EF between 50 and 55%. Patient maintained on Lasix and Aldactone. Diuretics currently on hold due to hyponatremia 7. History of CAD. Patient underwent cardiac catheterization in August 2017, conclusion normal coronary artery angiogram, normal left ventricle end-diastolic pressure. 8. History of myasthenia gravis. Maintained on pyridostigmine. Follows with neurology outpatient. 9. History of diabetes mellitus type 2. Last hemoglobin A1c of 7.9 (from 10/26/18). Resume home insulin. Add sliding scale coverage. Educated about the importance of a low carb diet. 10. Hypertension essential. Resume home medications with parameters. 11. History of nonalcoholic liver cirrhosis 12. Chronic pain syndrome with morphine pump. Patient follows with Dr. Jernigan 13. History of obstructive sleep apnea. Unable to tolerate home CPAP, patient wears 2 L O2 as needed at home 14. History of seizure disorder. Maintain on Lamictal. Last seizure 2018 per patient. 15. History of GERD with reflux. Maintained on Pepcid and Protonix 16. History of former smoker 17. thrombocytopenia likely secondary to history of liver cirrhosis. 18. Patient is complaining of uncontrolled pain in his upper back lower back and bilateral lower extremities at this time will add [place], patient should return to his pain specialist as outpatient for adjustment of his pain pump or further management of his chronic pain. 19. Acute kidney injury. Creatinine elevated at 1.37 we'll continue to monitor at this time. Creatinine down trending 1.23 20. Diarrhea. Patient has had loose stools for 2 days. Patient mentions having chronic diarrhea at home and maintains on Imodium. He completed a colonoscopy 2 weeks ago at the [facility] [place]. Awaiting C. diff collection, patient only had 1 bowel movement overnight with blood present. Continue Imodium as needed. Probiotic ordered per GI. Stool for C. diff has been ordered 21. Hyponatremia. Sodium 127. We'll hold Aldactone and Lasix today and repeat labs tomorrow. Patient placed on fluid restriction. Patient was started on normal saline at 50. Nephrology services are following. Sodium improving to 129. Fluids currently locked per nephro DVT prophylaxis SCDs due blood in stool and anemia. GI prophylaxis Pepcid Protonix I performed an examination of the patient and discussed their management with the Nurse Practitioner. I have reviewed the Nurse Practitioner's notes and agree with the documented findings and plan of care
[2019-05-20] MEDS: SODIUM CHLORIDE 0.9% 1,000 ML IV SCH (11:38)
[2019-05-20 17:12] LABS: Glucose,Whole Blood 238 mg/dL (75-99)
--- NOTE | 2019-05-20 17:40 | PN ---
PROGRESS NOTE DATE OF DICTATION: 05/20/2019 This patient is a 73-year-old pleasant white male with history of chronic hepatitis B infection, maintained on lamivudine, and cirrhosis of the liver. He was admitted to the hospital because of acute tracheobronchitis. Since being in the hospital, he has been having intermittent bleeding, occasionally dark in color. Occasionally it is maroon- colored. He dropped his hemoglobin to 6.5 g/dL and he received a unit of blood transfusion yesterday. He did have a colonoscopy at [facility] 2 weeks ago, reports of which were available today, and upon review of the report, he did have multiple small colon polyps that were removed, which all revealed adenoma, which were all less than 1 cm in size. He also had biopsies done for ongoing diarrhea which did not show any evidence of colitis. He had one bowel movement this morning which had streaks of blood in it. He denies any abdominal pain. No nausea or vomiting. PHYSICAL EXAMINATION: He appears comfortable. No apparent distress. VITAL SIGNS: Stable. Blood pressure is 132/86, pulse rate 76, temperature 97.6. HEENT examination unremarkable. Conjunctivae pink. Sclerae anicteric. Oral cavity no lesions. NECK: No JVD or lymph node enlargement. CHEST: Clear to auscultation. HEART: Regular rate and rhythm. ABDOMEN: Soft. Bowel sounds are positive. No organomegaly. EXTREMITIES: No pedal edema. SKIN: No rashes. Multiple bruises on both upper extremities. NEUROLOGIC: Alert and oriented x3. No focal deficits. LABS: Labs from today show WBC 10.3, hemoglobin 8.2. Platelets are normal at 136, MCV 77. BUN is 48, creatinine 1.05. IMPRESSION: 1. Diarrhea with intermittent bleeding, occasionally dark and tarry and occasionally maroon-colored stools on and off for the last few days' duration. Recent colonoscopy at [facility] did show evidence of small subcentimeter colon polyps that were removed, but no evidence of colitis noted. He did have some diverticulosis and hemorrhoids seen. At this time, possibility of an upper source of GI bleeding cannot be excluded, especially given the elevated BUN noted during this hospitalization. 2. Cirrhosis of the liver secondary to chronic hepatitis B infection, maintained on lamivudine. He follows at [facility] in [place]. 3. Acute tracheobronchitis, on broad-spectrum antibiotics. RECOMMENDATIONS: Discussed with the patient recent colonoscopy results. At this time will proceed with an upper endoscopy tomorrow. In the meantime, monitor CBC on a daily basis. Continue with Protonix 40 mg daily and we will follow with you closely. Thank you for this consultation. MARISOLL / IJN: [id number] /
[2019-05-20 20:27] LABS: Glucose,Whole Blood 198 mg/dL (75-99)
--- NOTE | 2019-05-20 20:46 | PN ---
PROGRESS NOTE DATE OF SERVICE: 05/20/2019 Duke Sánchez was seen again on 05/20/2019. He continues to have shortness of breath and wheezing. He feels like he is worse. His sputum has become clear but remains thick. On physical examination, his respiratory rate is 20, pulse rate of 76, temperature 97.6, blood pressure 142/65. HEENT reveals no new changes. Chest reveals prolonged exhalation with expiratory wheeze. Cardiovascular system is in S1, S2. Abdomen is soft. There is 1+ pedal edema. White count is 10.3, hemoglobin 10.2. Sodium 129, potassium 4.8, chloride 102, bicarb 23, BUN 48, creatinine 1.05. IMPRESSION AT THIS TIME: 1. Lung fibrosis. 2. Asthma with chronic obstructive pulmonary disease with acute exacerbation. 3. Severe anemia requiring blood transfusion. At this point in time, follow his hemoglobin closely. Continue him on dexamethasone with albuterol. Continue Levaquin. Continue bronchodilators. Add montelukast to his regimen. Depending on how he does, we shall make further changes to his care. He was counseled regarding his condition. MMODL / IJN: [id number] /
[2019-05-20] MEDS: INSULIN DETEMIR (LEVEMIR) 100 UNIT/ML SYR SQ SCH (21:48)
[2019-05-20] MEDS: MONTELUKAST 10 MG TAB PO SCH (21:49)
[2019-05-21] MEDS: PYRIDOSTIGMINE 60 MG TAB PO SCH ×6 (03:29→23:28)
[2019-05-21] MEDS: DEXAMETHASONE SOD PHOSPHATE 4 MG/ML 1 ML VIAL IV SCH (05:57)
[2019-05-21 07:09] LABS: Glucose,Whole Blood 97 mg/dL (75-99)
[2019-05-21] MEDS: LACTOBACILLUS ACIDOPH & BULGAR 1 EACH PACKET PO SCH ×2 (08:05→21:56)
[2019-05-21] MEDS: INSULIN ASPART (NovoLOG) 100 UNIT/ML VIAL SQ SCH ×6 (08:05→17:35)
[2019-05-21] MEDS: CYANOCOBALAMIN 500 MCG TAB PO SCH (08:06)
[2019-05-21] MEDS: CHOLECALCIFEROL 1,000 UNIT TAB PO SCH (08:06)
[2019-05-21] MEDS: Lamivudine [Lamivudine] 300 MG PO SCH (08:06)
[2019-05-21] MEDS: MAGNESIUM OXIDE 400 MG TAB PO SCH (08:07)
[2019-05-21] MEDS: MULTIVITAMINS, THERA 1 EACH TAB PO SCH (08:07)
[2019-05-21] MEDS: FERROUS SULFATE 325 MG TAB PO SCH ×2 (08:07→21:57)
[2019-05-21 08:22] LABS: Anisocytosis Slight; Basophils % (A) 0 %; Eosinophils % (A) 0 %; HGB 8.7 gm/dL (13.0-17.5); Hypochromasia Marked; Lymphocytes # (A) 0.2 k/uL (1.0-4.8); Lymphocytes % (A) 3 %; MCH 23.8 pg (25.0-35.0); MCHC 31.3 g/dL (31.0-37.0); MCV 76.2 fL (80.0-100.0); Mean Platelet Volume 6.6; Microcytosis Slight; Monocytes # (A) 0.3 k/uL (0-1.0); Monocytes % (A) 4 %; Neutrophils # (A) 7.7 k/uL (1.3-7.7); Neutrophils % (A) 93 %; Platelet Count 124 k/uL (150-450); RBC 3.67 m/uL (4.30-5.90); RDW 17.3 % (11.5-15.5); WBC 8.4 k/uL (3.8-10.6)
[2019-05-21] MEDS: LOSARTAN 50 MG TAB PO SCH (08:27)
[2019-05-21] MEDS: ISOSORBIDE MONONITRATE ER 30 MG TAB.ER.24H PO SCH (08:27)
[2019-05-21] MEDS: predniSONE 20 MG TAB PO SCH (08:27)
[2019-05-21 08:28] LABS: ALT 48 U/L (21-72); AST 47 U/L (17-59); African American GFR (CKD) >90 (>60 ml/min/1.73 sqM); Albumin 3.2 g/dL (3.5-5.0); Alkaline Phosphatase 59 U/L (38-126); Anion Gap 4 mmol/L; Blood Urea Nitrogen 41 mg/dL (9-20); Calcium 9.4 mg/dL (8.4-10.2); Carbon Dioxide 24 mmol/L (22-30); Chloride 104 mmol/L (98-107); Glucose 79 mg/dL (74-99); Non-African American GFR(CKD) 81 (>60 ml/min/1.73 sqM); Potassium 4.5 mmol/L (3.5-5.1); Sodium 132 mmol/L (137-145); Total Bilirubin 1.4 mg/dL (0.2-1.3); Total Protein 5.6 g/dL (6.3-8.2)
[2019-05-21] MEDS: FINASTERIDE 5 MG TAB PO SCH (08:28)
[2019-05-21] MEDS: PANTOPRAZOLE 40 MG TABLET PO SCH (08:28)
[2019-05-21] MEDS: FAMOTIDINE 20 MG TAB PO SCH ×2 (08:28→21:57)
[2019-05-21] MEDS: lamoTRIgine 100 MG TAB PO SCH ×2 (08:28→21:57)
[2019-05-21] MEDS: LEVOFLOXACIN 500 MG TAB PO SCH (08:29)
[2019-05-21] MEDS: HYDROCORTISONE 2.5% RECTAL CREAM 30 GM TUBE RECTAL SCH ×2 (08:29→21:58)
[2019-05-21] MEDS: HYDROCORTISONE 1% CREAM 454 GM JAR TOPICAL SCH ×2 (08:29→21:58)
--- NOTE | 2019-05-21 08:38 | P.PN ---
Subjective Patient is seen in follow-up for acute kidney injury. Renal function is improved. Creatinine 0.93 today. Sodium level is also up to 132 today. Oral intake is good. Denies vomiting or diarrhea. He has been voiding. Hemodynamically stable. Vital signs are stable. General: The patient appeared well nourished and normally developed. HEENT: Head exam is unremarkable. Neck is without jugular venous distension. LUNGS: Lungs are clear to auscultation and percussion. Breath sounds decreased. HEART: Rate and Rhythm are regular. First and second heart sounds normal. No murmurs, rubs or gallops. ABDOMEN: Abdominal exam reveals normal bowel sounds. Non-tender and non- distended. No evidence of peritonitis. EXTREMITITES: 1+ edema. Objective - Vital Signs Vital signs: Vital Signs Temp 97.9 F 05/21/19 05:00 Pulse 74 05/21/19 05:00 Resp 16 05/21/19 05:00 BP 139/53 05/21/19 05:00 Pulse Ox 98 05/21/19 05:00 Intake & Output 05/20/19 05/21/19 05/21/19 18:59 06:59 18:59 Intake Total 300 590 Balance 300 590 Intake: Intake, IV Titration 300 Amount Sodium Chloride 0.9% 1, 300 000 ml @ 50 mls/hr IV . Q20H [facility] Rx#:[id number] Oral 590 Other: Voiding Method Toilet # Voids 2 # Bowel Movements 2 - Labs CBC & Chem 7: 05/21/19 07:30 05/21/19 07:30 Labs: Abnormal Lab Results - Last 24 Hours (Table) 05/20/19 05/20/19 05/20/19 Range/Units 09:05 09:05 11:09 RBC 3.54 L (4.30-5.90) m/uL Hgb 8.2 L (13.0-17.5) gm/dL Hct 27.4 L (39.0-53.0) % MCV 77.3 L (80.0-100.0) fL MCH 23.2 L (25.0-35.0) pg MCHC 30.0 L (31.0-37.0) g/dL RDW 16.7 H (11.5-15.5) % Plt Count 136 L (150-450) k/uL Neutrophils # 9.6 H (1.3-7.7) k/uL Lymphocytes # 0.2 L (1.0-4.8) k/uL Sodium 129 L (137-145) mmol/L BUN 48 H (9-20) mg/dL Glucose 207 H (74-99) mg/dL POC Glucose (mg/dL) 242 H (75-99) mg/dL Total Bilirubin (0.2-1.3) mg/dL Total Protein 5.6 L (6.3-8.2) g/dL Albumin 3.3 L (3.5-5.0) g/dL 05/20/19 05/20/19 05/21/19 Range/Units 17:10 20:26 07:30 RBC 3.67 L (4.30-5.90) m/uL Hgb 8.7 L (13.0-17.5) gm/dL Hct 28.0 L (39.0-53.0) % MCV 76.2 L (80.0-100.0) fL MCH 23.8 L (25.0-35.0) pg MCHC (31.0-37.0) g/dL RDW 17.3 H (11.5-15.5) % Plt Count 124 L (150-450) k/uL Neutrophils # (1.3-7.7) k/uL Lymphocytes # 0.2 L (1.0-4.8) k/uL Sodium (137-145) mmol/L BUN (9-20) mg/dL Glucose (74-99) mg/dL POC Glucose (mg/dL) 238 H 198 H (75-99) mg/dL Total Bilirubin (0.2-1.3) mg/dL Total Protein (6.3-8.2) g/dL Albumin (3.5-5.0) g/dL 05/21/19 Range/Units 07:30 RBC (4.30-5.90) m/uL Hgb (13.0-17.5) gm/dL Hct (39.0-53.0) % MCV (80.0-100.0) fL MCH (25.0-35.0) pg MCHC (31.0-37.0) g/dL RDW (11.5-15.5) % Plt Count (150-450) k/uL Neutrophils # (1.3-7.7) k/uL Lymphocytes # (1.0-4.8) k/uL Sodium 132 L (137-145) mmol/L BUN 41 H (9-20) mg/dL Glucose (74-99) mg/dL POC Glucose (mg/dL) (75-99) mg/dL Total Bilirubin 1.4 H (0.2-1.3) mg/dL Total Protein 5.6 L (6.3-8.2) g/dL Albumin 3.2 L (3.5-5.0) g/dL Assessment and Plan Plan: Assessment: 1. Acute kidney injury mostly prerenal secondary to intravascular volume depletion secondary to diuresis and diarrhea. Improved. Creatinine 0.93 today. No proteinuria on UA from March 2019. 2. Hypovolemic hyponatremia. Now appears euvolemic. Better. 3. Acute blood loss anemia status post blood transfusion this admission. Patient had recent colonoscopy done at the [facility]. 4. Chronic hepatitis B with liver cirrhosis. GI following. 5. Benign hypertension. Controlled. 6. Insulin-dependent diabetes mellitus. 7. Acute tracheobronchitis maintain on antibiotics. Infectious disease following. 8. Lower extremity edema. Plan: 1200 mL fluid restriction. Start Lasix 40 mg orally once today. Encourage oral intake. Avoid nephrotoxins. Hold Cozaar if systolic blood pressure less than 120. Scheduled for EGD today.
--- NOTE | 2019-05-21 09:49 | P.PN ---
Subjective Progress Note Date: 05/21/19 This is a 73-year-old male patient of Dr. Osorio who presents with worsening shortness of breath over the last couple days. He does mention that he noticed symptoms weeks ago but the last few days have been especially worse. Patient states that the shortness breath is exacerbated by exertion, he has some relief at rest. Patient has had a productive cough, with thick, yellow sputum. He states that he used [id number] cough suppressant which did give him some relief. Today he is sitting up in chair, in no acute distress. He is wearing 2 L of oxygen and states that he wears this at home as needed. He reports having chills at home and states that he has to wear several blankets at night. He also thinks he might have had a low-grade temp but has been afebrile since admission. He denies any chest pain, palpitations. He denies any nausea, vomiting, diarrhea. He denies any urinary frequency or burning. Past medical history includes: Myasthenia gravis, interstitial lung disease, CVA/TIA, diabetes mellitus, liver cirrhosis, myocardial infarction, hypothyroidism, obstructive sleep apnea, GERD with reflux, hearing disorder/deafness, hypertension hyperlipidemia, seizure disorder. On 05/11/2019 patient was seen and examined on the medical floor he is alert and oriented 3 in no apparent distress he is complaining of pain in his upper back, lower back, and both legs. He has a pain pump implanted however he states that his pain is not well controlled he is also still complaining of cough and shortness of breath especially with activity otherwise he denies any complaints there is no fever or chills no headache or dizziness no chest pain no nausea or vomiting no abdominal pain no diarrhea no burning was urination no frequency or urgency no hematuria.. On 05/12/2019 patient was seen and examined on the medical floor he is complaining of rectal bleeding that he relates to hemorrhoids he is complaining of back pain and he is still complaining of cough and shortness of breath and wheezing. Otherwise he denies any complaints there is no fever or chills no headache or dizziness no chest pain nausea or vomiting no abdominal pain no diarrhea no burning was urination no frequency or urgency no hematuria. On 05/13/2019 patient is feeling slightly improved today. Patient still complaining of some shortness of breath and cough. Patient maintained on Mucinex. Patient is alert and oriented 3. Stool for occult blood has been ordered. Patient having cough with positive sputum production. Patient denies chest pain. Patient denies nausea vomiting or diarrhea. Patient denies any urinary burning or frequency 05/14/2019 patient is still having some shortness of breath with sputum production. Patient reports that he is having some blood in stool likely from hemorrhoids. Patient reports he had colonoscopy approximately 3 weeks ago at [facility]. Stool for occult blood have been ordered. Patient remains on antibiotics per ID and pulmonary services following. Patient denies chest pain. Patient denies any nausea or vomiting. Patient denies any urinary burning or frequency On 05/15/2019 patient is sitting up at site of bed reporting that his shortness of breath has not improved. Antibiotics maintained. Mucinex as needed. He is still complaining of loose stools this morning with irritation secondary to hemorrhoids. Will continue Imodium. Hydrocortisone topical added for local treatment per GI. No plans for endoscopic evaluation. Patient denies chest pain. Patient denies any nausea or vomiting patient denies any urinary frequency. On 05/16/2019 Patient is up moving around the room. Reports feeling worse today. Patient shortness of breath has not improved and is complaining of lower back pain. Creatinine 1.23 from 1.20. Antibiotics maintained. Per Dr. Walker, patient will receive Decadron 3 doses. Overnight he had one episode of bleeding with bowel movement. Hemoglobin stable. Continue topical management for hemorrhoids. Patient denies chest pain. Patient denies any nausea vomiting or urinary burning or frequency. On 05/17/2019 patient alert and oriented 3. Patient's lung sounds sound slightly improved compared to yesterday. Patient remains on Decadron. Patient's sodium also at 128. Patient placed on fluid restriction due to this issue. Hemoglobin remained stable. Blood sugars elevated due to Decadron and noncompliance with diabetic diet. Patient denies chest pain. Patient is complaining of lower back pain that is chronic for him. Patient does have morphine pain pump along with [place] for breakthrough pain. On 05/18/2019 patient was seen and examined on the medical floor he is complaining of low water intake however his sodium level is down to 127 he has been off diuretics at this time will restart IV fluid normal saline at 50 mL an hour. Patient also is complaining of diarrhea and blood in the stool, we are still awaiting stool sample for C. diff. He is still complaining of cough shortness of breath and wheezing Otherwise he denies any complaints there is no fever or chills no headache or dizziness no chest pain no nausea or vomiting no abdominal pain no burning was urination no frequency or urgency and no hematuria On 05/19/2019 patient is still complaining of diarrhea he is complaining of blood in his stools. He is still complaining of cough and shortness of breath, otherwise he denies any complaints there is no fever or chills no headache or dizziness no chest pain no nausea or vomiting no abdominal pain, no burning with urination no frequency or urgency and no hematuria On 05/20/2019 patient is alert and oriented 3. Patient is still having some diarrhea with bleeding from hemorrhoids. Hemoglobin improving to 8.2. GI services following. Patient is still short of breath with activity patient remains on Decadron. Sodium improving to 129. Nephrology services following. Patient denies chest pain. Patient denies nausea or vomiting. Patient denies any urinary burning frequency. C. diff sample has been ordered. Discussed with nursing staff On 05/21/2019 patient's alert and oriented 3. Patient reports some improvement with shortness of breath. Per nursing staff C. diff sample was attempted to be sent up her lab unable to test due to stool being formed. Patient will undergo EGD today per GI services sodium improving to 132. Lasix has been resumed per nephrology. Patient denies chest pain. Patient denies nausea or vomiting. Patient denies any urinary burning or frequency Objective - Vital Signs Vital signs: Vital Signs Temp 97.8 F 05/21/19 09:11 Pulse 70 05/21/19 09:11 Resp 18 05/21/19 09:11 BP 128/66 05/21/19 09:11 Pulse Ox 98 05/21/19 09:11 Intake & Output 05/20/19 05/21/19 05/21/19 18:59 06:59 18:59 Intake Total 300 590 Balance 300 590 Intake: Intake, IV Titration 300 Amount Sodium Chloride 0.9% 1, 300 000 ml @ 50 mls/hr IV . Q20H [facility] Rx#:[id number] Oral 590 Other: Voiding Method Toilet Toilet # Voids 2 # Bowel Movements 2 - Exam In general patient is alert and oriented 3 in no apparent distress HEENT head normocephalic and atraumatic Neck is supple no JVD no goiter no lymphadenopathy Chest exam reveals a few scattered crackles no wheezing Cardiac exam reveals regular heart sounds no gallops no murmurs Abdomen is soft nontender no organomegaly with normal bowel sounds Extremity exam reveals 2+ edema with mild erythema and warmth in the pretibial areas Neurological examination reveals no gross focal deficit - Labs CBC & Chem 7: 05/21/19 07:30 05/21/19 07:30 Labs: Abnormal Lab Results - Last 24 Hours (Table) 05/20/19 05/20/19 05/20/19 Range/Units 09:05 09:05 11:09 RBC 3.54 L (4.30-5.90) m/uL Hgb 8.2 L (13.0-17.5) gm/dL Hct 27.4 L (39.0-53.0) % MCV 77.3 L (80.0-100.0) fL MCH 23.2 L (25.0-35.0) pg MCHC 30.0 L (31.0-37.0) g/dL RDW 16.7 H (11.5-15.5) % Plt Count 136 L (150-450) k/uL Neutrophils # 9.6 H (1.3-7.7) k/uL Lymphocytes # 0.2 L (1.0-4.8) k/uL Sodium 129 L (137-145) mmol/L BUN 48 H (9-20) mg/dL Glucose 207 H (74-99) mg/dL POC Glucose (mg/dL) 242 H (75-99) mg/dL Total Bilirubin (0.2-1.3) mg/dL Total Protein 5.6 L (6.3-8.2) g/dL Albumin 3.3 L (3.5-5.0) g/dL 05/20/19 05/20/19 05/21/19 Range/Units 17:10 20:26 07:30 RBC 3.67 L (4.30-5.90) m/uL Hgb 8.7 L (13.0-17.5) gm/dL Hct 28.0 L (39.0-53.0) % MCV 76.2 L (80.0-100.0) fL MCH 23.8 L (25.0-35.0) pg MCHC (31.0-37.0) g/dL RDW 17.3 H (11.5-15.5) % Plt Count 124 L (150-450) k/uL Neutrophils # (1.3-7.7) k/uL Lymphocytes # 0.2 L (1.0-4.8) k/uL Sodium (137-145) mmol/L BUN (9-20) mg/dL Glucose (74-99) mg/dL POC Glucose (mg/dL) 238 H 198 H (75-99) mg/dL Total Bilirubin (0.2-1.3) mg/dL Total Protein (6.3-8.2) g/dL Albumin (3.5-5.0) g/dL 05/21/19 Range/Units 07:30 RBC (4.30-5.90) m/uL Hgb (13.0-17.5) gm/dL Hct (39.0-53.0) % MCV (80.0-100.0) fL MCH (25.0-35.0) pg MCHC (31.0-37.0) g/dL RDW (11.5-15.5) % Plt Count (150-450) k/uL Neutrophils # (1.3-7.7) k/uL Lymphocytes # (1.0-4.8) k/uL Sodium 132 L (137-145) mmol/L BUN 41 H (9-20) mg/dL Glucose (74-99) mg/dL POC Glucose (mg/dL) (75-99) mg/dL Total Bilirubin 1.4 H (0.2-1.3) mg/dL Total Protein 5.6 L (6.3-8.2) g/dL Albumin 3.2 L (3.5-5.0) g/dL Assessment and Plan Assessment: 1. Dyspnea related to acute exacerbation of interstitial lung disease and acute tracheobronchitis. Pulmonary service was consulted. Patient is on prednisone due to ALLERGY to Solu-Medrol. Chest x-ray obtained in ER, impression is moderate pulmonary interstitial fibrosis is unchanged. Per Pulmonary patient maintained on Decadron 2. Acute tracheobronchitis. Levaquin continued. Sputum sample negative. Mucinex added. 3. Bilateral lower extremity cellulitis. Consulted ID services. Clindamycin discontinued per ID. 4. History of interstitial lung disease/pulmonary fibrosis history of chronic hypoxemic respiratory failure. Patient is maintained on home O2 5. Iron deficiency anemia with blood in stool noted per patient. Patient has required IV iron transfusions in the past. Patient is having rectal bleeding at this time, which is mild and he relates it to hemorrhoids. Patient had a colonoscopy 2 weeks ago at the [facility] in [place] will try to obtain records. Per GI services, Hydrocortisone topical therapy for local hemorrhoid. Will start patient on ferrous sulfate given low iron studies. 1 unit of PRBCs given. Per GI services awaiting records of colonoscopy from [facility] possible repeat colonoscopy and EGD. Per GI service is planning EGD today 6. History of chronic diastolic congestive heart failure. Last echo completed December 2016. EF between 50 and 55%. Patient maintained on Lasix and Aldactone. Diuretics currently on hold due to hyponatremia 7. History of CAD. Patient underwent cardiac catheterization in August 2017, conclusion normal coronary artery angiogram, normal left ventricle end-diastolic pressure. 8. History of myasthenia gravis. Maintained on pyridostigmine. Follows with neurology outpatient. 9. History of diabetes mellitus type 2. Last hemoglobin A1c of 7.9 (from 10/26/18). Resume home insulin. Add sliding scale coverage. Educated about the importance of a low carb diet. 10. Hypertension essential. Resume home medications with parameters. 11. History of nonalcoholic liver cirrhosis 12. Chronic pain syndrome with morphine pump. Patient follows with Dr. Jernigan 13. History of obstructive sleep apnea. Unable to tolerate home CPAP, patient wears 2 L O2 as needed at home 14. History of seizure disorder. Maintain on Lamictal. Last seizure 2018 per patient. 15. History of GERD with reflux. Maintained on Pepcid and Protonix 16. History of former smoker 17. thrombocytopenia likely secondary to history of liver cirrhosis. 18. Patient is complaining of uncontrolled pain in his upper back lower back and bilateral lower extremities at this time will add [place], patient should return to his pain specialist as outpatient for adjustment of his pain pump or further management of his chronic pain. 19. Acute kidney injury. Creatinine elevated at 1.37 we'll continue to monitor at this time. Creatinine down trending 1.23 20. Diarrhea. Patient has had loose stools for 2 days. Patient mentions having chronic diarrhea at home and maintains on Imodium. He completed a colonoscopy 2 weeks ago at the [facility] in [place]. Awaiting C. diff collection, patient only had 1 bowel movement overnight with blood present. Continue Imodium as needed. Probiotic ordered per GI. Stool for C. diff has been ordered. Per lab unable to test due to formation of stool 21. Hyponatremia. Sodium 127. We'll hold Aldactone and Lasix today and repeat labs tomorrow. Patient placed on fluid restriction. Patient was started on normal saline at 50. Nephrology services are following. Sodium improving to 129. Fluids currently locked per nephro. Sodium improving to 132 Lasix has been resumed for nephrology DVT prophylaxis SCDs due blood in stool and anemia. GI prophylaxis Pepcid Protonix I performed an examination of the patient and discussed their management with [facility] Nurse Practitioner. I have reviewed the Nurse Practitioner's notes and agree with the documented findings and plan of care
--- NOTE | 2019-05-21 10:35 | PN ---
PROGRESS NOTE DATE OF SERVICE: 05/21/2019 He has been hemodynamically stable. He is less short of breath today and is able to bring up the mucus. He is being scheduled for an EGD this morning. PHYSICAL EXAMINATION: His respiratory rate is 16, pulse rate 74, temperature 97.9, blood pressure 139/53. HEENT is unremarkable. Chest reveals occasional rhonchi. Cardiovascular system reveals an S1, S2. Abdomen is soft. There is trace 1+ pedal edema. White count is 8.4, hemoglobin of 8.7, sodium 132, potassium 4.5, chloride 104, bicarb 24. IMPRESSION: 1. Anemia secondary to gastrointestinal bleed is likely hyponatremia for which he is on fluid restriction. 2. Chronic obstructive pulmonary disease with asthma with exacerbation. 3. Lung fibrosis. 4. Myasthenia gravis. 5. Chronic pain. At this point in time, discontinue his Decadron, continue prednisone. Await results of the EGD. Continue bronchodilators, aerosolized steroids. His prognosis at this time is fair. MMODL / IJN: [id number] /
[2019-05-21] MEDS: FUROSEMIDE 40 MG TAB PO SCH (10:41)
[2019-05-21 11:15] LABS: Glucose,Whole Blood 134 mg/dL (75-99)
[2019-05-21] MEDS ORDERED: PROPOFOL 10 MG/ML 20 ML VIAL IV ONE (15:01)
[2019-05-21] MEDS ORDERED: LIDOCAINE 1% INJ 10MG/ML (20 ML MDV) ONE (15:01)
[2019-05-21] MEDS ORDERED: SODIUM CHLORIDE 0.9% 500 ML 500 ML IV ONE (15:08)
--- NOTE | 2019-05-21 15:21 | P.PCN ---
Date of Procedure: 05/21/19 Procedure(s) Performed: BRIEF HISTORY: Patient is a 73-year-old, pleasant, white male with history of chronic hepatitis B infection and cirrhosis of the liver admitted to the hospital with acute treated proctitis. While in the hospital he was having intermittent colored stools and bright red blood per rectum. He dropped his symptoms to 6.8 requiring 1 unit of blood transfusion. He had a colonoscopy at [facility] in April 2 weeks ago that showed multiple small colon polyps and diverticulosis. Because of the ongoing GI bleed he scheduled for an upper endoscopy to evaluate further. PROCEDURE PERFORMED: Esophagogastroduodenoscopy with biopsy. PREOPERATIVE DIAGNOSIS: GI bleed. IV sedation per anesthesia. PROCEDURE: After informed consent was obtained, the patient was brought into the endoscopy unit. IV sedation was administered by Anesthesia under continuous monitoring. Initially the Olympus GIF-140 video endoscope was inserted into the mouth. Esophagus intubated without any difficulty. It was gradually advanced into the stomach and duodenum and carefully examined. The bulb and the second part of the duodenum appeared normal. The scope at this time was withdrawn to the stomach, adequately insufflated with air, and upon careful examination, mucosa of the antrum, body, had mild diffuse congestion of the mucosa consistent with portal hypertensive gastropathy. Biopsies were done from this area. The mucosa cardia and the fundus appeared normal. There were small gastric fundal varices with no active bleeding noted. The scope was then withdrawn into the esophagus. The GE junction was located at 39 cm from the incisors. There where a large distal esophageal varices seen. There was evidence of whitish plaques noted throughout the entire esophagus consistent with Lisbeth esophagitis and biopsies were done from this area. Patient tolerated the procedure well. IMPRESSION: 1. Small gastric fundal varices with no active bleeding. 2. Large distal esophageal varices 3. Portal hypertensive gastric 4. Lisbeth esophagitis. RECOMMENDATIONS: The findings of this examination were discussed with the patient. At this time will await the biopsy results. He will be continued on Protonix 40 mg daily. Repeat CBC in the morning.
[2019-05-21 16:59] LABS: Glucose,Whole Blood 158 mg/dL (75-99)
[2019-05-21] MEDS: guaiFENesin 600 MG TABLET.ER PO PRN (19:42)
[2019-05-21 20:01] LABS: Glucose,Whole Blood 192 mg/dL (75-99)
[2019-05-21] MEDS: INSULIN DETEMIR (LEVEMIR) 100 UNIT/ML SYR SQ SCH (21:56)
[2019-05-21] MEDS: MONTELUKAST 10 MG TAB PO SCH (21:57)
[2019-05-22] MEDS: PYRIDOSTIGMINE 60 MG TAB PO SCH ×5 (03:54→20:34)
[2019-05-22] MEDS: HYDROcodone/APAP 7.5-325MG 1 EACH TAB PO PRN ×2 (05:22→13:46)
[2019-05-22 07:10] LABS: Glucose,Whole Blood 91 mg/dL (75-99)
[2019-05-22 07:26] LABS: Anisocytosis Slight; Basophils % (A) 0 %; Eosinophils % (A) 0 %; HCT 27.5 % (39.0-53.0); HGB 8.3 gm/dL (13.0-17.5); Hypochromasia Marked; Lymphocytes # (A) 0.4 k/uL (1.0-4.8); Lymphocytes % (A) 6 %; MCH 23.2 pg (25.0-35.0); MCHC 30.2 g/dL (31.0-37.0); MCV 76.7 fL (80.0-100.0); Mean Platelet Volume 7.8; Microcytosis Slight; Monocytes # (A) 0.3 k/uL (0-1.0); Monocytes % (A) 5 %; Neutrophils # (A) 5.7 k/uL (1.3-7.7); Neutrophils % (A) 88 %; Platelet Count 111 k/uL (150-450); RBC 3.59 m/uL (4.30-5.90); RDW 17.6 % (11.5-15.5); WBC 6.5 k/uL (3.8-10.6)
[2019-05-22 08:00] LABS: Calcium 9.4 mg/dL (8.4-10.2); Magnesium 2.2 mg/dL (1.6-2.3); Potassium 4.1 mmol/L (3.5-5.1); Total Bilirubin 1.1 mg/dL (0.2-1.3); Total Protein 5.4 g/dL (6.3-8.2)
[2019-05-22] MEDS: INSULIN ASPART (NovoLOG) 100 UNIT/ML VIAL SQ SCH ×6 (08:09→17:19)
[2019-05-22] MEDS: LACTOBACILLUS ACIDOPH & BULGAR 1 EACH PACKET PO SCH ×2 (08:10→21:32)
[2019-05-22] MEDS: LEVOFLOXACIN 500 MG TAB PO SCH (08:10)
[2019-05-22] MEDS: MULTIVITAMINS, THERA 1 EACH TAB PO SCH (08:10)
[2019-05-22] MEDS: CYANOCOBALAMIN 500 MCG TAB PO SCH (08:10)
[2019-05-22] MEDS: lamoTRIgine 100 MG TAB PO SCH ×2 (08:10→21:32)
[2019-05-22] MEDS: FAMOTIDINE 20 MG TAB PO SCH ×2 (08:11→21:33)
[2019-05-22] MEDS: FINASTERIDE 5 MG TAB PO SCH (08:11)
[2019-05-22] MEDS: ISOSORBIDE MONONITRATE ER 30 MG TAB.ER.24H PO SCH (08:11)
[2019-05-22] MEDS: FUROSEMIDE 40 MG TAB PO SCH (08:11)
[2019-05-22] MEDS: predniSONE 20 MG TAB PO SCH (08:11)
[2019-05-22] MEDS: CHOLECALCIFEROL 1,000 UNIT TAB PO SCH (08:12)
[2019-05-22] MEDS: PANTOPRAZOLE 40 MG TABLET PO SCH (08:12)
[2019-05-22] MEDS: HYDROCORTISONE 1% CREAM 454 GM JAR TOPICAL SCH ×2 (08:12→22:18)
[2019-05-22] MEDS: FERROUS SULFATE 325 MG TAB PO SCH ×2 (08:12→21:32)
[2019-05-22] MEDS: LOSARTAN 50 MG TAB PO SCH (08:12)
[2019-05-22] MEDS: MAGNESIUM OXIDE 400 MG TAB PO SCH (08:12)
[2019-05-22] MEDS: Lamivudine [Lamivudine] 300 MG PO SCH (08:13)
[2019-05-22] MEDS: HYDROCORTISONE 2.5% RECTAL CREAM 30 GM TUBE RECTAL SCH ×2 (08:13→22:18)
[2019-05-22] MEDS: SPIRONOLACTONE 25 MG TAB PO SCH ×2 (08:32→21:32)
--- NOTE | 2019-05-22 08:56 | P.PN ---
Subjective Patient is seen in follow-up for acute kidney injury. Renal function is stable. Creatinine 1.1 to today. Sodium level is stable at 132 today. Oral intake is good. Denies vomiting or diarrhea. He has been voiding. Hemodynamically stable. Requesting to drink more fluids. Vital signs are stable. General: The patient appeared well nourished and normally developed. HEENT: Head exam is unremarkable. Neck is without jugular venous distension. LUNGS: Lungs are clear to auscultation and percussion. Breath sounds decreased. HEART: Rate and Rhythm are regular. First and second heart sounds normal. No murmurs, rubs or gallops. ABDOMEN: Abdominal exam reveals normal bowel sounds. Non-tender and non- distended. No evidence of peritonitis. EXTREMITITES: 1+ edema. Objective - Vital Signs Vital signs: Vital Signs Temp 97.6 F 05/22/19 05:00 Pulse 82 05/22/19 05:00 Resp 20 05/22/19 05:00 BP 163/63 05/22/19 05:00 Pulse Ox 97 05/22/19 05:00 Intake & Output 05/21/19 05/22/19 05/22/19 18:59 06:59 18:59 Intake Total 370 360 Balance 370 360 Weight 118.3 kg Intake: IV 50 Oral 320 360 Other: Voiding Method Toilet Toilet Toilet # Voids 4 4 # Bowel Movements 2 - Labs CBC & Chem 7: 05/22/19 07:06 05/22/19 07:06 Labs: Abnormal Lab Results - Last 24 Hours (Table) 05/21/19 05/21/19 05/21/19 Range/Units 11:14 16:57 19:59 RBC (4.30-5.90) m/uL Hgb (13.0-17.5) gm/dL Hct (39.0-53.0) % MCV (80.0-100.0) fL MCH (25.0-35.0) pg MCHC (31.0-37.0) g/dL RDW (11.5-15.5) % Plt Count (150-450) k/uL Lymphocytes # (1.0-4.8) k/uL Sodium (137-145) mmol/L BUN (9-20) mg/dL Glucose (74-99) mg/dL POC Glucose (mg/dL) 134 H 158 H 192 H (75-99) mg/dL Total Protein (6.3-8.2) g/dL Albumin (3.5-5.0) g/dL 05/22/19 05/22/19 Range/Units 07:06 07:06 RBC 3.59 L (4.30-5.90) m/uL Hgb 8.3 L (13.0-17.5) gm/dL Hct 27.5 L (39.0-53.0) % MCV 76.7 L (80.0-100.0) fL MCH 23.2 L (25.0-35.0) pg MCHC 30.2 L (31.0-37.0) g/dL RDW 17.6 H (11.5-15.5) % Plt Count 111 L (150-450) k/uL Lymphocytes # 0.4 L (1.0-4.8) k/uL Sodium 132 L (137-145) mmol/L BUN 41 H (9-20) mg/dL Glucose 73 L (74-99) mg/dL POC Glucose (mg/dL) (75-99) mg/dL Total Protein 5.4 L (6.3-8.2) g/dL Albumin 3.0 L (3.5-5.0) g/dL Assessment and Plan Plan: Assessment: 1. Acute kidney injury mostly prerenal secondary to intravascular volume de pletion secondary to diuresis and diarrhea. Creatinine 1.1 to today. No proteinuria on UA from March 2019. 2. Hypovolemic hyponatremia. Now appears slightly hypervolemic. Stable. 3. Acute blood loss anemia status post blood transfusion this admission. Patient had recent colonoscopy done at the [facility]. EGD done this admission revealed large distal esophageal varices and small gastric fundal varices. 4. Chronic hepatitis B with liver cirrhosis. GI following. 5. Benign hypertension. Controlled. 6. Insulin-dependent diabetes mellitus. 7. Acute tracheobronchitis maintain on antibiotics. Infectious disease following. 8. Lower extremity edema. Plan: Liberalize fluid intake to 1800 mL per day. Maintain Lasix 40 mg orally once today. Add Aldactone 25 mg twice daily. Encourage oral intake. Avoid nephrotoxins. Hold Cozaar if systolic blood pressure less than 120. Check iron studies.
--- NOTE | 2019-05-22 09:52 | P.PN ---
Subjective Progress Note Date: 05/22/19 This is a 73-year-old male patient of Dr. Osorio who presents with worsening shortness of breath over the last couple days. He does mention that he noticed symptoms weeks ago but the last few days have been especially worse. Patient states that the shortness breath is exacerbated by exertion, he has some relief at rest. Patient has had a productive cough, with thick, yellow sputum. He states that he used [id number] cough suppressant which did give him some relief. Today he is sitting up in chair, in no acute distress. He is wearing 2 L of oxygen and states that he wears this at home as needed. He reports having chills at home and states that he has to wear several blankets at night. He also thinks he might have had a low-grade temp but has been afebrile since admission. He denies any chest pain, palpitations. He denies any nausea, vomiting, diarrhea. He denies any urinary frequency or burning. Past medical history includes: Myasthenia gravis, interstitial lung disease, CVA/TIA, diabetes mellitus, liver cirrhosis, myocardial infarction, hypothyroidism, obstructive sleep apnea, GERD with reflux, hearing disorder/deafness, hypertension hyperlipidemia, seizure disorder. On 05/11/2019 patient was seen and examined on the medical floor he is alert and oriented 3 in no apparent distress he is complaining of pain in his upper back, lower back, and both legs. He has a pain pump implanted however he states that his pain is not well controlled he is also still complaining of cough and shortness of breath especially with activity otherwise he denies any complaints there is no fever or chills no headache or dizziness no chest pain no nausea or vomiting no abdominal pain no diarrhea no burning was urination no frequency or urgency no hematuria.. On 05/12/2019 patient was seen and examined on the medical floor he is complaining of rectal bleeding that he relates to hemorrhoids he is complaining of back pain and he is still complaining of cough and shortness of breath and wheezing. Otherwise he denies any complaints there is no fever or chills no headache or dizziness no chest pain nausea or vomiting no abdominal pain no diarrhea no burning was urination no frequency or urgency no hematuria. On 05/13/2019 patient is feeling slightly improved today. Patient still complaining of some shortness of breath and cough. Patient maintained on Mucinex. Patient is alert and oriented 3. Stool for occult blood has been ordered. Patient having cough with positive sputum production. Patient denies chest pain. Patient denies nausea vomiting or diarrhea. Patient denies any urinary burning or frequency 05/14/2019 patient is still having some shortness of breath with sputum production. Patient reports that he is having some blood in stool likely from hemorrhoids. Patient reports he had colonoscopy approximately 3 weeks ago at [facility]. Stool for occult blood have been ordered. Patient remains on antibiotics per ID and pulmonary services following. Patient denies chest pain. Patient denies any nausea or vomiting. Patient denies any urinary burning or frequency On 05/15/2019 patient is sitting up at site of bed reporting that his shortness of breath has not improved. Antibiotics maintained. Mucinex as needed. He is still complaining of loose stools this morning with irritation secondary to hemorrhoids. Will continue Imodium. Hydrocortisone topical added for local treatment per GI. No plans for endoscopic evaluation. Patient denies chest pain. Patient denies any nausea or vomiting patient denies any urinary frequency. On 05/16/2019 Patient is up moving around the room. Reports feeling worse today. Patient shortness of breath has not improved and is complaining of lower back pain. Creatinine 1.23 from 1.20. Antibiotics maintained. Per Dr. Walker, patient will receive Decadron 3 doses. Overnight he had one episode of bleeding with bowel movement. Hemoglobin stable. Continue topical management for hemorrhoids. Patient denies chest pain. Patient denies any nausea vomiting or urinary burning or frequency. On 05/17/2019 patient alert and oriented 3. Patient's lung sounds sound slightly improved compared to yesterday. Patient remains on Decadron. Patient's sodium also at 128. Patient placed on fluid restriction due to this issue. Hemoglobin remained stable. Blood sugars elevated due to Decadron and noncompliance with diabetic diet. Patient denies chest pain. Patient is complaining of lower back pain that is chronic for him. Patient does have morphine pain pump along with Riley for breakthrough pain. On 05/18/2019 patient was seen and examined on the medical floor he is complaining of low water intake however his sodium level is down to 127 he has been off diuretics at this time will restart IV fluid normal saline at 50 mL an hour. Patient also is complaining of diarrhea and blood in the stool, we are still awaiting stool sample for C. diff. He is still complaining of cough shortness of breath and wheezing Otherwise he denies any complaints there is no fever or chills no headache or dizziness no chest pain no nausea or vomiting no abdominal pain no burning was urination no frequency or urgency and no hematuria On 05/19/2019 patient is still complaining of diarrhea he is complaining of blood in his stools. He is still complaining of cough and shortness of breath, otherwise he denies any complaints there is no fever or chills no headache or dizziness no chest pain no nausea or vomiting no abdominal pain, no burning with urination no frequency or urgency and no hematuria On 05/20/2019 patient is alert and oriented 3. Patient is still having some diarrhea with bleeding from hemorrhoids. Hemoglobin improving to 8.2. GI services following. Patient is still short of breath with activity patient remains on Decadron. Sodium improving to 129. Nephrology services following. Patient denies chest pain. Patient denies nausea or vomiting. Patient denies any urinary burning frequency. C. diff sample has been ordered. Discussed with nursing staff On 05/21/2019 patient's alert and oriented 3. Patient reports some improvement with shortness of breath. Per nursing staff C. diff sample was attempted to be sent up her lab unable to test due to stool being formed. Patient will undergo EGD today per GI services sodium improving to 132. Lasix has been resumed per nephrology. Patient denies chest pain. Patient denies nausea or vomiting. Patient denies any urinary burning or frequency On 05/22/2019 patient's alert and oriented 3. Patient underwent EGD. Hemo globin 8.3. Sodium remained stable at 132. Decadron has been DC'd per pulmonary. Patient remains on prednisone and Levaquin. Patient denies chest pain. Patient denies nausea vomiting or diarrhea. Patient denies any urinary burning or frequency. Objective - Vital Signs Vital signs: Vital Signs Temp 97.6 F 05/22/19 05:00 Pulse 82 05/22/19 05:00 Resp 20 05/22/19 05:00 BP 163/63 05/22/19 05:00 Pulse Ox 97 05/22/19 05:00 Intake & Output 05/21/19 05/22/19 05/22/19 18:59 06:59 18:59 Intake Total 370 360 Balance 370 360 Weight 118.3 kg Intake: IV 50 Oral 320 360 Other: Voiding Method Toilet Toilet Toilet # Voids 4 4 # Bowel Movements 2 - Exam In general patient is alert and oriented 3 in no apparent distress HEENT head normocephalic and atraumatic Neck is supple no JVD no goiter no lymphadenopathy Chest exam reveals a few scattered crackles no wheezing Cardiac exam reveals regular heart sounds no gallops no murmurs Abdomen is soft nontender no organomegaly with normal bowel sounds Extremity exam reveals 2+ edema with mild erythema and warmth in the pretibial areas Neurological examination reveals no gross focal deficit - Labs CBC & Chem 7: 05/22/19 07:06 05/22/19 07:06 Labs: Abnormal Lab Results - Last 24 Hours (Table) 05/21/19 05/21/19 05/21/19 Range/Units 11:14 16:57 19:59 RBC (4.30-5.90) m/uL Hgb (13.0-17.5) gm/dL Hct (39.0-53.0) % MCV (80.0-100.0) fL MCH (25.0-35.0) pg MCHC (31.0-37.0) g/dL RDW (11.5-15.5) % Plt Count (150-450) k/uL Lymphocytes # (1.0-4.8) k/uL Sodium (137-145) mmol/L BUN (9-20) mg/dL Glucose (74-99) mg/dL POC Glucose (mg/dL) 134 H 158 H 192 H (75-99) mg/dL Total Protein (6.3-8.2) g/dL Albumin (3.5-5.0) g/dL 05/22/19 05/22/19 Range/Units 07:06 07:06 RBC 3.59 L (4.30-5.90) m/uL Hgb 8.3 L (13.0-17.5) gm/dL Hct 27.5 L (39.0-53.0) % MCV 76.7 L (80.0-100.0) fL MCH 23.2 L (25.0-35.0) pg MCHC 30.2 L (31.0-37.0) g/dL RDW 17.6 H (11.5-15.5) % Plt Count 111 L (150-450) k/uL Lymphocytes # 0.4 L (1.0-4.8) k/uL Sodium 132 L (137-145) mmol/L BUN 41 H (9-20) mg/dL Glucose 73 L (74-99) mg/dL POC Glucose (mg/dL) (75-99) mg/dL Total Protein 5.4 L (6.3-8.2) g/dL Albumin 3.0 L (3.5-5.0) g/dL Assessment and Plan Assessment: 1. Dyspnea related to acute exacerbation of interstitial lung disease and acute tracheobronchitis. Pulmonary service was consulted. Patient is on prednisone due to ALLERGY to Solu-Medrol. Chest x-ray obtained in ER, impression is moderate pulmonary interstitial fibrosis is unchanged. Per Pulmonary patient maintained on Decadron. Decadron has been DC'd per pulmonary patient maintained on prednisone 2. Acute tracheobronchitis. Levaquin continued. Sputum sample negative. Mucinex added. 3. Bilateral lower extremity cellulitis. Consulted ID services. Clindamycin discontinued per ID. 4. History of interstitial lung disease/pulmonary fibrosis history of chronic hypoxemic respiratory failure. Patient is maintained on home O2 5. Iron deficiency anemia with blood in stool noted per patient. Patient has required IV iron transfusions in the past. Patient is having rectal bleeding at this time, which is mild and he relates it to hemorrhoids. Patient had a colonoscopy 2 weeks ago at the [facility] [place] will try to obtain records. Per GI services, Hydrocortisone topical therapy for local hemorrhoid. Will start patient on ferrous sulfate given low iron studies. 1 unit of PRBCs given. Per GI services awaiting records of colonoscopy from [facility] possible repeat colonoscopy and EGD. Status post EGD showing small gastric fundal varices with no active bleeding large distal esophageal varices and portal hypertensive gastric Lisbeth esophagitis. Per GI services continue [id number] mg daily 6. History of chronic diastolic congestive heart failure. Last echo completed December 2016. EF between 50 and 55%. 7. History of CAD. Patient underwent cardiac catheterization in August 2017, conclusion normal coronary artery angiogram, normal left ventricle end-diastolic pressure. 8. History of myasthenia gravis. Maintained on pyridostigmine. Follows with neurology outpatient. 9. History of diabetes mellitus type 2. Last hemoglobin A1c of 7.9 (from 10/26/18). Resume home insulin. Add sliding scale coverage. Educated about the importance of a low carb diet. 10. Hypertension essential. Resume home medications with parameters. 11. History of nonalcoholic liver cirrhosis 12. Chronic pain syndrome with morphine pump. Patient follows with Dr. Jernigan 13. History of obstructive sleep apnea. Unable to tolerate home CPAP, patient wears 2 L O2 as needed at home 14. History of seizure disorder. Maintain on Lamictal. Last seizure 2018 per patient. 15. History of GERD with reflux. Maintained on Pepcid and Protonix 16. History of former smoker 17. thrombocytopenia likely secondary to history of liver cirrhosis. 18. Patient is complaining of uncontrolled pain in his upper back lower back and bilateral lower extremities at this time will add Riley, patient should re turn to his pain specialist as outpatient for adjustment of his pain pump or further management of his chronic pain. 19. Acute kidney injury. Creatinine elevated at 1.37 we'll continue to monitor at this time. Creatinine down trending 1.23 20. Diarrhea. Patient has had loose stools for 2 days. Patient mentions having chronic diarrhea at home and maintains on Imodium. He completed a colono scopy 2 weeks ago at the [facility] in [place]. Awaiting C. diff collection, patient only had 1 bowel movement overnight with blood present. Continue Imodium as needed. Probiotic ordered per GI. Stool for C. diff has been ordered. Per lab unable to test due to formation of stool 21. Hyponatremia. Sodium 127. We'll hold Aldactone and Lasix today and repeat labs tomorrow. Patient placed on fluid restriction. Nephrology services are following. Sodium improving to 129. Fluids currently locked per nephro. Sodium improving to 132 Lasix has been resumed for nephrology. Per nephrology fluid restriction increased to 1800 mls per day patient maintained on Lasix. Aldactone resumed DVT prophylaxis SCDs due blood in stool and anemia. GI prophylaxis Pepcid Protonix I performed an examination of the patient and discussed their management with the Nurse Practitioner. I have reviewed the Nurse Practitioner's notes and agree with the documented findings and plan of care
[2019-05-22 10:53] LABS: Glucose,Whole Blood 211 mg/dL (75-99)
[2019-05-22] MEDS: FLUCONAZOLE 100 MG TAB PO SCH (12:28)
[2019-05-22 16:02] LABS: % Iron Saturation 3.99 (15.00-50.00); Ferritin 41.8 ng/mL (22.0-322.0)
[2019-05-22 17:10] LABS: Glucose,Whole Blood 209 mg/dL (75-99)
--- NOTE | 2019-05-22 20:12 | PN ---
PROGRESS NOTE DATE OF DICTATION: 05/22/2019 This patient is a 73-year-old pleasant white male admitted to the hospital with acute tracheobronchitis, presently on antibiotics and doing better. While in the hospital he developed acute GI bleed and hence we are following the patient closely. He had a colonoscopy three weeks ago at [facility] that showed small polyps and diverticulosis. He had an upper endoscopy done by me yesterday that showed severe Lisbeth esophagitis, large esophageal varices with no active bleeding, and small gastric fundal varices as well as gastritis. The patient was started on fluconazole 100 mg daily. He complains of difficulty swallowing. He still has about two to three loose bowel movements daily. No further episodes of bleeding. He denies any abdominal pain. No nausea or vomiting. PHYSICAL EXAMINATION: On physical examination, he appears comfortable. No apparent distress. VITAL SIGNS: Stable. Blood pressure is 132/60, pulse rate 97, temperature 98. HEENT examination unremarkable. Conjunctivae pink. Sclerae anicteric. Oral cavity no lesions. NECK: No JVD or lymph node enlargement. CHEST: Clear to auscultation. HEART: Regular rate and rhythm. ABDOMEN: Soft. Bowel sounds are positive. No organomegaly. EXTREMITIES: Trace pedal edema. Multiple bruises on the upper extremities. NEUROLOGIC: Alert and oriented x3. No focal deficits. LABS: Labs done today show WBC 6.5, hemoglobin 8.3. Platelets are 111. BUN 41, creatinine 1.12. IMPRESSION: 1. Acute gastrointestinal bleed. Upper endoscopy done yesterday showed evidence of severe Lisbeth esophagitis, nonbleeding large esophageal varices and small gastric fundal varices as well as portal hypertensive gastropathy. 2. Chronic hepatitis B infection/cirrhosis of the liver, presently on oral lamivudine daily. 3. Diabetes mellitus/hypertension. 4. Chronic pain syndrome. Follows with Dr. Buckley. RECOMMENDATIONS: 1. Continue with fluconazole 100 mg daily. 2. Monitor CBC on a daily basis. 3. Repeat CBC in the morning. 4. Will follow with you closely during her hospital stay. Thank you for this consultation. MMODL / IJN: [id number] /
[2019-05-22 20:15] LABS: Glucose,Whole Blood 284 mg/dL (75-99)
[2019-05-22] MEDS: INSULIN DETEMIR (LEVEMIR) 100 UNIT/ML SYR SQ SCH (21:31)
[2019-05-22] MEDS: MONTELUKAST 10 MG TAB PO SCH (21:32)
[2019-05-22] MEDS: DEXAMETHASONE SOD PHOSPHATE 4 MG/ML 1 ML VIAL IV SCH (22:17)
--- NOTE | 2019-05-22 22:18 | PN ---
PROGRESS NOTE DATE OF SERVICE: 05/22/2019 This patient is more short of breath and is having some diarrhea. He has diffuse pain. On physical examination, respiratory rate is 24, pulse rate of 87, temperature 97.5, blood pressure 116/60. Oxygen saturation on room air is 97%. HEENT reveals pupils that are equal. Chest reveals expiratory wheeze. Cardiovascular system is in S1, S2. Abdomen is soft. There is 1+ pedal edema. Labs reveal white count of 6.5, hemoglobin of 8.3. BUN 41, creatinine of 1.12. Sodium 132, potassium 4.1, chloride 104, bicarb 26. IMPRESSION AT THIS TIME: 1. Chronic obstructive pulmonary disease with asthma with acute exacerbation. 2. Lung fibrosis. 3. Myasthenia gravis. 4. Anemia secondary to gastrointestinal bleed. 5. Hyponatremia, etiology of which is unclear. At this point in time, would start him back on Decadron. Continue him on his prednisone dose that he was on for his myasthenia gravis. Keep him on bronchodilators. Increase his activity level. His prognosis at this time is fair. MMODL / IJN: [id number] /
[2019-05-23] MEDS: HYDROcodone/APAP 7.5-325MG 1 EACH TAB PO PRN ×2 (00:11→15:13)
[2019-05-23] MEDS: PYRIDOSTIGMINE 60 MG TAB PO SCH ×6 (00:11→20:47)
[2019-05-23] MEDS: DEXAMETHASONE SOD PHOSPHATE 4 MG/ML 1 ML VIAL IV SCH ×4 (04:03→20:48)
[2019-05-23 07:04] LABS: Glucose,Whole Blood 238 mg/dL (75-99)
[2019-05-23] MEDS: INSULIN ASPART (NovoLOG) 100 UNIT/ML VIAL SQ SCH ×7 (07:52→22:19)
[2019-05-23 08:22] LABS: Anisocytosis Slight; Basophils % (A) 0 %; Eosinophils % (A) 0 %; HCT 29.4 % (39.0-53.0); HGB 8.7 gm/dL (13.0-17.5); Hypochromasia Marked; Lymphocytes # (A) 0.3 k/uL (1.0-4.8); Lymphocytes % (A) 4 %; MCH 23.1 pg (25.0-35.0); MCHC 29.6 g/dL (31.0-37.0); Mean Platelet Volume 5.6; Microcytosis Slight; Monocytes # (A) 0.2 k/uL (0-1.0); Monocytes % (A) 3 %; Neutrophils # (A) 6.9 k/uL (1.3-7.7); Neutrophils % (A) 93 %; Platelet Count 111 k/uL (150-450); RBC 3.77 m/uL (4.30-5.90); RDW 17.1 % (11.5-15.5); WBC 7.4 k/uL (3.8-10.6)
[2019-05-23 08:38] LABS: Albumin 3.4 g/dL (3.5-5.0); Calcium 9.1 mg/dL (8.4-10.2); Magnesium 2.2 mg/dL (1.6-2.3); Potassium 4.9 mmol/L (3.5-5.1); Total Bilirubin 1.3 mg/dL (0.2-1.3); Total Protein 5.8 g/dL (6.3-8.2)
[2019-05-23] MEDS: CHOLECALCIFEROL 1,000 UNIT TAB PO SCH (09:42)
[2019-05-23] MEDS: FERROUS SULFATE 325 MG TAB PO SCH ×2 (09:43→20:48)
[2019-05-23] MEDS: FLUCONAZOLE 100 MG TAB PO SCH (09:44)
[2019-05-23] MEDS: FINASTERIDE 5 MG TAB PO SCH (09:44)
[2019-05-23] MEDS: FUROSEMIDE 40 MG TAB PO SCH (09:44)
[2019-05-23] MEDS: PANTOPRAZOLE 40 MG TABLET PO SCH (09:45)
[2019-05-23] MEDS: SPIRONOLACTONE 25 MG TAB PO SCH ×2 (09:45→20:47)
[2019-05-23] MEDS: predniSONE 20 MG TAB PO SCH (09:45)
[2019-05-23] MEDS: ISOSORBIDE MONONITRATE ER 30 MG TAB.ER.24H PO SCH (09:47)
[2019-05-23] MEDS: LOSARTAN 50 MG TAB PO SCH (09:47)
[2019-05-23] MEDS: lamoTRIgine 100 MG TAB PO SCH ×2 (09:47→20:48)
[2019-05-23] MEDS: MAGNESIUM OXIDE 400 MG TAB PO SCH (09:48)
[2019-05-23] MEDS: MULTIVITAMINS, THERA 1 EACH TAB PO SCH (09:48)
[2019-05-23] MEDS: LACTOBACILLUS ACIDOPH & BULGAR 1 EACH PACKET PO SCH ×2 (09:48→20:48)
[2019-05-23] MEDS: Lamivudine [Lamivudine] 300 MG PO SCH (09:51)
--- NOTE | 2019-05-23 09:51 | P.PN ---
Subjective Progress Note Date: 05/23/19 This is a 73-year-old male patient of Dr. Osorio who presents with worsening shortness of breath over the last couple days. He does mention that he noticed symptoms weeks ago but the last few days have been especially worse. Patient states that the shortness breath is exacerbated by exertion, he has some relief at rest. Patient has had a productive cough, with thick, yellow sputum. He states that he used [id number] cough suppressant which did give him some relief. Today he is sitting up in chair, in no acute distress. He is wearing 2 L of oxygen and states that he wears this at home as needed. He reports having chills at home and states that he has to wear several blankets at night. He also thinks he might have had a low-grade temp but has been afebrile since admission. He denies any chest pain, palpitations. He denies any nausea, vomiting, diarrhea. He denies any urinary frequency or burning. Past medical history includes: Myasthenia gravis, interstitial lung disease, CVA/TIA, diabetes mellitus, liver cirrhosis, myocardial infarction, hypothyroidism, obstructive sleep apnea, GERD with reflux, hearing disorder/deafness, hypertension hyperlipidemia, seizure disorder. On 05/11/2019 patient was seen and examined on the medical floor he is alert and oriented 3 in no apparent distress he is complaining of pain in his upper back, lower back, and both legs. He has a pain pump implanted however he states that his pain is not well controlled he is also still complaining of cough and shortness of breath especially with activity otherwise he denies any complaints there is no fever or chills no headache or dizziness no chest pain no nausea or vomiting no abdominal pain no diarrhea no burning was urination no frequency or urgency no hematuria.. On 05/12/2019 patient was seen and examined on the medical floor he is complaining of rectal bleeding that he relates to hemorrhoids he is complaining of back pain and he is still complaining of cough and shortness of breath and wheezing. Otherwise he denies any complaints there is no fever or chills no headache or dizziness no chest pain nausea or vomiting no abdominal pain no diarrhea no burning was urination no frequency or urgency no hematuria. On 05/13/2019 patient is feeling slightly improved today. Patient still complaining of some shortness of breath and cough. Patient maintained on Mucinex. Patient is alert and oriented 3. Stool for occult blood has been ordered. Patient having cough with positive sputum production. Patient denies chest pain. Patient denies nausea vomiting or diarrhea. Patient denies any urinary burning or frequency 05/14/2019 patient is still having some shortness of breath with sputum production. Patient reports that he is having some blood in stool likely from hemorrhoids. Patient reports he had colonoscopy approximately 3 weeks ago at [facility]. Stool for occult blood have been ordered. Patient remains on antibiotics per ID and pulmonary services following. Patient denies chest pain. Patient denies any nausea or vomiting. Patient denies any urinary burning or frequency On 05/15/2019 patient is sitting up at site of bed reporting that his shortness of breath has not improved. Antibiotics maintained. Mucinex as needed. He is still complaining of loose stools this morning with irritation secondary to hemorrhoids. Will continue Imodium. Hydrocortisone topical added for local treatment per GI. No plans for endoscopic evaluation. Patient denies chest pain. Patient denies any nausea or vomiting patient denies any urinary frequency. On 05/16/2019 Patient is up moving around the room. Reports feeling worse today. Patient shortness of breath has not improved and is complaining of lower back pain. Creatinine 1.23 from 1.20. Antibiotics maintained. Per Dr. Walker, patient will receive Decadron 3 doses. Overnight he had one episode of bleeding with bowel movement. Hemoglobin stable. Continue topical management for hemorrhoids. Patient denies chest pain. Patient denies any nausea vomiting or urinary burning or frequency. On 05/17/2019 patient alert and oriented 3. Patient's lung sounds sound slightly improved compared to yesterday. Patient remains on Decadron. Patient's sodium also at 128. Patient placed on fluid restriction due to this issue. Hemoglobin remained stable. Blood sugars elevated due to Decadron and noncompliance with diabetic diet. Patient denies chest pain. Patient is complaining of lower back pain that is chronic for him. Patient does have morphine pain pump along with Trenton for breakthrough pain. On 05/18/2019 patient was seen and examined on the medical floor he is complaining of low water intake however his sodium level is down to 127 he has been off diuretics at this time will restart IV fluid normal saline at 50 mL an hour. Patient also is complaining of diarrhea and blood in the stool, we are still awaiting stool sample for C. diff. He is still complaining of cough shortness of breath and wheezing Otherwise he denies any complaints there is no fever or chills no headache or dizziness no chest pain no nausea or vomiting no abdominal pain no burning was urination no frequency or urgency and no hematuria On 05/19/2019 patient is still complaining of diarrhea he is complaining of blood in his stools. He is still complaining of cough and shortness of breath, otherwise he denies any complaints there is no fever or chills no headache or dizziness no chest pain no nausea or vomiting no abdominal pain, no burning with urination no frequency or urgency and no hematuria On 05/20/2019 patient is alert and oriented 3. Patient is still having some diarrhea with bleeding from hemorrhoids. Hemoglobin improving to 8.2. GI services following. Patient is still short of breath with activity patient remains on Decadron. Sodium improving to 129. Nephrology services following. Patient denies chest pain. Patient denies nausea or vomiting. Patient denies any urinary burning frequency. C. diff sample has been ordered. Discussed with nursing staff On 05/21/2019 patient's alert and oriented 3. Patient reports some improvement with shortness of breath. Per nursing staff C. diff sample was attempted to be sent up her lab unable to test due to stool being formed. Patient will undergo EGD today per GI services sodium improving to 132. Lasix has been resumed per nephrology. Patient denies chest pain. Patient denies nausea or vomiting. Patient denies any urinary burning or frequency On 05/22/2019 patient's alert and oriented 3. Patient underwent EGD. Hemo globin 8.3. Sodium remained stable at 132. Decadron has been DC'd per pulmonary. Patient remains on prednisone and Levaquin. Patient denies chest pain. Patient denies nausea vomiting or diarrhea. Patient denies any urinary burning or frequency. On 05/23/2019 patient's alert and oriented 3. Patient reports some improvement. Hemoglobin 8.7. Patient currently on Diflucan for Lisbeth esopha gitis. Patient has been started back on Decadron per pulmonary. Lasix increased per nephrology. Patient denies chest pain. Patient denies nausea vomiting or diarrhea. Patient denies any urinary burning and frequency Objective - Vital Signs Vital signs: Vital Signs Temp 98.5 F 05/23/19 07:48 Pulse 92 05/23/19 07:48 Resp 18 05/23/19 07:48 BP 127/65 05/23/19 07:48 Pulse Ox 98 05/23/19 07:48 Intake & Output 05/22/19 05/23/19 05/23/19 18:59 06:59 18:59 Intake Total 357 834 Output Total 575 Balance 357 259 Weight 118.3 kg 118.87 kg Intake: Oral 357 834 Output: Urine 575 Other: Voiding Method Toilet Toilet # Voids 3 2 # Bowel Movements 1 - Exam In general patient is alert and oriented 3 in no apparent distress HEENT head normocephalic and atraumatic Neck is supple no JVD no goiter no lymphadenopathy Chest exam reveals a few scattered crackles no wheezing Cardiac exam reveals regular heart sounds no gallops no murmurs Abdomen is soft nontender no organomegaly with normal bowel sounds Extremity exam reveals 2+ edema with mild erythema and warmth in the pretibial areas Neurological examination reveals no gross focal deficit - Labs CBC & Chem 7: 05/23/19 07:50 05/23/19 07:50 Labs: Abnormal Lab Results - Last 24 Hours (Table) 05/22/19 05/22/19 05/22/19 Range/Units 07:06 10:50 17:09 RBC (4.30-5.90) m/uL Hgb (13.0-17.5) gm/dL Hct (39.0-53.0) % MCV (80.0-100.0) fL MCH (25.0-35.0) pg MCHC (31.0-37.0) g/dL RDW (11.5-15.5) % Plt Count (150-450) k/uL Lymphocytes # (1.0-4.8) k/uL Sodium (137-145) mmol/L BUN (9-20) mg/dL Glucose (74-99) mg/dL POC Glucose (mg/dL) 211 H 209 H (75-99) mg/dL Iron 14 L (65-175) ug/dL % Saturation 3.99 L (15.00-50.00) Total Protein (6.3-8.2) g/dL Albumin (3.5-5.0) g/dL 05/22/19 05/23/19 05/23/19 Range/Units 20:12 06:54 07:50 RBC 3.77 L (4.30-5.90) m/uL Hgb 8.7 L (13.0-17.5) gm/dL Hct 29.4 L (39.0-53.0) % MCV 78.0 L (80.0-100.0) fL MCH 23.1 L (25.0-35.0) pg MCHC 29.6 L (31.0-37.0) g/dL RDW 17.1 H (11.5-15.5) % Plt Count 111 L (150-450) k/uL Lymphocytes # 0.3 L (1.0-4.8) k/uL Sodium (137-145) mmol/L BUN (9-20) mg/dL Glucose (74-99) mg/dL POC Glucose (mg/dL) 284 H 238 H (75-99) mg/dL Iron (65-175) ug/dL % Saturation (15.00-50.00) Total Protein (6.3-8.2) g/dL Albumin (3.5-5.0) g/dL 05/23/19 Range/Units 07:50 RBC (4.30-5.90) m/uL Hgb (13.0-17.5) gm/dL Hct (39.0-53.0) % MCV (80.0-100.0) fL MCH (25.0-35.0) pg MCHC (31.0-37.0) g/dL RDW (11.5-15.5) % Plt Count (150-450) k/uL Lymphocytes # (1.0-4.8) k/uL Sodium 130 L (137-145) mmol/L BUN 35 H (9-20) mg/dL Glucose 184 H (74-99) mg/dL POC Glucose (mg/dL) (75-99) mg/dL Iron (65-175) ug/dL % Saturation (15.00-50.00) Total Protein 5.8 L (6.3-8.2) g/dL Albumin 3.4 L (3.5-5.0) g/dL Assessment and Plan Assessment: 1. Dyspnea related to acute exacerbation of interstitial lung disease and acute tracheobronchitis. Pulmonary service was consulted. Patient is on prednisone due to ALLERGY to Solu-Medrol. Chest x-ray obtained in ER, impression is moderate pulmonary interstitial fibrosis is unchanged. Per Pulmonary patient maintained on Decadron. Decadron has been DC'd per pulmonary patient maintained on prednisone 2. Acute tracheobronchitis. Levaquin continued. Sputum sample negative. Mucinex added. 3. Bilateral lower extremity cellulitis. Consulted ID services. Clindamycin discontinued per ID. 4. History of interstitial lung disease/pulmonary fibrosis history of chronic hypoxemic respiratory failure. Patient is maintained on home O2 5. Iron deficiency anemia with blood in stool noted per patient. Patient has r equired IV iron transfusions in the past. Patient is having rectal bleeding at this time, which is mild and he relates it to hemorrhoids. Patient had a colonoscopy 2 weeks ago at the [facility] in [place] will try to obtain records. Per GI services, Hydrocortisone topical therapy for local hemorrhoid. Will start patient on ferrous sulfate given low iron studies. 1 unit of PRBCs given. Per GI services awaiting records of colonoscopy from [facility] possible repeat colonoscopy and EGD. Status post EGD showing small gastric fundal varices with no active bleeding large distal esophageal varices and portal hypertensive gastric Lisbeth esophagitis. Per GI services continue [id number] mg daily 6. History of chronic diastolic congestive heart failure. Last echo completed December 2016. EF between 50 and 55%. 7. History of CAD. Patient underwent cardiac catheterization in August 2017, conclusion normal coronary artery angiogram, normal left ventricle end-diastolic pressure. 8. History of myasthenia gravis. Maintained on pyridostigmine. Follows with neurology outpatient. 9. History of diabetes mellitus type 2. Last hemoglobin A1c of 7.9 (from 10/26/18). Resume home insulin. Add sliding scale coverage. Educated about the importance of a low carb diet. 10. Hypertension essential. Resume home medications with parameters. 11. History of nonalcoholic liver cirrhosis 12. Chronic pain syndrome with morphine pump. Patient follows with Dr. Jernigan 13. History of obstructive sleep apnea. Unable to tolerate home CPAP, patient wears 2 L O2 as needed at home 14. History of seizure disorder. Maintain on Lamictal. Last seizure 2018 per patient. 15. History of GERD with reflux. Maintained on Pepcid and Protonix 16. History of former smoker 17. thrombocytopenia likely secondary to history of liver cirrhosis. 18. Patient is complaining of uncontrolled pain in his upper back lower back and bilateral lower extremities at this time will add [place], patient should return to his pain specialist as outpatient for adjustment of his pain pump or further management of his chronic pain. 19. Acute kidney injury. Creatinine elevated at 1.37 we'll continue to monitor at this time. Creatinine down trending 1.23 20. Diarrhea. Patient has had loose stools for 2 days. Patient mentions having chronic diarrhea at home and maintains on Imodium. He completed a colo noscopy 2 weeks ago at the [facility] in [place]. Awaiting C. diff collection, patient only had 1 bowel movement overnight with blood present. Continue Imodium as needed. Probiotic ordered per GI. Stool for C. diff has been ordered. Per lab unable to test due to formation of stool 21. Hyponatremia. Sodium 127. We'll hold Aldactone and Lasix today and repeat labs tomorrow. Patient placed on fluid restriction. Nephrology services are following. Sodium improving to 129. Fluids currently locked per nephro. Sodium improving to 132 Lasix has been resumed for nephrology. Per nephrology fluid restriction increased to 1800 mls per day patient maintained on Lasix. Aldactone resumed 22. Lisbeth esophagitis. Patient started on Diflucan per GI services DVT prophylaxis SCDs due blood in stool and anemia. GI prophylaxis Pepcid Protonix I performed an examination of the patient and discussed their management with the Nurse Practitioner. I have reviewed the Nurse Practitioner's notes and agree with the documented findings and plan of care
[2019-05-23] MEDS: CYANOCOBALAMIN 500 MCG TAB PO SCH (09:54)
[2019-05-23] MEDS: FAMOTIDINE 20 MG TAB PO SCH ×2 (09:54→20:47)
--- NOTE | 2019-05-23 10:07 | P.PN ---
Subjective Patient is seen in follow-up for acute kidney injury. Renal function is stable. Creatinine 1.0 today. Sodium level is 130 today. Oral intake is good. Denies vomiting or diarrhea. He has been voiding. Hemodynamically stable. Requesting to drink more fluids. Vital signs are stable. General: The patient appeared well nourished and normally developed. HEENT: Head exam is unremarkable. Neck is without jugular venous distension. LUNGS: Lungs are clear to auscultation and percussion. Breath sounds decreased. HEART: Rate and Rhythm are regular. First and second heart sounds normal. No murmurs, rubs or gallops. ABDOMEN: Abdominal exam reveals normal bowel sounds. Non-tender and non- distended. No evidence of peritonitis. EXTREMITITES: 1+ edema. Objective - Vital Signs Vital signs: Vital Signs Temp 98.5 F 05/23/19 07:48 Pulse 92 05/23/19 07:48 Resp 18 05/23/19 07:48 BP 127/65 05/23/19 07:48 Pulse Ox 98 05/23/19 07:48 Intake & Output 05/22/19 05/23/19 05/23/19 18:59 06:59 18:59 Intake Total 357 834 Output Total 575 Balance 357 259 Weight 118.3 kg 118.87 kg Intake: Oral 357 834 Output: Urine 575 Other: Voiding Method Toilet Toilet # Voids 3 2 # Bowel Movements 1 - Labs CBC & Chem 7: 05/23/19 07:50 05/23/19 07:50 Labs: Abnormal Lab Results - Last 24 Hours (Table) 05/22/19 05/22/19 05/22/19 Range/Units 07:06 10:50 17:09 RBC (4.30-5.90) m/uL Hgb (13.0-17.5) gm/dL Hct (39.0-53.0) % MCV (80.0-100.0) fL MCH (25.0-35.0) pg MCHC (31.0-37.0) g/dL RDW (11.5-15.5) % Plt Count (150-450) k/uL Lymphocytes # (1.0-4.8) k/uL Sodium (137-145) mmol/L BUN (9-20) mg/dL Glucose (74-99) mg/dL POC Glucose (mg/dL) 211 H 209 H (75-99) mg/dL Iron 14 L (65-175) ug/dL % Saturation 3.99 L (15.00-50.00) Total Protein (6.3-8.2) g/dL Albumin (3.5-5.0) g/dL 05/22/19 05/23/19 05/23/19 Range/Units 20:12 06:54 07:50 RBC 3.77 L (4.30-5.90) m/uL Hgb 8.7 L (13.0-17.5) gm/dL Hct 29.4 L (39.0-53.0) % MCV 78.0 L (80.0-100.0) fL MCH 23.1 L (25.0-35.0) pg MCHC 29.6 L (31.0-37.0) g/dL RDW 17.1 H (11.5-15.5) % Plt Count 111 L (150-450) k/uL Lymphocytes # 0.3 L (1.0-4.8) k/uL Sodium (137-145) mmol/L BUN (9-20) mg/dL Glucose (74-99) mg/dL POC Glucose (mg/dL) 284 H 238 H (75-99) mg/dL Iron (65-175) ug/dL % Saturation (15.00-50.00) Total Protein (6.3-8.2) g/dL Albumin (3.5-5.0) g/dL 05/23/19 Range/Units 07:50 RBC (4.30-5.90) m/uL Hgb (13.0-17.5) gm/dL Hct (39.0-53.0) % MCV (80.0-100.0) fL MCH (25.0-35.0) pg MCHC (31.0-37.0) g/dL RDW (11.5-15.5) % Plt Count (150-450) k/uL Lymphocytes # (1.0-4.8) k/uL Sodium 130 L (137-145) mmol/L BUN 35 H (9-20) mg/dL Glucose 184 H (74-99) mg/dL POC Glucose (mg/dL) (75-99) mg/dL Iron (65-175) ug/dL % Saturation (15.00-50.00) Total Protein 5.8 L (6.3-8.2) g/dL Albumin 3.4 L (3.5-5.0) g/dL Assessment and Plan Plan: Assessment: 1. Acute kidney injury mostly prerenal secondary to intravascular volume depletion secondary to diuresis and diarrhea. Creatinine 1.0 today. No proteinuria on UA from March 2019. 2. Hypovolemic hyponatremia. Now appears hypervolemic. 3. Acute blood loss anemia status post blood transfusion this admission. Patient had recent colonoscopy done at the [facility]. EGD done this admission revealed large distal esophageal varices and small gastric fundal varices. Severe iron deficiency noted. 4. Chronic hepatitis B with liver cirrhosis. GI following. 5. Benign hypertension. Controlled. 6. Insulin-dependent diabetes mellitus. 7. Acute tracheobronchitis maintain on antibiotics. Infectious disease following. 8. Lower extremity edema. Plan: Liberalize fluid intake to 2000 mL per day per patient's request. I will change Lasix to 40 mg IV once daily. Maintain Aldactone 25 mg twice daily. Encourage oral intake. Avoid nephrotoxins. Hold Cozaar if systolic blood pressure less than 120. IV iron 3 doses. First dose today.
[2019-05-23] MEDS: HYDROCORTISONE 1% CREAM 454 GM JAR TOPICAL SCH ×2 (10:16→20:48)
[2019-05-23] MEDS: HYDROCORTISONE 2.5% RECTAL CREAM 30 GM TUBE RECTAL SCH ×2 (10:16→20:48)
--- NOTE | 2019-05-23 11:06 | PN ---
PROGRESS NOTE DATE OF SERVICE: 05/23/2019 Patient is a 73-year-old male seen sitting up at the bedside, is awake, alert, does state that his breathing is good right now while he is sitting up at bedside, resting. Denies any other complaints at this time. The patient is hemodynamically stable, afebrile, in no acute distress. PHYSICAL EXAM: Vital signs, temp is 98.5, heart rate is 92, respiratory rate is 18, blood pressure is 127/65, O2 saturations 98% on room air. HEENT. Head is normocephalic, atraumatic. Neck is supple. Trachea is midline. Lungs with some coarse breath sounds. No clear rales or wheezes. HEART: S1, S2 are heard. Not tachycardic. ABDOMEN: Soft. Bowel sounds are positive. EXTREMITIES: With 2+ edema bilaterally with bilateral Michael wraps covering areas of cellulitis. NEUROLOGIC: Patient is awake and alert. LABS: White count 7.4, hemoglobin is 8.7, hematocrit is 29.4 with 111,000 platelets. Sodium is 130, potassium is 4.9, chloride 101, CO2 is 23, anion gap is 6, BUN is 35, creatinine is 1.0, glucose is 184, calcium is 9.1, magnesium is 2.2. Total bilirubin is 1.3, AST 45, ALT 53, alkaline phosphatase is 87, total protein 5.8, albumin is 3.4. No new imaging to review. IMPRESSION: 1. Chronic obstructive pulmonary disease with asthma with acute exacerbation. 2. Lung fibrosis. 3. Myasthenia gravis. 4. Anemia secondary to gastrointestinal bleed .. 5. Hyponatremia. PLAN: Continue current medications which have been reviewed. Continue bronchodilators. Continue GI and DVT proper prophylaxis. Increase activity. We will continue to follow patient closely with you making further changes as necessary. MMODL / IJN: [id number] /
[2019-05-23 11:24] LABS: Glucose,Whole Blood 374 mg/dL (75-99)
[2019-05-23] MEDS: FUROSEMIDE 10 MG/ML 4 ML VIAL IV SCH (11:56)
[2019-05-23] MEDS: SODIUM FERRIC GLUCONAT-SUCROSE 125 MG in SODIUM CHLORIDE 0.9% 100 ML IVPB SCH (11:56)
[2019-05-23 14:13] VITALS: BMI 35.5
[2019-05-23 17:20] LABS: Glucose,Whole Blood 213 mg/dL (75-99)
--- NOTE | 2019-05-23 18:16 | PN ---
PROGRESS NOTE DATE OF DICTATION: 05/23/2019 The patient is a 73-year-old white male admitted to the hospital with acute tracheobronchitis and exacerbation of COPD. Today he complains of shortness of breath and was started on IV steroids. He is having some productive cough with yellow sputum. We were consulted for ongoing GI bleed and anemia. He had a colonoscopy at [facility] in 3 weeks ago that showed colon polyps and diverticulosis. He had an upper endoscopy done by me 2 days ago that showed severe lisbeth esophagitis, large esophageal varices and small gastric varices. The patient has been on fluconazole 100 mg daily. He says that his swallowing is slightly improved. History of chronic hepatitis B infection with liver cirrhosis; follows with a power distributor at [facility] in [place]. PHYSICAL EXAMINATION: He appears comfortable. No apparent distress. VITAL SIGNS: Stable. Blood pressure is 136/56, pulse rate 94, temperature 98.3. HEENT examination unremarkable. Conjunctivae pink. Sclerae anicteric. Oral cavity no lesions. NECK: No JVD or lymph node enlargement. CHEST: Clear to auscultation. HEART: Regular rate and rhythm. ABDOMEN: Soft. Bowel sounds are positive. No organomegaly. EXTREMITIES: Multiple bruises noted. LABS: Labs done from today show WBC 7.4, hemoglobin 8.7, platelets normal. Basic metabolic panel BUN is 35, creatinine 1. IMPRESSION: 1. Lisbeth esophagitis, on oral fluconazole. 2. Chronic hepatitis B infection with cirrhosis of the liver, maintained on oral lamivudine and follows at [facility]. 3. Gastrointestinal bleed, status post esophagogastroduodenoscopy 2 days ago that showed lisbeth esophagitis, large esophageal varices that were nonbleeding, small gastric fundal varices and portal hypertensive gastropathy. Colonoscopy 3 weeks ago at [facility] showed diverticulosis and polyps. 4. Acute tracheobronchitis, on antibiotics. 5. Chronic obstructive pulmonary disease exacerbation. RECOMMENDATIONS: Continue with current medical management. In regards to the GI bleed, his hemoglobin is stable. He still has intermittent rectal bleeding. Possibly that could be related to internal hemorrhoids. We will monitor his labs closely. Patient was advised to follow up with his power distributor at [facility] following discharge from the hospital. Thank you for this consultation. MMODL / IJN: [id number] /
[2019-05-23 20:08] LABS: Glucose,Whole Blood 397 mg/dL (75-99)
[2019-05-23] MEDS: MONTELUKAST 10 MG TAB PO SCH (20:48)
[2019-05-23] MEDS: INSULIN DETEMIR (LEVEMIR) 100 UNIT/ML SYR SQ SCH (21:02)
[2019-05-24] MEDS: PYRIDOSTIGMINE 60 MG TAB PO SCH ×6 (04:23→20:16)
[2019-05-24] MEDS: DEXAMETHASONE SOD PHOSPHATE 4 MG/ML 1 ML VIAL IV SCH ×3 (04:23→17:37)
[2019-05-24 06:55] LABS: Glucose,Whole Blood 97 mg/dL (75-99)
[2019-05-24] MEDS ORDERED: INSULIN ASPART (NovoLOG) 100 UNIT/ML VIAL SQ SCH (07:30)
[2019-05-24] MEDS: INSULIN ASPART (NovoLOG) 100 UNIT/ML VIAL SQ SCH ×7 (07:48→20:17)
[2019-05-24 09:23] LABS: Anisocytosis Slight; Basophils % (A) 0 %; Eosinophils % (A) 0 %; HCT 30.6 % (39.0-53.0); HGB 9.2 gm/dL (13.0-17.5); Hypochromasia Marked; Lymphocytes # (A) 0.3 k/uL (1.0-4.8); Lymphocytes % (A) 2 %; MCH 23.6 pg (25.0-35.0); MCHC 29.9 g/dL (31.0-37.0); MCV 78.7 fL (80.0-100.0); Mean Platelet Volume 6.1; Microcytosis Slight; Monocytes # (A) 0.4 k/uL (0-1.0); Monocytes % (A) 3 %; Neutrophils # (A) 13.9 k/uL (1.3-7.7); Neutrophils % (A) 95 %; Platelet Count 147 k/uL (150-450); RBC 3.88 m/uL (4.30-5.90); RDW 17.4 % (11.5-15.5); WBC 14.6 k/uL (3.8-10.6)
[2019-05-24 09:38] LABS: Albumin 3.5 g/dL (3.5-5.0); Calcium 9.3 mg/dL (8.4-10.2); Potassium 4.5 mmol/L (3.5-5.1); Total Bilirubin 1.3 mg/dL (0.2-1.3); Total Protein 5.9 g/dL (6.3-8.2)
[2019-05-24] MEDS: FUROSEMIDE 10 MG/ML 4 ML VIAL IV SCH ×2 (09:44→20:16)
[2019-05-24] MEDS: SODIUM FERRIC GLUCONAT-SUCROSE 125 MG in SODIUM CHLORIDE 0.9% 100 ML IVPB SCH (09:44)
[2019-05-24] MEDS: FERROUS SULFATE 325 MG TAB PO SCH ×2 (09:54→20:16)
[2019-05-24] MEDS: CHOLECALCIFEROL 1,000 UNIT TAB PO SCH (09:54)
[2019-05-24] MEDS: ISOSORBIDE MONONITRATE ER 30 MG TAB.ER.24H PO SCH (09:54)
[2019-05-24] MEDS: CYANOCOBALAMIN 500 MCG TAB PO SCH (09:54)
[2019-05-24] MEDS: FLUCONAZOLE 100 MG TAB PO SCH (09:54)
[2019-05-24] MEDS: FINASTERIDE 5 MG TAB PO SCH (09:54)
[2019-05-24] MEDS: FAMOTIDINE 20 MG TAB PO SCH ×2 (09:54→20:16)
[2019-05-24] MEDS: lamoTRIgine 100 MG TAB PO SCH ×2 (09:55→20:16)
[2019-05-24] MEDS: PANTOPRAZOLE 40 MG TABLET PO SCH (09:55)
[2019-05-24] MEDS: MULTIVITAMINS, THERA 1 EACH TAB PO SCH (09:55)
[2019-05-24] MEDS: LOSARTAN 50 MG TAB PO SCH (09:55)
[2019-05-24] MEDS: predniSONE 20 MG TAB PO SCH (09:55)
[2019-05-24] MEDS: SPIRONOLACTONE 25 MG TAB PO SCH ×2 (09:55→20:16)
[2019-05-24] MEDS: MAGNESIUM OXIDE 400 MG TAB PO SCH (09:55)
[2019-05-24] MEDS: LACTOBACILLUS ACIDOPH & BULGAR 1 EACH PACKET PO SCH ×2 (09:55→20:16)
[2019-05-24] MEDS: HYDROCORTISONE 1% CREAM 454 GM JAR TOPICAL SCH ×2 (10:03→20:17)
--- NOTE | 2019-05-24 10:13 | P.PN ---
Subjective Patient is seen in follow-up for acute kidney injury. Renal function is stable. Creatinine 1.04 today. Sodium level is 130 today. Oral intake is good. Denies vomiting or diarrhea. He has been voiding. Hemodynamically stable. Vital signs are stable. General: The patient appeared well nourished and normally developed. HEENT: Head exam is unremarkable. Neck is without jugular venous distension. LUNGS: Lungs are clear to auscultation and percussion. Breath sounds decreased. HEART: Rate and Rhythm are regular. First and second heart sounds normal. No murmurs, rubs or gallops. ABDOMEN: Abdominal exam reveals normal bowel sounds. Non-tender and non- distended. No evidence of peritonitis. EXTREMITITES: 1+ edema. Objective - Vital Signs Vital signs: Vital Signs Temp 98.4 F 05/24/19 07:35 Pulse 90 05/24/19 07:35 Resp 18 05/24/19 07:35 BP 129/61 05/24/19 07:35 Pulse Ox 97 05/24/19 07:35 Intake & Output 05/23/19 05/24/19 05/24/19 18:59 06:59 18:59 Intake Total 1286 529 Balance 1286 529 Weight 118.87 kg 118.4 kg Intake: Intake, IV Titration 100 Amount Sodium Ferric Gluconat- 100 Sucrose 125 mg In Sodium Chloride 0.9% 100 ml @ 100 mls/hr IVPB DAILY [facility] Rx#:[id number] Oral [id number] Other: Voiding Method Toilet Toilet # Voids 1 # Bowel Movements 1 - Labs CBC & Chem 7: 05/24/19 08:53 05/24/19 08:53 Labs: Abnormal Lab Results - Last 24 Hours (Table) 05/23/19 05/23/19 05/23/19 Range/Units 11: 17:08 20:07 WBC (3.8-10.6) k/uL RBC (4.30-5.90) m/uL Hgb (13.0-17.5) gm/dL Hct (39.0-53.0) % MCV (80.0-100.0) fL MCH (25.0-35.0) pg MCHC (31.0-37.0) g/dL RDW (11.5-15.5) % Plt Count (150-450) k/uL Neutrophils # (1.3-7.7) k/uL Lymphocytes # (1.0-4.8) k/uL Sodium (137-145) mmol/L BUN (9-20) mg/dL Glucose (74-99) mg/dL POC Glucose (mg/dL) 374 H 213 H 397 H (75-99) mg/dL Total Protein (6.3-8.2) g/dL 05/24/19 05/24/19 Range/Units 08:53 08:53 WBC 14.6 H (3.8-10.6) k/uL RBC 3.88 L (4.30-5.90) m/uL Hgb 9.2 L (13.0-17.5) gm/dL Hct 30.6 L (39.0-53.0) % MCV 78.7 L (80.0-100.0) fL MCH 23.6 L (25.0-35.0) pg MCHC 29.9 L (31.0-37.0) g/dL RDW 17.4 H (11.5-15.5) % Plt Count 147 L (150-450) k/uL Neutrophils # 13.9 H (1.3-7.7) k/uL Lymphocytes # 0.3 L (1.0-4.8) k/uL Sodium 130 L (137-145) mmol/L BUN 35 H (9-20) mg/dL Glucose 170 H (74-99) mg/dL POC Glucose (mg/dL) (75-99) mg/dL Total Protein 5.9 L (6.3-8.2) g/dL Assessment and Plan Plan: Assessment: 1. Acute kidney injury mostly prerenal secondary to intravascular volume depletion secondary to diuresis and diarrhea. Creatinine 1.04 today. No protei darius on UA from March 2019. 2. Hypovolemic hyponatremia. Now hypervolemic. 3. Acute blood loss anemia status post blood transfusion this admission. Patient had recent colonoscopy done at the [facility]. EGD done this admission revealed large distal esophageal varices and small gastric fundal varices. Severe iron deficiency noted. 4. Chronic hepatitis B with liver cirrhosis. GI following. 5. Benign hypertension. Controlled. 6. Insulin-dependent diabetes mellitus. 7. Acute tracheobronchitis maintain on antibiotics. Infectious disease following. 8. Lower extremity edema. Plan: Maintain fluid restriction of 2 L per day. Increase Lasix to 40 mg IV twice daily. Maintain Aldactone 25 mg twice daily. Encourage oral intake. Avoid nephrotoxins. Hold Cozaar if systolic blood pressure less than 120. IV iron 3 doses. Second dose today.
--- NOTE | 2019-05-24 10:33 | P.PN ---
Subjective Progress Note Date: 05/24/19 This is a 73-year-old male patient of Dr. Osorio who presents with worsening shortness of breath over the last couple days. He does mention that he noticed symptoms weeks ago but the last few days have been especially worse. Patient states that the shortness breath is exacerbated by exertion, he has some relief at rest. Patient has had a productive cough, with thick, yellow sputum. He states that he used [id number] cough suppressant which did give him some relief. Today he is sitting up in chair, in no acute distress. He is wearing 2 L of oxygen and states that he wears this at home as needed. He reports having chills at home and states that he has to wear several blankets at night. He also thinks he might have had a low-grade temp but has been afebrile since admission. He denies any chest pain, palpitations. He denies any nausea, vomiting, diarrhea. He denies any urinary frequency or burning. Past medical history includes: Myasthenia gravis, interstitial lung disease, CVA/TIA, diabetes mellitus, liver cirrhosis, myocardial infarction, hypothyroidism, obstructive sleep apnea, GERD with reflux, hearing disorder/deafness, hypertension hyperlipidemia, seizure disorder. On 05/11/2019 patient was seen and examined on the medical floor he is alert and oriented 3 in no apparent distress he is complaining of pain in his upper back, lower back, and both legs. He has a pain pump implanted however he states that his pain is not well controlled he is also still complaining of cough and shortness of breath especially with activity otherwise he denies any complaints there is no fever or chills no headache or dizziness no chest pain no nausea or vomiting no abdominal pain no diarrhea no burning was urination no frequency or urgency no hematuria.. On 05/12/2019 patient was seen and examined on the medical floor he is complaining of rectal bleeding that he relates to hemorrhoids he is complaining of back pain and he is still complaining of cough and shortness of breath and wheezing. Otherwise he denies any complaints there is no fever or chills no headache or dizziness no chest pain nausea or vomiting no abdominal pain no diarrhea no burning was urination no frequency or urgency no hematuria. On 05/13/2019 patient is feeling slightly improved today. Patient still complaining of some shortness of breath and cough. Patient maintained on Mucinex. Patient is alert and oriented 3. Stool for occult blood has been ordered. Patient having cough with positive sputum production. Patient denies chest pain. Patient denies nausea vomiting or diarrhea. Patient denies any urinary burning or frequency 05/14/2019 patient is still having some shortness of breath with sputum production. Patient reports that he is having some blood in stool likely from hemorrhoids. Patient reports he had colonoscopy approximately 3 weeks ago at [facility]. Stool for occult blood have been ordered. Patient remains on antibiotics per ID and pulmonary services following. Patient denies chest pain. Patient denies any nausea or vomiting. Patient denies any urinary burning or frequency On 05/15/2019 patient is sitting up at site of bed reporting that his shortness of breath has not improved. Antibiotics maintained. Mucinex as needed. He is still complaining of loose stools this morning with irritation secondary to hemorrhoids. Will continue Imodium. Hydrocortisone topical added for local treatment per GI. No plans for endoscopic evaluation. Patient denies chest pain. Patient denies any nausea or vomiting patient denies any urinary frequency. On 05/16/2019 Patient is up moving around the room. Reports feeling worse today. Patient shortness of breath has not improved and is complaining of lower back pain. Creatinine 1.23 from 1.20. Antibiotics maintained. Per Dr. Walker, patient will receive Decadron 3 doses. Overnight he had one episode of bleeding with bowel movement. Hemoglobin stable. Continue topical management for hemorrhoids. Patient denies chest pain. Patient denies any nausea vomiting or urinary burning or frequency. On 05/17/2019 patient alert and oriented 3. Patient's lung sounds sound slightly improved compared to yesterday. Patient remains on Decadron. Patient's sodium also at 128. Patient placed on fluid restriction due to this issue. Hemoglobin remained stable. Blood sugars elevated due to Decadron and noncompliance with diabetic diet. Patient denies chest pain. Patient is complaining of lower back pain that is chronic for him. Patient does have morphine pain pump along with [place] for breakthrough pain. On 05/18/2019 patient was seen and examined on the medical floor he is complaining of low water intake however his sodium level is down to 127 he has been off diuretics at this time will restart IV fluid normal saline at 50 mL an hour. Patient also is complaining of diarrhea and blood in the stool, we are still awaiting stool sample for C. diff. He is still complaining of cough shortness of breath and wheezing Otherwise he denies any complaints there is no fever or chills no headache or dizziness no chest pain no nausea or vomiting no abdominal pain no burning was urination no frequency or urgency and no hematuria On 05/19/2019 patient is still complaining of diarrhea he is complaining of blood in his stools. He is still complaining of cough and shortness of breath, otherwise he denies any complaints there is no fever or chills no headache or dizziness no chest pain no nausea or vomiting no abdominal pain, no burning with urination no frequency or urgency and no hematuria On 05/20/2019 patient is alert and oriented 3. Patient is still having some diarrhea with bleeding from hemorrhoids. Hemoglobin improving to 8.2. GI services following. Patient is still short of breath with activity patient remains on Decadron. Sodium improving to 129. Nephrology services following. Patient denies chest pain. Patient denies nausea or vomiting. Patient denies any urinary burning frequency. C. diff sample has been ordered. Discussed with nursing staff On 05/21/2019 patient's alert and oriented 3. Patient reports some improvement with shortness of breath. Per nursing staff C. diff sample was attempted to be sent up her lab unable to test due to stool being formed. Patient will undergo EGD today per GI services sodium improving to 132. Lasix has been resumed per nephrology. Patient denies chest pain. Patient denies nausea or vomiting. Patient denies any urinary burning or frequency On 05/22/2019 patient's alert and oriented 3. Patient underwent EGD. Hemo globin 8.3. Sodium remained stable at 132. Decadron has been DC'd per pulmonary. Patient remains on prednisone and Levaquin. Patient denies chest pain. Patient denies nausea vomiting or diarrhea. Patient denies any urinary burning or frequency. On 05/23/2019 patient's alert and oriented 3. Patient reports some improvement. Hemoglobin 8.7. Patient currently on Diflucan for Lisbeth esopha gitis. Patient has been started back on Decadron per pulmonary. Lasix increased per nephrology. Patient denies chest pain. Patient denies nausea vomiting or diarrhea. Patient denies any urinary burning and frequency On 05/24/2019 patient's alert and oriented 3. Patient showing some improvement his breathing. Hemoglobin 9.2. 3 days of IV iron has been ordered per nephrology services sodium 130. This time patient denies chest pain. Denies nausea vomiting or diarrhea. Denies any urinary burning or frequency Objective - Vital Signs Vital signs: Vital Signs Temp 98.4 F 05/24/19 07:35 Pulse 90 05/24/19 07:35 Resp 18 05/24/19 07:35 BP 129/61 05/24/19 07:35 Pulse Ox 97 05/24/19 07:35 Intake & Output 05/23/19 05/24/19 05/24/19 18:59 06:59 18:59 Intake Total 1286 529 Balance 1286 529 Weight 118.87 kg 118.4 kg Intake: Intake, IV Titration 100 Amount Sodium Ferric Gluconat- 100 Sucrose 125 mg In Sodium Chloride 0.9% 100 ml @ 100 mls/hr IVPB DAILY [facility] Rx#:[id number] Oral [id number] Other: Voiding Method Toilet Toilet # Voids 1 # Bowel Movements 1 - Exam In general patient is alert and oriented 3 in no apparent distress HEENT head normocephalic and atraumatic Neck is supple no JVD no goiter no lymphadenopathy Chest exam reveals a few scattered crackles no wheezing Cardiac exam reveals regular heart sounds no gallops no murmurs Abdomen is soft nontender no organomegaly with normal bowel sounds Extremity exam reveals 2+ edema with mild erythema and warmth in the pretibial areas Neurological examination reveals no gross focal deficit - Labs CBC & Chem 7: 05/24/19 08:53 05/24/19 08:53 Labs: Abnormal Lab Results - Last 24 Hours (Table) 05/23/19 05/23/19 05/23/19 Range/Units 11:21 17:08 20:07 WBC (3.8-10.6) k/uL RBC (4.30-5.90) m/uL Hgb (13.0-17.5) gm/dL Hct (39.0-53.0) % MCV (80.0-100.0) fL MCH (25.0-35.0) pg MCHC (31.0-37.0) g/dL RDW (11.5-15.5) % Plt Count (150-450) k/uL Neutrophils # (1.3-7.7) k/uL Lymphocytes # (1.0-4.8) k/uL Sodium (137-145) mmol/L BUN (9-20) mg/dL Glucose (74-99) mg/dL POC Glucose (mg/dL) 374 H 213 H 397 H (75-99) mg/dL Total Protein (6.3-8.2) g/dL 05/24/19 05/24/19 Range/Units 08:53 08:53 WBC 14.6 H (3.8-10.6) k/uL RBC 3.88 L (4.30-5.90) m/uL Hgb 9.2 L (13.0-17.5) gm/dL Hct 30.6 L (39.0-53.0) % MCV 78.7 L (80.0-100.0) fL MCH 23.6 L (25.0-35.0) pg MCHC 29.9 L (31.0-37.0) g/dL RDW 17.4 H (11.5-15.5) % Plt Count 147 L (150-450) k/uL Neutrophils # 13.9 H (1.3-7.7) k/uL Lymphocytes # 0.3 L (1.0-4.8) k/uL Sodium 130 L (137-145) mmol/L BUN 35 H (9-20) mg/dL Glucose 170 H (74-99) mg/dL POC Glucose (mg/dL) (75-99) mg/dL Total Protein 5.9 L (6.3-8.2) g/dL Assessment and Plan Assessment: 1. Dyspnea related to acute exacerbation of interstitial lung disease and acute tracheobronchitis. Pulmonary service was consulted. Patient is on prednisone due to ALLERGY to Solu-Medrol. Chest x-ray obtained in ER, impression is moderate pulmonary interstitial fibrosis is unchanged. Per Pulmonary patient maintained on Decadron. 2. Acute tracheobronchitis. Levaquin continued. Sputum sample negative. Mucinex added. 3. Bilateral lower extremity cellulitis. Consulted ID services. Clindamycin discontinued per ID. 4. History of interstitial lung disease/pulmonary fibrosis history of chronic hypoxemic respiratory failure. Patient is maintained on home O2 5. Iron deficiency anemia with blood in stool noted per patient. Patient has required IV iron transfusions in the past. Patient is having rectal bleeding at this time, which is mild and he relates it to hemorrhoids. Patient had a colonoscopy 2 weeks ago at the [facility] in [place] will try to obtain records. Per GI services, Hydrocortisone topical therapy for local hemorrhoid. Will start patient on ferrous sulfate given low iron studies. 1 unit of PRBCs given. Per GI services awaiting records of colonoscopy from [facility] possible repeat colonoscopy and EGD. Status post EGD showing small gastric fundal varices with no active bleeding large distal esophageal varices and portal hypertensive gastric Lisbeth esophagitis. Per GI services continue [id number] mg daily. 2 days of IV iron has been ordered per nephrology 6. History of chronic diastolic congestive heart failure. Last echo completed December 2016. EF between 50 and 55%. 7. History of CAD. Patient underwent cardiac catheterization in August 2017, conclusion normal coronary artery angiogram, normal left ventricle end-diastolic pressure. 8. History of myasthenia gravis. Maintained on pyridostigmine. Follows with neurology outpatient. 9. History of diabetes mellitus type 2. Last hemoglobin A1c of 7.9 (from 10/26/18). Resume home insulin. Add sliding scale coverage. Educated about the importance of a low carb diet. 10. Hypertension essential. Resume home medications with parameters. 11. History of nonalcoholic liver cirrhosis 12. Chronic pain syndrome with morphine pump. Patient follows with Dr. Jernigan 13. History of obstructive sleep apnea. Unable to tolerate home CPAP, patient wears 2 L O2 as needed at home 14. History of seizure disorder. Maintain on Lamictal. Last seizure 2018 per patient. 15. History of GERD with reflux. Maintained on Pepcid and Protonix 16. History of former smoker 17. thrombocytopenia likely secondary to history of liver cirrhosis. 18. Patient is complaining of uncontrolled pain in his upper back lower back and bilateral lower extremities at this time will add [place], patient should return to his pain specialist as outpatient for adjustment of his pain pump or f urther management of his chronic pain. 19. Acute kidney injury. Creatinine elevated at 1.37 we'll continue to monitor at this time. Creatinine down trending 1.23 20. Diarrhea. Patient has had loose stools for 2 days. Patient mentions having chronic diarrhea at home and maintains on Imodium. He completed a colonoscopy 2 weeks ago at the [facility] in [place]. Awaiting C. diff collection, patient only had 1 bowel movement overnight with blood present. Continue Imodium as needed. Probiotic ordered per GI. Stool for C. diff has been ordered. Per lab unable to test due to formation of stool 21. Hyponatremia. Sodium 127. We'll hold Aldactone and Lasix today and repeat labs tomorrow. Patient placed on fluid restriction. Nephrology services are following. Sodium improving to 129. Fluids currently locked per nephro. Sodium improving to 132 Lasix has been resumed for nephrology. Per nephrology fluid restriction increased to 1800 mls per day patient maintained on Lasix. Aldactone resumed 22. Lisbeth esophagitis. Patient started on Diflucan per GI services DVT prophylaxis SCDs due blood in stool and anemia. GI prophylaxis Pepcid Protonix I performed an examination of the patient and discussed their management with the Nurse Practitioner. I have reviewed the Nurse Practitioner's notes and agree with the documented findings and plan of care
[2019-05-24 11:02] LABS: Glucose,Whole Blood 327 mg/dL (75-99)
[2019-05-24] MEDS: Lamivudine [Lamivudine] 300 MG PO SCH (11:12)
[2019-05-24] MEDS: HYDROCORTISONE 2.5% RECTAL CREAM 30 GM TUBE RECTAL SCH ×2 (12:25→20:54)
--- NOTE | 2019-05-24 13:47 | PN ---
PROGRESS NOTE DATE OF SERVICE: 05/24/2019 The patient is a 73-year-old male who is seen up ambulating in the room, awake, alert, oriented, feeling a bit better. Breathing is improving, less coughing, less mucus production. The patient is afebrile, hemodynamically stable, in no acute distress. PHYSICAL EXAMINATION: VITAL SIGNS: Temp 98.8, heart rate is 90, respiratory rate is 18, blood pressure is 132/59, O2 sats 95% on room air. HEENT: Head is normocephalic, atraumatic. NECK: Is supple. Trachea is midline. LUNGS: With improved air entry with a few scattered expiratory wheezes. HEART: S1, S2 heard. Not tachycardic. ABDOMEN: Soft. Bowel sounds are heard. EXTREMITIES: With 1+ edema. NEUROLOGIC: Patient is awake and alert. LABS: White count is 14.6, hemoglobin 9.2, hematocrit 30.6 with 147,000 platelets. Sodium is 130, potassium is 4.5, chloride 102, CO2 is 22, anion gap is 6. BUN is 35, creatinine is 1.04. Glucose is 170. Calcium is 9.3. Total bilirubin is 1.3, AST is 50, ALT is 65, alkaline phosphatase is 88. Total protein 5.9. Albumin is 3.5. No new imaging to review. IMPRESSION: 1. Chronic obstructive pulmonary disease with asthma with acute exacerbation. 2. Lung fibrosis. 3. Myasthenia gravis. 4. Anemia secondary to gastrointestinal bleed. 5. Hyponatremia. PLAN: Will start weaning the Decadron, decrease to 4 mg IV q.8 hours. Continue bronchodilators. Continue GI and DVT prophylaxis. Continue to increase activity. Encourage deep breathing and pulmonary hygiene and will follow patient closely with you making further changes as necessary. MMODL / IJN: [id number] /
[2019-05-24 17:10] LABS: Glucose,Whole Blood 177 mg/dL (75-99)
[2019-05-24 20:00] LABS: Glucose,Whole Blood 206 mg/dL (75-99)
[2019-05-24] MEDS: MONTELUKAST 10 MG TAB PO SCH (20:16)
[2019-05-24] MEDS: INSULIN DETEMIR (LEVEMIR) 100 UNIT/ML SYR SQ SCH (20:17)
[2019-05-24] MEDS: HYDROcodone/APAP 7.5-325MG 1 EACH TAB PO PRN ×2 (20:21)
[2019-05-25] MEDS: PYRIDOSTIGMINE 60 MG TAB PO SCH ×6 (00:14→17:30)
[2019-05-25] MEDS: DEXAMETHASONE SOD PHOSPHATE 4 MG/ML 1 ML VIAL IV SCH ×3 (00:14→17:30)
[2019-05-25] MEDS: HYDROcodone/APAP 7.5-325MG 1 EACH TAB PO PRN ×2 (06:29→18:25)
[2019-05-25 06:49] LABS: Anisocytosis Slight; Basophils % (A) 0 %; Eosinophils % (A) 0 %; HCT 28.8 % (39.0-53.0); HGB 8.9 gm/dL (13.0-17.5); Hypochromasia Marked; Lymphocytes # (A) 0.5 k/uL (1.0-4.8); Lymphocytes % (A) 5 %; MCH 23.8 pg (25.0-35.0); MCHC 30.8 g/dL (31.0-37.0); MCV 77.3 fL (80.0-100.0); Mean Platelet Volume 5.9; Microcytosis Slight; Monocytes # (A) 0.3 k/uL (0-1.0); Monocytes % (A) 3 %; Neutrophils # (A) 8.3 k/uL (1.3-7.7); Neutrophils % (A) 91 %; Platelet Count 107 k/uL (150-450); RBC 3.73 m/uL (4.30-5.90); RDW 17.3 % (11.5-15.5); WBC 9.2 k/uL (3.8-10.6)
[2019-05-25 06:59] LABS: Glucose,Whole Blood 224 mg/dL (75-99)
[2019-05-25 07:06] LABS: Albumin 3.4 g/dL (3.5-5.0); Calcium 9.1 mg/dL (8.4-10.2); Magnesium 2.3 mg/dL (1.6-2.3); Potassium 4.7 mmol/L (3.5-5.1); Total Protein 5.7 g/dL (6.3-8.2)
[2019-05-25] MEDS: FERROUS SULFATE 325 MG TAB PO SCH ×2 (08:08→20:23)
[2019-05-25] MEDS: SPIRONOLACTONE 25 MG TAB PO SCH ×2 (08:08→20:23)
[2019-05-25] MEDS: CHOLECALCIFEROL 1,000 UNIT TAB PO SCH (08:08)
[2019-05-25] MEDS: FAMOTIDINE 20 MG TAB PO SCH ×2 (08:08→20:23)
[2019-05-25] MEDS: ISOSORBIDE MONONITRATE ER 30 MG TAB.ER.24H PO SCH (08:08)
[2019-05-25] MEDS: MULTIVITAMINS, THERA 1 EACH TAB PO SCH (08:08)
[2019-05-25] MEDS: LOSARTAN 50 MG TAB PO SCH (08:09)
[2019-05-25] MEDS: lamoTRIgine 100 MG TAB PO SCH ×2 (08:09→20:23)
[2019-05-25] MEDS: FLUCONAZOLE 100 MG TAB PO SCH (08:09)
[2019-05-25] MEDS: predniSONE 20 MG TAB PO SCH (08:09)
[2019-05-25] MEDS: PANTOPRAZOLE 40 MG TABLET PO SCH (08:09)
[2019-05-25] MEDS: CYANOCOBALAMIN 500 MCG TAB PO SCH (08:09)
[2019-05-25] MEDS: MAGNESIUM OXIDE 400 MG TAB PO SCH (08:09)
[2019-05-25] MEDS: FUROSEMIDE 10 MG/ML 4 ML VIAL IV SCH ×2 (08:10→20:24)
[2019-05-25] MEDS: LACTOBACILLUS ACIDOPH & BULGAR 1 EACH PACKET PO SCH ×2 (08:10→20:24)
[2019-05-25] MEDS: INSULIN ASPART (NovoLOG) 100 UNIT/ML VIAL SQ SCH ×7 (08:11→20:22)
[2019-05-25] MEDS: HYDROCORTISONE 2.5% RECTAL CREAM 30 GM TUBE RECTAL SCH ×2 (08:16→20:27)
[2019-05-25] MEDS: HYDROCORTISONE 1% CREAM 454 GM JAR TOPICAL SCH ×2 (08:17→20:26)
--- NOTE | 2019-05-25 09:16 | P.PN ---
Subjective Patient is seen in follow-up for acute kidney injury. Renal function is stable. Creatinine 1.07 today. Sodium level is 129 today. Oral intake is fair. Has some difficulty swallowing due to the esophagitis. Denies vomiting or diarrhea. He has been voiding. Hemodynamically stable. Vital signs are stable. General: The patient appeared well nourished and normally developed. HEENT: Head exam is unremarkable. Neck is without jugular venous distension. LUNGS: Lungs are clear to auscultation and percussion. Breath sounds decreased. HEART: Rate and Rhythm are regular. First and second heart sounds normal. No murmurs, rubs or gallops. ABDOMEN: Abdominal exam reveals normal bowel sounds. Non-tender and non- distended. No evidence of peritonitis. EXTREMITITES: 1+ edema. Objective - Vital Signs Vital signs: Vital Signs Temp 98.0 F 05/25/19 06:26 Pulse 86 05/25/19 06:26 Resp 16 05/25/19 06:26 BP 152/75 05/25/19 06:26 Pulse Ox 98 05/25/19 06:26 Intake & Output 05/24/19 05/25/19 05/25/19 18:59 06:59 18:59 Intake Total 1370 Output Total 1000 Balance 370 Weight 117.537 kg Intake: Oral 1370 Output: Urine 1000 Other: Voiding Method Toilet Toilet Urinal Urinal # Voids 4 - Labs CBC & Chem 7: 05/25/19 06:29 05/25/19 06:29 Labs: Abnormal Lab Results - Last 24 Hours (Table) 05/24/19 05/24/19 05/24/19 Range/Units 08:53 08:53 11:01 WBC 14.6 H (3.8-10.6) k/uL RBC 3.88 L (4.30-5.90) m/uL Hgb 9.2 L (13.0-17.5) gm/dL Hct 30.6 L (39.0-53.0) % MCV 78.7 L (80.0-100.0) fL MCH 23.6 L (25.0-35.0) pg MCHC 29.9 L (31.0-37.0) g/dL RDW 17.4 H (11.5-15.5) % Plt Count 147 L (150-450) k/uL Neutrophils # 13.9 H (1.3-7.7) k/uL Lymphocytes # 0.3 L (1.0-4.8) k/uL Sodium 130 L (137-145) mmol/L BUN 35 H (9-20) mg/dL Glucose 170 H (74-99) mg/dL POC Glucose (mg/dL) 327 H (75-99) mg/dL Total Protein 5.9 L (6.3-8.2) g/dL Albumin (3.5-5.0) g/dL 05/24/19 05/24/19 05/25/19 Range/Units 17:09 19:58 06:29 WBC (3.8-10.6) k/uL RBC 3.73 L (4.30-5.90) m/uL Hgb 8.9 L (13.0-17.5) gm/dL Hct 28.8 L (39.0-53.0) % MCV 77.3 L (80.0-100.0) fL MCH 23.8 L (25.0-35.0) pg MCHC 30.8 L (31.0-37.0) g/dL RDW 17.3 H (11.5-15.5) % Plt Count 107 L (150-450) k/uL Neutrophils # 8.3 H (1.3-7.7) k/uL Lymphocytes # 0.5 L (1.0-4.8) k/uL Sodium (137-145) mmol/L BUN (9-20) mg/dL Glucose (74-99) mg/dL POC Glucose (mg/dL) 177 H 206 H (75-99) mg/dL Total Protein (6.3-8.2) g/dL Albumin (3.5-5.0) g/dL 05/25/19 05/25/19 Range/Units 06:29 06:58 WBC (3.8-10.6) k/uL RBC (4.30-5.90) m/uL Hgb (13.0-17.5) gm/dL Hct (39.0-53.0) % MCV (80.0-100.0) fL MCH (25.0-35.0) pg MCHC (31.0-37.0) g/dL RDW (11.5-15.5) % Plt Count (150-450) k/uL Neutrophils # (1.3-7.7) k/uL Lymphocytes # (1.0-4.8) k/uL Sodium 129 L (137-145) mmol/L BUN 38 H (9-20) mg/dL Glucose 188 H (74-99) mg/dL POC Glucose (mg/dL) 224 H (75-99) mg/dL Total Protein 5.7 L (6.3-8.2) g/dL Albumin 3.4 L (3.5-5.0) g/dL Assessment and Plan Plan: Assessment: 1. Acute kidney injury mostly prerenal secondary to intravascular volume depletion secondary to diuresis and diarrhea. Creatinine 1.07 today. No proteinuria on UA from March 2019. 2. Hypovolemic hyponatremia. Now hypervolemic. 3. Acute blood loss anemia status post blood transfusion this admission. Patient had recent colonoscopy done at the [facility]. EGD done this admission revealed large distal esophageal varices and small gastric fundal varices. Severe iron deficiency noted. 4. Chronic hepatitis B with liver cirrhosis. GI following. 5. Benign hypertension. Controlled. 6. Insulin-dependent diabetes mellitus. 7. Acute tracheobronchitis maintain on antibiotics. Infectious disease following. 8. Lower extremity edema. Plan: Maintain fluid restriction of 2 L per day. Encouraged solute intake, particularly protein. Maintain IV Lasix 40 mg twice daily. Maintain Aldactone 25 mg twice daily. Encourage oral intake. Avoid nephrotoxins. Hold Cozaar if systolic blood pressure less than 120. IV iron 3 doses. Third dose today.
[2019-05-25] MEDS: SODIUM FERRIC GLUCONAT-SUCROSE 125 MG in SODIUM CHLORIDE 0.9% 100 ML IVPB SCH (09:52)
[2019-05-25] MEDS: Lamivudine [Lamivudine] 300 MG PO SCH (10:25)
[2019-05-25 11:29] LABS: Glucose,Whole Blood 423 mg/dL (75-99)
[2019-05-25] MEDS: FINASTERIDE 5 MG TAB PO SCH (11:49)
--- NOTE | 2019-05-25 13:00 | P.PN ---
Subjective Progress Note Date: 05/25/19 This is a 73-year-old male patient of Dr. Osorio who presents with worsening shortness of breath over the last couple days. He does mention that he noticed symptoms weeks ago but the last few days have been especially worse. Patient states that the shortness breath is exacerbated by exertion, he has some relief at rest. Patient has had a productive cough, with thick, yellow sputum. He states that he used [id number] cough suppressant which did give him some relief. Today he is sitting up in chair, in no acute distress. He is wearing 2 L of oxygen and states that he wears this at home as needed. He reports having chills at home and states that he has to wear several blankets at night. He also thinks he might have had a low-grade temp but has been afebrile since admission. He denies any chest pain, palpitations. He denies any nausea, vomiting, diarrhea. He denies any urinary frequency or burning. Past medical history includes: Myasthenia gravis, interstitial lung disease, CVA/TIA, diabetes mellitus, liver cirrhosis, myocardial infarction, hypothyroidism, obstructive sleep apnea, GERD with reflux, hearing disorder/deafness, hypertension hyperlipidemia, seizure disorder. On 05/11/2019 patient was seen and examined on the medical floor he is alert and oriented 3 in no apparent distress he is complaining of pain in his upper back, lower back, and both legs. He has a pain pump implanted however he states that his pain is not well controlled he is also still complaining of cough and shortness of breath especially with activity otherwise he denies any complaints there is no fever or chills no headache or dizziness no chest pain no nausea or vomiting no abdominal pain no diarrhea no burning was urination no frequency or urgency no hematuria.. On 05/12/2019 patient was seen and examined on the medical floor he is complaining of rectal bleeding that he relates to hemorrhoids he is complaining of back pain and he is still complaining of cough and shortness of breath and wheezing. Otherwise he denies any complaints there is no fever or chills no headache or dizziness no chest pain nausea or vomiting no abdominal pain no diarrhea no burning was urination no frequency or urgency no hematuria. On 05/13/2019 patient is feeling slightly improved today. Patient still complaining of some shortness of breath and cough. Patient maintained on Mucinex. Patient is alert and oriented 3. Stool for occult blood has been ordered. Patient having cough with positive sputum production. Patient denies chest pain. Patient denies nausea vomiting or diarrhea. Patient denies any urinary burning or frequency 05/14/2019 patient is still having some shortness of breath with sputum production. Patient reports that he is having some blood in stool likely from h emorrhoids. Patient reports he had colonoscopy approximately 3 weeks ago at [facility]. Stool for occult blood have been ordered. Patient remains on antibiotics per ID and pulmonary services following. Patient denies chest pain. Patient denies any nausea or vomiting. Patient denies any urinary burning or frequency On 05/15/2019 patient is sitting up at site of bed reporting that his shortness of breath has not improved. Antibiotics maintained. Mucinex as needed. He is still complaining of loose stools this morning with irritation secondary to hemorrhoids. Will continue Imodium. Hydrocortisone topical added for local treatment per GI. No plans for endoscopic evaluation. Patient denies chest pain. Patient denies any nausea or vomiting patient denies any urinary frequency. On 05/16/2019 Patient is up moving around the room. Reports feeling worse today. Patient shortness of breath has not improved and is complaining of lower back pain. Creatinine 1.23 from 1.20. Antibiotics maintained. Per Dr. Walker, patient will receive Decadron 3 doses. Overnight he had one episode of bleeding with bowel movement. Hemoglobin stable. Continue topical management for hemorrhoids. Patient denies chest pain. Patient denies any nausea vomiting or urinary burning or frequency. On 05/17/2019 patient alert and oriented 3. Patient's lung sounds sound slightly improved compared to yesterday. Patient remains on Decadron. Patient's sodium also at 128. Patient placed on fluid restriction due to this issue. Hemoglobin remained stable. Blood sugars elevated due to Decadron and noncompliance with diabetic diet. Patient denies chest pain. Patient is complaining of lower back pain that is chronic for him. Patient does have morphine pain pump along with [place] for breakthrough pain. On 05/18/2019 patient was seen and examined on the medical floor he is complaining of low water intake however his sodium level is down to 127 he has been off diuretics at this time will restart IV fluid normal saline at 50 mL an hour. Patient also is complaining of diarrhea and blood in the stool, we are still awaiting stool sample for C. diff. He is still complaining of cough shortness of breath and wheezing Otherwise he denies any complaints there is no fever or chills no headache or dizziness no chest pain no nausea or vomiting no abdominal pain no burning was urination no frequency or urgency and no hematuria On 05/19/2019 patient is still complaining of diarrhea he is complaining of blood in his stools. He is still complaining of cough and shortness of breath, otherwise he denies any complaints there is no fever or chills no headache or dizziness no chest pain no nausea or vomiting no abdominal pain, no burning with urination no frequency or urgency and no hematuria. On 05/20/2019 patient is alert and oriented 3. Patient is still having some diarrhea with bleeding from hemorrhoids. Hemoglobin improving to 8.2. GI services following. Patient is still short of breath with activity patient remains on Decadron. Sodium improving to 129. Nephrology services following. Patient denies chest pain. Patient denies nausea or vomiting. Patient denies any urinary burning frequency. C. diff sample has been ordered. Discussed with nursing staff On 05/21/2019 patient's alert and oriented 3. Patient reports some improvement with shortness of breath. Per nursing staff C. diff sample was attempted to be sent up her lab unable to test due to stool being formed. Patient will undergo EGD today per GI services sodium improving to 132. Lasix has been resumed per nephrology. Patient denies chest pain. Patient denies nausea or vomiting. Patient denies any urinary burning or frequency On 05/22/2019 patient's alert and oriented 3. Patient underwent EGD. H emoglobin 8.3. Sodium remained stable at 132. Decadron has been DC'd per pulmonary. Patient remains on prednisone and Levaquin. Patient denies chest pain. Patient denies nausea vomiting or diarrhea. Patient denies any urinary burning or frequency. On 05/23/2019 patient's alert and oriented 3. Patient reports some improvement. Hemoglobin 8.7. Patient currently on Diflucan for Lisbeth eso phagitis. Patient has been started back on Decadron per pulmonary. Lasix increased per nephrology. Patient denies chest pain. Patient denies nausea vomiting or diarrhea. Patient denies any urinary burning and frequency On 05/24/2019 patient's alert and oriented 3. Patient showing some improvement his breathing. Hemoglobin 9.2. 3 days of IV iron has been ordered per nephrology services sodium 130. This time patient denies chest pain. Denies nausea vomiting or diarrhea. Denies any urinary burning or frequency. On 05/25/2019 patient was seen and examined on the medical floor he is alert and oriented 3 in no apparent distress he is still complaining of blood in the stools and complaining of shortness of breath especially was activity he has occasional cough with white to yellow sputum production otherwise he denies any complaints there is no fever or chills no headache or dizziness no chest pain no nausea or vomiting no abdominal pain no diarrhea no burning with urination no frequency or urgency and no hematuria sodium is down again to 129 patient was counseled in length in regards to fluid restriction Objective - Vital Signs Vital signs: Vital Signs Temp 98.0 F 05/25/19 06:26 Pulse 86 05/25/19 08:30 Resp 16 05/25/19 08:30 BP 152/75 05/25/19 06:26 Pulse Ox 98 05/25/19 06:26 Intake & Output 05/24/19 05/25/19 05/25/19 18:59 06:59 18:59 Intake Total 1370 500 Output Total 1000 Balance 370 500 Weight 117.537 kg Intake: Oral 1370 500 Output: Urine 1000 Other: Voiding Method Toilet Toilet Toilet Urinal Urinal Urinal # Voids 4 900 - Exam In general patient is alert and oriented 3 in no apparent distress HEENT head normocephalic and atraumatic Neck is supple no JVD no goiter no lymphadenopathy Chest exam reveals a few scattered crackles no wheezing Cardiac exam reveals regular heart sounds no gallops no murmurs Abdomen is soft nontender no organomegaly with normal bowel sounds Extremity exam reveals 2+ edema with mild erythema and warmth in the pretibial areas Neurological examination reveals no gross focal deficit - Labs CBC & Chem 7: 05/25/19 06:29 05/25/19 06:29 Labs: Abnormal Lab Results - Last 24 Hours (Table) 05/24/19 05/24/19 05/25/19 Range/Units 17:09 19:58 06:29 RBC 3.73 L (4.30-5.90) m/uL Hgb 8.9 L (13.0-17.5) gm/dL Hct 28.8 L (39.0-53.0) % MCV 77.3 L (80.0-100.0) fL MCH 23.8 L (25.0-35.0) pg MCHC 30.8 L (31.0-37.0) g/dL RDW 17.3 H (11.5-15.5) % Plt Count 107 L (150-450) k/uL Neutrophils # 8.3 H (1.3-7.7) k/uL Lymphocytes # 0.5 L (1.0-4.8) k/uL Sodium (137-145) mmol/L BUN (9-20) mg/dL Glucose (74-99) mg/dL POC Glucose (mg/dL) 177 H 206 H (75-99) mg/dL Total Protein (6.3-8.2) g/dL Albumin (3.5-5.0) g/dL 05/25/19 05/25/19 05/25/19 Range/Units 06:29 06:58 11:28 RBC (4.30-5.90) m/uL Hgb (13.0-17.5) gm/dL Hct (39.0-53.0) % MCV (80.0-100.0) fL MCH (25.0-35.0) pg MCHC (31.0-37.0) g/dL RDW (11.5-15.5) % Plt Count (150-450) k/uL Neutrophils # (1.3-7.7) k/uL Lymphocytes # (1.0-4.8) k/uL Sodium 129 L (137-145) mmol/L BUN 38 H (9-20) mg/dL Glucose 188 H (74-99) mg/dL POC Glucose (mg/dL) 224 H 423 H (75-99) mg/dL Total Protein 5.7 L (6.3-8.2) g/dL Albumin 3.4 L (3.5-5.0) g/dL Assessment and Plan Plan: 1. Dyspnea related to acute exacerbation of interstitial lung disease and acute tracheobronchitis. Pulmonary service was consulted. Patient is on prednisone due to ALLERGY to Solu-Medrol. Chest x-ray obtained in ER, impression is moderate pulmonary interstitial fibrosis is unchanged. Per Pulmonary patient maintained on Decadron. 2. Acute tracheobronchitis. Levaquin continued. Sputum sample negative. Mucinex added. 3. Bilateral lower extremity cellulitis. Consulted ID services. Clindamycin discontinued per ID. 4. History of interstitial lung disease/pulmonary fibrosis history of chronic hypoxemic respiratory failure. Patient is maintained on home O2 5. Iron deficiency anemia with blood in stool noted per patient. Patient has required IV iron transfusions in the past. Patient is having rectal bleeding at this time, which is mild and he relates it to hemorrhoids. Patient had a colonoscopy 2 weeks ago at the [facility] in [place] will try to obtain records. Per GI services, Hydrocortisone topical therapy for local hemorrhoid. Will start patient on ferrous sulfate given low iron studies. 1 unit of PRBCs given. Per GI services awaiting records of colonoscopy from [facility] possible repeat colonoscopy and EGD. Status post EGD showing small gastric fundal varices with no active bleeding large distal esophageal varices and portal hypertensive gastric Lisbeth esophagitis. Per GI services continue [id number] mg daily. 2 days of IV iron has been ordered per nephrology 6. History of chronic diastolic congestive heart failure. Last echo completed December 2016. EF between 50 and 55%. 7. History of CAD. Patient underwent cardiac catheterization in August 2017, conclusion normal coronary artery angiogram, normal left ventricle end-diastolic pressure. 8. History of myasthenia gravis. Maintained on pyridostigmine. Follows with neurology outpatient. 9. History of diabetes mellitus type 2. Last hemoglobin A1c of 7.9 (from 10/26/18). Resume home insulin. Add sliding scale coverage. Educated about the importance of a low carb diet. 10. Hypertension essential. Resume home medications with parameters. 11. History of nonalcoholic liver cirrhosis 12. Chronic pain syndrome with morphine pump. Patient follows with Dr. Jernigan 13. History of obstructive sleep apnea. Unable to tolerate home CPAP, patient wears 2 L O2 as needed at home 14. History of seizure disorder. Maintain on Lamictal. Last seizure 2018 per patient. 15. History of GERD with reflux. Maintained on Pepcid and Protonix 16. History of former smoker 17. thrombocytopenia likely secondary to history of liver cirrhosis. 18. Patient is complaining of uncontrolled pain in his upper back lower back and bilateral lower extremities at this time will add [place], patient should return to his pain specialist as outpatient for adjustment of his pain pump or further management of his chronic pain. 19. Acute kidney injury. Creatinine elevated at 1.37 we'll continue to monitor at this time. Creatinine down trending 1.23 20. Diarrhea. Patient has had loose stools for 2 days. Patient mentions having chronic diarrhea at home and maintains on Imodium. He completed a colonoscopy 2 weeks ago at the [facility] in [place]. Awaiting C. diff collection, patient only had 1 bowel movement overnight with blood present. Continue Imodium as needed. Probiotic ordered per GI. Stool for C. diff has been ordered. Per lab unable to test due to formation of stool 21. Hyponatremia. Sodium 127. We'll hold Aldactone and Lasix today and repeat labs tomorrow. Patient placed on fluid restriction. Nephrology services are following. Sodium improving to 129. Fluids currently locked per nephro. Sodium improving to 132 Lasix has been resumed for nephrology. Per nephrology fluid restriction increased to 1800 mls per day patient maintained on Lasix. Aldactone resumed 22. Lisbeth esophagitis. Patient started on Diflucan per GI services DVT prophylaxis SCDs due blood in stool and anemia. GI prophylaxis Pepcid Protonix
--- NOTE | 2019-05-25 16:08 | PN ---
PROGRESS NOTE DATE OF SERVICE: 05/25/2019 The patient is a 73-year-old male who is seen sitting up at the bedside, awake, alert, said that he felt great when he got up this morning, but after he took all of his morning pills started to feel like he was worsening. The patient is hemodynamically stable, afebrile, in no acute distress. PHYSICAL EXAM: VITAL SIGNS: Temp 98, heart rate 86, respiratory rate 16, blood pressure is 152/75, O2 saturation is 98% on room air HEENT. Head is normocephalic, atraumatic. Neck is supple. Trachea is midline. LUNGS; With coarse breath sounds. No clear rales or wheezes. HEART: S1, S2 heard. Not tachycardic. ABDOMEN: Soft. Bowel sounds are positive. EXTREMITIES: With 1+ edema bilaterally. NEUROLOGIC: Patient is awake and alert. LABS: White count is 9.2, hemoglobin is 8.9, hematocrit 28.8 with 107,000 platelets. Sodium is 129, potassium is 4.7, chloride is 100, CO2 is 25, anion gap is 4, BUN is 38, creatinine is 1.07, glucose is 188, calcium is 9.1, magnesium is 2.3, total bilirubin is 1.0, AST 47, ALT 64, alkaline phosphatase 84, total protein 5.7, albumin is 3.4. No new imaging to review. IMPRESSION: 1. Chronic obstructive pulmonary disease with asthma with acute exacerbation. 2. Lung fibrosis. 3. Myasthenia gravis. 4. Anemia. 5. Hyponatremia. PLAN: Continue current medications which have been reviewed. Continue bronchodilators. Continue GI and DVT prophylaxis. Continue GI and Nephrology recommendations. Increase activity as tolerated. Encourage deep breathing and pulmonary hygiene and will follow patient closely with you making further changes as necessary. MMODL / IJN: [id number] / MTDD
[2019-05-25 17:04] LABS: Glucose,Whole Blood 238 mg/dL (75-99)
[2019-05-25 20:14] LABS: Glucose,Whole Blood 285 mg/dL (75-99)
[2019-05-25] MEDS: INSULIN DETEMIR (LEVEMIR) 100 UNIT/ML SYR SQ SCH (20:22)
[2019-05-25] MEDS: MONTELUKAST 10 MG TAB PO SCH (20:23)
[2019-05-25] MEDS: guaiFENesin 600 MG TABLET.ER PO PRN (20:23)
[2019-05-26] MEDS: DEXAMETHASONE SOD PHOSPHATE 4 MG/ML 1 ML VIAL IV SCH ×3 (00:03→21:07)
[2019-05-26] MEDS: PYRIDOSTIGMINE 60 MG TAB PO SCH ×7 (03:52→23:23)
[2019-05-26 06:56] LABS: Glucose,Whole Blood 158 mg/dL (75-99)
[2019-05-26] MEDS: FUROSEMIDE 10 MG/ML 4 ML VIAL IV SCH ×2 (08:18→21:07)
[2019-05-26] MEDS: INSULIN ASPART (NovoLOG) 100 UNIT/ML VIAL SQ SCH ×7 (08:19→21:07)
[2019-05-26] MEDS: CYANOCOBALAMIN 500 MCG TAB PO SCH (08:20)
[2019-05-26] MEDS: CHOLECALCIFEROL 1,000 UNIT TAB PO SCH (08:20)
[2019-05-26] MEDS: FLUCONAZOLE 100 MG TAB PO SCH (08:21)
[2019-05-26] MEDS: FERROUS SULFATE 325 MG TAB PO SCH ×2 (08:21→21:06)
[2019-05-26] MEDS: ISOSORBIDE MONONITRATE ER 30 MG TAB.ER.24H PO SCH (08:21)
[2019-05-26] MEDS: FAMOTIDINE 20 MG TAB PO SCH ×2 (08:21→21:06)
[2019-05-26] MEDS: FINASTERIDE 5 MG TAB PO SCH (08:21)
[2019-05-26] MEDS: LACTOBACILLUS ACIDOPH & BULGAR 1 EACH PACKET PO SCH ×2 (08:22→21:06)
[2019-05-26] MEDS: LOSARTAN 50 MG TAB PO SCH (08:22)
[2019-05-26] MEDS: predniSONE 20 MG TAB PO SCH (08:22)
[2019-05-26] MEDS: lamoTRIgine 100 MG TAB PO SCH ×2 (08:22→21:07)
[2019-05-26] MEDS: MAGNESIUM OXIDE 400 MG TAB PO SCH (08:22)
[2019-05-26] MEDS: PANTOPRAZOLE 40 MG TABLET PO SCH (08:23)
[2019-05-26] MEDS: SPIRONOLACTONE 25 MG TAB PO SCH ×2 (08:23→21:06)
[2019-05-26] MEDS: MULTIVITAMINS, THERA 1 EACH TAB PO SCH (08:23)
[2019-05-26 08:49] LABS: Anisocytosis Slight; Basophils # (A) 0.1 k/uL (0-0.2); Basophils % (A) 1 %; Eosinophils % (A) 0 %; HCT 32.4 % (39.0-53.0); HGB 9.7 gm/dL (13.0-17.5); Hypochromasia Marked; Lymphocytes # (A) 0.4 k/uL (1.0-4.8); Lymphocytes % (A) 3 %; MCH 23.1 pg (25.0-35.0); MCHC 29.9 g/dL (31.0-37.0); MCV 77.3 fL (80.0-100.0); Mean Platelet Volume 6.5; Microcytosis Slight; Monocytes # (A) 0.6 k/uL (0-1.0); Monocytes % (A) 4 %; Neutrophils # (A) 14.3 k/uL (1.3-7.7); Neutrophils % (A) 92 %; Platelet Count 130 k/uL (150-450); RBC 4.19 m/uL (4.30-5.90); RDW 18.1 % (11.5-15.5); WBC 15.5 k/uL (3.8-10.6)
[2019-05-26] MEDS: SODIUM FERRIC GLUCONAT-SUCROSE 125 MG in SODIUM CHLORIDE 0.9% 100 ML IVPB SCH (08:58)
[2019-05-26] MEDS: HYDROCORTISONE 1% CREAM 454 GM JAR TOPICAL SCH ×2 (08:59→21:08)
[2019-05-26] MEDS: HYDROCORTISONE 2.5% RECTAL CREAM 30 GM TUBE RECTAL SCH ×2 (08:59→21:08)
[2019-05-26] MEDS: Lamivudine [Lamivudine] 300 MG PO SCH (08:59)
[2019-05-26 09:14] LABS: Albumin 3.8 g/dL (3.5-5.0); Calcium 9.3 mg/dL (8.4-10.2); Magnesium 2.3 mg/dL (1.6-2.3); Potassium 4.2 mmol/L (3.5-5.1); Total Bilirubin 1.1 mg/dL (0.2-1.3); Total Protein 6.3 g/dL (6.3-8.2)
--- NOTE | 2019-05-26 09:36 | P.PN ---
Subjective Patient is seen in follow-up for acute kidney injury. Renal function is fairly stable. Creatinine 1.2 today. Sodium level is 129 today. Oral intake is little better. Denies vomiting or diarrhea. He has been voiding. Hemodynamically stable. Vital signs are stable. General: The patient appeared well nourished and normally developed. HEENT: Head exam is unremarkable. Neck is without jugular venous distension. LUNGS: Lungs are clear to auscultation and percussion. Breath sounds decreased. HEART: Rate and Rhythm are regular. First and second heart sounds normal. No murmurs, rubs or gallops. ABDOMEN: Abdominal exam reveals normal bowel sounds. Non-tender and non- distended. No evidence of peritonitis. EXTREMITITES: 1+ edema. Objective - Vital Signs Vital signs: Vital Signs Temp 98.1 F 05/26/19 05:00 Pulse 95 05/26/19 05:00 Resp 17 05/26/19 05:00 BP 118/66 05/26/19 05:00 Pulse Ox 97 05/26/19 05:00 Intake & Output 05/25/19 05/26/19 05/26/19 18:59 06:59 18:59 Intake Total 1160 360 Output Total 400 Balance 760 360 Weight 116.2 kg Intake: Oral 1160 360 Output: Urine 400 Other: Voiding Method Toilet Toilet Urinal Urinal # Voids 900 2 - Labs CBC & Chem 7: 05/26/19 08:20 05/26/19 08:20 Labs: Abnormal Lab Results - Last 24 Hours (Table) 05/25/19 05/25/19 05/25/19 Range/Units 11:28 17:03 20:13 WBC (3.8-10.6) k/uL RBC (4.30-5.90) m/uL Hgb (13.0-17.5) gm/dL Hct (39.0-53.0) % MCV (80.0-100.0) fL MCH (25.0-35.0) pg MCHC (31.0-37.0) g/dL RDW (11.5-15.5) % Plt Count (150-450) k/uL Neutrophils # (1.3-7.7) k/uL Lymphocytes # (1.0-4.8) k/uL Sodium (137-145) mmol/L Chloride (98-107) mmol/L BUN (9-20) mg/dL Glucose (74-99) mg/dL POC Glucose (mg/dL) 423 H 238 H 285 H (75-99) mg/dL 05/26/19 05/26/19 05/26/19 Range/Units 06:55 08:20 08:20 WBC 15.5 H (3.8-10.6) k/uL RBC 4.19 L (4.30-5.90) m/uL Hgb 9.7 L (13.0-17.5) gm/dL Hct 32.4 L (39.0-53.0) % MCV 77.3 L (80.0-100.0) fL MCH 23.1 L (25.0-35.0) pg MCHC 29.9 L (31.0-37.0) g/dL RDW 18.1 H (11.5-15.5) % Plt Count 130 L (150-450) k/uL Neutrophils # 14.3 H (1.3-7.7) k/uL Lymphocytes # 0.4 L (1.0-4.8) k/uL Sodium 129 L (137-145) mmol/L Chloride 97 L (98-107) mmol/L BUN 38 H (9-20) mg/dL Glucose 140 H (74-99) mg/dL POC Glucose (mg/dL) 158 H (75-99) mg/dL Assessment and Plan Plan: Assessment: 1. Acute kidney injury mostly prerenal secondary to intravascular volume dep letion secondary to diuresis and diarrhea. Creatinine fairly stable at 1.2 today. No proteinuria on UA from March 2019. 2. Hypervolemic hyponatremia. 3. Acute blood loss anemia status post blood transfusion this admission. Patient had recent colonoscopy done at the [facility]. EGD done this admission revealed large distal esophageal varices and small gastric fundal varices. Severe iron deficiency noted. status post 3 doses of IV iron. 4. Chronic hepatitis B with liver cirrhosis. GI following. 5. Benign hypertension. Controlled. 6. Insulin-dependent diabetes mellitus. 7. Acute tracheobronchitis maintain on antibiotics. Infectious disease following. 8. Lower extremity edema. Plan: Maintain fluid restriction of 2 L per day. Encouraged solute intake, particularly protein. Maintain IV Lasix 40 mg twice daily. Maintain Aldactone 25 mg twice daily. Encourage oral intake. Avoid nephrotoxins. Hold Cozaar if systolic blood pressure less than 120.
[2019-05-26] MEDS ORDERED: TOLVAPTAN 15 MG 1/2 TABLET PO ONE (10:30)
[2019-05-26 11:33] LABS: Glucose,Whole Blood 231 mg/dL (75-99)
--- NOTE | 2019-05-26 12:43 | PN ---
PROGRESS NOTE DATE OF SERVICE: 05/26/2019 The patient is a 73-year-old male who is seen sitting up at the bedside. He is awake, alert. Denies any worsening pain. Denies any shortness of breath. He is hemodynamically stable, afebrile, in no acute distress. PHYSICAL EXAM: VITAL SIGNS: Temp 98.1, heart rate 95, respiratory rate 17, blood pressure is 118/66, O2 sats 97% on 2 L O2 via nasal cannula. HEENT: Head is normocephalic, atraumatic. Neck is supple. Trachea is midline. LUNGS: With fair air entry bilaterally, coarse to the mid left lung posteriorly. HEART: S1, S2 heard. Not tachycardic. ABDOMEN: Soft. Bowel sounds are heard. EXTREMITIES: With 1+ edema bilaterally. NEUROLOGIC: Patient is awake, alert, oriented. LABS: White count is 15.5, hemoglobin is 9.7, hematocrit 32.4 with 130,000 platelets. Sodium is 129, potassium is 4.2, chloride is 97, CO2 is 27, anion gap is 5, BUN is 38, creatinine is 1.2, glucose is 140, calcium is 9.3, magnesium is 2.3, total bilirubin 1.1, AST 47, ALT 71, alkaline phosphatase 104, total protein 6.3, albumin is 3.8. No new imaging to review. IMPRESSION: 1. Chronic obstructive pulmonary disease with asthma with acute exacerbation. 2. Lung fibrosis. 3. Myasthenia gravis. 4. Anemia. 5. Hyponatremia. PLAN: Will decrease IV Decadron to 4 mg q.12 hours. Continue bronchodilators and aerosol steroids. Continue GI and DVT prophylaxis. Encourage deep breathing and pulmonary hygiene and we will follow patient closely with you making further changes as necessary. MMODL / IJN: [id number] /
--- NOTE | 2019-05-26 13:35 | P.PN ---
Subjective Progress Note Date: 05/26/19 This is a 73-year-old male patient of Dr. Osorio who presents with worsening shortness of breath over the last couple days. He does mention that he noticed symptoms weeks ago but the last few days have been especially worse. Patient states that the shortness breath is exacerbated by exertion, he has some relief at rest. Patient has had a productive cough, with thick, yellow sputum. He states that he used [id number] cough suppressant which did give him some relief. Today he is sitting up in chair, in no acute distress. He is wearing 2 L of oxygen and states that he wears this at home as needed. He reports having chills at home and states that he has to wear several blankets at night. He also thinks he might have had a low-grade temp but has been afebrile since admission. He denies any chest pain, palpitations. He denies any nausea, vomiting, diarrhea. He denies any urinary frequency or burning. Past medical history includes: Myasthenia gravis, interstitial lung disease, CVA/TIA, diabetes mellitus, liver cirrhosis, myocardial infarction, hypothyroidism, obstructive sleep apnea, GERD with reflux, hearing disorder/deafness, hypertension hyperlipidemia, seizure disorder. On 05/11/2019 patient was seen and examined on the medical floor he is alert and oriented 3 in no apparent distress he is complaining of pain in his upper back, lower back, and both legs. He has a pain pump implanted however he states that his pain is not well controlled he is also still complaining of cough and shortness of breath especially with activity otherwise he denies any complaints there is no fever or chills no headache or dizziness no chest pain no nausea or vomiting no abdominal pain no diarrhea no burning was urination no frequency or urgency no hematuria.. On 05/12/2019 patient was seen and examined on the medical floor he is complaining of rectal bleeding that he relates to hemorrhoids he is complaining of back pain and he is still complaining of cough and shortness of breath and wheezing. Otherwise he denies any complaints there is no fever or chills no headache or dizziness no chest pain nausea or vomiting no abdominal pain no diarrhea no burning was urination no frequency or urgency no hematuria. On 05/13/2019 patient is feeling slightly improved today. Patient still complaining of some shortness of breath and cough. Patient maintained on Mucinex. Patient is alert and oriented 3. Stool for occult blood has been ordered. Patient having cough with positive sputum production. Patient denies chest pain. Patient denies nausea vomiting or diarrhea. Patient denies any urinary burning or frequency 05/14/2019 patient is still having some shortness of breath with sputum production. Patient reports that he is having some blood in stool likely from h emorrhoids. Patient reports he had colonoscopy approximately 3 weeks ago at [facility]. Stool for occult blood have been ordered. Patient remains on antibiotics per ID and pulmonary services following. Patient denies chest pain. Patient denies any nausea or vomiting. Patient denies any urinary burning or frequency On 05/15/2019 patient is sitting up at site of bed reporting that his shortness of breath has not improved. Antibiotics maintained. Mucinex as needed. He is still complaining of loose stools this morning with irritation secondary to hemorrhoids. Will continue Imodium. Hydrocortisone topical added for local treatment per GI. No plans for endoscopic evaluation. Patient denies chest pain. Patient denies any nausea or vomiting patient denies any urinary frequency. On 05/16/2019 Patient is up moving around the room. Reports feeling worse today. Patient shortness of breath has not improved and is complaining of lower back pain. Creatinine 1.23 from 1.20. Antibiotics maintained. Per Dr. Walker, patient will receive Decadron 3 doses. Overnight he had one episode of bleeding with bowel movement. Hemoglobin stable. Continue topical management for hemorrhoids. Patient denies chest pain. Patient denies any nausea vomiting or urinary burning or frequency. On 05/17/2019 patient alert and oriented 3. Patient's lung sounds sound slightly improved compared to yesterday. Patient remains on Decadron. Patient's sodium also at 128. Patient placed on fluid restriction due to this issue. Hemoglobin remained stable. Blood sugars elevated due to Decadron and noncompliance with diabetic diet. Patient denies chest pain. Patient is complaining of lower back pain that is chronic for him. Patient does have morphine pain pump along with [place] for breakthrough pain. On 05/18/2019 patient was seen and examined on the medical floor he is complaining of low water intake however his sodium level is down to 127 he has been off diuretics at this time will restart IV fluid normal saline at 50 mL an hour. Patient also is complaining of diarrhea and blood in the stool, we are still awaiting stool sample for C. diff. He is still complaining of cough shortness of breath and wheezing Otherwise he denies any complaints there is no fever or chills no headache or dizziness no chest pain no nausea or vomiting no abdominal pain no burning was urination no frequency or urgency and no hematuria On 05/19/2019 patient is still complaining of diarrhea he is complaining of blood in his stools. He is still complaining of cough and shortness of breath, otherwise he denies any complaints there is no fever or chills no headache or dizziness no chest pain no nausea or vomiting no abdominal pain, no burning with urination no frequency or urgency and no hematuria. On 05/20/2019 patient is alert and oriented 3. Patient is still having some diarrhea with bleeding from hemorrhoids. Hemoglobin improving to 8.2. GI services following. Patient is still short of breath with activity patient remains on Decadron. Sodium improving to 129. Nephrology services following. Patient denies chest pain. Patient denies nausea or vomiting. Patient denies any urinary burning frequency. C. diff sample has been ordered. Discussed with nursing staff On 05/21/2019 patient's alert and oriented 3. Patient reports some improvement with shortness of breath. Per nursing staff C. diff sample was attempted to be sent up her lab unable to test due to stool being formed. Patient will undergo EGD today per GI services sodium improving to 132. Lasix has been resumed per nephrology. Patient denies chest pain. Patient denies nausea or vomiting. Patient denies any urinary burning or frequency On 05/22/2019 patient's alert and oriented 3. Patient underwent EGD. H emoglobin 8.3. Sodium remained stable at 132. Decadron has been DC'd per pulmonary. Patient remains on prednisone and Levaquin. Patient denies chest pain. Patient denies nausea vomiting or diarrhea. Patient denies any urinary burning or frequency. On 05/23/2019 patient's alert and oriented 3. Patient reports some improvement. Hemoglobin 8.7. Patient currently on Diflucan for Lisbeth eso phagitis. Patient has been started back on Decadron per pulmonary. Lasix increased per nephrology. Patient denies chest pain. Patient denies nausea vomiting or diarrhea. Patient denies any urinary burning and frequency On 05/24/2019 patient's alert and oriented 3. Patient showing some improvement his breathing. Hemoglobin 9.2. 3 days of IV iron has been ordered per nephrology services sodium 130. This time patient denies chest pain. Denies nausea vomiting or diarrhea. Denies any urinary burning or frequency. On 05/25/2019 patient was seen and examined on the medical floor he is alert and oriented 3 in no apparent distress he is still complaining of blood in the stools and complaining of shortness of breath especially was activity he has occasional cough with white to yellow sputum production otherwise he denies any complaints there is no fever or chills no headache or dizziness no chest pain no nausea or vomiting no abdominal pain no diarrhea no burning with urination no frequency or urgency and no hematuria sodium is down again to 129 patient was counseled in length in regards to fluid restriction On 05/26/2019 patient was seen and examined on the medical floor he is still complaining of cough with yellow sputum production he is also complaining of small amount of blood in his stools otherwise he denies any complaints there is no fever or chills no headache or dizziness no chest pain no shortness of breath no cough no nausea or vomiting no abdominal pain no diarrhea no burning with urination no frequency or urgency and no hematuria Objective - Vital Signs Vital signs: Vital Signs Temp 97.9 F 05/26/19 12:05 Pulse 94 05/26/19 12:05 Resp 18 05/26/19 12:05 BP 113/52 05/26/19 12:05 Pulse Ox 98 05/26/19 12:05 Intake & Output 05/25/19 05/26/19 05/26/19 18:59 06:59 18:59 Intake Total 1160 360 Output Total 400 Balance 760 360 Weight 116.2 kg Intake: Oral 1160 360 Output: Urine 400 Other: Voiding Method Toilet Toilet Toilet Urinal Urinal Urinal # Voids 900 2 - Exam In general patient is alert and oriented 3 in no apparent distress HEENT head normocephalic and atraumatic Neck is supple no JVD no goiter no lymphadenopathy Chest exam reveals a few scattered crackles no wheezing Cardiac exam reveals regular heart sounds no gallops no murmurs Abdomen is soft nontender no organomegaly with normal bowel sounds Extremity exam reveals 2+ edema with mild erythema and warmth in the pretibial areas Neurological examination reveals no gross focal deficit - Labs CBC & Chem 7: 11/24/19 08:20 05/26/19 08:20 Labs: Abnormal Lab Results - Last 24 Hours (Table) 05/25/19 05/25/19 05/26/19 Range/Units 17:03 20:13 06:55 WBC (3.8-10.6) k/uL RBC (4.30-5.90) m/uL Hgb (13.0-17.5) gm/dL Hct (39.0-53.0) % MCV (80.0-100.0) fL MCH (25.0-35.0) pg MCHC (31.0-37.0) g/dL RDW (11.5-15.5) % Plt Count (150-450) k/uL Neutrophils # (1.3-7.7) k/uL Lymphocytes # (1.0-4.8) k/uL Sodium (137-145) mmol/L Chloride (98-107) mmol/L BUN (9-20) mg/dL Glucose (74-99) mg/dL POC Glucose (mg/dL) 238 H 285 H 158 H (75-99) mg/dL 05/26/19 05/26/19 05/26/19 Range/Units 08:20 08:20 11:31 WBC 15.5 H (3.8-10.6) k/uL RBC 4.19 L (4.30-5.90) m/uL Hgb 9.7 L (13.0-17.5) gm/dL Hct 32.4 L (39.0-53.0) % MCV 77.3 L (80.0-100.0) fL MCH 23.1 L (25.0-35.0) pg MCHC 29.9 L (31.0-37.0) g/dL RDW 18.1 H (11.5-15.5) % Plt Count 130 L (150-450) k/uL Neutrophils # 14.3 H (1.3-7.7) k/uL Lymphocytes # 0.4 L (1.0-4.8) k/uL Sodium 129 L (137-145) mmol/L Chloride 97 L (98-107) mmol/L BUN 38 H (9-20) mg/dL Glucose 140 H (74-99) mg/dL POC Glucose (mg/dL) 231 H (75-99) mg/dL Assessment and Plan Plan: 1. Dyspnea related to acute exacerbation of interstitial lung disease and acute tracheobronchitis. Pulmonary service was consulted. Patient is on prednisone due to ALLERGY to Solu-Medrol. Chest x-ray obtained in ER, impression is moderate pulmonary interstitial fibrosis is unchanged. Per Pulmonary patient maintained on Decadron. 2. Acute tracheobronchitis. Levaquin continued. Sputum sample negative. Mucinex added. 3. Bilateral lower extremity cellulitis. Consulted ID services. Clindamycin discontinued per ID. 4. History of interstitial lung disease/pulmonary fibrosis history of chronic hypoxemic respiratory failure. Patient is maintained on home O2 5. Iron deficiency anemia with blood in stool noted per patient. Patient has required IV iron transfusions in the past. Patient is having rectal bleeding at this time, which is mild and he relates it to hemorrhoids. Patient had a colonoscopy 2 weeks ago at the [facility] in [place] will try to obtain records. Per GI services, Hydrocortisone topical therapy for local hemorrhoid. Will start patient on ferrous sulfate given low iron studies. 1 unit of PRBCs given. Per GI services awaiting records of colonoscopy from [facility] possible repeat colonoscopy and EGD. Status post EGD showing small gastric fundal varices with no active bleeding large distal esophageal varices and portal hypertensive gastric Lisbeth esophagitis. Per GI services continue [id number] mg daily. 2 days of IV iron has been ordered per nephrology 6. History of chronic diastolic congestive heart failure. Last echo completed December 2016. EF between 50 and 55%. 7. History of CAD. Patient underwent cardiac catheterization in August 2017, conclusion normal coronary artery angiogram, normal left ventricle end-diastolic pressure. 8. History of myasthenia gravis. Maintained on pyridostigmine. Follows with [facility] outpatient. 9. History of diabetes mellitus type 2. Last hemoglobin A1c of 7.9 (from 10/02 12/19). Resume home insulin. Add sliding scale coverage. Educated about the importance of a low carb diet. 10. Hypertension essential. Resume home medications with parameters. 11. History of nonalcoholic liver cirrhosis 12. Chronic pain syndrome with morphine pump. Patient follows with Dr. Jernigan 13. History of obstructive sleep apnea. Unable to tolerate home CPAP, patient wears 2 L O2 as needed at home 14. History of seizure disorder. Maintain on Lamictal. Last seizure 2018 per patient. 15. History of GERD with reflux. Maintained on Pepcid and Protonix 16. History of former smoker 17. thrombocytopenia likely secondary to history of liver cirrhosis. 18. Patient is complaining of uncontrolled pain in his upper back lower back and bilateral lower extremities at this time will add [place], patient should return to his pain specialist as outpatient for adjustment of his pain pump or further management of his chronic pain. 19. Acute kidney injury. Creatinine elevated at 1.37 we'll continue to monitor at this time. Creatinine down trending 1.23 20. Diarrhea. Patient has had loose stools for 2 days. Patient mentions having chronic diarrhea at home and maintains on Imodium. He completed a colonoscopy 2 weeks ago at the [facility] in [place]. Awaiting C. diff collection, patient only had 1 bowel movement overnight with blood present. Continue Imodium as needed. Probiotic ordered per GI. Stool for C. diff has been ordered. Per lab unable to test due to formation of stool 21. Hyponatremia. Sodium 127. We'll hold Aldactone and Lasix today and repeat labs tomorrow. Patient placed on fluid restriction. Nephrology services are following. Sodium improving to 129. Fluids currently locked per nephro. Sodium improving to 132 Lasix has been resumed for nephrology. Per nephrology fluid restriction increased to 1800 mls per day patient maintained on Lasix. Aldactone resumed 22. Lisbeth esophagitis. Patient started on Diflucan per GI services DVT prophylaxis SCDs due blood in stool and anemia. GI prophylaxis Pepcid Protonix Patient is improving gradually possible discharge to home in the next 1-2 days
[2019-05-26 17:18] LABS: Glucose,Whole Blood 307 mg/dL (75-99)
[2019-05-26 20:31] LABS: Glucose,Whole Blood 184 mg/dL (75-99)
[2019-05-26] MEDS: MONTELUKAST 10 MG TAB PO SCH (21:06)
[2019-05-26] MEDS: HYDROcodone/APAP 7.5-325MG 1 EACH TAB PO PRN (21:06)
[2019-05-26] MEDS: guaiFENesin 600 MG TABLET.ER PO PRN (21:06)
[2019-05-26] MEDS: INSULIN DETEMIR (LEVEMIR) 100 UNIT/ML SYR SQ SCH (21:21)
[2019-05-26 21:56] VITALS: RESP 16
[2019-05-26] MEDS ORDERED: CALCIUM CARBONATE 500 MG CHEWABLE PO PRN (22:49)
[2019-05-26] MEDS: CALCIUM CARBONATE 500 MG CHEWABLE PO PRN (23:23)
[2019-05-27] MEDS: PYRIDOSTIGMINE 60 MG TAB PO SCH ×4 (03:20→15:40)
[2019-05-27] MEDS: CALCIUM CARBONATE 500 MG CHEWABLE PO PRN (06:19)
[2019-05-27 07:20] LABS: Glucose,Whole Blood 161 mg/dL (75-99)
[2019-05-27] MEDS: ISOSORBIDE MONONITRATE ER 30 MG TAB.ER.24H PO SCH (07:47)
[2019-05-27] MEDS: LOSARTAN 50 MG TAB PO SCH (07:48)
[2019-05-27] MEDS: CHOLECALCIFEROL 1,000 UNIT TAB PO SCH (07:48)
[2019-05-27] MEDS: CYANOCOBALAMIN 500 MCG TAB PO SCH (07:48)
[2019-05-27] MEDS: FLUCONAZOLE 100 MG TAB PO SCH (07:48)
[2019-05-27] MEDS: guaiFENesin 600 MG TABLET.ER PO PRN (07:48)
[2019-05-27] MEDS: PANTOPRAZOLE 40 MG TABLET PO SCH (07:48)
[2019-05-27] MEDS: predniSONE 20 MG TAB PO SCH (07:49)
[2019-05-27] MEDS: FAMOTIDINE 20 MG TAB PO SCH (07:49)
[2019-05-27] MEDS: FERROUS SULFATE 325 MG TAB PO SCH (07:49)
[2019-05-27] MEDS: MAGNESIUM OXIDE 400 MG TAB PO SCH (07:49)
[2019-05-27] MEDS: HYDROcodone/APAP 7.5-325MG 1 EACH TAB PO PRN (07:49)
[2019-05-27] MEDS: MULTIVITAMINS, THERA 1 EACH TAB PO SCH (07:50)
[2019-05-27] MEDS: SPIRONOLACTONE 25 MG TAB PO SCH (07:50)
[2019-05-27] MEDS: INSULIN ASPART (NovoLOG) 100 UNIT/ML VIAL SQ SCH ×4 (07:51→12:07)
[2019-05-27] MEDS: FINASTERIDE 5 MG TAB PO SCH (07:52)
[2019-05-27] MEDS: LACTOBACILLUS ACIDOPH & BULGAR 1 EACH PACKET PO SCH (07:52)
[2019-05-27] MEDS: lamoTRIgine 100 MG TAB PO SCH (07:52)
[2019-05-27] MEDS: Lamivudine [Lamivudine] 300 MG PO SCH (07:53)
[2019-05-27] MEDS: HYDROCORTISONE 2.5% RECTAL CREAM 30 GM TUBE RECTAL SCH (07:54)
[2019-05-27] MEDS: HYDROCORTISONE 1% CREAM 454 GM JAR TOPICAL SCH (09:11)
[2019-05-27 09:31] LABS: Anisocytosis Slight; Basophils # (A) 0.1 k/uL (0-0.2); Basophils % (A) 0 %; Eosinophils % (A) 0 %; HGB 9.6 gm/dL (13.0-17.5); Hypochromasia Marked; Lymphocytes # (A) 0.6 k/uL (1.0-4.8); Lymphocytes % (A) 3 %; MCH 24.4 pg (25.0-35.0); MCHC 31.1 g/dL (31.0-37.0); MCV 78.3 fL (80.0-100.0); Microcytosis Slight; Monocytes # (A) 0.6 k/uL (0-1.0); Monocytes % (A) 3 %; Neutrophils # (A) 17.9 k/uL (1.3-7.7); Neutrophils % (A) 93 %; Platelet Count 144 k/uL (150-450); RBC 3.96 m/uL (4.30-5.90); RDW 18.4 % (11.5-15.5); WBC 19.3 k/uL (3.8-10.6)
[2019-05-27 09:46] LABS: Albumin 3.7 g/dL (3.5-5.0); Calcium 9.6 mg/dL (8.4-10.2); Magnesium 2.4 mg/dL (1.6-2.3); Potassium 4.4 mmol/L (3.5-5.1); Total Bilirubin 1.2 mg/dL (0.2-1.3)
[2019-05-27 10:34] LABS: Hypersegmented Neutrophils Present; Poikilocytosis (M) Present
[2019-05-27 10:35] LABS: Toxic Granulation Present
[2019-05-27 11:26] LABS: Glucose,Whole Blood 396 mg/dL (75-99)
[2019-05-27] MEDS: DEXAMETHASONE SOD PHOSPHATE 4 MG/ML 1 ML VIAL IV SCH (11:36)
[2019-05-27] MEDS: FUROSEMIDE 10 MG/ML 4 ML VIAL IV SCH (11:36)
--- NOTE | 2019-05-27 12:12 | P.PN ---
Subjective Patient is seen in follow-up for acute kidney injury. Renal function is fairly stable. Creatinine 1.27 today. Sodium level is 132 today. Oral intake is gradually improving. Denies vomiting or diarrhea. He has been voiding. Weight is trending down. Edema better. Hemodynamically stable. Vital signs are stable. General: The patient appeared well nourished and normally developed. HEENT: Head exam is unremarkable. Neck is without jugular venous distension. LUNGS: Lungs are clear to auscultation and percussion. Breath sounds decreased. HEART: Rate and Rhythm are regular. First and second heart sounds normal. No murmurs, rubs or gallops. ABDOMEN: Abdominal exam reveals normal bowel sounds. Non-tender and non- distended. No evidence of peritonitis. EXTREMITITES: 1+ edema. Objective - Vital Signs Vital signs: Vital Signs Temp 96.0 F L 05/27/19 05:00 Pulse 94 05/27/19 11:54 Resp 16 05/27/19 05:00 BP 132/60 05/27/19 05:00 Pulse Ox 100 05/27/19 11:54 Intake & Output 05/26/19 05/27/19 05/27/19 18:59 06:59 18:59 Intake Total 360 336 Output Total 1200 Balance -840 336 Weight 114.447 kg Intake: Oral 360 336 Output: Urine 1200 Other: Voiding Method Toilet Toilet Toilet Urinal Urinal Urinal # Voids 2 3 # Bowel Movements 1 - Labs CBC & Chem 7: 05/27/19 08:07 05/27/19 08:07 Labs: Abnormal Lab Results - Last 24 Hours (Table) 05/26/19 05/26/19 05/27/19 Range/Units 17:17 20:29 07:20 WBC (3.8-10.6) k/uL RBC (4.30-5.90) m/uL Hgb (13.0-17.5) gm/dL Hct (39.0-53.0) % MCV (80.0-100.0) fL MCH (25.0-35.0) pg RDW (11.5-15.5) % Plt Count (150-450) k/uL Neutrophils # (1.3-7.7) k/uL Lymphocytes # (1.0-4.8) k/uL Sodium (137-145) mmol/L BUN (9-20) mg/dL Creatinine (0.66-1.25) mg/dL Glucose (74-99) mg/dL POC Glucose (mg/dL) 307 H 184 H 161 H (75-99) mg/dL Magnesium (1.6-2.3) mg/dL ALT (21-72) U/L Total Protein (6.3-8.2) g/dL 05/27/19 05/27/19 05/27/19 Range/Units 08:07 08:07 11:25 WBC 19.3 H (3.8-10.6) k/uL RBC 3.96 L (4.30-5.90) m/uL Hgb 9.6 L (13.0-17.5) gm/dL Hct 31.0 L (39.0-53.0) % MCV 78.3 L (80.0-100.0) fL MCH 24.4 L (25.0-35.0) pg RDW 18.4 H (11.5-15.5) % Plt Count 144 L (150-450) k/uL Neutrophils # 17.9 H (1.3-7.7) k/uL Lymphocytes # 0.6 L (1.0-4.8) k/uL Sodium 132 L (137-145) mmol/L BUN 45 H (9-20) mg/dL Creatinine 1.27 H (0.66-1.25) mg/dL Glucose 111 H (74-99) mg/dL POC Glucose (mg/dL) 396 H (75-99) mg/dL Magnesium 2.4 H (1.6-2.3) mg/dL ALT 76 H (21-72) U/L Total Protein 6.0 L (6.3-8.2) g/dL Assessment and Plan Plan: Assessment: 1. Acute kidney injury mostly prerenal secondary to cardiorenal syndrome. Creatinine fairly stable at 1.27 today. No proteinuria on UA from March 2019. 2. Hypervolemic hyponatremia. Better. 3. Acute blood loss anemia status post blood transfusion this admission. Patient had recent colonoscopy done at the [facility]. EGD done this admission revealed large distal esophageal varices and small gastric fundal varices. Severe iron deficiency noted. Status post 3 doses of IV iron. 4. Chronic hepatitis B with liver cirrhosis. GI following. 5. Benign hypertension. Controlled. 6. Insulin-dependent diabetes mellitus. 7. Acute tracheobronchitis maintain on antibiotics. Infectious disease following. 8. Lower extremity edema. Plan: Maintain fluid restriction of 2 L per day. Encouraged solute intake, particularly protein. Maintain IV Lasix 40 mg twice daily - change to oral upon discharge. Maintain Aldactone 25 mg twice daily. Encourage oral intake. Avoid nephrotoxins. Hold Cozaar if systolic blood pressure less than 120. Stable to be discharged home from nephrology standpoint. I advised the patient to monitor his weight closely at home. He is to take an extra dose of Lasix if notices more than 2-3 pound weight gain or worsening of edema. Repeat BMP and magnesium level 2-3 days postdischarge. Follow up outpatient in the next 1-2 weeks.
[2019-05-27 12:42] VITALS: BP 133/61; PULSE 91; TEMP 97.8
--- NOTE | 2019-05-27 13:28 | CDI ---
Documentation Clarification Form Date: 05/27/2019 1:21:49 PM From: Genevieve ErazoFernandezJOYCELYN, CCDS Admit Date: 05/11/2019 5:13:00 PM Patient Name: Duke Sánchez Visit Number: [id number] Discharge Date: ATTENTION: The Clinical Documentation Specialists (CDI) and [facility] Coding Staff appreciate your assistance in clarifying documentation. Please respond to the clarification below the line at the bottom and electronically sign. The CDI & [facility] Coding staff will review the response and follow-up if needed. Please note: Queries are made part of the Legal Health Record. If you have any questions, please contact the author of this message via ITS. Dr. Venancio Sanchez: Per the 05/27 nephrology progress note: "Acute kidney injury mostly prerenal secondary to cardiorenal syndrome. Creatinine fairly stable at 1.27 today. No proteinuria on UA from March 2019." History/Risk Factors: Asthma, CAD, Chronic hypoxic respiratory failure, pulmonary fibrosis, chronic diastolic CHF, Hypertension, Myasthenia Gravis, DM II with neuropathy, Morbid obesity, TALIA & former smoker. Clinical Indicators: Presented 05/11 with worsening SOB, diagnosed with acute exacerbation of pulmonary fibrosis & acute exacerbation of asthma, nos; and acute respiratory failure. BUN: 24 - 33 - 51 - 41 - 35, currently 45 Creatinine: 0.97 - 1.37 - 1.39 - 0.93 - 1.04, currently 1.27 GFr: 78 - 83 - 58 - 50 - 81 - 69, currently 56 Patients Baseline BUN/CR/GFR: Unknown or not documented. Treatment: IVF In order to capture the severity of condition, please clarify if the condition signifies: CKD Stage 1 (GFR > 90) CKD Stage 2 (GFR 60-89) CKD Stage 3 (GFR 30-59) Other, please specify Unable to determine (Last Revision: October 2017) unable to determine at this time MTDD
--- NOTE | 2019-05-27 14:09 | P.DS ---
Providers Date of admission: 05/11/19 17:13 Expected date of discharge: 05/27/19 Attending physician: Josr Osorio Consults: 05/09/19 20:28 Consult Physician Urgent Consulting Provider: Frankie Basilio Consult Reason/Comments: Pulmonary fibrosis Do you want consulting provider notified?: Yes 05/10/19 10:06 Consult Physician Routine Consulting Provider: Emma Ron Consult Reason/Comments: bilateral celulitus with multiple allergies Do you want consulting provider notified?: Yes 05/18/19 12:53 Consult Physician Routine Consulting Provider: Fani Hines Consult Reason/Comments: hyponatremia, acute renal failure Do you want consulting provider notified?: Yes 05/19/19 09:28 Consult Physician Routine Consulting Provider: Yennifer Gayle Consult Reason/Comments: bloody stools Do you want consulting provider notified?: Already Contacted Primary care physician: Josr [facility] Course: Discharge diagnosis 1. Dyspnea related to acute exacerbation of interstitial lung disease and acute tracheobronchitis. Pulmonary service was consulted. Patient is on prednisone due to ALLERGY to Solu-Medrol. Chest x-ray obtained in ER, impression is moderate pulmonary interstitial fibrosis is unchanged. Per Pulmonary patient maintained on Decadron. Discussed case with Dr. Basilio per pulmonary services. Patient has been cleared for discharge per pulmonary will DC patient on Taper prednisone to 10 mg DC Decadron. After completion patient to resume home medication of prednisone 10 mg. 2. Acute tracheobronchitis. Levaquin continued. Sputum sample negative. Mucinex added. 3. Bilateral lower extremity cellulitis. Consulted ID services. Clindamycin discontinued per ID. no further antibiotics 4. History of interstitial lung disease/pulmonary fibrosis history of chronic hypoxemic respiratory failure. Patient is maintained on home O2 5. Iron deficiency anemia with blood in stool noted per patient. Patient has required IV iron transfusions in the past. Patient is having rectal bleeding at this time, which is mild and he relates it to hemorrhoids. Patient had a colonoscopy 2 weeks ago at the [facility] in [place] will try to obtain records. Per GI services, Hydrocortisone topical therapy for local hemorrhoid. Will start patient on ferrous sulfate given low iron studies. 1 unit of PRBCs given. Per GI services awaiting records of colonoscopy from [facility] possible repeat colonoscopy and EGD. Status post EGD showing small gastric fundal varices with no active bleeding large distal esophageal varices and portal hypertensive gastric Lisbeth esophagitis. Per GI services continue Conpthxc06 mg daily. 2 days of IV iron has been ordered per nephrology. Patient has been cleared for discharge from ALLERGY standpoint 6. History of chronic diastolic congestive heart failure. Last echo completed December 2016. EF between 50 and 55%. 7. History of CAD. Patient underwent cardiac catheterization in August 2017, conclusion normal coronary artery angiogram, normal left ventricle end-diastolic pressure. 8. History of myasthenia gravis. Maintained on pyridostigmine. Follows with neurology outpatient. 9. History of diabetes mellitus type 2. Last hemoglobin A1c of 7.9 (from 10/26/18). Resume home insulin. Add sliding scale coverage. Educated about the importance of a low carb diet. 10. Hypertension essential. Resume home medications with parameters. 11. History of nonalcoholic liver cirrhosis 12. Chronic pain syndrome with morphine pump. Patient follows with Dr. Jernigan 13. History of obstructive sleep apnea. Unable to tolerate home CPAP, patient wears 2 L O2 as needed at home 14. History of seizure disorder. Maintain on Lamictal. Last seizure 2018 per patient. 15. History of GERD with reflux. Maintained on Pepcid and Protonix 16. History of former smoker 17. thrombocytopenia likely secondary to history of liver cirrhosis. 18. Patient is complaining of uncontrolled pain in his upper back lower back and bilateral lower extremities at this time will add Jewett, patient should return to his pain specialist as outpatient for adjustment of his pain pump or further management of his chronic pain. 19. Acute kidney injury. Creatinine elevated at 1.37 we'll continue to monitor at this time. Creatinine down trending 1.23. Per nephrology patient has been cleared for discharge. Patient to be DC'd home on Lasix 80 mg twice daily maintain Aldactone at 25 mg daily. Patient instructed per nephrology to take extra dose of Lasix if he notices 2-3 pound weight gain or worsening edema. Repeat BMP mag in 2-3 days follow-up outpatient 1-2 weeks 20. Diarrhea. Patient has had loose stools for 2 days. Patient mentions having chronic diarrhea at home and maintains on Imodium. He completed a colonoscopy 2 weeks ago at the [facility] in [place]. Awaiting C. diff collection, patient only had 1 bowel movement overnight with blood present. Continue Imodium as needed. Probiotic ordered per GI. Stool for C. diff has been ordered. Per lab unable to test due to formation of stool 21. Hyponatremia. Sodium 127. We'll hold Aldactone and Lasix today and repeat labs tomorrow. Patient placed on fluid restriction. Nephrology services are following. Sodium improving to 129. Fluids currently locked per nephro. Sodium improving to 132 Lasix has been resumed for nephrology. Per nephrology fluid restriction increased to 1800 mls per day patient maintained on Lasix. Aldactone resumed. Patient to follow-up with nephrology services outpatient. 2 L fluid restriction recommended for home 22. Lisbeth esophagitis. Patient started on Diflucan per GI services. patient will be DC'd on 5 more days of Diflucan Hospital course This is a 73-year-old male patient of Dr. Osorio who presents with worsening shortness of breath over the last couple days. He does mention that he noticed symptoms weeks ago but the last few days have been especially worse. Patient states that the shortness breath is exacerbated by exertion, he has some relief at rest. Patient has had a productive cough, with thick, yellow sputum. He states that he used [id number] cough suppressant which did give him some relief. Today he is sitting up in chair, in no acute distress. He is wearing 2 L of oxygen and states that he wears this at home as needed. He reports having chills at home and states that he has to wear several blankets at night. He also thinks he might have had a low-grade temp but has been afebrile since admission. He denies any chest pain, palpitations. He denies any nausea, vomiting, diarrhea. He denies any urinary frequency or burning. Past medical history includes: Myasthenia gravis, interstitial lung disease, CVA/TIA, diabete s mellitus, liver cirrhosis, myocardial infarction, hypothyroidism, obstructive sleep apnea, GERD with reflux, hearing disorder/deafness, hypertension hyperlipidemia, seizure disorder. On 05/11/2019 patient was seen and examined on the medical floor he is alert and oriented 3 in no apparent distress he is complaining of pain in his upper back, lower back, and both legs. He has a pain pump implanted however he states that his pain is not well controlled he is also still complaining of cough and shortness of breath especially with activity otherwise he denies any complaints there is no fever or chills no headache or dizziness no chest pain no nausea or vomiting no abdominal pain no diarrhea no burning was urination no frequency or urgency no hematuria.. On 05/12/2019 patient was seen and examined on the medical floor he is complaining of rectal bleeding that he relates to hemorrhoids he is complaining of back pain and he is still complaining of cough and shortness of breath and wh eezing. Otherwise he denies any complaints there is no fever or chills no headache or dizziness no chest pain nausea or vomiting no abdominal pain no diarrhea no burning was urination no frequency or urgency no hematuria. On 05/13/2019 patient is feeling slightly improved today. Patient still complaining of some shortness of breath and cough. Patient maintained on Mucinex. Patient is alert and oriented 3. Stool for occult blood has been ordered. Patient having cough with positive sputum production. Patient denies chest pain. Patient denies nausea vomiting or diarrhea. Patient denies any urinary burning or frequency 05/14/2019 patient is still having some shortness of breath with sputum production. Patient reports that he is having some blood in stool likely from hemorrhoids. Patient reports he had colonoscopy approximately 3 weeks ago at [facility]. Stool for occult blood have been ordered. Patient remains on antibiotics per ID and pulmonary services following. Patient denies chest pain. Patient denies any nausea or vomiting. Patient denies any urinary burning or frequency On 05/15/2019 patient is sitting up at site of bed reporting that his shortness of breath has not improved. Antibiotics maintained. Mucinex as needed. He is still complaining of loose stools this morning with irritation secondary to hemorrhoids. Will continue Imodium. Hydrocortisone topical added for local treatment per GI. No plans for endoscopic evaluation. Patient denies chest pain. Patient denies any nausea or vomiting patient denies any urinary frequency. On 05/16/2019 Patient is up moving around the room. Reports feeling worse today. Patient shortness of breath has not improved and is complaining of lower back pain. Creatinine 1.23 from 1.20. Antibiotics maintained. Per Dr. Walker, patient will receive Decadron 3 doses. Overnight he had one episode of bleeding with bowel movement. Hemoglobin stable. Continue topical management for hemorrhoids. Patient denies chest pain. Patient denies any nausea vomiting or urinary burning or frequency. On 05/17/2019 patient alert and oriented 3. Patient's lung sounds sound slightly improved compared to yesterday. Patient remains on Decadron. Patient's sodium also at 128. Patient placed on fluid restriction due to this issue. Hemoglobin remained stable. Blood sugars elevated due to Decadron and noncompliance with diabetic diet. Patient denies chest pain. Patient is complaining of lower back pain that is chronic for him. Patient does have morphine pain pump along with Jewett for breakthrough pain. On 05/18/2019 patient was seen and examined on the medical floor he is complaining of low water intake however his sodium level is down to 127 he has been off diuretics at this time will restart IV fluid normal saline at 50 mL an hour. Patient also is complaining of diarrhea and blood in the stool, we are still awaiting stool sample for C. diff. He is still complaining of cough shortness of breath and wheezing Otherwise he denies any complaints there is no fever or chills no headache or dizziness no chest pain no nausea or vomiting no abdominal pain no burning was urination no frequency or urgency and no hematuria On 05/19/2019 patient is still complaining of diarrhea he is complaining of blood in his stools. He is still complaining of cough and shortness of breath, otherwise he denies any complaints there is no fever or chills no headache or dizziness no chest pain no nausea or vomiting no abdominal pain, no burning with urination no frequency or urgency and no hematuria. On 05/20/2019 patient is alert and oriented 3. Patient is still having some diarrhea with bleeding from hemorrhoids. Hemoglobin improving to 8.2. GI services following. Patient is still short of breath with activity patient remains on Decadron. Sodium improving to 129. Nephrology services following. Patient denies chest pain. Patient denies nausea or vomiting. Patient denies any urinary burning frequency. C. diff sample has been ordered. Discussed with nursing staff On 05/21/2019 patient's alert and oriented 3. Patient reports some improvement with shortness of breath. Per nursing staff C. diff sample was attempted to be sent up her lab unable to test due to stool being formed. Patient will undergo EGD today per GI services sodium improving to 132. Lasix has been resumed per nephrology. Patient denies chest pain. Patient denies nausea or vomiting. Patient denies any urinary burning or frequency On 05/22/2019 patient's alert and oriented 3. Patient underwent EGD. Hemoglobin 8.3. Sodium remained stable at 132. Decadron has been DC'd per pulmonary. Patient remains on prednisone and Levaquin. Patient denies chest pain. Patient denies nausea vomiting or diarrhea. Patient denies any urinary burning or frequency. On 05/23/2019 patient's alert and oriented 3. Patient reports some improvement. Hemoglobin 8.7. Patient currently on Diflucan for Lisbeth esophagitis. Patient has been started back on Decadron per pulmonary. Lasix increased per nephrology. Patient denies chest pain. Patient denies nausea vomiting or diarrhea. Patient denies any urinary burning and frequency On 05/24/2019 patient's alert and oriented 3. Patient showing some improvement his breathing. Hemoglobin 9.2. 3 days of IV iron has been ordered per nephrology services sodium 130. This time patient denies chest pain. Denies nausea vomiting or diarrhea. Denies any urinary burning or frequency. On 05/25/2019 patient was seen and examined on the medical floor he is alert and oriented 3 in no apparent distress he is still complaining of blood in the stools and complaining of shortness of breath especially was activity he has occasional cough with white to yellow sputum production otherwise he denies any complaints there is no fever or chills no headache or dizziness no chest pain no nausea or vomiting no abdominal pain no diarrhea no burning with urination no frequency or urgency and no hematuria sodium is down again to 129 patient was counseled in length in regards to fluid restriction On 05/26/2019 patient was seen and examined on the medical floor he is still co mplaining of cough with yellow sputum production he is also complaining of small amount of blood in his stools otherwise he denies any complaints there is no fever or chills no headache or dizziness no chest pain no shortness of breath no cough no nausea or vomiting no abdominal pain no diarrhea no burning with urination no frequency or urgency and no hematuria on 05/27/2019 patient's alert and oriented 3. Patient states he feels ready and eager to go home. Patient has been cleared by both pulmonary and nephrology services. Per pulmonary patient will be DC'd on prednisone taper and patient is to resume home dose of prednisone medication. Per nephrology patient will be DC'd C home on decreased dose of Aldactone and Lasix 40 mg twice a day. Repeat CMP has been ordered for 2 days. Patient follow-up with consulting providers PCP for further management. Patient will also be DC'd on Diflucan for 5 more days for Lisbeth esophagitis and hydrocortisone NV cream for hemorrhoids. At t his time patient denies chest pain or shortness breath. Patient denies nausea vomiting or diarrhea. Patient denies any urinary burning or frequency I performed an examination of the patient and discussed their management with the Nurse Practitioner. I have reviewed the Nurse Practitioner's notes and agree with the documented findings and plan of care Patient Condition at Discharge: Stable Plan - Discharge Summary Discharge Rx Participant: No New Discharge Prescriptions: New Spironolactone [Aldactone] 25 mg PO BID 30 Days #30 tab Ferrous Sulfate [Iron (65 MG Elemental)] 325 mg PO BID 30 Days #60 tab Lactobacillus Acidoph & Bulgar [Lactinex] 1 each PO BID 30 Days #60 packet guaiFENesin [Mucinex] 600 mg PO Q12HR PRN 7 Days #14 tablet.er PRN Reason: Cough Hydrocortisone Pr Cream [Proctosol-Hc 2.5%] 1 applic RECTAL BID 20 Days #40 applic Montelukast [Singulair] 10 mg PO HS 30 Days #30 tab predniSONE 10 mg PO DIRECTED 9 Days #27 tab Fluconazole [Diflucan] 100 mg PO DAILY 5 Days #5 tab Continue Furosemide [Lasix] 40 mg PO BID Insulin Glargine [Lantus] 45 unit SQ HS Finasteride [Proscar] 5 mg PO DAILY Nitroglycerin Sl Tabs [Nitrostat] 0.4 mg SUBLINGUAL Q5M PRN #50 tab PRN Reason: Chest Pain Ranitidine HCl [Zantac] 150 mg PO BID Pyridostigmine [place] [Mestinon] 60 mg PO Q4H Losartan [Cozaar] 50 mg PO DAILY Isosorbide Mononitrate ER [Imdur] 90 mg PO DAILY Magnesium Oxide [Mag-Ox] 400 mg PO DAILY Pantoprazole Sodium [Protonix] 40 mg PO DAILY lamoTRIgine [LaMICtal] 100 mg PO BID Insulin Aspart [NovoLOG] See Protocol SQ AC-TID Cholecalciferol [Vitamin D3 (25 Mcg = 1000 Iu)] 1,000 unit PO DAILY Albuterol Sulfate [Proair Hfa] 1 puff INHALATION RT-Q4H PRN PRN Reason: Shortness Of Breath lamiVUDine [Lamivudine] 300 mg PO DAILY Morphine Pain Pump 1 dose INTRATHECA CONTINUOUS INSULIN ASPART (NovoLOG) [NovoLOG (formulary)] 3 unit SQ AC-TID vial Multivitamins, Thera [Multivitamin (formulary)] 1 tab PO DAILY predniSONE 10 mg PO DAILY Vitamin E 1,000 unit PO DAILY Loperamide [Imodium] 4 mg PO TID PRN PRN Reason: Diarrhea Cyanocobalamin [Vitamin B-12] 500 mcg PO DAILY Discontinued Spironolactone 75 mg PO DAILY Discharge Medication List Finasteride [Proscar] 5 mg PO DAILY 04/14/15 [History] Furosemide [Lasix] 40 mg PO BID 04/14/15 [History] Insulin Glargine [Lantus] 45 unit SQ HS 04/14/15 [History] Nitroglycerin Sl Tabs [Nitrostat] 0.4 mg SUBLINGUAL Q5M PRN #50 tab 09/22/16 [Rx] Losartan [Cozaar] 50 mg PO DAILY 04/04/17 [History] Pyridostigmine [place] [Mestinon] 60 mg PO Q4H 04/04/17 [History] Ranitidine HCl [Zantac] 150 mg PO BID 04/04/17 [History] Insulin Aspart [NovoLOG] See Protocol SQ AC-TID 08/02/17 [History] Isosorbide Mononitrate ER [Imdur] 90 mg PO DAILY 08/02/17 [History] Magnesium Oxide [Mag-Ox] 400 mg PO DAILY 08/02/17 [History] Pantoprazole Sodium [Protonix] 40 mg PO DAILY 08/02/17 [History] lamoTRIgine [LaMICtal] 100 mg PO BID 08/02/17 [History] Albuterol Sulfate [Proair Hfa] 1 puff INHALATION RT-Q4H PRN 10/25/18 [History] Cholecalciferol [Vitamin D3 (25 Mcg = 1000 Iu)] 1,000 unit PO DAILY 10/25/18 [History] Morphine Pain Pump 1 dose INTRATHECA CONTINUOUS 10/25/18 [History] lamiVUDine [Lamivudine] 300 mg PO DAILY 10/25/18 [History] INSULIN ASPART (NovoLOG) [NovoLOG (formulary)] 3 unit SQ AC-TID vial 11/03/18 [Rx] Cyanocobalamin [Vitamin B-12] 500 mcg PO DAILY 05/09/19 [History] Loperamide [Imodium] 4 mg PO TID PRN 05/09/19 [History] Multivitamins, Thera [Multivitamin (formulary)] 1 tab PO DAILY 05/09/19 [History] Vitamin E 1,000 unit PO DAILY 05/09/19 [History] predniSONE 10 mg PO DAILY 05/09/19 [History] Ferrous Sulfate [Iron (65 MG Elemental)] 325 mg PO BID 30 Days #60 tab 05/27/19 [Rx] Fluconazole [Diflucan] 100 mg PO DAILY 5 Days #5 tab 05/27/19 [Rx] Hydrocortisone Pr Cream [Proctosol-Hc 2.5%] 1 applic RECTAL BID 20 Days #40 applic 05/27/19 [Rx] Lactobacillus Acidoph & Bulgar [Lactinex] 1 each PO BID 30 Days #60 packet 05/27/19 [Rx] Montelukast [Singulair] 10 mg PO HS 30 Days #30 tab 05/27/19 [Rx] Spironolactone [Aldactone] 25 mg PO BID 30 Days #30 tab 05/27/19 [Rx] guaiFENesin [Mucinex] 600 mg PO Q12HR PRN 7 Days #14 tablet.er 05/27/19 [Rx] predniSONE 10 mg PO DIRECTED 9 Days #27 tab 05/27/19 [Rx] Follow up Appointment(s)/Referral(s): Josr Osorio MD [Primary Care Provider] - 1-2 days Frankie Basilio MD [STAFF PHYSICIAN] - 1 Week Ambulatory/Diagnostic Orders: Basic Metabolic Panel [LAB.AMB] Time Frame: 2 Days, Location: None Selected Activity/Diet/Wound Care/Special Instructions: you will need to call Hallie at [facility] to make an appt to be evaluated. phone number# [phone] fax# Discharge Disposition: HOME SELF-CARE
--- NOTE | 2019-05-27 15:14 | P.PN ---
Subjective Progress Note Date: 05/27/19 Principal diagnosis: Acute on chronic hypoxic respiratory failure Pulmonary fibrosis Purulent tracheobronchitis Bilateral lower extremity edema Diastolic heart failure acute on chronic Morbid obesity Obstructive sleep apnea Myasthenia gravis stable on Pyridostigmine Hypertension hypertensive cardiovascular disease Thrombocytopenia History of chronic liver disease 05/27/2019, patient seen eval examined during the rounds labs reviewed medications reviewed care plan to discuss the steroids taper with the nursing staff and primary service patient is to be discharged home later on today 05/18/2019, patient seen and evaluated examined during the rounds labs reviewed medications reviewed care plan discussed with the patient and staff at length, still have ongoing intermittent diarrhea and hematochezia GI is following, labs reviewed sodium is 127 patient is on IV fluids with normal saline respiratory status stable denies any shortness of breath, sputum or chest pain 05/16/2019, patient seen eval examined during the rounds breathing relatively more comfortably has more of a back pain that's is however chronic denies any chest pain labs reviewed medications reviewed, patient has been on Decadron This is a 73-year-old morbidly obese male with history of obstructive sleep apnea and myasthenia gravis, patient has a history of pulmonary fibrosis and chronic hypoxic respiratory failure has been on oxygen 2 L nasal cannula, he has chronic lower extremity edema, came into the hospital with progressive shortness of breath for last 2 days getting worse symptoms actually started more than a week ago and lower extremity edema was getting worse does have thick sputum production which is still issues green in color his chest x-ray revealed bilateral pulmonary fibrosis occult pneumonia cannot be excluded patient is on broad-spectrum antibiotics breathing treatment and steroids feels slightly better than before Objective - Vital Signs Vital signs: Vital Signs Temp 97.8 F 05/27/19 12:09 Pulse 91 05/27/19 12:09 Resp 16 05/27/19 12:09 BP 133/61 05/27/19 12:09 Pulse Ox 99 05/27/19 12:09 Intake & Output 05/26/19 05/27/19 05/27/19 18:59 06:59 18:59 Intake Total 360 336 780 Output Total 1200 400 Balance -840 336 380 Weight 114.447 kg Intake: Oral 360 336 780 Output: Urine 1200 400 Other: Voiding Method Toilet Toilet Toilet Urinal Urinal Urinal # Voids 2 3 3 # Bowel Movements 1 - Exam - Constitutional General appearance: cooperative, disheveled, mild distress, morbidly obese, no acute distress - EENT Eyes: PERRLA, poor dentition Ears: bilateral: normal - Neck Carotids: bilateral: upstroke normal - Respiratory Respiratory: bilateral: diminished, rales (Bilateral dry), negative: CTA, du llness, rhonchi, wheezing, prolonged expiration - Cardiovascular Rhythm: regular Heart sounds: normal: S1, S2 - Gastrointestinal General gastrointestinal: absent bowel sounds - Integumentary Integumentary: normal turgor - Neurologic Neurologic: CNII-XII intact - Musculoskeletal Musculoskeletal: gait normal, generalized weakness, strength equal bilaterally - Psychiatric Psychiatric: A&O x's 3, appropriate affect, intact judgment & insight - Labs CBC & Chem 7: 05/27/19 08:07 05/27/19 08:07 Labs: Abnormal Lab Results - Last 24 Hours (Table) 05/26/19 05/26/19 05/27/19 Range/Units 17:17 20:29 07:20 WBC (3.8-10.6) k/uL RBC (4.30-5.90) m/uL Hgb (13.0-17.5) gm/dL Hct (39.0-53.0) % MCV (80.0-100.0) fL MCH (25.0-35.0) pg RDW (11.5-15.5) % Plt Count (150-450) k/uL Neutrophils # (1.3-7.7) k/uL Lymphocytes # (1.0-4.8) k/uL Sodium (137-145) mmol/L BUN (9-20) mg/dL Creatinine (0.66-1.25) mg/dL Glucose (74-99) mg/dL POC Glucose (mg/dL) 307 H 184 H 161 H (75-99) mg/dL Magnesium (1.6-2.3) mg/dL ALT (21-72) U/L Total Protein (6.3-8.2) g/dL 05/27/19 05/27/19 05/27/19 Range/Units 08:07 08:07 11:25 WBC 19.3 H (3.8-10.6) k/uL RBC 3.96 L (4.30-5.90) m/uL Hgb 9.6 L (13.0-17.5) gm/dL Hct 31.0 L (39.0-53.0) % MCV 78.3 L (80.0-100.0) fL MCH 24.4 L (25.0-35.0) pg RDW 18.4 H (11.5-15.5) % Plt Count 144 L (150-450) k/uL Neutrophils # 17.9 H (1.3-7.7) k/uL Lymphocytes # 0.6 L (1.0-4.8) k/uL Sodium 132 L (137-145) mmol/L BUN 45 H (9-20) mg/dL Creatinine 1.27 H (0.66-1.25) mg/dL Glucose 111 H (74-99) mg/dL POC Glucose (mg/dL) 396 H (75-99) mg/dL Magnesium 2.4 H (1.6-2.3) mg/dL ALT 76 H (21-72) U/L Total Protein 6.0 L (6.3-8.2) g/dL Assessment and Plan Assessment: Hyponatremia Hematochezia Ongoing intermittent diarrhea Acute on chronic hypoxic respiratory failure Pulmonary fibrosis Purulent tracheobronchitis Bilateral lower extremity edema Diastolic heart failure acute on chronic Morbid obesity Obstructive sleep apnea Myasthenia gravis stable on Pyridostigmine Hypertension hypertensive cardiovascular disease Thrombocytopenia History of chronic liver disease Plan: Continue gentle rehydration Monitor off of short course of Decadron Gentle diuresis Agree with discharge planning and follow-up in outpatient basis Continue supportive care Breathing treatments Other recommendations pending plan of care as per clinical response of the patient Time with Patient: Greater than 30
[2019-05-27] MEDS ORDERED: FUROSEMIDE 40 MG TAB PO SCH (16:00)
--- NOTE | 2019-05-28 14:34 | CDI ---
Documentation Clarification Form Date: 05/28/19 From: Thu Seaman Phone: If you have a question about this query, please contact Beth Valdes, Nanoscience Technician at [phone] between 8am and 5pm. Admit Date: 05/11/19 Discharge Date: 05/27/19 Patient Name: Duke Sánchez Visit Number: [id number] ATTENTION: The Clinical Documentation Specialists (CDI) and [facility] Coding Staff appreciate your assistance in clarifying documentation. Please respond to the clarification below the line at the bottom and electronically sign. The CDI & [facility] Coding staff will review the response and follow-up if needed. Please note: Queries are made part of the Legal Health Record. If you have any questions, please contact the author of this message via ITS. Dear Dr. Josr Osorio, The patient has Type II diabetes, as indicated on progress note ED Note, H&P consults, PNs and DS. History/Risk Factors: pulmonary fibrosis, acute tracheobronchitis, acute on chronic diastolic CHF, cellulitis of bilateral extremities, Clinical Indicators: Starting with 05/17 thru 05/23 PN and DS states patient's blood sugars elevated due to Decadron and noncompliance with diabetic diet. Treatment: NovoLog Per [facility] 2016 - query the provider for clarification whether the patient has hyperglycemia or hypoglycemia so that the appropriate code may be reported - uncontrolled diabetes indicates that the patient's blood sugar is not at an acceptable level, because it is either too high or too low. In order to capture the severity of Illness and necessary documentation specificity, please clarify if the elevated Type 2 diabetes is: Hyperglycemia Other, please specify Unable to Determine Please continue to document in your progress notes and discharge summary in order to capture severity of illness and risk of mortality. Include clinical findings that support your diagnosis. Hyperglycemia MTDD
== END 2019-05-27 15:58 | disposition home or self-care (01) | DRG 196 ==
LOC: EC 18:28 → 3NMEDONC 20:31 → OBSVTOIN 05-11 17:13 → 3NMEDONC 05-14 11:32
PROVIDERS: ADMIT Internal Medicine; ATTEND Internal Medicine
PROC: 30233N1 Transfusion of Nonautologous Red Blood Cells into Peripheral Vein, Percutaneous Approach (ICD-10-PCS; 2019-05-19)
PROC: 0DB78ZX Excision of Stomach, Pylorus, Via Natural or Artificial Opening Endoscopic, Diagnostic (ICD-10-PCS; 2019-05-21)
PROC: 0DB58ZX Excision of Esophagus, Via Natural or Artificial Opening Endoscopic, Diagnostic (ICD-10-PCS; principal; 2019-05-21 07:45)
DX: J84.10 Pulmonary fibrosis, unspecified (principal); J96.21 Acute and chronic respiratory failure with hypoxia; I50.33 Acute on chronic diastolic (congestive) heart failure; D62 Acute posthemorrhagic anemia; J44.0 Chronic obstructive pulmonary disease with (acute) lower respiratory infection; J44.1 Chronic obstructive pulmonary disease with (acute) exacerbation; L03.115 Cellulitis of right lower limb; I13.0 Hypertensive heart and chronic kidney disease with heart failure and stage 1 through stage 4 chronic kidney disease, or unspecified chronic kidney disease; B37.81 Candidal esophagitis; L03.116 Cellulitis of left lower limb; K76.6 Portal hypertension; I85.00 Esophageal varices without bleeding; B18.1 Chronic viral hepatitis B without delta-agent; N17.9 Acute kidney failure, unspecified; E87.1 Hypo-osmolality and hyponatremia; J45.901 Unspecified asthma with (acute) exacerbation; K52.1 Toxic gastroenteritis and colitis; D69.59 Other secondary thrombocytopenia; E11.22 Type 2 diabetes mellitus with diabetic chronic kidney disease; G70.00 Myasthenia gravis without (acute) exacerbation; E11.42 Type 2 diabetes mellitus with diabetic polyneuropathy; E87.70 Fluid overload, unspecified; I27.20 Pulmonary hypertension, unspecified; E11.65 Type 2 diabetes mellitus with hyperglycemia; E66.01 Morbid (severe) obesity due to excess calories; E86.1 Hypovolemia; G40.909 Epilepsy, unspecified, not intractable, without status epilepticus; K74.69 Other cirrhosis of liver; J20.9 Acute bronchitis, unspecified; N18.9 Chronic kidney disease, unspecified; G47.33 Obstructive sleep apnea (adult) (pediatric); K31.89 Other diseases of stomach and duodenum; K64.8 Other hemorrhoids; I86.4 Gastric varices; D50.9 Iron deficiency anemia, unspecified; T36.8X5A Adverse effect of other systemic antibiotics, initial encounter; T50.2X5A Adverse effect of carbonic-anhydrase inhibitors, benzothiadiazides and other diuretics, initial encounter; E03.9 Hypothyroidism, unspecified; E78.5 Hyperlipidemia, unspecified; K21.9 Gastro-esophageal reflux disease without esophagitis; K57.90 Diverticulosis of intestine, part unspecified, without perforation or abscess without bleeding; I25.10 Atherosclerotic heart disease of native coronary artery without angina pectoris; T38.0X5A Adverse effect of glucocorticoids and synthetic analogues, initial encounter; I25.2 Old myocardial infarction; N40.0 Benign prostatic hyperplasia without lower urinary tract symptoms; G89.4 Chronic pain syndrome; M54.5 Low back pain; K59.09 Other constipation; M54.2 Cervicalgia; M54.6 Pain in thoracic spine; H53.149 Visual discomfort, unspecified; H91.90 Unspecified hearing loss, unspecified ear; Z68.35 Body mass index [BMI] 35.0-35.9, adult; Z79.4 Long term (current) use of insulin; Z79.52 Long term (current) use of systemic steroids; Z79.899 Other long term (current) drug therapy; Z91.19 Patient's noncompliance with other medical treatment and regimen; Z91.11 Patient's noncompliance with dietary regimen; Z86.73 Personal history of transient ischemic attack (TIA), and cerebral infarction without residual deficits; Z87.01 Personal history of pneumonia (recurrent); Z86.19 Personal history of other infectious and parasitic diseases; Z98.890 Other specified postprocedural states; Z87.891 Personal history of nicotine dependence; Z98.42 Cataract extraction status, left eye; Z98.41 Cataract extraction status, right eye; Z96.1 Presence of intraocular lens; Z96.698 Presence of other orthopedic joint implants; Z99.81 Dependence on supplemental oxygen; Z86.59 Personal history of other mental and behavioral disorders; Z86.010 Personal history of colon polyps; Z99.89 Dependence on other enabling machines and devices; Z96.89 Presence of other specified functional implants; Z71.3 Dietary counseling and surveillance; Z88.1 Allergy status to other antibiotic agents; Z88.8 Allergy status to other drugs, medicaments and biological substances; Z81.8 Family history of other mental and behavioral disorders; Z80.1 Family history of malignant neoplasm of trachea, bronchus and lung; Z80.8 Family history of malignant neoplasm of other organs or systems; Z83.1 Family history of other infectious and parasitic diseases; Z81.2 Family history of tobacco abuse and dependence
CPT/HCPCS: 36415; 43239; 71046; 80053; 82728; 83036; 83540; 83550; 83735; 83880; 84484; 85025; 85610; 85730; 86850; 86900; 86901; 86920; 87070; 87205; 87502; 88305; 93005; 94640; 94760; 96365; 99285

== ENCOUNTER 2020-06-24 11:52 | Emergency (ER) | payer MEDICARE, BC ==
[2020-06-24 11:56] VITALS: TEMP 98.6
[2020-06-24 12:07] VITALS: RESP 18
[2020-06-24 12:28] LABS: Basophils % (A) 0 %; Eosinophils % (A) 1 %; HCT 33.7 % (39.0-53.0); HGB 11.7 gm/dL (13.0-17.5); Lymphocytes # (A) 0.8 k/uL (1.0-4.8); Lymphocytes % (A) 12 %; MCH 32.7 pg (25.0-35.0); MCHC 34.8 g/dL (31.0-37.0); MCV 94.1 fL (80.0-100.0); Mean Platelet Volume 8.3; Monocytes # (A) 0.4 k/uL (0-1.0); Monocytes % (A) 6 %; Neutrophils # (A) 5.5 k/uL (1.3-7.7); Neutrophils % (A) 79 %; Platelet Count 102 k/uL (150-450); RBC 3.58 m/uL (4.30-5.90); RDW 15.2 % (11.5-15.5)
[2020-06-24 12:38] LABS: INR 1.1 (<1.2); Partial Thromboplastin Time 23.9 sec (22.0-30.0); Prothrombin Time 10.9 sec (9.0-12.0)
[2020-06-24 12:42] LABS: Albumin 3.6 g/dL (3.5-5.0); Magnesium 1.3 mg/dL (1.6-2.3); Potassium 4.9 mmol/L (3.5-5.1); Total Bilirubin 1.1 mg/dL (0.2-1.3); Total Protein 6.3 g/dL (6.3-8.2)
--- NOTE | 2020-06-24 12:52 | ED ---
General Adult HPI - General Source: patient, RN notes reviewed Mode of arrival: wheelchair Limitations: no limitations <Josh Mcknight - Last Filed: 06/24/20 13:36> <David Oleary - Last Filed: 06/24/20 13:53> - General Chief complaint: Shortness of Breath Stated complaint: SOB Time Seen by Provider: 06/24/20 12:03 - History of Present Illness Initial comments: This is a 74-year-old male presents emergency Department chief complaint weakness. Patient states that he was concerned when he cannot feel his own pul se at home. Patient states that he became very anxious and worried slightly present emergency from. Patient has chronic shortness of breath related to interstitial lung disease, myasthenia gravis. Patient states that he does not feel worsened usual. He does have a wash his been that he wears only when asymptomatic. Reports no chest pain. He doesn't at that he has lower extremity edema which is slightly worse. Patient states she does have a history of congestive heart failure. He recently was discharged from rehab after he had multiple injuries to his lower extremities. He's been less ambulatory. (Josh Mcknight) - Related Data Home Medications Medication Instructions Recorded Confirmed Finasteride [Proscar] 5 mg PO DAILY 04/14/15 05/09/19 Furosemide [Lasix] 40 mg PO BID 04/14/15 05/09/19 Insulin Glargine [Lantus] 45 unit SQ HS 04/14/15 05/09/19 Losartan [Cozaar] 50 mg PO DAILY 04/04/17 05/09/19 Pyridostigmine [place] [Mestinon] 60 mg PO Q4H 04/04/17 05/09/19 Ranitidine HCl [Zantac] 150 mg PO BID 04/04/17 05/09/19 Insulin Aspart [NovoLOG] See Protocol SQ AC-TID 08/02/17 05/09/19 Isosorbide Mononitrate ER [Imdur] 90 mg PO DAILY 08/02/17 05/09/19 Magnesium Oxide [Mag-Ox] 400 mg PO DAILY 08/02/17 05/09/19 Pantoprazole Sodium [Protonix] 40 mg PO DAILY 08/02/17 05/09/19 lamoTRIgine [LaMICtal] 100 mg PO BID 08/02/17 05/09/19 Albuterol Sulfate [Proair Hfa] 1 puff INHALATION RT-Q4H PRN 10/25/18 05/09/19 Cholecalciferol [Vitamin D3 (25 1,000 unit PO DAILY 10/25/18 05/09/19 Mcg = 1000 Iu)] Morphine Pain Pump 1 dose INTRATHECA CONTINUOUS 10/25/18 05/09/19 lamiVUDine 300 mg PO DAILY 10/25/18 05/09/19 Cyanocobalamin [Vitamin B-12] 500 mcg PO DAILY 05/09/19 05/09/19 Loperamide [Imodium] 4 mg PO TID PRN 05/09/19 05/09/19 Multivitamins, Thera [Multivitamin 1 tab PO DAILY 05/09/19 05/09/19 (formulary)] Vitamin E 1,000 unit PO DAILY 05/09/19 05/09/19 predniSONE 10 mg PO DAILY 05/09/19 05/09/19 Previous Rx's Medication Instructions Recorded Nitroglycerin Sl Tabs [Nitrostat] 0.4 mg SUBLINGUAL Q5M PRN #50 tab 09/22/16 INSULIN ASPART (NovoLOG) [NovoLOG 3 unit SQ AC-TID vial 11/03/18 (formulary)] Ferrous Sulfate [Iron (65 MG 325 mg PO BID 30 Days #60 tab 05/27/19 Elemental)] Fluconazole [Diflucan] 100 mg PO DAILY 5 Days #5 tab 05/27/19 Hydrocortisone Pr Cream 1 applic RECTAL BID 20 Days #40 05/27/19 [Proctosol-Hc 2.5%] applic Lactobacillus Acidoph & Bulgar 1 each PO BID 30 Days #60 packet 05/27/19 [Lactinex] Montelukast [Singulair] 10 mg PO HS 30 Days #30 tab 05/27/19 Spironolactone [Aldactone] 25 mg PO BID 30 Days #30 tab 05/27/19 guaiFENesin [Mucinex] 600 mg PO Q12HR PRN 7 Days #14 05/27/19 tablet.er predniSONE 10 mg PO DIRECTED 9 Days #27 tab 05/27/19 Allergies Allergy/AdvReac Type Severity Reaction Status Date / Time methylprednisolone acetate Allergy Severe Anaphylaxis Verified 06/24/20 11:56 [From Depo-Medrol] cephalexin [From Keflex] Allergy Rash/Hives Verified 06/24/20 11:56 cyclobenzaprine Allergy Unknown Verified 06/24/20 11:56 [From Flexeril] metformin Allergy Unknown Verified 06/24/20 11:56 methylprednisolone Allergy Rash/Hives Verified 06/24/20 11:56 [From Depo-Medrol] tolterodine [From Detrol] Allergy Unknown Verified 06/24/20 11:56 duloxetine [From Cymbalta] AdvReac Intense Verified 06/24/20 11:56 Flushing gabapentin [From Neurontin] AdvReac Tremors Verified 06/24/20 11:56 polyethylene glycol AdvReac Confusion Verified 06/24/20 11:56 [From Golytely] polyethylene glycol 3350 AdvReac Confusion Verified 06/24/20 11:56 [From Golytely] potassium chloride AdvReac Confusion Verified 06/24/20 11:56 [From Golytely] pregabalin [From Lyrica] AdvReac Intense Verified 06/24/20 11:56 Flushing sodium [From Golytely] AdvReac Confusion Verified 06/24/20 11:56 sodium bicarbonate AdvReac Confusion Verified 06/24/20 11:56 [From Golytely] sodium chloride AdvReac Confusion Verified 06/24/20 11:56 [From Golytely] sodium sulfate AdvReac Confusion Verified 06/24/20 11:56 [From Golytely] sodium sulfate anhydrous AdvReac Confusion Verified 06/24/20 11:56 [From Golytely] Review of Systems ROS Other: All systems not noted in ROS Statement are negative. <Josh Mcknight - Last Filed: 06/24/20 13:36> ROS Other: All systems not noted in ROS Statement are negative. <David Oleary - Last Filed: 06/24/20 13:53> ROS Statement: Those systems with pertinent positive or pertinent negative responses have been documented in the HPI. Past Medical History Past Medical History: COPD, CVA/TIA, Diabetes Mellitus, Eye Disorder, GERD/Reflux, Hearing Disorder / Deafness, Hyperlipidemia, Hypertension, Liver Disease, Memory Impairment, Pneumonia, Prostate Disorder, Seizure Disorder, Sleep Apnea/CPAP/BIPAP, Thyroid Disorder Additional Past Medical History / Comment(s): Pulmonary fibrosis, COPD, diabetes mellitus, photophobia, impaired hearing, hyperlipidemia, hypertension, liver cirrhosis, BPH, peripheral neuropathy, chronic back pain, chronic cervical pain, difficulty with swallowing, myasthenia gravis, chronic constipation, chronic anemia, history of esophageal and gastric varices related to chronic liver disease, splenomegaly, obstructive sleep apnea and the patient has not been utilizing CPAP treatment. Last Myocardial Infarction Date:: 1989 History of Any Multi-Drug Resistant Organisms: VRE Date of last positivie culture/infection: 05/09/18 MDRO Source:: VRE URINE Past Surgical History: Heart Catheterization, Hernia Repair, Orthopedic Surgery, Tonsillectomy Additional Past Surgical History / Comment(s): EGDs/colonoscopies, RT GREAT TOE JOINT replaced, RT SHOULDER rotator cuff repair. rt and left cataract removals with lens implants, bilateral inguinal hernia repairs & hydrocele repair Past Anesthesia/Blood Transfusion Reactions: Motion Sickness Additional Past Anesthesia/Blood Transfusion Reaction / Comment(s): no hx blood transfusion Past Psychological History: Depression Smoking Status: Never smoker Past Alcohol Use History: None Reported Past Drug Use History: None Reported - Past Family History Mother Family Medical History: Liver Disease, Pneumonia Additional Family Medical History / Comment(s): alcoholism Father Family Medical History: Cancer Additional Family Medical History / Comment(s): Father had lung cancer with mets to brain. He was a nonsmoker but his spouse smoked in the house. <Josh Mcknight - Last Filed: 06/24/20 13:36> General Exam Limitations: no limitations General appearance: alert, in no apparent distress Head exam: Present: atraumatic, normocephalic, normal inspection Eye exam: Present: normal appearance, PERRL, EOMI. Absent: scleral icterus, conjunctival injection, periorbital swelling ENT exam: Present: normal exam, normal oropharynx, mucous membranes moist, TM's normal bilaterally Neck exam: Present: normal inspection. Absent: tenderness, meningismus, lymphadenopathy Respiratory exam: Present: wheezes (faint), decreased breath sounds. Absent: normal lung sounds bilaterally, respiratory distress, rales, rhonchi, stridor Cardiovascular Exam: Present: regular rate, normal rhythm, normal heart sounds. Absent: systolic murmur, diastolic murmur, rubs, gallop, clicks Extremities exam: Present: pedal edema. Absent: calf tenderness Neurological exam: Present: alert, oriented X3 <Josh Mcknight - Last Filed: 06/24/20 13:36> Course <David Oleary - Last Filed: 06/24/20 13:53> Vital Signs 06/24/20 06/24/20 06/24/20 11:54 12:05 13:35 Temperature 98.6 F Pulse Rate 73 66 60 Respiratory 22 18 18 Rate Blood Pressure 106/57 105/56 100/52 O2 Sat by Pulse 91 L 97 98 Oximetry - Reevaluation(s) Reevaluation #1: 06/24/20 13:53 PA supervision: I did personally evaluate the patient did present with complaints of weakness. He states he cannot feel his pulse did receive IV fluids and is improved at this time will be discharged he is awake alert oriented 3 with no complaints at this time. No agree the assessment and plan. (David Oleary) EKG Findings - EKG Comments: EKG Findings:: 12:03 normal sinus rhythm rate of 69 ME 138 QRS 98 QTC is QTC 384/411 <Josh Mcknight - Last Filed: 06/24/20 13:36> Medical Decision Making - Lab Data Result diagrams: 06/24/20 12:03 06/24/20 12:03 <Josh Mcknight - Last Filed: 06/24/20 13:36> - Lab Data Result diagrams: 06/24/20 12:03 06/24/20 12:03 <David Oleary - Last Filed: 06/24/20 13:53> - Medical Decision Making 74-year-old male presented for unable to obtain his blood pressure and pulse at home on his machine he became concerned presented labs. Mild hypomagnesemia, mild dehydration, vitals are otherwise unremarkable. Patient has no complete chest pain shortness of breath abdominal pain. Patient states he feels at his normal baseline and agrees to plan of discharge. (Josh Mcknight) - Lab Data Lab Results 06/24/20 06/24/20 06/24/20 Range/Units 12:03 12:03 12:03 WBC 7.0 (3.8-10.6) k/uL RBC 3.58 L (4.30-5.90) m/uL Hgb 11.7 L (13.0-17.5) gm/dL Hct 33.7 L (39.0-53.0) % MCV 94.1 (80.0-100.0) fL MCH 32.7 (25.0-35.0) pg MCHC 34.8 (31.0-37.0) g/dL RDW 15.2 (11.5-15.5) % Plt Count 102 L (150-450) k/uL MPV 8.3 Neutrophils % 79 % Lymphocytes % 12 % Monocytes % 6 % Eosinophils % 1 % Basophils % 0 % Neutrophils # 5.5 (1.3-7.7) k/uL Lymphocytes # 0.8 L (1.0-4.8) k/uL Monocytes # 0.4 (0-1.0) k/uL Eosinophils # 0.0 (0-0.7) k/uL Basophils # 0.0 (0-0.2) k/uL PT 10.9 (9.0-12.0) sec INR 1.1 (<1.2) APTT 23.9 (22.0-30.0) sec Sodium 132 L (137-145) mmol/L Potassium 4.9 (3.5-5.1) mmol/L Chloride 101 (98-107) mmol/L Carbon Dioxide 29 (22-30) mmol/L Anion Gap 2 mmol/L BUN 35 H (9-20) mg/dL Creatinine 1.75 H (0.66-1.25) mg/dL Est GFR (CKD-EPI)AfAm 43 (>60 ml/min/1.73 sqM) Est GFR (CKD-EPI)NonAf 38 (>60 ml/min/1.73 sqM) Glucose 135 H (74-99) mg/dL Calcium 9.0 (8.4-10.2) mg/dL Magnesium 1.3 L (1.6-2.3) mg/dL Total Bilirubin 1.1 (0.2-1.3) mg/dL AST 28 (17-59) U/L ALT 18 (4-49) U/L Alkaline Phosphatase 94 (38-126) U/L Troponin I (0.000-0.034) ng/mL NT-Pro-B Natriuret Pep pg/mL Total Protein 6.3 (6.3-8.2) g/dL Albumin 3.6 (3.5-5.0) g/dL 12/23/20 12/23/20 Range/Units 12:03 12:03 WBC (3.8-10.6) k/uL RBC (4.30-5.90) m/uL Hgb (13.0-17.5) gm/dL Hct (39.0-53.0) % MCV (80.0-100.0) fL MCH (25.0-35.0) pg MCHC (31.0-37.0) g/dL RDW (11.5-15.5) % Plt Count (150-450) k/uL MPV Neutrophils % % Lymphocytes % % Monocytes % % Eosinophils % % Basophils % % Neutrophils # (1.3-7.7) k/uL Lymphocytes # (1.0-4.8) k/uL Monocytes # (0-1.0) k/uL Eosinophils # (0-0.7) k/uL Basophils # (0-0.2) k/uL PT (9.0-12.0) sec INR (<1.2) APTT (22.0-30.0) sec Sodium (137-145) mmol/L Potassium (3.5-5.1) mmol/L Chloride (98-107) mmol/L Carbon Dioxide (22-30) mmol/L Anion Gap mmol/L BUN (9-20) mg/dL Creatinine (0.66-1.25) mg/dL Est GFR (CKD-EPI)AfAm (>60 ml/min/1.73 sqM) Est GFR (CKD-EPI)NonAf (>60 ml/min/1.73 sqM) Glucose (74-99) mg/dL Calcium (8.4-10.2) mg/dL Magnesium (1.6-2.3) mg/dL Total Bilirubin (0.2-1.3) mg/dL AST (17-59) U/L ALT (4-49) U/L Alkaline Phosphatase (38-126) U/L Troponin I <0.012 (0.000-0.034) ng/mL NT-Pro-B Natriuret Pep 279 pg/mL Total Protein (6.3-8.2) g/dL Albumin (3.5-5.0) g/dL Disposition Is patient prescribed a controlled substance at d/c from ED?: No Time of Disposition: 13:38 <Josh Mcknight - Last Filed: 06/24/20 13:36> <David Oleary - Last Filed: 06/24/20 13:53> Clinical Impression: Hypomagnesemia, Mild dehydration, Fatigue Disposition: HOME SELF-CARE Condition: Stable Instructions (If sedation given, give patient instructions): Hypomagnesemia (ED) Additional Instructions: Please return to the Emergency Department if symptoms worsen or any other concerns. Referrals: Josr Osorio MD [Primary Care Provider] - 1-2 days
--- NOTE | 2020-06-24 12:55 | XR ---
EXAMINATION TYPE: XR chest 2V DATE OF EXAM: 06/24/2020 COMPARISON: Prior chest x-ray 05/09/2019 HISTORY: Difficulty breathing, hypotension TECHNIQUE: Frontal and lateral views of the chest are obtained. FINDINGS: Heart size appears borderline enlarged. Interstitium is again increased. There is no evide nt pneumothorax or pleural effusion. Aorta is dense. Patient is rotated. There are overlying cardiac leads. IMPRESSION: Interstitial lung disease is again seen.
[2020-06-24] MEDS ORDERED: SODIUM CHLORIDE 0.9% 500 ML 500 ML IV ONE (13:11)
[2020-06-24] MEDS ORDERED: MAGNESIUM OXIDE 400 MG TAB PO STA (13:22)
[2020-06-24 14:29] VITALS: BP 96/59; PULSE 62
== END 2020-06-24 14:28 | disposition home or self-care (01) ==
LOC: EC 11:52
DX: E83.42 Hypomagnesemia (principal); E86.0 Dehydration; R53.83 Other fatigue; I11.0 Hypertensive heart disease with heart failure; I50.9 Heart failure, unspecified; E11.42 Type 2 diabetes mellitus with diabetic polyneuropathy; J44.9 Chronic obstructive pulmonary disease, unspecified; N40.0 Benign prostatic hyperplasia without lower urinary tract symptoms; K21.9 Gastro-esophageal reflux disease without esophagitis; G70.00 Myasthenia gravis without (acute) exacerbation; G47.33 Obstructive sleep apnea (adult) (pediatric); H91.90 Unspecified hearing loss, unspecified ear; I25.2 Old myocardial infarction; Z79.51 Long term (current) use of inhaled steroids; Z79.4 Long term (current) use of insulin; Z79.899 Other long term (current) drug therapy; Z88.8 Allergy status to other drugs, medicaments and biological substances; Z91.048 Other nonmedicinal substance allergy status; Z88.1 Allergy status to other antibiotic agents; Z86.73 Personal history of transient ischemic attack (TIA), and cerebral infarction without residual deficits; Z99.89 Dependence on other enabling machines and devices; Z96.698 Presence of other orthopedic joint implants
CPT/HCPCS: 36415; 71046; 80053; 83735; 83880; 84484; 85025; 85610; 85730; 93005; 96360; 99285

== ENCOUNTER 2020-12-27 | Inpatient (IN) | payer MEDICARE, BC | END 2021-01-06 15:35 | DRG 871 | PROVIDERS: ADMIT Internal Medicine | PROC: 02HV33Z Insertion of Infusion Device into Superior Vena Cava, Percutaneous Approach (ICD-10-PCS; principal; 2020-12-29) | PROC: B548ZZA Ultrasonography of Superior Vena Cava, Guidance (ICD-10-PCS; 2020-12-29) | PROC: 5A0945A Assistance with Respiratory Ventilation, 24-96 Consecutive Hours, High Flow/Velocity Cannula (ICD-10-PCS; 2021-01-01) | PROC: 5A09357 Assistance with Respiratory Ventilation, Less than 24 Consecutive Hours, Continuous Positive Airway Pressure (ICD-10-PCS; 2021-01-01) | CPT/HCPCS: 36415; 36573; 71045; 80048; 80053; 81001; 83605; 83735; 83880; 83935; 84484; 85025; 85610; 85730; 87040; 87070; 87077; 87186; 87205; 87635; 93005; 93306; 94640; 94660; 94760; 96374; 99285 ==

== ENCOUNTER 2021-01-24 20:20 | Inpatient (IN) | payer MEDICARE, BC ==
--- NOTE | 2021-01-24 20:36 | ED ---
General Adult HPI - General Chief complaint: Skin/Abscess/Foreign Body Stated complaint: Infection Source: patient, EMS Mode of arrival: EMS Limitations: no limitations - History of Present Illness Initial comments: Eleanor 75-year-old gentleman presents to ER today from [facility] for evaluation of cellulitis of the bilateral lower extremities. Patient has chronic lower extremity edema, recurrent episodes of cellulitis he was recently on antibiotics but they were discontinued on the . He is supposed to wear depression seconds but they have not been available. His legs have become very swollen and tender. Today his family member noted that he had erythema tracking up to the mid thigh and his legs are too swollen to where his compression stockings. He had no fever but staff noted that his heart was racing and recommended transfer to the ER for evaluation and likely treatment with antibiotics. - Related Data Home Medications Medication Instructions Recorded Confirmed Finasteride [Proscar] 5 mg PO HS 04/14/15 01/24/21 Pyridostigmine [place] [Mestinon] 60 mg PO Q4H 04/04/17 01/24/21 Pantoprazole Sodium [Protonix] 40 mg PO DAILY@0600 08/02/17 01/24/21 lamoTRIgine [LaMICtal] 100 mg PO Q12H 08/02/17 01/24/21 Albuterol Sulfate [Proair Hfa] 1 puff INHALATION RT-Q4H PRN 10/25/18 01/24/21 Cholecalciferol [Vitamin D3 (25 25 mcg PO DAILY 10/25/18 01/24/21 Mcg = 1000 Iu)] lamiVUDine 300 mg PO HS 10/25/18 01/24/21 Cyanocobalamin [Vitamin B-12] 500 mcg PO DAILY 05/09/19 01/24/21 Loperamide [Imodium] 4 mg PO TID PRN 05/09/19 01/24/21 Multivitamins, Thera [Multivitamin 1 tab PO DAILY 05/09/19 01/24/21 (formulary)] Vitamin E (Dl,Tocopheryl Acet) 1,000 unit PO DAILY 05/09/19 01/24/21 [Vitamin E] Carboxymethylcellulose Sodium 1 drop BOTH EYES DAILY PRN 12/27/20 01/24/21 [Refresh Tears] Fluticasone Nasal [place] [Flonase 2 spray EA NOSTRIL DAILY 12/27/20 01/24/21 Nasal [place]] Spironolactone [Aldactone] 75 mg PO DAILY 12/27/20 01/24/21 cycloSPORINE 0.05% OPHTH SOLN 1 drop BOTH EYES BID PRN 12/27/20 01/24/21 [Restasis] guaiFENesin [Mucinex] 1,200 mg PO Q12H PRN 12/27/20 01/24/21 ondansetron HCL [Zofran] 4 mg PO Q8H PRN 12/27/20 01/24/21 Digoxin [Lanoxin] 62.5 mcg PO DAILY@0600 01/24/21 01/24/21 Diltiazem Oral [Cardizem Oral] 60 mg PO TID@0600,1400,2200 01/24/21 01/24/21 Furosemide [Lasix] 60 mg PO DAILY@0600 01/24/21 01/24/21 Insulin Detemir [Levemir Flextouch] 40 units SQ HS 01/24/21 01/24/21 Insulin Lispro [humaLOG Kwikpen] See Protocol SQ ACHS@08,12,,01/24/21 01/24/21 Magnesium Oxide [Mag-Oxide] 400 mg PO DAILY 01/24/21 01/24/21 Metoprolol Tartrate [Lopressor] 25 mg PO TID@0600,1400,2200 01/24/21 01/24/21 Midodrine HCl [ProAmatine] 10 mg PO AC-TID@08,12,17 01/24/21 01/24/21 Nitroglycerin Sl Tabs [Nitrostat] 0.4 mg SL Q5M PRN 01/24/21 01/24/21 Prostat Awc 30 ml PO DAILY 01/24/21 01/24/21 Previous Rx's Medication Instructions Recorded Aspirin 81 mg PO DAILY chew 01/06/21 Ipratropium-Albuterol Nebulize 3 ml INHALATION RT-QID ml 01/06/21 [Duoneb 0.5 mg-3 mg/3 ml Soln] Morphine Sulfate Ir [MSIR] 15 mg PO Q6HR PRN 3 Days #12 tab 01/06/21 Allergies Allergy/AdvReac Type Severity Reaction Status Date / Time methylprednisolone acetate Allergy Severe Anaphylaxis Verified 07/25/21 21:21 [From Depo-Medrol] cephalexin [From Keflex] Allergy Rash/Hives Verified 01/24/21 21:21 cyclobenzaprine Allergy Unknown Verified 01/24/21 21:21 [From Flexeril] metformin Allergy Unknown Verified 01/24/21 21:21 methylprednisolone Allergy Rash/Hives Verified 01/24/21 21:21 [From Depo-Medrol] tolterodine [From Detrol] Allergy Unknown Verified 01/24/21 21:21 duloxetine [From Cymbalta] AdvReac Intense Verified 01/24/21 21:21 Flushing gabapentin [From Neurontin] AdvReac Tremors Verified 01/24/21 21:21 polyethylene glycol AdvReac Confusion Verified 01/24/21 21:21 [From Golytely] polyethylene glycol 3350 AdvReac Confusion Verified 01/24/21 21:21 [From Golytely] potassium chloride AdvReac Confusion Verified 01/24/21 21:21 [From Golytely] pregabalin [From Lyrica] AdvReac Intense Verified 01/24/21 21:21 Flushing sodium [From Golytely] AdvReac Confusion Verified 01/24/21 21:21 sodium bicarbonate AdvReac Confusion Verified 01/24/21 21:21 [From Golytely] sodium chloride AdvReac Confusion Verified 01/24/21 21:21 [From Golytely] sodium sulfate AdvReac Confusion Verified 01/24/21 21:21 [From Golytely] sodium sulfate anhydrous AdvReac Confusion Verified 01/24/21 21:21 [From Golytely] Review of Systems ROS Statement: Those systems with pertinent positive or pertinent negative responses have been documented in the HPI. ROS Other: All systems not noted in ROS Statement are negative. Past Medical History Past Medical History: Heart Failure, COPD, CVA/TIA, Diabetes Mellitus, Eye Disorder, GERD/Reflux, Hearing Disorder / Deafness, Hyperlipidemia, Hypertension, Liver Disease, Memory Impairment, Pneumonia, Prostate Disorder, Seizure Disorder, Sleep Apnea/CPAP/BIPAP, Thyroid Disorder Additional Past Medical History / Comment(s): Pulmonary fibrosis, COPD, diabetes mellitus, photophobia, impaired hearing, hyperlipidemia, hypertension, liver cirrhosis, BPH, peripheral neuropathy, chronic back pain, chronic cervical pain, difficulty with swallowing, myasthenia gravis, chronic constipation, chronic anemia, history of esophageal and gastric varices related to chronic liver disease, splenomegaly, obstructive sleep apnea and the patient has not been utilizing CPAP treatment. Last Myocardial Infarction Date:: 1989 History of Any Multi-Drug Resistant Organisms: VRE Date of last positivie culture/infection: 05/09/18 MDRO Source:: VRE URINE Past Surgical History: Heart Catheterization, Hernia Repair, Orthopedic Surgery, Tonsillectomy Additional Past Surgical History / Comment(s): EGDs/colonoscopies, RT GREAT TOE JOINT replaced, RT SHOULDER rotator cuff repair. rt and left cataract removals with lens implants, bilateral inguinal hernia repairs & hydrocele repair Past Anesthesia/Blood Transfusion Reactions: Motion Sickness Additional Past Anesthesia/Blood Transfusion Reaction / Comment(s): no hx blood transfusion Past Psychological History: Depression Smoking Status: Never smoker Past Alcohol Use History: None Reported Past Drug Use History: None Reported - Past Family History Mother Family Medical History: Liver Disease, Pneumonia Additional Family Medical History / Comment(s): alcoholism Father Family Medical History: Cancer Additional Family Medical History / Comment(s): Father had lung cancer with mets to brain. He was a nonsmoker but his spouse smoked in the house. General Exam - General Exam Comments Initial Comments: Physical Exam GENERAL: Chronicall ill appearing HENT: Normocephalic, Atraumatic. EYES: PERRL, EOMI PULMONARY: Unlabored respirations. CARDIOVASCULAR: Tachycardic ABDOMEN: Obese, soft SKIN: Erythema to mid thigh 2+ pitting edema bilateral lower extremities : Hernandez catheter in place NEUROLOGIC: Patient is alert and oriented x3. Moving all extremities spontaneously MUSCULOSKELETAL: Edema and decreased ROM bilateral LE PSYCHIATRIC: Normal psychiatric evaluation. Limitations: no limitations Course Vital Signs 01/24/21 20:22 Temperature 98.2 F Pulse Rate 133 H Respiratory 18 Rate Blood Pressure 117/62 O2 Sat by Pulse 96 Oximetry EKG Findings - EKG Comments: EKG Findings:: CT was obtained due to tachycardia, EKG is obtained at 2043, rate is 129 rhythm is they're complex regular no discernible P waves appears to be atrial flutter with a 2-[address] elevations or depressions no evidence of ischemia or infarction Medical Decision Making - Medical Decision Making Patient was seen and evaluated history is obtained from the patient and review of medical record Patient previous admission for pneumonia with positive sputum cultures excited septic workup was initiated Patient has cephalosporin ALLERGY will be treated with clindamycin Nursing staff able to establish IV access but unsuccessful in obtaining blood, lab to draw patient She care was discussed with primary care physician Dr. Osorio who accepts admission for bilateral lower extremity cellulitis - Lab Data Result diagrams: 01/24/21 22:32 Lab Results 01/24/21 Range/Units 22:32 WBC 4.4 (3.8-10.6) k/uL RBC 3.56 L (4.30-5.90) m/uL Hgb 10.0 L D (13.0-17.5) gm/dL Hct 31.3 L (39.0-53.0) % MCV 88.1 (80.0-100.0) fL MCH 28.1 (25.0-35.0) pg MCHC 31.9 (31.0-37.0) g/dL RDW 18.7 H (11.5-15.5) % MPV 8.2 Hypochromasia Slight Anisocytosis Slight Disposition Clinical Impression: Bilateral lower leg cellulitis, COPD (chronic obstructive pulmonary disease), HTN (hypertension), Hernandez catheter in place Disposition: ADMITTED IP TO THIS HOSP Condition: Serious Referrals: Josr Osorio MD [Primary Care Provider] - 1-2 days
[2021-01-24 22:57] LABS: Anisocytosis Slight; HCT 31.3 % (39.0-53.0); Hypochromasia Slight; MCH 28.1 pg (25.0-35.0); MCHC 31.9 g/dL (31.0-37.0); MCV 88.1 fL (80.0-100.0); Mean Platelet Volume 8.2; RBC 3.56 m/uL (4.30-5.90); RDW 18.7 % (11.5-15.5); WBC 4.4 k/uL (3.8-10.6)
[2021-01-24] MEDS ORDERED: NALOXONE 0.4 MG/ML 1 ML VIAL IV PRN (22:59)
[2021-01-24] MEDS ORDERED: CLINDAMYCIN 600 MG in DEXTROSE 5% IN WATER 50 ML IVPB ONE ×2 (23:00)
[2021-01-24 23:12] LABS: Partial Thromboplastin Time 23.7 sec (22.0-30.0); Prothrombin Time 10.7 sec (9.0-12.0)
[2021-01-24 23:17] LABS: ALT 24 U/L (4-49); AST 35 U/L (17-59); African American GFR (CKD) >90 (>60 ml/min/1.73 sqM); Albumin 2.6 g/dL (3.5-5.0); Alkaline Phosphatase 239 U/L (38-126); Anion Gap 1 mmol/L; Blood Urea Nitrogen 18 mg/dL (9-20); Calcium 8.7 mg/dL (8.4-10.2); Carbon Dioxide 28 mmol/L (22-30); Chloride 98 mmol/L (98-107); Glucose 135 mg/dL (74-99); Non-African American GFR(CKD) >90 (>60 ml/min/1.73 sqM); Potassium 5.1 mmol/L (3.5-5.1); Sodium 127 mmol/L (137-145); Total Protein 5.1 g/dL (6.3-8.2)
[2021-01-24 23:24] LABS: Eosinophils # (M) 0.04 k/uL (0-0.7); Lymphocytes # (M) 1.23 k/uL (1.0-4.8); Monocytes # (M) 0.31 k/uL (0-1.0); Neutrophils # (M) 2.82 k/uL (1.3-7.7); Neutrophils % (M) 64 %; Nucleated Red Blood Cells 0 /100 WBC (0-0); Total Cells Counted 100
[2021-01-24 23:26] LABS: Anisocytosis (M) Present; Platelet Count 93 k/uL (150-450); Polychromasia Present
[2021-01-24] MEDS: MORPHINE SULFATE 4 MG/ML SYRINGE IVP PRN (23:34)
--- NOTE | 2021-01-24 23:38 | XR ---
EXAMINATION TYPE: XR chest 2V DATE OF EXAM: 01/24/2021 COMPARISON: 12/31/2020 HISTORY: Fever TECHNIQUE: 2 views FINDINGS: There is some bilateral diffuse pulmonary infiltrate. Heart size is fairly normal.. Pulmona ry vascularity difficult to evaluate because of the lung disease. There is slight blunting of the cos tophrenic angles. The bony thorax is intact. IMPRESSION: Pulmonary infiltrates are mostly interstitial and appears slightly worse than last exam. This evidence for significant interstitial fibrosis. Acute pneumonia is possible on the left side.
[2021-01-25 05:53] LABS: Appearance,Urine Clear (Clear); Bacteria,Urine Occasional /hpf; Bilirubin,Urine Negative (Negative); Blood,Urine Large (Negative); Color,Urine Yellow; Glucose,Urine (UA) Negative (Negative); Ketones,Urine Negative (Negative); Leukocyte Esterase,Urine Moderate (Negative); Mucus,Urine Rare /hpf; Nitrite,Urine Positive (Negative); PH, Urine 7.5 (5.0-8.0); Protein,Urine Negative (Negative); RBC,Urine 43 /hpf (0-5); Specific Gravity,Urine 1.008 (1.001-1.035); Urobilinogen,Urine <2.0 mg/dL (<2.0); WBC,Urine 45 /hpf (0-5)
[2021-01-25 07:29] LABS: Glucose,Whole Blood 104 mg/dL (75-99)
[2021-01-25] MEDS ORDERED: cycloSPORINE 0.05% OPHTH 0.4 ML DROPERETTE BOTH EYES PRN (07:41)
[2021-01-25] MEDS ORDERED: ONDANSETRON 4 MG TAB PO PRN (07:41)
[2021-01-25] MEDS ORDERED: NITROGLYCERIN SL TABS 0.4 MG TAB SUBLINGUAL PRN (07:41)
[2021-01-25] MEDS ORDERED: LOPERAMIDE 2 MG CAP PO PRN (07:41)
[2021-01-25] MEDS ORDERED: NON FORMULARY DRUG (Carboxymethylcellulose Sodium [Refresh Tears] 15 ML Drops) BOTH EYES PRN (07:41)
[2021-01-25] MEDS ORDERED: guaiFENesin 600 MG TABLET.ER PO PRN (07:41)
[2021-01-25] MEDS ORDERED: ALBUTEROL HFA INHALER INHALATION PRN (07:41)
[2021-01-25] MEDS: CHOLECALCIFEROL 25 MCG (1000 IU) TABLET PO SCH (08:29)
[2021-01-25] MEDS: MULTIVITAMINS, THERA 1 EACH TAB PO SCH (08:30)
[2021-01-25] MEDS: SPIRONOLACTONE 25 MG TAB PO SCH (08:30)
[2021-01-25] MEDS: MAGNESIUM OXIDE 400 MG TAB PO SCH (08:30)
[2021-01-25] MEDS: ASPIRIN 81 MG PO SCH (08:30)
[2021-01-25] MEDS: CYANOCOBALAMIN 500 MCG TAB PO SCH (08:30)
[2021-01-25] MEDS: MIDODRINE 5 MG TAB PO SCH ×3 (08:30→18:02)
[2021-01-25] MEDS: lamoTRIgine 100 MG TAB PO SCH ×2 (08:30→21:03)
[2021-01-25] MEDS: DIGOXIN 62.5 MCG TAB PO SCH (08:31)
[2021-01-25] MEDS: DILTIAZEM ORAL 60 MG TAB PO SCH ×3 (08:31→21:02)
[2021-01-25] MEDS: PYRIDOSTIGMINE 60 MG TAB PO SCH ×5 (08:31→23:32)
[2021-01-25] MEDS: VITAMIN E (DL,TOCOPHERYL ACET) 400 UNIT (180 MG) CAP PO SCH (08:31)
[2021-01-25] MEDS: FLUTICASONE 50MCG/SPRAY NASAL 16GM EA NOSTRIL SCH (08:32)
[2021-01-25] MEDS: IPRATROPIUM-ALBUTEROL 3 ML NEB INHALATION SCH ×4 (08:41→21:47)
[2021-01-25] MEDS ORDERED: NON FORMULARY DRUG (Prostat Awc 30 ML) PO SCH (09:00)
[2021-01-25 11:39] LABS: Glucose,Whole Blood 190 mg/dL (75-99)
[2021-01-25] MEDS: INSULIN ASPART (NovoLOG) 100 UNIT/ML VIAL SQ SCH ×3 (12:27→21:03)
[2021-01-25] MEDS: METOPROLOL TARTRATE 25 MG TAB PO SCH ×2 (15:07→21:18)
[2021-01-25] MEDS: AMPICILLIN-SULBACTAM 3 GM in SODIUM CHLORIDE 0.9% 100 ML IVPB SCH ×2 (15:07→21:03)
[2021-01-25 16:36] LABS: Glucose,Whole Blood 139 mg/dL (75-99)
--- NOTE | 2021-01-25 17:20 | P.HPIM ---
History of Present Illness H&P Date: 01/25/21 Duke Sánchez, is a 75 year old male who presented to [facility] emergency room with a chief complaint of bilateral lower extremity swelling erythema and tenderness He was evaluated in the emergency room vital examination on presentation revealed a temperature of 98.2 pulse 133 respiration 18 blood pressure 117/62 pulse ox 96% on 4 L nasal cannula Laboratory data reveals sodium was low at 127 BUN 18 creatinine 0.59 alkaline phosphatase 213 white blood count count 4.4 hemoglobin 10.0 platelet count low at 93 Testing in the emergency room revealed chest x-ray revealed interstitial pulmonary infiltrate suggestive of interstitial fibrosis, with possible left lower lobe pneumonia, EKG revealed atrial flutter with 21 conduction with a heart rate of 129 Patient was admitted to medical floor for further evaluation and treatment Past medical history is significant for Congestive Heart Failure, COPD, history of insulin-dependent Diabetes Mellitus, history of stroke, Hyperlipidemia, Hypertension, Liver Disease, Memory Impairment, Pneumonia, Prostate Disorder, Seizure Disorder, obstructive sleep apnea maintained on CPAP, history of benign prostatic hypertrophy, gastroesophageal reflux disease, history of chronic hepatitis C, history of esophageal viruses with multiple episodes of bleeding in the past, history of myasthenia gravis and history of depression Past Medical History Past Medical History: Heart Failure, COPD, CVA/TIA, Diabetes Mellitus, Eye Disorder, GERD/Reflux, Hearing Disorder / Deafness, Hyperlipidemia, Hypertension , Liver Disease, Memory Impairment, Pneumonia, Prostate Disorder, Seizure Disorder, Sleep Apnea/CPAP/BIPAP, Thyroid Disorder Additional Past Medical History / Comment(s): Pulmonary fibrosis, COPD, diabetes mellitus, photophobia, impaired hearing, hyperlipidemia, hypertension, liver cirrhosis, BPH, peripheral neuropathy, chronic back pain, chronic cervical pain, difficulty with swallowing, myasthenia gravis, chronic constipation, chronic anemia, history of esophageal and gastric varices related to chronic liver disease, splenomegaly, obstructive sleep apnea and the patient has not been utilizing CPAP treatment. Last Myocardial Infarction Date:: 1989 History of Any Multi-Drug Resistant Organisms: VRE Date of last positivie culture/infection: 05/09/18 MDRO Source:: VRE URINE Past Surgical History: Heart Catheterization, Hernia Repair, Orthopedic Surgery, Tonsillectomy Additional Past Surgical History / Comment(s): EGDs/colonoscopies, RT GREAT TOE JOINT replaced, RT SHOULDER rotator cuff repair. rt and left cataract removals with lens implants, bilateral inguinal hernia repairs & hydrocele repair Past Anesthesia/Blood Transfusion Reactions: Motion Sickness Additional Past Anesthesia/Blood Transfusion Reaction / Comment(s): no hx blood transfusion Past Psychological History: Depression Additional Psychological History / Comment(s): Pt now has his son and son's spouse and 6 children living with him. He uses a cane to ambulate or a walker or scooter. Drives when he feels up to it. He has his son push him in a wheelchair to appts. 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 He has home oxygen and a glucometer. Smoking Status: Former smoker Past Alcohol Use History: None Reported Additional Past Alcohol Use History / Comment(s): quit smoking approx 50 yrs ago,smoked in -very short time and little amount Past Drug Use History: None Reported - Past Family History Mother Family Medical History: Liver Disease, Pneumonia Additional Family Medical History / Comment(s): alcoholism Father Family Medical History: Cancer Additional Family Medical History / Comment(s): Father had lung cancer with mets to brain. He was a nonsmoker but his spouse smoked in the house. Medications and Allergies Home Medications Medication Instructions Recorded Confirmed Type Finasteride [Proscar] 5 mg PO HS 04/14/15 01/24/21 History Pyridostigmine [place] [Mestinon] 60 mg PO Q4H 04/04/17 01/24/21 History Pantoprazole Sodium [Protonix] 40 mg PO DAILY@0600 08/02/17 01/24/21 History lamoTRIgine [LaMICtal] 100 mg PO Q12H 08/02/17 01/24/21 History Albuterol Sulfate [Proair Hfa] 1 puff INHALATION RT-Q4H PRN 10/25/18 01/24/21 History Cholecalciferol [Vitamin D3 (25 25 mcg PO DAILY 10/25/18 01/24/21 History Mcg = 1000 Iu)] lamiVUDine 300 mg PO HS 10/25/18 01/24/21 History Cyanocobalamin [Vitamin B-12] 500 mcg PO DAILY 05/09/19 01/24/21 History Loperamide [Imodium] 4 mg PO TID PRN 05/09/19 01/24/21 History Multivitamins, Thera [Multivitamin 1 tab PO DAILY 05/09/19 01/24/21 History (formulary)] Vitamin E (Dl,Tocopheryl Acet) 1,000 unit PO DAILY 05/09/19 01/24/21 History [Vitamin E] Carboxymethylcellulose Sodium 1 drop BOTH EYES DAILY PRN 12/27/20 01/24/21 History [Refresh Tears] Fluticasone Nasal [place] [Flonase 2 spray EA NOSTRIL DAILY 12/27/20 01/24/21 History Nasal [place]] Spironolactone [Aldactone] 75 mg PO DAILY 12/27/20 01/24/21 History cycloSPORINE 0.05% OPHTH SOLN 1 drop BOTH EYES BID PRN 12/27/20 01/24/21 History [Restasis] guaiFENesin [Mucinex] 1,200 mg PO Q12H PRN 12/27/20 01/24/21 History ondansetron HCL [Zofran] 4 mg PO Q8H PRN 12/27/20 01/24/21 History Aspirin 81 mg PO DAILY chew 01/06/21 01/24/21 Rx Ipratropium-Albuterol Nebulize 3 ml INHALATION RT-QID ml 01/06/21 01/24/21 Rx [Duoneb 0.5 mg-3 mg/3 ml Soln] Morphine Sulfate Ir [MSIR] 15 mg PO Q6HR PRN 3 Days #12 tab 01/06/21 01/24/21 Rx Digoxin [Lanoxin] 62.5 mcg PO DAILY@0600 01/24/21 01/24/21 History Diltiazem Oral [Cardizem Oral] 60 mg PO TID@0600,1400,2200 01/24/21 01/24/21 History Furosemide [Lasix] 60 mg PO DAILY@0600 01/24/21 01/24/21 History Insulin Detemir [Levemir Flextouch] 40 units SQ HS 01/24/21 01/24/21 History Insulin Lispro [humaLOG Kwikpen] See Protocol SQ ACHS@08,12,,01/24/21 01/24/21 History Magnesium Oxide [Mag-Oxide] 400 mg PO DAILY 01/24/21 01/24/21 History Metoprolol Tartrate [Lopressor] 25 mg PO TID@0600,1400,2200 01/24/21 01/24/21 History Midodrine HCl [ProAmatine] 10 mg PO AC-TID@08,12,17 01/24/21 01/24/21 History Nitroglycerin Sl Tabs [Nitrostat] 0.4 mg SL Q5M PRN 01/24/21 01/24/21 History Prostat Awc 30 ml PO DAILY 01/24/21 01/24/21 History Allergies Allergy/AdvReac Type Severity Reaction Status Date / Time methylprednisolone acetate Allergy Severe Anaphylaxis Verified 01/24/21 21:21 [From Depo-Medrol] cephalexin [From Keflex] Allergy Rash/Hives Verified 01/24/21 21:21 cyclobenzaprine Allergy Unknown Verified 01/24/21 21:21 [From Flexeril] metformin Allergy Unknown Verified 01/24/21 21:21 methylprednisolone Allergy Rash/Hives Verified 01/24/21 21:21 [From Depo-Medrol] tolterodine [From Detrol] Allergy Unknown Verified 01/24/21 21:21 duloxetine [From Cymbalta] AdvReac Intense Verified 01/24/21 21:21 Flushing gabapentin [From Neurontin] AdvReac Tremors Verified 01/24/21 21:21 polyethylene glycol AdvReac Confusion Verified 01/24/21 21:21 [From Golytely] polyethylene glycol 3350 AdvReac Confusion Verified 01/24/21 21:21 [From Golytely] potassium chloride AdvReac Confusion Verified 01/24/21 21:21 [From Golytely] pregabalin [From Lyrica] AdvReac Intense Verified 01/24/21 21:21 Flushing sodium [From Golytely] AdvReac Confusion Verified 01/24/21 21:21 sodium bicarbonate AdvReac Confusion Verified 01/24/21 21:21 [From Golytely] sodium chloride AdvReac Confusion Verified 01/24/21 21:21 [From Golytely] sodium sulfate AdvReac Confusion Verified 01/24/21 21:21 [From Golytely] sodium sulfate anhydrous AdvReac Confusion Verified 01/24/21 21:21 [From Golytely] Physical Exam Vitals: Vital Signs Temp Pulse Pulse Resp BP BP Pulse Ox 01/25/21 13:23 99.0 F 54 L 18 96/48 94 L 01/25/21 08:52 74 01/25/21 08:42 78 01/25/21 08:00 126 H 16 01/25/21 07:58 98.4 F 126 H 16 107/72 92 L 01/25/21 03:00 98.2 F 121 H 19 121/73 97 01/25/21 02:05 139 H 01/25/21 01:15 98.5 F 139 H 17 102/52 92 L 01/24/21 23:38 130 H 18 122/71 99 01/24/21 20:22 98.2 F 133 H 18 117/62 96 Intake and Output 01/24/21 01/25/21 01/25/21 22:59 06:59 14:59 Intake Total 150 Output Total 900 Balance -750 Intake: Intake, IV Titration 50 Amount Clindamycin 600 mg In 50 Dextrose 5% in Water 50 ml @ 50 mls/hr IVPB ONCE ONE Rx#:[id number] Oral 100 Output: Urine 900 Other: Voiding Method Indwelling Catheter Indwelling Catheter Weight 109.769 kg 109.769 kg In general patient is alert and oriented x 3 in no distress HEENT head normocephalic and atraumatic Neck is supple no JVD no goiter no lymphadenopathy no carotid bruit Chest examination is clear to auscultation no crackles no wheezing Cardiac exam reveals regular heart sounds S1 and S2 no gallops no murmurs Abdomen is soft nontender no organomegaly with normal bowel sounds Extremity exam reveals mild edema bilaterally with bilateral pretibial erythema Neurological examination reveals no gross focal deficits Results CBC & Chem 7: 01/24/21 22:32 01/24/21 22:32 Labs: Abnormal Lab Results - Last 24 Hours (Table) 01/24/21 01/24/21 01/25/21 Range/Units 22:32 22:32 05:00 RBC 3.56 L (4.30-5.90) m/uL Hgb 10.0 L D (13.0-17.5) gm/dL Hct 31.3 L (39.0-53.0) % RDW 18.7 H (11.5-15.5) % Plt Count 93 L (150-450) k/uL Sodium 127 L (137-145) mmol/L Creatinine 0.59 L (0.66-1.25) mg/dL Glucose 135 H (74-99) mg/dL POC Glucose (mg/dL) (75-99) mg/dL Alkaline Phosphatase 239 H (38-126) U/L Total Protein 5.1 L (6.3-8.2) g/dL Albumin 2.6 L (3.5-5.0) g/dL Urine Blood Large H (Negative) Ur Leukocyte Esterase Moderate H (Negative) Urine RBC 43 H (0-5) /hpf Urine WBC 45 H (0-5) /hpf Urine Bacteria Occasional H (None) /hpf Urine Mucus Rare H (None) /hpf 01/25/21 01/25/21 Range/Units 07:28 11:30 RBC (4.30-5.90) m/uL Hgb (13.0-17.5) gm/dL Hct (39.0-53.0) % RDW (11.5-15.5) % Plt Count (150-450) k/uL Sodium (137-145) mmol/L Creatinine (0.66-1.25) mg/dL Glucose (74-99) mg/dL POC Glucose (mg/dL) 104 H 190 H (75-99) mg/dL Alkaline Phosphatase (38-126) U/L Total Protein (6.3-8.2) g/dL Albumin (3.5-5.0) g/dL Urine Blood (Negative) Ur Leukocyte Esterase (Negative) Urine RBC (0-5) /hpf Urine WBC (0-5) /hpf Urine Bacteria (None) /hpf Urine Mucus (None) /hpf Microbiology - Last 24 Hours (Table) 01/25/21 05:00 Urine Culture - Preliminary Urine,Voided Thrombosis Risk Factor Assmnt - Choose All That Apply Any of the Below Risk Factors Present?: Yes Each Factor Represents 1 point: Abnormal pulmonary function (COPD), Medical pt on bed rest, Obesity (BMI >25), Serious lung disease incl. pneumonia (< 1month) Each Risk Factor Represents 3 Points: Age 75 years or older Thrombosis Risk Factor Assessment Total Risk Factor Score: 7 Thrombosis Risk Factor Assessment Level: High Risk Assessment and Plan Plan: Bilateral lower extremity cellulitis Atrial fibrillation with rapid ventricular response Hyponatremia sodium on presentation 127 Underlying history of insulin-dependent diabetes mellitus Underlying history of hypertension Underlying history of hyperlipidemia Underlying history of coronary artery disease Underlying history of congestive heart failure At this time patient is admitted to medical floor, he was started on IV antibiotics Infectious disease consultation and cardiology consultation were requested Home medications reviewed and reordered
[2021-01-25] MEDS: MORPHINE SULFATE IR 15 MG TABLET PO PRN (18:21)
[2021-01-25 20:36] LABS: Glucose,Whole Blood 176 mg/dL (75-99)
[2021-01-25] MEDS: FINASTERIDE 5 MG TAB PO SCH (21:02)
[2021-01-25] MEDS: LAMIVUDINE 150 MG PO SCH (21:14)
[2021-01-25] MEDS: INSULIN DETEMIR (LEVEMIR) 100 UNIT/ML SYR SQ SCH (21:18)
[2021-01-25] MEDS: MORPHINE SULFATE 4 MG/ML SYRINGE IVP PRN (21:18)
--- NOTE | 2021-01-25 22:54 | P.CONS ---
History of Present Illness - Reason for Consult Consult date: 01/25/21 Bilateral lower extremity cellulitis Requesting physician: Josr Osorio - Chief Complaint bilateral leg swelling and redness x few days - History of Present Illness Patient is a 75 male who was recently in this facility he was treated for a aspiration pneumonia sputum was positive for MSSA and was treated with Unasyn subsequent discharged home on oral Augmentin patient has not been brought back to the hospital her last night for evaluation of increasing swelling and redness to the lower extremity patient overall evaluated good historian to tell me exactly when he started apparently the patient did have chronic swelling to lower extremity and is supposed to wear compression stocking however dosing not been available patient has becomes more swollen and tender and the family member noticed erythema tracking up to the mid thigh for that reason that the patient was brought to the hospital last evening patient denies high-grade fever patient describes the pain to likely more of a dull aching to throbbing 4 to 5-10 no radiation on presentation to the hospital the patient was afebrile subsequently spiked low-grade fever of 94 9 patient did have a normal white count kidney function was normal urine is positive urine culture is pending patient did have a chest x-ray which was pulmonary failure is most interstitial slightly worse he received a dose of clindamycin in the ER subsequently has been admitted to hospital infectious disease was consulted for further management of antibiotic therapy Review of Systems Positive point has been mentioned in the HPI rest of the systems are negative Past Medical History Past Medical History: Heart Failure, COPD, CVA/TIA, Diabetes Mellitus, Eye Disorder, GERD/Reflux, Hearing Disorder / Deafness, Hyperlipidemia, Hypertension, Liver Disease, Memory Impairment, Pneumonia, Prostate Disorder, Seizure Disorder, Sleep Apnea/CPAP/BIPAP, Thyroid Disorder Additional Past Medical History / Comment(s): Pulmonary fibrosis, COPD, diabetes mellitus, photophobia, impaired hearing, hyperlipidemia, hypertension, liver cirrhosis, BPH, peripheral neuropathy, chronic back pain, chronic cervical pain, difficulty with swallowing, myasthenia gravis, chronic constipation, chronic anemia, history of esophageal and gastric varices related to chronic liver disease, splenomegaly, obstructive sleep apnea and the patient has not been utilizing CPAP treatment. Last Myocardial Infarction Date:: 1989 History of Any Multi-Drug Resistant Organisms: VRE Year Discovered:: 05/09/18 MDRO Source:: VRE URINE Past Surgical History: Heart Catheterization, Hernia Repair, Orthopedic Surgery, Tonsillectomy Additional Past Surgical History / Comment(s): EGDs/colonoscopies, RT GREAT TOE JOINT replaced, RT SHOULDER rotator cuff repair. rt and left cataract removals with lens implants, bilateral inguinal hernia repairs & hydrocele repair Past Anesthesia/Blood Transfusion Reactions: Motion Sickness Additional Past Anesthesia/Blood Transfusion Reaction / Comm: no hx blood transfusion Past Psychological History: Depression Additional Psychological History / Comment(s): Pt now has his son and son's spouse and 6 children living with him. He uses a cane to ambulate or a walker or scooter. Drives when he feels up to it. He has his son push him in a wheelchair to appts. 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 He has home oxygen and a glucometer. Smoking Status: Former smoker Past Alcohol Use History: None Reported Additional Past Alcohol Use History / Comment(s): quit smoking approx 50 yrs ago,smoked in -very short time and little amount Past Drug Use History: None Reported - Past Family History Mother Family Medical History: Liver Disease, Pneumonia Additional Family Medical History / Comment(s): alcoholism Father Family Medical History: Cancer Additional Family Medical History / Comment(s): Father had lung cancer with mets to brain. He was a nonsmoker but his spouse smoked in the house. Medications and Allergies Home Medications Medication Instructions Recorded Confirmed Type Finasteride [Proscar] 5 mg PO HS 04/14/15 01/24/21 History Pyridostigmine [place] [Mestinon] 60 mg PO Q4H 04/04/17 01/24/21 History Pantoprazole Sodium [Protonix] 40 mg PO DAILY@0600 08/02/17 01/24/21 History lamoTRIgine [LaMICtal] 100 mg PO Q12H 08/02/17 01/24/21 History Albuterol Sulfate [Proair Hfa] 1 puff INHALATION RT-Q4H PRN 10/25/18 01/24/21 History Cholecalciferol [Vitamin D3 (25 25 mcg PO DAILY 10/25/18 01/24/21 History Mcg = 1000 Iu)] lamiVUDine 300 mg PO HS 10/25/18 01/24/21 History Cyanocobalamin [Vitamin B-12] 500 mcg PO DAILY 05/09/19 01/24/21 History Loperamide [Imodium] 4 mg PO TID PRN 05/09/19 01/24/21 History Multivitamins, Thera [Multivitamin 1 tab PO DAILY 05/09/19 01/24/21 History (formulary)] Vitamin E (Dl,Tocopheryl Acet) 1,000 unit PO DAILY 05/09/19 01/24/21 History [Vitamin E] Carboxymethylcellulose Sodium 1 drop BOTH EYES DAILY PRN 12/27/20 01/24/21 History [Refresh Tears] Fluticasone Nasal [place] [Flonase 2 spray EA NOSTRIL DAILY 12/27/20 01/24/21 History Nasal [place]] Spironolactone [Aldactone] 75 mg PO DAILY 12/27/20 01/24/21 History cycloSPORINE 0.05% OPHTH SOLN 1 drop BOTH EYES BID PRN 12/27/20 01/24/21 History [Restasis] guaiFENesin [Mucinex] 1,200 mg PO Q12H PRN 12/27/20 01/24/21 History ondansetron HCL [Zofran] 4 mg PO Q8H PRN 12/27/20 01/24/21 History Aspirin 81 mg PO DAILY chew 01/06/21 01/24/21 Rx Ipratropium-Albuterol Nebulize 3 ml INHALATION RT-QID ml 01/06/21 01/24/21 Rx [Duoneb 0.5 mg-3 mg/3 ml Soln] Morphine Sulfate Ir [MSIR] 15 mg PO Q6HR PRN 3 Days #12 tab 01/06/21 01/24/21 Rx Digoxin [Lanoxin] 62.5 mcg PO DAILY@0600 01/24/21 01/24/21 History Diltiazem Oral [Cardizem Oral] 60 mg PO TID@0600,1400,2200 01/24/21 01/24/21 History Furosemide [Lasix] 60 mg PO DAILY@0600 01/24/21 01/24/21 History Insulin Detemir [Levemir Flextouch] 40 units SQ HS 01/24/21 01/24/21 History Insulin Lispro [humaLOG Kwikpen] See Protocol SQ ACHS@08,12,,01/24/21 01/24/21 History Magnesium Oxide [Mag-Oxide] 400 mg PO DAILY 01/24/21 01/24/21 History Metoprolol Tartrate [Lopressor] 25 mg PO TID@0600,1400,2200 01/24/21 01/24/21 History Midodrine HCl [ProAmatine] 10 mg PO AC-TID@08,12,17 01/24/21 01/24/21 History Nitroglycerin Sl Tabs [Nitrostat] 0.4 mg SL Q5M PRN 01/24/21 01/24/21 History Prostat Awc 30 ml PO DAILY 01/24/21 01/24/21 History Allergies Allergy/AdvReac Type Severity Reaction Status Date / Time methylprednisolone acetate Allergy Severe Anaphylaxis Verified 01/24/21 21:21 [From Depo-Medrol] cephalexin [From Keflex] Allergy Rash/Hives Verified 01/24/21 21:21 cyclobenzaprine Allergy Unknown Verified 01/24/21 21:21 [From Flexeril] metformin Allergy Unknown Verified 01/24/21 21:21 methylprednisolone Allergy Rash/Hives Verified 01/24/21 21:21 [From Depo-Medrol] tolterodine [From Detrol] Allergy Unknown Verified 01/24/21 21:21 duloxetine [From Cymbalta] AdvReac Intense Verified 01/24/21 21:21 Flushing gabapentin [From Neurontin] AdvReac Tremors Verified 01/24/21 21:21 polyethylene glycol AdvReac Confusion Verified 01/24/21 21:21 [From Golytely] polyethylene glycol 3350 AdvReac Confusion Verified 01/24/21 21:21 [From Golytely] potassium chloride AdvReac Confusion Verified 01/24/21 21:21 [From Golytely] pregabalin [From Lyrica] AdvReac Intense Verified 01/24/21 21:21 Flushing sodium [From Golytely] AdvReac Confusion Verified 01/24/21 21:21 sodium bicarbonate AdvReac Confusion Verified 01/24/21 21:21 [From Golytely] sodium chloride AdvReac Confusion Verified 01/24/21 21:21 [From Golytely] sodium sulfate AdvReac Confusion Verified 01/24/21 21:21 [From Golytely] sodium sulfate anhydrous AdvReac Confusion Verified 01/24/21 21:21 [From Golytely] Physical Exam Vitals: Vital Signs Temp Pulse Pulse Resp BP BP Pulse Ox 01/25/21 16:31 78 01/25/21 16:22 76 01/25/21 13:23 99.0 F 54 L 18 96/48 94 L 01/25/21 08:52 74 01/25/21 08:42 78 01/25/21 08:00 126 H 16 01/25/21 07:58 98.4 F 126 H 16 107/72 92 L 01/25/21 03:00 98.2 F 121 H 19 121/73 97 01/25/21 02:05 139 H 01/25/21 01:15 98.5 F 139 H 17 102/52 92 L 01/24/21 23:38 130 H 18 122/71 99 01/24/21 20:22 98.2 F 133 H 18 117/62 96 Intake and Output 01/25/21 01/25/21 01/25/21 06:59 14:59 22:59 Intake Total 150 Output Total 900 Balance -750 Intake: Intake, IV Titration 50 Amount Clindamycin 600 mg In 50 Dextrose 5% in Water 50 ml @ 50 mls/hr IVPB ONCE ONE Rx#:[id number] Oral 100 Output: Urine 900 Other: Voiding Method Indwelling Catheter Indwelling Catheter Weight 109.769 kg GENERAL DESCRIPTION: Elderly male lying in bed, no distress. No tachypnea or accessory muscle of respiration use. HEENT: Shows Pallor , no scleral icterus. Oral mucous membrane is dry. No pharyngeal erythema or thrush NECK: Trachea central, no thyromegaly. LUNGS: Unlabored breathing. Clear to auscultation anteriorly. No wheeze or crackle. HEART: S1, S2, regular rate and rhythm. No loud murmur ABDOMEN: Soft, no tenderness , guarding or rigidity, no organomegaly EXTREMITIES: Bilateral lower extremity with diffuse swelling and redness warmth to touch SKIN: No rash, no masses palpable. NEUROLOGICAL: The patient is awake, alert, oriented x3, mood and affect normal. Results CBC & Chem 7: 01/24/21 22:32 01/24/21 22:32 Labs: Abnormal Lab Results - Last 24 Hours (Table) 01/24/21 01/24/21 01/25/21 Range/Units 22:32 22:32 05:00 RBC 3.56 L (4.30-5.90) m/uL Hgb 10.0 L D (13.0-17.5) gm/dL Hct 31.3 L (39.0-53.0) % RDW 18.7 H (11.5-15.5) % Plt Count 93 L (150-450) k/uL Sodium 127 L (137-145) mmol/L Creatinine 0.59 L (0.66-1.25) mg/dL Glucose 135 H (74-99) mg/dL POC Glucose (mg/dL) (75-99) mg/dL Alkaline Phosphatase 239 H (38-126) U/L Total Protein 5.1 L (6.3-8.2) g/dL Albumin 2.6 L (3.5-5.0) g/dL Urine Blood Large H (Negative) Ur Leukocyte Esterase Moderate H (Negative) Urine RBC 43 H (0-5) /hpf Urine WBC 45 H (0-5) /hpf Urine Bacteria Occasional H (None) /hpf Urine Mucus Rare H (None) /hpf 01/25/21 01/25/21 01/25/21 Range/Units 07:28 11:30 16:24 RBC (4.30-5.90) m/uL Hgb (13.0-17.5) gm/dL Hct (39.0-53.0) % RDW (11.5-15.5) % Plt Count (150-450) k/uL Sodium (137-145) mmol/L Creatinine (0.66-1.25) mg/dL Glucose (74-99) mg/dL POC Glucose (mg/dL) 104 H 190 H 139 H (75-99) mg/dL Alkaline Phosphatase (38-126) U/L Total Protein (6.3-8.2) g/dL Albumin (3.5-5.0) g/dL Urine Blood (Negative) Ur Leukocyte Esterase (Negative) Urine RBC (0-5) /hpf Urine WBC (0-5) /hpf Urine Bacteria (None) /hpf Urine Mucus (None) /hpf Microbiology - Last 24 Hours (Table) 01/25/21 05:00 Urine Culture - Preliminary Urine,Voided Assessment and Plan Assessment: 1-patient with bilateral lower extremity cellulitis in this patient did have diffuse swelling and redness likely streptococcal disease clinic doubt MRSA or gram-negative infection 2-patient with cephalexin allergy that would limit the number of antibiotics safe to use (1) Bilateral lower leg cellulitis Current Visit: Yes Status: Acute Code(s): L03.116 - CELLULITIS OF LEFT LOWER LIMB; L03.115 - CELLULITIS OF RIGHT LOWER LIMB SNOMED Code(s): 927966250 Plan: 1-Pasha the area of the redness 2-Michael wrap to the leg from just above the toe to below the knee 3-we will start the patient on Unasyn 3 g every 6 hours We will follow on clinical condition and cultures to further adjust medication if needed Thank you for this consultation we will follow the patient along with you Time with Patient: Greater than 30
[2021-01-26] MEDS: AMPICILLIN-SULBACTAM 3 GM in SODIUM CHLORIDE 0.9% 100 ML IVPB SCH ×4 (01:15→19:46)
[2021-01-26] MEDS: PYRIDOSTIGMINE 60 MG TAB PO SCH ×6 (03:49→22:09)
[2021-01-26] MEDS: METOPROLOL TARTRATE 25 MG TAB PO SCH ×3 (05:45→21:30)
[2021-01-26] MEDS: DILTIAZEM ORAL 60 MG TAB PO SCH ×3 (05:46→21:30)
[2021-01-26] MEDS: DIGOXIN 62.5 MCG TAB PO SCH (05:46)
[2021-01-26 06:55] LABS: Glucose,Whole Blood 90 mg/dL (75-99)
[2021-01-26] MEDS: IPRATROPIUM-ALBUTEROL 3 ML NEB INHALATION SCH ×4 (06:59→18:53)
[2021-01-26] MEDS: lamoTRIgine 100 MG TAB PO SCH ×2 (08:12→19:46)
[2021-01-26] MEDS: MIDODRINE 5 MG TAB PO SCH ×3 (08:12→16:20)
[2021-01-26] MEDS: INSULIN ASPART (NovoLOG) 100 UNIT/ML VIAL SQ SCH ×4 (08:13→21:30)
[2021-01-26] MEDS: PANTOPRAZOLE 40 MG TABLET PO SCH (08:13)
[2021-01-26] MEDS: MORPHINE SULFATE IR 15 MG TABLET PO PRN (08:22)
--- NOTE | 2021-01-26 08:31 | P.CNPUL ---
History of Present Illness Consult date: 01/26/21 Reason for consult: dyspnea, cough, hypoxemia Chief complaint: Shortness of breath History of present illness: Patient is a 75-year-old male well-known to me patient admitted into the hospital with swelling and cellulitis of the lower extremity, patient has a long-standing history of congestive heart failure, developed cellulitis which has been marked patient remains on broad-spectrum antibiotics, patient has multiple ALLERGIES and COPD as well, also has issues associated with the BPH, GERD, COPD, congestive heart failure, history of multiple CVAs and TIAs, memory impairment, recent pneumonia as well as sleep disorder breathing and sleep apnea, patient finished therapy of the aspiration pneumonia, her sputum cleared him is positive for MSSA patient was discharged on oral Augmentin, patient last few days have progressive swelling of the lower extremity up to mid thigh level, the chest x-ray performed at the time admission revealed interstitial edema Review of Systems All systems: negative Past Medical History Past Medical History: Heart Failure, COPD, CVA/TIA, Diabetes Mellitus, Eye Disorder, GERD/Reflux, Hearing Disorder / Deafness, Hyperlipidemia, Hypertension, Liver Disease, Memory Impairment, Pneumonia, Prostate Disorder, Seizure Disorder, Sleep Apnea/CPAP/BIPAP, Thyroid Disorder Additional Past Medical History / Comment(s): Pulmonary fibrosis, COPD, diabetes mellitus, photophobia, impaired hearing, hyperlipidemia, hypertension, liver cirrhosis, BPH, peripheral neuropathy, chronic back pain, chronic cervical pain, difficulty with swallowing, myasthenia gravis, chronic constipation, chronic anemia, history of esophageal and gastric varices related to chronic liver disease, splenomegaly, obstructive sleep apnea and the patient has not been utilizing CPAP treatment. Last Myocardial Infarction Date:: 1989 History of Any Multi-Drug Resistant Organisms: VRE Date of last positivie culture/infection: 05/09/18 MDRO Source:: VRE URINE Past Surgical History: Heart Catheterization, Hernia Repair, Orthopedic Surgery, Tonsillectomy Additional Past Surgical History / Comment(s): EGDs/colonoscopies, RT GREAT TOE JOINT replaced, RT SHOULDER rotator cuff repair. rt and left cataract removals with lens implants, bilateral inguinal hernia repairs & hydrocele repair Past Anesthesia/Blood Transfusion Reactions: Motion Sickness Additional Past Anesthesia/Blood Transfusion Reaction / Comment(s): no hx blood transfusion Past Psychological History: Depression Additional Psychological History / Comment(s): Pt now has his son and son's spouse and 6 children living with him. He uses a cane to ambulate or a walker or scooter. Drives when he feels up to it. He has his son push him in a wheelchair to appts. 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 He has home oxygen and a glucometer. Smoking Status: Former smoker Past Alcohol Use History: None Reported Additional Past Alcohol Use History / Comment(s): quit smoking approx 50 yrs ago,smoked in -very short time and little amount Past Drug Use History: None Reported - Past Family History Mother Family Medical History: Liver Disease, Pneumonia Additional Family Medical History / Comment(s): alcoholism Father Family Medical History: Cancer Additional Family Medical History / Comment(s): Father had lung cancer with mets to brain. He was a nonsmoker but his spouse smoked in the house. Medications and Allergies Home Medications Medication Instructions Recorded Confirmed Type Finasteride [Proscar] 5 mg PO HS 04/14/15 01/24/21 History Pyridostigmine [place] [Mestinon] 60 mg PO Q4H 04/04/17 01/24/21 History Pantoprazole Sodium [Protonix] 40 mg PO DAILY@0600 08/02/17 01/24/21 History lamoTRIgine [LaMICtal] 100 mg PO Q12H 08/02/17 01/24/21 History Albuterol Sulfate [Proair Hfa] 1 puff INHALATION RT-Q4H PRN 10/25/18 01/24/21 History Cholecalciferol [Vitamin D3 (25 25 mcg PO DAILY 10/25/18 01/24/21 History Mcg = 1000 Iu)] lamiVUDine 300 mg PO HS 10/25/18 01/24/21 History Cyanocobalamin [Vitamin B-12] 500 mcg PO DAILY 05/09/19 01/24/21 History Loperamide [Imodium] 4 mg PO TID PRN 05/09/19 01/24/21 History Multivitamins, Thera [Multivitamin 1 tab PO DAILY 05/09/19 01/24/21 History (formulary)] Vitamin E (Dl,Tocopheryl Acet) 1,000 unit PO DAILY 05/09/19 01/24/21 History [Vitamin E] Carboxymethylcellulose Sodium 1 drop BOTH EYES DAILY PRN 12/27/20 01/24/21 History [Refresh Tears] Fluticasone Nasal [place] [Flonase 2 spray EA NOSTRIL DAILY 12/27/20 01/24/21 History Nasal [place]] Spironolactone [Aldactone] 75 mg PO DAILY 12/27/20 01/24/21 History cycloSPORINE 0.05% OPHTH SOLN 1 drop BOTH EYES BID PRN 12/27/20 01/24/21 History [Restasis] guaiFENesin [Mucinex] 1,200 mg PO Q12H PRN 12/27/20 01/24/21 History ondansetron HCL [Zofran] 4 mg PO Q8H PRN 12/27/20 01/24/21 History Aspirin 81 mg PO DAILY chew 01/06/21 01/24/21 Rx Ipratropium-Albuterol Nebulize 3 ml INHALATION RT-QID ml 01/06/21 01/24/21 Rx [Duoneb 0.5 mg-3 mg/3 ml Soln] Morphine Sulfate Ir [MSIR] 15 mg PO Q6HR PRN 3 Days #12 tab 01/06/21 01/24/21 Rx Digoxin [Lanoxin] 62.5 mcg PO DAILY@0600 01/24/21 01/24/21 History Diltiazem Oral [Cardizem Oral] 60 mg PO TID@0600,1400,2200 01/24/21 01/24/21 History Furosemide [Lasix] 60 mg PO DAILY@0600 01/24/21 01/24/21 History Insulin Detemir [Levemir Flextouch] 40 units SQ HS 01/24/21 01/24/21 History Insulin Lispro [humaLOG Kwikpen] See Protocol SQ ACHS@08,,,01/24/21 01/24/21 History Magnesium Oxide [Mag-Oxide] 400 mg PO DAILY 01/24/21 01/24/21 History Metoprolol Tartrate [Lopressor] 25 mg PO TID@0600,1400,2200 01/24/21 01/24/21 History Midodrine HCl [ProAmatine] 10 mg PO AC-TID@08,12,01/24/21 01/24/21 History Nitroglycerin Sl Tabs [Nitrostat] 0.4 mg SL Q5M PRN 01/24/21 01/24/21 History Prostat Awc 30 ml PO DAILY 01/24/21 01/24/21 History Allergies Allergy/AdvReac Type Severity Reaction Status Date / Time methylprednisolone acetate Allergy Severe Anaphylaxis Verified 01/24/21 21:21 [From Depo-Medrol] cephalexin [From Keflex] Allergy Rash/Hives Verified 01/24/21 21:21 cyclobenzaprine Allergy Unknown Verified 01/24/21 21:21 [From Flexeril] metformin Allergy Unknown Verified 01/24/21 21:21 methylprednisolone Allergy Rash/Hives Verified 01/24/21 21:21 [From Depo-Medrol] tolterodine [From Detrol] Allergy Unknown Verified 01/24/21 21:21 duloxetine [From Cymbalta] AdvReac Intense Verified 01/24/21 21:21 Flushing gabapentin [From Neurontin] AdvReac Tremors Verified 01/24/21 21:21 polyethylene glycol AdvReac Confusion Verified 01/24/21 21:21 [From Golytely] polyethylene glycol 3350 AdvReac Confusion Verified 01/24/21 21:21 [From Golytely] potassium chloride AdvReac Confusion Verified 01/24/21 21:21 [From Golytely] pregabalin [From Lyrica] AdvReac Intense Verified 01/24/21 21:21 Flushing sodium [From Golytely] AdvReac Confusion Verified 01/24/21 21:21 sodium bicarbonate AdvReac Confusion Verified 01/24/21 21:21 [From Golytely] sodium chloride AdvReac Confusion Verified 01/24/21 21:21 [From Golytely] sodium sulfate AdvReac Confusion Verified 01/24/21 21:21 [From Golytely] sodium sulfate anhydrous AdvReac Confusion Verified 01/24/21 21:21 [From Golytely] Physical Exam Vitals: Vital Signs Temp Pulse Pulse Resp BP Pulse Ox 01/26/21 08:00 62 18 01/26/21 07:30 98.0 F 62 18 113/64 93 L 01/26/21 07:13 80 18 01/26/21 07:00 78 18 94 L 01/26/21 05:45 90 126/67 96 01/26/21 00:58 98.6 F 63 17 109/55 100 01/26/21 00:23 78 01/26/21 00:14 78 01/25/21 19:34 98.6 F 93 16 118/65 99 01/25/21 16:31 78 01/25/21 16:22 76 01/25/21 13:23 99.0 F 54 L 18 96/48 94 L 01/25/21 08:52 74 01/25/21 08:42 78 Intake and Output 01/25/21 01/26/21 01/26/21 22:59 06:59 14:59 Output Total 1201 500 1 Balance -1201 -500 -1 Output: Urine 1200 500 Stool 1 1 Other: Voiding Method Indwelling Catheter Indwelling Catheter # Bowel Movements 1 - Constitutional General appearance: disheveled, mild distress, morbidly obese - EENT Eyes: EOMI, PERRLA Ears: bilateral: normal - Neck Neck: normal ROM Carotids: bilateral: upstroke normal Thyroid: bilateral: normal size - Respiratory Respiratory: bilateral: diminished - Cardiovascular Rhythm: regular Heart sounds: normal: S1, S2 - Gastrointestinal General gastrointestinal: normal bowel sounds, soft - Neurologic Neurologic: CNII-XII intact - Musculoskeletal Musculoskeletal: gait normal, generalized weakness, strength equal bilaterally - Psychiatric Psychiatric: A&O x's 3, appropriate affect, intact judgment & insight Results - Laboratory Findings CBC and BMP: 01/24/21 22:32 01/24/21 22:32 PT/INR, D-dimer PT 10.7 sec (9.0-12.0) 01/24/21 22:32 INR 1.0 (<1.2) 01/24/21 22:32 Abnormal lab findings: Abnormal Labs 01/24/21 01/24/21 01/25/21 22:32 22:32 05:00 RBC 3.56 L Hgb 10.0 L D Hct 31.3 L RDW 18.7 H Plt Count 93 L Sodium 127 L Creatinine 0.59 L Glucose 135 H POC Glucose (mg/dL) Alkaline Phosphatase 239 H Total Protein 5.1 L Albumin 2.6 L Urine Blood Large H Ur Leukocyte Esterase Moderate H Urine RBC 43 H Urine WBC 45 H Urine Bacteria Occasional H Urine Mucus Rare H 01/25/21 01/25/21 01/25/21 07:28 11:30 16:24 RBC Hgb Hct RDW Plt Count Sodium Creatinine Glucose POC Glucose (mg/dL) 104 H 190 H 139 H Alkaline Phosphatase Total Protein Albumin Urine Blood Ur Leukocyte Esterase Urine RBC Urine WBC Urine Bacteria Urine Mucus 01/25/21 20:30 RBC Hgb Hct RDW Plt Count Sodium Creatinine Glucose POC Glucose (mg/dL) 176 H Alkaline Phosphatase Total Protein Albumin Urine Blood Ur Leukocyte Esterase Urine RBC Urine WBC Urine Bacteria Urine Mucus - Diagnostic Findings Chest x-ray: report reviewed, image reviewed Assessment and Plan Assessment: Acute on chronic hypoxic respiratory failure related to multiple etiologies including chronic congestive heart failure, COPD Bilateral lower extremity cellulitis Acute on chronic diastolic heart failure Chronic paroxysmal atrial fibrillation with RVR Electrolyte imbalance related to hyponatremia Hypertension hypertensive cardiovascular disease Dyslipidemia coronary artery disease Plan: Overall plan is to gently diureses, remains on IV antibiotics, continue supplemental oxygen, continue deep breathing sense incentive spirometry, further plan of care as per clinical response to therapy Time with Patient: Greater than 30
[2021-01-26] MEDS: ASPIRIN 81 MG PO SCH (09:43)
[2021-01-26] MEDS: MAGNESIUM OXIDE 400 MG TAB PO SCH (09:43)
[2021-01-26] MEDS: MULTIVITAMINS, THERA 1 EACH TAB PO SCH (09:43)
[2021-01-26] MEDS: CHOLECALCIFEROL 25 MCG (1000 IU) TABLET PO SCH (09:43)
[2021-01-26] MEDS: SPIRONOLACTONE 25 MG TAB PO SCH (09:44)
[2021-01-26] MEDS: FUROSEMIDE 20 MG TAB PO SCH (09:44)
[2021-01-26] MEDS: CYANOCOBALAMIN 500 MCG TAB PO SCH (09:44)
[2021-01-26] MEDS: VITAMIN E (DL,TOCOPHERYL ACET) 400 UNIT (180 MG) CAP PO SCH (09:45)
[2021-01-26] MEDS: FLUTICASONE 50MCG/SPRAY NASAL 16GM EA NOSTRIL SCH (09:45)
--- NOTE | 2021-01-26 10:22 | P.CRDCN ---
History of Present Illness Consult date: 01/26/21 History of present illness: HISTORY OF PRESENT ILLNESS: This is a 75-year-old male with a past medical history significant for congestive heart failure, diabetes mellitus, pulmonary fibrosis, COPD with home oxygen use, and paroxysmal atrial fibrillation. Patient follows with primary care physician out of the [place] but does not follow with a camera person regularly. We have been asked to see the patient in consultation for atrial fibrillation. Patient examined at the bedside. Patient was recently hospitalized secondary to bilateral pneumonia. Patient was found to have atrial fibrillation at that time. He was initially started on anticoagulation however this was discontinued as patient was deemed high risk for anticoagulation. Patient was discharged to [facility]. He presented back to the hospital with increased lower extremity edema. He was found to have bilateral lower extremity cellulitis and was started on antibiotics. EKG reveals atrial flutter with 2-1 conduction. Telemetry currently reveals atrial fibrillation with controlled ventricular rate Chest xray pulmonary infiltrates are mostly interstitial and appears slightly worse than last exam. There is evidence for significant interstitial process. Acute pneumonia is possible in the left side. Laboratory data: WBC 4.4. Hemoglobin 10.0. Platelet count 93. Sodium 127. P otassium 5.1. BUN 18. Creatinine 0.59. Current home cardiac medications include spironolactone 75 mg daily, Midodrine 10mg TID, metoprolol tartrate 25 mg 3 times a day, Lasix 60 mg daily, Cardizem 6 0 mg 3 times a day, digoxin 62.5mcg daily, and aspirin 81mg daily Patient underwent Lexiscan stress test in 2018 which was abnormal. He subsequently underwent cardiac catheterization in [address] Herman revealing normal coronary arteries Echocardiogram completed on 12/28/2020 revealed ejection fraction 50-55%, moderate aortic stenosis, mild mitral regurgitation, and mild tricuspid regurgitation REVIEW OF SYSTEMS: At the time of my exam: CONSTITUTIONAL: Denies fever or chills. HEENT: Denies blurred vision, vision changes, or eye pain. Denies hemoptysis CARDIOVASCULAR: Denies chest pain. Denies orthopnea. Denies PND. Denies palpitations RESPIRATORY: Denies shortness of breath. GASTROINTESTINAL: Denies abdominal pain. Denies nausea or vomiting. HEMATOLOGIC: Denies bleeding disorders. GENITOURINARY: Denies any blood in urine. SKIN: Denies pruitis. Denies rash. PHYSICAL EXAM: VITAL SIGNS: Reviewed. GENERAL: Well-developed in no acute distress. HEENT: Head is normocephalic. Pupils are equal, round. Sclerae anicteric. Mucous membranes of the mouth are moist. Neck supple. No JVD or thyromegaly LUNGS: Respirations even and unlabored. Lungs diminished bilaterally. HEART: Regular rate and rhythm. S1 and S2 heard. ABDOMEN: Soft. Nondistended. Nontender. EXTREMITIES: Normal range of motion. No clubbing or cyanosis. Peripheral pulses intact. Bilateral lower extremity edema present. NEUROLOGIC: Awake and alert. Oriented x 3. ASSESSMENT: Lower extremity cellulitis Paroxysmal atrial fibrillation with RVR, not on long-term anticoagulation Recent hospitalization for bilateral pneumonia and sepsis Pulmonary fibrosis with home oxygen use Chronic diastolic congestive heart failure Hypertension Hyponatremia Valvular heart disease PLAN: No need to repeat echocardiogram as this was performed last month Continue telemetry monitoring. Patient is currently in atrial fibrillation with controlled ventricular rate. No need to adjust cardiac medications at this time No further inpatient recommendations from a cardiac standpoint. We will sign off. Please reconsult if needed. Nurse practitioner note has been reviewed by physician. Signing provider agrees with the documented findings, assessment, and plan of care. Past Medical History Past Medical History: Heart Failure, COPD, CVA/TIA, Diabetes Mellitus, Eye Disorder, GERD/Reflux, Hearing Disorder / Deafness, Hyperlipidemia, Hypertension, Liver Disease, Memory Impairment, Pneumonia, Prostate Disorder, Seizure Disorder, Sleep Apnea/CPAP/BIPAP, Thyroid Disorder Additional Past Medical History / Comment(s): Pulmonary fibrosis, COPD, diabetes mellitus, photophobia, impaired hearing, hyperlipidemia, hypertension, liver cirrhosis, BPH, peripheral neuropathy, chronic back pain, chronic cervical pain, difficulty with swallowing, myasthenia gravis, chronic constipation, chronic anemia, history of esophageal and gastric varices related to chronic liver disease, splenomegaly, obstructive sleep apnea and the patient has not been uti lizing CPAP treatment. Last Myocardial Infarction Date:: 1989 History of Any Multi-Drug Resistant Organisms: VRE Date of last positivie culture/infection: 05/09/18 MDRO Source:: VRE URINE Past Surgical History: Heart Catheterization, Hernia Repair, Orthopedic Surgery, Tonsillectomy Additional Past Surgical History / Comment(s): EGDs/colonoscopies, RT GREAT TOE JOINT replaced, RT SHOULDER rotator cuff repair. rt and left cataract removals with lens implants, bilateral inguinal hernia repairs & hydrocele repair Past Anesthesia/Blood Transfusion Reactions: Motion Sickness Additional Past Anesthesia/Blood Transfusion Reaction / Comment(s): no hx blood transfusion Past Psychological History: Depression Additional Psychological History / Comment(s): Pt now has his son and son's spouse and 6 children living with him. He uses a cane to ambulate or a walker or scooter. Drives when he feels up to it. He has his son push him in a wheelchair to appts. 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 He has home oxygen and a glucometer. Smoking Status: Former smoker Past Alcohol Use History: None Reported Additional Past Alcohol Use History / Comment(s): quit smoking approx 50 yrs ago,smoked in [email or web address]-very short time and little amount Past Drug Use History: None Reported - Past Family History Mother Family Medical History: Liver Disease, Pneumonia Additional Family Medical History / Comment(s): alcoholism Father Family Medical History: Cancer Additional Family Medical History / Comment(s): Father had lung cancer with mets to brain. He was a nonsmoker but his spouse smoked in the house. Medications and Allergies Home Medications Medication Instructions Recorded Confirmed Type Finasteride [Proscar] 5 mg PO HS 04/14/15 01/24/21 History Pyridostigmine [place] [Mestinon] 60 mg PO Q4H 04/04/17 01/24/21 History Pantoprazole Sodium [Protonix] 40 mg PO DAILY@0600 08/02/17 01/24/21 History lamoTRIgine [LaMICtal] 100 mg PO Q12H 08/02/17 01/24/21 History Albuterol Sulfate [Proair Hfa] 1 puff INHALATION RT-Q4H PRN 10/25/18 01/24/21 History Cholecalciferol [Vitamin D3 (25 25 mcg PO DAILY 10/25/18 01/24/21 History Mcg = 1000 Iu)] lamiVUDine 300 mg PO HS 10/25/18 01/24/21 History Cyanocobalamin [Vitamin B-12] 500 mcg PO DAILY 05/09/19 01/24/21 History Loperamide [Imodium] 4 mg PO TID PRN 05/09/19 01/24/21 History Multivitamins, Thera [Multivitamin 1 tab PO DAILY 05/09/19 01/24/21 History (formulary)] Vitamin E (Dl,Tocopheryl Acet) 1,000 unit PO DAILY 05/09/19 01/24/21 History [Vitamin E] Carboxymethylcellulose Sodium 1 drop BOTH EYES DAILY PRN 12/27/20 01/24/21 History [Refresh Tears] Fluticasone Nasal [place] [Flonase 2 spray EA NOSTRIL DAILY 12/27/20 01/24/21 History Nasal [place]] Spironolactone [Aldactone] 75 mg PO DAILY 12/27/20 01/24/21 History cycloSPORINE 0.05% OPHTH SOLN 1 drop BOTH EYES BID PRN 12/27/20 01/24/21 History [Restasis] guaiFENesin [Mucinex] 1,200 mg PO Q12H PRN 12/27/20 01/24/21 History ondansetron HCL [Zofran] 4 mg PO Q8H PRN 12/27/20 01/24/21 History Aspirin 81 mg PO DAILY chew 01/06/21 01/24/21 Rx Ipratropium-Albuterol Nebulize 3 ml INHALATION RT-QID ml 01/06/21 01/24/21 Rx [Duoneb 0.5 mg-3 mg/3 ml Soln] Morphine Sulfate Ir [MSIR] 15 mg PO Q6HR PRN 3 Days #12 tab 01/06/21 01/24/21 Rx Digoxin [Lanoxin] 62.5 mcg PO DAILY@0600 01/24/21 01/24/21 History Diltiazem Oral [Cardizem Oral] 60 mg PO TID@0600,1400,2200 01/24/21 01/24/21 History Furosemide [Lasix] 60 mg PO DAILY@0600 01/24/21 01/24/21 History Insulin Detemir [Levemir Flextouch] 40 units SQ HS 01/24/21 01/24/21 History Insulin Lispro [humaLOG Kwikpen] See Protocol SQ ACHS@08,12,,01/24/21 01/24/21 History Magnesium Oxide [Mag-Oxide] 400 mg PO DAILY 01/24/21 01/24/21 History Metoprolol Tartrate [Lopressor] 25 mg PO TID@0600,1400,2200 01/24/21 01/24/21 History Midodrine HCl [ProAmatine] 10 mg PO AC-TID@08,12,17 01/24/21 01/24/21 History Nitroglycerin Sl Tabs [Nitrostat] 0.4 mg SL Q5M PRN 01/24/21 01/24/21 History Prostat Awc 30 ml PO DAILY 01/24/21 01/24/21 History Allergies Allergy/AdvReac Type Severity Reaction Status Date / Time methylprednisolone acetate Allergy Severe Anaphylaxis Verified 01/24/21 21:21 [From Depo-Medrol] cephalexin [From Keflex] Allergy Rash/Hives Verified 01/24/21 21:21 cyclobenzaprine Allergy Unknown Verified 01/24/21 21:21 [From Flexeril] metformin Allergy Unknown Verified 01/24/21 21:21 methylprednisolone Allergy Rash/Hives Verified 01/24/21 21:21 [From Depo-Medrol] tolterodine [From Detrol] Allergy Unknown Verified 01/24/21 21:21 duloxetine [From Cymbalta] AdvReac Intense Verified 01/24/21 21:21 Flushing gabapentin [From Neurontin] AdvReac Tremors Verified 01/24/21 21:21 polyethylene glycol AdvReac Confusion Verified 01/24/21 21:21 [From Golytely] polyethylene glycol 3350 AdvReac Confusion Verified 01/24/21 21:21 [From Golytely] potassium chloride AdvReac Confusion Verified 01/24/21 21:21 [From Golytely] pregabalin [From Lyrica] AdvReac Intense Verified 01/24/21 21:21 Flushing sodium [From Golytely] AdvReac Confusion Verified 01/24/21 21:21 sodium bicarbonate AdvReac Confusion Verified 01/24/21 21:21 [From Golytely] sodium chloride AdvReac Confusion Verified 01/24/21 21:21 [From Golytely] sodium sulfate AdvReac Confusion Verified 01/24/21 21:21 [From Golytely] sodium sulfate anhydrous AdvReac Confusion Verified 01/24/21 21:21 [From Golytely] Physical Exam Vitals: Vital Signs Temp Pulse Pulse Resp BP Pulse Ox 01/26/21 08:00 62 18 01/26/21 07:30 98.0 F 62 18 113/64 93 L 01/26/21 07:13 80 18 01/26/21 07:00 78 18 94 L 01/26/21 05:45 90 126/67 96 01/26/21 00:58 98.6 F 63 17 109/55 100 01/26/21 00:23 78 01/26/21 00:14 78 01/25/21 19:34 98.6 F 93 16 118/65 99 01/25/21 16:31 78 01/25/21 16:22 76 01/25/21 13:23 99.0 F 54 L 18 96/48 94 L Intake and Output 01/25/21 01/26/21 01/26/21 22:59 06:59 14:59 Output Total 1201 500 1 Balance -1201 -500 -1 Output: Urine 1200 500 Stool 1 1 Other: Voiding Method Indwelling Catheter Indwelling Catheter # Bowel Movements 1 Results 01/24/21 22:32 01/24/21 22:32 Current Medications Generic Name Dose Route Start Last Admin Trade Name Martha PRN Reason Stop Dose Admin Albuterol Sulfate 1 puff 01/25/21 07:41 Albuterol Hfa Inhaler INHALATION RT-Q4H PRN Shortness Of Breath Or Wheezing Albuterol/Ipratropium 3 ml 01/25/21 08:00 01/26/21 06:59 Ipratropium-Albuterol 3 Ml Neb INHALATION 3 ml RT-QID MOISES Administration Aspirin 81 mg 01/25/21 09:00 01/26/21 09:43 Aspirin 81 Mg PO 81 mg DAILY [facility] Administration Cholecalciferol 25 mcg 01/25/21 09:00 01/26/21 09:43 Cholecalciferol 25 Mcg (1000 Iu) Tablet PO 25 mcg DAILY [facility] Administration Cyanocobalamin 500 mcg 01/25/21 09:00 01/26/21 09:44 Cyanocobalamin 500 Mcg Tab PO 500 mcg DAILY [facility] Administration Cyclosporine 1 drops 01/25/21 07:41 Cyclosporine 0.05% Ophth 0.4 Ml Droperette BOTH EYES BID PRN Dry Eye(s) Digoxin 62.5 mcg 01/26/21 06:00 01/26/21 05:46 Digoxin 62.5 Mcg Tab PO 62.5 mcg DAILY@0600 MO[facility] Administration Diltiazem HCl 60 mg 01/25/21 14:00 01/26/21 05:46 Diltiazem Oral 60 Mg Tab PO 60 mg TID@0600,1400,2200 [facility] Administration Finasteride 5 mg 01/25/21 21:00 01/25/21 21:02 Finasteride 5 Mg Tab PO 5 mg HS [facility] Administration Fluticasone Propionate 2 spray 01/25/21 09:00 01/26/21 09:45 Fluticasone 50mcg/[place] Nasal 16gm EA NOSTRIL 2 spray DAILY [facility] Administration Furosemide 60 mg 01/26/21 09:00 01/26/21 09:44 Furosemide 20 Mg Tab PO 60 mg DAILY@0900 [facility] Administration Guaifenesin 1,200 mg 01/25/21 07:41 Guaifenesin 600 Mg Tablet.Er PO Q12H PRN Cough Ampicillin Sodium/Sulbactam 100 mls @ 200 mls/hr 01/25/21 14:00 01/26/21 08:23 Sodium 3 gm/ Sodium Chloride IVPB 200 mls/hr Q6H [facility] Administration Insulin Aspart 0 unit 01/25/21 12:30 01/26/21 08:13 Insulin Aspart (Novolog) 100 Unit/Ml Vial SQ Not Given ACHS [facility] Protocol Insulin Detemir 40 unit 01/25/21 21:00 01/25/21 21:18 Insulin Detemir (Levemir) 100 Unit/Ml Syr SQ 40 unit HS [facility] Administration Lamotrigine 100 mg 01/25/21 07:45 01/26/21 08:12 Lamotrigine 100 Mg Tab PO 100 mg Q12H [facility] Administration Loperamide HCl 4 mg 01/25/21 07:41 Loperamide 2 Mg Cap PO TID PRN Diarrhea Magnesium Oxide 400 mg 01/25/21 09:00 01/26/21 09:43 Magnesium Oxide 400 Mg Tab PO 400 mg DAILY [facility] Administration Metoprolol Tartrate 25 mg 01/25/21 14:00 01/26/21 05:45 Metoprolol Tartrate 25 Mg Tab PO 25 mg TID@0600,1400,2200 [facility] Administration Midodrine 10 mg 01/25/21 08:00 01/26/21 08:12 Midodrine 5 Mg Tab PO 10 mg AC-TID@08,12,17 [facility] Administration Morphine Sulfate 4 mg 01/24/21 23:31 01/25/21 21:18 Morphine Sulfate 4 Mg/Ml Syringe IVP 4 mg Q4H PRN Administration Pain Morphine Sulfate 15 mg 01/25/21 07:41 01/26/21 08:22 Morphine Sulfate Ir 15 Mg Tablet PO 15 mg Q6HR PRN Administration Pain Multivitamins 1 each 01/25/21 09:00 01/26/21 09:43 Multivitamins, Thera 1 Each Tab PO 1 each DAILY [facility] Administration Naloxone HCl 0.2 mg 01/24/21 22:59 Naloxone 0.4 Mg/Ml 1 Ml Vial IV Q2M PRN Opioid Reversal Nitroglycerin 0.4 mg 01/25/21 07:41 Nitroglycerin Sl Tabs 0.4 Mg Tab SUBLINGUAL Q5M PRN Chest Pain Non-Formulary Medication 300 mg 01/25/21 21:00 01/25/21 21:14 Lamivudine [Lamivudine] PO Not Given HS [facility] Ondansetron HCl 4 mg 01/25/21 07:41 Ondansetron 4 Mg Tab PO Q8H PRN Nausea Pantoprazole Sodium 40 mg 01/26/21 07:30 01/26/21 08:13 Pantoprazole 40 Mg Tablet PO 40 mg DAILY@0730 [facility] Administration Pyridostigmine [place] 60 mg 01/25/21 07:45 01/26/21 08:13 Pyridostigmine 60 Mg Tab PO 60 mg Q4H [facility] Administration Spironolactone 75 mg 01/25/21 09:00 01/26/21 09:44 Spironolactone 25 Mg Tab PO 75 mg DAILY [facility] Administration Vitamin E 800 unit 01/25/21 09:00 01/26/21 09:45 Vitamin E (Dl,Tocopheryl Acet) 400 Unit (180 Mg) Cap PO 800 unit DAILY [facility] Administration Intake and Output 01/25/21 01/26/21 01/26/21 22:59 06:59 14:59 Output Total 1201 500 1 Balance -1201 -500 -1 Output: Urine 1200 500 Stool 1 1 Other: Voiding Method Indwelling Catheter Indwelling Catheter # Bowel Movements 1 01/24/21 22:32 01/24/21 22:32
[2021-01-26 11:23] LABS: Glucose,Whole Blood 121 mg/dL (75-99)
--- NOTE | 2021-01-26 12:03 | CDI ---
Documentation Clarification Form Date: 01/26/2021 11:50:35 AM From: Ginette Zepeda RN CCDS Admit Date: 01/24/2021 11:01:00 PM Patient Name: Duke Sánchez Visit Number: [id number] Discharge Date: ATTENTION: The Clinical Documentation Specialists (CDI) and [facility] Coding Staff appreciate your assistance in clarifying documentation. Please respond to the clarification below the line at the bottom and electronically sign. The CDI & [facility] Coding staff will review the response and follow-up if needed. Please note: Queries are made part of the Legal Health Record. If you have any questions, please contact the author of this message via ITS. Dr. Josr Osorio Conflicting documentation has been found in the medical record. As attending physician, please provide clarification. Acute on chronic diastolic heart failure, Pulmonology consult, 01/26. Chronic diastolic congestive heart failure, Cardiology consult, 01/26. History/Risk Factors:75-year-old male presents to the ED with bilateral lower extremity swelling, tenderness and erythema. Medical History: CHF, HTN, COPD and DM. Clinical Indicators: CXR: 01/24 Pulmonary infiltrates are mostly interstitial and appears slightly worse than last exam. Extremity Exam: 01/25 H&P Extremity exam reveals mild edema bilaterally with bilateral pretibial erythema. Chest Exam: 01/25 H&P Chest examination is clear to auscultation no crackles or wheezing. Treatment: 01/26 Lasix 60mg PO Daily MOISES to current; 01/25 Lopressor 25mg PO TID [facility]IS[facility] to current; 01/25 Aldactone 75mg PO Daily [facility] to current. Please clarify which diagnosis is most appropriate: [ ] Acute on chronic diastolic heart failure [ ] Chronic diastolic congestive heart failure [ ] Other (please specify) [ ] Unable to determine (Template Last Revised: August 2020) Chronic diastolic congestive heart failure MTDD
--- NOTE | 2021-01-26 12:18 | CDI ---
Documentation Clarification Form Date: 01/26/2021 12:04:53 PM From: Ginette Zepeda RN CCDS Admit Date: 01/24/2021 11:01:00 PM Patient Name: Duke Sánchez Visit Number: [id number] Discharge Date: ATTENTION: The Clinical Documentation Specialists (CDI) and [facility] Coding Staff appreciate your assistance in clarifying documentation. Please respond to the clarification below the line at the bottom and electronically sign. The CDI & [facility] Coding staff will review the response and follow-up if needed. Please note: Queries are made part of the Legal Health Record. If you have any questions, please contact the author of this message via ITS. Dr. Josr Osorio Cellulitis is documented 01/25 H&P. Additional clarification regarding the type of cellulitis is requested. History/risk factors: 75-year-old male presents to the ED with bilateral lower extremity swelling, tenderness and erythema. Medical History: DM, CHF, HTN, and COPD. Clinical Indicators: VSS: 01/24 B/P 117/62; HR 133; Temp 98.2 F Oral; RR 18; SpO2 96% 4L nasal cannula POC Glucose: 01/25 104; 190; 139; 176; 01/26 90. Extremity Exam: 01/25 H&P Extremity exam reveals mild edema bilaterally with bilateral pretibial erythema. Treatment: 01/25 Ampicillin Sodium / Sulbactam Sodium 3gm IVPB Q6H MOISES to current; 01/24 Clindamycin Phosphate 600mg IVPB X 1; 01/25 Levemir 40 Units SQ HS [facility]ISES to current. Please clarify the type of cellulitis, if known: [ ] Cellulitis due to diabetes [ ] Other, please specify: [ ] Unable to determine (Template Last Revised: August 2020) Unable to determine MTDD
[2021-01-26 12:57] LABS: Basophils # (A) 0.02 X 10*3/uL (0.00-0.10); Basophils % (A) 0.4 %; Eosinophils # (A) 0.11 X 10*3/uL (0.04-0.35); Eosinophils % (A) 2.3 %; HCT 32.7 % (39.6-50.0); HGB 9.8 g/dL (13.0-17.0); Lymphocytes # (A) 0.82 X 10*3/uL (0.90-5.00); Lymphocytes % (A) 17.4 %; MCH 26.4 pg (27.0-32.0); MCV 88.1 fL (80.0-97.0); Monocytes # (A) 0.84 X 10*3/uL (0.20-1.00); Monocytes % (A) 17.8 %; Neutrophils # (A) 2.87 X 10*3/uL (1.80-7.70); Platelet Count 124 X 10*3/uL (140-440); RBC 3.71 X 10*6/uL (4.40-5.60); RDW 19.3 % (11.5-14.5); WBC 4.71 X 10*3/uL (4.50-10.00)
[2021-01-26 16:17] LABS: Albumin 2.8 g/dL (3.80-4.90); Albumin/Globulin Ratio 1.4 (1.60-3.17); Anion Gap 7.1 mmol/L (4.00-12.00); BUN/Creat Ratio 17.14 Ratio (12.00-20.00); Calcium 8.2 mg/dL (8.7-10.3); Carbon Dioxide 23.9 mmol/L (21.6-31.8); Non-African American GFR(CKD) 92.3 (60.0-200.0); Potassium 4.7 mmol/L (3.5-5.5); Total Bilirubin 0.9 mg/dL (0.2-1.2); Total Protein 4.8 g/dL (6.2-8.2)
[2021-01-26 16:22] LABS: Glucose,Whole Blood 272 mg/dL (75-99)
[2021-01-26] MEDS: LAMIVUDINE 150 MG PO SCH (19:11)
[2021-01-26 20:49] LABS: Glucose,Whole Blood 156 mg/dL (75-99)
[2021-01-26] MEDS: INSULIN DETEMIR (LEVEMIR) 100 UNIT/ML SYR SQ SCH (21:30)
[2021-01-26] MEDS: FINASTERIDE 5 MG TAB PO SCH (21:30)
--- NOTE | 2021-01-27 05:05 | PN ---
PROGRESS NOTE DATE OF SERVICE: 01/26/2021 REASON FOR FOLLOWUP: Bilateral lower extremity cellulitis. INTERVAL HISTORY: Patient is afebrile. The patient is breathing comfortably. Overall pain and discomfort, lower extremity, slightly decreased. No chest pain, shortness of breath or cough. No abdominal pain or diarrhea. PHYSICAL EXAMINATION: Blood pressure 122/71, pulse of 80, temperature 98.7. He is 97% on 2 L nasal cannula. General description is an elderly male lying in bed in no distress. Respiratory system: Unlabored breathing, decreased breath sounds at the base. No wheeze. Heart: S1, S2. Regular rate and rhythm. Abdomen: Soft, no tenderness. Extremities: Legs: Swelling persists. Redness has slightly decreased. LABS: Hemoglobin is 9.8, white count 4.7, BUN of 12, creatinine 0.7. DIAGNOSTIC IMPRESSION AND PLAN: Patient with bilateral lower extremity cellulitis in this patient who did have diffuse swelling and redness, likely streptococcal disease. Patient clinically responding to Unasyn to continue. Michael wrap to the leg to keep the swelling down and continue supportive care. MMODL / IJN: [id number] /
[2021-01-27 06:54] LABS: Glucose,Whole Blood 120 mg/dL (75-99)
[2021-01-27] MEDS: AMPICILLIN-SULBACTAM 3 GM in SODIUM CHLORIDE 0.9% 100 ML IVPB SCH ×4 (07:10→22:03)
[2021-01-27] MEDS: PYRIDOSTIGMINE 60 MG TAB PO SCH ×5 (07:10→22:05)
[2021-01-27] MEDS: INSULIN ASPART (NovoLOG) 100 UNIT/ML VIAL SQ SCH ×4 (07:30→22:05)
[2021-01-27] MEDS: DILTIAZEM ORAL 60 MG TAB PO SCH ×3 (07:59→22:05)
[2021-01-27] MEDS: DIGOXIN 62.5 MCG TAB PO SCH (07:59)
[2021-01-27] MEDS: METOPROLOL TARTRATE 25 MG TAB PO SCH ×3 (07:59→22:04)
[2021-01-27] MEDS: MORPHINE SULFATE IR 15 MG TABLET PO PRN ×2 (08:04→15:57)
[2021-01-27] MEDS: PANTOPRAZOLE 40 MG TABLET PO SCH (08:04)
[2021-01-27] MEDS: MIDODRINE 5 MG TAB PO SCH ×3 (08:06→17:51)
[2021-01-27] MEDS: lamoTRIgine 100 MG TAB PO SCH ×2 (08:06→22:04)
[2021-01-27] MEDS: IPRATROPIUM-ALBUTEROL 3 ML NEB INHALATION SCH ×4 (08:16→21:17)
[2021-01-27] MEDS: FLUTICASONE 50MCG/SPRAY NASAL 16GM EA NOSTRIL SCH ×2 (09:47)
[2021-01-27] MEDS: ASPIRIN 81 MG PO SCH ×2 (09:48→09:53)
[2021-01-27] MEDS: CHOLECALCIFEROL 25 MCG (1000 IU) TABLET PO SCH (09:48)
[2021-01-27] MEDS: VITAMIN E (DL,TOCOPHERYL ACET) 400 UNIT (180 MG) CAP PO SCH (09:48)
[2021-01-27] MEDS: MAGNESIUM OXIDE 400 MG TAB PO SCH (09:48)
[2021-01-27] MEDS: SPIRONOLACTONE 25 MG TAB PO SCH (09:48)
[2021-01-27] MEDS: MULTIVITAMINS, THERA 1 EACH TAB PO SCH (09:49)
[2021-01-27] MEDS: CYANOCOBALAMIN 500 MCG TAB PO SCH (09:49)
[2021-01-27] MEDS: FUROSEMIDE 20 MG TAB PO SCH (09:49)
[2021-01-27 10:52] LABS: Anisocytosis Slight; HCT 35.2 % (39.0-53.0); HGB 10.9 gm/dL (13.0-17.5); Hypochromasia Moderate; MCH 27.2 pg (25.0-35.0); MCHC 31.1 g/dL (31.0-37.0); MCV 87.3 fL (80.0-100.0); Mean Platelet Volume 7.7; RBC 4.02 m/uL (4.30-5.90); RDW 18.3 % (11.5-15.5); WBC 5.1 k/uL (3.8-10.6)
[2021-01-27 10:53] LABS: Platelet Count 162 k/uL (150-450)
[2021-01-27 11:06] LABS: ALT 22 U/L (4-49); AST 55 U/L (17-59); African American GFR (CKD) >90 (>60 ml/min/1.73 sqM); Albumin 2.7 g/dL (3.5-5.0); Alkaline Phosphatase 188 U/L (38-126); Anion Gap 1 mmol/L; Blood Urea Nitrogen 14 mg/dL (9-20); Calcium 8.5 mg/dL (8.4-10.2); Carbon Dioxide 26 mmol/L (22-30); Chloride 101 mmol/L (98-107); Globulin 2.6 g/dL; Glucose 140 mg/dL (74-99); Non-African American GFR(CKD) >90 (>60 ml/min/1.73 sqM); Sodium 128 mmol/L (137-145); Total Bilirubin 0.9 mg/dL (0.2-1.3); Total Protein 5.3 g/dL (6.3-8.2)
[2021-01-27 11:11] LABS: Potassium 5.6 mmol/L (3.5-5.1)
[2021-01-27 11:30] LABS: Glucose,Whole Blood 210 mg/dL (75-99)
--- NOTE | 2021-01-27 11:49 | P.PN ---
Subjective Progress Note Date: 01/27/21 Duke Sánchez, is a 75 year old male who presented to [facility] emergency room with a chief complaint of bilateral lower extremity swelling erythema and tenderness He was evaluated in the emergency room vital examination on presentation revealed a temperature of 98.2 pulse 133 respiration 18 blood pressure 117/62 pulse ox 96% on 4 L nasal cannula Laboratory data reveals sodium was low at 127 BUN 18 creatinine 0.59 alkaline phosphatase 213 white blood count count 4.4 hemoglobin 10.0 platelet count low at 93 Testing in the emergency room revealed chest x-ray revealed interstitial pul monary infiltrate suggestive of interstitial fibrosis, with possible left lower lobe pneumonia, EKG revealed atrial flutter with 21 conduction with a heart rate of 129 Patient was admitted to medical floor for further evaluation and treatment Past medical history is significant for Congestive Heart Failure, COPD, history of insulin-dependent Diabetes Mellitus, history of stroke, Hyperlipidemia, H ypertension, Liver Disease, Memory Impairment, Pneumonia, Prostate Disorder, Seizure Disorder, obstructive sleep apnea maintained on CPAP, history of benign prostatic hypertrophy, gastroesophageal reflux disease, history of chronic hepatitis C, history of esophageal viruses with multiple episodes of bleeding in the past, history of myasthenia gravis and history of depression On 01/26/2021 Patient was seen and examined on the medical floor, he is alert and oriented x 3 in no distress, he denies any complaints there is no fever or chills no headache or dizziness no chest pain no shortness of breath no palpitation no cough no nausea or vomiting no abdominal pain no diarrhea no blood in the stools no burning with urination no frequency or urgency and no hematuria, there is no weakness or numbness in any of the extremities no change in vision speech or gait. Patient is complaining of runny nose and requesting a noses pray will add Flonase nose spray at this time he denies any other compl aints On 01/27/2021 patient is alert and oriented 3. Patient's lower extremity cellulites does appear to be improving. Patient remains on IV Unasyn. Infectious disease and pulmonary services are following. Wound care service is consulted. PT OT consulted. Social work consulted for discharge planning. at this time patient denies chest pain. Patient denies nausea vomiting or diarrhea. Patient denies any urinary burning or frequency Objective - Vital Signs Vital signs: Vital Signs Temp 98.6 F 01/27/21 07:59 Pulse 72 01/27/21 08:28 Resp 18 01/27/21 08:28 BP 114/64 01/27/21 07:59 Pulse Ox 98 01/27/21 08:16 Intake & Output 01/26/21 01/27/21 01/27/21 18:59 06:59 18:59 Output Total 1 650 Balance -1 -650 Weight 109.769 kg Output: Urine 650 Stool 1 Other: Voiding Method Indwelling Catheter Indwelling Catheter Indwelling Catheter - Exam In general patient is alert and oriented x 3 in no distress HEENT head normocephalic and atraumatic Neck is supple no JVD no goiter no lymphadenopathy no carotid bruit Chest examination is clear to auscultation no crackles no wheezing Cardiac exam reveals regular heart sounds S1 and S2 no gallops no murmurs Abdomen is soft nontender no organomegaly with normal bowel sounds Extremity exam reveals mild edema bilaterally with bilateral pretibial erythema Neurological examination reveals no gross focal deficits - Labs CBC & Chem 7: 01/27/21 10:16 01/27/21 09:18 Labs: Abnormal Lab Results - Last 24 Hours (Table) 01/26/21 01/26/21 01/26/21 Range/Units 06:43 06:43 16:19 RBC 3.71 L (4.40-5.60) X 10*6/uL Hgb 9.8 L (13.0-17.0) g/dL Hct 32.7 L (39.6-50.0) % MCH 26.4 L (27.0-32.0) pg MCHC 30.0 L (32.0-37.0) g/dL RDW 19.3 H (11.5-14.5) % Plt Count 124 L (140-440) X 10*3/uL Immature Gran # 0.05 H (0.00-0.04) X 10*3/uL Lymphocytes # 0.82 L (0.90-5.00) X 10*3/uL Sodium 133 L (135-145) mmol/L Potassium (3.5-5.1) mmol/L Creatinine (0.66-1.25) mg/dL Glucose 64 L (70-110) mg/dL POC Glucose (mg/dL) 272 H (75-99) mg/dL Calcium 8.2 L (8.7-10.3) mg/dL Alkaline Phosphatase 205 H (41-126) U/L Total Protein 4.8 L (6.2-8.2) g/dL Albumin 2.80 L (3.80-4.90) g/dL Albumin/Globulin Ratio 1.40 L (1.60-3.17) g/dL 01/26/21 01/27/21 01/27/21 Range/Units 20:48 06:52 09:18 RBC (4.40-5.60) X 10*6/uL Hgb (13.0-17.0) g/dL Hct (39.6-50.0) % MCH (27.0-32.0) pg MCHC (32.0-37.0) g/dL RDW (11.5-14.5) % Plt Count (140-440) X 10*3/uL Immature Gran # (0.00-0.04) X 10*3/uL Lymphocytes # (0.90-5.00) X 10*3/uL Sodium 128 L (135-145) mmol/L Potassium 5.6 H (3.5-5.1) mmol/L Creatinine 0.61 L (0.66-1.25) mg/dL Glucose 140 H (70-110) mg/dL POC Glucose (mg/dL) 156 H 120 H (75-99) mg/dL Calcium (8.7-10.3) mg/dL Alkaline Phosphatase 188 H (41-126) U/L Total Protein 5.3 L (6.2-8.2) g/dL Albumin 2.7 L (3.80-4.90) g/dL Albumin/Globulin Ratio (1.60-3.17) g/dL 01/27/21 01/27/21 Range/Units 10:16 11:29 RBC 4.02 L (4.40-5.60) X 10*6/uL Hgb 10.9 L (13.0-17.0) g/dL Hct 35.2 L (39.6-50.0) % MCH (27.0-32.0) pg MCHC (32.0-37.0) g/dL RDW 18.3 H (11.5-14.5) % Plt Count (140-440) X 10*3/uL Immature Gran # (0.00-0.04) X 10*3/uL Lymphocytes # (0.90-5.00) X 10*3/uL Sodium (135-145) mmol/L Potassium (3.5-5.1) mmol/L Creatinine (0.66-1.25) mg/dL Glucose (70-110) mg/dL POC Glucose (mg/dL) 210 H (75-99) mg/dL Calcium (8.7-10.3) mg/dL Alkaline Phosphatase (41-126) U/L Total Protein (6.2-8.2) g/dL Albumin (3.80-4.90) g/dL Albumin/Globulin Ratio (1.60-3.17) g/dL Microbiology - Last 24 Hours (Table) 01/24/21 22:40 Blood Culture - Preliminary Blood No Growth after 48 hours 01/24/21 22:35 Blood Culture - Preliminary Blood No Growth after 48 hours 01/25/21 05:00 Urine Culture - Preliminary Urine,Voided Gram Neg Bacilli Assessment and Plan Plan: Bilateral lower extremity cellulitis Atrial fibrillation with rapid ventricular response Hyponatremia sodium on presentation 127 Underlying history of insulin-dependent diabetes mellitus Underlying history of hypertension Underlying history of hyperlipidemia Underlying history of coronary artery disease Underlying history of congestive heart failure At this time patient is admitted to medical floor, he was started on IV antibiotics, infectious disease following Infectious disease consultation and cardiology consultation were requested Home medications reviewed and reordered
[2021-01-27 11:51] LABS: Eosinophils # (M) 0.05 k/uL (0-0.7); Lymphocytes # (M) 1.07 k/uL (1.0-4.8); Monocytes # (M) 0.92 k/uL (0-1.0); Neutrophils # (M) 3.06 k/uL (1.3-7.7); Neutrophils % (M) 60 %; Nucleated Red Blood Cells 0 /100 WBC (0-0); Total Cells Counted 100
[2021-01-27] MEDS ORDERED: SODIUM POLYSTYRENE SULFONATE 15 GM/60 ML BOTTLE PO ONE (13:13)
--- NOTE | 2021-01-27 13:16 | P.PN ---
Subjective Progress Note Date: 01/26/21 Duke Sánchez, is a 75 year old male who presented to [facility] emergency room with a chief complaint of bilateral lower extremity swelling erythema and tenderness He was evaluated in the emergency room vital examination on presentation revealed a temperature of 98.2 pulse 133 respiration 18 blood pressure 117/62 pulse ox 96% on 4 L nasal cannula Laboratory data reveals sodium was low at 127 BUN 18 creatinine 0.59 alkaline phosphatase 213 white blood count count 4.4 hemoglobin 10.0 platelet count low at 93 Testing in the emergency room revealed chest x-ray revealed interstitial pul monary infiltrate suggestive of interstitial fibrosis, with possible left lower lobe pneumonia, EKG revealed atrial flutter with 21 conduction with a heart rate of 129 Patient was admitted to medical floor for further evaluation and treatment Past medical history is significant for Congestive Heart Failure, COPD, history of insulin-dependent Diabetes Mellitus, history of stroke, Hyperlipidemia, H ypertension, Liver Disease, Memory Impairment, Pneumonia, Prostate Disorder, Seizure Disorder, obstructive sleep apnea maintained on CPAP, history of benign prostatic hypertrophy, gastroesophageal reflux disease, history of chronic hepatitis C, history of esophageal viruses with multiple episodes of bleeding in the past, history of myasthenia gravis and history of depression On 01/26/2021 Patient was seen and examined on the medical floor, he is alert and oriented x 3 in no distress, he denies any complaints there is no fever or chills no headache or dizziness no chest pain no shortness of breath no palpitation no cough no nausea or vomiting no abdominal pain no diarrhea no blood in the stools no burning with urination no frequency or urgency and no hematuria, there is no weakness or numbness in any of the extremities no change in vision speech or gait. Patient is complaining of runny nose and requesting a noses pray will add Flonase nose spray at this time he denies any other compl aints Objective - Vital Signs Vital signs: Vital Signs Temp 98.0 F 01/26/21 07:30 Pulse 62 01/26/21 08:00 Resp 18 01/26/21 08:00 BP 113/64 01/26/21 07:30 Pulse Ox 93 L 01/26/21 07:30 Intake & Output 01/25/21 01/26/21 01/26/21 18:59 06:59 18:59 Output Total 1201 500 1 Balance -1201 -500 -1 Output: Urine 1200 500 Stool 1 1 Other: Voiding Method Indwelling Catheter Indwelling Catheter Indwelling Catheter # Bowel Movements 1 - Exam In general patient is alert and oriented x 3 in no distress HEENT head normocephalic and atraumatic Neck is supple no JVD no goiter no lymphadenopathy no carotid bruit Chest examination is clear to auscultation no crackles no wheezing Cardiac exam reveals regular heart sounds S1 and S2 no gallops no murmurs Abdomen is soft nontender no organomegaly with normal bowel sounds Extremity exam reveals mild edema bilaterally with bilateral pretibial erythema Neurological examination reveals no gross focal deficits - Labs CBC & Chem 7: 01/26/21 06:43 01/26/21 06:43 Labs: Abnormal Lab Results - Last 24 Hours (Table) 01/25/21 01/25/21 01/25/21 Range/Units 11:30 16:24 20:30 POC Glucose (mg/dL) 190 H 139 H 176 H (75-99) mg/dL Microbiology - Last 24 Hours (Table) 01/24/21 22:35 Blood Culture - Preliminary Blood No Growth after 24 hours 01/24/21 22:40 Blood Culture - Preliminary Blood No Growth after 24 hours 01/25/21 05:00 Urine Culture - Preliminary Urine,Voided Assessment and Plan Plan: Bilateral lower extremity cellulitis Atrial fibrillation with rapid ventricular response Hyponatremia sodium on presentation 127 Underlying history of insulin-dependent diabetes mellitus Underlying history of hypertension Underlying history of hyperlipidemia Underlying history of coronary artery disease Underlying history of congestive heart failure At this time patient is admitted to medical floor, he was started on IV antibiotics, infectious disease following Infectious disease consultation and cardiology consultation were requested Home medications reviewed and reordered
--- NOTE | 2021-01-27 16:10 | P.PN ---
Subjective Progress Note Date: 01/27/21 Principal diagnosis: Acute on chronic hypoxic respiratory failure related to multiple etiologies including chronic congestive heart failure, COPD Bilateral lower extremity cellulitis Acute on chronic diastolic heart failure Chronic paroxysmal atrial fibrillation with RVR Electrolyte imbalance related to hyponatremia Hypertension hypertensive cardiovascular disease Dyslipidemia coronary artery disease 01/27/2021, patient seen eval examined during the rounds labs reviewed medications reviewed care plan discussed, patient remains on 2 L oxygen oxygen saturation remained stable shortness of breath stable denies any cough or sputum production, currently on broad-spectrum antibiotics for cellulitis of the legs, edema appears to be improving Patient is a 75-year-old male well-known to me patient admitted into the hospital with swelling and cellulitis of the lower extremity, patient has a long-standing history of congestive heart failure, developed cellulitis which has been marked patient remains on broad-spectrum antibiotics, patient has multiple ALLERGIES and COPD as well, also has issues associated with the BPH, GERD, COPD, congestive heart failure, history of multiple CVAs and TIAs, memory impairment, recent pneumonia as well as sleep disorder breathing and sleep apnea, patient finished therapy of the aspiration pneumonia, her sputum cleared him is positive for MSSA patient was discharged on oral Augmentin, patient last few days have progressive swelling of the lower extremity up to mid thigh level, the chest x-ray performed at the time admission revealed interstitial edema Objective - Vital Signs Vital signs: Vital Signs Temp 98.5 F 01/27/21 14:00 Pulse 116 H 01/27/21 14:00 Resp 18 01/27/21 14:00 BP 113/65 01/27/21 14:00 Pulse Ox 90 L 01/27/21 14:00 Intake & Output 01/26/21 01/27/21 01/27/21 18:59 06:59 18:59 Output Total 1 650 Balance -1 -650 Weight 109.769 kg Output: Urine 650 Stool 1 Other: Voiding Method Indwelling Catheter Indwelling Catheter Indwelling Catheter - Exam - Constitutional General appearance: disheveled, mild distress, morbidly obese - EENT Eyes: EOMI, PERRLA Ears: bilateral: normal - Neck Neck: normal ROM Carotids: bilateral: upstroke normal Thyroid: bilateral: normal size - Respiratory Respiratory: bilateral: diminished - Cardiovascular Rhythm: regular Heart sounds: normal: S1, S2 - Gastrointestinal General gastrointestinal: normal bowel sounds, soft - Neurologic Neurologic: CNII-XII intact - Musculoskeletal Musculoskeletal: gait normal, generalized weakness, strength equal bilaterally - Psychiatric Psychiatric: A&O x's 3, appropriate affect, intact judgment & insight - Labs CBC & Chem 7: 01/27/21 10:16 01/27/21 09:18 Labs: Abnormal Lab Results - Last 24 Hours (Table) 01/26/21 01/26/21 01/26/21 Range/Units 06:43 16:19 20:48 RBC (4.30-5.90) m/uL Hgb (13.0-17.5) gm/dL Hct (39.0-53.0) % RDW (11.5-15.5) % Sodium 133 L (135-145) mmol/L Potassium (3.5-5.1) mmol/L Creatinine (0.66-1.25) mg/dL Glucose 64 L (70-110) mg/dL POC Glucose (mg/dL) 272 H 156 H (75-99) mg/dL Calcium 8.2 L (8.7-10.3) mg/dL Alkaline Phosphatase 205 H (41-126) U/L Total Protein 4.8 L (6.2-8.2) g/dL Albumin 2.80 L (3.80-4.90) g/dL Albumin/Globulin Ratio 1.40 L (1.60-3.17) g/dL 01/27/21 01/27/21 01/27/21 Range/Units 06:52 09:18 10:16 RBC 4.02 L (4.30-5.90) m/uL Hgb 10.9 L (13.0-17.5) gm/dL Hct 35.2 L (39.0-53.0) % RDW 18.3 H (11.5-15.5) % Sodium 128 L (135-145) mmol/L Potassium 5.6 H (3.5-5.1) mmol/L Creatinine 0.61 L (0.66-1.25) mg/dL Glucose 140 H (70-110) mg/dL POC Glucose (mg/dL) 120 H (75-99) mg/dL Calcium (8.7-10.3) mg/dL Alkaline Phosphatase 188 H (41-126) U/L Total Protein 5.3 L (6.2-8.2) g/dL Albumin 2.7 L (3.80-4.90) g/dL Albumin/Globulin Ratio (1.60-3.17) g/dL 01/27/21 Range/Units 11:29 RBC (4.30-5.90) m/uL Hgb (13.0-17.5) gm/dL Hct (39.0-53.0) % RDW (11.5-15.5) % Sodium (135-145) mmol/L Potassium (3.5-5.1) mmol/L Creatinine (0.66-1.25) mg/dL Glucose (70-110) mg/dL POC Glucose (mg/dL) 210 H (75-99) mg/dL Calcium (8.7-10.3) mg/dL Alkaline Phosphatase (41-126) U/L Total Protein (6.2-8.2) g/dL Albumin (3.80-4.90) g/dL Albumin/Globulin Ratio (1.60-3.17) g/dL Microbiology - Last 24 Hours (Table) 01/24/21 22:40 Blood Culture - Preliminary Blood No Growth after 48 hours 01/24/21 22:35 Blood Culture - Preliminary Blood No Growth after 48 hours 01/25/21 05:00 Urine Culture - Preliminary Urine,Voided Gram Neg Bacilli Assessment and Plan Assessment: Acute on chronic hypoxic respiratory failure related to multiple etiologies including chronic congestive heart failure, COPD Bilateral lower extremity cellulitis Acute on chronic diastolic heart failure Chronic paroxysmal atrial fibrillation with RVR Electrolyte imbalance related to hyponatremia Hypertension hypertensive cardiovascular disease Dyslipidemia coronary artery disease Plan: Overall plan is to continue gently diureses, along with IV antibiotics, continue supplemental oxygen, continue deep breathing sense incentive spirometry, further plan of care as per clinical response to therapy Time with Patient: Greater than 30
[2021-01-27 16:36] LABS: Glucose,Whole Blood 137 mg/dL (75-99)
--- NOTE | 2021-01-27 18:45 | PN ---
PROGRESS NOTE DATE OF SERVICE: 01/27/2021 REASON FOR FOLLOWUP: Bilateral lower extremity cellulitis. INTERVAL HISTORY: Patient is currently afebrile. The patient is breathing comfortably, hemodynamically stable. No chest pain. No abdominal pain. No significant lower extremity. EXAMINATION: Blood pressure 113/55, temperature 98.5. He is 90% on 1 L. The patient is an elderly male lying in bed in no distress. Respiratory system: Unlabored breathing, clear to auscultation anteriorly. Heart S1, S2. Regular. Abdomen: Soft, nontender. Extremities: Overall redness and swelling decreased. LABS: Hemoglobin 10.1, white count of 5.1, BUN of 14, creatinine of 0.61. DIAGNOSTIC IMPRESSION AND PLAN: Patient with bilateral lower extremity cellulitis and did have diffuse swelling and redness, likely streptococcal disease. Patient is covered with Zosyn. To continue along. We would like to keep the swelling down. Hopefully finish therapy with oral antibiotics, continue supportive care. MMODL / IJN: [id number] /
[2021-01-27] MEDS: LAMIVUDINE 150 MG PO SCH (19:05)
[2021-01-27 20:30] LABS: Glucose,Whole Blood 190 mg/dL (75-99)
[2021-01-27] MEDS: INSULIN DETEMIR (LEVEMIR) 100 UNIT/ML SYR SQ SCH (22:05)
[2021-01-27] MEDS: FINASTERIDE 5 MG TAB PO SCH (22:05)
[2021-01-27] MEDS ORDERED: DILTIAZEM ORAL 60 MG TAB ONE (23:59)
[2021-01-27] MEDS ORDERED: DIGOXIN 62.5 MCG TAB ONE (23:59)
[2021-01-27] MEDS ORDERED: METOPROLOL TARTRATE 25 MG TAB ONE (23:59)
[2021-01-27] MEDS ORDERED: PYRIDOSTIGMINE 60 MG TAB ONE (23:59)
[2021-01-27] MEDS ORDERED: SODIUM CHLORIDE 0.9% 100 ML BAG ONE (23:59)
[2021-01-27] MEDS ORDERED: AMPICILLIN-SULBACTAM 3 GM VIAL ONE (23:59)
[2021-01-28] MEDS: PYRIDOSTIGMINE 60 MG TAB PO SCH ×6 (01:02→19:24)
[2021-01-28] MEDS: AMPICILLIN-SULBACTAM 3 GM in SODIUM CHLORIDE 0.9% 100 ML IVPB SCH ×4 (01:02→19:24)
[2021-01-28] MEDS: METOPROLOL TARTRATE 25 MG TAB PO SCH ×3 (06:22→21:11)
[2021-01-28] MEDS: DILTIAZEM ORAL 60 MG TAB PO SCH ×3 (06:22→21:10)
[2021-01-28] MEDS: DIGOXIN 62.5 MCG TAB PO SCH (06:22)
[2021-01-28 07:18] LABS: Glucose,Whole Blood 159 mg/dL (75-99)
[2021-01-28] MEDS: lamoTRIgine 100 MG TAB PO SCH ×2 (08:31→19:24)
[2021-01-28] MEDS: ASPIRIN 81 MG PO SCH (08:31)
[2021-01-28] MEDS: CHOLECALCIFEROL 25 MCG (1000 IU) TABLET PO SCH (08:31)
[2021-01-28] MEDS: MIDODRINE 5 MG TAB PO SCH ×3 (08:31→16:37)
[2021-01-28] MEDS: CYANOCOBALAMIN 500 MCG TAB PO SCH (08:31)
[2021-01-28] MEDS: MAGNESIUM OXIDE 400 MG TAB PO SCH (08:31)
[2021-01-28] MEDS: VITAMIN E (DL,TOCOPHERYL ACET) 400 UNIT (180 MG) CAP PO SCH (08:32)
[2021-01-28] MEDS: INSULIN ASPART (NovoLOG) 100 UNIT/ML VIAL SQ SCH ×4 (08:32→21:09)
[2021-01-28] MEDS: PANTOPRAZOLE 40 MG TABLET PO SCH (08:32)
[2021-01-28] MEDS: MULTIVITAMINS, THERA 1 EACH TAB PO SCH (08:33)
[2021-01-28] MEDS: FLUTICASONE 50MCG/SPRAY NASAL 16GM EA NOSTRIL SCH ×2 (08:33)
[2021-01-28] MEDS: IPRATROPIUM-ALBUTEROL 3 ML NEB INHALATION SCH ×4 (09:20→19:40)
--- NOTE | 2021-01-28 09:38 | P.PN ---
Subjective Progress Note Date: 01/28/21 Duke Sánchez, is a 75 year old male who presented to [facility] emergency room with a chief complaint of bilateral lower extremity swelling erythema and tenderness He was evaluated in the emergency room vital examination on presentation revealed a temperature of 98.2 pulse 133 respiration 18 blood pressure 117/62 pulse ox 96% on 4 L nasal cannula Laboratory data reveals sodium was low at 127 BUN 18 creatinine 0.59 alkaline phosphatase 213 white blood count count 4.4 hemoglobin 10.0 platelet count low at 93 Testing in the emergency room revealed chest x-ray revealed interstitial pul monary infiltrate suggestive of interstitial fibrosis, with possible left lower lobe pneumonia, EKG revealed atrial flutter with 21 conduction with a heart rate of 129 Patient was admitted to medical floor for further evaluation and treatment Past medical history is significant for Congestive Heart Failure, COPD, history of insulin-dependent Diabetes Mellitus, history of stroke, Hyperlipidemia, H ypertension, Liver Disease, Memory Impairment, Pneumonia, Prostate Disorder, Seizure Disorder, obstructive sleep apnea maintained on CPAP, history of benign prostatic hypertrophy, gastroesophageal reflux disease, history of chronic hepatitis C, history of esophageal viruses with multiple episodes of bleeding in the past, history of myasthenia gravis and history of depression On 01/26/2021 Patient was seen and examined on the medical floor, he is alert and oriented x 3 in no distress, he denies any complaints there is no fever or chills no headache or dizziness no chest pain no shortness of breath no palpitation no cough no nausea or vomiting no abdominal pain no diarrhea no blood in the stools no burning with urination no frequency or urgency and no hematuria, there is no weakness or numbness in any of the extremities no change in vision speech or gait. Patient is complaining of runny nose and requesting a noses pray will add Flonase nose spray at this time he denies any other compl aints. On 01/27/2021 patient is alert and oriented 3. Patient's lower extremity cellulites does appear to be improving. Patient remains on IV Unasyn. Infectious disease and pulmonary services are following. Wound care service is consulted. PT OT consulted. Social work consulted for discharge planning. at this time patient denies chest pain. Patient denies nausea vomiting or diarrhea. Patient denies any urinary burning or frequency On 01/28/2021 Patient was seen and examined on the medical floor, he is alert and oriented x 3 in no distress, he was complaining of nausea and generalized weakness this morning otherwise he denies any complaints there is no fever or chills no headache or dizziness no chest pain no shortness of breath no palpitation no cough or vomiting no abdominal pain no diarrhea no blood in the stools no burning with urination no frequency or urgency and no hematuria, there is no weakness or numbness in any of the extremities no change in vision speech or gait. Objective - Vital Signs Vital signs: Vital Signs Temp 98.6 F 01/28/21 02:03 Pulse 118 H 01/28/21 06:25 Resp 20 01/28/21 02:03 BP 123/70 01/28/21 06:25 Pulse Ox 94 L 01/28/21 02:03 Intake & Output 01/27/21 01/27/21 01/28/21 06:59 18:59 06:59 Intake Total 540 Output Total 650 1350 800 Balance -650 -810 -800 Intake: Oral 540 Output: Urine 650 1350 800 Other: Voiding Method Indwelling Catheter Indwelling Catheter Indwelling Catheter - Exam In general patient is alert and oriented x 3 in no distress HEENT head normocephalic and atraumatic Neck is supple no JVD no goiter no lymphadenopathy no carotid bruit Chest examination is clear to auscultation no crackles no wheezing Cardiac exam reveals regular heart sounds S1 and S2 no gallops no murmurs Abdomen is soft nontender no organomegaly with normal bowel sounds Extremity exam reveals mild edema bilaterally with bilateral pretibial erythema Neurological examination reveals no gross focal deficits - Labs CBC & Chem 7: 01/27/21 10:16 01/27/21 09:18 Labs: Abnormal Lab Results - Last 24 Hours (Table) 01/27/21 01/27/21 01/27/21 Range/Units 09:18 10:16 11:29 RBC 4.02 L (4.30-5.90) m/uL Hgb 10.9 L (13.0-17.5) gm/dL Hct 35.2 L (39.0-53.0) % RDW 18.3 H (11.5-15.5) % Sodium 128 L (137-145) mmol/L Potassium 5.6 H (3.5-5.1) mmol/L Creatinine 0.61 L (0.66-1.25) mg/dL Glucose 140 H (74-99) mg/dL POC Glucose (mg/dL) 210 H (75-99) mg/dL Alkaline Phosphatase 188 H (38-126) U/L Total Protein 5.3 L (6.3-8.2) g/dL Albumin 2.7 L (3.5-5.0) g/dL 01/27/21 01/27/21 Range/Units 16:34 20:29 RBC (4.30-5.90) m/uL Hgb (13.0-17.5) gm/dL Hct (39.0-53.0) % RDW (11.5-15.5) % Sodium (137-145) mmol/L Potassium (3.5-5.1) mmol/L Creatinine (0.66-1.25) mg/dL Glucose (74-99) mg/dL POC Glucose (mg/dL) 137 H 190 H (75-99) mg/dL Alkaline Phosphatase (38-126) U/L Total Protein (6.3-8.2) g/dL Albumin (3.5-5.0) g/dL Microbiology - Last 24 Hours (Table) 01/24/21 22:40 Blood Culture - Preliminary Blood No Growth after 72 hours 01/24/21 22:35 Blood Culture - Preliminary Blood No Growth after 72 hours Assessment and Plan Plan: Bilateral lower extremity cellulitis Atrial fibrillation with rapid ventricular response Hyponatremia sodium on presentation 127 Underlying history of insulin-dependent diabetes mellitus Underlying history of hypertension Underlying history of hyperlipidemia Underlying history of coronary artery disease Underlying history of congestive heart failure Poor nutritional status with moderate protein calorie malnutrition started on insure supplements At this time patient is admitted to medical floor, he was started on IV antibio tics, infectious disease following Infectious disease consultation and cardiology consultation were requested Home medications reviewed and reordered
--- NOTE | 2021-01-28 11:02 | P.CONS ---
History of Present Illness - Reason for Consult Consult date: 01/28/21 wound care - History of Present Illness This is a 75-year-old patient being seen on 4 S. for nonhealing ulceration to the sacrum. Patient has a cluster of 2 ulcerations measuring approximately 1 x 0.6 x 0.2 cm's in 1 x 1 x 0.1 cm's. The ulcerations have granulation throughout the wound bed with minimal Slough and nonviable tissue. The wound edges are attached to the wound base. There is excoriation noted around the ulcerations. Patient states that the ulcerations have been there for a few months. They started when he was in the hospital previously. Patient's past medical history significant for heart failure, COPD, CVA, diabetes, GERD, hyperlipidemia, hypertension, BPH, seizure disorder, hypothyroidism. Review Of Systems: Constitutional: No fever, no chills, no night sweats. No weight change. No weakness, fatigue or lethargy. No daytime sleepiness. Integumentary:reports wounds, no lesions. No rash or pruritus. No unusual bruising. No change in hair or nails. Physical exam: General Appearance: Alert, cooperative, no distress, appears stated age. Skin: See HPI all other Skin color, texture, tugor normal, no rashes or lesions. Neurologic: Alert oriented x3 Assessment: 1. Pressure ulcer stage II sacrum 2. Diabetes a skin ulcer Plan: 1.Apply honey alginate, saline moistened gauze, dry gauze, zinc barrier cream to the periwound and a sacrum border dressing. Change Monday. Utilize a foam wash location when sitting in a chair. Turn patient every 2 hours. Thank you for the consultation any questions please contact the wound care center DNP note has been reviewed and discussed with Dr. Shannon and the impression and plan of care has been directed as dictated. Past Medical History Past Medical History: Heart Failure, COPD, CVA/TIA, Diabetes Mellitus, Eye Disorder, GERD/Reflux, Hearing Disorder / Deafness, Hyperlipidemia, Hypertension, Liver Disease, Memory Impairment, Pneumonia, Prostate Disorder, Seizure Disorder, Sleep Apnea/CPAP/BIPAP, Thyroid Disorder Additional Past Medical History / Comment(s): Pulmonary fibrosis, COPD, diabetes mellitus, photophobia, impaired hearing, hyperlipidemia, hypertension, liver cirrhosis, BPH, peripheral neuropathy, chronic back pain, chronic cervical pain, difficulty with swallowing, myasthenia gravis, chronic constipation, chronic anemia, history of esophageal and gastric varices related to chronic liver disease, splenomegaly, obstructive sleep apnea and the patient has not been utilizing CPAP treatment. Last Myocardial Infarction Date:: 1989 History of Any Multi-Drug Resistant Organisms: VRE Year Discovered:: 05/09/18 MDRO Source:: VRE URINE Past Surgical History: Heart Catheterization, Hernia Repair, Orthopedic Surgery, Tonsillectomy Additional Past Surgical History / Comment(s): EGDs/colonoscopies, RT GREAT TOE JOINT replaced, RT SHOULDER rotator cuff repair. rt and left cataract removals with lens implants, bilateral inguinal hernia repairs & hydrocele repair Past Anesthesia/Blood Transfusion Reactions: Motion Sickness Additional Past Anesthesia/Blood Transfusion Reaction / Comm: no hx blood transfusion Past Psychological History: Depression Additional Psychological History / Comment(s): Pt now has his son and son's spouse and 6 children living with him. He uses a cane to ambulate or a walker or scooter. Drives when he feels up to it. He has his son push him in a wheelc hair to [employer]. 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 He has home oxygen and a glucometer. Smoking Status: Former smoker Past Alcohol Use History: None Reported Additional Past Alcohol Use History / Comment(s): quit smoking approx 50 yrs ago,smoked in -very short time and little amount Past Drug Use History: None Reported - Past Family History Mother Family Medical History: Liver Disease, Pneumonia Additional Family Medical History / Comment(s): alcoholism Father Family Medical History: Cancer Additional Family Medical History / Comment(s): Father had lung cancer with mets to brain. He was a nonsmoker but his spouse smoked in the house. Medications and Allergies Home Medications Medication Instructions Recorded Confirmed Type Finasteride [Proscar] 5 mg PO HS 04/14/15 01/24/21 History Pyridostigmine Coker [Mestinon] 60 mg PO Q4H 04/04/17 01/24/21 History Pantoprazole Sodium [Protonix] 40 mg PO DAILY@0600 08/02/17 01/24/21 History lamoTRIgine [LaMICtal] 100 mg PO Q12H 08/02/17 01/24/21 History Albuterol Sulfate [Proair Hfa] 1 puff INHALATION RT-Q4H PRN 10/25/18 01/24/21 History Cholecalciferol [Vitamin D3 (25 25 mcg PO DAILY 10/25/18 01/24/21 History Mcg = 1000 Iu)] lamiVUDine 300 mg PO HS 10/25/18 01/24/21 History Cyanocobalamin [Vitamin B-12] 500 mcg PO DAILY 05/09/19 01/24/21 History Loperamide [Imodium] 4 mg PO TID PRN 05/09/19 01/24/21 History Multivitamins, Thera [Multivitamin 1 tab PO DAILY 05/09/19 01/24/21 History (formulary)] Vitamin E (Dl,Tocopheryl Acet) 1,000 unit PO DAILY 05/09/19 01/24/21 History [Vitamin E] Carboxymethylcellulose Sodium 1 drop BOTH EYES DAILY PRN 12/27/20 01/24/21 History [Refresh Tears] Fluticasone Nasal [place] [Flonase 2 spray EA NOSTRIL DAILY 12/27/20 01/24/21 History Nasal [place]] Spironolactone [Aldactone] 75 mg PO DAILY 12/27/20 01/24/21 History cycloSPORINE 0.05% OPHTH SOLN 1 drop BOTH EYES BID PRN 12/27/20 01/24/21 History [Restasis] guaiFENesin [Mucinex] 1,200 mg PO Q12H PRN 12/27/20 01/24/21 History ondansetron HCL [Zofran] 4 mg PO Q8H PRN 12/27/20 01/24/21 History Aspirin 81 mg PO DAILY chew 01/06/21 01/24/21 Rx Ipratropium-Albuterol Nebulize 3 ml INHALATION RT-QID ml 01/06/21 01/24/21 Rx [Duoneb 0.5 mg-3 mg/3 ml Soln] Morphine Sulfate Ir [MSIR] 15 mg PO Q6HR PRN 3 Days #12 tab 01/06/21 01/24/21 Rx Digoxin [Lanoxin] 62.5 mcg PO DAILY@0600 01/24/21 01/24/21 History Diltiazem Oral [Cardizem Oral] 60 mg PO TID@0600,1400,2200 01/24/21 01/24/21 History Furosemide [Lasix] 60 mg PO DAILY@0600 01/24/21 01/24/21 History Insulin Detemir [Levemir Flextouch] 40 units SQ HS 01/24/21 01/24/21 History Insulin Lispro [humaLOG Kwikpen] See Protocol SQ ACHS@08,,,01/24/21 01/24/21 History Magnesium Oxide [Mag-Oxide] 400 mg PO DAILY 01/24/21 01/24/21 History Metoprolol Tartrate [Lopressor] 25 mg PO TID@0600,1400,2200 01/24/21 01/24/21 History Midodrine HCl [ProAmatine] 10 mg PO AC-TID@08,,17 01/24/21 01/24/21 History Nitroglycerin Sl Tabs [Nitrostat] 0.4 mg SL Q5M PRN 01/24/21 01/24/21 History Prostat Awc 30 ml PO DAILY 01/24/21 01/24/21 History Allergies Allergy/AdvReac Type Severity Reaction Status Date / Time methylprednisolone acetate Allergy Severe Anaphylaxis Verified 01/24/21 21:21 [From Depo-Medrol] cephalexin [From Keflex] Allergy Rash/Hives Verified 01/24/21 21:21 cyclobenzaprine Allergy Unknown Verified 01/24/21 21:21 [From Flexeril] metformin Allergy Unknown Verified 01/24/21 21:21 methylprednisolone Allergy Rash/Hives Verified 01/24/21 21:21 [From Depo-Medrol] tolterodine [From Detrol] Allergy Unknown Verified 01/24/21 21:21 duloxetine [From Cymbalta] AdvReac Intense Verified 01/24/21 21:21 Flushing gabapentin [From Neurontin] AdvReac Tremors Verified 01/24/21 21:21 polyethylene glycol AdvReac Confusion Verified 01/24/21 21:21 [From Golytely] polyethylene glycol 3350 AdvReac Confusion Verified 01/24/21 21:21 [From Golytely] polyethylene glycol 3350 AdvReac Confusion Verified 01/28/21 08:45 [From Golytely] potassium chloride AdvReac Confusion Verified 01/24/21 21:21 [From Golytely] potassium chloride AdvReac Confusion Verified 01/28/21 08:45 [From Golytely] pregabalin [From Lyrica] AdvReac Intense Verified 01/24/21 21:21 Flushing sodium [From Golytely] AdvReac Confusion Verified 01/24/21 21:21 sodium bicarbonate AdvReac Confusion Verified 01/24/21 21:21 [From Golytely] sodium bicarbonate AdvReac Confusion Verified 01/28/21 08:45 [From Golytely] sodium chloride AdvReac Confusion Verified 01/24/21 21:21 [From Golytely] sodium sulfate AdvReac Confusion Verified 01/24/21 21:21 [From Golytely] sodium sulfate AdvReac Confusion Verified 01/28/21 08:45 [From Golytely] sodium sulfate anhydrous AdvReac Confusion Verified 01/24/21 21:21 [From Golytely] Physical Exam Vitals: Vital Signs Temp Pulse Pulse Resp BP Pulse Ox 01/28/21 09:29 65 01/28/21 09:20 67 01/28/21 08:00 98.1 F 136 H 18 101/64 91 L 01/28/21 06:25 118 H 123/70 01/28/21 02:03 98.6 F 73 20 103/62 94 L 01/27/21 21:28 75 18 01/27/21 21:17 71 18 97 01/27/21 19:54 98.9 F 115 H 22 101/61 91 L 01/27/21 16:20 83 01/27/21 16:13 81 01/27/21 14:00 98.5 F 116 H 18 113/65 90 L 01/27/21 12:01 75 18 01/27/21 11:49 72 18 Intake and Output 01/27/21 01/28/21 01/28/21 22:59 06:59 14:59 Intake Total 540 Output Total 1350 800 1 Balance -810 -800 -1 Intake: Oral 540 Output: Urine 1350 800 Stool 1 Other: Voiding Method Indwelling Catheter Indwelling Catheter # Bowel Movements 1 Results CBC & Chem 7: 01/27/21 10:16 01/27/21 09:18 Labs: Abnormal Lab Results - Last 24 Hours (Table) 01/27/21 01/27/21 01/27/21 Range/Units 09:18 11:29 16:34 Sodium 128 L (137-145) mmol/L Potassium 5.6 H (3.5-5.1) mmol/L Creatinine 0.61 L (0.66-1.25) mg/dL Glucose 140 H (74-99) mg/dL POC Glucose (mg/dL) 210 H 137 H (75-99) mg/dL Alkaline Phosphatase 188 H (38-126) U/L Total Protein 5.3 L (6.3-8.2) g/dL Albumin 2.7 L (3.5-5.0) g/dL 01/27/21 01/28/21 Range/Units 20:29 07:17 Sodium (137-145) mmol/L Potassium (3.5-5.1) mmol/L Creatinine (0.66-1.25) mg/dL Glucose (74-99) mg/dL POC Glucose (mg/dL) 190 H 159 H (75-99) mg/dL Alkaline Phosphatase (38-126) U/L Total Protein (6.3-8.2) g/dL Albumin (3.5-5.0) g/dL Microbiology - Last 24 Hours (Table) 01/24/21 22:40 Blood Culture - Preliminary Blood No Growth after 72 hours 01/24/21 22:35 Blood Culture - Preliminary Blood No Growth after 72 hours Assessment and Plan (1) Pressure ulcer of sacral region, stage 2 Current Visit: Yes Status: Acute Code(s): L89.152 - PRESSURE ULCER OF SACRAL REGION, STAGE 2 SNOMED Code(s): 627064329 (2) Diabetes with skin ulcer Current Visit: Yes Status: Acute Code(s): E11.622 - TYPE 2 DIABETES MELLITUS WITH OTHER SKIN ULCER; L98.499 - NON-PRESSURE CHRONIC ULCER OF SKIN OF SITES W UNSP SEVERITY SNOMED Code(s): 54774003
[2021-01-28 11:34] LABS: Glucose,Whole Blood 105 mg/dL (75-99)
[2021-01-28 12:05] LABS: Basophils # (A) 0.04 X 10*3/uL (0.00-0.10); Basophils % (A) 0.6 %; Eosinophils # (A) 0.12 X 10*3/uL (0.04-0.35); Eosinophils % (A) 1.7 %; HCT 33.1 % (39.6-50.0); HGB 10.1 g/dL (13.0-17.0); Lymphocytes # (A) 1.67 X 10*3/uL (0.90-5.00); Lymphocytes % (A) 23.2 %; MCH 26.1 pg (27.0-32.0); MCHC 30.5 g/dL (32.0-37.0); MCV 85.5 fL (80.0-97.0); Mean Platelet Volume 9.5 fL (9.5-12.2); Monocytes # (A) 1.34 X 10*3/uL (0.20-1.00); Monocytes % (A) 18.6 %; Neutrophils # (A) 3.92 X 10*3/uL (1.80-7.70); Neutrophils % (A) 54.4 %; Platelet Count 183 X 10*3/uL (140-440); RBC 3.87 X 10*6/uL (4.40-5.60); RDW 19.3 % (11.5-14.5)
[2021-01-28 16:34] LABS: Glucose,Whole Blood 203 mg/dL (75-99)
--- NOTE | 2021-01-28 18:42 | PN ---
PROGRESS NOTE DATE OF SERVICE: 01/28/2021 REASON FOR FOLLOWUP VISIT: Bilateral lower extremity cellulitis. INTERVAL HISTORY: Patient is afebrile. The patient is breathing comfortably. The patient denies having any chest pain or shortness of breath. Has been complaining of some cough. No abdominal pain or diarrhea. PHYSICAL EXAMINATION: Blood pressure 119/71, pulse of 121, temperature 98.6. He is 93% on 2 L nasal cannula. General description is an elderly male lying in bed in no distress. Respiratory system: Unlabored breathing, clear to auscultation anteriorly. Heart S1, S2. Regular rate and rhythm. Abdomen: Soft, no tenderness. Bilateral lower extremity did have swelling, however, redness has improved. LABS: Hemoglobin is 10.1, white count 7.2. DIAGNOSTIC IMPRESSION AND PLAN: Patient with bilateral lower extremity cellulitis with diffuse swelling, redness, responding to Unasyn, to continue. He may benefit from Michael wrap to keep the swelling down and continue supportive care. MMODL / IJN: [id number] /
[2021-01-28] MEDS: MORPHINE SULFATE 4 MG/ML SYRINGE IVP PRN (19:31)
[2021-01-28 20:53] LABS: Albumin/Globulin Ratio 1.43 (1.60-3.17); Anion Gap 9.1 mmol/L (4.00-12.00); Carbon Dioxide 24.9 mmol/L (21.6-31.8); Globulin 2.1 g/dL (1.6-3.3); Non-African American GFR(CKD) 92.3 (60.0-200.0); Potassium 4.2 mmol/L (3.5-5.5); Total Protein 5.1 g/dL (6.2-8.2)
[2021-01-28 20:54] LABS: Glucose,Whole Blood 134 mg/dL (75-99)
[2021-01-28] MEDS: INSULIN DETEMIR (LEVEMIR) 100 UNIT/ML SYR SQ SCH (21:09)
[2021-01-28] MEDS: FINASTERIDE 5 MG TAB PO SCH (21:11)
[2021-01-28] MEDS: LAMIVUDINE 150 MG PO SCH (21:11)
[2021-01-29] MEDS: PYRIDOSTIGMINE 60 MG TAB PO SCH ×7 (00:15→22:38)
[2021-01-29] MEDS: MORPHINE SULFATE 4 MG/ML SYRINGE IVP PRN (00:20)
[2021-01-29] MEDS: AMPICILLIN-SULBACTAM 3 GM in SODIUM CHLORIDE 0.9% 100 ML IVPB SCH ×4 (02:01→20:20)
[2021-01-29] MEDS: MORPHINE SULFATE IR 15 MG TABLET PO PRN ×2 (02:05→08:35)
[2021-01-29] MEDS: DIGOXIN 62.5 MCG TAB PO SCH (06:16)
[2021-01-29] MEDS: DILTIAZEM ORAL 60 MG TAB PO SCH ×3 (06:16→22:38)
[2021-01-29] MEDS: METOPROLOL TARTRATE 25 MG TAB PO SCH ×3 (06:16→22:38)
[2021-01-29 06:50] LABS: Glucose,Whole Blood 59 mg/dL (75-99)
[2021-01-29] MEDS: INSULIN ASPART (NovoLOG) 100 UNIT/ML VIAL SQ SCH ×4 (07:11→22:17)
[2021-01-29 07:17] LABS: Glucose,Whole Blood 77 mg/dL (75-99)
[2021-01-29] MEDS: IPRATROPIUM-ALBUTEROL 3 ML NEB INHALATION SCH ×4 (07:19→20:44)
[2021-01-29] MEDS: CHOLECALCIFEROL 25 MCG (1000 IU) TABLET PO SCH (07:57)
[2021-01-29] MEDS: MULTIVITAMINS, THERA 1 EACH TAB PO SCH (07:57)
[2021-01-29] MEDS: MAGNESIUM OXIDE 400 MG TAB PO SCH (07:57)
[2021-01-29] MEDS: ASPIRIN 81 MG PO SCH (07:57)
[2021-01-29] MEDS: MIDODRINE 5 MG TAB PO SCH ×3 (07:57→17:47)
[2021-01-29] MEDS: CYANOCOBALAMIN 500 MCG TAB PO SCH (07:57)
[2021-01-29] MEDS: PANTOPRAZOLE 40 MG TABLET PO SCH (07:57)
[2021-01-29] MEDS: lamoTRIgine 100 MG TAB PO SCH ×2 (07:57→20:21)
[2021-01-29] MEDS: VITAMIN E (DL,TOCOPHERYL ACET) 400 UNIT (180 MG) CAP PO SCH (07:58)
[2021-01-29] MEDS: FLUTICASONE 50MCG/SPRAY NASAL 16GM EA NOSTRIL SCH ×2 (07:58→07:59)
--- NOTE | 2021-01-29 10:13 | P.PN ---
Subjective Progress Note Date: 01/29/21 Duke Sánchez, is a 75 year old male who presented to [facility] emergency room with a chief complaint of bilateral lower extremity swelling erythema and tenderness He was evaluated in the emergency room vital examination on presentation revealed a temperature of 98.2 pulse 133 respiration 18 blood pressure 117/62 pulse ox 96% on 4 L nasal cannula Laboratory data reveals sodium was low at 127 BUN 18 creatinine 0.59 alkaline phosphatase 213 white blood count count 4.4 hemoglobin 10.0 platelet count low at 93 Testing in the emergency room revealed chest x-ray revealed interstitial pul monary infiltrate suggestive of interstitial fibrosis, with possible left lower lobe pneumonia, EKG revealed atrial flutter with 21 conduction with a heart rate of 129 Patient was admitted to medical floor for further evaluation and treatment Past medical history is significant for Congestive Heart Failure, COPD, history of insulin-dependent Diabetes Mellitus, history of stroke, Hyperlipidemia, H ypertension, Liver Disease, Memory Impairment, Pneumonia, Prostate Disorder, Seizure Disorder, obstructive sleep apnea maintained on CPAP, history of benign prostatic hypertrophy, gastroesophageal reflux disease, history of chronic hepatitis C, history of esophageal viruses with multiple episodes of bleeding in the past, history of myasthenia gravis and history of depression On 01/26/2021 Patient was seen and examined on the medical floor, he is alert and oriented x 3 in no distress, he denies any complaints there is no fever or chills no headache or dizziness no chest pain no shortness of breath no palpitation no cough no nausea or vomiting no abdominal pain no diarrhea no blood in the stools no burning with urination no frequency or urgency and no hematuria, there is no weakness or numbness in any of the extremities no change in vision speech or gait. Patient is complaining of runny nose and requesting a noses pray will add Flonase nose spray at this time he denies any other compl aints. On 01/27/2021 patient is alert and oriented 3. Patient's lower extremity cellulites does appear to be improving. Patient remains on IV Unasyn. Infectious disease and pulmonary services are following. Wound care service is consulted. PT OT consulted. Social work consulted for discharge planning. at this time patient denies chest pain. Patient denies nausea vomiting or diarrhea. Patient denies any urinary burning or frequency On 01/28/2021 Patient was seen and examined on the medical floor, he is alert and oriented x 3 in no distress, he was complaining of nausea and generalized weakness this morning otherwise he denies any complaints there is no fever or chills no headache or dizziness no chest pain no shortness of breath no palpitation no cough or vomiting no abdominal pain no diarrhea no blood in the stools no burning with urination no frequency or urgency and no hematuria, there is no weakness or numbness in any of the extremities no change in vision speech or gait. On 01/29/2021 patient is alert and oriented 3. Patient remains on IV Unasyn. Infectious disease, pulmonary services and wound care service is following. Discussed case with social media assistant discharge planning to [facility]. At this time patient denies chest pain or shortness breath. Patient denies nausea vomiting or diarrhea. Patient denies any urinary frequency Objective - Vital Signs Vital signs: Vital Signs Temp 98.4 F 01/29/21 08:00 Pulse 88 01/29/21 08:00 Resp 16 01/29/21 08:00 BP 130/76 01/29/21 08:00 Pulse Ox 93 L 01/29/21 08:00 Intake & Output 01/28/21 01/29/21 01/29/21 18:59 06:59 18:59 Intake Total 740 Output Total 1 600 Balance -1 140 Weight 109.769 kg Intake: IV 240 kvo 240 Intake, IV Titration 100 Amount Ampicillin-Sulbactam 3 gm 100 In Sodium Chloride 0.9% 100 ml @ 200 mls/hr IVPB Q6H [facility] Rx#:[id number] Oral 400 Output: Urine 600 Stool 1 Other: Voiding Method Indwelling Catheter Indwelling Catheter Indwelling Catheter # Bowel Movements 0 1 - Exam In general patient is alert and oriented x 3 in no distress HEENT head normocephalic and atraumatic Neck is supple no JVD no goiter no lymphadenopathy no carotid bruit Chest examination is clear to auscultation no crackles no wheezing Cardiac exam reveals regular heart sounds S1 and S2 no gallops no murmurs Abdomen is soft nontender no organomegaly with normal bowel sounds Extremity exam reveals mild edema bilaterally with bilateral pretibial erythema Neurological examination reveals no gross focal deficits - Labs CBC & Chem 7: 01/28/21 06:44 01/28/21 06:44 Labs: Abnormal Lab Results - Last 24 Hours (Table) 0701/28/21 01/28/21 Range/Units 06:44 06:44 11:33 RBC 3.87 L (4.40-5.60) X 10*6/uL Hgb 10.1 L (13.0-17.0) g/dL Hct 33.1 L (39.6-50.0) % MCH 26.1 L (27.0-32.0) pg MCHC 30.5 L (32.0-37.0) g/dL RDW 19.3 H (11.5-14.5) % Immature Gran # 0.11 H (0.00-0.04) X 10*3/uL Monocytes # 1.34 H (0.20-1.00) X 10*3/uL Sodium 134 L (135-145) mmol/L POC Glucose (mg/dL) 105 H (75-99) mg/dL Calcium 8.0 L (8.7-10.3) mg/dL Alkaline Phosphatase 197 H (41-126) U/L Total Protein 5.1 L (6.2-8.2) g/dL Albumin 3.00 L (3.80-4.90) g/dL Albumin/Globulin Ratio 1.43 L (1.60-3.17) g/dL 01/28/21 01/28/21 01/29/21 Range/Units 16:33 20:52 06:49 RBC (4.40-5.60) X 10*6/uL Hgb (13.0-17.0) g/dL Hct (39.6-50.0) % MCH (27.0-32.0) pg MCHC (32.0-37.0) g/dL RDW (11.5-14.5) % Immature Gran # (0.00-0.04) X 10*3/uL Monocytes # (0.20-1.00) X 10*3/uL Sodium (135-145) mmol/L POC Glucose (mg/dL) 203 H 134 H 59 L (75-99) mg/dL Calcium (8.7-10.3) mg/dL Alkaline Phosphatase (41-126) U/L Total Protein (6.2-8.2) g/dL Albumin (3.80-4.90) g/dL Albumin/Globulin Ratio (1.60-3.17) g/dL Microbiology - Last 24 Hours (Table) 01/24/21 22:40 Blood Culture - Preliminary Blood No Growth after 96 hours 01/24/21 22:35 Blood Culture - Preliminary Blood No Growth after 96 hours 01/25/21 05:00 Urine Culture - Preliminary Urine,Voided Klebsiella pneumoniae Assessment and Plan Plan: Bilateral lower extremity cellulitis Atrial fibrillation with rapid ventricular response Hyponatremia sodium on presentation 127 Underlying history of insulin-dependent diabetes mellitus Underlying history of hypertension Underlying history of hyperlipidemia Underlying history of coronary artery disease Underlying history of congestive heart failure Poor nutritional status with moderate protein calorie malnutrition started on insure supplements At this time patient is admitted to medical floor, he was started on IV antibiotics, infectious disease following Infectious disease consultation and cardiology consultation were requested She maintained on IV Unasyn Lasix and Aldactone currently on hold due to hyponatremia fluid restrictions were added
[2021-01-29 11:39] LABS: Glucose,Whole Blood 120 mg/dL (75-99)
[2021-01-29 12:27] LABS: HGB 10.4 g/dL (13.0-17.0); MCH 26.7 pg (27.0-32.0); MCHC 30.6 g/dL (32.0-37.0); MCV 87.2 fL (80.0-97.0); Mean Platelet Volume 10.1 fL (9.5-12.2); Platelet Count 223 X 10*3/uL (140-440); WBC 9.97 X 10*3/uL (4.50-10.00)
[2021-01-29 13:25] LABS: Albumin 2.9 g/dL (3.80-4.90); Albumin/Globulin Ratio 1.38 (1.60-3.17); Anion Gap 8.7 mmol/L (4.00-12.00); BUN/Creat Ratio 23.33 Ratio (12.00-20.00); Carbon Dioxide 24.3 mmol/L (21.6-31.8); Globulin 2.1 g/dL (1.6-3.3); Non-African American GFR(CKD) 98.4 (60.0-200.0); Potassium 4.5 mmol/L (3.5-5.5); Total Bilirubin 0.9 mg/dL (0.2-1.2)
[2021-01-29 15:09] LABS: Basophils # (A) 0.08 X 10*3/uL (0.00-0.10); Basophils % (A) 0.8 %; Eosinophils # (A) 0.17 X 10*3/uL (0.04-0.35); Eosinophils % (A) 1.7 %; Lymphocytes % (A) 32.1 %; Monocytes # (A) 1.68 X 10*3/uL (0.20-1.00); Monocytes % (A) 16.9 %; Neutrophils # (A) 4.68 X 10*3/uL (1.80-7.70); Neutrophils % (A) 46.9 %
--- NOTE | 2021-01-29 15:21 | P.PN ---
Subjective Progress Note Date: 01/29/21 Principal diagnosis: Acute on chronic hypoxic respiratory failure related to multiple etiologies including chronic congestive heart failure, COPD Bilateral lower extremity cellulitis Acute on chronic diastolic heart failure Chronic paroxysmal atrial fibrillation with RVR Electrolyte imbalance related to hyponatremia Hypertension hypertensive cardiovascular disease Dyslipidemia coronary artery disease 01/29/2021, overall remains stable, using oxygen off and on, hemodynamic status stable, remains afebrile, oxygen saturation 90% on 4 L, urine culture came back positive for Klebsiella 01/27/2021, patient seen eval examined during the rounds labs reviewed medications reviewed care plan discussed, patient remains on 2 L oxygen oxygen saturation remained stable shortness of breath stable denies any cough or sputum production, currently on broad-spectrum antibiotics for cellulitis of the legs, edema appears to be improving Patient is a 75-year-old male well-known to me patient admitted into the hospital with swelling and cellulitis of the lower extremity, patient has a long-standing history of congestive heart failure, developed cellulitis which has been marked patient remains on broad-spectrum antibiotics, patient has multiple ALLERGIES and COPD as well, also has issues associated with the BPH, GERD, COPD, congestive heart failure, history of multiple CVAs and TIAs, memory impairment, recent pneumonia as well as sleep disorder breathing and sleep apnea, patient finished therapy of the aspiration pneumonia, her sputum cleared him is positive for MSSA patient was discharged on oral Augmentin, patient last few days have progressive swelling of the lower extremity up to mid thigh level, the chest x-ray performed at the time admission revealed interstitial edema Objective - Vital Signs Vital signs: Vital Signs Temp 98.4 F 01/29/21 08:00 Pulse 92 01/29/21 11:50 Resp 16 01/29/21 08:00 BP 130/76 01/29/21 08:00 Pulse Ox 93 L 01/29/21 08:00 Intake & Output 01/28/21 01/29/21 01/29/21 18:59 06:59 18:59 Intake Total 740 Output Total 1 600 Balance -1 140 Weight 109.769 kg Intake: IV 240 kvo 240 Intake, IV Titration 100 Amount Ampicillin-Sulbactam 3 gm 100 In Sodium Chloride 0.9% 100 ml @ 200 mls/hr IVPB Q6H [facility] Rx#:[id number] Oral 400 Output: Urine 600 Stool 1 Other: Voiding Method Indwelling Catheter Indwelling Catheter Indwelling Catheter # Bowel Movements 0 1 - Exam - Constitutional General appearance: disheveled, mild distress, morbidly obese - EENT Eyes: EOMI, PERRLA Ears: bilateral: normal - Neck Neck: normal ROM Carotids: bilateral: upstroke normal Thyroid: bilateral: normal size - Respiratory Respiratory: bilateral: diminished - Cardiovascular Rhythm: regular Heart sounds: normal: S1, S2 - Gastrointestinal General gastrointestinal: normal bowel sounds, soft - Neurologic Neurologic: CNII-XII intact - Musculoskeletal Musculoskeletal: gait normal, generalized weakness, strength equal bilaterally - Psychiatric Psychiatric: A&O x's 3, appropriate affect, intact judgment & insight - Labs CBC & Chem 7: 01/29/21 05:24 01/29/21 05:24 Labs: Abnormal Lab Results - Last 24 Hours (Table) 01/28/21 01/28/21 01/28/21 Range/Units 06:44 16:33 20:52 RBC (4.40-5.60) X 10*6/uL Hgb (13.0-17.0) g/dL Hct (39.6-50.0) % MCH (27.0-32.0) pg MCHC (32.0-37.0) g/dL RDW (11.5-14.5) % Immature Gran # (0.00-0.04) X 10*3/uL Monocytes # (0.20-1.00) X 10*3/uL Sodium 134 L (135-145) mmol/L BUN/Creatinine Ratio (12.00-20.00) Ratio Glucose (70-110) mg/dL POC Glucose (mg/dL) 203 H 134 H (75-99) mg/dL Calcium 8.0 L (8.7-10.3) mg/dL Alkaline Phosphatase 197 H (41-126) U/L Total Protein 5.1 L (6.2-8.2) g/dL Albumin 3.00 L (3.80-4.90) g/dL Albumin/Globulin Ratio 1.43 L (1.60-3.17) g/dL 01/29/21 01/29/21 01/29/21 Range/Units 05:24 05:24 06:49 RBC 3.90 L (4.40-5.60) X 10*6/uL Hgb 10.4 L (13.0-17.0) g/dL Hct 34.0 L (39.6-50.0) % MCH 26.7 L (27.0-32.0) pg MCHC 30.6 L (32.0-37.0) g/dL RDW 19.0 H (11.5-14.5) % Immature Gran # 0.16 H (0.00-0.04) X 10*3/uL Monocytes # 1.68 H (0.20-1.00) X 10*3/uL Sodium 131 L (135-145) mmol/L BUN/Creatinine Ratio 23.33 H (12.00-20.00) Ratio Glucose 45 L* (70-110) mg/dL POC Glucose (mg/dL) 59 L (75-99) mg/dL Calcium 8.0 L (8.7-10.3) mg/dL Alkaline Phosphatase 199 H (41-126) U/L Total Protein 5.0 L (6.2-8.2) g/dL Albumin 2.90 L (3.80-4.90) g/dL Albumin/Globulin Ratio 1.38 L (1.60-3.17) g/dL 01/29/21 Range/Units 11:38 RBC (4.40-5.60) X 10*6/uL Hgb (13.0-17.0) g/dL Hct (39.6-50.0) % MCH (27.0-32.0) pg MCHC (32.0-37.0) g/dL RDW (11.5-14.5) % Immature Gran # (0.00-0.04) X 10*3/uL Monocytes # (0.20-1.00) X 10*3/uL Sodium (135-145) mmol/L BUN/Creatinine Ratio (12.00-20.00) Ratio Glucose (70-110) mg/dL POC Glucose (mg/dL) 120 H (75-99) mg/dL Calcium (8.7-10.3) mg/dL Alkaline Phosphatase (41-126) U/L Total Protein (6.2-8.2) g/dL Albumin (3.80-4.90) g/dL Albumin/Globulin Ratio (1.60-3.17) g/dL Microbiology - Last 24 Hours (Table) 01/24/21 22:40 Blood Culture - Preliminary Blood No Growth after 96 hours 01/24/21 22:35 Blood Culture - Preliminary Blood No Growth after 96 hours 01/25/21 05:00 Urine Culture - Preliminary Urine,Voided Klebsiella pneumoniae Assessment and Plan Assessment: Klebsiella urinary tract infection Acute on chronic hypoxic respiratory failure related to multiple etiologies including chronic congestive heart failure, COPD Bilateral lower extremity cellulitis Acute on chronic diastolic heart failure Chronic paroxysmal atrial fibrillation with RVR Electrolyte imbalance related to hyponatremia Hypertension hypertensive cardiovascular disease Dyslipidemia coronary artery disease Plan: Overall plan is to continue gently diureses, along with IV antibiotics, continue supplemental oxygen, continue deep breathing sense incentive spirometry, further plan of care as per clinical response to therapy
[2021-01-29 16:55] LABS: Glucose,Whole Blood 108 mg/dL (75-99)
--- NOTE | 2021-01-29 17:12 | PN ---
PROGRESS NOTE DATE OF SERVICE: 01/29/2021. REASON FOR FOLLOWUP: Bilateral lower extremity cellulitis. INTERIM HISTORY: The patient is afebrile. The patient has been breathing comfortably. The patient denies having any chest pain, shortness of breath, cough. No abdominal pain or diarrhea. PHYSICAL EXAMINATION: Blood pressure is 121/73, pulse 100, temperature 98.8. He is 96% on 4 L nasal cannula. General description is an elderly male lying in bed in no distress. Respiratory system: Unlabored breathing with decreased intensity in breath sounds. Heart S1, S2. Regular rate and rhythm. Abdomen soft, no tenderness. Bilateral lower extremity swelling and redness has slightly decreased. LABS: Hemoglobin is 10.4, white count 9.7, BUN of 14, creatinine 0.6. DIAGNOSTIC IMPRESSION AND PLAN: 1. Patient with bilateral lower extremity cellulitis seems to be responding to Unasyn to continue. Michael wrap to the leg to keep the swelling down. 2. Patient with a positive urine culture with multidrug resistant pathogen, possible colonization. Patient clinically not behaving as urinary tract infection with no fever or elevated white count. Hernandez catheter to be changed, repeat urine culture from new Hernandez. Continue supportive care. MMODL / IJN: [id number] /
[2021-01-29] MEDS: FINASTERIDE 5 MG TAB PO SCH (20:21)
[2021-01-29] MEDS: LAMIVUDINE 150 MG PO SCH (20:28)
[2021-01-29 20:50] LABS: Glucose,Whole Blood 153 mg/dL (75-99)
[2021-01-29] MEDS: INSULIN DETEMIR (LEVEMIR) 100 UNIT/ML SYR SQ SCH (22:16)
[2021-01-30] MEDS: AMPICILLIN-SULBACTAM 3 GM in SODIUM CHLORIDE 0.9% 100 ML IVPB SCH ×4 (01:16→20:35)
[2021-01-30] MEDS: MORPHINE SULFATE IR 15 MG TABLET PO PRN (01:19)
[2021-01-30] MEDS: PYRIDOSTIGMINE 60 MG TAB PO SCH ×6 (05:43→23:08)
[2021-01-30] MEDS: DIGOXIN 62.5 MCG TAB PO SCH (05:43)
[2021-01-30] MEDS: DILTIAZEM ORAL 60 MG TAB PO SCH ×3 (05:44→20:34)
[2021-01-30] MEDS: METOPROLOL TARTRATE 25 MG TAB PO SCH ×3 (05:44→20:34)
[2021-01-30 06:53] LABS: Glucose,Whole Blood 63 mg/dL (75-99)
[2021-01-30] MEDS: INSULIN ASPART (NovoLOG) 100 UNIT/ML VIAL SQ SCH ×4 (07:06→20:34)
[2021-01-30 07:11] LABS: Glucose,Whole Blood 75 mg/dL (75-99)
[2021-01-30] MEDS: IPRATROPIUM-ALBUTEROL 3 ML NEB INHALATION SCH ×4 (07:36→19:43)
[2021-01-30] MEDS: ASPIRIN 81 MG PO SCH (08:24)
[2021-01-30] MEDS: lamoTRIgine 100 MG TAB PO SCH ×2 (08:25→20:34)
[2021-01-30] MEDS: MIDODRINE 5 MG TAB PO SCH ×3 (08:25→17:47)
[2021-01-30] MEDS: PANTOPRAZOLE 40 MG TABLET PO SCH (08:25)
[2021-01-30] MEDS: CHOLECALCIFEROL 25 MCG (1000 IU) TABLET PO SCH (08:25)
[2021-01-30] MEDS: CYANOCOBALAMIN 500 MCG TAB PO SCH (08:26)
[2021-01-30] MEDS: MULTIVITAMINS, THERA 1 EACH TAB PO SCH (08:26)
[2021-01-30] MEDS: MAGNESIUM OXIDE 400 MG TAB PO SCH (08:26)
[2021-01-30] MEDS: VITAMIN E (DL,TOCOPHERYL ACET) 400 UNIT (180 MG) CAP PO SCH (08:27)
[2021-01-30] MEDS: FLUTICASONE 50MCG/SPRAY NASAL 16GM EA NOSTRIL SCH ×2 (08:29)
[2021-01-30 09:21] LABS: Eosinophils # (A) 0.14 X 10*3/uL (0.04-0.35); Eosinophils % (A) 1.5 %; HCT 33.5 % (39.6-50.0); HGB 10.3 g/dL (13.0-17.0); Lymphocytes # (A) 2.63 X 10*3/uL (0.90-5.00); Lymphocytes % (A) 27.6 %; MCH 26.8 pg (27.0-32.0); MCHC 30.7 g/dL (32.0-37.0); Mean Platelet Volume 9.8 fL (9.5-12.2); Monocytes # (A) 1.74 X 10*3/uL (0.20-1.00); Monocytes % (A) 18.2 %; Neutrophils # (A) 4.73 X 10*3/uL (1.80-7.70); Neutrophils % (A) 49.6 %; Platelet Count 225 X 10*3/uL (140-440); RBC 3.85 X 10*6/uL (4.40-5.60); RDW 18.9 % (11.5-14.5); WBC 9.54 X 10*3/uL (4.50-10.00)
[2021-01-30 10:37] LABS: Albumin 2.9 g/dL (3.80-4.90); Albumin/Globulin Ratio 1.38 (1.60-3.17); Anion Gap 6.6 mmol/L (4.00-12.00); BUN/Creat Ratio 23.33 Ratio (12.00-20.00); Calcium 7.9 mg/dL (8.7-10.3); Carbon Dioxide 26.4 mmol/L (21.6-31.8); Globulin 2.1 g/dL (1.6-3.3); Non-African American GFR(CKD) 98.4 (60.0-200.0); Potassium 4.6 mmol/L (3.5-5.5); Total Bilirubin 0.9 mg/dL (0.3-1.2)
--- NOTE | 2021-01-30 10:40 | P.PN ---
Subjective Progress Note Date: 01/30/21 Duke Sánchez, is a 75 year old male who presented to [facility] emergency room with a chief complaint of bilateral lower extremity swelling erythema and tenderness He was evaluated in the emergency room vital examination on presentation revealed a temperature of 98.2 pulse 133 respiration 18 blood pressure 117/62 pulse ox 96% on 4 L nasal cannula Laboratory data reveals sodium was low at 127 BUN 18 creatinine 0.59 alkaline phosphatase 213 white blood count count 4.4 hemoglobin 10.0 platelet count low at 93 Testing in the emergency room revealed chest x-ray revealed interstitial pul monary infiltrate suggestive of interstitial fibrosis, with possible left lower lobe pneumonia, EKG revealed atrial flutter with 21 conduction with a heart rate of 129 Patient was admitted to medical floor for further evaluation and treatment Past medical history is significant for Congestive Heart Failure, COPD, history of insulin-dependent Diabetes Mellitus, history of stroke, Hyperlipidemia, H ypertension, Liver Disease, Memory Impairment, Pneumonia, Prostate Disorder, Seizure Disorder, obstructive sleep apnea maintained on CPAP, history of benign prostatic hypertrophy, gastroesophageal reflux disease, history of chronic hepatitis C, history of esophageal viruses with multiple episodes of bleeding in the past, history of myasthenia gravis and history of depression On 01/26/2021 Patient was seen and examined on the medical floor, he is alert and oriented x 3 in no distress, he denies any complaints there is no fever or chills no headache or dizziness no chest pain no shortness of breath no palpitation no cough no nausea or vomiting no abdominal pain no diarrhea no blood in the stools no burning with urination no frequency or urgency and no hematuria, there is no weakness or numbness in any of the extremities no change in vision speech or gait. Patient is complaining of runny nose and requesting a noses pray will add Flonase nose spray at this time he denies any other compl aints. On 01/27/2021 patient is alert and oriented 3. Patient's lower extremity cellulites does appear to be improving. Patient remains on IV Unasyn. Infectious disease and pulmonary services are following. Wound care service is consulted. PT OT consulted. Social work consulted for discharge planning. at this time patient denies chest pain. Patient denies nausea vomiting or diarrhea. Patient denies any urinary burning or frequency On 01/28/2021 Patient was seen and examined on the medical floor, he is alert and oriented x 3 in no distress, he was complaining of nausea and generalized weakness this morning otherwise he denies any complaints there is no fever or chills no headache or dizziness no chest pain no shortness of breath no palpitation no cough or vomiting no abdominal pain no diarrhea no blood in the stools no burning with urination no frequency or urgency and no hematuria, there is no weakness or numbness in any of the extremities no change in vision speech or gait. On 01/29/2021 patient is alert and oriented 3. Patient remains on IV Unasyn. Infectious disease, pulmonary services and wound care service is following. Discussed case with social media campaign manager discharge planning to [facility]. At this time patient denies chest pain or shortness breath. Patient denies nausea vomiting or diarrhea. Patient denies any urinary frequency. On 01/30/2021 Patient was seen and examined on the medical floor, he is alert and oriented x 3 in no distress, he denies any complaints there is no fever or chills no headache or dizziness no chest pain no shortness of breath no palpitation no cough no nausea or vomiting no abdominal pain no diarrhea no blood in the stools no burning with urination no frequency or urgency and no hematuria, there is no weakness or numbness in any of the extremities no change in vision speech or gait., Patient had an episode of hypoglycemia this morning with blurred vision, otherwise he denies any complaints at this time Objective - Vital Signs Vital signs: Vital Signs Temp 98.0 F 01/30/21 07:35 Pulse 100 01/30/21 07:46 Resp 18 01/30/21 07:46 BP 103/57 01/30/21 07:35 Pulse Ox 94 L 01/30/21 07:36 Intake & Output 01/29/21 01/30/21 01/30/21 18:59 06:59 18:59 Intake Total 540 Output Total 500 1125 Balance 40 -1125 Intake: Oral 540 Output: Urine 500 1125 Other: Voiding Method Indwelling Catheter Indwelling Catheter - Exam In general patient is alert and oriented x 3 in no distress HEENT head normocephalic and atraumatic Neck is supple no JVD no goiter no lymphadenopathy no carotid bruit Chest examination is clear to auscultation no crackles no wheezing Cardiac exam reveals regular heart sounds S1 and S2 no gallops no murmurs Abdomen is soft nontender no organomegaly with normal bowel sounds Extremity exam reveals mild edema bilaterally with bilateral pretibial erythema Neurological examination reveals no gross focal deficits - Labs CBC & Chem 7: 01/30/21 05:26 01/30/21 05:26 Labs: Abnormal Lab Results - Last 24 Hours (Table) 01/29/21 01/29/21 01/29/21 Range/Units 05:24 05:24 11:38 RBC 3.90 L (4.40-5.60) X 10*6/uL Hgb 10.4 L (13.0-17.0) g/dL Hct 34.0 L (39.6-50.0) % MCH 26.7 L (27.0-32.0) pg MCHC 30.6 L (32.0-37.0) g/dL RDW 19.0 H (11.5-14.5) % Immature Gran # 0.16 H (0.00-0.04) X 10*3/uL Monocytes # 1.68 H (0.20-1.00) X 10*3/uL Sodium 131 L (135-145) mmol/L BUN/Creatinine Ratio 23.33 H (12.00-20.00) Ratio Glucose 45 L* (70-110) mg/dL POC Glucose (mg/dL) 120 H (75-99) mg/dL Calcium 8.0 L (8.7-10.3) mg/dL Alkaline Phosphatase 199 H (41-126) U/L Total Protein 5.0 L (6.2-8.2) g/dL Albumin 2.90 L (3.80-4.90) g/dL Albumin/Globulin Ratio 1.38 L (1.60-3.17) g/dL 01/29/21 01/29/21 01/30/21 Range/Units 16:53 20:48 05:26 RBC 3.85 L (4.40-5.60) X 10*6/uL Hgb 10.3 L (13.0-17.0) g/dL Hct 33.5 L (39.6-50.0) % MCH 26.8 L (27.0-32.0) pg MCHC 30.7 L (32.0-37.0) g/dL RDW 18.9 H (11.5-14.5) % Immature Gran # 0.20 H (0.00-0.04) X 10*3/uL Monocytes # 1.74 H (0.20-1.00) X 10*3/uL Sodium (135-145) mmol/L BUN/Creatinine Ratio (12.00-20.00) Ratio Glucose (70-110) mg/dL POC Glucose (mg/dL) 108 H 153 H (75-99) mg/dL Calcium (8.7-10.3) mg/dL Alkaline Phosphatase (41-126) U/L Total Protein (6.2-8.2) g/dL Albumin (3.80-4.90) g/dL Albumin/Globulin Ratio (1.60-3.17) g/dL 01/30/21 Range/Units 06:53 RBC (4.40-5.60) X 10*6/uL Hgb (13.0-17.0) g/dL Hct (39.6-50.0) % MCH (27.0-32.0) pg MCHC (32.0-37.0) g/dL RDW (11.5-14.5) % Immature Gran # (0.00-0.04) X 10*3/uL Monocytes # (0.20-1.00) X 10*3/uL Sodium (135-145) mmol/L BUN/Creatinine Ratio (12.00-20.00) Ratio Glucose (70-110) mg/dL POC Glucose (mg/dL) 63 L (75-99) mg/dL Calcium (8.7-10.3) mg/dL Alkaline Phosphatase (41-126) U/L Total Protein (6.2-8.2) g/dL Albumin (3.80-4.90) g/dL Albumin/Globulin Ratio (1.60-3.17) g/dL Microbiology - Last 24 Hours (Table) 01/24/21 22:40 Blood Culture - Preliminary Blood No Growth after 120 hours 01/24/21 22:35 Blood Culture - Preliminary Blood No Growth after 120 hours Assessment and Plan Plan: Bilateral lower extremity cellulitis Atrial fibrillation with rapid ventricular response Hyponatremia sodium on presentation 127 Underlying history of insulin-dependent diabetes mellitus Underlying history of hypertension Underlying history of hyperlipidemia Underlying history of coronary artery disease Underlying history of congestive heart failure Poor nutritional status with moderate protein calorie malnutrition started on insure supplements At this time patient is admitted to medical floor, he was started on IV antibiotics, infectious disease following Infectious disease consultation and cardiology consultation were requested She maintained on IV Unasyn Lasix and Aldactone currently on hold due to hyponatremia fluid restrictions gabriela e added
[2021-01-30 11:48] LABS: Glucose,Whole Blood 95 mg/dL (75-99)
[2021-01-30 16:45] LABS: Glucose,Whole Blood 93 mg/dL (75-99)
--- NOTE | 2021-01-30 19:22 | PN ---
PROGRESS NOTE DATE OF SERVICE: 01/30/2021 REASON FOR FOLLOWUP: 1. Bilateral lower extremity cellulitis. 2. Urine culture positive for multidrug resistant Klebsiella. INTERVAL HISTORY: The patient is afebrile, breathing comfortably. No chest pain or shortness of breath. Has been complaining of some cough. No abdominal pain or diarrhea. Pain to the leg has decreased. PHYSICAL EXAMINATION: Blood pressure 150/76, pulse of 105. Temperature 98.7. He is 92% on 2 L nasal cannula. General description is an elderly male lying in bed in no distress. Respiratory system: Unlabored breathing, decreased breath sounds at the base. No wheeze. Heart: S1, S2. Regular rate and rhythm. Abdomen: Soft, no tenderness. Extremities: Leg swelling persists. Redness has decreased. LABS: Hemoglobin is 10.1 and white count 9.54. BUN of 14, creatinine 0.6. DIAGNOSTIC IMPRESSION AND PLAN: 1. Patient with bilateral lower extremity cellulitis in this patient who did have diffuse swelling and redness, clinically responded Unasyn, to continue. Michael wrap to the leg to keep the swelling down. 2. Positive urine with multidrug resistant Klebsiella. No significant symptoms. No fever or elevated white count. Repeat a urine culture. 3. Continue supportive care. MMODL / IJN: [id number] /
[2021-01-30 20:27] LABS: Glucose,Whole Blood 195 mg/dL (75-99)
[2021-01-30] MEDS: LAMIVUDINE 150 MG PO SCH (20:28)
[2021-01-30] MEDS: INSULIN DETEMIR (LEVEMIR) 100 UNIT/ML SYR SQ SCH (20:34)
[2021-01-30] MEDS: FINASTERIDE 5 MG TAB PO SCH (20:35)
[2021-01-31 01:57] LABS: Appearance,Urine Cloudy (Clear); Bacteria,Urine Rare /hpf; Bilirubin,Urine Negative (Negative); Blood,Urine Negative (Negative); Budding Yeast,Urine Few /hpf; Color,Urine Yellow; Glucose,Urine (UA) Negative (Negative); Hyaline Casts,Urine 12 /lpf (0-2); Ketones,Urine Negative (Negative); Leukocyte Esterase,Urine Large (Negative); Mucus,Urine Rare /hpf; Nitrite,Urine Negative (Negative); PH, Urine 5.5 (5.0-8.0); Protein,Urine Trace (Negative); RBC,Urine 7 /hpf (0-5); Specific Gravity,Urine 1.024 (1.001-1.035); Squamous Epithelial Cell,Urine <1 /hpf (0-4); Urobilinogen,Urine <2.0 mg/dL (<2.0); WBC,Urine 78 /hpf (0-5)
[2021-01-31] MEDS: AMPICILLIN-SULBACTAM 3 GM in SODIUM CHLORIDE 0.9% 100 ML IVPB SCH ×4 (02:51→21:26)
[2021-01-31] MEDS: PYRIDOSTIGMINE 60 MG TAB PO SCH ×6 (02:52→23:05)
[2021-01-31] MEDS: MORPHINE SULFATE IR 15 MG TABLET PO PRN ×2 (02:57→10:18)
[2021-01-31] MEDS: DIGOXIN 62.5 MCG TAB PO SCH (06:25)
[2021-01-31] MEDS: METOPROLOL TARTRATE 25 MG TAB PO SCH ×3 (06:25→21:26)
[2021-01-31] MEDS: DILTIAZEM ORAL 60 MG TAB PO SCH ×3 (06:25→21:52)
[2021-01-31 06:55] LABS: Glucose,Whole Blood 92 mg/dL (75-99)
[2021-01-31] MEDS: INSULIN ASPART (NovoLOG) 100 UNIT/ML VIAL SQ SCH ×4 (06:55→21:26)
[2021-01-31] MEDS: IPRATROPIUM-ALBUTEROL 3 ML NEB INHALATION SCH ×4 (07:07→18:23)
[2021-01-31] MEDS: CYANOCOBALAMIN 500 MCG TAB PO SCH (08:06)
[2021-01-31] MEDS: MIDODRINE 5 MG TAB PO SCH ×3 (08:07→16:14)
[2021-01-31] MEDS: lamoTRIgine 100 MG TAB PO SCH ×2 (08:07→21:26)
[2021-01-31] MEDS: CHOLECALCIFEROL 25 MCG (1000 IU) TABLET PO SCH (08:07)
[2021-01-31] MEDS: MULTIVITAMINS, THERA 1 EACH TAB PO SCH (08:07)
[2021-01-31] MEDS: VITAMIN E (DL,TOCOPHERYL ACET) 400 UNIT (180 MG) CAP PO SCH (08:07)
[2021-01-31] MEDS: MAGNESIUM OXIDE 400 MG TAB PO SCH (08:07)
[2021-01-31] MEDS: PANTOPRAZOLE 40 MG TABLET PO SCH (08:07)
[2021-01-31] MEDS: FLUTICASONE 50MCG/SPRAY NASAL 16GM EA NOSTRIL SCH ×2 (08:08→08:09)
--- NOTE | 2021-01-31 09:59 | P.PN ---
Subjective Progress Note Date: 01/31/21 Duke Sánchez, is a 75 year old male who presented to [facility] emergency room with a chief complaint of bilateral lower extremity swelling erythema and tenderness He was evaluated in the emergency room vital examination on presentation revealed a temperature of 98.2 pulse 133 respiration 18 blood pressure 117/62 pulse ox 96% on 4 L nasal cannula Laboratory data reveals sodium was low at 127 BUN 18 creatinine 0.59 alkaline phosphatase 213 white blood count count 4.4 hemoglobin 10.0 platelet count low at 93 Testing in the emergency room revealed chest x-ray revealed interstitial pul monary infiltrate suggestive of interstitial fibrosis, with possible left lower lobe pneumonia, EKG revealed atrial flutter with 21 conduction with a heart rate of 129 Patient was admitted to medical floor for further evaluation and treatment Past medical history is significant for Congestive Heart Failure, COPD, history of insulin-dependent Diabetes Mellitus, history of stroke, Hyperlipidemia, H ypertension, Liver Disease, Memory Impairment, Pneumonia, Prostate Disorder, Seizure Disorder, obstructive sleep apnea maintained on CPAP, history of benign prostatic hypertrophy, gastroesophageal reflux disease, history of chronic hepatitis C, history of esophageal viruses with multiple episodes of bleeding in the past, history of myasthenia gravis and history of depression On 01/26/2021 Patient was seen and examined on the medical floor, he is alert and oriented x 3 in no distress, he denies any complaints there is no fever or chills no headache or dizziness no chest pain no shortness of breath no palpitation no cough no nausea or vomiting no abdominal pain no diarrhea no blood in the stools no burning with urination no frequency or urgency and no hematuria, there is no weakness or numbness in any of the extremities no change in vision speech or gait. Patient is complaining of runny nose and requesting a noses pray will add Flonase nose spray at this time he denies any other compl aints. On 01/27/2021 patient is alert and oriented 3. Patient's lower extremity cellulites does appear to be improving. Patient remains on IV Unasyn. Infectious disease and pulmonary services are following. Wound care service is consulted. PT OT consulted. Social work consulted for discharge planning. at this time patient denies chest pain. Patient denies nausea vomiting or diarrhea. Patient denies any urinary burning or frequency On 01/28/2021 Patient was seen and examined on the medical floor, he is alert and oriented x 3 in no distress, he was complaining of nausea and generalized weakness this morning otherwise he denies any complaints there is no fever or chills no headache or dizziness no chest pain no shortness of breath no palpitation no cough or vomiting no abdominal pain no diarrhea no blood in the stools no burning with urination no frequency or urgency and no hematuria, there is no weakness or numbness in any of the extremities no change in vision speech or gait. On 01/29/2021 patient is alert and oriented 3. Patient remains on IV Unasyn. Infectious disease, pulmonary services and wound care service is following. Discussed case with family welfare social work professor discharge planning to [facility]. At this time patient denies chest pain or shortness breath. Patient denies nausea vomiting or diarrhea. Patient denies any urinary frequency. On 01/30/2021 Patient was seen and examined on the medical floor, he is alert and oriented x 3 in no distress, he denies any complaints there is no fever or chills no headache or dizziness no chest pain no shortness of breath no palpitation no cough no nausea or vomiting no abdominal pain no diarrhea no blood in the stools no burning with urination no frequency or urgency and no hematuria, there is no weakness or numbness in any of the extremities no change in vision speech or gait., Patient had an episode of hypoglycemia this morning with blurred vision, otherwise he denies any complaints at this time On 01/31/2021 patient is alert and oriented 3. Patient complaining of increased fluid retention. Will resume patient's home Lasix and Aldactone that was currently on hold due to hyponatremia. Cardiology services have been consulted. Lung sounds are clear to auscultation. Patient reports he is having some shortness of breath will order chest x-ray. Patient denies chest pain. Patient denies nausea vomiting or diarrhea. Patient denies any urinary burning or frequency Objective - Vital Signs Vital signs: Vital Signs Temp 97.4 F L 01/31/21 07:48 Pulse 63 01/31/21 07:48 Resp 18 01/31/21 07:48 BP 110/69 01/31/21 07:48 Pulse Ox 96 01/31/21 07:48 Intake & Output 01/30/21 01/31/21 01/31/21 18:59 06:59 18:59 Intake Total 240 Output Total 450 Balance 240 -450 Intake: IV 240 kvo 240 Output: Urine 450 Other: Voiding Method Indwelling Catheter # Bowel Movements 1 1 - Exam In general patient is alert and oriented x 3 in no distress HEENT head normocephalic and atraumatic Neck is supple no JVD no goiter no lymphadenopathy no carotid bruit Chest examination is clear to auscultation no crackles no wheezing Cardiac exam reveals regular heart sounds S1 and S2 no gallops no murmurs Abdomen is soft nontender no organomegaly with normal bowel sounds Extremity exam reveals mild edema bilaterally with bilateral pretibial erythema Neurological examination reveals no gross focal deficits - Labs CBC & Chem 7: 01/30/21 05:26 01/30/21 05:26 Labs: Abnormal Lab Results - Last 24 Hours (Table) 01/30/21 01/30/21 01/30/21 Range/Units 05:26 20:26 23:35 Sodium 131 L (135-145) mmol/L BUN/Creatinine Ratio 23.33 H (12.00-20.00) Ratio POC Glucose (mg/dL) 195 H (75-99) mg/dL Calcium 7.9 L (8.7-10.3) mg/dL Alkaline Phosphatase 200 H (41-126) U/L Total Protein 5.0 L (6.2-8.2) g/dL Albumin 2.90 L (3.80-4.90) g/dL Albumin/Globulin Ratio 1.38 L (1.60-3.17) g/dL Urine Protein Trace H (Negative) Ur Leukocyte Esterase Large H (Negative) Urine RBC 7 H (0-5) /hpf Urine WBC 78 H (0-5) /hpf Urine WBC Clumps Few H (None) /hpf Urine Bacteria Rare H (None) /hpf Hyaline Casts 12 H (0-2) /lpf Urine Mucus Rare H (None) /hpf Urine Yeast (Budding) Few H (None) /hpf Microbiology - Last 24 Hours (Table) 01/24/21 22:35 Blood Culture - Final Blood No Growth after 144 hours 01/24/21 22:40 Blood Culture - Final Blood No Growth after 144 hours Assessment and Plan Plan: Bilateral lower extremity cellulitis Atrial fibrillation with rapid ventricular response Hyponatremia sodium on presentation 127 Underlying history of insulin-dependent diabetes mellitus Underlying history of hypertension Underlying history of hyperlipidemia Underlying history of coronary artery disease Underlying history of congestive heart failure Poor nutritional status with moderate protein calorie malnutrition started on insure supplements Increased fluid retention. Aldactone and Lasix resumed. Cardiology services have been consulted. Chest x-ray ordered At this time patient is admitted to medical floor, he was started on IV antibiotics, infectious disease following Infectious disease consultation and cardiology consultation were requested She maintained on IV Unasyn
[2021-01-31 10:18] LABS: Basophils # (A) 0.07 X 10*3/uL (0.00-0.10); Basophils % (A) 0.8 %; Eosinophils # (A) 0.09 X 10*3/uL (0.04-0.35); HCT 32.1 % (39.6-50.0); HGB 9.8 g/dL (13.0-17.0); Lymphocytes % (A) 25.3 %; MCH 26.2 pg (27.0-32.0); MCHC 30.5 g/dL (32.0-37.0); MCV 85.8 fL (80.0-97.0); Mean Platelet Volume 9.9 fL (9.5-12.2); Monocytes # (A) 1.46 X 10*3/uL (0.20-1.00); Monocytes % (A) 16.8 %; Neutrophils # (A) 4.73 X 10*3/uL (1.80-7.70); Neutrophils % (A) 54.6 %; Platelet Count 222 X 10*3/uL (140-440); RBC 3.74 X 10*6/uL (4.40-5.60); RDW 18.5 % (11.5-14.5); WBC 8.68 X 10*3/uL (4.50-10.00)
[2021-01-31] MEDS: FUROSEMIDE 20 MG TAB PO SCH (10:19)
--- NOTE | 2021-01-31 10:53 | XR ---
EXAMINATION TYPE: XR chest 2V DATE OF EXAM: 01/31/2021 COMPARISON: 01/24/2021 TECHNIQUE: PA and lateral views submitted. HISTORY: Shortness of breath FINDINGS: Diffuse patchy bilateral areas of infiltrate and small effusion. Heart is enlarged. Atherosclerotic c hange aorta. No pneumothorax. Degenerative change of the spine. Underlying COPD suspected. IMPRESSION: 1. Diffuse bilateral areas of infiltrate and small effusion correlate for multifocal pneumonia versus pulmonary edema.
[2021-01-31 11:47] LABS: Albumin 2.9 g/dL (3.80-4.90); Albumin/Globulin Ratio 1.38 (1.60-3.17); Anion Gap 3.4 mmol/L (4.00-12.00); BUN/Creat Ratio 23.33 Ratio (12.00-20.00); Calcium 8.1 mg/dL (8.7-10.3); Carbon Dioxide 28.6 mmol/L (21.6-31.8); Globulin 2.1 g/dL (1.6-3.3); Non-African American GFR(CKD) 98.4 (60.0-200.0); Potassium 4.5 mmol/L (3.5-5.5); Total Bilirubin 0.9 mg/dL (0.2-1.2)
[2021-01-31 11:50] LABS: Glucose,Whole Blood 97 mg/dL (75-99)
[2021-01-31 17:30] LABS: Glucose,Whole Blood 118 mg/dL (75-99)
--- NOTE | 2021-01-31 17:47 | CT ---
EXAMINATION TYPE: CT left ankle without contrast DATE OF EXAM: 02/01/2020 143 COMPARISON: None HISTORY: Left ankle pain after twisting injury CT DLP: 108.5 mGycm Automated exposure control for dose reduction was used. TECHNIQUE: Multiple contiguous axial CT images of the ankle were obtained without the administration of intravenous contrast. 2-D coronal and sagittal reformatted images were performed. 3-D post process ing reconstructed images were performed on an independent workstation for further evaluation of the o sseous structures. FINDINGS: No acute fracture or dislocation. Mild to moderate degenerative changes of the talotibial joint and t he talonavicular joint. Os trigonum is present. Moderate soft tissue swelling along the anterolateral aspect of the ankle. IMPRESSION: 1. No acute fracture or dislocation. 2. Moderate soft tissue swelling along the anterolateral aspect of the ankle.
[2021-01-31] MEDS: LAMIVUDINE 150 MG PO SCH (19:04)
--- NOTE | 2021-01-31 19:32 | PN ---
PROGRESS NOTE DATE OF SERVICE: 01/31/2021. REASON FOR FOLLOWUP: Bilateral lower extremity cellulitis and positive urine culture with multidrug resistant pathogen. INTERVAL HISTORY: The patient is currently afebrile. Patient is breathing comfortably. Denies having any chest pain or cough. No abdominal pain. No worsening pain to the lower extremity. PHYSICAL EXAMINATION: Blood pressure , pulse of 82, temperature 98.1. He is 97% on 7 L nasal cannula. General description is an elderly male lying in bed in no distress. Respiratory system: Unlabored breathing. Decreased breath sounds in the bases. No wheeze. Heart S1, S2. Regular rate and rhythm. Abdomen soft, no tenderness. Legs are currently with compression dressing. LABS: Hemoglobin 9.1, white count 8.6, BUN of 14, creatinine 0.6. DIAGNOSTIC IMPRESSION AND PLAN: 1. Patient with bilateral lower extremity cellulitis, diffuse swelling and redness, likely streptococcal disease. To continue with Unasyn. 2. Positive blood culture with multidrug resistant Klebsiella. No significant symptoms, possible colonization. Repeat urine is positive. Cultures will be followed. Continue supportive care. MMODL / IJN: [id number] /
[2021-01-31 20:34] LABS: Glucose,Whole Blood 256 mg/dL (75-99)
[2021-01-31] MEDS: FINASTERIDE 5 MG TAB PO SCH (21:26)
[2021-01-31] MEDS: INSULIN DETEMIR (LEVEMIR) 100 UNIT/ML SYR SQ SCH (21:27)
[2021-02-01] MEDS: IPRATROPIUM-ALBUTEROL 3 ML NEB INHALATION SCH ×5 (00:47→19:44)
[2021-02-01] MEDS ORDERED: FUROSEMIDE 10 MG/ML 4 ML VIAL ONE (00:56)
[2021-02-01 01:12] LABS: Glucose,Whole Blood 151 mg/dL (75-99)
[2021-02-01] MEDS ORDERED: FUROSEMIDE 10 MG/ML 4 ML VIAL IV STA (01:12)
--- NOTE | 2021-02-01 01:22 | P.EN ---
A team note Activated at 1:05 AM. Arrived at the scene shortly after. Discussed the case with the RN and reviewed the chart. The patient was admitted to the medicine service roughly a week ago for lower extremity cellulitis. Tonight, the RN noted that the patient appeared to be progressively short of breath for which she activated the A-team. Upon arrival, patient was noted to be on BiPAP, settings 12/5/50% FiO2. Vitals were BP 132/86, pulse 116, and SpO2 of 95%. General: Non-toxic, in mild respiratory distress, appears stated age HEENT: NC/AT, anicteric sclerae, moist conjunctiva, no lid-lag Cardiovascular: S1/S2 wnl, no murmurs, rubs, or gallops Lungs: Diffuse bilateral rales and some scattered rhonchi, no wheezing appreciated, some accessory muscle use Abdominal: Soft, non-tender, non-distended, no guarding, rebound, or rigidity Skin: Warm, dry Extremities: Soren 2+ pitting edema and erythema of LEs Psychiatric: Alert and oriented to person, place and time, appropriate affect Neuro: CN II-XII grossly intact, Strength 5/5 in all 4 extremities, Speech intact, Sensation to light touch grossly intact throughout Assessment/plan Shortness of breath, suspected flash pulmonary edema -The patient had received 40 mg of IV push Lasix 10 minutes prior to activation of A-team -Additional 40 mg IV push Lasix ordered -Intake and output with daily weights -Cardiology consult recommended -Continue with BiPAP for now -Consider increasing Lasix to 40 mg IV push every 12 hours -Chest x-ray ordered -Primary team notified Total amount of time spent providing critical care: Greater than 30 minutes
[2021-02-01] MEDS: FUROSEMIDE 10 MG/ML 4 ML VIAL IV STA (01:34)
[2021-02-01] MEDS: AMPICILLIN-SULBACTAM 3 GM in SODIUM CHLORIDE 0.9% 100 ML IVPB SCH ×4 (01:36→19:56)
--- NOTE | 2021-02-01 01:45 | XR ---
EXAMINATION TYPE: XR chest 1V portable DATE OF EXAM: 02/01/2021 COMPARISON: Yesterday HISTORY: Short of breath TECHNIQUE: FINDINGS: There is patchy bilateral pulmonary interstitial and airspace infiltrates. There are chest leads. Pulmonary vascularity is difficult to evaluate because of the extensive lung disease. IMPRESSION: Extensive pulmonary infiltrates consistent with RDS that is not significantly different t coronel yesterday. Heart failure not excluded.
[2021-02-01] MEDS: MORPHINE SULFATE 4 MG/ML SYRINGE IVP PRN ×3 (02:20→19:57)
[2021-02-01] MEDS: PYRIDOSTIGMINE 60 MG TAB PO SCH ×5 (04:36→19:56)
[2021-02-01] MEDS: METOPROLOL TARTRATE 25 MG TAB PO SCH ×4 (05:50→22:07)
[2021-02-01] MEDS: DILTIAZEM ORAL 60 MG TAB PO SCH ×3 (05:50→19:56)
[2021-02-01] MEDS: DIGOXIN 62.5 MCG TAB PO SCH (05:50)
[2021-02-01 08:13] LABS: Glucose,Whole Blood 104 mg/dL (75-99)
[2021-02-01] MEDS: INSULIN ASPART (NovoLOG) 100 UNIT/ML VIAL SQ SCH ×4 (08:18→19:57)
[2021-02-01] MEDS: ASPIRIN 81 MG PO SCH (08:25)
[2021-02-01] MEDS: PANTOPRAZOLE 40 MG TABLET PO SCH (08:25)
[2021-02-01] MEDS: MIDODRINE 5 MG TAB PO SCH ×3 (08:25→17:25)
[2021-02-01] MEDS: CYANOCOBALAMIN 500 MCG TAB PO SCH (08:25)
[2021-02-01] MEDS: MAGNESIUM OXIDE 400 MG TAB PO SCH (08:25)
[2021-02-01] MEDS: CHOLECALCIFEROL 25 MCG (1000 IU) TABLET PO SCH (08:25)
[2021-02-01] MEDS: lamoTRIgine 100 MG TAB PO SCH ×2 (08:25→19:56)
[2021-02-01] MEDS: MULTIVITAMINS, THERA 1 EACH TAB PO SCH (08:25)
[2021-02-01] MEDS: FUROSEMIDE 20 MG TAB PO SCH (08:25)
[2021-02-01] MEDS: SPIRONOLACTONE 25 MG TAB PO SCH (08:26)
[2021-02-01] MEDS: VITAMIN E (DL,TOCOPHERYL ACET) 400 UNIT (180 MG) CAP PO SCH (08:26)
[2021-02-01] MEDS: FLUTICASONE 50MCG/SPRAY NASAL 16GM EA NOSTRIL SCH (08:31)
--- NOTE | 2021-02-01 10:23 | P.PN ---
Subjective Progress Note Date: 02/01/21 Principal diagnosis: Acute on chronic hypoxic respiratory failure related to multiple etiologies including chronic congestive heart failure, COPD Bilateral lower extremity cellulitis Acute on chronic diastolic heart failure Chronic paroxysmal atrial fibrillation with RVR Electrolyte imbalance related to hyponatremia Hypertension hypertensive cardiovascular disease Dyslipidemia coronary artery disease 02/01/2021, patient seen eval reexamined during the rounds currently patient is on high flow nasal cannula 30 L/m, patient has a sudden onset of respiratory distress and had a rapid response initially was placed on the BiPAP and given Lasix with that slight improvement is present, able to come off of BiPAP now saturation is 96-98% on 30 L, his urine is positive for Klebsiella pneumonia, patient has been on broad-spectrum antibiotics, chest x-ray performed at rapid response continue show patchy bilateral infiltrate due to chronic pulmonary fibrosis with some component of fluid overload, patient has received Lasix, would recommend to continue Lasix, continue BiPAP machine at nighttime and supplemental oxygen during day with slow taper 01/29/2021, overall remains stable, using oxygen off and on, hemodynamic status stable, remains afebrile, oxygen saturation 90% on 4 L, urine culture came back positive for Klebsiella 01/27/2021, patient seen eval examined during the rounds labs reviewed medications reviewed care plan discussed, patient remains on 2 L oxygen oxygen saturation remained stable shortness of breath stable denies any cough or sputum production, currently on broad-spectrum antibiotics for cellulitis of the legs, edema appears to be improving Patient is a 75-year-old male well-known to [place] patient admitted into the hospital with swelling and cellulitis of the lower extremity, patient has a long-standing history of congestive heart failure, developed cellulitis which has been marked patient remains on broad-spectrum antibiotics, patient has multiple ALLERGIES and COPD as well, also has issues associated with the BPH, GERD, COPD, congestive heart failure, history of multiple CVAs and TIAs, memory impairment, recent pneumonia as well as sleep disorder breathing and sleep apnea, patient finished therapy of the aspiration pneumonia, her sputum cleared him is positive for MSSA patient was discharged on oral Augmentin, patient last few days have progressive swelling of the lower extremity up to mid thigh level, the chest x-ray performed at the time admission revealed interstitial edema Objective - Vital Signs Vital signs: Vital Signs Temp 98.4 F 02/01/21 08:00 Pulse 64 02/01/21 08:00 Resp 20 02/01/21 08:00 BP 110/69 02/01/21 08:00 Pulse Ox 96 02/01/21 08:00 Intake & Output 01/31/21 02/01/21 02/01/21 18:59 06:59 18:59 Output Total 500 1550 Balance -500 -1550 Weight 114 kg Output: Urine 500 1550 Other: Voiding Method Indwelling Catheter Indwelling Catheter - Exam - Constitutional General appearance: disheveled, mild distress, morbidly obese - EENT Eyes: EOMI, PERRLA Ears: bilateral: normal - Neck Neck: normal ROM Carotids: bilateral: upstroke normal Thyroid: bilateral: normal size - Respiratory Respiratory: bilateral: diminished, positive bilateral crackles - Cardiovascular Rhythm: regular Heart sounds: normal: S1, S2 - Gastrointestinal General gastrointestinal: normal bowel sounds, soft - Neurologic Neurologic: CNII-XII intact - Musculoskeletal Musculoskeletal: gait normal, generalized weakness, strength equal bilaterally - Psychiatric Psychiatric: A&O x's 3, appropriate affect, intact judgment & insight - Labs CBC & Chem 7: 01/31/21 06:16 01/31/21 06:16 Labs: Abnormal Lab Results - Last 24 Hours (Table) 01/31/21 01/31/21 01/31/21 Range/Units 06:16 06:16 17:29 RBC 3.74 L (4.40-5.60) X 10*6/uL Hgb 9.8 L (13.0-17.0) g/dL Hct 32.1 L (39.6-50.0) % MCH 26.2 L (27.0-32.0) pg MCHC 30.5 L (32.0-37.0) g/dL RDW 18.5 H (11.5-14.5) % Immature Gran # 0.13 H (0.00-0.04) X 10*3/uL Monocytes # 1.46 H (0.20-1.00) X 10*3/uL Sodium 133 L (135-145) mmol/L Anion Gap 3.40 L (4.00-12.00) mmol/L BUN/Creatinine Ratio 23.33 H (12.00-20.00) Ratio Glucose 50 L (70-110) mg/dL POC Glucose (mg/dL) 118 H (75-99) mg/dL Calcium 8.1 L (8.7-10.3) mg/dL Alkaline Phosphatase 212 H (41-126) U/L Total Protein 5.0 L (6.2-8.2) g/dL Albumin 2.90 L (3.80-4.90) g/dL Albumin/Globulin Ratio 1.38 L (1.60-3.17) g/dL 01/31/21 02/01/21 02/01/21 Range/Units 20:32 01:09 08:11 RBC (4.40-5.60) X 10*6/uL Hgb (13.0-17.0) g/dL Hct (39.6-50.0) % MCH (27.0-32.0) pg MCHC (32.0-37.0) g/dL RDW (11.5-14.5) % Immature Gran # (0.00-0.04) X 10*3/uL Monocytes # (0.20-1.00) X 10*3/uL Sodium (135-145) mmol/L Anion Gap (4.00-12.00) mmol/L BUN/Creatinine Ratio (12.00-20.00) Ratio Glucose (70-110) mg/dL POC Glucose (mg/dL) 256 H 151 H 104 H (75-99) mg/dL Calcium (8.7-10.3) mg/dL Alkaline Phosphatase (41-126) U/L Total Protein (6.2-8.2) g/dL Albumin (3.80-4.90) g/dL Albumin/Globulin Ratio (1.60-3.17) g/dL Microbiology - Last 24 Hours (Table) 01/30/21 23:35 Urine Culture - Preliminary Urine,Voided Assessment and Plan Assessment: Suspect evidence of fluid overload with pulmonary fibrosis agree with diuresis BiPAP and supplemental oxygen Klebsiella urinary tract infection Acute on chronic hypoxic respiratory failure related to multiple etiologies including chronic congestive heart failure, COPD Bilateral lower extremity cellulitis Acute on chronic diastolic heart failure Chronic paroxysmal atrial fibrillation with RVR Electrolyte imbalance related to hyponatremia Hypertension hypertensive cardiovascular disease Dyslipidemia coronary artery disease Plan: Overall plan is to continue gently diureses, along with IV antibiotics, continue supplemental oxygen, continue deep breathing sense incentive spirometry, further plan of care as per clinical response to therapy Time with Patient: Greater than 30
[2021-02-01 11:29] LABS: Albumin 2.8 g/dL (3.80-4.90); Albumin/Globulin Ratio 1.4 (1.60-3.17); Anion Gap 5.9 mmol/L (4.00-12.00); BUN/Creat Ratio 22.86 Ratio (12.00-20.00); Carbon Dioxide 29.1 mmol/L (21.6-31.8); Non-African American GFR(CKD) 92.3 (60.0-200.0); Potassium 4.5 mmol/L (3.5-5.5); Total Bilirubin 0.8 mg/dL (0.3-1.2); Total Protein 4.8 g/dL (6.2-8.2)
[2021-02-01 11:54] LABS: Glucose,Whole Blood 147 mg/dL (75-99)
[2021-02-01] MEDS: FUROSEMIDE 10 MG/ML 4 ML VIAL IV SCH ×2 (12:32→19:57)
[2021-02-01 12:47] LABS: Basophils # (A) 0.06 X 10*3/uL (0.00-0.10); Basophils % (A) 0.8 %; Eosinophils # (A) 0.04 X 10*3/uL (0.04-0.35); Eosinophils % (A) 0.5 %; HGB 9.6 g/dL (13.0-17.0); Lymphocytes # (A) 1.29 X 10*3/uL (0.90-5.00); Lymphocytes % (A) 17.1 %; MCH 26.1 pg (27.0-32.0); Monocytes # (A) 1.36 X 10*3/uL (0.20-1.00); Neutrophils # (A) 4.68 X 10*3/uL (1.80-7.70); Neutrophils % (A) 62.1 %; Platelet Count 199 X 10*3/uL (140-440); RBC 3.68 X 10*6/uL (4.40-5.60); RDW 18.6 % (11.5-14.5); WBC 7.54 X 10*3/uL (4.50-10.00)
--- NOTE | 2021-02-01 14:01 | P.PN ---
Subjective Progress Note Date: 02/01/21 HISTORY OF PRESENT ILLNESS: This is a 75-year-old male with a past medical history significant for congestive heart failure, diabetes mellitus, pulmonary fibrosis, COPD with home oxygen use, and paroxysmal atrial fibrillation. Patient follows with primary care physician out of the [place] but does not follow with a turf keeper regularly. We have been asked to see the patient in consultation for atrial fibrillation. Patient examined at the bedside. Patient was recently hospitalized secondary to bilateral pneumonia. Patient was found to have atrial fibrillation at that time. He was initially started on anticoagulation however this was discontinued as patient was deemed high risk for anticoagulation. Patient was discharged to [facility]. He presented back to the hospital with increased lower extremity edema. He was found to have bilateral lower extremity cellulitis and was started on antibiotics. EKG reveals atrial flutter with 2-1 conduction. Telemetry currently reveals atrial fibrillation with controlled ventricular rate Chest xray pulmonary infiltrates are mostly interstitial and appears slightly worse than last exam. There is evidence for significant interstitial process. Acute pneumonia is possible in the left side. Laboratory data: WBC 4.4. Hemoglobin 10.0. Platelet count 93. Sodium 127. Potassium 5.1. BUN 18. Creatinine 0.59. Current home cardiac medications include spironolactone 75 mg daily, Midodrine 10mg TID, metoprolol tartrate 25 mg 3 times a day, Lasix 60 mg daily, Cardizem 60 mg 3 times a day, digoxin 62.5mcg daily, and aspirin 81mg daily Patient underwent Lexiscan stress test in 2018 which was abnormal. He subsequently underwent cardiac catheterization in [address] Herman revealing normal coronary arteries Echocardiogram completed on 12/28/2020 revealed ejection fraction 50-55%, moderate aortic stenosis, mild mitral regurgitation, and mild tricuspid regurgitation 02/01/2021 Cardiology was reconsulted for CHF. Patient examined at the bedside with Dr. Handley. Patient went into respiratory distress overnight requiring Bipap and IV lasix. Patient is currently on a nasal cannula. He reports his shortness of breath has improved but not resolved. He reports increased lower extremity edema. CXR reveals extensive pulmonary infiltrates. PHYSICAL EXAM: VITAL SIGNS: Reviewed. GENERAL: Well-developed in no acute distress. HEENT: Head is normocephalic. Pupils are equal, round. Sclerae anicteric. Mucous membranes of the mouth are moist. Neck supple. No JVD or thyromegaly LUNGS: Respirations even and unlabored. Lungs with bibasilar rales noted. HEART: Regular rate and rhythm. S1 and S2 heard. Systolic murmur noted. ABDOMEN: Soft. Nondistended. Nontender. EXTREMITIES: Normal range of motion. No clubbing or cyanosis. Peripheral pulses intact. Bilateral lower extremity edema present. ASSESSMENT: Lower extremity cellulitis Paroxysmal atrial fibrillation with RVR, not on long-term anticoagulation due to history of bleeding Recent hospitalization for bilateral pneumonia and sepsis Pulmonary fibrosis with home oxygen use Acute exacerbation of chronic diastolic congestive heart failure Hypertension Hyponatremia Valvular heart disease PLAN: Continue current cardiac medications Discontinue oral lasix. Begin IV lasix 40mg Q12 hours Monitor kidney function Daily weights Accurate I&O Further recommendations pending patient course Nurse practitioner note has been reviewed by physician. Signing provider agrees with the documented findings, assessment, and plan of care. Objective - Vital Signs Vital signs: Vital Signs Temp 98.4 F 02/01/21 08:00 Pulse 114 H 02/01/21 11:51 Resp 20 02/01/21 08:00 BP 110/69 02/01/21 08:00 Pulse Ox 96 02/01/21 08:00 Intake & Output 01/31/21 02/01/21 02/01/21 18:59 06:59 18:59 Output Total 500 1550 Balance -500 -1550 Weight 114 kg Output: Urine 500 1550 Other: Voiding Method Indwelling Catheter Indwelling Catheter Indwelling Catheter - Labs CBC & Chem 7: 02/01/21 06:20 02/01/21 06:20 Labs: Abnormal Lab Results - Last 24 Hours (Table) 01/31/21 01/31/21 02/01/21 Range/Units 17:29 20:32 01:09 RBC (4.40-5.60) X 10*6/uL Hgb (13.0-17.0) g/dL Hct (39.6-50.0) % MCH (27.0-32.0) pg MCHC (32.0-37.0) g/dL RDW (11.5-14.5) % Immature Gran # (0.00-0.04) X 10*3/uL Monocytes # (0.20-1.00) X 10*3/uL BUN/Creatinine Ratio (12.00-20.00) Ratio Glucose (70-110) mg/dL POC Glucose (mg/dL) 118 H 256 H 151 H (75-99) mg/dL Calcium (8.7-10.3) mg/dL Alkaline Phosphatase (41-126) U/L Total Protein (6.2-8.2) g/dL Albumin (3.80-4.90) g/dL Albumin/Globulin Ratio (1.60-3.17) g/dL 02/01/21 02/01/21 02/01/21 Range/Units 06:20 06:20 08:11 RBC 3.68 L (4.40-5.60) X 10*6/uL Hgb 9.6 L (13.0-17.0) g/dL Hct 32.0 L (39.6-50.0) % MCH 26.1 L (27.0-32.0) pg MCHC 30.0 L (32.0-37.0) g/dL RDW 18.6 H (11.5-14.5) % Immature Gran # 0.11 H (0.00-0.04) X 10*3/uL Monocytes # 1.36 H (0.20-1.00) X 10*3/uL BUN/Creatinine Ratio 22.86 H (12.00-20.00) Ratio Glucose 113 H (70-110) mg/dL POC Glucose (mg/dL) 104 H (75-99) mg/dL Calcium 8.0 L (8.7-10.3) mg/dL Alkaline Phosphatase 190 H (41-126) U/L Total Protein 4.8 L (6.2-8.2) g/dL Albumin 2.80 L (3.80-4.90) g/dL Albumin/Globulin Ratio 1.40 L (1.60-3.17) g/dL 02/01/21 Range/Units 11:50 RBC (4.40-5.60) X 10*6/uL Hgb (13.0-17.0) g/dL Hct (39.6-50.0) % MCH (27.0-32.0) pg MCHC (32.0-37.0) g/dL RDW (11.5-14.5) % Immature Gran # (0.00-0.04) X 10*3/uL Monocytes # (0.20-1.00) X 10*3/uL BUN/Creatinine Ratio (12.00-20.00) Ratio Glucose (70-110) mg/dL POC Glucose (mg/dL) 147 H (75-99) mg/dL Calcium (8.7-10.3) mg/dL Alkaline Phosphatase (41-126) U/L Total Protein (6.2-8.2) g/dL Albumin (3.80-4.90) g/dL Albumin/Globulin Ratio (1.60-3.17) g/dL Microbiology - Last 24 Hours (Table) 01/30/21 23:35 Urine Culture - Preliminary Urine,Voided
[2021-02-01 17:20] LABS: Glucose,Whole Blood 129 mg/dL (75-99)
--- NOTE | 2021-02-01 19:02 | P.PN ---
Subjective Progress Note Date: 02/01/21 Duke Sánchez, is a 75 year old male who presented to [facility] emergency room with a chief complaint of bilateral lower extremity swelling erythema and tenderness He was evaluated in the emergency room vital examination on presentation revealed a temperature of 98.2 pulse 133 respiration 18 blood pressure 117/62 pulse ox 96% on 4 L nasal cannula Laboratory data reveals sodium was low at 127 BUN 18 creatinine 0.59 alkaline phosphatase 213 white blood count count 4.4 hemoglobin 10.0 platelet count low at 93 Testing in the emergency room revealed chest x-ray revealed interstitial pul monary infiltrate suggestive of interstitial fibrosis, with possible left lower lobe pneumonia, EKG revealed atrial flutter with 21 conduction with a heart rate of 129 Patient was admitted to medical floor for further evaluation and treatment Past medical history is significant for Congestive Heart Failure, COPD, history of insulin-dependent Diabetes Mellitus, history of stroke, Hyperlipidemia, H ypertension, Liver Disease, Memory Impairment, Pneumonia, Prostate Disorder, Seizure Disorder, obstructive sleep apnea maintained on CPAP, history of benign prostatic hypertrophy, gastroesophageal reflux disease, history of chronic hepatitis C, history of esophageal viruses with multiple episodes of bleeding in the past, history of myasthenia gravis and history of depression On 01/26/2021 Patient was seen and examined on the medical floor, he is alert and oriented x 3 in no distress, he denies any complaints there is no fever or chills no headache or dizziness no chest pain no shortness of breath no palpitation no cough no nausea or vomiting no abdominal pain no diarrhea no blood in the stools no burning with urination no frequency or urgency and no hematuria, there is no weakness or numbness in any of the extremities no change in vision speech or gait. Patient is complaining of runny nose and requesting a noses pray will add Flonase nose spray at this time he denies any other compl aints. On 01/27/2021 patient is alert and oriented 3. Patient's lower extremity cellulites does appear to be improving. Patient remains on IV Unasyn. Infectious disease and pulmonary services are following. Wound care service is consulted. PT OT consulted. Social work consulted for discharge planning. at this time patient denies chest pain. Patient denies nausea vomiting or diarrhea. Patient denies any urinary burning or frequency On 01/28/2021 Patient was seen and examined on the medical floor, he is alert and oriented x 3 in no distress, he was complaining of nausea and generalized weakness this morning otherwise he denies any complaints there is no fever or chills no headache or dizziness no chest pain no shortness of breath no palpitation no cough or vomiting no abdominal pain no diarrhea no blood in the stools no burning with urination no frequency or urgency and no hematuria, there is no weakness or numbness in any of the extremities no change in vision speech or gait. On 01/29/2021 patient is alert and oriented 3. Patient remains on IV Unasyn. Infectious disease, pulmonary services and wound care service is following. Discussed case with social media marketing manager discharge planning to [facility]. At this time patient denies chest pain or shortness breath. Patient denies nausea vomiting or diarrhea. Patient denies any urinary frequency. On 01/30/2021 Patient was seen and examined on the medical floor, he is alert and oriented x 3 in no distress, he denies any complaints there is no fever or chills no headache or dizziness no chest pain no shortness of breath no palpitation no cough no nausea or vomiting no abdominal pain no diarrhea no blood in the stools no burning with urination no frequency or urgency and no hematuria, there is no weakness or numbness in any of the extremities no change in vision speech or gait., Patient had an episode of hypoglycemia this morning with blurred vision, otherwise he denies any complaints at this time On 01/31/2021 patient is alert and oriented 3. Patient complaining of increased fluid retention. Will resume patient's home Lasix and Aldactone that was currently on hold due to hyponatremia. Cardiology services have been consulted. Lung sounds are clear to auscultation. Patient reports he is having some shortness of breath will order chest x-ray. Patient denies chest pain. Patient denies nausea vomiting or diarrhea. Patient denies any urinary burning or frequency. On 02/01/2021 patient was seen and examined on the medical floor he is somnolent arousable answer questions appropriately when aroused, he had an episode of severe shortness of breath early this morning 18 where called patient received 2 doses of IV Lasix 40 mg he improved significantly dose of Lasix was changed to 40 mg IV every 12 hours, at this time patient is resting comfortably he denies any chest pain or shortness of breath Objective - Vital Signs Vital signs: Vital Signs Temp 98.4 F 02/01/21 08:00 Pulse 114 H 02/01/21 11:51 Resp 20 02/01/21 08:00 BP 110/69 02/01/21 08:00 Pulse Ox 96 02/01/21 08:00 Intake & Output 01/31/21 02/01/21 02/01/21 18:59 06:59 18:59 Output Total 500 1550 Balance -500 -1550 Weight 114 kg Output: Urine 500 1550 Other: Voiding Method Indwelling Catheter Indwelling Catheter Indwelling Catheter - Exam In general patient is alert and oriented x 3 in no distress HEENT head normocephalic and atraumatic Neck is supple no JVD no goiter no lymphadenopathy no carotid bruit Chest examination is clear to auscultation no crackles no wheezing Cardiac exam reveals regular heart sounds S1 and S2 no gallops no murmurs Abdomen is soft nontender no organomegaly with normal bowel sounds Extremity exam reveals mild edema bilaterally with bilateral pretibial erythema Neurological examination reveals no gross focal deficits - Labs CBC & Chem 7: 02/01/21 06:20 02/01/21 06:20 Labs: Abnormal Lab Results - Last 24 Hours (Table) 01/31/21 01/31/21 02/01/21 Range/Units 17:29 20:32 01:09 RBC (4.40-5.60) X 10*6/uL Hgb (13.0-17.0) g/dL Hct (39.6-50.0) % MCH (27.0-32.0) pg MCHC (32.0-37.0) g/dL RDW (11.5-14.5) % Immature Gran # (0.00-0.04) X 10*3/uL Monocytes # (0.20-1.00) X 10*3/uL BUN/Creatinine Ratio (12.00-20.00) Ratio Glucose (70-110) mg/dL POC Glucose (mg/dL) 118 H 256 H 151 H (75-99) mg/dL Calcium (8.7-10.3) mg/dL Alkaline Phosphatase (41-126) U/L Total Protein (6.2-8.2) g/dL Albumin (3.80-4.90) g/dL Albumin/Globulin Ratio (1.60-3.17) g/dL 02/01/21 02/01/21 02/01/21 Range/Units 06:20 06:20 08:11 RBC 3.68 L (4.40-5.60) X 10*6/uL Hgb 9.6 L (13.0-17.0) g/dL Hct 32.0 L (39.6-50.0) % MCH 26.1 L (27.0-32.0) pg MCHC 30.0 L (32.0-37.0) g/dL RDW 18.6 H (11.5-14.5) % Immature Gran # 0.11 H (0.00-0.04) X 10*3/uL Monocytes # 1.36 H (0.20-1.00) X 10*3/uL BUN/Creatinine Ratio 22.86 H (12.00-20.00) Ratio Glucose 113 H (70-110) mg/dL POC Glucose (mg/dL) 104 H (75-99) mg/dL Calcium 8.0 L (8.7-10.3) mg/dL Alkaline Phosphatase 190 H (41-126) U/L Total Protein 4.8 L (6.2-8.2) g/dL Albumin 2.80 L (3.80-4.90) g/dL Albumin/Globulin Ratio 1.40 L (1.60-3.17) g/dL 02/01/21 Range/Units 11:50 RBC (4.40-5.60) X 10*6/uL Hgb (13.0-17.0) g/dL Hct (39.6-50.0) % MCH (27.0-32.0) pg MCHC (32.0-37.0) g/dL RDW (11.5-14.5) % Immature Gran # (0.00-0.04) X 10*3/uL Monocytes # (0.20-1.00) X 10*3/uL BUN/Creatinine Ratio (12.00-20.00) Ratio Glucose (70-110) mg/dL POC Glucose (mg/dL) 147 H (75-99) mg/dL Calcium (8.7-10.3) mg/dL Alkaline Phosphatase (41-126) U/L Total Protein (6.2-8.2) g/dL Albumin (3.80-4.90) g/dL Albumin/Globulin Ratio (1.60-3.17) g/dL Microbiology - Last 24 Hours (Table) 01/30/21 23:35 Urine Culture - Preliminary Urine,Voided Assessment and Plan Plan: Bilateral lower extremity cellulitis Atrial fibrillation with rapid ventricular response Hyponatremia sodium on presentation 127 Underlying history of insulin-dependent diabetes mellitus Underlying history of hypertension Underlying history of hyperlipidemia Underlying history of coronary artery disease Underlying history of congestive heart failure Poor nutritional status with moderate protein calorie malnutrition started on insure supplements Increased fluid retention. Aldactone and Lasix resumed. Cardiology services have been consulted. Chest x-ray ordered At this time patient is admitted to medical floor, he was started on IV antibiotics, infectious disease following Infectious disease consultation and cardiology consultation were requested She maintained on IV Unasyn
[2021-02-01 19:44] LABS: Glucose,Whole Blood 155 mg/dL (75-99)
[2021-02-01] MEDS: FINASTERIDE 5 MG TAB PO SCH (19:56)
[2021-02-01] MEDS: LAMIVUDINE 150 MG PO SCH (20:07)
[2021-02-01] MEDS: INSULIN DETEMIR (LEVEMIR) 100 UNIT/ML SYR SQ SCH (22:01)
[2021-02-01] MEDS: ALPRAZolam 0.25 MG TAB PO PRN (22:01)
[2021-02-02] MEDS: PYRIDOSTIGMINE 60 MG TAB PO SCH ×6 (00:47→22:08)
[2021-02-02] MEDS: AMPICILLIN-SULBACTAM 3 GM in SODIUM CHLORIDE 0.9% 100 ML IVPB SCH ×4 (03:09→22:08)
[2021-02-02] MEDS: DILTIAZEM ORAL 60 MG TAB PO SCH (05:49)
[2021-02-02] MEDS: DIGOXIN 62.5 MCG TAB PO SCH (05:49)
[2021-02-02] MEDS: IPRATROPIUM-ALBUTEROL 3 ML NEB INHALATION SCH ×4 (07:00→20:33)
[2021-02-02 07:01] LABS: Glucose,Whole Blood 68 mg/dL (75-99)
[2021-02-02] MEDS: INSULIN ASPART (NovoLOG) 100 UNIT/ML VIAL SQ SCH ×4 (07:02→22:09)
[2021-02-02 07:23] LABS: Glucose,Whole Blood 73 mg/dL (75-99)
[2021-02-02 07:37] LABS: Anisocytosis Slight; Basophils # (A) 0.1 k/uL (0-0.2); Basophils % (A) 1 %; Eosinophils # (A) 0.1 k/uL (0-0.7); Eosinophils % (A) 1 %; HCT 34.7 % (39.0-53.0); HGB 10.9 gm/dL (13.0-17.5); Hypochromasia Moderate; Lymphocytes % (A) 18 %; MCH 27.3 pg (25.0-35.0); MCHC 31.3 g/dL (31.0-37.0); MCV 87.1 fL (80.0-100.0); Mean Platelet Volume 7.8; Monocytes # (A) 1.4 k/uL (0-1.0); Monocytes % (A) 13 %; Neutrophils # (A) 6.9 k/uL (1.3-7.7); Neutrophils % (A) 64 %; Platelet Count 239 k/uL (150-450); RBC 3.98 m/uL (4.30-5.90); RDW 17.8 % (11.5-15.5); WBC 10.8 k/uL (3.8-10.6)
[2021-02-02] MEDS: SPIRONOLACTONE 25 MG TAB PO SCH (08:12)
[2021-02-02] MEDS: MULTIVITAMINS, THERA 1 EACH TAB PO SCH (08:12)
[2021-02-02] MEDS: MAGNESIUM OXIDE 400 MG TAB PO SCH (08:12)
[2021-02-02] MEDS: CHOLECALCIFEROL 25 MCG (1000 IU) TABLET PO SCH (08:12)
[2021-02-02] MEDS: CYANOCOBALAMIN 500 MCG TAB PO SCH (08:12)
[2021-02-02] MEDS: PANTOPRAZOLE 40 MG TABLET PO SCH (08:12)
[2021-02-02] MEDS: lamoTRIgine 100 MG TAB PO SCH ×2 (08:12→22:08)
[2021-02-02] MEDS: FUROSEMIDE 10 MG/ML 4 ML VIAL IV SCH ×2 (08:12→22:09)
[2021-02-02] MEDS: ASPIRIN 81 MG PO SCH (08:12)
[2021-02-02] MEDS: MIDODRINE 5 MG TAB PO SCH ×3 (08:12→17:39)
[2021-02-02] MEDS: VITAMIN E (DL,TOCOPHERYL ACET) 400 UNIT (180 MG) CAP PO SCH (08:15)
[2021-02-02] MEDS: FLUTICASONE 50MCG/SPRAY NASAL 16GM EA NOSTRIL SCH (08:17)
[2021-02-02] MEDS: METOPROLOL TARTRATE 25 MG TAB PO SCH ×2 (08:31→22:10)
--- NOTE | 2021-02-02 09:30 | PN ---
PROGRESS NOTE DATE OF SERVICE: 02/01/2021 REASON FOR FOLLOWUP: Bilateral lower extremity cellulitis. Positive culture. INTERVAL HISTORY: Patient is afebrile. The patient is breathing comfortably. The patient denies having any chest pain, shortness of breath. He is complaining of some cough. No abdominal pain. No worsening pain to the lower extremity. PHYSICAL EXAMINATION: Blood pressure 130/86, pulse of 86, temperature is 97.6, 94% on room air. General description is an elderly male lying in bed in no distress. Respiratory system: Unlabored breathing, clear to auscultation anteriorly. Heart S1, S2. Regular rate and rhythm. Abdomen soft, no tenderness. Bilateral leg swelling persists. Redness has decreased. LABS: Hemoglobin is 9.6, white count 7.5, BUN of 13 and 0.7. Repeat urine is pending. DIAGNOSTIC IMPRESSION AND PLAN: 1. Patient with bilateral lower extremity cellulitis with diffuse swelling and redness, likely streptococcal disease. The patient responded to Unasyn, to continue. Transition to oral Augmentin on discharge. 2. Positive urine culture with multidrug resistant Gram-negative. Repeat urine culture is pending. Continue supportive care. MMODL / IJN: [id number] /
[2021-02-02 11:21] LABS: Glucose,Whole Blood 73 mg/dL (75-99)
--- NOTE | 2021-02-02 12:08 | XR ---
EXAMINATION TYPE: XR chest 1V portable DATE OF EXAM: 02/02/2021 COMPARISON: 02/01/2021 HISTORY: Shortness of breath TECHNIQUE: Single frontal view of the chest is obtained. FINDINGS: Diffuse bilateral infiltrates small bilateral pleural effusions. No pneumothorax. Heart si ze is normal. Atherosclerotic change of the aorta. Air within the esophagus noted in the trachea is s omewhat prominent. Correlate clinically. IMPRESSION: Diffuse bilateral infiltrates correlate for diffuse pneumonia or ARDS
--- NOTE | 2021-02-02 13:33 | P.PN ---
Subjective Progress Note Date: 02/02/21 HISTORY OF PRESENT ILLNESS: This is a 75-year-old male with a past medical history significant for congestive heart failure, diabetes mellitus, pulmonary fibrosis, COPD with home oxygen use, and paroxysmal atrial fibrillation. 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 We have been asked to see the patient in consultation for atrial fibrillation. Patient examined at the bedside. Patient was recently hospitalized secondary to bilateral pneumonia. Patient was found to have atrial fibrillation at that time. He was initially started on anticoagulation however this was discontinued as patient was deemed high risk for anticoagulation. Patient was discharged to [facility]. He presented back to the hospital with increased lower extremity edema. He was found to have bilateral lower extremity cellulitis and was started on antibiotics. EKG reveals atrial flutter with 2-1 conduction. Telemetry currently reveals atrial fibrillation with controlled ventricular rate Chest xray pulmonary infiltrates are mostly interstitial and appears slightly worse than last exam. There is evidence for significant interstitial process. Acute pneumonia is possible in the left side. Laboratory data: WBC 4.4. Hemoglobin 10.0. Platelet count 93. Sodium 127. Potassium 5.1. BUN 18. Creatinine 0.59. Current home cardiac medications include spironolactone 75 mg daily, Midodrine 10mg TID, metoprolol tartrate 25 mg 3 times a day, Lasix 60 mg daily, Cardizem 60 mg 3 times a day, digoxin 62.5mcg daily, and aspirin 81mg daily Patient underwent Lexiscan stress test in 2018 which was abnormal. He subsequently underwent cardiac catheterization in [address] Herman revealing normal coronary arteries Echocardiogram completed on 12/28/2020 revealed ejection fraction 50-55%, moderate aortic stenosis, mild mitral regurgitation, and mild tricuspid regurgitation 02/01/2021 Cardiology was reconsulted for CHF. Patient examined at the bedside with Dr. Handley. Patient went into respiratory distress overnight requiring Bipap and IV lasix. Patient is currently on a nasal cannula. He reports his shortness of breath has improved but not resolved. He reports increased lower extremity edema. CXR reveals extensive pulmonary infiltrates. 02/02/2021 Patient examined at the bedside. Patient is currently wearing a Bipap. He reports shortness of breath. He also reports palpitations. Telemetry reveals afib with HR 90-120. Patient has mild improvement in his lower extremity edema. Chest xray from today reveals bilateral diffuse infiltrates correlate for diffuse pneumonia or ARDs. PHYSICAL EXAM: VITAL SIGNS: Reviewed. GENERAL: Well-developed in no acute distress. HEENT: Head is normocephalic. Pupils are equal, round. Sclerae anicteric. Mucous membranes of the mouth are moist. Neck supple. No JVD or thyromegaly LUNGS: Respirations even and unlabored. Lungs with bibasilar rales noted. HEART: Irregular rate and rhythm. S1 and S2 heard. Systolic murmur noted. ABDOMEN: Soft. Nondistended. Nontender. EXTREMITIES: Normal range of motion. No clubbing or cyanosis. Peripheral pulses intact. Bilateral lower extremity edema present. ASSESSMENT: Bilateral infilitrates suggestive of bilateral pneumonia, per CXR 02/02/2021 Lower extremity cellulitis Paroxysmal atrial fibrillation with RVR, not on long-term anticoagulation due to history of bleeding Recent hospitalization for bilateral pneumonia and sepsis Pulmonary fibrosis with home oxygen use Acute exacerbation of chronic diastolic congestive heart failure Hypertension Hyponatremia Valvular heart disease PLAN: Continue current cardiac medications Metoprolol was increased yesterday to 50mg BID Discontinue Digoxin Increase Cardizem to 90mg TID Continue telemetry monitoring Continue IV lasix 40mg Q12 hours Monitor kidney function Daily weights Accurate I&O Further recommendations pending patient course Nurse practitioner note has been reviewed by physician. Signing provider agrees with the documented findings, assessment, and plan of care. Objective - Vital Signs Vital signs: Vital Signs Temp 97.8 F 02/02/21 08:00 Pulse 126 H 02/02/21 12:13 Resp 22 02/02/21 12:13 BP 123/76 02/02/21 08:00 Pulse Ox 91 L 02/02/21 08:00 Intake & Output 02/01/21 02/02/21 02/02/21 18:59 06:59 18:59 Output Total 1700 1000 Balance -1700 -1000 Weight 113 kg Output: Urine 1700 1000 Other: Voiding Method Indwelling Catheter Indwelling Catheter Indwelling Catheter - Labs CBC & Chem 7: 02/02/21 06:42 02/01/21 06:20 Labs: Abnormal Lab Results - Last 24 Hours (Table) 02/01/21 02/01/21 02/02/21 Range/Units 17:18 19:43 06:42 WBC 10.8 H (3.8-10.6) k/uL RBC 3.98 L (4.30-5.90) m/uL Hgb 10.9 L (13.0-17.5) gm/dL Hct 34.7 L (39.0-53.0) % RDW 17.8 H (11.5-15.5) % Monocytes # 1.4 H (0-1.0) k/uL POC Glucose (mg/dL) 129 H 155 H (75-99) mg/dL 02/02/21 02/02/21 02/02/21 Range/Units 07:00 07:22 11:20 WBC (3.8-10.6) k/uL RBC (4.30-5.90) m/uL Hgb (13.0-17.5) gm/dL Hct (39.0-53.0) % RDW (11.5-15.5) % Monocytes # (0-1.0) k/uL POC Glucose (mg/dL) 68 L 73 L 73 L (75-99) mg/dL
[2021-02-02 14:50] LABS: Albumin 3.1 g/dL (3.80-4.90); Albumin/Globulin Ratio 1.35 (1.60-3.17); Anion Gap 9.4 mmol/L (4.00-12.00); BUN/Creat Ratio 21.43 Ratio (12.00-20.00); Calcium 8.3 mg/dL (8.7-10.3); Carbon Dioxide 27.6 mmol/L (21.6-31.8); Globulin 2.3 g/dL (1.6-3.3); Non-African American GFR(CKD) 92.3 (60.0-200.0); Potassium 4.2 mmol/L (3.5-5.5); Total Protein 5.4 g/dL (6.2-8.2)
[2021-02-02] MEDS: DILTIAZEM ORAL 30 MG TAB PO SCH ×2 (15:57→22:11)
[2021-02-02 17:09] LABS: Glucose,Whole Blood 124 mg/dL (75-99)
--- NOTE | 2021-02-02 17:14 | P.PN ---
Subjective Progress Note Date: 02/02/21 Duke Sánchez, is a 75 year old male who presented to [facility] emergency room with a chief complaint of bilateral lower extremity swelling erythema and tenderness He was evaluated in the emergency room vital examination on presentation revealed a temperature of 98.2 pulse 133 respiration 18 blood pressure 117/62 pulse ox 96% on 4 L nasal cannula Laboratory data reveals sodium was low at 127 BUN 18 creatinine 0.59 alkaline phosphatase 213 white blood count count 4.4 hemoglobin 10.0 platelet count low at 93 Testing in the emergency room revealed chest x-ray revealed interstitial pul monary infiltrate suggestive of interstitial fibrosis, with possible left lower lobe pneumonia, EKG revealed atrial flutter with 21 conduction with a heart rate of 129 Patient was admitted to medical floor for further evaluation and treatment Past medical history is significant for Congestive Heart Failure, COPD, history of insulin-dependent Diabetes Mellitus, history of stroke, Hyperlipidemia, H ypertension, Liver Disease, Memory Impairment, Pneumonia, Prostate Disorder, Seizure Disorder, obstructive sleep apnea maintained on CPAP, history of benign prostatic hypertrophy, gastroesophageal reflux disease, history of chronic hepatitis C, history of esophageal viruses with multiple episodes of bleeding in the past, history of myasthenia gravis and history of depression On 01/26/2021 Patient was seen and examined on the medical floor, he is alert and oriented x 3 in no distress, he denies any complaints there is no fever or chills no headache or dizziness no chest pain no shortness of breath no palpitation no cough no nausea or vomiting no abdominal pain no diarrhea no blood in the stools no burning with urination no frequency or urgency and no hematuria, there is no weakness or numbness in any of the extremities no change in vision speech or gait. Patient is complaining of runny nose and requesting a noses pray will add Flonase nose spray at this time he denies any other compl aints. On 01/27/2021 patient is alert and oriented 3. Patient's lower extremity cellulites does appear to be improving. Patient remains on IV Unasyn. Infectious disease and pulmonary services are following. Wound care service is consulted. PT OT consulted. Social work consulted for discharge planning. at this time patient denies chest pain. Patient denies nausea vomiting or diarrhea. Patient denies any urinary burning or frequency On 01/28/2021 Patient was seen and examined on the medical floor, he is alert and oriented x 3 in no distress, he was complaining of nausea and generalized weakness this morning otherwise he denies any complaints there is no fever or chills no headache or dizziness no chest pain no shortness of breath no palpitation no cough or vomiting no abdominal pain no diarrhea no blood in the stools no burning with urination no frequency or urgency and no hematuria, there is no weakness or numbness in any of the extremities no change in vision speech or gait. On 01/29/2021 patient is alert and oriented 3. Patient remains on IV Unasyn. Infectious disease, pulmonary services and wound care service is following. Discussed case with group social worker discharge planning to [facility]. At this time patient denies chest pain or shortness breath. Patient denies nausea vomiting or diarrhea. Patient denies any urinary frequency. On 01/30/2021 Patient was seen and examined on the medical floor, he is alert and oriented x 3 in no distress, he denies any complaints there is no fever or chills no headache or dizziness no chest pain no shortness of breath no palpitation no cough no nausea or vomiting no abdominal pain no diarrhea no blood in the stools no burning with urination no frequency or urgency and no hematuria, there is no weakness or numbness in any of the extremities no change in vision speech or gait., Patient had an episode of hypoglycemia this morning with blurred vision, otherwise he denies any complaints at this time On 01/31/2021 patient is alert and oriented 3. Patient complaining of increased fluid retention. Will resume patient's home Lasix and Aldactone that was currently on hold due to hyponatremia. Cardiology services have been consulted. Lung sounds are clear to auscultation. Patient reports he is having some shortness of breath will order chest x-ray. Patient denies chest pain. Patient denies nausea vomiting or diarrhea. Patient denies any urinary burning or frequency. On 02/01/2021 patient was seen and examined on the medical floor he is somnolent arousable answer questions appropriately when aroused, he had an episode of severe shortness of breath early this morning 18 where called patient received 2 doses of IV Lasix 40 mg he improved significantly dose of Lasix was changed to 40 mg IV every 12 hours, at this time patient is resting comfortably he denies any chest pain or shortness of breath On 02/02/2021 Patient was seen and examined on the medical floor, he is alert and oriented x 3 in no distress, he is complaining of generalized weakness and fatigue otherwise he denies any complaints there is no fever or chills no headache or dizziness no chest pain no shortness of breath no palpitation no cough no nausea or vomiting no abdominal pain no diarrhea no blood in the stools no burning with urination no frequency or urgency and no hematuria, there is no weakness or numbness in any of the extremities no change in vision speech or gait. Objective - Vital Signs Vital signs: Vital Signs Temp 98.3 F 02/02/21 14:00 Pulse 100 02/02/21 15:31 Resp 18 02/02/21 14:00 BP 128/76 02/02/21 14:00 Pulse Ox 95 02/02/21 14:00 Intake & Output 02/01/21 02/02/21 02/02/21 18:59 06:59 18:59 Output Total 1700 1000 Balance -1700 -1000 Weight 113 kg 113 kg Output: Urine 1700 1000 Other: Voiding Method Indwelling Catheter Indwelling Catheter Indwelling Catheter - Exam In general patient is alert and oriented x 3 in no distress HEENT head normocephalic and atraumatic Neck is supple no JVD no goiter no lymphadenopathy no carotid bruit Chest examination is clear to auscultation no crackles no wheezing Cardiac exam reveals regular heart sounds S1 and S2 no gallops no murmurs Abdomen is soft nontender no organomegaly with normal bowel sounds Extremity exam reveals mild edema bilaterally with bilateral pretibial erythema Neurological examination reveals no gross focal deficits - Labs CBC & Chem 7: 02/02/21 06:42 02/02/21 06:42 Labs: Abnormal Lab Results - Last 24 Hours (Table) 02/01/21 02/01/21 02/02/21 Range/Units 17:18 19:43 06:42 WBC 10.8 H (3.8-10.6) k/uL RBC 3.98 L (4.30-5.90) m/uL Hgb 10.9 L (13.0-17.5) gm/dL Hct 34.7 L (39.0-53.0) % RDW 17.8 H (11.5-15.5) % Monocytes # 1.4 H (0-1.0) k/uL BUN/Creatinine Ratio (12.00-20.00) Ratio POC Glucose (mg/dL) 129 H 155 H (75-99) mg/dL Calcium (8.7-10.3) mg/dL Alkaline Phosphatase (41-126) U/L Total Protein (6.2-8.2) g/dL Albumin (3.80-4.90) g/dL Albumin/Globulin Ratio (1.60-3.17) g/dL 02/02/21 02/02/21 02/02/21 Range/Units 06:42 07:00 07:22 WBC (3.8-10.6) k/uL RBC (4.30-5.90) m/uL Hgb (13.0-17.5) gm/dL Hct (39.0-53.0) % RDW (11.5-15.5) % Monocytes # (0-1.0) k/uL BUN/Creatinine Ratio 21.43 H (12.00-20.00) Ratio POC Glucose (mg/dL) 68 L 73 L (75-99) mg/dL Calcium 8.3 L (8.7-10.3) mg/dL Alkaline Phosphatase 219 H (41-126) U/L Total Protein 5.4 L (6.2-8.2) g/dL Albumin 3.10 L (3.80-4.90) g/dL Albumin/Globulin Ratio 1.35 L (1.60-3.17) g/dL 02/02/21 02/02/21 Range/Units 11:20 17:05 WBC (3.8-10.6) k/uL RBC (4.30-5.90) m/uL Hgb (13.0-17.5) gm/dL Hct (39.0-53.0) % RDW (11.5-15.5) % Monocytes # (0-1.0) k/uL BUN/Creatinine Ratio (12.00-20.00) Ratio POC Glucose (mg/dL) 73 L 124 H (75-99) mg/dL Calcium (8.7-10.3) mg/dL Alkaline Phosphatase (41-126) U/L Total Protein (6.2-8.2) g/dL Albumin (3.80-4.90) g/dL Albumin/Globulin Ratio (1.60-3.17) g/dL Assessment and Plan Plan: Bilateral lower extremity cellulitis Atrial fibrillation with rapid ventricular response Hyponatremia sodium on presentation 127 Underlying history of insulin-dependent diabetes mellitus Underlying history of hypertension Underlying history of hyperlipidemia Underlying history of coronary artery disease Underlying history of congestive heart failure Poor nutritional status with moderate protein calorie malnutrition started on insure supplements Increased fluid retention. Aldactone and Lasix resumed. Cardiology services have been consulted. Chest x-ray ordered At this time patient is admitted to medical floor, he was started on IV antibiotics, infectious disease following Cardiology is following and adjusting medications at this time dose of metoprolol was increased and digoxin was discontinued Infectious disease consultation and cardiology consultation were requested She maintained on IV Unasyn
--- NOTE | 2021-02-02 17:31 | P.PN ---
Subjective Progress Note Date: 02/02/21 Principal diagnosis: Acute on chronic hypoxic respiratory failure related to multiple etiologies including chronic congestive heart failure, COPD Bilateral lower extremity cellulitis Acute on chronic diastolic heart failure Chronic paroxysmal atrial fibrillation with RVR Electrolyte imbalance related to hyponatremia Hypertension hypertensive cardiovascular disease Dyslipidemia coronary artery disease 02/02/2021, patient seen eval reexamined during the rounds labs reviewed medications reviewed, oxygen gradually being titrated down now on 7 L high flow oxygen saturation is 95% patient has been getting BiPAP machine at nighttime, repeat chest x-ray reviewed bilateral infiltrates seen likely associated with interstitial lung disease with component of fluid overload 02/01/2021, patient seen eval reexamined during the rounds currently patient is on high flow nasal cannula 30 L/m, patient has a sudden onset of respiratory distress and had a rapid response initially was placed on the BiPAP and given Lasix with that slight improvement is present, able to come off of BiPAP now saturation is 96-98% on 13 L, his urine is positive for Klebsiella pneumonia, patient has been on broad-spectrum antibiotics, chest x-ray performed at rapid response continue show patchy bilateral infiltrate due to chronic pulmonary fibrosis with some component of fluid overload, patient has received Lasix, would recommend to continue Lasix, continue BiPAP machine at nighttime and supp lemental oxygen during day with slow taper 01/29/2021, overall remains stable, using oxygen off and on, hemodynamic status stable, remains afebrile, oxygen saturation 90% on 4 L, urine culture came back positive for Klebsiella 01/27/2021, patient seen eval examined during the rounds labs reviewed medications reviewed care plan discussed, patient remains on 2 L oxygen oxygen saturation remained stable shortness of breath stable denies any cough or sputum production, currently on broad-spectrum antibiotics for cellulitis of the legs, edema appears to be improving Patient is a 75-year-old male well-known to me patient admitted into the hospital with swelling and cellulitis of the lower extremity, patient has a long-standing history of congestive heart failure, developed cellulitis which martinez s been marked patient remains on broad-spectrum antibiotics, patient has multiple ALLERGIES and COPD as well, also has issues associated with the BPH, GERD, COPD, congestive heart failure, history of multiple CVAs and TIAs, memory impairment, recent pneumonia as well as sleep disorder breathing and sleep apnea, patient finished therapy of the aspiration pneumonia, her sputum cleared him is positive for MSSA patient was discharged on oral Augmentin, patient last few days have progressive swelling of the lower extremity up to mid thigh level, the chest x-ray performed at the time admission revealed interstitial edema Objective - Vital Signs Vital signs: Vital Signs Temp 98.3 F 02/02/21 14:00 Pulse 100 02/02/21 15:31 Resp 18 02/02/21 14:00 BP 128/76 02/02/21 14:00 Pulse Ox 95 02/02/21 14:00 Intake & Output 02/01/21 02/02/21 02/02/21 18:59 06:59 18:59 Output Total 1700 1000 Balance -1700 -1000 Weight 113 kg 113 kg Output: Urine 1700 1000 Other: Voiding Method Indwelling Catheter Indwelling Catheter Indwelling Catheter # Bowel Movements 1 - Exam - Constitutional General appearance: disheveled, mild distress, morbidly obese - EENT Eyes: EOMI, PERRLA Ears: bilateral: normal - Neck Neck: normal ROM Carotids: bilateral: upstroke normal Thyroid: bilateral: normal size - Respiratory Respiratory: bilateral: diminished, positive bilateral crackles - Cardiovascular Rhythm: regular Heart sounds: normal: S1, S2 - Gastrointestinal General gastrointestinal: normal bowel sounds, soft - Neurologic Neurologic: CNII-XII intact - Musculoskeletal Musculoskeletal: gait normal, generalized weakness, strength equal bilaterally - Psychiatric Psychiatric: A&O x's 3, appropriate affect, intact judgment & insight - Labs CBC & Chem 7: 02/02/21 06:42 02/02/21 06:42 Labs: Abnormal Lab Results - Last 24 Hours (Table) 02/01/21 02/02/21 02/02/21 Range/Units 19:43 06:42 06:42 WBC 10.8 H (3.8-10.6) k/uL RBC 3.98 L (4.30-5.90) m/uL Hgb 10.9 L (13.0-17.5) gm/dL Hct 34.7 L (39.0-53.0) % RDW 17.8 H (11.5-15.5) % Monocytes # 1.4 H (0-1.0) k/uL BUN/Creatinine Ratio 21.43 H (12.00-20.00) Ratio POC Glucose (mg/dL) 155 H (75-99) mg/dL Calcium 8.3 L (8.7-10.3) mg/dL Alkaline Phosphatase 219 H (41-126) U/L Total Protein 5.4 L (6.2-8.2) g/dL Albumin 3.10 L (3.80-4.90) g/dL Albumin/Globulin Ratio 1.35 L (1.60-3.17) g/dL 02/02/21 02/02/21 02/02/21 Range/Units 07:00 07:22 11:20 WBC (3.8-10.6) k/uL RBC (4.30-5.90) m/uL Hgb (13.0-17.5) gm/dL Hct (39.0-53.0) % RDW (11.5-15.5) % Monocytes # (0-1.0) k/uL BUN/Creatinine Ratio (12.00-20.00) Ratio POC Glucose (mg/dL) 68 L 73 L 73 L (75-99) mg/dL Calcium (8.7-10.3) mg/dL Alkaline Phosphatase (41-126) U/L Total Protein (6.2-8.2) g/dL Albumin (3.80-4.90) g/dL Albumin/Globulin Ratio (1.60-3.17) g/dL 02/02/21 Range/Units 17:05 WBC (3.8-10.6) k/uL RBC (4.30-5.90) m/uL Hgb (13.0-17.5) gm/dL Hct (39.0-53.0) % RDW (11.5-15.5) % Monocytes # (0-1.0) k/uL BUN/Creatinine Ratio (12.00-20.00) Ratio POC Glucose (mg/dL) 124 H (75-99) mg/dL Calcium (8.7-10.3) mg/dL Alkaline Phosphatase (41-126) U/L Total Protein (6.2-8.2) g/dL Albumin (3.80-4.90) g/dL Albumin/Globulin Ratio (1.60-3.17) g/dL Assessment and Plan Assessment: Suspect evidence of fluid overload with pulmonary fibrosis agree with diuresis BiPAP and supplemental oxygen Klebsiella urinary tract infection Acute on chronic hypoxic respiratory failure related to multiple etiologies including chronic congestive heart failure, COPD Bilateral lower extremity cellulitis Acute on chronic diastolic heart failure Chronic paroxysmal atrial fibrillation with RVR Electrolyte imbalance related to hyponatremia Hypertension hypertensive cardiovascular disease Dyslipidemia coronary artery disease Plan: Overall plan is to continue gently diureses, along with IV antibiotics, continue supplemental oxygen, titrate as tolerated BiPAP at nighttime and when necessary during the day continue deep breathing sense incentive spirometry, further plan of care as per clinical response to therapy Time with Patient: Greater than 30
--- NOTE | 2021-02-02 20:01 | PN ---
PROGRESS NOTE DATE OF SERVICE: 02/02/2021 REASON FOR FOLLOWUP: Bilateral lower extremity cellulitis and positive urine culture. INTERVAL HISTORY: Patient is patient complaining of difficulty breathing, not getting enough air. The patient denies having chest pain. He did have a cough, not bringing up any sputum. No abdominal pain or any worsening pain to the lower extremity. PHYSICAL EXAMINATION: Blood pressure 128/76, pulse of 90, temperature 98.6, he is 95% on 7 L nasal cannula. General examination is an elderly male lying in bed in no distress. Respiratory system: Unlabored breathing, decreased intensity of breath sounds. No wheeze. Heart S1, S2. Regular rate and rhythm. Abdomen: Soft. No tenderness. Bilateral leg swelling persists and redness improved. LABS: Hemoglobin is 10.1, white count 10.8. BUN of 13 and creatinine 0.7. Chest x-ray with diffuse infiltrate suggestive of infiltrate. DIAGNOSTIC IMPRESSION AND PLAN: 1. Patient with bilateral lower extremity cellulitis with diffuse swelling and redness likely streptococcal disease for which the patient has been on Unasyn, shown overall improvement to continue along with Michael wrap to keep the swelling down. 2. Shortness of breath, more likely fluid overload and not behaving as pneumonia. We will obtain his CRP and procalcitonin and monitor clinical course closely. MMODL / IJN: [id number] /
[2021-02-02 20:31] LABS: Glucose,Whole Blood 197 mg/dL (75-99)
[2021-02-02] MEDS: FINASTERIDE 5 MG TAB PO SCH (22:09)
[2021-02-02] MEDS: INSULIN DETEMIR (LEVEMIR) 100 UNIT/ML SYR SQ SCH (22:10)
[2021-02-03] MEDS: LAMIVUDINE 150 MG PO SCH (04:12)
[2021-02-03] MEDS: AMPICILLIN-SULBACTAM 3 GM in SODIUM CHLORIDE 0.9% 100 ML IVPB SCH ×3 (04:31→14:45)
[2021-02-03] MEDS: PYRIDOSTIGMINE 60 MG TAB PO SCH ×5 (04:36→14:46)
[2021-02-03 07:02] LABS: African American GFR (CKD) >90 (>60 ml/min/1.73 sqM); Anion Gap 3 mmol/L; Blood Urea Nitrogen 18 mg/dL (9-20); Calcium 8.5 mg/dL (8.4-10.2); Carbon Dioxide 29 mmol/L (22-30); Chloride 100 mmol/L (98-107); Glucose 54 mg/dL (74-99); Non-African American GFR(CKD) >90 (>60 ml/min/1.73 sqM); Potassium 3.9 mmol/L (3.5-5.1); Sodium 132 mmol/L (137-145)
[2021-02-03 07:25] LABS: Glucose,Whole Blood 61 mg/dL (75-99)
[2021-02-03] MEDS: SPIRONOLACTONE 25 MG TAB PO SCH (07:34)
[2021-02-03] MEDS: PANTOPRAZOLE 40 MG TABLET PO SCH (07:34)
[2021-02-03] MEDS: CYANOCOBALAMIN 500 MCG TAB PO SCH (07:34)
[2021-02-03] MEDS: ASPIRIN 81 MG PO SCH (07:34)
[2021-02-03] MEDS: CHOLECALCIFEROL 25 MCG (1000 IU) TABLET PO SCH (07:34)
[2021-02-03] MEDS: FUROSEMIDE 10 MG/ML 4 ML VIAL IV SCH (07:35)
[2021-02-03] MEDS: METOPROLOL TARTRATE 25 MG TAB PO SCH ×2 (07:35→20:39)
[2021-02-03] MEDS: MULTIVITAMINS, THERA 1 EACH TAB PO SCH (07:35)
[2021-02-03] MEDS: MIDODRINE 5 MG TAB PO SCH ×3 (07:35→17:27)
[2021-02-03] MEDS: DILTIAZEM ORAL 30 MG TAB PO SCH ×2 (07:35→14:45)
[2021-02-03] MEDS: VITAMIN E (DL,TOCOPHERYL ACET) 400 UNIT (180 MG) CAP PO SCH (07:36)
[2021-02-03] MEDS: FLUTICASONE 50MCG/SPRAY NASAL 16GM EA NOSTRIL SCH (07:36)
[2021-02-03 07:41] LABS: Glucose,Whole Blood 91 mg/dL (75-99)
[2021-02-03] MEDS: lamoTRIgine 100 MG TAB PO SCH (07:46)
[2021-02-03] MEDS: MAGNESIUM OXIDE 400 MG TAB PO SCH (07:47)
[2021-02-03] MEDS: INSULIN ASPART (NovoLOG) 100 UNIT/ML VIAL SQ SCH ×3 (08:02→17:24)
--- NOTE | 2021-02-03 08:13 | P.PN ---
Subjective Progress Note Date: 02/03/21 HISTORY OF PRESENT ILLNESS: This is a 75-year-old male with a past medical history significant for congestive heart failure, diabetes mellitus, pulmonary fibrosis, COPD with home oxygen use, and paroxysmal atrial fibrillation. Patient follows with primary care physician out of the [place] but does not follow with a cooker mechanic regularly. We have been asked to see the patient in consultation for atrial fibrillation. Patient examined at the bedside. Patient was recently hospitalized secondary to bilateral pneumonia. Patient was found to have atrial fibrillation at that time. He was initially started on anticoagulation however this was discontinued as patient was deemed high risk for anticoagulation. Patient was discharged to [facility]. He presented back to the hospital with increased lower extremity edema. He was found to have bilateral lower extremity cellulitis and was started on antibiotics. EKG reveals atrial flutter with 2-1 conduction. Telemetry currently reveals atrial fibrillation with controlled ventricular rate Chest xray pulmonary infiltrates are mostly interstitial and appears slightly worse than last exam. There is evidence for significant interstitial process. Acute pneumonia is possible in the left side. Laboratory data: WBC 4.4. Hemoglobin 10.0. Platelet count 93. Sodium 127. Potassium 5.1. BUN 18. Creatinine 0.59. Current home cardiac medications include spironolactone 75 mg daily, Midodrine 10mg TID, metoprolol tartrate 25 mg 3 times a day, Lasix 60 mg daily, Cardizem 60 mg 3 times a day, digoxin 62.5mcg daily, and aspirin 81mg daily Patient underwent Lexiscan stress test in 2018 which was abnormal. He subsequently underwent cardiac catheterization in [address] Herman revealing normal coronary arteries Echocardiogram completed on 12/28/2020 revealed ejection fraction 50-55%, moderate aortic stenosis, mild mitral regurgitation, and mild tricuspid regurgitation 02/01/2021 Cardiology was reconsulted for CHF. Patient examined at the bedside with Dr. Handley. Patient went into respiratory distress overnight requiring Bipap and IV lasix. Patient is currently on a nasal cannula. He reports his shortness of breath has improved but not resolved. He reports increased lower extremity edema. CXR reveals extensive pulmonary infiltrates. 02/02/2021 Patient examined at the bedside. Patient is currently wearing a Bipap. He reports shortness of breath. He also reports palpitations. Telemetry reveals afib with HR 90-120. Patient has mild improvement in his lower extremity edema. Chest xray from today reveals bilateral diffuse infiltrates correlate for diffuse pneumonia or ARDs. 02/03/2021 Patient examined this morning. Patient is sitting on the side of the bed eating breakfast. Patient wear his BiPAP all night. He is currently on a nasal cannula. Patient states his shortness of breath and his lower extremity edema are improving. He remains on IV Lasix every 12 hours. Fluid balance in the last 24 hours is + 89 mL. BUN 18. Creatinine 0.67. Patient remains in atrial fibrillation. His heart rate is currently uncontrolled. However nursing states his 6:00 dose of Cardizem was not given until recently. PHYSICAL EXAM: VITAL SIGNS: Reviewed. GENERAL: Well-developed in no acute distress. HEENT: Head is normocephalic. Pupils are equal, round. Sclerae anicteric. Mucous membranes of the mouth are moist. Neck supple. No JVD or thyromegaly LUNGS: Respirations even and unlabored. Lungs with bibasilar rales noted. HEART: Irregular rate and rhythm. S1 and S2 heard. Systolic murmur noted. ABDOMEN: Soft. Nondistended. Nontender. EXTREMITIES: Normal range of motion. No clubbing or cyanosis. Peripheral pulses intact. Bilateral lower extremity edema present, improving. ASSESSMENT: Bilateral infilitrates suggestive of bilateral pneumonia, per CXR 02/02/2021 Lower extremity cellulitis Paroxysmal atrial fibrillation with RVR, not on long-term anticoagulation due to history of bleeding Recent hospitalization for bilateral pneumonia and sepsis Pulmonary fibrosis with home oxygen use Acute exacerbation of chronic diastolic congestive heart failure Hypertension Hyponatremia Valvular heart disease PLAN: Continue current cardiac medications Patient was just recently given his 6 AM dose of Cardizem. We'll continue to monitor telemetry and if patient's heart rate remains uncontrolled will adjust medications accordingly. Continue IV lasix 40mg Q12 hours Monitor kidney function Daily weights Accurate I&O Further recommendations pending patient course Nurse practitioner note has been reviewed by physician. Signing provider agrees with the documented findings, assessment, and plan of care. Objective - Vital Signs Vital signs: Vital Signs Temp 98.6 F 02/03/21 07:58 Pulse 133 H 02/03/21 07:58 Resp 18 02/03/21 07:58 BP 115/60 02/03/21 07:58 Pulse Ox 91 L 02/03/21 07:58 Intake & Output 02/02/21 02/03/21 02/03/21 18:59 06:59 18:59 Intake Total 400 340 Output Total 651 Balance 400 -311 Weight 113 kg Intake: Intake, IV Titration 400 100 Amount Ampicillin-Sulbactam 3 gm 400 100 In Sodium Chloride 0.9% 100 ml @ 200 mls/hr IVPB Q6H [facility] Rx#:[id number] Oral 240 Output: Urine 650 Stool 1 Other: Voiding Method Indwelling Catheter Indwelling Catheter # Bowel Movements 1 1 - Labs CBC & Chem 7: 02/02/21 06:42 02/03/21 06:40 Labs: Abnormal Lab Results - Last 24 Hours (Table) 02/02/21 02/02/21 02/02/21 Range/Units 06:42 11:20 17:05 Sodium (137-145) mmol/L BUN/Creatinine Ratio 21.43 H (12.00-20.00) Ratio Glucose (74-99) mg/dL POC Glucose (mg/dL) 73 L 124 H (75-99) mg/dL Calcium 8.3 L (8.7-10.3) mg/dL Alkaline Phosphatase 219 H (41-126) U/L Total Protein 5.4 L (6.2-8.2) g/dL Albumin 3.10 L (3.80-4.90) g/dL Albumin/Globulin Ratio 1.35 L (1.60-3.17) g/dL 02/02/21 02/03/21 02/03/21 Range/Units 20:28 06:40 07:23 Sodium 132 L (137-145) mmol/L BUN/Creatinine Ratio (12.00-20.00) Ratio Glucose 54 L (74-99) mg/dL POC Glucose (mg/dL) 197 H 61 L (75-99) mg/dL Calcium (8.7-10.3) mg/dL Alkaline Phosphatase (41-126) U/L Total Protein (6.2-8.2) g/dL Albumin (3.80-4.90) g/dL Albumin/Globulin Ratio (1.60-3.17) g/dL Microbiology - Last 24 Hours (Table) 01/30/21 23:35 Urine Culture - Final Urine,Voided Lisbeth sp,not albicans/galbr
[2021-02-03] MEDS: IPRATROPIUM-ALBUTEROL 3 ML NEB INHALATION SCH ×4 (08:44→18:57)
[2021-02-03] MEDS ORDERED: METOPROLOL TARTRATE 25 MG TAB PO STA (09:34)
--- NOTE | 2021-02-03 09:53 | P.PN ---
Subjective Progress Note Date: 02/03/21 Duke Sánchez, is a 75 year old male who presented to [facility] emergency room with a chief complaint of bilateral lower extremity swelling erythema and tenderness He was evaluated in the emergency room vital examination on presentation revealed a temperature of 98.2 pulse 133 respiration 18 blood pressure 117/62 pulse ox 96% on 4 L nasal cannula Laboratory data reveals sodium was low at 127 BUN 18 creatinine 0.59 alkaline phosphatase 213 white blood count count 4.4 hemoglobin 10.0 platelet count low at 93 Testing in the emergency room revealed chest x-ray revealed interstitial pul monary infiltrate suggestive of interstitial fibrosis, with possible left lower lobe pneumonia, EKG revealed atrial flutter with 21 conduction with a heart rate of 129 Patient was admitted to medical floor for further evaluation and treatment Past medical history is significant for Congestive Heart Failure, COPD, history of insulin-dependent Diabetes Mellitus, history of stroke, Hyperlipidemia, H ypertension, Liver Disease, Memory Impairment, Pneumonia, Prostate Disorder, Seizure Disorder, obstructive sleep apnea maintained on CPAP, history of benign prostatic hypertrophy, gastroesophageal reflux disease, history of chronic hepatitis C, history of esophageal viruses with multiple episodes of bleeding in the past, history of myasthenia gravis and history of depression On 01/26/2021 Patient was seen and examined on the medical floor, he is alert and oriented x 3 in no distress, he denies any complaints there is no fever or chills no headache or dizziness no chest pain no shortness of breath no palpitation no cough no nausea or vomiting no abdominal pain no diarrhea no blood in the stools no burning with urination no frequency or urgency and no hematuria, there is no weakness or numbness in any of the extremities no change in vision speech or gait. Patient is complaining of runny nose and requesting a noses pray will add Flonase nose spray at this time he denies any other compl aints. On 01/27/2021 patient is alert and oriented 3. Patient's lower extremity cellulites does appear to be improving. Patient remains on IV Unasyn. Infectious disease and pulmonary services are following. Wound care service is consulted. PT OT consulted. Social work consulted for discharge planning. at this time patient denies chest pain. Patient denies nausea vomiting or diarrhea. Patient denies any urinary burning or frequency On 01/28/2021 Patient was seen and examined on the medical floor, he is alert and oriented x 3 in no distress, he was complaining of nausea and generalized weakness this morning otherwise he denies any complaints there is no fever or chills no headache or dizziness no chest pain no shortness of breath no palpitation no cough or vomiting no abdominal pain no diarrhea no blood in the stools no burning with urination no frequency or urgency and no hematuria, there is no weakness or numbness in any of the extremities no change in vision speech or gait. On 01/29/2021 patient is alert and oriented 3. Patient remains on IV Unasyn. Infectious disease, pulmonary services and wound care service is following. Discussed case with social sciences research scientist discharge planning to [facility]. At this time patient denies chest pain or shortness breath. Patient denies nausea vomiting or diarrhea. Patient denies any urinary frequency. On 01/30/2021 Patient was seen and examined on the medical floor, he is alert and oriented x 3 in no distress, he denies any complaints there is no fever or chills no headache or dizziness no chest pain no shortness of breath no palpitation no cough no nausea or vomiting no abdominal pain no diarrhea no blood in the stools no burning with urination no frequency or urgency and no hematuria, there is no weakness or numbness in any of the extremities no change in vision speech or gait., Patient had an episode of hypoglycemia this morning with blurred vision, otherwise he denies any complaints at this time On 01/31/2021 patient is alert and oriented 3. Patient complaining of increased fluid retention. Will resume patient's home Lasix and Aldactone that was currently on hold due to hyponatremia. Cardiology services have been consulted. Lung sounds are clear to auscultation. Patient reports he is having some shortness of breath will order chest x-ray. Patient denies chest pain. Patient denies nausea vomiting or diarrhea. Patient denies any urinary burning or frequency. On 02/01/2021 patient was seen and examined on the medical floor he is somnolent arousable answer questions appropriately when aroused, he had an episode of severe shortness of breath early this morning 18 where called patient received 2 doses of IV Lasix 40 mg he improved significantly dose of Lasix was changed to 40 mg IV every 12 hours, at this time patient is resting comfortably he denies any chest pain or shortness of breath On 02/02/2021 Patient was seen and examined on the medical floor, he is alert and oriented x 3 in no distress, he is complaining of generalized weakness and fatigue otherwise he denies any complaints there is no fever or chills no headache or dizziness no chest pain no shortness of breath no palpitation no cough no nausea or vomiting no abdominal pain no diarrhea no blood in the stools no burning with urination no frequency or urgency and no hematuria, there is no weakness or numbness in any of the extremities no change in vision speech or gait. On 02/03/2021 patient's alert and oriented 3. Patient is complaining of some shortness breath. Patient denies chest pain. Patient denies nausea vomiting or diarrhea. Patient remains on IV Lasix and IV Unasyn. Denies any urinary burning or frequency. Patient's heart rate elevated at 122. Per cardiology medications to be adjusted. Objective - Vital Signs Vital signs: Vital Signs Temp 98.6 F 02/03/21 07:58 Pulse 122 H 02/03/21 08:44 Resp 18 02/03/21 07:58 BP 115/60 02/03/21 07:58 Pulse Ox 91 L 02/03/21 07:58 Intake & Output 02/02/21 02/03/21 02/03/21 18:59 06:59 18:59 Intake Total 400 340 Output Total 651 Balance 400 -311 Weight 113 kg Intake: Intake, IV Titration 400 100 Amount Ampicillin-Sulbactam 3 gm 400 100 In Sodium Chloride 0.9% 100 ml @ 200 mls/hr IVPB Q6H [facility] Rx#:[id number] Oral 240 Output: Urine 650 Stool 1 Other: Voiding Method Indwelling Catheter Indwelling Catheter # Bowel Movements 1 1 - Exam In general patient is alert and oriented x 3 in no distress HEENT head normocephalic and atraumatic Neck is supple no JVD no goiter no lymphadenopathy no carotid bruit Chest examination is clear to auscultation no crackles no wheezing Cardiac exam reveals regular heart sounds S1 and S2 no gallops no murmurs Abdomen is soft nontender no organomegaly with normal bowel sounds Extremity exam reveals mild edema bilaterally with bilateral pretibial erythema Neurological examination reveals no gross focal deficits - Labs CBC & Chem 7: 02/02/21 06:42 02/03/21 06:40 Labs: Abnormal Lab Results - Last 24 Hours (Table) 02/02/21 02/02/21 02/02/21 Range/Units 06:42 11:20 17:05 Sodium (137-145) mmol/L BUN/Creatinine Ratio 21.43 H (12.00-20.00) Ratio Glucose (74-99) mg/dL POC Glucose (mg/dL) 73 L 124 H (75-99) mg/dL Calcium 8.3 L (8.7-10.3) mg/dL Alkaline Phosphatase 219 H (41-126) U/L Total Protein 5.4 L (6.2-8.2) g/dL Albumin 3.10 L (3.80-4.90) g/dL Albumin/Globulin Ratio 1.35 L (1.60-3.17) g/dL 02/02/21 02/03/21 02/03/21 Range/Units 20:28 06:40 07:23 Sodium 132 L (137-145) mmol/L BUN/Creatinine Ratio (12.00-20.00) Ratio Glucose 54 L (74-99) mg/dL POC Glucose (mg/dL) 197 H 61 L (75-99) mg/dL Calcium (8.7-10.3) mg/dL Alkaline Phosphatase (41-126) U/L Total Protein (6.2-8.2) g/dL Albumin (3.80-4.90) g/dL Albumin/Globulin Ratio (1.60-3.17) g/dL Microbiology - Last 24 Hours (Table) 01/30/21 23:35 Urine Culture - Final Urine,Voided Lisbeth sp,not albicans/galbr Assessment and Plan Plan: Bilateral lower extremity cellulitis Atrial fibrillation with rapid ventricular response Hyponatremia sodium on presentation 127 Underlying history of insulin-dependent diabetes mellitus Underlying history of hypertension Underlying history of hyperlipidemia Underlying history of coronary artery disease Underlying history of congestive heart failure Poor nutritional status with moderate protein calorie malnutrition started on insure supplements Increased fluid retention. Aldactone and Lasix resumed. Cardiology services have been consulted. Chest x-ray ordered At this time patient is admitted to medical floor, he was started on IV antibiotics, infectious disease following Cardiology is following and adjusting medications at this time dose of metoprolol was increased and digoxin was discontinued Infectious disease consultation and cardiology consultation were requested maintained on IV Unasyn Patient maintained on IV Lasix
[2021-02-03 12:10] LABS: Glucose,Whole Blood 106 mg/dL (75-99)
--- NOTE | 2021-02-03 16:30 | P.PN ---
Subjective Progress Note Date: 02/03/21 Principal diagnosis: Acute on chronic hypoxic respiratory failure related to multiple etiologies including chronic congestive heart failure, COPD Bilateral lower extremity cellulitis Acute on chronic diastolic heart failure Chronic paroxysmal atrial fibrillation with RVR Electrolyte imbalance related to hyponatremia Hypertension hypertensive cardiovascular disease Dyslipidemia coronary artery disease 02/03/2021, patient seen eval examined during the rounds labs reviewed medications reviewed care plan discussed, Restoril status remains stable denies any chest pain respiratory oxygen saturation is mid 90s on 7 L oxygen, discussed with RN and a prescription provided for BiPAP machine, continue titrated oxygen down to 2-4 L keeping her oxygen over 92%, 02/02/2021, patient seen eval reexamined during the rounds labs reviewed medications reviewed, oxygen gradually being titrated down now on 7 L high flow oxygen saturation is 95% patient has been getting BiPAP machine at nighttime, repeat chest x-ray reviewed bilateral infiltrates seen likely associated with interstitial lung disease with component of fluid overload 02/01/2021, patient seen eval reexamined during the rounds currently patient is on high flow nasal cannula 30 L/m, patient has a sudden onset of respiratory distress and had a rapid response initially was placed on the BiPAP and given Lasix with that slight improvement is present, able to come off of BiPAP now saturation is 96-98% on 13 L, his urine is positive for Klebsiella pneumonia, patient has been on broad-spectrum antibiotics, chest x-ray performed at rapid response continue show patchy bilateral infiltrate due to chronic pulmonary fibrosis with some component of fluid overload, patient has received Lasix, would recommend to continue Lasix, continue BiPAP machine at nighttime and supplemental oxygen during day with slow taper 01/29/2021, overall remains stable, using oxygen off and on, hemodynamic status stable, remains afebrile, oxygen saturation 90% on 4 L, urine culture came back positive for Klebsiella 01/27/2021, patient seen eval examined during the rounds labs reviewed medications reviewed care plan discussed, patient remains on 2 L oxygen oxygen saturation remained stable shortness of breath stable denies any cough or sputum production, currently on broad-spectrum antibiotics for cellulitis of the legs, edema appears to be improving Patient is a 75-year-old male well-known to [place] patient admitted into the hospital with swelling and cellulitis of the lower extremity, patient has a long-standing history of congestive heart failure, developed cellulitis which has been marked patient remains on broad-spectrum antibiotics, patient has multiple ALLERGIES and COPD as well, also has issues associated with the BPH, GERD, COPD, congestive heart failure, history of multiple CVAs and TIAs, memory impairment, recent pneumonia as well as sleep disorder breathing and sleep apnea, patient finished therapy of the aspiration pneumonia, her sputum cleared him is positive for MSSA patient was discharged on oral Augmentin, patient last few days have progressive swelling of the lower extremity up to mid thigh level, the chest x-ray performed at the time admission revealed interstitial edema Objective - Vital Signs Vital signs: Vital Signs Temp 98.7 F 02/03/21 14:00 Pulse 104 H 02/03/21 15:21 Resp 19 02/03/21 14:00 BP 134/75 02/03/21 14:00 Pulse Ox 96 02/03/21 14:00 Intake & Output 02/02/21 02/03/21 02/03/21 18:59 06:59 18:59 Intake Total 400 340 Output Total 651 Balance 400 -311 Weight 113 kg Intake: Intake, IV Titration 400 100 Amount Ampicillin-Sulbactam 3 gm 400 100 In Sodium Chloride 0.9% 100 ml @ 200 mls/hr IVPB Q6H [facility] Rx#:[id number] Oral 240 Output: Urine 650 Stool 1 Other: Voiding Method Indwelling Catheter Indwelling Catheter Indwelling Catheter # Bowel Movements 1 1 - Exam - Constitutional General appearance: disheveled, mild distress, morbidly obese - EENT Eyes: EOMI, PERRLA Ears: bilateral: normal - Neck Neck: normal ROM Carotids: bilateral: upstroke normal Thyroid: bilateral: normal size - Respiratory Respiratory: bilateral: diminished, positive bilateral crackles - Cardiovascular Rhythm: regular Heart sounds: normal: S1, S2 - Gastrointestinal General gastrointestinal: normal bowel sounds, soft - Neurologic Neurologic: CNII-XII intact - Musculoskeletal Musculoskeletal: gait normal, generalized weakness, strength equal bilaterally - Psychiatric Psychiatric: A&O x's 3, appropriate affect, intact judgment & insight - Labs CBC & Chem 7: 02/02/21 06:42 02/03/21 06:40 Labs: Abnormal Lab Results - Last 24 Hours (Table) 02/02/21 02/02/21 02/03/21 Range/Units 17:05 20:28 06:40 Sodium 132 L (137-145) mmol/L Glucose 54 L (74-99) mg/dL POC Glucose (mg/dL) 124 H 197 H (75-99) mg/dL 02/03/21 02/03/21 Range/Units 07:23 12:09 Sodium (137-145) mmol/L Glucose (74-99) mg/dL POC Glucose (mg/dL) 61 L 106 H (75-99) mg/dL Microbiology - Last 24 Hours (Table) 01/30/21 23:35 Urine Culture - Final Urine,Voided Lisbeth sp,not albicans/galbr Assessment and Plan Assessment: Suspect evidence of fluid overload with pulmonary fibrosis agree with diuresis BiPAP and supplemental oxygen Klebsiella urinary tract infection Acute on chronic hypoxic respiratory failure related to multiple etiologies including chronic congestive heart failure, COPD Bilateral lower extremity cellulitis Acute on chronic diastolic heart failure Chronic paroxysmal atrial fibrillation with RVR Electrolyte imbalance related to hyponatremia Hypertension hypertensive cardiovascular disease Dyslipidemia coronary artery disease Plan: Overall plan is to continue gently diureses, along with IV antibiotics, can be changed to by mouth as tolerated continue supplemental oxygen, titrate as tolerated BiPAP at nighttime and when necessary during the day , prescription provided continue deep breathing sense incentive spirometry, further plan of care as per clinical response to therapy Time with Patient: Greater than 30
[2021-02-03 17:12] LABS: Glucose,Whole Blood 92 mg/dL (75-99)
--- NOTE | 2021-02-03 23:22 | PN ---
PROGRESS NOTE DATE OF SERVICE: 02/03/2021 REASON FOR FOLLOWUP: Bilateral lower extremity cellulitis. INTERVAL HISTORY: Patient is afebrile. Still complaining of some shortness of breath, cough, not bringing up any sputum. No vomiting. No abdominal pain or diarrhea. PHYSICAL EXAMINATION: Blood pressure 109/65, pulse of 90, temperature 99. He is 94% on 2 L nasal cannula. General description is an elderly male lying in bed in no distress. Respiratory system: Unlabored breathing, decreased breath sounds in the base, with no wheeze. Heart S1, S2. Regular rate and rhythm. Abdomen soft, no tenderness. LABS: BUN of 15, creatinine 0.67. Repeat urine showing Lisbeth . DIAGNOSTIC IMPRESSION AND PLAN: 1. Patient with bilateral lower extremity cellulitis. Overall improvement with Unasyn to continue. Transition to oral Augmentin on discharge. Continue with compressive dressing. 2. Positive urine culture with Klebsiella pneumoniae, multidrug resistant, more likely colonization for catheters as the repeat urine after change of Hernandez did not show the same pathogen. Continue supportive care. MMODL / IJN: [id number] /
[2021-02-04 00:27] LABS: Glucose,Whole Blood 135 mg/dL (75-99)
[2021-02-04] MEDS: INSULIN ASPART (NovoLOG) 100 UNIT/ML VIAL SQ SCH ×5 (01:10→20:56)
[2021-02-04] MEDS: LAMIVUDINE 150 MG PO SCH ×2 (01:13→20:40)
[2021-02-04] MEDS: AMPICILLIN-SULBACTAM 3 GM in SODIUM CHLORIDE 0.9% 100 ML IVPB SCH ×4 (01:25→14:18)
[2021-02-04] MEDS: DILTIAZEM ORAL 30 MG TAB PO SCH ×6 (01:26→20:56)
[2021-02-04] MEDS: PYRIDOSTIGMINE 60 MG TAB PO SCH ×7 (01:26→20:56)
[2021-02-04] MEDS: lamoTRIgine 100 MG TAB PO SCH ×3 (01:26→20:55)
[2021-02-04] MEDS: INSULIN DETEMIR (LEVEMIR) 100 UNIT/ML SYR SQ SCH ×2 (01:26→21:09)
[2021-02-04] MEDS: FUROSEMIDE 10 MG/ML 4 ML VIAL IV SCH ×3 (01:27→20:55)
[2021-02-04] MEDS: FINASTERIDE 5 MG TAB PO SCH ×2 (02:43→20:55)
[2021-02-04 06:53] LABS: Glucose,Whole Blood 98 mg/dL (75-99)
[2021-02-04] MEDS: IPRATROPIUM-ALBUTEROL 3 ML NEB INHALATION SCH ×4 (07:18→20:08)
[2021-02-04] MEDS: FLUTICASONE 50MCG/SPRAY NASAL 16GM EA NOSTRIL SCH (08:28)
[2021-02-04] MEDS: VITAMIN E (DL,TOCOPHERYL ACET) 400 UNIT (180 MG) CAP PO SCH (08:28)
[2021-02-04] MEDS: SPIRONOLACTONE 25 MG TAB PO SCH (08:29)
[2021-02-04] MEDS: METOPROLOL TARTRATE 25 MG TAB PO SCH ×2 (08:29→20:55)
[2021-02-04] MEDS: CHOLECALCIFEROL 25 MCG (1000 IU) TABLET PO SCH (08:29)
[2021-02-04] MEDS: MAGNESIUM OXIDE 400 MG TAB PO SCH (08:29)
[2021-02-04] MEDS: ASPIRIN 81 MG PO SCH (08:29)
[2021-02-04] MEDS: CYANOCOBALAMIN 500 MCG TAB PO SCH (08:30)
[2021-02-04] MEDS: MIDODRINE 5 MG TAB PO SCH ×3 (08:30→17:03)
[2021-02-04] MEDS: PANTOPRAZOLE 40 MG TABLET PO SCH (08:30)
[2021-02-04] MEDS: MULTIVITAMINS, THERA 1 EACH TAB PO SCH (08:30)
--- NOTE | 2021-02-04 10:55 | P.PN ---
Subjective This is a pleasant 75-year-old male past medical history significant for heart failure, diabetes mellitus, pulmonary fibrosis, COPD on home oxygen and paroxysmal atrial fibrillation. He follows [facility] the [facility]. He is seen and examined sitting up in bed. He is in mild respiratory distress. He states he feels congested and is unable to clear his secretions. He denies chest pain, dizziness or palpitations. Telemetry tracings reviewed, he continues to have uncontrolled afib with rates going up to 130s at times through the night. The nurse gave his meds early this morning and currently he is currently afib in the 60s. Blood pressure 93/58. Currently maintained on aspirin 81 mg daily, diltiazem 90 mg 3 times a day, Lasix 40 mg IV twice a day, metoprolol 50 mg twice a day, midodrine 10 mg 3 times a day and Aldactone 75 mg daily. 24 hour urine output 650 mL's. GENERAL: Mildly to NECK: Supple without JVD or thyromegaly. LUNGS: Scattered coarse rhonchi throughout, basilar rales, no wheezes. HEART: Irregular rate and rhythm with systolic ejection murmur at the base, no rubs or gallops. S1 and S2 heard. Muffled heart sounds. EXTREMITIES: Normal range of motion, 1-2+ bilateral lower extremity pitting edema, positive lower extremity erythema. No clubbing or cyanosis. Peripheral pulses intact. ASSESSMENT Acute on chronic diastolic heart failure Bilateral pneumonia Paroxysmal atrial fibrillation with uncontrolled rates Pulmonary fibrosis Lower extremity cellulitis Hypertension Hyponatremia Aortic stenosis, moderate PLAN Daily labs pending. If renal function is stable we would recommend continuing IV lasix. Repeat chest xray. Importance of documenting accurate intake and output discussed. Follow renal function in the morning. Nurse Practitioner note has been reviewed, I agree with a documented findings and plan of care. Patient was seen and examined. Objective - Vital Signs Vital signs: Vital Signs Temp 98 F 02/04/21 07:56 Pulse 129 H 02/04/21 07:56 Resp 20 02/04/21 07:56 BP 93/58 02/04/21 07:56 Pulse Ox 93 L 02/04/21 07:56 Intake & Output 02/03/21 02/04/21 02/04/21 18:59 06:59 18:59 Intake Total 400 Output Total 801 Balance 400 -801 Weight 114 kg Intake: Intake, IV Titration 400 Amount Ampicillin-Sulbactam 3 gm 400 In Sodium Chloride 0.9% 100 ml @ 200 mls/hr IVPB Q6H [facility] Rx#:[id number] Output: Urine 800 Stool 1 Other: Voiding Method Indwelling Catheter Indwelling Catheter Indwelling Catheter - Labs CBC & Chem 7: 02/02/21 06:42 02/03/21 06:40 Labs: Abnormal Lab Results - Last 24 Hours (Table) 02/03/21 02/04/21 Range/Units 12:09 00:25 POC Glucose (mg/dL) 106 H 135 H (75-99) mg/dL
--- NOTE | 2021-02-04 11:20 | XR ---
EXAMINATION TYPE: XR chest 1V DATE OF EXAM: 02/04/2021 COMPARISON: 02/02/2021 HISTORY: Shortness of breath FINDINGS: There are bilateral pleural effusions with cardiomegaly and bibasilar infiltrate. There is a diffuse interstitial pattern. Heart enlarged and there is atherosclerotic change aorta. Hyperinflation sugge sts COPD. IMPRESSION: 1. Diffuse bilateral infiltrate pneumonia favored over pulmonary edema correlate clinically.
[2021-02-04 11:42] LABS: Glucose,Whole Blood 101 mg/dL (75-99)
[2021-02-04 11:49] LABS: Basophils # (A) 0.12 X 10*3/uL (0.00-0.10); Basophils % (A) 1.3 %; Eosinophils # (A) 0.07 X 10*3/uL (0.04-0.35); Eosinophils % (A) 0.8 %; HCT 33.2 % (39.6-50.0); Lymphocytes % (A) 23.2 %; MCHC 30.1 g/dL (32.0-37.0); MCV 86.5 fL (80.0-97.0); Mean Platelet Volume 9.6 fL (9.5-12.2); Monocytes # (A) 1.34 X 10*3/uL (0.20-1.00); Monocytes % (A) 14.8 %; Neutrophils % (A) 57.4 %; Platelet Count 204 X 10*3/uL (140-440); RBC 3.84 X 10*6/uL (4.40-5.60); RDW 18.6 % (11.5-14.5); WBC 9.06 X 10*3/uL (4.50-10.00)
[2021-02-04] MEDS: ALPRAZolam 0.25 MG TAB PO PRN ×2 (11:58→17:49)
[2021-02-04] MEDS ORDERED: FUROSEMIDE 10 MG/ML 4 ML VIAL IV STA (12:26)
[2021-02-04 12:59] LABS: ALT 14 U/L (4-49); AST 28 U/L (17-59); African American GFR (CKD) >90 (>60 ml/min/1.73 sqM); Albumin 2.5 g/dL (3.5-5.0); Albumin/Globulin Ratio 0.9; Alkaline Phosphatase 207 U/L (38-126); Anion Gap 1 mmol/L; Blood Urea Nitrogen 16 mg/dL (9-20); Calcium 8.5 mg/dL (8.4-10.2); Carbon Dioxide 32 mmol/L (22-30); Chloride 100 mmol/L (98-107); Globulin 2.7 g/dL; Glucose 83 mg/dL (74-99); Non-African American GFR(CKD) 88 (>60 ml/min/1.73 sqM); Potassium 4.1 mmol/L (3.5-5.1); Sodium 133 mmol/L (137-145); Total Bilirubin 0.7 mg/dL (0.2-1.3); Total Protein 5.2 g/dL (6.3-8.2)
[2021-02-04 13:02] LABS: ABG Base Excess 8.6 mmol/L; ABG HCO3 32 mmol/L (21-25); ABG Oxygen Saturation 94.1 % (94-97); ABG PCO2 44 mmHg (35-45); ABG PH 7.48 (7.35-7.45); ABG PO2 68 mmHg (83-108); ABG TCO2 34 mmol/L (19-24); Allen Test Performed? Yes
[2021-02-04] MEDS: LEVOFLOXACIN 750 MG TAB PO SCH (14:58)
[2021-02-04 16:49] LABS: Glucose,Whole Blood 126 mg/dL (75-99)
[2021-02-04] MEDS: PIPERACILLIN-TAZOBACTAM 3.375 GM in SODIUM CHLORIDE 0.9% 100 ML IVPB SCH (17:03)
[2021-02-04] MEDS ORDERED: DICLOFENAC SODIUM GEL 100 GM TUBE TOPICAL PRN (17:09)
--- NOTE | 2021-02-04 18:19 | PN ---
PROGRESS NOTE DATE OF SERVICE: 02/04/2021 REASON FOR FOLLOWUP VISIT: 1. Bilateral lower extremity cellulitis. 2. Question pneumonia. INTERVAL HISTORY: Patient remains to be afebrile. The patient has been complaining of epistaxis and congestion of his nose and blowing of the nose with some bright red blood. The patient complaining of cannot breathe and is complaining of more shortness of breath. Did have a cough. Not bringing up any sputum though. No abdominal pain. No diarrhea or any pain to the lower extremity. PHYSICAL EXAMINATION: Blood pressure 105/56, pulse of 89, temperature 98.4. He is 91% on 2 L high-flow oxygen. General description is an elderly male up in the bed in no distress. Respiratory system: Unlabored breathing, decreased intensity of breath sounds in the base, with no wheeze. Heart S1, S2. Regular rate and rhythm. Abdomen soft, no tenderness. Extremities with 2+ edema of feet. Redness has decreased. LABS: Hemoglobin is 10.2, white count 9.06, BUN of 13, creatinine 0.79. DIAGNOSTIC IMPRESSION AND PLAN: Patient with bilateral extremity cellulitis has overall improved. The patient now has worsening of his respiratory status, which is more likely fluid overload. Clinically doubt the patient has pneumonia. The patient has no fever or any white count and may need more aggressive diuresis. However, to be on the safe side, we will obtain sputum and to check urine for resistant pathogen. Antibiotic adjusted to Levaquin and Zosyn and we will monitor clinical course closely. MMODL / IJN: [id number] /
--- NOTE | 2021-02-04 19:23 | P.PN ---
Subjective Progress Note Date: 02/04/21 Duke Sánchez, is a 75 year old male who presented to [facility] emergency room with a chief complaint of bilateral lower extremity swelling erythema and tenderness He was evaluated in the emergency room vital examination on presentation revealed a temperature of 98.2 pulse 133 respiration 18 blood pressure 117/62 pulse ox 96% on 4 L nasal cannula Laboratory data reveals sodium was low at 127 BUN 18 creatinine 0.59 alkaline phosphatase 213 white blood count count 4.4 hemoglobin 10.0 platelet count low at 93 Testing in the emergency room revealed chest x-ray revealed interstitial pul monary infiltrate suggestive of interstitial fibrosis, with possible left lower lobe pneumonia, EKG revealed atrial flutter with 21 conduction with a heart rate of 129 Patient was admitted to medical floor for further evaluation and treatment Past medical history is significant for Congestive Heart Failure, COPD, history of insulin-dependent Diabetes Mellitus, history of stroke, Hyperlipidemia, H ypertension, Liver Disease, Memory Impairment, Pneumonia, Prostate Disorder, Seizure Disorder, obstructive sleep apnea maintained on CPAP, history of benign prostatic hypertrophy, gastroesophageal reflux disease, history of chronic hepatitis C, history of esophageal viruses with multiple episodes of bleeding in the past, history of myasthenia gravis and history of depression On 01/26/2021 Patient was seen and examined on the medical floor, he is alert and oriented x 3 in no distress, he denies any complaints there is no fever or chills no headache or dizziness no chest pain no shortness of breath no palpitation no cough no nausea or vomiting no abdominal pain no diarrhea no blood in the stools no burning with urination no frequency or urgency and no hematuria, there is no weakness or numbness in any of the extremities no change in vision speech or gait. Patient is complaining of runny nose and requesting a noses pray will add Flonase nose spray at this time he denies any other compl aints. On 01/27/2021 patient is alert and oriented 3. Patient's lower extremity cellulites does appear to be improving. Patient remains on IV Unasyn. Infectious disease and pulmonary services are following. Wound care service is consulted. PT OT consulted. Social work consulted for discharge planning. at this time patient denies chest pain. Patient denies nausea vomiting or diarrhea. Patient denies any urinary burning or frequency On 01/28/2021 Patient was seen and examined on the medical floor, he is alert and oriented x 3 in no distress, he was complaining of nausea and generalized weakness this morning otherwise he denies any complaints there is no fever or chills no headache or dizziness no chest pain no shortness of breath no palpitation no cough or vomiting no abdominal pain no diarrhea no blood in the stools no burning with urination no frequency or urgency and no hematuria, there is no weakness or numbness in any of the extremities no change in vision speech or gait. On 01/29/2021 patient is alert and oriented 3. Patient remains on IV Unasyn. Infectious disease, pulmonary services and wound care service is following. Discussed case with social worker palliative care discharge planning to [facility]. At this time patient denies chest pain or shortness breath. Patient denies nausea vomiting or diarrhea. Patient denies any urinary frequency. On 01/30/2021 Patient was seen and examined on the medical floor, he is alert and oriented x 3 in no distress, he denies any complaints there is no fever or chills no headache or dizziness no chest pain no shortness of breath no palpitation no cough no nausea or vomiting no abdominal pain no diarrhea no blood in the stools no burning with urination no frequency or urgency and no hematuria, there is no weakness or numbness in any of the extremities no change in vision speech or gait., Patient had an episode of hypoglycemia this morning with blurred vision, otherwise he denies any complaints at this time On 01/31/2021 patient is alert and oriented 3. Patient complaining of increased fluid retention. Will resume patient's home Lasix and Aldactone that was currently on hold due to hyponatremia. Cardiology services have been consulted. Lung sounds are clear to auscultation. Patient reports he is having some shortness of breath will order chest x-ray. Patient denies chest pain. Patient denies nausea vomiting or diarrhea. Patient denies any urinary burning or frequency. On 02/01/2021 patient was seen and examined on the medical floor he is somnolent arousable answer questions appropriately when aroused, he had an episode of severe shortness of breath early this morning 18 where called patient received 2 doses of IV Lasix 40 mg he improved significantly dose of Lasix was changed to 40 mg IV every 12 hours, at this time patient is resting comfortably he denies any chest pain or shortness of breath On 02/02/2021 Patient was seen and examined on the medical floor, he is alert and oriented x 3 in no distress, he is complaining of generalized weakness and fatigue otherwise he denies any complaints there is no fever or chills no headache or dizziness no chest pain no shortness of breath no palpitation no cough no nausea or vomiting no abdominal pain no diarrhea no blood in the stools no burning with urination no frequency or urgency and no hematuria, there is no weakness or numbness in any of the extremities no change in vision speech or gait. On 02/03/2021 patient's alert and oriented 3. Patient is complaining of some shortness breath. Patient denies chest pain. Patient denies nausea vomiting or diarrhea. Patient remains on IV Lasix and IV Unasyn. Denies any urinary burning or frequency. Patient's heart rate elevated at 122. Per cardiology medications to be adjusted. On 02/04/2021 patient was seen and examined on the medical floor he is alert and oriented 1 and he is complaining of worsening shortness of breath, repeat chest x-ray was done today and revealed bilateral lung infiltrates suggestive of pneumonia versus pulmonary edema and extra dose of IV Lasix 40 mg was given patient was placed on BiPAP arterial blood gases were ordered, cardiology pulmonary and infectious disease consultants were contacted to reevaluate patient. Dr. Ron infectious disease added Levaquin 750 mg by mouth daily. Patient has poor oral intake and his albumin has dropped to 2.5 will give 1 dose of IV albumin prior to the next IV Lasix dose will follow closely Objective - Vital Signs Vital signs: Vital Signs Temp 98.3 F 02/04/21 11:11 Pulse 70 02/04/21 11:25 Resp 28 H 02/04/21 11:42 BP 107/51 02/04/21 11:11 Pulse Ox 90 L 02/04/21 11:11 Intake & Output 02/03/21 02/04/21 02/04/21 18:59 06:59 18:59 Intake Total 400 Output Total 801 Balance 400 -801 Weight 114 kg Intake: Intake, IV Titration 400 Amount Ampicillin-Sulbactam 3 gm 400 In Sodium Chloride 0.9% 100 ml @ 200 mls/hr IVPB Q6H [facility] Rx#:[id number] Output: Urine 800 Stool 1 Other: Voiding Method Indwelling Catheter Indwelling Catheter Indwelling Catheter - Exam In general patient is alert and oriented x 3 in no distress HEENT head normocephalic and atraumatic Neck is supple no JVD no goiter no lymphadenopathy no carotid bruit Chest examination is clear to auscultation no crackles no wheezing Cardiac exam reveals regular heart sounds S1 and S2 no gallops no murmurs Abdomen is soft nontender no organomegaly with normal bowel sounds Extremity exam reveals mild edema bilaterally with bilateral pretibial erythema Neurological examination reveals no gross focal deficits - Labs CBC & Chem 7: 02/04/21 06:45 02/04/21 06:45 Labs: Abnormal Lab Results - Last 24 Hours (Table) 02/04/21 02/04/21 02/04/21 Range/Units 00:25 06:45 11:40 RBC 3.84 L (4.40-5.60) X 10*6/uL Hgb 10.0 L (13.0-17.0) g/dL Hct 33.2 L (39.6-50.0) % MCH 26.0 L (27.0-32.0) pg MCHC 30.1 L (32.0-37.0) g/dL RDW 18.6 H (11.5-14.5) % Immature Gran # 0.23 H (0.00-0.04) X 10*3/uL Monocytes # 1.34 H (0.20-1.00) X 10*3/uL Basophils # 0.12 H (0.00-0.10) X 10*3/uL POC Glucose (mg/dL) 135 H 101 H (75-99) mg/dL Assessment and Plan Plan: Bilateral lower extremity cellulitis Atrial fibrillation with rapid ventricular response Hyponatremia sodium on presentation 127 Underlying history of insulin-dependent diabetes mellitus Underlying history of hypertension Underlying history of hyperlipidemia Underlying history of coronary artery disease Underlying history of congestive heart failure Poor nutritional status with moderate protein calorie malnutrition started on insure supplements Increased fluid retention. Aldactone and Lasix resumed. Cardiology services have been consulted. Chest x-ray ordered At this time patient is admitted to medical floor, he was started on IV antibiotics, infectious disease following Cardiology is following and adjusting medications at this time dose of metoprolol was increased and digoxin was discontinued Infectious disease consultation and cardiology consultation were requested maintained on IV Unasyn Patient maintained on IV Lasix
[2021-02-04 20:20] LABS: Glucose,Whole Blood 159 mg/dL (75-99)
[2021-02-04] MEDS: ALBUMIN HUMAN 25% 50 ML in EMPTY BAG 1 BAG IVPB SCH ×2 (20:58→23:35)
[2021-02-05] MEDS: PYRIDOSTIGMINE 60 MG TAB PO SCH ×7 (01:34→22:52)
[2021-02-05] MEDS: PIPERACILLIN-TAZOBACTAM 3.375 GM in SODIUM CHLORIDE 0.9% 100 ML IVPB SCH ×4 (01:37→22:52)
[2021-02-05] MEDS: DILTIAZEM ORAL 30 MG TAB PO SCH ×3 (06:00→22:52)
[2021-02-05] MEDS: IPRATROPIUM-ALBUTEROL 3 ML NEB INHALATION SCH ×4 (07:11→19:29)
[2021-02-05 07:37] LABS: Glucose,Whole Blood 62 mg/dL (75-99)
[2021-02-05 08:01] LABS: Glucose,Whole Blood 78 mg/dL (75-99)
[2021-02-05 08:03] LABS: African American GFR (CKD) >90 (>60 ml/min/1.73 sqM); Anion Gap 3 mmol/L; Blood Urea Nitrogen 18 mg/dL (9-20); Calcium 8.5 mg/dL (8.4-10.2); Carbon Dioxide 30 mmol/L (22-30); Chloride 99 mmol/L (98-107); Glucose 50 mg/dL (74-99); Non-African American GFR(CKD) 90 (>60 ml/min/1.73 sqM); Sodium 132 mmol/L (137-145)
[2021-02-05] MEDS: INSULIN ASPART (NovoLOG) 100 UNIT/ML VIAL SQ SCH ×4 (08:19→21:27)
[2021-02-05] MEDS: LEVOFLOXACIN 750 MG TAB PO SCH (08:35)
[2021-02-05] MEDS: PANTOPRAZOLE 40 MG TABLET PO SCH (08:35)
[2021-02-05] MEDS: MAGNESIUM OXIDE 400 MG TAB PO SCH (08:35)
[2021-02-05] MEDS: ASPIRIN 81 MG PO SCH (08:35)
[2021-02-05] MEDS: VITAMIN E (DL,TOCOPHERYL ACET) 400 UNIT (180 MG) CAP PO SCH (08:35)
[2021-02-05] MEDS: SPIRONOLACTONE 25 MG TAB PO SCH (08:35)
[2021-02-05] MEDS: MIDODRINE 5 MG TAB PO SCH ×3 (08:35→16:22)
[2021-02-05] MEDS: MULTIVITAMINS, THERA 1 EACH TAB PO SCH (08:35)
[2021-02-05] MEDS: CYANOCOBALAMIN 500 MCG TAB PO SCH (08:36)
[2021-02-05] MEDS: lamoTRIgine 100 MG TAB PO SCH ×2 (08:36→21:40)
[2021-02-05] MEDS: CHOLECALCIFEROL 25 MCG (1000 IU) TABLET PO SCH (08:36)
[2021-02-05] MEDS: METOPROLOL TARTRATE 25 MG TAB PO SCH (08:36)
[2021-02-05] MEDS: FUROSEMIDE 10 MG/ML 4 ML VIAL IV SCH ×3 (08:37→22:52)
[2021-02-05] MEDS: FLUTICASONE 50MCG/SPRAY NASAL 16GM EA NOSTRIL SCH (08:37)
--- NOTE | 2021-02-05 09:33 | P.PN ---
Subjective Progress Note Date: 02/05/21 HISTORY OF PRESENT ILLNESS: This is a 75-year-old male with a past medical history significant for congestive heart failure, diabetes mellitus, pulmonary fibrosis, COPD with home oxygen use, and paroxysmal atrial fibrillation. Patient follows with primary care physician out of the [place] but does not follow with a nurse sane regularly. We have been asked to see the patient in consultation for atrial fibrillation. Patient examined at the bedside. Patient was recently hospitalized secondary to bilateral pneumonia. Patient was found to have atrial fibrillation at that time. He was initially started on anticoagulation however this was discontinued as patient was deemed high risk for anticoagulation. Patient was discharged to [facility]. He presented back to the hospital with increased lower extremity edema. He was found to have bilateral lower extremity cellulitis and was started on antibiotics. EKG reveals atrial flutter with 2-1 conduction. Telemetry currently reveals atrial fibrillation with controlled ventricular rate Chest xray pulmonary infiltrates are mostly interstitial and appears slightly worse than last exam. There is evidence for significant interstitial process. Acute pneumonia is possible in the left side. Laboratory data: WBC 4.4. Hemoglobin 10.0. Platelet count 93. Sodium 127. Potassium 5.1. BUN 18. Creatinine 0.59. Current home cardiac medications include spironolactone 75 mg daily, Midodrine 10mg TID, metoprolol tartrate 25 mg 3 times a day, Lasix 60 mg daily, Cardizem 60 mg 3 times a day, digoxin 62.5mcg daily, and aspirin 81mg daily Patient underwent Lexiscan stress test in 2018 which was abnormal. He subsequently underwent cardiac catheterization in [address] Herman revealing normal coronary arteries Echocardiogram completed on 12/28/2020 revealed ejection fraction 50-55%, moderate aortic stenosis, mild mitral regurgitation, and mild tricuspid regurgitation 02/01/2021 Cardiology was reconsulted for CHF. Patient examined at the bedside with Dr. Handley. Patient went into respiratory distress overnight requiring Bipap and IV lasix. Patient is currently on a nasal cannula. He reports his shortness of breath has improved but not resolved. He reports increased lower extremity edema. CXR reveals extensive pulmonary infiltrates. 02/02/2021 Patient examined at the bedside. Patient is currently wearing a Bipap. He reports shortness of breath. He also reports palpitations. Telemetry reveals afib with HR 90-120. Patient has mild improvement in his lower extremity edema. Chest xray from today reveals bilateral diffuse infiltrates correlate for diffuse pneumonia or ARDs. 02/03/2021 Patient examined this morning. Patient is sitting on the side of the bed eating breakfast. Patient wear his BiPAP all night. He is currently on a nasal cannula. Patient states his shortness of breath and his lower extremity edema are improving. He remains on IV Lasix every 12 hours. Fluid balance in the last 24 hours is + 89 mL. BUN 18. Creatinine 0.67. Patient remains in atrial fibrillation. His heart rate is currently uncontrolled. However nursing states his 6:00 dose of Cardizem was not given until recently. 02/04/2021 Patient examined this morning at the bedside. He denies chest pain or pressure. He reports mild shortness of breath. O2 sats are around 88% on nasal cannula. He does have a bipap at the bedside which he as previously wearing. However, it has been removed so the patient could eat breakfast. Heart rate is in the 120s. Nursing reports improvement in heart rates after his morning medications are administered. He remains on IV lasix q12 hours. Kidney function is stable. PHYSICAL EXAM: VITAL SIGNS: Reviewed. GENERAL: Well-developed in no acute distress. HEENT: Head is normocephalic. Pupils are equal, round. Sclerae anicteric. Mucous membranes of the mouth are moist. Neck supple. No JVD or thyromegaly LUNGS: Respirations even and unlabored. Lungs with bibasilar rales noted. HEART: Irregular rate and rhythm. S1 and S2 heard. Systolic murmur noted. ABDOMEN: Soft. Nondistended. Nontender. EXTREMITIES: Normal range of motion. No clubbing or cyanosis. Peripheral pulses intact. Bilateral lower extremity edema present, now with TIMOTHY wraps ASSESSMENT: Bilateral infilitrates suggestive of bilateral pneumonia, per CXR 02/02/2021 Lower extremity cellulitis Paroxysmal atrial fibrillation with RVR, not on long-term anticoagulation due to history of bleeding Recent hospitalization for bilateral pneumonia and sepsis Pulmonary fibrosis with home oxygen use Acute exacerbation of chronic diastolic congestive heart failure Hypertension Hyponatremia Valvular heart disease PLAN: Continue current cardiac medications Increase metoprolol to TID dosing Increase lasix to q 8 hours Monitor kidney function Daily weights Accurate I&O Further recommendations pending patient course Nurse practitioner note has been reviewed by physician. Signing provider agrees with the documented findings, assessment, and plan of care. Objective - Vital Signs Vital signs: Vital Signs Temp 98.9 F 02/05/21 02:00 Pulse 106 H 02/05/21 07:22 Resp 24 02/05/21 02:00 BP 110/71 02/05/21 02:00 Pulse Ox 94 L 02/05/21 02:00 Intake & Output 02/04/21 02/05/21 02/05/21 18:59 06:59 18:59 Output Total 325 Balance -325 Weight 114.5 kg Output: Urine 325 Other: Voiding Method Indwelling Catheter Indwelling Catheter Indwelling Catheter - Labs CBC & Chem 7: 02/04/21 06:45 02/05/21 07:09 Labs: Abnormal Lab Results - Last 24 Hours (Table) 02/04/21 02/04/21 02/04/21 Range/Units 06:45 06:45 11:40 RBC 3.84 L (4.40-5.60) X 10*6/uL Hgb 10.0 L (13.0-17.0) g/dL Hct 33.2 L (39.6-50.0) % MCH 26.0 L (27.0-32.0) pg MCHC 30.1 L (32.0-37.0) g/dL RDW 18.6 H (11.5-14.5) % Immature Gran # 0.23 H (0.00-0.04) X 10*3/uL Monocytes # 1.34 H (0.20-1.00) X 10*3/uL Basophils # 0.12 H (0.00-0.10) X 10*3/uL ABG pH (7.35-7.45) ABG pO2 (83-108) mmHg ABG HCO3 (21-25) mmol/L ABG Total CO2 (19-24) mmol/L Sodium 133 L (137-145) mmol/L Carbon Dioxide 32 H (22-30) mmol/L Glucose (74-99) mg/dL POC Glucose (mg/dL) 101 H (75-99) mg/dL Alkaline Phosphatase 207 H (38-126) U/L C-Reactive Protein (<1.0) mg/dL Total Protein 5.2 L (6.3-8.2) g/dL Albumin 2.5 L (3.5-5.0) g/dL Procalcitonin (0.02-0.09) ng/mL 02/04/21 02/04/21 02/04/21 Range/Units 12:57 14:18 14:18 RBC (4.40-5.60) X 10*6/uL Hgb (13.0-17.0) g/dL Hct (39.6-50.0) % MCH (27.0-32.0) pg MCHC (32.0-37.0) g/dL RDW (11.5-14.5) % Immature Gran # (0.00-0.04) X 10*3/uL Monocytes # (0.20-1.00) X 10*3/uL Basophils # (0.00-0.10) X 10*3/uL ABG pH 7.48 H (7.35-7.45) ABG pO2 68 L (83-108) mmHg ABG HCO3 32 H (21-25) mmol/L ABG Total CO2 34 H (19-24) mmol/L Sodium (137-145) mmol/L Carbon Dioxide (22-30) mmol/L Glucose (74-99) mg/dL POC Glucose (mg/dL) (75-99) mg/dL Alkaline Phosphatase (38-126) U/L C-Reactive Protein 14.2 H (<1.0) mg/dL Total Protein (6.3-8.2) g/dL Albumin (3.5-5.0) g/dL Procalcitonin 0.30 H (0.02-0.09) ng/mL 02/04/21 02/04/21 02/05/21 Range/Units 16:48 20:18 07:09 RBC (4.40-5.60) X 10*6/uL Hgb (13.0-17.0) g/dL Hct (39.6-50.0) % MCH (27.0-32.0) pg MCHC (32.0-37.0) g/dL RDW (11.5-14.5) % Immature Gran # (0.00-0.04) X 10*3/uL Monocytes # (0.20-1.00) X 10*3/uL Basophils # (0.00-0.10) X 10*3/uL ABG pH (7.35-7.45) ABG pO2 (83-108) mmHg ABG HCO3 (21-25) mmol/L ABG Total CO2 (19-24) mmol/L Sodium 132 L (137-145) mmol/L Carbon Dioxide (22-30) mmol/L Glucose 50 L (74-99) mg/dL POC Glucose (mg/dL) 126 H 159 H (75-99) mg/dL Alkaline Phosphatase (38-126) U/L C-Reactive Protein (<1.0) mg/dL Total Protein (6.3-8.2) g/dL Albumin (3.5-5.0) g/dL Procalcitonin (0.02-0.09) ng/mL 02/05/21 Range/Units 07:36 RBC (4.40-5.60) X 10*6/uL Hgb (13.0-17.0) g/dL Hct (39.6-50.0) % MCH (27.0-32.0) pg MCHC (32.0-37.0) g/dL RDW (11.5-14.5) % Immature Gran # (0.00-0.04) X 10*3/uL Monocytes # (0.20-1.00) X 10*3/uL Basophils # (0.00-0.10) X 10*3/uL ABG pH (7.35-7.45) ABG pO2 (83-108) mmHg ABG HCO3 (21-25) mmol/L ABG Total CO2 (19-24) mmol/L Sodium (137-145) mmol/L Carbon Dioxide (22-30) mmol/L Glucose (74-99) mg/dL POC Glucose (mg/dL) 62 L (75-99) mg/dL Alkaline Phosphatase (38-126) U/L C-Reactive Protein (<1.0) mg/dL Total Protein (6.3-8.2) g/dL Albumin (3.5-5.0) g/dL Procalcitonin (0.02-0.09) ng/mL Microbiology - Last 24 Hours (Table) 02/04/21 15:23 Gram Stain - Preliminary Sputum Sputum Culture - Preliminary
--- NOTE | 2021-02-05 10:02 | P.PN ---
Subjective Progress Note Date: 02/05/21 Duke Sánchez, is a 75 year old male who presented to [facility] emergency room with a chief complaint of bilateral lower extremity swelling erythema and tenderness He was evaluated in the emergency room vital examination on presentation revealed a temperature of 98.2 pulse 133 respiration 18 blood pressure 117/62 pulse ox 96% on 4 L nasal cannula Laboratory data reveals sodium was low at 127 BUN 18 creatinine 0.59 alkaline phosphatase 213 white blood count count 4.4 hemoglobin 10.0 platelet count low at 93 Testing in the emergency room revealed chest x-ray revealed interstitial pul monary infiltrate suggestive of interstitial fibrosis, with possible left lower lobe pneumonia, EKG revealed atrial flutter with 21 conduction with a heart rate of 129 Patient was admitted to medical floor for further evaluation and treatment Past medical history is significant for Congestive Heart Failure, COPD, history of insulin-dependent Diabetes Mellitus, history of stroke, Hyperlipidemia, H ypertension, Liver Disease, Memory Impairment, Pneumonia, Prostate Disorder, Seizure Disorder, obstructive sleep apnea maintained on CPAP, history of benign prostatic hypertrophy, gastroesophageal reflux disease, history of chronic hepatitis C, history of esophageal viruses with multiple episodes of bleeding in the past, history of myasthenia gravis and history of depression On 01/26/2021 Patient was seen and examined on the medical floor, he is alert and oriented x 3 in no distress, he denies any complaints there is no fever or chills no headache or dizziness no chest pain no shortness of breath no palpitation no cough no nausea or vomiting no abdominal pain no diarrhea no blood in the stools no burning with urination no frequency or urgency and no hematuria, there is no weakness or numbness in any of the extremities no change in vision speech or gait. Patient is complaining of runny nose and requesting a noses pray will add Flonase nose spray at this time he denies any other compl aints. On 01/27/2021 patient is alert and oriented 3. Patient's lower extremity cellulites does appear to be improving. Patient remains on IV Unasyn. Infectious disease and pulmonary services are following. Wound care service is consulted. PT OT consulted. Social work consulted for discharge planning. at this time patient denies chest pain. Patient denies nausea vomiting or diarrhea. Patient denies any urinary burning or frequency On 01/28/2021 Patient was seen and examined on the medical floor, he is alert and oriented x 3 in no distress, he was complaining of nausea and generalized weakness this morning otherwise he denies any complaints there is no fever or chills no headache or dizziness no chest pain no shortness of breath no palpitation no cough or vomiting no abdominal pain no diarrhea no blood in the stools no burning with urination no frequency or urgency and no hematuria, there is no weakness or numbness in any of the extremities no change in vision speech or gait. On 01/29/2021 patient is alert and oriented 3. Patient remains on IV Unasyn. Infectious disease, pulmonary services and wound care service is following. 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 At this time patient denies chest pain or shortness breath. Patient denies nausea vomiting or diarrhea. Patient denies any urinary frequency. On 01/30/2021 Patient was seen and examined on the medical floor, he is alert and oriented x 3 in no distress, he denies any complaints there is no fever or chills no headache or dizziness no chest pain no shortness of breath no palpitation no cough no nausea or vomiting no abdominal pain no diarrhea no blood in the stools no burning with urination no frequency or urgency and no hematuria, there is no weakness or numbness in any of the extremities no change in vision speech or gait., Patient had an episode of hypoglycemia this morning with blurred vision, otherwise he denies any complaints at this time On 01/31/2021 patient is alert and oriented 3. Patient complaining of increased fluid retention. Will resume patient's home Lasix and Aldactone that was currently on hold due to hyponatremia. Cardiology services have been consulted. Lung sounds are clear to auscultation. Patient reports he is having some shortness of breath will order chest x-ray. Patient denies chest pain. Patient denies nausea vomiting or diarrhea. Patient denies any urinary burning or frequency. On 02/01/2021 patient was seen and examined on the medical floor he is somnolent arousable answer questions appropriately when aroused, he had an episode of severe shortness of breath early this morning 18 where called patient received 2 doses of IV Lasix 40 mg he improved significantly dose of Lasix was changed to 40 mg IV every 12 hours, at this time patient is resting comfortably he denies any chest pain or shortness of breath On 02/02/2021 Patient was seen and examined on the medical floor, he is alert and oriented x 3 in no distress, he is complaining of generalized weakness and fatigue otherwise he denies any complaints there is no fever or chills no headache or dizziness no chest pain no shortness of breath no palpitation no cough no nausea or vomiting no abdominal pain no diarrhea no blood in the stools no burning with urination no frequency or urgency and no hematuria, there is no weakness or numbness in any of the extremities no change in vision speech or gait. On 02/03/2021 patient's alert and oriented 3. Patient is complaining of some shortness breath. Patient denies chest pain. Patient denies nausea vomiting or diarrhea. Patient remains on IV Lasix and IV Unasyn. Denies any urinary burning or frequency. Patient's heart rate elevated at 122. Per cardiology medications to be adjusted. On 02/04/2021 patient was seen and examined on the medical floor he is alert and oriented 1 and he is complaining of worsening shortness of breath, repeat chest x-ray was done today and revealed bilateral lung infiltrates suggestive of pneumonia versus pulmonary edema and extra dose of IV Lasix 40 mg was given patient was placed on BiPAP arterial blood gases were ordered, cardiology pulmonary and infectious disease consultants were contacted to reevaluate patient. Dr. Ron infectious disease added Levaquin 750 mg by mouth daily. Patient has poor oral intake and his albumin has dropped to 2.5 will give 1 dose of IV albumin prior to the next IV Lasix dose will follow closely On 02/05/2021 patient is alert and oriented and follows commands. Patient currently satting 88% on nasal cannula BiPAP at bedside patient currently eating breakfast. Patient remains on IV Lasix. Patient denies chest pain. Patient denies nausea vomiting or diarrhea. Patient denies any urinary burning or frequency. Cardiology, pulmonary and infectious disease services are following reviewed Objective - Vital Signs Vital signs: Vital Signs Temp 98.4 F 02/05/21 08:00 Pulse 129 H 02/05/21 08:00 Resp 24 02/05/21 08:00 BP 118/62 02/05/21 08:00 Pulse Ox 90 L 02/05/21 08:00 Intake & Output 02/04/21 02/05/21 02/05/21 18:59 06:59 18:59 Output Total 325 Balance -325 Weight 114.5 kg Output: Urine 325 Other: Voiding Method Indwelling Catheter Indwelling Catheter Indwelling Catheter - Exam In general patient is alert and oriented x 3 in no distress HEENT head normocephalic and atraumatic Neck is supple no JVD no goiter no lymphadenopathy no carotid bruit Chest examination is clear to auscultation no crackles no wheezing Cardiac exam reveals regular heart sounds S1 and S2 no gallops no murmurs Abdomen is soft nontender no organomegaly with normal bowel sounds Extremity exam reveals mild edema bilaterally with bilateral pretibial erythema Neurological examination reveals no gross focal deficits - Labs CBC & Chem 7: 02/04/21 06:45 02/05/21 07:09 Labs: Abnormal Lab Results - Last 24 Hours (Table) 02/04/21 02/04/21 02/04/21 Range/Units 06:45 06:45 11:40 RBC 3.84 L (4.40-5.60) X 10*6/uL Hgb 10.0 L (13.0-17.0) g/dL Hct 33.2 L (39.6-50.0) % MCH 26.0 L (27.0-32.0) pg MCHC 30.1 L (32.0-37.0) g/dL RDW 18.6 H (11.5-14.5) % Immature Gran # 0.23 H (0.00-0.04) X 10*3/uL Monocytes # 1.34 H (0.20-1.00) X 10*3/uL Basophils # 0.12 H (0.00-0.10) X 10*3/uL ABG pH (7.35-7.45) ABG pO2 (83-108) mmHg ABG HCO3 (21-25) mmol/L ABG Total CO2 (19-24) mmol/L Sodium 133 L (137-145) mmol/L Carbon Dioxide 32 H (22-30) mmol/L Glucose (74-99) mg/dL POC Glucose (mg/dL) 101 H (75-99) mg/dL Alkaline Phosphatase 207 H (38-126) U/L C-Reactive Protein (<1.0) mg/dL Total Protein 5.2 L (6.3-8.2) g/dL Albumin 2.5 L (3.5-5.0) g/dL Procalcitonin (0.02-0.09) ng/mL 02/04/21 02/04/21 02/04/21 Range/Units 12:57 14:18 14:18 RBC (4.40-5.60) X 10*6/uL Hgb (13.0-17.0) g/dL Hct (39.6-50.0) % MCH (27.0-32.0) pg MCHC (32.0-37.0) g/dL RDW (11.5-14.5) % Immature Gran # (0.00-0.04) X 10*3/uL Monocytes # (0.20-1.00) X 10*3/uL Basophils # (0.00-0.10) X 10*3/uL ABG pH 7.48 H (7.35-7.45) ABG pO2 68 L (83-108) mmHg ABG HCO3 32 H (21-25) mmol/L ABG Total CO2 34 H (19-24) mmol/L Sodium (137-145) mmol/L Carbon Dioxide (22-30) mmol/L Glucose (74-99) mg/dL POC Glucose (mg/dL) (75-99) mg/dL Alkaline Phosphatase (38-126) U/L C-Reactive Protein 14.2 H (<1.0) mg/dL Total Protein (6.3-8.2) g/dL Albumin (3.5-5.0) g/dL Procalcitonin 0.30 H (0.02-0.09) ng/mL 02/04/21 02/04/21 02/05/21 Range/Units 16:48 20:18 07:09 RBC (4.40-5.60) X 10*6/uL Hgb (13.0-17.0) g/dL Hct (39.6-50.0) % MCH (27.0-32.0) pg MCHC (32.0-37.0) g/dL RDW (11.5-14.5) % Immature Gran # (0.00-0.04) X 10*3/uL Monocytes # (0.20-1.00) X 10*3/uL Basophils # (0.00-0.10) X 10*3/uL ABG pH (7.35-7.45) ABG pO2 (83-108) mmHg ABG HCO3 (21-25) mmol/L ABG Total CO2 (19-24) mmol/L Sodium 132 L (137-145) mmol/L Carbon Dioxide (22-30) mmol/L Glucose 50 L (74-99) mg/dL POC Glucose (mg/dL) 126 H 159 H (75-99) mg/dL Alkaline Phosphatase (38-126) U/L C-Reactive Protein (<1.0) mg/dL Total Protein (6.3-8.2) g/dL Albumin (3.5-5.0) g/dL Procalcitonin (0.02-0.09) ng/mL 02/05/21 Range/Units 07:36 RBC (4.40-5.60) X 10*6/uL Hgb (13.0-17.0) g/dL Hct (39.6-50.0) % MCH (27.0-32.0) pg MCHC (32.0-37.0) g/dL RDW (11.5-14.5) % Immature Gran # (0.00-0.04) X 10*3/uL Monocytes # (0.20-1.00) X 10*3/uL Basophils # (0.00-0.10) X 10*3/uL ABG pH (7.35-7.45) ABG pO2 (83-108) mmHg ABG HCO3 (21-25) mmol/L ABG Total CO2 (19-24) mmol/L Sodium (137-145) mmol/L Carbon Dioxide (22-30) mmol/L Glucose (74-99) mg/dL POC Glucose (mg/dL) 62 L (75-99) mg/dL Alkaline Phosphatase (38-126) U/L C-Reactive Protein (<1.0) mg/dL Total Protein (6.3-8.2) g/dL Albumin (3.5-5.0) g/dL Procalcitonin (0.02-0.09) ng/mL Microbiology - Last 24 Hours (Table) 02/04/21 15:23 Gram Stain - Preliminary Sputum Sputum Culture - Preliminary Assessment and Plan Plan: Bilateral lower extremity cellulitis Atrial fibrillation with rapid ventricular response Hyponatremia sodium on presentation 127 Underlying history of insulin-dependent diabetes mellitus Underlying history of hypertension Underlying history of hyperlipidemia Underlying history of coronary artery disease Underlying history of congestive heart failure Poor nutritional status with moderate protein calorie malnutrition started on insure supplements Bilateral infiltrates possible pneumonia. Infectious disease services are following antibiotics adjusted to Levaquin and Zosyn Acute exacerbation of chronic diastolic congestive heart failure. Patient started on IV Lasix At this time patient is admitted to medical floor, he was started on IV antibiotics, infectious disease following Cardiology is following and adjusting medications at this time dose of metoprolol was increased and digoxin was discontinued Cardiology, pulmonary and infectious disease service is following Patient maintained on IV Lasix Antibiotics of Levaquin and Zosyn
[2021-02-05] MEDS: ALPRAZolam 0.25 MG TAB PO PRN ×2 (10:58→15:44)
[2021-02-05 11:59] LABS: Glucose,Whole Blood 96 mg/dL (75-99)
--- NOTE | 2021-02-05 12:16 | P.PN ---
Subjective Progress Note Date: 02/05/21 Principal diagnosis: Acute on chronic hypoxic respiratory failure related to multiple etiologies including chronic congestive heart failure, COPD Bilateral lower extremity cellulitis Acute on chronic diastolic heart failure Chronic paroxysmal atrial fibrillation with RVR Electrolyte imbalance related to hyponatremia Hypertension hypertensive cardiovascular disease Dyslipidemia coronary artery disease 02/05/2021, patient seen eval reexamined during the rounds, patient remains on BiPAP 12/60-65% oxygen oxygen saturation is 92% patient is tachypneic, he was on high flow oxygen yesterday but today unable to wean him off of BiPAP, patient is awake and alert, sinus present bedside and have a detailed discussion with the patient and son, and discussed with them about her overall poor prognosis and poor likelihood of recovery option of hospice also recommended to them, patient remains on broad-spectrum antibiotics diuretics and continuation of home medications, chest x-ray continue show diffuse bilateral infiltrate likely combination of the pulmonary fibrosis predominantly with some element of the pulmonary edema, patient is being followed by cardiovascular services chronic atrial fibrillation, anticoagulation was discontinued, last echo was in December with ejection fraction of 50%, moderate aortic stenosis, mild TR and MR noted LVH noted as well RVSP less than 35, last set of labs reviewed and performed earlier this morning BUN/creatinine is normal 18.75 BNP is over 2500 02/03/2021, patient seen eval examined during the rounds labs reviewed medications reviewed care plan discussed, Restoril status remains stable denies any chest pain respiratory oxygen saturation is mid 90s on 7 L oxygen, discussed with RN and a prescription provided for BiPAP machine, continue titrated oxygen down to 2-4 L keeping her oxygen over 92%, 02/02/2021, patient seen eval reexamined during the rounds labs reviewed medications reviewed, oxygen gradually being titrated down now on 7 L high flow oxygen saturation is 95% patient has been getting BiPAP machine at nighttime, repeat chest x-ray reviewed bilateral infiltrates seen likely associated with interstitial lung disease with component of fluid overload 02/01/2021, patient seen eval reexamined during the rounds currently patient is on high flow nasal cannula 30 L/m, patient has a sudden onset of respiratory dis tress and had a rapid response initially was placed on the BiPAP and given Lasix with that slight improvement is present, able to come off of BiPAP now saturation is 96-98% on 13 L, his urine is positive for Klebsiella pneumonia, patient has been on broad-spectrum antibiotics, chest x-ray performed at rapid response continue show patchy bilateral infiltrate due to chronic pulmonary fibrosis with some component of fluid overload, patient has received Lasix, would recommend to continue Lasix, continue BiPAP machine at nighttime and supplemental oxygen during day with slow taper 01/29/2021, overall remains stable, using oxygen off and on, hemodynamic status stable, remains afebrile, oxygen saturation 90% on 4 L, urine culture came back positive for Klebsiella 01/27/2021, patient seen eval examined during the rounds labs reviewed medications reviewed care plan discussed, patient remains on 2 L oxygen oxygen saturation remained stable shortness of breath stable denies any cough or sputum production, currently on broad-spectrum antibiotics for cellulitis of the legs, edema appears to be improving Patient is a 75-year-old male well-known to me patient admitted into the hospital with swelling and cellulitis of the lower extremity, patient has a long-standing history of congestive heart failure, developed cellulitis which has been marked patient remains on broad-spectrum antibiotics, patient has multiple ALLERGIES and COPD as well, also has issues associated with the BPH, GERD, COPD, congestive heart failure, history of multiple CVAs and TIAs, memory impairment, recent pneumonia as well as sleep disorder breathing and sleep apnea, patient finished therapy of the aspiration pneumonia, her sputum cleared him is positive for MSSA patient was discharged on oral Augmentin, patient last few days have progressive swelling of the lower extremity up to mid thigh level, the chest x-ray performed at the time admission revealed interstitial edema Objective - Vital Signs Vital signs: Vital Signs Temp 98.4 F 02/05/21 08:00 Pulse 74 02/05/21 11:44 Resp 24 02/05/21 08:00 BP 118/62 02/05/21 08:00 Pulse Ox 90 L 02/05/21 08:00 Intake & Output 02/04/21 02/05/21 02/05/21 18:59 06:59 18:59 Output Total 325 Balance -325 Weight 114.5 kg Output: Urine 325 Other: Voiding Method Indwelling Catheter Indwelling Catheter Indwelling Catheter - Exam - Constitutional General appearance: disheveled, mild distress, morbidly obese - EENT Eyes: EOMI, PERRLA Ears: bilateral: normal - Neck Neck: normal ROM Carotids: bilateral: upstroke normal Thyroid: bilateral: normal size - Respiratory Respiratory: bilateral: diminished, positive bilateral crackles - Cardiovascular Rhythm: regular Heart sounds: normal: S1, S2 - Gastrointestinal General gastrointestinal: normal bowel sounds, soft - Neurologic Neurologic: CNII-XII intact - Musculoskeletal Musculoskeletal: gait normal, generalized weakness, strength equal bilaterally - Psychiatric Psychiatric: A&O x's 3, appropriate affect, intact judgment & insight - Labs CBC & Chem 7: 02/04/21 06:45 02/05/21 07:09 Labs: Abnormal Lab Results - Last 24 Hours (Table) 02/04/21 02/04/21 02/04/21 Range/Units 06:45 12:57 14:18 ABG pH 7.48 H (7.35-7.45) ABG pO2 68 L (83-108) mmHg ABG HCO3 32 H (21-25) mmol/L ABG Total CO2 34 H (19-24) mmol/L Sodium 133 L (137-145) mmol/L Carbon Dioxide 32 H (22-30) mmol/L Glucose (74-99) mg/dL POC Glucose (mg/dL) (75-99) mg/dL Alkaline Phosphatase 207 H (38-126) U/L C-Reactive Protein 14.2 H (<1.0) mg/dL Total Protein 5.2 L (6.3-8.2) g/dL Albumin 2.5 L (3.5-5.0) g/dL Procalcitonin (0.02-0.09) ng/mL 02/04/21 02/04/21 02/04/21 Range/Units 14:18 16:48 20:18 ABG pH (7.35-7.45) ABG pO2 (83-108) mmHg ABG HCO3 (21-25) mmol/L ABG Total CO2 (19-24) mmol/L Sodium (137-145) mmol/L Carbon Dioxide (22-30) mmol/L Glucose (74-99) mg/dL POC Glucose (mg/dL) 126 H 159 H (75-99) mg/dL Alkaline Phosphatase (38-126) U/L C-Reactive Protein (<1.0) mg/dL Total Protein (6.3-8.2) g/dL Albumin (3.5-5.0) g/dL Procalcitonin 0.30 H (0.02-0.09) ng/mL 02/05/21 02/05/21 Range/Units 07:09 07:36 ABG pH (7.35-7.45) ABG pO2 (83-108) mmHg ABG HCO3 (21-25) mmol/L ABG Total CO2 (19-24) mmol/L Sodium 132 L (137-145) mmol/L Carbon Dioxide (22-30) mmol/L Glucose 50 L (74-99) mg/dL POC Glucose (mg/dL) 62 L (75-99) mg/dL Alkaline Phosphatase (38-126) U/L C-Reactive Protein (<1.0) mg/dL Total Protein (6.3-8.2) g/dL Albumin (3.5-5.0) g/dL Procalcitonin (0.02-0.09) ng/mL Microbiology - Last 24 Hours (Table) 02/04/21 15:23 Gram Stain - Preliminary Sputum Sputum Culture - Preliminary Assessment and Plan Assessment: Suspect evidence of fluid overload with pulmonary fibrosis agree with diuresis BiPAP and supplemental oxygen Failure to wean from BiPAP Acute on chronic hypoxic respiratory failure related to multiple processes including fluid overload COPD pulmonary fibrosis Klebsiella urinary tract infection Bilateral lower extremity cellulitis Acute on chronic diastolic heart failure Chronic paroxysmal atrial fibrillation with RVR Electrolyte imbalance related to hyponatremia Hypertension hypertensive cardiovascular disease Dyslipidemia coronary artery disease Plan: Overall plan is to continue gently diureses, Continue BiPAP We'll order a computed tomography scan of the chest with IV contrast to rule out PE No code and hospice options discussed with the patient and son awaiting their response along with IV antibiotics, can be changed to by mouth as tolerated continue deep breathing sense incentive spirometry, further plan of care as per clinical response to therapy Time with Patient: Greater than 30
--- NOTE | 2021-02-05 13:03 | US ---
EXAMINATION TYPE: US venous doppler duplex LE DATE OF EXAM: 02/05/2021 12:17 PM COMPARISON: NONE CLINICAL HISTORY: dvt. cellulitis. Difficulty breathing. SIDE PERFORMED: Bilateral TECHNIQUE: The lower extremity deep venous system is examined utilizing real time linear array sonog javier with graded compression, doppler sonography and color-flow sonography. VESSELS IMAGED: Common Femoral Vein Deep Femoral Vein Greater Saphenous Vein *- limited visualization of left Femoral Vein Popliteal Vein Small Saphenous Vein * Proximal Calf Veins (* superficial vessels) Right Leg: Negative for DVT Left Leg: Negative for DVT IMPRESSION: Grayscale, color doppler, spectral doppler imaging performed of the deep veins of the lo wer extremities. There is normal flow, compressibility, vascular waveforms.
[2021-02-05 14:43] VITALS: BMI 34.2
[2021-02-05] MEDS: METOPROLOL TARTRATE 50 MG TAB PO SCH ×2 (16:22→21:39)
[2021-02-05] MEDS: ENOXAPARIN 40 MG/0.4 ML SYRINGE SQ SCH (16:23)
--- NOTE | 2021-02-05 17:00 | CT ---
EXAMINATION TYPE: CT angio chest DATE OF EXAM: 02/05/2021 COMPARISON: 12/13/2016 HISTORY: SOB CT DLP: 951.7 mGycm Automated exposure control for dose reduction was used. CONTRAST: Performed with IV Contrast, patient injected with 89cc mL of Isovue 370. There are 3-D post processed images. There is extensive airspace infiltrate throughout the lungs. There are bilateral pleural effusions an d larger on the right side. Heart appears enlarged. There is no pericardial effusion. Thoracic aorta is intact. There is no aneurysm. There is no evidence of dissection. Ascending aorta m easures 3.4 cm. I see no significant mediastinal adenopathy. There are some enlarged right bronchial lymph nodes. I see no definite filling defect in the pulmonary arteries. Bony thorax is intact. Sternum is intact. IMPRESSION: No convincing evidence of pulmonary embolism. Pleural effusions and extensive pulmonary airspace infiltrates consistent with RDS and or congestive heart failure. Abnormalities are essentially new compared to old exam.
[2021-02-05 17:07] LABS: Glucose,Whole Blood 101 mg/dL (75-99)
[2021-02-05] MEDS: DEXAMETHASONE SOD PHOSPHATE 4 MG/ML 1 ML VIAL IV SCH (17:48)
[2021-02-05] MEDS: LAMIVUDINE 150 MG PO SCH (19:33)
[2021-02-05 21:32] LABS: Glucose,Whole Blood 137 mg/dL (75-99)
[2021-02-05] MEDS: INSULIN DETEMIR (LEVEMIR) 100 UNIT/ML SYR SQ SCH (21:39)
[2021-02-05] MEDS: FINASTERIDE 5 MG TAB PO SCH (21:40)
--- NOTE | 2021-02-06 00:12 | PN ---
PROGRESS NOTE DATE OF SERVICE: 02/05/2021 REASON FOR FOLLOWUP: Some sort of colitis. Question of pneumonia. INTERVAL HISTORY: Patient is afebrile. The patient is complaining of shortness of breath and is requiring BiPAP to support his oxygenation. The patient denies having any chest pain. He did have a cough, not bringing up sputum. No abdominal pain. No diarrhea. PHYSICAL EXAMINATION: Blood pressure 112/68 with a pulse of 81, temperature 99; he is 96% on BiPAP. General description is an elderly male lying in bed in no distress. Respiratory system: Unlabored breathing, coarse breath sounds bilaterally. No wheeze. Heart S1, S2. Regular rate and rhythm. Abdomen: Soft. No tenderness. Extremities: Did have diffuse swelling in the legs and no redness has decreased. LABS: BUN of 18, creatinine 0.75. NT proBNP is 2130. CRP is 14, 0.30. CT angiogram was negative for any PE. Did show diffuse changes suggestive of ARDS pattern. DIAGNOSTIC IMPRESSION AND PLAN: Patient with bilateral lower extremity cellulitis adequately treated. The patient now with worsening of his respiratory status, possible fluid overload. Clinically not behaving as typical pneumonia, but he has been covered with Zosyn and Levaquin. Multiple family members at the bedside questions. Their questions and concerns were answered. MMODL / IJN: [id number] /
[2021-02-06] MEDS: DEXAMETHASONE SOD PHOSPHATE 4 MG/ML 1 ML VIAL IV SCH ×3 (02:12→17:16)
[2021-02-06] MEDS: PYRIDOSTIGMINE 60 MG TAB PO SCH ×5 (03:25→17:36)
[2021-02-06] MEDS: ALPRAZolam 0.25 MG TAB PO PRN (03:59)
[2021-02-06] MEDS: DILTIAZEM ORAL 30 MG TAB PO SCH ×3 (05:54→21:07)
[2021-02-06 07:02] LABS: Glucose,Whole Blood 195 mg/dL (75-99)
[2021-02-06] MEDS: INSULIN ASPART (NovoLOG) 100 UNIT/ML VIAL SQ SCH ×4 (07:45→21:08)
[2021-02-06] MEDS: IPRATROPIUM-ALBUTEROL 3 ML NEB INHALATION SCH ×4 (08:37→19:35)
--- NOTE | 2021-02-06 09:38 | P.PN ---
Subjective Progress Note Date: 02/06/21 HISTORY OF PRESENT ILLNESS: This is a 75-year-old male with a past medical history significant for congestive heart failure, diabetes mellitus, pulmonary fibrosis, COPD with home oxygen use, and paroxysmal atrial fibrillation. Patient follows with primary care physician out of the [place] but does not follow with a social media campaign manager regularly. We have been asked to see the patient in consultation for atrial fibrillation. Patient examined at the bedside. Patient was recently hospitalized secondary to bilateral pneumonia. Patient was found to have atrial fibrillation at that time. He was initially started on anticoagulation however this was discontinued as patient was deemed high risk for anticoagulation. Patient was discharged to [facility]. He presented back to the hospital with increased lower extremity edema. He was found to have bilateral lower extremity cellulitis and was started on antibiotics. EKG reveals atrial flutter with 2-1 conduction. Telemetry currently reveals atrial fibrillation with controlled ventricular rate Chest xray pulmonary infiltrates are mostly interstitial and appears slightly worse than last exam. There is evidence for significant interstitial process. Acute pneumonia is possible in the left side. Laboratory data: WBC 4.4. Hemoglobin 10.0. Platelet count 93. Sodium 127. Potassium 5.1. BUN 18. Creatinine 0.59. Current home cardiac medications include spironolactone 75 mg daily, Midodrine 10mg TID, metoprolol tartrate 25 mg 3 times a day, Lasix 60 mg daily, Cardizem 60 mg 3 times a day, digoxin 62.5mcg daily, and aspirin 81mg daily Patient underwent Lexiscan stress test in 2018 which was abnormal. He subsequently underwent cardiac catheterization in [address] Herman revealing normal coronary arteries Echocardiogram completed on 12/28/2020 revealed ejection fraction 50-55%, moderate aortic stenosis, mild mitral regurgitation, and mild tricuspid regurgitation 02/01/2021 Cardiology was reconsulted for CHF. Patient examined at the bedside with Dr. Handley. Patient went into respiratory distress overnight requiring Bipap and IV lasix. Patient is currently on a nasal cannula. He reports his shortness of breath has improved but not resolved. He reports increased lower extremity edema. CXR reveals extensive pulmonary infiltrates. 02/02/2021 Patient examined at the bedside. Patient is currently wearing a Bipap. He reports shortness of breath. He also reports palpitations. Telemetry reveals afib with HR 90-120. Patient has mild improvement in his lower extremity edema. Chest xray from today reveals bilateral diffuse infiltrates correlate for diffuse pneumonia or ARDs. 02/03/2021 Patient examined this morning. Patient is sitting on the side of the bed eating breakfast. Patient wear his BiPAP all night. He is currently on a nasal cannula. Patient states his shortness of breath and his lower extremity edema are improving. He remains on IV Lasix every 12 hours. Fluid balance in the last 24 hours is + 89 mL. BUN 18. Creatinine 0.67. Patient remains in atrial fibrillation. His heart rate is currently uncontrolled. However nursing states his 6:00 dose of Cardizem was not given until recently. 02/05/2021 Patient examined this morning at the bedside. He denies chest pain or pressure. He reports mild shortness of breath. O2 sats are around 88% on nasal cannula. He does have a bipap at the bedside which he as previously wearing. However, it has been removed so the patient could eat breakfast. Heart rate is in the 120s. Nursing reports improvement in heart rates after his morning medications are administered. He remains on IV lasix q12 hours. Kidney function is stable. 02/06/2021 Patient examined this morning at bedside. Patient is currently wearing BiPAP. Patient continues to report mild shortness of breath. He denies chest pain or pressure. Telemetry reveals atrial fibrillation with mildly uncontrolled ventricular rates. She remains on Lasix 40 mg every 8 hours. His lower extremity edema is improving. PHYSICAL EXAM: VITAL SIGNS: Reviewed. GENERAL: Well-developed in no acute distress. HEENT: Head is normocephalic. Pupils are equal, round. Sclerae anicteric. Mucous membranes of the mouth are moist. Neck supple. No JVD or thyromegaly LUNGS: Respirations even and unlabored. Lungs with bibasilar rales noted. HEART: Irregular rate and rhythm. S1 and S2 heard. Systolic murmur noted. ABDOMEN: Soft. Nondistended. Nontender. EXTREMITIES: Normal range of motion. No clubbing or cyanosis. Peripheral pulses intact. Bilateral lower extremity edema present ASSESSMENT: Bilateral infilitrates suggestive of bilateral pneumonia, per CXR 02/02/2021 Lower extremity cellulitis Paroxysmal atrial fibrillation with RVR, not on long-term anticoagulation due to history of bleeding Recent hospitalization for bilateral pneumonia and sepsis Pulmonary fibrosis with home oxygen use Acute exacerbation of chronic diastolic congestive heart failure Hypertension Hyponatremia Valvular heart disease PLAN: Continue current cardiac medications Continue IV Lasix 40 mg every 8 hours Monitor kidney function. Await labs from this morning. Daily weights Accurate I&O Medications adjusted yesterday for optimal heart rate control. We will continue with current regimen for now and continue to monitor telemetry. Further recommendations pending patient course Nurse practitioner note has been reviewed by physician. Signing provider agrees with the documented findings, assessment, and plan of care. Objective - Vital Signs Vital signs: Vital Signs Temp 98.0 F 02/06/21 02:00 Pulse 110 H 02/06/21 08:54 Resp 18 02/06/21 02:00 BP 107/62 02/06/21 02:00 Pulse Ox 91 L 02/06/21 02:00 Intake & Output 02/05/21 02/06/21 02/06/21 18:59 06:59 18:59 Intake Total 540 Output Total 1600 1300 Balance -1600 -760 Weight 114.5 kg 112.8 kg Intake: Oral 540 Output: Urine 1600 1300 Other: Voiding Method Indwelling Catheter Indwelling Catheter - Labs CBC & Chem 7: 02/04/21 06:45 02/05/21 07:09 Labs: Abnormal Lab Results - Last 24 Hours (Table) 02/05/21 02/05/21 02/06/21 Range/Units 17:06 21:25 06:59 POC Glucose (mg/dL) 101 H 137 H 195 H (75-99) mg/dL Microbiology - Last 24 Hours (Table) 02/04/21 15:23 Gram Stain - Preliminary Sputum Sputum Culture - Preliminary
[2021-02-06] MEDS: PIPERACILLIN-TAZOBACTAM 3.375 GM in SODIUM CHLORIDE 0.9% 100 ML IVPB SCH ×2 (10:04→17:16)
[2021-02-06] MEDS: FUROSEMIDE 10 MG/ML 4 ML VIAL IV SCH ×2 (10:04→17:18)
[2021-02-06] MEDS: ENOXAPARIN 40 MG/0.4 ML SYRINGE SQ SCH (10:05)
[2021-02-06] MEDS: MORPHINE SULFATE 4 MG/ML SYRINGE IVP PRN (10:12)
[2021-02-06 11:38] LABS: Glucose,Whole Blood 196 mg/dL (75-99)
[2021-02-06 11:47] LABS: Basophils # (A) 0.03 X 10*3/uL (0.00-0.10); Basophils % (A) 0.4 %; Eosinophils # (A) 0 X 10*3/uL (0.04-0.35); Eosinophils % (A) 0 %; HCT 34.4 % (39.6-50.0); HGB 10.3 g/dL (13.0-17.0); MCH 25.4 pg (27.0-32.0); MCHC 29.9 g/dL (32.0-37.0); MCV 84.7 fL (80.0-97.0); Mean Platelet Volume 10.1 fL (9.5-12.2); Monocytes % (A) 5.2 %; Neutrophils # (A) 5.94 X 10*3/uL (1.80-7.70); Neutrophils % (A) 77.5 %; Platelet Count 164 X 10*3/uL (140-440); RBC 4.06 X 10*6/uL (4.40-5.60); RDW 18.7 % (11.5-14.5); WBC 7.67 X 10*3/uL (4.50-10.00)
[2021-02-06 12:04] LABS: African American GFR (CKD) 96.5 (60.0-200.0); Albumin 2.9 g/dL (3.80-4.90); Albumin/Globulin Ratio 1.26 (1.60-3.17); Anion Gap 7.3 mmol/L (4.00-12.00); BUN/Creat Ratio 24.44 Ratio (12.00-20.00); Calcium 8.4 mg/dL (8.7-10.3); Carbon Dioxide 28.7 mmol/L (21.6-31.8); Globulin 2.3 g/dL (1.6-3.3); Non-African American GFR(CKD) 83.3 (60.0-200.0); Potassium 4.7 mmol/L (3.5-5.5); Total Bilirubin 0.9 mg/dL (0.3-1.2); Total Protein 5.2 g/dL (6.2-8.2)
[2021-02-06] MEDS: SPIRONOLACTONE 25 MG TAB PO SCH (12:12)
[2021-02-06] MEDS: lamoTRIgine 100 MG TAB PO SCH ×2 (12:13→21:07)
[2021-02-06] MEDS: METOPROLOL TARTRATE 50 MG TAB PO SCH ×3 (12:13→21:07)
[2021-02-06] MEDS: PANTOPRAZOLE 40 MG TABLET PO SCH (12:13)
[2021-02-06] MEDS: ASPIRIN 81 MG PO SCH (12:13)
[2021-02-06] MEDS: MAGNESIUM OXIDE 400 MG TAB PO SCH (12:13)
--- NOTE | 2021-02-06 14:23 | P.PN ---
Subjective Progress Note Date: 02/06/21 Duke Sánchez, is a 75 year old male who presented to [facility] emergency room with a chief complaint of bilateral lower extremity swelling erythema and tenderness He was evaluated in the emergency room vital examination on presentation revealed a temperature of 98.2 pulse 133 respiration 18 blood pressure 117/62 pulse ox 96% on 4 L nasal cannula Laboratory data reveals sodium was low at 127 BUN 18 creatinine 0.59 alkaline phosphatase 213 white blood count count 4.4 hemoglobin 10.0 platelet count low at 93 Testing in the emergency room revealed chest x-ray revealed interstitial pul monary infiltrate suggestive of interstitial fibrosis, with possible left lower lobe pneumonia, EKG revealed atrial flutter with 21 conduction with a heart rate of 129 Patient was admitted to medical floor for further evaluation and treatment Past medical history is significant for Congestive Heart Failure, COPD, history of insulin-dependent Diabetes Mellitus, history of stroke, Hyperlipidemia, H ypertension, Liver Disease, Memory Impairment, Pneumonia, Prostate Disorder, Seizure Disorder, obstructive sleep apnea maintained on CPAP, history of benign prostatic hypertrophy, gastroesophageal reflux disease, history of chronic hepatitis C, history of esophageal viruses with multiple episodes of bleeding in the past, history of myasthenia gravis and history of depression On 01/26/2021 Patient was seen and examined on the medical floor, he is alert and oriented x 3 in no distress, he denies any complaints there is no fever or chills no headache or dizziness no chest pain no shortness of breath no palpitation no cough no nausea or vomiting no abdominal pain no diarrhea no blood in the stools no burning with urination no frequency or urgency and no hematuria, there is no weakness or numbness in any of the extremities no change in vision speech or gait. Patient is complaining of runny nose and requesting a noses pray will add Flonase nose spray at this time he denies any other compl aints. On 01/27/2021 patient is alert and oriented 3. Patient's lower extremity cellulites does appear to be improving. Patient remains on IV Unasyn. Infectious disease and pulmonary services are following. Wound care service is consulted. PT OT consulted. Social work consulted for discharge planning. at this time patient denies chest pain. Patient denies nausea vomiting or diarrhea. Patient denies any urinary burning or frequency On 01/28/2021 Patient was seen and examined on the medical floor, he is alert and oriented x 3 in no distress, he was complaining of nausea and generalized weakness this morning otherwise he denies any complaints there is no fever or chills no headache or dizziness no chest pain no shortness of breath no palpitation no cough or vomiting no abdominal pain no diarrhea no blood in the stools no burning with urination no frequency or urgency and no hematuria, there is no weakness or numbness in any of the extremities no change in vision speech or gait. On 01/29/2021 patient is alert and oriented 3. Patient remains on IV Unasyn. Infectious disease, pulmonary services and wound care service is following. Discussed case with social work coordinator discharge planning to [facility]. At this time patient denies chest pain or shortness breath. Patient denies nausea vomiting or diarrhea. Patient denies any urinary frequency. On 01/30/2021 Patient was seen and examined on the medical floor, he is alert and oriented x 3 in no distress, he denies any complaints there is no fever or chills no headache or dizziness no chest pain no shortness of breath no palpitation no cough no nausea or vomiting no abdominal pain no diarrhea no blood in the stools no burning with urination no frequency or urgency and no hematuria, there is no weakness or numbness in any of the extremities no change in vision speech or gait., Patient had an episode of hypoglycemia this morning with blurred vision, otherwise he denies any complaints at this time On 01/31/2021 patient is alert and oriented 3. Patient complaining of increased fluid retention. Will resume patient's home Lasix and Aldactone that was currently on hold due to hyponatremia. Cardiology services have been consulted. Lung sounds are clear to auscultation. Patient reports he is having some shortness of breath will order chest x-ray. Patient denies chest pain. Patient denies nausea vomiting or diarrhea. Patient denies any urinary burning or frequency. On 02/01/2021 patient was seen and examined on the medical floor he is somnolent arousable answer questions appropriately when aroused, he had an episode of severe shortness of breath early this morning 18 where called patient received 2 doses of IV Lasix 40 mg he improved significantly dose of Lasix was changed to 40 mg IV every 12 hours, at this time patient is resting comfortably he denies any chest pain or shortness of breath On 02/02/2021 Patient was seen and examined on the medical floor, he is alert and oriented x 3 in no distress, he is complaining of generalized weakness and fatigue otherwise he denies any complaints there is no fever or chills no headache or dizziness no chest pain no shortness of breath no palpitation no cough no nausea or vomiting no abdominal pain no diarrhea no blood in the stools no burning with urination no frequency or urgency and no hematuria, there is no weakness or numbness in any of the extremities no change in vision speech or gait. On 02/03/2021 patient's alert and oriented 3. Patient is complaining of some shortness breath. Patient denies chest pain. Patient denies nausea vomiting or diarrhea. Patient remains on IV Lasix and IV Unasyn. Denies any urinary burning or frequency. Patient's heart rate elevated at 122. Per cardiology medications to be adjusted. On 02/04/2021 patient was seen and examined on the medical floor he is alert and oriented 1 and he is complaining of worsening shortness of breath, repeat chest x-ray was done today and revealed bilateral lung infiltrates suggestive of pneumonia versus pulmonary edema and extra dose of IV Lasix 40 mg was given patient was placed on BiPAP arterial blood gases were ordered, cardiology pulmonary and infectious disease consultants were contacted to reevaluate patient. Dr. Ron infectious disease added Levaquin 750 mg by mouth daily. Patient has poor oral intake and his albumin has dropped to 2.5 will give 1 dose of IV albumin prior to the next IV Lasix dose will follow closely On 02/05/2021 patient is alert and oriented and follows commands. Patient currently satting 88% on nasal cannula BiPAP at bedside patient currently eating breakfast. Patient remains on IV Lasix. Patient denies chest pain. Patient denies nausea vomiting or diarrhea. Patient denies any urinary burning or frequency. Cardiology, pulmonary and infectious disease services are following reviewed. On 02/06/2021 patient was seen and examined on the medical floor, he is alert responsive in no apparent distress, earlier this morning, he had an episode of worsening shortness of breath with decreased O2 sat duration, he was maintained on BiPAP, at this time he is off BiPAP and is maintained on high flow oxygen via nasal cannula and is tolerating well, there is no fever or chills no headache or dizziness no chest pain, he has shortness of breath occasional cough no nausea or vomiting no abdominal pain no diarrhea and no urinary symptoms. Objective - Vital Signs Vital signs: Vital Signs Temp 98.0 F 02/06/21 02:00 Pulse 110 H 02/06/21 08:54 Resp 18 02/06/21 02:00 BP 107/62 02/06/21 02:00 Pulse Ox 91 L 02/06/21 02:00 Intake & Output 02/05/21 02/06/21 02/06/21 18:59 06:59 18:59 Intake Total 540 Output Total 1600 1300 Balance -1600 -760 Weight 114.5 kg 112.8 kg Intake: Oral 540 Output: Urine 1600 1300 Other: Voiding Method Indwelling Catheter Indwelling Catheter - Exam In general patient is alert and oriented x 3 in no distress HEENT head normocephalic and atraumatic Neck is supple no JVD no goiter no lymphadenopathy no carotid bruit Chest examination is clear to auscultation no crackles no wheezing Cardiac exam reveals regular heart sounds S1 and S2 no gallops no murmurs Abdomen is soft nontender no organomegaly with normal bowel sounds Extremity exam reveals mild edema bilaterally with bilateral pretibial erythema Neurological examination reveals no gross focal deficits - Labs CBC & Chem 7: 02/06/21 07:03 02/06/21 07:03 Labs: Abnormal Lab Results - Last 24 Hours (Table) 02/05/21 02/05/21 02/06/21 Range/Units 17:06 21:25 06:59 POC Glucose (mg/dL) 101 H 137 H 195 H (75-99) mg/dL 02/06/21 Range/Units 11:35 POC Glucose (mg/dL) 196 H (75-99) mg/dL Microbiology - Last 24 Hours (Table) 02/04/21 15:23 Gram Stain - Preliminary Sputum Sputum Culture - Preliminary Assessment and Plan Plan: Bilateral lower extremity cellulitis, improved significantly with IV antibiotics Atrial fibrillation with rapid ventricular response, stable followed by cardiology Hyponatremia sodium on presentation 127 Underlying history of insulin-dependent diabetes mellitus Underlying history of hypertension Underlying history of hyperlipidemia Underlying history of coronary artery disease Underlying history of congestive heart failure Poor nutritional status with moderate protein calorie malnutrition started on insure supplements Bilateral infiltrates possible pneumonia. Infectious disease services are following antibiotics adjusted to Levaquin and Zosyn Acute exacerbation of chronic diastolic congestive heart failure. Patient started on IV Lasix At this time patient is admitted to medical floor, he was started on IV antibiotics, infectious disease following Cardiology is following and adjusting medications at this time dose of metoprol ol was increased and digoxin was discontinued Cardiology, pulmonary and infectious disease service is following Patient maintained on IV Lasix Antibiotics of Levaquin and Zosyn
[2021-02-06] MEDS: LEVOFLOXACIN 750 MG TAB PO SCH (16:07)
[2021-02-06] MEDS: MIDODRINE 5 MG TAB PO SCH ×2 (16:07→17:19)
[2021-02-06] MEDS: MULTIVITAMINS, THERA 1 EACH TAB PO SCH (16:08)
[2021-02-06] MEDS: CHOLECALCIFEROL 25 MCG (1000 IU) TABLET PO SCH (16:16)
[2021-02-06] MEDS: VITAMIN E (DL,TOCOPHERYL ACET) 400 UNIT (180 MG) CAP PO SCH (16:17)
[2021-02-06] MEDS: CYANOCOBALAMIN 500 MCG TAB PO SCH (16:17)
--- NOTE | 2021-02-06 17:03 | PN ---
PROGRESS NOTE DATE OF SERVICE: 02/06/2021 REASON FOR FOLLOWUP: 1. Lower extremity cellulitis. 2. Question of pneumonia. INTERVAL HISTORY: The patient remains to be afebrile. No fever during this hospital admission. The patient is on a non-rebreather, still complaining of dried up blood in the nose and difficulty breathing from that. The patient denies any chest pain. No worsening cough. No abdominal pain. No diarrhea. PHYSICAL EXAMINATION: Blood pressure 120/60 with a pulse of 102. Temperature 98.5. He is 95% on non- rebreather. General description is an elderly male up in the bed in no distress. Respiratory system: Unlabored breathing, decreased intensity of breath sounds. No wheeze. HEART: S1, S2. Regular rate and rhythm. Abdomen soft. No tenderness. Extremities: Swelling and redness has improved. LABS: Hemoglobin is 10.5, white count 7.67, creatinine 0.9. DIAGNOSTIC IMPRESSION AND PLAN: 1. Patient with bilateral lower extremity cellulitis, adequately treated. 2. Patient with worsening respiratory status, combination of fluid and possible pneumonia. Sputum showing gram-negative. Patient is covered with Zosyn, Levaquin that will be continued and adjust antibiotic further on the basis of culture report. 3. Continue supportive care. Family at the bedside. Their questions were answered. MMODL / IJN: [id number] /
[2021-02-06] MEDS: MORPHINE SULFATE IR 15 MG TABLET PO PRN (17:15)
[2021-02-06] MEDS: FLUTICASONE 50MCG/SPRAY NASAL 16GM EA NOSTRIL SCH (17:17)
[2021-02-06 17:31] LABS: Glucose,Whole Blood 195 mg/dL (75-99)
[2021-02-06 20:36] LABS: Glucose,Whole Blood 212 mg/dL (75-99)
[2021-02-06] MEDS: LAMIVUDINE 150 MG PO SCH (21:08)
[2021-02-06] MEDS: INSULIN DETEMIR (LEVEMIR) 100 UNIT/ML SYR SQ SCH (21:08)
[2021-02-06] MEDS: FINASTERIDE 5 MG TAB PO SCH (21:10)
[2021-02-07] MEDS: PIPERACILLIN-TAZOBACTAM 3.375 GM in SODIUM CHLORIDE 0.9% 100 ML IVPB SCH ×3 (00:10→15:50)
[2021-02-07] MEDS: FUROSEMIDE 10 MG/ML 4 ML VIAL IV SCH ×3 (00:10→21:15)
[2021-02-07] MEDS: PYRIDOSTIGMINE 60 MG TAB PO SCH ×6 (00:10→21:13)
[2021-02-07] MEDS: DEXAMETHASONE SOD PHOSPHATE 4 MG/ML 1 ML VIAL IV SCH ×3 (00:12→15:50)
[2021-02-07] MEDS: LORazepam 2 MG/ML INJ IV PRN (00:36)
[2021-02-07] MEDS: DILTIAZEM ORAL 30 MG TAB PO SCH ×3 (05:34→21:13)
[2021-02-07 07:01] LABS: Glucose,Whole Blood 216 mg/dL (75-99)
[2021-02-07] MEDS: INSULIN ASPART (NovoLOG) 100 UNIT/ML VIAL SQ SCH ×4 (07:28→21:14)
[2021-02-07] MEDS: PANTOPRAZOLE 40 MG TABLET PO SCH (07:29)
[2021-02-07] MEDS: ENOXAPARIN 40 MG/0.4 ML SYRINGE SQ SCH (07:29)
[2021-02-07] MEDS: lamoTRIgine 100 MG TAB PO SCH ×2 (07:29→21:13)
[2021-02-07] MEDS: LEVOFLOXACIN 750 MG TAB PO SCH (07:29)
[2021-02-07] MEDS: ASPIRIN 81 MG PO SCH (07:30)
[2021-02-07] MEDS: MULTIVITAMINS, THERA 1 EACH TAB PO SCH (07:30)
[2021-02-07] MEDS: MAGNESIUM OXIDE 400 MG TAB PO SCH (07:30)
[2021-02-07] MEDS: METOPROLOL TARTRATE 50 MG TAB PO SCH ×3 (07:30→21:13)
[2021-02-07] MEDS: MORPHINE SULFATE IR 15 MG TABLET PO PRN ×2 (07:30→12:38)
[2021-02-07] MEDS: SPIRONOLACTONE 25 MG TAB PO SCH (07:31)
[2021-02-07] MEDS: FLUTICASONE 50MCG/SPRAY NASAL 16GM EA NOSTRIL SCH (07:32)
[2021-02-07] MEDS: MIDODRINE 5 MG TAB PO SCH ×3 (07:32→15:48)
[2021-02-07] MEDS: IPRATROPIUM-ALBUTEROL 3 ML NEB INHALATION SCH ×4 (08:39→21:48)
[2021-02-07 09:38] LABS: Basophils # (A) 0.03 X 10*3/uL (0.00-0.10); Basophils % (A) 0.3 %; Eosinophils # (A) 0 X 10*3/uL (0.04-0.35); Eosinophils % (A) 0 %; HCT 32.2 % (39.6-50.0); HGB 9.7 g/dL (13.0-17.0); Lymphocytes # (A) 1.01 X 10*3/uL (0.90-5.00); Lymphocytes % (A) 8.7 %; MCH 25.3 pg (27.0-32.0); MCHC 30.1 g/dL (32.0-37.0); MCV 84.1 fL (80.0-97.0); Mean Platelet Volume 10.4 fL (9.5-12.2); Monocytes # (A) 0.86 X 10*3/uL (0.20-1.00); Monocytes % (A) 7.4 %; Neutrophils # (A) 9.21 X 10*3/uL (1.80-7.70); Neutrophils % (A) 79.8 %; Platelet Count 193 X 10*3/uL (140-440); RBC 3.83 X 10*6/uL (4.40-5.60); RDW 18.6 % (11.5-14.5); WBC 11.55 X 10*3/uL (4.50-10.00)
[2021-02-07 10:05] LABS: African American GFR (CKD) 75.7 (60.0-200.0); Albumin/Globulin Ratio 1.3 (1.60-3.17); Anion Gap 8.6 mmol/L (4.00-12.00); BUN/Creat Ratio 34.55 Ratio (12.00-20.00); Calcium 8.3 mg/dL (8.7-10.3); Carbon Dioxide 27.4 mmol/L (21.6-31.8); Globulin 2.3 g/dL (1.6-3.3); Non-African American GFR(CKD) 65.3 (60.0-200.0); Potassium 4.5 mmol/L (3.5-5.5); Total Bilirubin 0.7 mg/dL (0.2-1.2); Total Protein 5.3 g/dL (6.2-8.2)
--- NOTE | 2021-02-07 10:09 | P.PN ---
Subjective Progress Note Date: 02/07/21 Duke Sánchez, is a 75 year old male who presented to [facility] emergency room with a chief complaint of bilateral lower extremity swelling erythema and tenderness He was evaluated in the emergency room vital examination on presentation revealed a temperature of 98.2 pulse 133 respiration 18 blood pressure 117/62 pulse ox 96% on 4 L nasal cannula Laboratory data reveals sodium was low at 127 BUN 18 creatinine 0.59 alkaline phosphatase 213 white blood count count 4.4 hemoglobin 10.0 platelet count low at 93 Testing in the emergency room revealed chest x-ray revealed interstitial pul monary infiltrate suggestive of interstitial fibrosis, with possible left lower lobe pneumonia, EKG revealed atrial flutter with 21 conduction with a heart rate of 129 Patient was admitted to medical floor for further evaluation and treatment Past medical history is significant for Congestive Heart Failure, COPD, history of insulin-dependent Diabetes Mellitus, history of stroke, Hyperlipidemia, H ypertension, Liver Disease, Memory Impairment, Pneumonia, Prostate Disorder, Seizure Disorder, obstructive sleep apnea maintained on CPAP, history of benign prostatic hypertrophy, gastroesophageal reflux disease, history of chronic hepatitis C, history of esophageal viruses with multiple episodes of bleeding in the past, history of myasthenia gravis and history of depression On 01/26/2021 Patient was seen and examined on the medical floor, he is alert and oriented x 3 in no distress, he denies any complaints there is no fever or chills no headache or dizziness no chest pain no shortness of breath no palpitation no cough no nausea or vomiting no abdominal pain no diarrhea no blood in the stools no burning with urination no frequency or urgency and no hematuria, there is no weakness or numbness in any of the extremities no change in vision speech or gait. Patient is complaining of runny nose and requesting a noses pray will add Flonase nose spray at this time he denies any other compl aints. On 01/27/2021 patient is alert and oriented 3. Patient's lower extremity cellulites does appear to be improving. Patient remains on IV Unasyn. Infectious disease and pulmonary services are following. Wound care service is consulted. PT OT consulted. Social work consulted for discharge planning. at this time patient denies chest pain. Patient denies nausea vomiting or diarrhea. Patient denies any urinary burning or frequency On 01/28/2021 Patient was seen and examined on the medical floor, he is alert and oriented x 3 in no distress, he was complaining of nausea and generalized weakness this morning otherwise he denies any complaints there is no fever or chills no headache or dizziness no chest pain no shortness of breath no palpitation no cough or vomiting no abdominal pain no diarrhea no blood in the stools no burning with urination no frequency or urgency and no hematuria, there is no weakness or numbness in any of the extremities no change in vision speech or gait. On 01/29/2021 patient is alert and oriented 3. Patient remains on IV Unasyn. Infectious disease, pulmonary services and wound care service is following. Discussed case with maintenance services dispatcher discharge planning to [facility]. At this time patient denies chest pain or shortness breath. Patient denies nausea vomiting or diarrhea. Patient denies any urinary frequency. On 01/30/2021 Patient was seen and examined on the medical floor, he is alert and oriented x 3 in no distress, he denies any complaints there is no fever or chills no headache or dizziness no chest pain no shortness of breath no palpitation no cough no nausea or vomiting no abdominal pain no diarrhea no blood in the stools no burning with urination no frequency or urgency and no hematuria, there is no weakness or numbness in any of the extremities no change in vision speech or gait., Patient had an episode of hypoglycemia this morning with blurred vision, otherwise he denies any complaints at this time On 01/31/2021 patient is alert and oriented 3. Patient complaining of increased fluid retention. Will resume patient's home Lasix and Aldactone that was currently on hold due to hyponatremia. Cardiology services have been consulted. Lung sounds are clear to auscultation. Patient reports he is having some shortness of breath will order chest x-ray. Patient denies chest pain. Patient denies nausea vomiting or diarrhea. Patient denies any urinary burning or frequency. On 02/01/2021 patient was seen and examined on the medical floor he is somnolent arousable answer questions appropriately when aroused, he had an episode of severe shortness of breath early this morning 18 where called patient received 2 doses of IV Lasix 40 mg he improved significantly dose of Lasix was changed to 40 mg IV every 12 hours, at this time patient is resting comfortably he denies any chest pain or shortness of breath On 02/02/2021 Patient was seen and examined on the medical floor, he is alert and oriented x 3 in no distress, he is complaining of generalized weakness and fatigue otherwise he denies any complaints there is no fever or chills no headache or dizziness no chest pain no shortness of breath no palpitation no cough no nausea or vomiting no abdominal pain no diarrhea no blood in the stools no burning with urination no frequency or urgency and no hematuria, there is no weakness or numbness in any of the extremities no change in vision speech or gait. On 02/03/2021 patient's alert and oriented 3. Patient is complaining of some shortness breath. Patient denies chest pain. Patient denies nausea vomiting or diarrhea. Patient remains on IV Lasix and IV Unasyn. Denies any urinary burning or frequency. Patient's heart rate elevated at 122. Per cardiology medications to be adjusted. On 02/04/2021 patient was seen and examined on the medical floor he is alert and oriented 1 and he is complaining of worsening shortness of breath, repeat chest x-ray was done today and revealed bilateral lung infiltrates suggestive of pneumonia versus pulmonary edema and extra dose of IV Lasix 40 mg was given patient was placed on BiPAP arterial blood gases were ordered, cardiology pulmonary and infectious disease consultants were contacted to reevaluate patient. Dr. Ron infectious disease added Levaquin 750 mg by mouth daily. Patient has poor oral intake and his albumin has dropped to 2.5 will give 1 dose of IV albumin prior to the next IV Lasix dose will follow closely On 02/05/2021 patient is alert and oriented and follows commands. Patient currently satting 88% on nasal cannula BiPAP at bedside patient currently eating breakfast. Patient remains on IV Lasix. Patient denies chest pain. Patient denies nausea vomiting or diarrhea. Patient denies any urinary burning or frequency. Cardiology, pulmonary and infectious disease services are following reviewed. On 02/06/2021 patient was seen and examined on the medical floor, he is alert responsive in no apparent distress, earlier this morning, he had an episode of worsening shortness of breath with decreased O2 sat duration, he was maintained on BiPAP, at this time he is off BiPAP and is maintained on high flow oxygen via nasal cannula and is tolerating well, there is no fever or chills no headache or dizziness no chest pain, he has shortness of breath occasional cough no nausea or vomiting no abdominal pain no diarrhea and no urinary symptoms. On 02/07/2021 patient's alert and oriented currently on nonrebreather. Dexamethasone added per pulmonary. Patient remains on IV Lasix. Antibiotics of Zosyn and Levaquin. Cardiology, pulmonary and infectious disease services following. Nephrology services also consulted. At this time patient denies chest pain. Patient denies nausea vomiting or diarrhea. Patient denies any urinary burning or frequency Objective - Vital Signs Vital signs: Vital Signs Temp 97.5 F L 02/07/21 07:00 Pulse 115 H 02/07/21 08:52 Resp 20 02/07/21 07:00 BP 100/62 02/07/21 07:00 Pulse Ox 95 02/07/21 08:42 Intake & Output 02/06/21 02/07/21 02/07/21 18:59 06:59 18:59 Intake Total 760 Balance 760 Weight 110.5 kg Intake: IV 120 kvo 120 Intake, IV Titration 100 Amount Piperacillin-Tazobactam 3 100 .375 gm In Sodium Chloride 0.9% 100 ml @ 25 mls/hr IVPB Q8HR [facility] Rx# :[id number] Oral 540 Other: Voiding Method Indwelling Catheter Indwelling Catheter - Exam In general patient is alert and oriented x 3 in no distress HEENT head normocephalic and atraumatic Neck is supple no JVD no goiter no lymphadenopathy no carotid bruit Chest examination is clear to auscultation no crackles no wheezing Cardiac exam reveals regular heart sounds S1 and S2 no gallops no murmurs Abdomen is soft nontender no organomegaly with normal bowel sounds Extremity exam reveals mild edema bilaterally with bilateral pretibial erythema Neurological examination reveals no gross focal deficits - Labs CBC & Chem 7: 02/07/21 06:08 02/07/21 06:08 Labs: Abnormal Lab Results - Last 24 Hours (Table) 02/06/21 02/06/21 02/06/21 Range/Units 07:03 07:03 11:35 WBC (4.50-10.00) X 10*3/uL RBC 4.06 L (4.40-5.60) X 10*6/uL Hgb 10.3 L (13.0-17.0) g/dL Hct 34.4 L (39.6-50.0) % MCH 25.4 L (27.0-32.0) pg MCHC 29.9 L (32.0-37.0) g/dL RDW 18.7 H (11.5-14.5) % Immature Gran # 0.30 H (0.00-0.04) X 10*3/uL Neutrophils # (1.80-7.70) X 10*3/uL Eosinophils # 0 L (0.04-0.35) X 10*3/uL Sodium 132 L (135-145) mmol/L Chloride (96-109) mmol/L BUN (9.0-27.0) mg/dL BUN/Creatinine Ratio 24.44 H (12.00-20.00) Ratio Glucose 157 H (70-110) mg/dL POC Glucose (mg/dL) 196 H (75-99) mg/dL Calcium 8.4 L (8.7-10.3) mg/dL Alkaline Phosphatase 203 H (41-126) U/L Total Protein 5.2 L (6.2-8.2) g/dL Albumin 2.90 L (3.80-4.90) g/dL Albumin/Globulin Ratio 1.26 L (1.60-3.17) g/dL 02/06/21 02/06/21 02/07/21 Range/Units 17:29 20:32 06:08 WBC 11.55 H (4.50-10.00) X 10*3/uL RBC 3.83 L (4.40-5.60) X 10*6/uL Hgb 9.7 L (13.0-17.0) g/dL Hct 32.2 L (39.6-50.0) % MCH 25.3 L (27.0-32.0) pg MCHC 30.1 L (32.0-37.0) g/dL RDW 18.6 H (11.5-14.5) % Immature Gran # 0.44 H (0.00-0.04) X 10*3/uL Neutrophils # 9.21 H (1.80-7.70) X 10*3/uL Eosinophils # 0 L (0.04-0.35) X 10*3/uL Sodium (135-145) mmol/L Chloride (96-109) mmol/L BUN (9.0-27.0) mg/dL BUN/Creatinine Ratio (12.00-20.00) Ratio Glucose (70-110) mg/dL POC Glucose (mg/dL) 195 H 212 H (75-99) mg/dL Calcium (8.7-10.3) mg/dL Alkaline Phosphatase (41-126) U/L Total Protein (6.2-8.2) g/dL Albumin (3.80-4.90) g/dL Albumin/Globulin Ratio (1.60-3.17) g/dL 02/07/21 02/07/21 Range/Units 06:08 06:59 WBC (4.50-10.00) X 10*3/uL RBC (4.40-5.60) X 10*6/uL Hgb (13.0-17.0) g/dL Hct (39.6-50.0) % MCH (27.0-32.0) pg MCHC (32.0-37.0) g/dL RDW (11.5-14.5) % Immature Gran # (0.00-0.04) X 10*3/uL Neutrophils # (1.80-7.70) X 10*3/uL Eosinophils # (0.04-0.35) X 10*3/uL Sodium 131 L (135-145) mmol/L Chloride 95 L (96-109) mmol/L BUN 38.0 H (9.0-27.0) mg/dL BUN/Creatinine Ratio 34.55 H (12.00-20.00) Ratio Glucose 180 H (70-110) mg/dL POC Glucose (mg/dL) 216 H (75-99) mg/dL Calcium 8.3 L (8.7-10.3) mg/dL Alkaline Phosphatase 179 H (41-126) U/L Total Protein 5.3 L (6.2-8.2) g/dL Albumin 3.00 L (3.80-4.90) g/dL Albumin/Globulin Ratio 1.30 L (1.60-3.17) g/dL Microbiology - Last 24 Hours (Table) 02/04/21 15:23 Gram Stain - Preliminary Sputum Sputum Culture - Preliminary Gram Neg Bacilli Assessment and Plan Plan: Bilateral lower extremity cellulitis, improved significantly with IV antibiotics Atrial fibrillation with rapid ventricular response, stable followed by cardiology Hyponatremia sodium on presentation 127 Underlying history of insulin-dependent diabetes mellitus Underlying history of hypertension Underlying history of hyperlipidemia Underlying history of coronary artery disease Underlying history of congestive heart failure Poor nutritional status with moderate protein calorie malnutrition started on insure supplements Bilateral infiltrates possible pneumonia. Infectious disease services are following antibiotics adjusted to Levaquin and Zosyn Acute exacerbation of chronic diastolic congestive heart failure. Patient started on IV Lasix At this time patient is admitted to medical floor, he was started on IV antibiotics, infectious disease following Cardiology is following and adjusting medications at this time dose of metoprolol was increased and digoxin was discontinued Cardiology, pulmonary and infectious disease service is following Patient maintained on IV Lasix Antibiotics of Levaquin and Zosyn Nephrology service is consulted
[2021-02-07] MEDS: MORPHINE SULFATE 4 MG/ML SYRINGE IVP PRN ×2 (11:26→15:47)
[2021-02-07 11:33] LABS: Glucose,Whole Blood 248 mg/dL (75-99)
--- NOTE | 2021-02-07 12:22 | P.PN ---
Subjective Progress Note Date: 02/07/21 Principal diagnosis: Acute on chronic hypoxic respiratory failure related to multiple etiologies including chronic congestive heart failure, COPD Bilateral lower extremity cellulitis Acute on chronic diastolic heart failure Chronic paroxysmal atrial fibrillation with RVR Electrolyte imbalance related to hyponatremia Hypertension hypertensive cardiovascular disease Dyslipidemia coronary artery disease 02/07/2021, patient seen eval examined during the rounds, patient has been started on Decadron, continued to get BiPAP at nighttime, able to decrease the oxygen now currently on 15 L high flow oxygen through nasal cannula and partial nonrebreather mask at 15 L, oxygen saturation are in low 90s, he desaturated up to 70%, BiPAP of 16/8 to be used at nighttime and when necessary during the day, several family members were present at bedside, detailed discussion were done about the etiology pathogenesis and prognosis and point, care plan also discussed with the family services assistant is not ready for hospice, they have been made aware of poor prognosis and success and failure end points, labs are reviewed white cell count is 11,000, hemoglobin is 9, BUN/creatinine is 30 and 1.1, patient remains on Decadron, bronchodilator, DVT prophylaxis with Lovenox and broad- spectrum antibiotics for UTI and pneumonia, computed tomography scan of the chest with IV contrast negative for pulmonary embolism nonspecific pulmonary fibrosis bilateral pleural effusion in addition very large dilated proximal esophagus seen 02/05/2021, patient seen eval reexamined during the rounds, patient remains on BiPAP 12/60-65% oxygen oxygen saturation is 92% patient is tachypneic, he was on high flow oxygen yesterday but today unable to wean him off of BiPAP, patient is awake and alert, sinus present bedside and have a detailed discussion with the patient and son, and discussed with them about her overall poor prognosis and poor likelihood of recovery option of hospice also recommended to them, patient remains on broad-spectrum antibiotics diuretics and continuation of home medications, chest x-ray continue show diffuse bilateral infiltrate likely combination of the pulmonary fibrosis predominantly with some element of the pulmonary edema, patient is being followed by cardiovascular services chronic atrial fibrillation, anticoagulation was discontinued, last echo was in December with ejection fraction of 50%, moderate aortic stenosis, mild TR and MR noted LVH noted as well RVSP less than 35, last set of labs reviewed and performed earlier this morning BUN/creatinine is normal 18.75 BNP is over 2500 02/03/2021, patient seen eval examined during the rounds labs reviewed medications reviewed care plan discussed, Restoril status remains stable denies any chest pain respiratory oxygen saturation is mid 90s on 7 L oxygen, discussed with RN and a prescription provided for BiPAP machine, continue titrated oxygen down to 2-4 L keeping her oxygen over 92%, 02/02/2021, patient seen eval reexamined during the rounds labs reviewed medications reviewed, oxygen gradually being titrated down now on 7 L high flow oxygen saturation is 95% patient has been getting BiPAP machine at nighttime, repeat chest x-ray reviewed bilateral infiltrates seen likely associated with interstitial lung disease with component of fluid overload 02/01/2021, patient seen eval reexamined during the rounds currently patient is on high flow nasal cannula 30 L/m, patient has a sudden onset of respiratory d istress and had a rapid response initially was placed on the BiPAP and given Lasix with that slight improvement is present, able to come off of BiPAP now saturation is 96-98% on 13 L, his urine is positive for Klebsiella pneumonia, patient has been on broad-spectrum antibiotics, chest x-ray performed at rapid response continue show patchy bilateral infiltrate due to chronic pulmonary fibrosis with some component of fluid overload, patient has received Lasix, would recommend to continue Lasix, continue BiPAP machine at nighttime and supplemental oxygen during day with slow taper 01/29/2021, overall remains stable, using oxygen off and on, hemodynamic status stable, remains afebrile, oxygen saturation 90% on 4 L, urine culture came back positive for Klebsiella 01/27/2021, patient seen eval examined during the rounds labs reviewed medications reviewed care plan discussed, patient remains on 2 L oxygen oxygen saturation remained stable shortness of breath stable denies any cough or sputum production, currently on broad-spectrum antibiotics for cellulitis of the legs, edema appears to be improving Patient is a 75-year-old male well-known to me patient admitted into the hospital with swelling and cellulitis of the lower extremity, patient has a long-standing history of congestive heart failure, developed cellulitis which has been marked patient remains on broad-spectrum antibiotics, patient has multiple ALLERGIES and COPD as well, also has issues associated with the BPH, GERD, COPD, congestive heart failure, history of multiple CVAs and TIAs, memory impairment, recent pneumonia as well as sleep disorder breathing and sleep apnea, patient finished therapy of the aspiration pneumonia, her sputum cleared him is positive for MSSA patient was discharged on oral Augmentin, patient last few days have progressive swelling of the lower extremity up to mid thigh level, the chest x-ray performed at the time admission revealed interstitial edema Objective - Vital Signs Vital signs: Vital Signs Temp 97.5 F L 02/07/21 07:00 Pulse 115 H 02/07/21 08:52 Resp 20 02/07/21 07:00 BP 100/62 02/07/21 07:00 Pulse Ox 95 02/07/21 08:42 Intake & Output 02/06/21 02/07/21 02/07/21 18:59 06:59 18:59 Intake Total 760 Balance 760 Weight 110.5 kg Intake: IV 120 kvo 120 Intake, IV Titration 100 Amount Piperacillin-Tazobactam 3 100 .375 gm In Sodium Chloride 0.9% 100 ml @ 25 mls/hr IVPB Q8HR [facility] Rx# :[id number] Oral 540 Other: Voiding Method Indwelling Catheter Indwelling Catheter - Exam - Constitutional General appearance: disheveled, mild distress, morbidly obese - EENT Eyes: EOMI, PERRLA Ears: bilateral: normal - Neck Neck: normal ROM Carotids: bilateral: upstroke normal Thyroid: bilateral: normal size - Respiratory Respiratory: bilateral: diminished, positive bilateral crackles - Cardiovascular Rhythm: regular Heart sounds: normal: S1, S2 - Gastrointestinal General gastrointestinal: normal bowel sounds, soft - Neurologic Neurologic: CNII-XII intact - Musculoskeletal Musculoskeletal: gait normal, generalized weakness, strength equal bilaterally - Psychiatric Psychiatric: A&O x's 3, appropriate affect, intact judgment & insight - Labs CBC & Chem 7: 02/07/21 06:08 02/07/21 06:08 Labs: Abnormal Lab Results - Last 24 Hours (Table) 02/06/21 02/06/21 02/07/21 Range/Units 17:29 20:32 06:08 WBC 11.55 H (4.50-10.00) X 10*3/uL RBC 3.83 L (4.40-5.60) X 10*6/uL Hgb 9.7 L (13.0-17.0) g/dL Hct 32.2 L (39.6-50.0) % MCH 25.3 L (27.0-32.0) pg MCHC 30.1 L (32.0-37.0) g/dL RDW 18.6 H (11.5-14.5) % Immature Gran # 0.44 H (0.00-0.04) X 10*3/uL Neutrophils # 9.21 H (1.80-7.70) X 10*3/uL Eosinophils # 0 L (0.04-0.35) X 10*3/uL Sodium (135-145) mmol/L Chloride (96-109) mmol/L BUN (9.0-27.0) mg/dL BUN/Creatinine Ratio (12.00-20.00) Ratio Glucose (70-110) mg/dL POC Glucose (mg/dL) 195 H 212 H (75-99) mg/dL Calcium (8.7-10.3) mg/dL Alkaline Phosphatase (41-126) U/L Total Protein (6.2-8.2) g/dL Albumin (3.80-4.90) g/dL Albumin/Globulin Ratio (1.60-3.17) g/dL 02/07/21 02/07/21 02/07/21 Range/Units 06:08 06:59 11:30 WBC (4.50-10.00) X 10*3/uL RBC (4.40-5.60) X 10*6/uL Hgb (13.0-17.0) g/dL Hct (39.6-50.0) % MCH (27.0-32.0) pg MCHC (32.0-37.0) g/dL RDW (11.5-14.5) % Immature Gran # (0.00-0.04) X 10*3/uL Neutrophils # (1.80-7.70) X 10*3/uL Eosinophils # (0.04-0.35) X 10*3/uL Sodium 131 L (135-145) mmol/L Chloride 95 L (96-109) mmol/L BUN 38.0 H (9.0-27.0) mg/dL BUN/Creatinine Ratio 34.55 H (12.00-20.00) Ratio Glucose 180 H (70-110) mg/dL POC Glucose (mg/dL) 216 H 248 H (75-99) mg/dL Calcium 8.3 L (8.7-10.3) mg/dL Alkaline Phosphatase 179 H (41-126) U/L Total Protein 5.3 L (6.2-8.2) g/dL Albumin 3.00 L (3.80-4.90) g/dL Albumin/Globulin Ratio 1.30 L (1.60-3.17) g/dL Microbiology - Last 24 Hours (Table) 02/04/21 15:23 Gram Stain - Preliminary Sputum Sputum Culture - Preliminary Gram Neg Bacilli Assessment and Plan Assessment: Pulmonary fibrosis, nonspecific, Suspect evidence of fluid overload with pulmonary fibrosis agree with diuresis BiPAP and supplemental oxygen Large dilated esophagus Failure to wean from BiPAP Acute on chronic hypoxic respiratory failure related to multiple processes including fluid overload COPD pulmonary fibrosis Klebsiella urinary tract infection Bilateral lower extremity cellulitis Acute on chronic diastolic heart failure Chronic paroxysmal atrial fibrillation with RVR Electrolyte imbalance related to hyponatremia Hypertension hypertensive cardiovascular disease Dyslipidemia coronary artery disease Plan: Overall plan is to continue gently diureses, Continue BiPAP at nighttime and when necessary during the day, alternating with the oxygen in the form of high flow nasal cannula and partial nonrebreather mask Reviewed computed tomography scan as finding above Continue IV antibiotics, continue deep breathing sense incentive spirometry, further plan of care as per clinical response to therapy Time with Patient: Greater than 30
--- NOTE | 2021-02-07 13:28 | P.PN ---
Subjective Progress Note Date: 02/07/21 HISTORY OF PRESENT ILLNESS: This is a 75-year-old male with a past medical history significant for congestive heart failure, diabetes mellitus, pulmonary fibrosis, COPD with home oxygen use, and paroxysmal atrial fibrillation. Patient follows with primary care physician out of the [place] but does not follow with a cannery worker regularly. We have been asked to see the patient in consultation for atrial fibrillation. Patient examined at the bedside. Patient was recently hospitalized secondary to bilateral pneumonia. Patient was found to have atrial fibrillation at that time. He was initially started on anticoagulation however this was discontinued as patient was deemed high risk for anticoagulation. Patient was discharged to [facility]. He presented back to the hospital with increased lower extremity edema. He was found to have bilateral lower extremity cellulitis and was started on antibiotics. EKG reveals atrial flutter with 2-1 conduction. Telemetry currently reveals atrial fibrillation with controlled ventricular rate Chest xray pulmonary infiltrates are mostly interstitial and appears slightly worse than last exam. There is evidence for significant interstitial process. Acute pneumonia is possible in the left side. Laboratory data: WBC 4.4. Hemoglobin 10.0. Platelet count 93. Sodium 127. Potassium 5.1. BUN 18. Creatinine 0.59. Current home cardiac medications include spironolactone 75 mg daily, Midodrine 10mg TID, metoprolol tartrate 25 mg 3 times a day, Lasix 60 mg daily, Cardizem 60 mg 3 times a day, digoxin 62.5mcg daily, and aspirin 81mg daily Patient underwent Lexiscan stress test in 2018 which was abnormal. He subsequently underwent cardiac catheterization in [address] Herman revealing normal coronary arteries Echocardiogram completed on 12/28/2020 revealed ejection fraction 50-55%, moderate aortic stenosis, mild mitral regurgitation, and mild tricuspid regurgitation 02/01/2021 Cardiology was reconsulted for CHF. Patient examined at the bedside with Dr. Handley. Patient went into respiratory distress overnight requiring Bipap and IV lasix. Patient is currently on a nasal cannula. He reports his shortness of breath has improved but not resolved. He reports increased lower extremity edema. CXR reveals extensive pulmonary infiltrates. 02/02/2021 Patient examined at the bedside. Patient is currently wearing a Bipap. He reports shortness of breath. He also reports palpitations. Telemetry reveals afib with HR 90-120. Patient has mild improvement in his lower extremity edema. Chest xray from today reveals bilateral diffuse infiltrates correlate for diffuse pneumonia or ARDs. 02/03/2021 Patient examined this morning. Patient is sitting on the side of the bed eating breakfast. Patient wear his BiPAP all night. He is currently on a nasal cannula. Patient states his shortness of breath and his lower extremity edema are improving. He remains on IV Lasix every 12 hours. Fluid balance in the last 24 hours is + 89 mL. BUN 18. Creatinine 0.67. Patient remains in atrial fibrillation. His heart rate is currently uncontrolled. However nursing states his 6:00 dose of Cardizem was not given until recently. 02/05/2021 Patient examined this morning at the bedside. He denies chest pain or pressure. He reports mild shortness of breath. O2 sats are around 88% on nasal cannula. He does have a bipap at the bedside which he as previously wearing. However, it has been removed so the patient could eat breakfast. Heart rate is in the 120s. Nursing reports improvement in heart rates after his morning medications are administered. He remains on IV lasix q12 hours. Kidney function is stable. 02/06/2021 Patient examined this morning at bedside. Patient is currently wearing BiPAP. Patient continues to report mild shortness of breath. He denies chest pain or pressure. Telemetry reveals atrial fibrillation with mildly uncontrolled ventricular rates. She remains on Lasix 40 mg every 8 hours. His lower extremity edema is improving. 02/07/2021 Patient examined this morning at the bedside. He is sitting up on the side of the bed. Patient is wearing a nonrebreather mask with oxygen saturations g reater than 90%. Telemetry reviewed revealing atrial fibrillation. Patient's heart rates are mildly uncontrolled with a heart [place] [id number]. Patient remains on Lasix 40 mg IV every 8 hours. BUN 38. Creatinine 1.1. Intake and output is not accurately documented at the time of this dictation. PHYSICAL EXAM: VITAL SIGNS: Reviewed. GENERAL: Well-developed in no acute distress. HEENT: Head is normocephalic. Pupils are equal, round. Sclerae anicteric. Mucous membranes of the mouth are moist. Neck supple. No JVD or thyromegaly LUNGS: Respirations even and unlabored. Lungs with bibasilar rales noted. HEART: Irregular rate and rhythm. S1 and S2 heard. Systolic murmur noted. ABDOMEN: Soft. Nondistended. Nontender. EXTREMITIES: Normal range of motion. No clubbing or cyanosis. Peripheral pulses intact. Bilateral lower extremity edema present ASSESSMENT: Bilateral infilitrates suggestive of bilateral pneumonia, per CXR 02/02/2021 Lower extremity cellulitis Paroxysmal atrial fibrillation with RVR, not on long-term anticoagulation due to history of bleeding Recent hospitalization for bilateral pneumonia and sepsis Pulmonary fibrosis with home oxygen use Acute exacerbation of chronic diastolic congestive heart failure Hypertension Hyponatremia Valvular heart disease PLAN: Continue current cardiac medications Decrease Lasix from every 8 hours to every 12 hours Monitor kidney function. Await labs from this morning. Daily weights Accurate I&O Medications recently adjusted for optimal heart rate control. We will continue with current regimen for now and continue to monitor telemetry. Further recommendations pending patient course Nurse practitioner note has been reviewed by physician. Signing provider agrees with the documented findings, assessment, and plan of care. Objective - Vital Signs Vital signs: Vital Signs Temp 97.5 F L 02/07/21 07:00 Pulse 115 H 02/07/21 08:52 Resp 20 02/07/21 07:00 BP 100/62 02/07/21 07:00 Pulse Ox 95 02/07/21 08:42 Intake & Output 02/06/21 02/07/21 02/07/21 18:59 06:59 18:59 Intake Total 760 Balance 760 Weight 110.5 kg Intake: IV 120 kvo 120 Intake, IV Titration 100 Amount Piperacillin-Tazobactam 3 100 .375 gm In Sodium Chloride 0.9% 100 ml @ 25 mls/hr IVPB Q8HR [facility] Rx# :[id number] Oral 540 Other: Voiding Method Indwelling Catheter Indwelling Catheter - Labs CBC & Chem 7: 02/07/21 06:08 02/07/21 06:08 Labs: Abnormal Lab Results - Last 24 Hours (Table) 02/06/21 02/06/21 02/07/21 Range/Units 17:29 20:32 06:08 WBC 11.55 H (4.50-10.00) X 10*3/uL RBC 3.83 L (4.40-5.60) X 10*6/uL Hgb 9.7 L (13.0-17.0) g/dL Hct 32.2 L (39.6-50.0) % MCH 25.3 L (27.0-32.0) pg MCHC 30.1 L (32.0-37.0) g/dL RDW 18.6 H (11.5-14.5) % Immature Gran # 0.44 H (0.00-0.04) X 10*3/uL Neutrophils # 9.21 H (1.80-7.70) X 10*3/uL Eosinophils # 0 L (0.04-0.35) X 10*3/uL Sodium (135-145) mmol/L Chloride (96-109) mmol/L BUN (9.0-27.0) mg/dL BUN/Creatinine Ratio (12.00-20.00) Ratio Glucose (70-110) mg/dL POC Glucose (mg/dL) 195 H 212 H (75-99) mg/dL Calcium (8.7-10.3) mg/dL Alkaline Phosphatase (41-126) U/L Total Protein (6.2-8.2) g/dL Albumin (3.80-4.90) g/dL Albumin/Globulin Ratio (1.60-3.17) g/dL 02/07/21 02/07/21 02/07/21 Range/Units 06:08 06:59 11:30 WBC (4.50-10.00) X 10*3/uL RBC (4.40-5.60) X 10*6/uL Hgb (13.0-17.0) g/dL Hct (39.6-50.0) % MCH (27.0-32.0) pg MCHC (32.0-37.0) g/dL RDW (11.5-14.5) % Immature Gran # (0.00-0.04) X 10*3/uL Neutrophils # (1.80-7.70) X 10*3/uL Eosinophils # (0.04-0.35) X 10*3/uL Sodium 131 L (135-145) mmol/L Chloride 95 L (96-109) mmol/L BUN 38.0 H (9.0-27.0) mg/dL BUN/Creatinine Ratio 34.55 H (12.00-20.00) Ratio Glucose 180 H (70-110) mg/dL POC Glucose (mg/dL) 216 H 248 H (75-99) mg/dL Calcium 8.3 L (8.7-10.3) mg/dL Alkaline Phosphatase 179 H (41-126) U/L Total Protein 5.3 L (6.2-8.2) g/dL Albumin 3.00 L (3.80-4.90) g/dL Albumin/Globulin Ratio 1.30 L (1.60-3.17) g/dL Microbiology - Last 24 Hours (Table) 02/04/21 15:23 Gram Stain - Preliminary Sputum Sputum Culture - Preliminary Gram Neg Bacilli
[2021-02-07 17:04] LABS: Glucose,Whole Blood 174 mg/dL (75-99)
[2021-02-07 20:46] LABS: Glucose,Whole Blood 167 mg/dL (75-99)
[2021-02-07] MEDS: FINASTERIDE 5 MG TAB PO SCH (21:13)
[2021-02-07] MEDS: LAMIVUDINE 150 MG PO SCH (21:14)
[2021-02-07] MEDS: INSULIN DETEMIR (LEVEMIR) 100 UNIT/ML SYR SQ SCH (21:14)
[2021-02-07] MEDS ORDERED: LACTULOSE 20 GM/30 ML CUP PO ONE (21:29)
[2021-02-08] MEDS: PIPERACILLIN-TAZOBACTAM 3.375 GM in SODIUM CHLORIDE 0.9% 100 ML IVPB SCH ×3 (00:38→17:38)
[2021-02-08] MEDS: DEXAMETHASONE SOD PHOSPHATE 4 MG/ML 1 ML VIAL IV SCH ×3 (00:38→17:39)
[2021-02-08] MEDS: PYRIDOSTIGMINE 60 MG TAB PO SCH ×6 (00:39→17:39)
[2021-02-08] MEDS: LORazepam 2 MG/ML INJ IV PRN ×3 (02:10→18:32)
[2021-02-08] MEDS: MORPHINE SULFATE 4 MG/ML SYRINGE IVP PRN ×2 (05:46→16:03)
[2021-02-08] MEDS: DILTIAZEM ORAL 30 MG TAB PO SCH ×2 (05:47→15:18)
--- NOTE | 2021-02-08 06:29 | PN ---
PROGRESS NOTE DATE OF SERVICE: 02/07/2021 REASON FOR FOLLOWUP: 1. Bilateral lower extremity cellulitis. 2. Gram-negative pneumonia. INTERVAL HISTORY: Patient is afebrile. The patient is breathing slightly comfortably. Denies having any chest pain, cough, not bringing up any sputum. No abdominal pain or any diarrhea. PHYSICAL EXAMINATION: Blood pressure is 110/70 with a pulse of 102, temperature 98.1. He is 95% on room air. General description is and elderly male up in the chair in no distress. Respiratory system: Unlabored breathing, decreased intensity of breath sounds. No wheeze. Heart: S1, S2. Regular rate and rhythm. Abdomen: Soft, no tenderness. LABS: Hemoglobin 9.7, white count 11.55, BUN of 38, creatinine 1.1. DIAGNOSTIC IMPRESSION AND PLAN: 1. Patient with bilateral lower extremity cellulitis that has been adequately treated. 2. Patient now with Gram-negative pneumonia, is covered with Zosyn and Levaquin to continue while waiting for the culture to finalize. Family at the bedside. Their questions were answered. MMODL / IJN: [id number] /
[2021-02-08 06:50] LABS: Glucose,Whole Blood 159 mg/dL (75-99)
[2021-02-08 08:44] VITALS: TEMP 98.1
[2021-02-08] MEDS: IPRATROPIUM-ALBUTEROL 3 ML NEB INHALATION SCH ×4 (08:46→20:18)
[2021-02-08] MEDS: FUROSEMIDE 10 MG/ML 4 ML VIAL IV SCH (09:49)
[2021-02-08] MEDS: INSULIN ASPART (NovoLOG) 100 UNIT/ML VIAL SQ SCH ×3 (09:52→18:06)
[2021-02-08] MEDS: PANTOPRAZOLE 40 MG TABLET PO SCH (09:54)
[2021-02-08] MEDS: MIDODRINE 5 MG TAB PO SCH ×3 (09:54→17:39)
[2021-02-08] MEDS: lamoTRIgine 100 MG TAB PO SCH ×2 (09:54→17:39)
[2021-02-08] MEDS: SPIRONOLACTONE 25 MG TAB PO SCH (09:54)
[2021-02-08] MEDS: METOPROLOL TARTRATE 50 MG TAB PO SCH ×2 (09:54→15:18)
[2021-02-08] MEDS: MAGNESIUM OXIDE 400 MG TAB PO SCH (09:54)
[2021-02-08] MEDS: MULTIVITAMINS, THERA 1 EACH TAB PO SCH (09:54)
[2021-02-08] MEDS: ASPIRIN 81 MG PO SCH (09:54)
[2021-02-08] MEDS: LEVOFLOXACIN 750 MG TAB PO SCH (09:55)
[2021-02-08] MEDS: ENOXAPARIN 40 MG/0.4 ML SYRINGE SQ SCH (09:55)
[2021-02-08] MEDS: FLUTICASONE 50MCG/SPRAY NASAL 16GM EA NOSTRIL SCH (10:04)
[2021-02-08 11:04] LABS: Basophils # (A) 0.04 X 10*3/uL (0.00-0.10); Basophils % (A) 0.4 %; Eosinophils # (A) 0 X 10*3/uL (0.04-0.35); Eosinophils % (A) 0 %; HCT 32.6 % (39.6-50.0); HGB 9.8 g/dL (13.0-17.0); Lymphocytes # (A) 0.47 X 10*3/uL (0.90-5.00); Lymphocytes % (A) 4.6 %; MCH 25.5 pg (27.0-32.0); MCHC 30.1 g/dL (32.0-37.0); MCV 84.9 fL (80.0-97.0); Mean Platelet Volume 10.5 fL (9.5-12.2); Monocytes # (A) 0.78 X 10*3/uL (0.20-1.00); Monocytes % (A) 7.7 %; Neutrophils # (A) 8.66 X 10*3/uL (1.80-7.70); Neutrophils % (A) 85.6 %; Platelet Count 159 X 10*3/uL (140-440); RBC 3.84 X 10*6/uL (4.40-5.60); RDW 18.6 % (11.5-14.5); WBC 10.12 X 10*3/uL (4.50-10.00)
[2021-02-08 11:20] LABS: Glucose,Whole Blood 186 mg/dL (75-99)
[2021-02-08] MEDS ORDERED: LACTULOSE 20 GM/30 ML CUP PO ONE (11:35)
--- NOTE | 2021-02-08 11:42 | P.PN ---
Subjective Progress Note Date: 02/08/21 Duek Sánchez, is a 75 year old male who presented to [facility] emergency room with a chief complaint of bilateral lower extremity swelling erythema and tenderness He was evaluated in the emergency room vital examination on presentation revealed a temperature of 98.2 pulse 133 respiration 18 blood pressure 117/62 pulse ox 96% on 4 L nasal cannula Laboratory data reveals sodium was low at 127 BUN 18 creatinine 0.59 alkaline phosphatase 213 white blood count count 4.4 hemoglobin 10.0 platelet count low at 93 Testing in the emergency room revealed chest x-ray revealed interstitial pul monary infiltrate suggestive of interstitial fibrosis, with possible left lower lobe pneumonia, EKG revealed atrial flutter with 21 conduction with a heart rate of 129 Patient was admitted to medical floor for further evaluation and treatment Past medical history is significant for Congestive Heart Failure, COPD, history of insulin-dependent Diabetes Mellitus, history of stroke, Hyperlipidemia, H ypertension, Liver Disease, Memory Impairment, Pneumonia, Prostate Disorder, Seizure Disorder, obstructive sleep apnea maintained on CPAP, history of benign prostatic hypertrophy, gastroesophageal reflux disease, history of chronic hepatitis C, history of esophageal viruses with multiple episodes of bleeding in the past, history of myasthenia gravis and history of depression On 01/26/2021 Patient was seen and examined on the medical floor, he is alert and oriented x 3 in no distress, he denies any complaints there is no fever or chills no headache or dizziness no chest pain no shortness of breath no palpitation no cough no nausea or vomiting no abdominal pain no diarrhea no blood in the stools no burning with urination no frequency or urgency and no hematuria, there is no weakness or numbness in any of the extremities no change in vision speech or gait. Patient is complaining of runny nose and requesting a noses pray will add Flonase nose spray at this time he denies any other compl aints. On 01/27/2021 patient is alert and oriented 3. Patient's lower extremity cellulites does appear to be improving. Patient remains on IV Unasyn. Infectious disease and pulmonary services are following. Wound care service is consulted. PT OT consulted. Social work consulted for discharge planning. at this time patient denies chest pain. Patient denies nausea vomiting or diarrhea. Patient denies any urinary burning or frequency On 01/28/2021 Patient was seen and examined on the medical floor, he is alert and oriented x 3 in no distress, he was complaining of nausea and generalized weakness this morning otherwise he denies any complaints there is no fever or chills no headache or dizziness no chest pain no shortness of breath no palpitation no cough or vomiting no abdominal pain no diarrhea no blood in the stools no burning with urination no frequency or urgency and no hematuria, there is no weakness or numbness in any of the extremities no change in vision speech or gait. On 01/29/2021 patient is alert and oriented 3. Patient remains on IV Unasyn. Infectious disease, pulmonary services and wound care service is following. Discussed case with administrator social welfare discharge planning to [facility]. At this time patient denies chest pain or shortness breath. Patient denies nausea vomiting or diarrhea. Patient denies any urinary frequency. On 01/30/2021 Patient was seen and examined on the medical floor, he is alert and oriented x 3 in no distress, he denies any complaints there is no fever or chills no headache or dizziness no chest pain no shortness of breath no palpitation no cough no nausea or vomiting no abdominal pain no diarrhea no blood in the stools no burning with urination no frequency or urgency and no hematuria, there is no weakness or numbness in any of the extremities no change in vision speech or gait., Patient had an episode of hypoglycemia this morning with blurred vision, otherwise he denies any complaints at this time On 01/31/2021 patient is alert and oriented 3. Patient complaining of increased fluid retention. Will resume patient's home Lasix and Aldactone that was currently on hold due to hyponatremia. Cardiology services have been consulted. Lung sounds are clear to auscultation. Patient reports he is having some shortness of breath will order chest x-ray. Patient denies chest pain. Patient denies nausea vomiting or diarrhea. Patient denies any urinary burning or frequency. On 02/01/2021 patient was seen and examined on the medical floor he is somnolent arousable answer questions appropriately when aroused, he had an episode of severe shortness of breath early this morning 18 where called patient received 2 doses of IV Lasix 40 mg he improved significantly dose of Lasix was changed to 40 mg IV every 12 hours, at this time patient is resting comfortably he denies any chest pain or shortness of breath On 02/02/2021 Patient was seen and examined on the medical floor, he is alert and oriented x 3 in no distress, he is complaining of generalized weakness and fatigue otherwise he denies any complaints there is no fever or chills no headache or dizziness no chest pain no shortness of breath no palpitation no cough no nausea or vomiting no abdominal pain no diarrhea no blood in the stools no burning with urination no frequency or urgency and no hematuria, there is no weakness or numbness in any of the extremities no change in vision speech or gait. On 02/03/2021 patient's alert and oriented 3. Patient is complaining of some shortness breath. Patient denies chest pain. Patient denies nausea vomiting or diarrhea. Patient remains on IV Lasix and IV Unasyn. Denies any urinary burning or frequency. Patient's heart rate elevated at 122. Per cardiology medications to be adjusted. On 02/04/2021 patient was seen and examined on the medical floor he is alert and oriented 1 and he is complaining of worsening shortness of breath, repeat chest x-ray was done today and revealed bilateral lung infiltrates suggestive of pneumonia versus pulmonary edema and extra dose of IV Lasix 40 mg was given patient was placed on BiPAP arterial blood gases were ordered, cardiology pulmonary and infectious disease consultants were contacted to reevaluate patient. Dr. Ron infectious disease added Levaquin 750 mg by mouth daily. Patient has poor oral intake and his albumin has dropped to 2.5 will give 1 dose of IV albumin prior to the next IV Lasix dose will follow closely On 02/05/2021 patient is alert and oriented and follows commands. Patient currently satting 88% on nasal cannula BiPAP at bedside patient currently eating breakfast. Patient remains on IV Lasix. Patient denies chest pain. Patient denies nausea vomiting or diarrhea. Patient denies any urinary burning or frequency. Cardiology, pulmonary and infectious disease services are following reviewed. On 02/06/2021 patient was seen and examined on the medical floor, he is alert responsive in no apparent distress, earlier this morning, he had an episode of worsening shortness of breath with decreased O2 sat duration, he was maintained on BiPAP, at this time he is off BiPAP and is maintained on high flow oxygen via nasal cannula and is tolerating well, there is no fever or chills no headache or dizziness no chest pain, he has shortness of breath occasional cough no nausea or vomiting no abdominal pain no diarrhea and no urinary symptoms. On 02/07/2021 patient's alert and oriented currently on nonrebreather. Dexamethasone added per pulmonary. Patient remains on IV Lasix. Antibiotics of Zosyn and Levaquin. Cardiology, pulmonary and infectious disease services following. Nephrology services also consulted. At this time patient denies chest pain. Patient denies nausea vomiting or diarrhea. Patient denies any urinary burning or frequency. On 02/08/2021 patient was seen and examined on the medical floor he is alert responsive in no apparent distress, he is maintained on high flow oxygen via nonrebreather mask, he is laying down in bed, he denies any pain, there is no fever or chills no headache or dizziness no chest pain, he has shortness of breath and requires high flow oxygen, no cough , there is no palpitation no nausea or vomiting no abdominal pain no diarrhea patient has constipation no urinary symptoms. There is a sacral ulcer followed by wound care, with dressing changing 3 days weekly Objective - Vital Signs Vital signs: Vital Signs Temp 98.1 F 02/08/21 08:00 Pulse 85 02/08/21 10:05 Resp 20 02/08/21 10:05 BP 102/62 02/08/21 08:00 Pulse Ox 97 02/08/21 08:00 Intake & Output 02/07/21 02/08/21 02/08/21 18:59 06:59 18:59 Intake Total 770 Output Total 1 Balance 770 -1 Weight 112 kg Intake: IV 100 kvo 100 Intake, IV Titration 100 Amount Piperacillin-Tazobactam 3 100 .375 gm In Sodium Chloride 0.9% 100 ml @ 25 mls/hr IVPB Q8HR [facility] Rx# :[id number] Oral 570 Output: Stool 1 Other: Voiding Method Indwelling Catheter Indwelling Catheter Indwelling Catheter - Exam In general patient is alert and oriented x 3 in no distress HEENT head normocephalic and atraumatic Neck is supple no JVD no goiter no lymphadenopathy no carotid bruit Chest examination reveals a scattered crackles bilaterally no wheezing Cardiac exam reveals regular heart sounds S1 and S2 no gallops no murmurs Abdomen is soft nontender no organomegaly with normal bowel sounds Extremity exam reveals mild edema bilaterally with bilateral pretibial erythema, improving Neurological examination reveals no gross focal deficits - Labs CBC & Chem 7: 02/08/21 06:39 02/07/21 06:08 Labs: Abnormal Lab Results - Last 24 Hours (Table) 02/07/21 02/07/21 02/07/21 Range/Units 11:30 17:02 20:45 WBC (4.50-10.00) X 10*3/uL RBC (4.40-5.60) X 10*6/uL Hgb (13.0-17.0) g/dL Hct (39.6-50.0) % MCH (27.0-32.0) pg MCHC (32.0-37.0) g/dL RDW (11.5-14.5) % Absolute Nucleated RBC (0.00-0.00) X 10*3/uL Immature Gran # (0.00-0.04) X 10*3/uL Neutrophils # (1.80-7.70) X 10*3/uL Lymphocytes # (0.90-5.00) X 10*3/uL Eosinophils # (0.04-0.35) X 10*3/uL NRBC/100 WBC Diff (0.0-0.0) /100 WBCS POC Glucose (mg/dL) 248 H 174 H 167 H (75-99) mg/dL 02/08/21 02/08/21 Range/Units 06:39 06:48 WBC 10.12 H (4.50-10.00) X 10*3/uL RBC 3.84 L (4.40-5.60) X 10*6/uL Hgb 9.8 L (13.0-17.0) g/dL Hct 32.6 L (39.6-50.0) % MCH 25.5 L (27.0-32.0) pg MCHC 30.1 L (32.0-37.0) g/dL RDW 18.6 H (11.5-14.5) % Absolute Nucleated RBC 0.02 H (0.00-0.00) X 10*3/uL Immature Gran # 0.17 H (0.00-0.04) X 10*3/uL Neutrophils # 8.66 H (1.80-7.70) X 10*3/uL Lymphocytes # 0.47 L (0.90-5.00) X 10*3/uL Eosinophils # 0 L (0.04-0.35) X 10*3/uL NRBC/100 WBC Diff 0.2 H (0.0-0.0) /100 WBCS POC Glucose (mg/dL) 159 H (75-99) mg/dL Microbiology - Last 24 Hours (Table) 02/04/21 15:23 Gram Stain - Final Sputum Sputum Culture - Final Klebsiella pneumoniae Assessment and Plan Plan: Bilateral lower extremity cellulitis, improved significantly with IV antibiotics Atrial fibrillation with rapid ventricular response, stable followed by cardiology Hyponatremia sodium on presentation 127 Underlying history of insulin-dependent diabetes mellitus Underlying history of hypertension Underlying history of hyperlipidemia Underlying history of coronary artery disease Underlying history of congestive heart failure Poor nutritional status with moderate protein calorie malnutrition started on insure supplements Bilateral infiltrates possible pneumonia. Infectious disease services are following antibiotics adjusted to Levaquin and Zosyn Acute exacerbation of chronic diastolic congestive heart failure. Patient started on IV Lasix At this time patient is admitted to medical floor, he was started on IV antibiotics, infectious disease following Cardiology is following and adjusting medications at this time dose of metoprolol was increased and digoxin was discontinued Cardiology, pulmonary and infectious disease service is following Patient maintained on IV Lasix Antibiotics of Levaquin and Zosyn Nephrology service is consulted
[2021-02-08 12:23] LABS: African American GFR (CKD) 61.9 (60.0-200.0); Albumin 3.1 g/dL (3.80-4.90); Albumin/Globulin Ratio 1.35 (1.60-3.17); Anion Gap 10.5 mmol/L (4.00-12.00); BUN/Creat Ratio 36.92 Ratio (12.00-20.00); Calcium 8.1 mg/dL (8.7-10.3); Carbon Dioxide 27.5 mmol/L (21.6-31.8); Globulin 2.3 g/dL (1.6-3.3); Non-African American GFR(CKD) 53.4 (60.0-200.0); Potassium 4.6 mmol/L (3.5-5.5); Total Bilirubin 0.8 mg/dL (0.2-1.2); Total Protein 5.4 g/dL (6.2-8.2)
--- NOTE | 2021-02-08 13:16 | P.PN ---
Subjective This is a 75-year-old male with a past medical history significant for congestive heart failure, diabetes mellitus, pulmonary fibrosis, COPD with home oxygen use, and paroxysmal atrial fibrillation. [facility] but does not follow with a financial counselor regularly. We have been asked to see the patient in consultation for atrial fibrillation. Patient was recently hospitalized 12/27/20-01/06/21 secondary to bilateral pneumonia. Patient was found to have atrial fibrillation at that time. He was initially started on anticoagulation however this was discontinued as patient was deemed high risk for anticoagulation. Patient was discharged to [facility]. He presented back to the hospital 01/24/2021 with increased lower extremity edema. He was found to have bilateral lower extremity cellulitis and was started on antibiotics. On admission, EKG revealed atrial flutter with 2-1 conduction HR 129, patient was not given any IV antiarrhythmics or calcium channel blockers. He was started on his home medication and continued to be in atrial fibrillation with controlled ventricular rates. Chest xray on admission revealed pulmonary infiltrates interstitial and appears slightly worse than last exam. There is evidence for significant interstitial process. Acute pneumonia is possible in the left side. For rate controll his digoxin was discontinued, Cardizem was increased to 90mg TID and Metoprolol tartrate was increased to 50mg TID. Most recent Echocardiogram completed on 12/28/2020 revealed ejection fraction 50-55%, moderate aortic stenosis, mild mitral regurgitation, and mild tricuspid regurgitation. Patient underwent Lexiscan stress test in 2018 which was abnormal. He subsequently underwent cardiac catheterization in [address] Herman revealing normal coronary arteries 02/01/2021: Cardiology was reconsulted for CHF. Repeat CXR revealed extensive pulmonary infiltrates. Patient started on IV Lasix. Patient required non- rebreather and BiPAP. 02/05: COVID-[address] chest revealed negative for pulmonary embolism, pleural effusions and extensive pulmonary airspace infiltrates consistent with ARDS and/or CHF. 02/08/2021 Patient examined this morning at the bedside. He is sitting up on the side of the bed. Patient is wearing a nonrebreather mask with oxygen saturations greater than 90%. He denies any chest pain, fever, chills, palpitations. He is having some lower extremity pain, but feels his edema hs improved Telemetry reviewed revealing atrial fibrillation. Patient's heart rates are currently controlled HR 80-90s, occasionally up to 120. Patient remains on Lasix 40 mg IV BID. WBC 10.1, hemoglobin 9.8, platelets 159, sodium 135, potassium 4.6, BUN 48, serum creatinine 1.3. Patient maintained on aspirin 81 mg daily, Cardizem 90 mg TID, 40 mg of IV Lasix BID, Toprol tartrate 50 mg TID, midodrine 10 mg TID, spironolactone 75 mg daily PHYSICAL EXAM: VITAL SIGNS: BP 102/62, heart rate 85, afebrile, maintaining saturations on 15 L nonrebreather GENERAL: Appears short of breath. HEENT: Neck supple. No JVD or thyromegaly LUNGS: Respirations even and unlabored. Lungs with bibasilar rales noted. HEART: Irregular rate and rhythm. S1 and S2 heard. Systolic murmur noted. ABDOMEN: Soft. Nondistended. Nontender. EXTREMITIES: Normal range of motion. No clubbing or cyanosis. Peripheral pulses intact. 2-3+ Bilateral lower extremity edema present ASSESSMENT: Bilateral infilitrates suggestive of bilateral pneumonia Lower extremity cellulitis - infectious disease following Acute on chronic hypoxic respiratory failure Paroxysmal atrial fibrillation with RVR, not on long-term anticoagulation due to history of bleeding Recent hospitalization for bilateral pneumonia and sepsis Pulmonary fibrosis with home oxygen use Acute exacerbation of chronic diastolic congestive heart failure Hypertension Hyponatremia Valvular heart disease PLAN: Continue current cardiac medications Continue Lasix IV BID Monitor kidney function and electrolytes Daily weights Accurate I&O Medications recently adjusted for optimal heart rate control. We will continue with current regimen for now and continue to monitor telemetry. Further recommendations pending patient course Nurse practitioner note has been reviewed by physician. Signing provider agrees with the documented findings, assessment, and plan of care. Objective - Vital Signs Vital signs: Vital Signs Temp 98.1 F 02/08/21 08:00 Pulse 90 02/08/21 12:01 Resp 20 02/08/21 10:05 BP 102/62 02/08/21 08:00 Pulse Ox 97 02/08/21 08:00 Intake & Output 02/07/21 02/08/21 02/08/21 18:59 06:59 18:59 Intake Total 770 Output Total 1 Balance 770 -1 Weight 112 kg Intake: IV 100 kvo 100 Intake, IV Titration 100 Amount Piperacillin-Tazobactam 3 100 .375 gm In Sodium Chloride 0.9% 100 ml @ 25 mls/hr IVPB Q8HR [facility] Rx# :[id number] Oral 570 Output: Stool 1 Other: Voiding Method Indwelling Catheter Indwelling Catheter Indwelling Catheter - Labs CBC & Chem 7: 02/08/21 06:39 02/08/21 06:39 Labs: Abnormal Lab Results - Last 24 Hours (Table) 02/07/21 02/07/21 02/08/21 Range/Units 17:02 20:45 06:39 WBC 10.12 H (4.50-10.00) X 10*3/uL RBC 3.84 L (4.40-5.60) X 10*6/uL Hgb 9.8 L (13.0-17.0) g/dL Hct 32.6 L (39.6-50.0) % MCH 25.5 L (27.0-32.0) pg MCHC 30.1 L (32.0-37.0) g/dL RDW 18.6 H (11.5-14.5) % Absolute Nucleated RBC 0.02 H (0.00-0.00) X 10*3/uL Immature Gran # 0.17 H (0.00-0.04) X 10*3/uL Neutrophils # 8.66 H (1.80-7.70) X 10*3/uL Lymphocytes # 0.47 L (0.90-5.00) X 10*3/uL Eosinophils # 0 L (0.04-0.35) X 10*3/uL NRBC/100 WBC Diff 0.2 H (0.0-0.0) /100 WBCS BUN (9.0-27.0) mg/dL Est GFR (CKD-EPI)NonAf (60.0-200.0) BUN/Creatinine Ratio (12.00-20.00) Ratio Glucose (70-110) mg/dL POC Glucose (mg/dL) 174 H 167 H (75-99) mg/dL Calcium (8.7-10.3) mg/dL Alkaline Phosphatase (41-126) U/L Total Protein (6.2-8.2) g/dL Albumin (3.80-4.90) g/dL Albumin/Globulin Ratio (1.60-3.17) g/dL 02/08/21 02/08/21 02/08/21 Range/Units 06:39 06:48 11:18 WBC (4.50-10.00) X 10*3/uL RBC (4.40-5.60) X 10*6/uL Hgb (13.0-17.0) g/dL Hct (39.6-50.0) % MCH (27.0-32.0) pg MCHC (32.0-37.0) g/dL RDW (11.5-14.5) % Absolute Nucleated RBC (0.00-0.00) X 10*3/uL Immature Gran # (0.00-0.04) X 10*3/uL Neutrophils # (1.80-7.70) X 10*3/uL Lymphocytes # (0.90-5.00) X 10*3/uL Eosinophils # (0.04-0.35) X 10*3/uL NRBC/100 WBC Diff (0.0-0.0) /100 WBCS BUN 48.0 H (9.0-27.0) mg/dL Est GFR (CKD-EPI)NonAf 53.4 L (60.0-200.0) BUN/Creatinine Ratio 36.92 H (12.00-20.00) Ratio Glucose 134 H (70-110) mg/dL POC Glucose (mg/dL) 159 H 186 H (75-99) mg/dL Calcium 8.1 L (8.7-10.3) mg/dL Alkaline Phosphatase 172 H (41-126) U/L Total Protein 5.4 L (6.2-8.2) g/dL Albumin 3.10 L (3.80-4.90) g/dL Albumin/Globulin Ratio 1.35 L (1.60-3.17) g/dL Microbiology - Last 24 Hours (Table) 02/04/21 15:23 Gram Stain - Final Sputum Sputum Culture - Final Klebsiella pneumoniae
--- NOTE | 2021-02-08 15:44 | XR ---
EXAMINATION TYPE: XR chest 1V portable DATE OF EXAM: 02/08/2021 COMPARISON: 02/04/2021 HISTORY: Shortness of breath TECHNIQUE: Single frontal view of the chest is obtained. FINDINGS: Diffuse bilateral patchy airspace disease is stable. Tiny pleural effusion suggested with no definite sizable pneumothorax. Patient is rotated which limits exam. Heart size is stable. Atheros clerotic change aorta. IMPRESSION: Stable diffuse bilateral patchy infiltrate.
--- NOTE | 2021-02-08 15:48 | CONS ---
CONSULTATION REASON FOR CONSULT: Volume overload and edema. HISTORY OF PRESENT ILLNESS: Patient is a 75-year-old male who was initially admitted to the hospital on 01/24/2021 with complaints of lower extremity swelling and some shortness of breath. Chest x-ray showed evidence of left lower lobe pneumonia as well as interstitial infiltrates. The patient has been diuresed. His urine culture was positive for Klebsiella pneumonia and sputum culture came back positive for Klebsiella. The patient is currently maintained on Decadron. He is on IV Lasix 40 mg q.12 hours. He is maintained on antibiotics in the form of Zosyn. The patient has an indwelling Hernandez catheter, 24 hour urine output documented at 2.9 L on February 06, I do not see any documentation of urine output on 02/07/2021. The patient is currently on non-rebreather. His serum creatinine is in 1.1-1.3 mg/dL with previous creatinine 0.59 on initial admission. Blood pressure is on the lower side with systolic in the 90s and low 100 mmHg about 102- 103 mmHg. Patient is afebrile. PAST MEDICAL HISTORY: Significant for hypertension, COPD, CVA/TIA, type 2 diabetes, hyperlipidemia, hearing loss. Memory impairment, gastroesophageal reflux disease, seizure disorder, hypothyroidism, BPH, seizure disorder, pulmonary fibrosis, peripheral neuropathy, GERD, gastroparesis, esophageal varices, chronic liver disease, splenomegaly, history of VRE in the urine. PAST SURGICAL HISTORY: Cardiac catheterization, tonsillectomy, EGDs, right great toe joint replacement, right shoulder rotator cuff repair, bilateral cataract surgeries, inguinal hernia repair, hydrocele repair. SOCIAL HISTORY: Patient is a former smoker. No history of drug abuse or alcohol abuse. MEDICATIONS: Medications prior to admission included: Proscar, Mestinon, Protonix, Lamictal, vitamin D, Imodium, Aldactone, Mucinex, Lanoxin, Cardizem, Lasix, insulin, metoprolol, midodrine. ALLERGIES: ALLERGIES ARE MULTIPLE. PLEASE SEE LIST. REVIEW OF SYSTEMS: As per HPI. Other systems negative. EXAMINATION: Currently comfortable. He is short of breath, maintained on 100% non-rebreather. Blood pressure was 102/62, heart rate 85 per minute he is afebrile. Examination of the HEART S1, S2. Examination of the LUNGS, bilateral breath sounds are heard. Decreased breath sounds at bases with basal crackles heard. ABDOMEN is soft, nontender. Examination of lower EXTREMITIES shows edema 1+ bilaterally. LAB: Show hemoglobin 9.8, white cell count 10.1. Sodium 135, potassium 4.6, creatinine 1.2, BUN 48, albumin 2.1 g/dL. UA shows trace protein on 01/30/2021 with WBC 78. ASSESSMENT AND PLAN: 1. Acute kidney injury secondary to contrast nephropathy as well as hypotension. The patient has an indwelling Hernandez catheter. We will check accurate I's and O's. 2. Acute hypoxic respiratory failure, multifactorial including volume overload, pneumonia with history of pulmonary fibrosis, maintained on 100% non-rebreather. 3. Bilateral lower extremity cellulitis, maintained on IV antibiotics. 4. Atrial fibrillation with RVR currently with controlled ventricular response. 5. Hyponatremia which is hypervolemic, now improved. Sodium was 127 on admission, now about 135-131 mEq/L. 6. Hypotension. Patient was apparently maintained on midodrine at home as well. 7. Urinary tract infection with urine culture growing Klebsiella pneumonia. 8. Pneumonia with sputum culture also growing Klebsiella. 9. Continue with midodrine. Check random cortisol level. Try to avoid hypotension. However, patient is maintained on Cardizem and Lopressor for atrial fibrillation. He needs to have slightly higher perfusion pressures for better diuresis. His heart rate is currently staying on in the 80s. 10.Lower extremity edema, volume overload, maintained on IV Lasix. An echocardiogram is not available for ejection fraction on this admission. However, patient had one in December of 2020 which showed EF 50-55 percent with moderate aortic stenosis. 11.History of coronary artery disease. PLAN: Continue midodrine. Continue current dose of IV Lasix. Check ultrasound of the kidneys. I will add Zaroxolyn. We can also increase the Lasix to 40 mg q.8 hours, need slightly higher perfusion pressures for improved diuresis. However patient needs the metoprolol and Cardizem for heart rate control for atrial fibrillation with RVR. The patient is also encouraged to increase oral protein intake. Thank you for this consultation. We will continue to follow the patient with you during his hospitalization. MMODL / IJN: [id number] /
[2021-02-08] MEDS ORDERED: FUROSEMIDE 10 MG/ML 4 ML VIAL IV SCH (16:00)
--- NOTE | 2021-02-08 16:17 | P.PN ---
Subjective Progress Note Date: 02/08/21 Principal diagnosis: Acute on chronic hypoxic respiratory failure related to multiple etiologies including chronic congestive heart failure, COPD Bilateral lower extremity cellulitis Acute on chronic diastolic heart failure Chronic paroxysmal atrial fibrillation with RVR Electrolyte imbalance related to hyponatremia Hypertension hypertensive cardiovascular disease Dyslipidemia coronary artery disease 02/08/2021, patient seen eval examined during the rounds labs reviewed medications reviewed care plan discussed, patient is slightly more somnolent today however remains on high flow oxygen via nasal cannula as well as the partial nonrebreather mask, oxygen saturation 02/18/1990 percent, he was not able to sleep well last night, patient refused the BiPAP machine as well last night, he remains afebrile, hemodynamically marginal but stable, patient remains on IV steroids IV antibiotics and as well as IV Lasix, chest x-ray performed today reviewed few diffuse bilateral patchy infiltrates are present without any significant change small bilateral pleural effusion noted, CBC stable with white cell count of 10,000 hemoglobin and hematocrit is 9.8 and 32, platelet count 1 59,000, chemistry revealed rising BUN is now 48 and creatinine 1.3, patient is being evaluated by nephrology for acute kidney injury thought to be related to hypotension likely 02/07/2021, patient seen eval examined during the rounds, patient has been started on Decadron, continued to get BiPAP at nighttime, able to decrease the oxygen now currently on 15 L high flow oxygen through nasal cannula and partial nonrebreather mask at 15 L, oxygen saturation are in low 90s, he desaturated up to 70%, BiPAP of 16/8 to be used at nighttime and when necessary during the day, several family members were present at bedside, detailed discussion were done about the etiology pathogenesis and prognosis and point, care plan also discussed with the family worker is not ready for hospice, they have been made aware of poor prognosis and success and failure end points, labs are reviewed white cell count is 11,000, hemoglobin is 9, BUN/creatinine is 30 and 1.1, patient remains on Decadron, bronchodilator, DVT prophylaxis with Lovenox and broad- spectrum antibiotics for UTI and pneumonia, computed tomography scan of the chest with IV contrast negative for pulmonary embolism nonspecific pulmonary fibrosis bilateral pleural effusion in addition very large dilated proximal esophagus seen 02/05/2021, patient seen eval reexamined during the rounds, patient remains on BiPAP -65% oxygen oxygen saturation is 92% patient is tachypneic, he was on high flow oxygen yesterday but today unable to wean him off of BiPAP, patient is awake and alert, sinus present bedside and have a detailed discussion with the patient and son, and discussed with them about her overall poor prognosis and poor likelihood of recovery option of hospice also recommended to them, patient remains on broad-spectrum antibiotics diuretics and continuation of home medications, chest x-ray continue show diffuse bilateral infiltrate likely combination of the pulmonary fibrosis predominantly with some element of the pulmonary edema, patient is being followed by cardiovascular services chronic atrial fibrillation, anticoagulation was discontinued, last echo was in December with ejection fraction of 50%, moderate aortic stenosis, mild TR and MR noted LVH noted as well RVSP less than 35, last set of labs reviewed and performed earlier this morning BUN/creatinine is normal 18.75 BNP is over 2500 02/03/2021, patient seen eval examined during the rounds labs reviewed medications reviewed care plan discussed, Restoril status remains stable denies any chest pain respiratory oxygen saturation is mid 90s on 7 L oxygen, discussed with RN and a prescription provided for BiPAP machine, continue titrated oxygen down to 2-4 L keeping her oxygen over 92%, 02/02/2021, patient seen eval reexamined during the rounds labs reviewed m edications reviewed, oxygen gradually being titrated down now on 7 L high flow oxygen saturation is 95% patient has been getting BiPAP machine at nighttime, repeat chest x-ray reviewed bilateral infiltrates seen likely associated with interstitial lung disease with component of fluid overload 02/01/2021, patient seen eval reexamined during the rounds currently patient is on high flow nasal cannula 30 L/m, patient has a sudden onset of respiratory distress and had a rapid response initially was placed on the BiPAP and given Lasix with that slight improvement is present, able to come off of BiPAP now saturation is 96-98% on 13 L, his urine is positive for Klebsiella pneumonia, patient has been on broad-spectrum antibiotics, chest x-ray performed at rapid response continue show patchy bilateral infiltrate due to chronic pulmonary fibrosis with some component of fluid overload, patient has received Lasix, would recommend to continue Lasix, continue BiPAP machine at nighttime and supplemental oxygen during day with slow taper 01/29/2021, overall remains stable, using oxygen off and on, hemodynamic status stable, remains afebrile, oxygen saturation 90% on 4 L, urine culture came back positive for Klebsiella 01/27/2021, patient seen eval examined during the rounds labs reviewed medic ations reviewed care plan discussed, patient remains on 2 L oxygen oxygen saturation remained stable shortness of breath stable denies any cough or sputum production, currently on broad-spectrum antibiotics for cellulitis of the legs, edema appears to be improving Patient is a 75-year-old male well-known to me patient admitted into the hospital with swelling and cellulitis of the lower extremity, patient has a long-standing history of congestive heart failure, developed cellulitis which has been marked patient remains on broad-spectrum antibiotics, patient has multiple ALLERGIES and COPD as well, also has issues associated with the BPH, GERD, COPD, congestive heart failure, history of multiple CVAs and TIAs, memory impairment, recent pneumonia as well as sleep disorder breathing and sleep apnea, patient finished therapy of the aspiration pneumonia, her sputum cleared him is positive for MSSA patient was discharged on oral Augmentin, patient last few days have progressive swelling of the lower extremity up to mid thigh level, the chest x-ray performed at the time admission revealed interstitial edema Objective - Vital Signs Vital signs: Vital Signs Temp 98.1 F 02/08/21 14:00 Pulse 92 02/08/21 15:57 Resp 21 02/08/21 14:00 BP 102/62 02/08/21 14:00 Pulse Ox 97 02/08/21 14:00 Intake & Output 02/07/21 02/08/21 02/08/21 18:59 06:59 18:59 Intake Total 770 Output Total 1 Balance 770 -1 Weight 112 kg Intake: IV 100 kvo 100 Intake, IV Titration 100 Amount Piperacillin-Tazobactam 3 100 .375 gm In Sodium Chloride 0.9% 100 ml @ 25 mls/hr IVPB Q8HR [facility] Rx# :[id number] Oral 570 Output: Stool 1 Other: Voiding Method Indwelling Catheter Indwelling Catheter Indwelling Catheter - Exam - Constitutional General appearance: disheveled, mild distress, morbidly obese - EENT Eyes: EOMI, PERRLA Ears: bilateral: normal - Neck Neck: normal ROM Carotids: bilateral: upstroke normal Thyroid: bilateral: normal size - Respiratory Respiratory: bilateral: diminished, positive bilateral crackles - Cardiovascular Rhythm: regular Heart sounds: normal: S1, S2 - Gastrointestinal General gastrointestinal: normal bowel sounds, soft - Neurologic Neurologic: CNII-XII intact - Musculoskeletal Musculoskeletal: gait normal, generalized weakness, strength equal bilaterally - Psychiatric Psychiatric: A&O x's 3, appropriate affect, intact judgment & insight - Labs CBC & Chem 7: 02/08/21 06:39 02/08/21 06:39 Labs: Abnormal Lab Results - Last 24 Hours (Table) 02/07/21 02/07/21 02/08/21 Range/Units 17:02 20:45 06:39 WBC 10.12 H (4.50-10.00) X 10*3/uL RBC 3.84 L (4.40-5.60) X 10*6/uL Hgb 9.8 L (13.0-17.0) g/dL Hct 32.6 L (39.6-50.0) % MCH 25.5 L (27.0-32.0) pg MCHC 30.1 L (32.0-37.0) g/dL RDW 18.6 H (11.5-14.5) % Absolute Nucleated RBC 0.02 H (0.00-0.00) X 10*3/uL Immature Gran # 0.17 H (0.00-0.04) X 10*3/uL Neutrophils # 8.66 H (1.80-7.70) X 10*3/uL Lymphocytes # 0.47 L (0.90-5.00) X 10*3/uL Eosinophils # 0 L (0.04-0.35) X 10*3/uL NRBC/100 WBC Diff 0.2 H (0.0-0.0) /100 WBCS BUN (9.0-27.0) mg/dL Est GFR (CKD-EPI)NonAf (60.0-200.0) BUN/Creatinine Ratio (12.00-20.00) Ratio Glucose (70-110) mg/dL POC Glucose (mg/dL) 174 H 167 H (75-99) mg/dL Calcium (8.7-10.3) mg/dL Alkaline Phosphatase (41-126) U/L Total Protein (6.2-8.2) g/dL Albumin (3.80-4.90) g/dL Albumin/Globulin Ratio (1.60-3.17) g/dL 02/08/21 02/08/21 02/08/21 Range/Units 06:39 06:48 11:18 WBC (4.50-10.00) X 10*3/uL RBC (4.40-5.60) X 10*6/uL Hgb (13.0-17.0) g/dL Hct (39.6-50.0) % MCH (27.0-32.0) pg MCHC (32.0-37.0) g/dL RDW (11.5-14.5) % Absolute Nucleated RBC (0.00-0.00) X 10*3/uL Immature Gran # (0.00-0.04) X 10*3/uL Neutrophils # (1.80-7.70) X 10*3/uL Lymphocytes # (0.90-5.00) X 10*3/uL Eosinophils # (0.04-0.35) X 10*3/uL NRBC/100 WBC Diff (0.0-0.0) /100 WBCS BUN 48.0 H (9.0-27.0) mg/dL Est GFR (CKD-EPI)NonAf 53.4 L (60.0-200.0) BUN/Creatinine Ratio 36.92 H (12.00-20.00) Ratio Glucose 134 H (70-110) mg/dL POC Glucose (mg/dL) 159 H 186 H (75-99) mg/dL Calcium 8.1 L (8.7-10.3) mg/dL Alkaline Phosphatase 172 H (41-126) U/L Total Protein 5.4 L (6.2-8.2) g/dL Albumin 3.10 L (3.80-4.90) g/dL Albumin/Globulin Ratio 1.35 L (1.60-3.17) g/dL Microbiology - Last 24 Hours (Table) 02/04/21 15:23 Gram Stain - Final Sputum Sputum Culture - Final Klebsiella pneumoniae Assessment and Plan Assessment: Pulmonary fibrosis, nonspecific, Suspect evidence of fluid overload with pulmonary fibrosis agree with diuresis BiPAP and supplemental oxygen Large dilated esophagus Acute kidney injury Acute on chronic hypoxic respiratory failure related to multiple processes including fluid overload COPD pulmonary fibrosis Klebsiella urinary tract infection Bilateral lower extremity cellulitis Acute on chronic diastolic heart failure Chronic paroxysmal atrial fibrillation with RVR Electrolyte imbalance related to hyponatremia Hypertension hypertensive cardiovascular disease Dyslipidemia coronary artery disease Plan: Overall plan is to continue gently diureses, Continue BiPAP at nighttime and when necessary during the day, alternating with the oxygen in the form of high flow nasal cannula and partial nonrebreather mask Reviewed today's chest x-ray Continue midodrine dry Continue IV antibiotics, IV steroids and Lasix continue deep breathing sense incentive spirometry, further plan of care as per clinical response to therapy Time with Patient: Greater than 30
[2021-02-08 17:24] LABS: Glucose,Whole Blood 136 mg/dL (75-99)
[2021-02-08 19:43] LABS: Glucose,Whole Blood 225 mg/dL (75-99)
[2021-02-08] MEDS ORDERED: propofoL 100 ML IV ONE (20:06)
[2021-02-08 20:22] LABS: Glucose,Whole Blood 263 mg/dL (75-99)
[2021-02-08] MEDS ORDERED: SODIUM CHLORIDE 0.9% 1,000 ML IV SCH (20:45)
[2021-02-08] MEDS ORDERED: NOREPINEPHRINE 4 MG in SODIUM CHLORIDE 0.9% 250 ML IV SCH (20:45)
--- NOTE | 2021-02-08 20:56 | P.PN ---
Progress Note - Text Progress Note Date: 02/08/21 Attended CODE BLUE. Patient was gasping for breath. Bag and mask ventilation initiated with CPR was in progress. Pulse and rhythm successfully restored while continuing bag and mask. Patient has spontaneous breathing but labored effort on return of spontaneous circulation. Patient is for hospice but has a big family who haven't made any decisions about intubation and life support care. Patient was intubated with 7.5 mm endotracheal tube and bilaterally increased checked with auscultation the colorimetric carbon dioxide conformation method. Patient is being transported to the ICU by the resuscitation team.
[2021-02-08] MEDS ORDERED: CHLORHEXIDINE GLUCONATE 15 ML CUP MUCOUS MEM SCH (21:00)
[2021-02-08 21:04] LABS: ABG Base Excess -2.1 mmol/L; ABG HCO3 24 mmol/L (21-25); ABG Oxygen Saturation 81.4 % (94-97); ABG PCO2 46 mmHg (35-45); ABG PH 7.32 (7.35-7.45); ABG TCO2 25 mmol/L (19-24); Allen Test Performed? Yes
[2021-02-08 21:08] LABS: ABG PO2 52 mmHg (83-108)
[2021-02-08] MEDS ORDERED: SODIUM CHLORIDE 0.9% 500 ML 500 ML IV ONE (21:22)
[2021-02-08] MEDS ORDERED: ATROPINE OPHTH SOLN 1% 5ML BTL SUBLINGUAL PRN (21:36)
[2021-02-08] MEDS ORDERED: MORPHINE SULFATE 4 MG/ML SYRINGE IVP ONE (21:36)
[2021-02-08] MEDS ORDERED: MORPHINE SULFATE (100 MG/2 ML) 100 MG in SODIUM CHLORIDE 0.9% 100 ML IV SCH (21:45)
[2021-02-08] MEDS ORDERED: NON FORMULARY DRUG IV SCH (21:45)
[2021-02-08 22:33] VITALS: BP 77/66; PULSE 85; RESP 11
--- NOTE | 2021-02-08 22:51 | XR ---
EXAMINATION TYPE: XR chest 1V portable DATE OF EXAM: 02/08/2021 COMPARISON: 02/08/2021 HISTORY: Check tube placement TECHNIQUE: Single view FINDINGS: The endotracheal tube is 1.4 cm from the ashleigh. There is moderately severe pulmonary airsp shakila edema. There are chest leads. There is nasogastric tube apparently in the stomach. IMPRESSION: Severe pulmonary edema not significantly different than exam 5 hours ago. This could rela te to RDS.
--- NOTE | 2021-02-09 09:10 | ECHOF ---
Referral Reason:CHF MEASUREMENTS -------- HEIGHT: 182.9 cm WEIGHT: 111.6 kg BP: 102/62 RVIDd: 4.4 cm (< 3.3) IVSd: 1.6 cm (0.6 - 1.1) LVIDd: 4.1 cm (3.9 - 5.3) LVPWd: 1.4 cm (0.6 - 1.1) IVSs: 1.9 cm LVIDs: 2.6 cm LVPWs: 1.6 cm LA Diam: 4.7 cm (2.7 - 3.8) Ao Diam: 2.9 cm (2.0 - 3.7) AV Cusp: 1.6 cm (1.5 - 2.6) MV EXCURSION: 12.495 mm (> 18.000) MV EF SLOPE: 43 mm/s (70 - 150) EPSS: 0.8 cm AV maxP.20 mmHg AV meanP.62 mmHg AR PHT: 1085 ms RAP: 5.00 mmHg RVSP: 47.29 mmHg FINDINGS -------- The rhythm appears to be atrial flutter. This was a technically difficult study with suboptimal apical views. The left ventricular size is normal. There is moderate concentric left ventricular hypertrophy. O verall left ventricular systolic function is normal with, an EF between 60 - 65 %. The right ventricle is severely enlarged. The left atrium is moderately dilated. The right atrium is normal in size. Interatrial and interventricular septum intact. There is mild aortic valve sclerosis. There is mild aortic regurgitation. There is mild to modera te aortic stenosis present. Peak/mean gradient across the Aortic Valve is 34.20mmHg / 18.62mmHg. Moderate mitral annular calcification present. Mild tricuspid regurgitation present. There is moderate pulmonary hypertension. The right ventric ular systolic pressure, as measured by Doppler, is 47.29mmHg. There is no pulmonic regurgitation present. The aortic root size is normal. IVC Not well visulized. There is no pericardial effusion. CONCLUSIONS -------- 1. The rhythm appears to be atrial flutter. 2. The left ventricular size is normal. 3. There is moderate concentric left ventricular hypertrophy. 4. Overall left ventricular systolic function is normal with, an EF between 60 - 65 %. 5. The right ventricle is severely enlarged. 6. The left atrium is moderately dilated. 7. There is mild aortic valve sclerosis. 8. There is mild aortic regurgitation. 9. There is mild to moderate aortic stenosis present. 10. Peak/mean gradient across the Aortic Valve is 34.20mmHg / 18.62mmHg. 11. Moderate mitral annular calcification present. 12. Mild tricuspid regurgitation present. 13. There is moderate pulmonary hypertension. 14. The right ventricular systolic pressure, as measured by Doppler, is 47.29mmHg. 15. There is no pulmonic regurgitation present. 16. IVC Not well visulized. 17. There is no pericardial effusion. DAIRY MANAGER: Evy Elizalde RDCS
--- NOTE | 2021-02-16 09:00 | CDI ---
Documentation Clarification Form Date: 02/16/2021 08:41:14 AM From: Genevieve Fernandez CCS, CCDS Admit Date: 01/24/2021 11:01:00 PM Patient Name: Duke Sánchez Visit Number: [id number] Discharge Date: 02/08/2021 11:31:00 PM ATTENTION: The Clinical Documentation Specialists (CDI) and [facility] Coding Staff appreciate your assistance in clarifying documentation. Please respond to the clarification below the line at the bottom and electronically sign. The CDI & [facility] Coding staff will review the response and follow-up if needed. Please note: Queries are made part of the Legal Health Record. If you have any questions, please contact the author of this message via ITS. Dr. Josr Osorio: Pneumonia is documented in the following chart documents: 01/24 ED Note: Previous admission for pneumonia. 01/25 CXR: Acute pneumonia is possible on the left side. 01/25 H/P: Possible left lower lobe pneumonia per the CXR 01/25 ID Consult: Recent admission with aspiration pneumonia. Additional clarification regarding pneumonia is requested. History/Risk Factors per the 01/25 H/P: CHF, COPD, Home O2, IDDM II, CVA, Hyperlipidemia, Hypertension, Liver Disease, Pneumonia, TALIA, Seizure disorder, GERD, Esophageal & Gastric Varices w/bleeding episodes, Myasthenia Gravis, CAD, RI, VRE: urine, Former smoker. Clinical Indicators: Presented to the ED on 01/24 via EMS from a [facility] with bilateral lower extremity Cellulitis, recently on antibiotics. ED Clinical Impression: Bilateral Lower Leg Cellulitis, COPD, Hypertension. 01/24 VS: T 98.2, P 133, R 18 (normal), BP 117/62, PO 96 4Lnc 01/24 LAB: WBC 4.4, Hgb 10.0, Pl Ct 93, Neut 64, Lymph 28, Na 127, Glucose 135, Lactic Acid 1.0, Alk Phos 239, Total Protein 5.1, Albumin 2.6. Imagin/25 CXR: Pneumonia is possible on the left side. 01/31 CXR: Diffuse bilateral areas of infiltrate and small effusion correlate for multifocal pneumonia versus pulmonary edema. 02/02 CXR: Diffuse bilateral infiltrates correlate for diffuse pneumonia or ARDS. 02/04 CXR: Diffuse bilateral infiltrate pneumonia favored over pulmonary edema correlate clinically. 02/08 CXR: Stable diffuse bilateral patchy infiltrate. Treatment 01/24: O2 4Lnc, IV Clindamycin, IV Morphine Please clarify the pneumonia diagnosis and if present please clarify if Present on Admission: [x ] Aspiration Pneumonia, Due to food or vomitus [ ] Bacterial Pneumonia, specify causal organism (if known) [ ] Gram Negative Bacterial Pneumonia [ ] Viral Pneumonia, specify casual organism (if known) [ ] Pneumonia ruled out [ ] Other, please specify [ ] Unable to determine (Template Last Revised: August 2020) MTDD
--- NOTE | 2021-02-17 11:52 | P.DS ---
Providers Date of admission: 01/24/21 23:01 Expected date of discharge: 02/08/21 Attending physician: Josr Osorio Consults: 01/24/21 22:59 Consult Physician Routine Consulting Provider: Emma Ron Consult Reason/Comments: cellulitis, recent admission for pneumonia with + blood culture Do you want consulting provider notified?: Yes 01/25/21 17:22 Consult Physician Routine Consulting Provider: Frankie Basilio Consult Reason/Comments: Shortness of breath Do you want consulting provider notified?: Yes 01/31/21 09:54 Consult Physician Routine Consulting Provider: Iveth Handley Consult Reason/Comments: chf Do you want consulting provider notified?: Yes 02/07/21 10:06 Consult Physician Routine Consulting Provider: Fani Hines Consult Reason/Comments: edema Do you want consulting provider notified?: Yes Primary care physician: Josr Osorio [facility] Course: Discharge diagnosis Bilateral lower extremity cellulitis, improved significantly with IV antibiotics Atrial fibrillation with rapid ventricular response, stable followed by cardiology Hyponatremia sodium on presentation 127 Underlying history of insulin-dependent diabetes mellitus Underlying history of hypertension Underlying history of hyperlipidemia Underlying history of coronary artery disease Underlying history of congestive heart failure Poor nutritional status with moderate protein calorie malnutrition started on insure supplements Bilateral infiltrates possible pneumonia. Infectious disease services are following antibiotics adjusted to Levaquin and Zosyn Acute exacerbation of chronic diastolic congestive heart failure. Patient started on IV Lasix Hospital course Duke Sánchez, is a 75 year old male who presented to [facility] emergency room with a chief complaint of bilateral lower extremity swelling erythema and tenderness He was evaluated in the emergency room vital examination on presentation revealed a temperature of 98.2 pulse 133 respiration 18 blood pressure 117/62 pulse ox 96% on 4 L nasal cannula Laboratory data reveals sodium was low at 127 BUN 18 creatinine 0.59 alkaline phosphatase 213 white blood count count 4.4 hemoglobin 10.0 platelet count low at 93 Testing in the emergency room revealed chest x-ray revealed interstitial pulmonary infiltrate suggestive of interstitial fibrosis, with possible left lower lobe pneumonia, EKG revealed atrial flutter with 21 conduction with a heart rate of 129 Patient was admitted to medical floor for further evaluation and treatment Past medical history is significant for Congestive Heart Failure, COPD, history of insulin-dependent Diabetes Mellitus, history of stroke, Hyperlipidemia, Hypertension, Liver Disease, Memory Impairment, Pneumonia, Prostate Disorder, Seizure Disorder, obstructive sleep apnea maintained on CPAP, history of benign prostatic hypertrophy, gastroesophageal reflux disease, history of chronic hepatitis C, history of esophageal viruses with multiple episodes of bleeding in the past, history of myasthenia gravis and history of depression On 01/26/2021 Patient was seen and examined on the medical floor, he is alert and oriented x 3 in no distress, he denies any complaints there is no fever or chills no headache or dizziness no chest pain no shortness of breath no palpitation no cough no nausea or vomiting no abdominal pain no diarrhea no blood in the stools no burning with urination no frequency or urgency and no hematuria, there is no weakness or numbness in any of the extremities no change in vision speech or gait. Patient is complaining of runny nose and requesting a noses pray will add Flonase nose spray at this time he denies any other complaints. On 01/27/2021 patient is alert and oriented 3. Patient's lower extremity cellulites does appear to be improving. Patient remains on IV Unasyn. Infectious disease and pulmonary services are following. Wound care service is consulted. PT OT consulted. Social work consulted for discharge planning. at this time patient denies chest pain. Patient denies nausea vomiting or diarrhea. Patient denies any urinary burning or frequency On 01/28/2021 Patient was seen and examined on the medical floor, he is alert and oriented x 3 in no distress, he was complaining of nausea and generalized weakness this morning otherwise he denies any complaints there is no fever or chills no headache or dizziness no chest pain no shortness of breath no palpitation no cough or vomiting no abdominal pain no diarrhea no blood in the stools no burning with urination no frequency or urgency and no hematuria, there is no weakness or numbness in any of the extremities no change in vision speech or gait. On 01/29/2021 patient is alert and oriented 3. Patient remains on IV Unasyn. Infectious disease, pulmonary services and wound care service is following. Discussed case with social services coordinator discharge planning to [facility]. At this time patient denies chest pain or shortness breath. Patient denies nausea vomiting or diarrhea. Patient denies any urinary frequency. On 01/30/2021 Patient was seen and examined on the medical floor, he is alert and oriented x 3 in no distress, he denies any complaints there is no fever or chills no headache or dizziness no chest pain no shortness of breath no palpitation no cough no nausea or vomiting no abdominal pain no diarrhea no bl ood in the stools no burning with urination no frequency or urgency and no hematuria, there is no weakness or numbness in any of the extremities no change in vision speech or gait., Patient had an episode of hypoglycemia this morning with blurred vision, otherwise he denies any complaints at this time On 01/31/2021 patient is alert and oriented 3. Patient complaining of increased fluid retention. Will resume patient's home Lasix and Aldactone that was currently on hold due to hyponatremia. Cardiology services have been consulted. Lung sounds are clear to auscultation. Patient reports he is having some shortness of breath will order chest x-ray. Patient denies chest pain. Patient denies nausea vomiting or diarrhea. Patient denies any urinary burning or frequency. On 02/01/2021 patient was seen and examined on the medical floor he is somnolent arousable answer questions appropriately when aroused, he had an episode of severe shortness of breath early this morning 18 where called patient received 2 doses of IV Lasix 40 mg he improved significantly dose of Lasix was changed to 40 mg IV every 12 hours, at this time patient is resting comfortably he denies any chest pain or shortness of breath On 02/02/2021 Patient was seen and examined on the medical floor, he is alert and oriented x 3 in no distress, he is complaining of generalized weakness and fatigue otherwise he denies any complaints there is no fever or chills no headache or dizziness no chest pain no shortness of breath no palpitation no cough no nausea or vomiting no abdominal pain no diarrhea no blood in the stools no burning with urination no frequency or urgency and no hematuria, there is no weakness or numbness in any of the extremities no change in vision speech or gait. On 02/03/2021 patient's alert and oriented 3. Patient is complaining of some shortness breath. Patient denies chest pain. Patient denies nausea vomiting or diarrhea. Patient remains on IV Lasix and IV Unasyn. Denies any urinary burning or frequency. Patient's heart rate elevated at 122. Per cardiology medications to be adjusted. On 02/04/2021 patient was seen and examined on the medical floor he is alert and oriented 1 and he is complaining of worsening shortness of breath, repeat chest x-ray was done today and revealed bilateral lung infiltrates suggestive of pneumonia versus pulmonary edema and extra dose of IV Lasix 40 mg was given patient was placed on BiPAP arterial blood gases were ordered, cardiology pulmonary and infectious disease consultants were contacted to reevaluate patient. Dr. Ron infectious disease added Levaquin 750 mg by mouth daily. Patient has poor oral intake and his albumin has dropped to 2.5 will give 1 dose of IV albumin prior to the next IV Lasix dose will follow closely On 02/05/2021 patient is alert and oriented and follows commands. Patient currently satting 88% on nasal cannula BiPAP at bedside patient currently eating breakfast. Patient remains on IV Lasix. Patient denies chest pain. Patient denies nausea vomiting or diarrhea. Patient denies any urinary burning or frequency. Cardiology, pulmonary and infectious disease services are following reviewed. On 02/06/2021 patient was seen and examined on the medical floor, he is alert responsive in no apparent distress, earlier this morning, he had an episode of worsening shortness of breath with decreased O2 sat duration, he was maintained on BiPAP, at this time he is off BiPAP and is maintained on high flow oxygen via nasal cannula and is tolerating well, there is no fever or chills no headache or dizziness no chest pain, he has shortness of breath occasional cough no nausea or vomiting no abdominal pain no diarrhea and no urinary symptoms. On 02/07/2021 patient's alert and oriented currently on nonrebreather. Dexamethasone added per pulmonary. Patient remains on IV Lasix. Antibiotics of Zosyn and Levaquin. Cardiology, pulmonary and infectious disease services following. Nephrology services also consulted. At this time patient denies chest pain. Patient denies nausea vomiting or diarrhea. Patient denies any urinary burning or frequency. On 02/08/2021 patient was seen and examined on the medical floor he is alert responsive in no apparent distress, he is maintained on high flow oxygen via nonrebreather mask, he is laying down in bed, he denies any pain, there is no fever or chills no headache or dizziness no chest pain, he has shortness of breath and requires high flow oxygen, no cough , there is no palpitation no nausea or vomiting no abdominal pain no diarrhea patient has constipation no urinary symptoms. There is a sacral ulcer followed by wound care, with dressing changing 3 days weekly According to nursing notes on [birth year]23/1936 patient was found unresponsive CODE BLUE was called CPR was initiated patient was then intubated and transferred to the intensive care unit for family was informed and decided to proceed with comfort care measures. Patient on 02/08/2021 at 2155 Plan - Discharge Summary Discharge Rx Participant: Yes New Discharge Prescriptions: No Action Finasteride [Proscar] 5 mg PO HS Pyridostigmine Una [Mestinon] 60 mg PO Q4H Pantoprazole Sodium [Protonix] 40 mg PO DAILY@0600 lamoTRIgine [LaMICtal] 100 mg PO Q12H Cholecalciferol [Vitamin D3 (25 Mcg = 1000 Iu)] 25 mcg PO DAILY Albuterol Sulfate [Proair Hfa] 1 puff INHALATION RT-Q4H PRN PRN Reason: Shortness Of Breath Or Wheezing lamiVUDine 300 mg PO HS Multivitamins, Thera [Multivitamin (formulary)] 1 tab PO DAILY Vitamin E (Dl,Tocopheryl Acet) [Vitamin E] 1,000 unit PO DAILY Loperamide [Imodium] 4 mg PO TID PRN PRN Reason: Diarrhea Cyanocobalamin [Vitamin B-12] 500 mcg PO DAILY Carboxymethylcellulose Sodium [Refresh Tears] 1 drop BOTH EYES DAILY PRN PRN Reason: DRY/IRRITATED EYES Spironolactone [Aldactone] 75 mg PO DAILY Fluticasone Nasal [place] [Flonase Nasal [place]] 2 spray EA NOSTRIL DAILY Morphine Sulfate Ir [MSIR] 15 mg PO Q6HR PRN 3 Days #12 tab PRN Reason: Pain Prostat Awc 30 ml PO DAILY Insulin Detemir [Levemir Flextouch] 40 units SQ HS Insulin Lispro [humaLOG Kwikpen] See Protocol SQ ACHS@08,12,17,21 Magnesium Oxide [Mag-Oxide] 400 mg PO DAILY Digoxin [Lanoxin] 62.5 mcg PO DAILY@0600 Furosemide [Lasix] 60 mg PO DAILY@0600 Metoprolol Tartrate [Lopressor] 25 mg PO TID@0600,1400,2200 Nitroglycerin Sl Tabs [Nitrostat] 0.4 mg SL Q5M PRN PRN Reason: Chest Pain ondansetron HCL [Zofran] 4 mg PO Q8H PRN PRN Reason: Nausea cycloSPORINE 0.05% OPHTH SOLN [Restasis] 1 drop BOTH EYES BID PRN PRN Reason: Dry Eye(S) guaiFENesin [Mucinex] 1,200 mg PO Q12H PRN PRN Reason: Cough Aspirin 81 mg PO DAILY chew Ipratropium-Albuterol Nebulize [Duoneb 0.5 mg-3 mg/3 ml Soln] 3 ml INHALATION RT-QID ml Diltiazem Oral [Cardizem Oral] 60 mg PO TID@0600,1400,2200 Midodrine HCl [ProAmatine] 10 mg PO AC-TID@08,12,17 Discharge Medication List Finasteride [Proscar] 5 mg PO HS 04/14/15 [History] Pyridostigmine Una [Mestinon] 60 mg PO Q4H 04/04/17 [History] Pantoprazole Sodium [Protonix] 40 mg PO DAILY@0600 08/02/17 [History] lamoTRIgine [LaMICtal] 100 mg PO Q12H 08/02/17 [History] Albuterol Sulfate [Proair Hfa] 1 puff INHALATION RT-Q4H PRN 10/25/18 [History] Cholecalciferol [Vitamin D3 (25 Mcg = 1000 Iu)] 25 mcg PO DAILY 10/25/18 [History] lamiVUDine 300 mg PO HS 10/25/18 [History] Cyanocobalamin [Vitamin B-12] 500 mcg PO DAILY 05/09/19 [History] Loperamide [Imodium] 4 mg PO TID PRN 05/09/19 [History] Multivitamins, Thera [Multivitamin (formulary)] 1 tab PO DAILY 05/09/19 [History] Vitamin E (Dl,Tocopheryl Acet) [Vitamin E] 1,000 unit PO DAILY 05/09/19 [History] Carboxymethylcellulose Sodium [Refresh Tears] 1 drop BOTH EYES DAILY PRN 12/27/20 [History] Fluticasone Nasal [place] [Flonase Nasal [place]] 2 spray EA NOSTRIL DAILY 12/27/20 [History] Spironolactone [Aldactone] 75 mg PO DAILY 12/27/20 [History] cycloSPORINE 0.05% OPHTH SOLN [Restasis] 1 drop BOTH EYES BID PRN 12/27/20 [History] guaiFENesin [Mucinex] 1,200 mg PO Q12H PRN 12/27/20 [History] ondansetron HCL [Zofran] 4 mg PO Q8H PRN 12/27/20 [History] Aspirin 81 mg PO DAILY chew 01/06/21 [Rx] Ipratropium-Albuterol Nebulize [Duoneb 0.5 mg-3 mg/3 ml Soln] 3 ml INHALATION RT-QID ml 01/06/21 [Rx] Morphine Sulfate Ir [MSIR] 15 mg PO Q6HR PRN 3 Days #12 tab 01/06/21 [Rx] Digoxin [Lanoxin] 62.5 mcg PO DAILY@0600 01/24/21 [History] Diltiazem Oral [Cardizem Oral] 60 mg PO TID@0600,1400,2200 01/24/21 [History] Furosemide [Lasix] 60 mg PO DAILY@0600 01/24/21 [History] Insulin Detemir [Levemir Flextouch] 40 units SQ HS 01/24/21 [History] Insulin Lispro [humaLOG Kwikpen] See Protocol SQ ACHS@08,12,,01/24/21 [History] Magnesium Oxide [Mag-Oxide] 400 mg PO DAILY 01/24/21 [History] Metoprolol Tartrate [Lopressor] 25 mg PO TID@0600,1400,2200 01/24/21 [History] Midodrine HCl [ProAmatine] 10 mg PO AC-TID@08,12,17 01/24/21 [History] Nitroglycerin Sl Tabs [Nitrostat] 0.4 mg SL Q5M PRN 01/24/21 [History] Prostat Awc 30 ml PO DAILY 01/24/21 [History] Follow up Appointment(s)/Referral(s): Josr Osorio MD [Primary Care Provider] - 1-2 days (office closed at this time call to make D/C appointment ) Discharge Disposition: - Preliminary Cause of Preliminary Cause of : Acute exacerbation of his congestive heart failure, pneumonia
== END 2021-02-08 23:31 | disposition expired | DRG 177 ==
LOC: EC 20:20 → 4SSUR 23:01 → OBSVTOIN 23:01 → 2SICU 02-08 20:45
PROVIDERS: ADMIT Internal Medicine; ATTEND Internal Medicine
PROC: 5A0935A Assistance with Respiratory Ventilation, Less than 24 Consecutive Hours, High Flow/Velocity Cannula (ICD-10-PCS; 2021-01-30)
PROC: 5A09557 Assistance with Respiratory Ventilation, Greater than 96 Consecutive Hours, Continuous Positive Airway Pressure (ICD-10-PCS; principal; 2021-02-01)
PROC: 5A12012 Performance of Cardiac Output, Single, Manual (ICD-10-PCS; 2021-02-08)
PROC: 0BH17EZ Insertion of Endotracheal Airway into Trachea, Via Natural or Artificial Opening (ICD-10-PCS; 2021-02-08)
DX: J69.0 Pneumonitis due to inhalation of food and vomit (principal); J81.0 Acute pulmonary edema; J96.21 Acute and chronic respiratory failure with hypoxia; L03.115 Cellulitis of right lower limb; E87.1 Hypo-osmolality and hyponatremia; N39.0 Urinary tract infection, site not specified; I48.92 Unspecified atrial flutter; E44.0 Moderate protein-calorie malnutrition; N17.9 Acute kidney failure, unspecified; I50.32 Chronic diastolic (congestive) heart failure; Z16.24 Resistance to multiple antibiotics; J44.0 Chronic obstructive pulmonary disease with (acute) lower respiratory infection; L03.116 Cellulitis of left lower limb; I85.00 Esophageal varices without bleeding; J15.0 Pneumonia due to Klebsiella pneumoniae; Z79.4 Long term (current) use of insulin; Z79.82 Long term (current) use of aspirin; K21.9 Gastro-esophageal reflux disease without esophagitis; Z20.822 Contact with and (suspected) exposure to COVID-19; Z86.73 Personal history of transient ischemic attack (TIA), and cerebral infarction without residual deficits; E78.5 Hyperlipidemia, unspecified; Z51.5 Encounter for palliative care; E66.01 Morbid (severe) obesity due to excess calories; K74.60 Unspecified cirrhosis of liver; J84.10 Pulmonary fibrosis, unspecified; I86.4 Gastric varices; N40.0 Benign prostatic hyperplasia without lower urinary tract symptoms; Z88.1 Allergy status to other antibiotic agents; E11.622 Type 2 diabetes mellitus with other skin ulcer; G89.29 Other chronic pain; M54.9 Dorsalgia, unspecified; E11.42 Type 2 diabetes mellitus with diabetic polyneuropathy; Z87.01 Personal history of pneumonia (recurrent); I11.0 Hypertensive heart disease with heart failure; B18.2 Chronic viral hepatitis C; G70.00 Myasthenia gravis without (acute) exacerbation; Z87.891 Personal history of nicotine dependence; I48.0 Paroxysmal atrial fibrillation; E87.5 Hyperkalemia; I25.10 Atherosclerotic heart disease of native coronary artery without angina pectoris; B96.1 Klebsiella pneumoniae [K. pneumoniae] as the cause of diseases classified elsewhere; G47.33 Obstructive sleep apnea (adult) (pediatric); Z99.81 Dependence on supplemental oxygen; E11.649 Type 2 diabetes mellitus with hypoglycemia without coma; Z68.33 Body mass index [BMI] 33.0-33.9, adult; K52.9 Noninfective gastroenteritis and colitis, unspecified; K22.8 Other specified diseases of esophagus; E03.9 Hypothyroidism, unspecified; E11.43 Type 2 diabetes mellitus with diabetic autonomic (poly)neuropathy; K31.84 Gastroparesis; R04.0 Epistaxis; Z96.1 Presence of intraocular lens; Z80.1 Family history of malignant neoplasm of trachea, bronchus and lung; F32.9 Major depressive disorder, single episode, unspecified; G40.909 Epilepsy, unspecified, not intractable, without status epilepticus; H91.90 Unspecified hearing loss, unspecified ear; I25.2 Old myocardial infarction; L98.499 Non-pressure chronic ulcer of skin of other sites with unspecified severity; N14.1 Nephropathy induced by other drugs, medicaments and biological substances; T50.8X5A Adverse effect of diagnostic agents, initial encounter; Z79.899 Other long term (current) drug therapy; L89.152 Pressure ulcer of sacral region, stage 2; I08.3 Combined rheumatic disorders of mitral, aortic and tricuspid valves; Z83.6 Family history of other diseases of the respiratory system; Z81.1 Family history of alcohol abuse and dependence; Z83.79 Family history of other diseases of the digestive system
CPT/HCPCS: 36415; 36600; 71045; 71046; 71275; 80048; 80053; 81001; 82805; 83605; 83880; 84145; 85025; 85610; 85730; 86140; 87040; 87070; 87077; 87086; 87186; 87205; 87449; 93005; 93306; 93970; 94002; 94640; 94660; 94760